=== PATIENT | female | born 1975 | race Caucasian/White ===

== ENCOUNTER 2024-07-05 12:17 | Outpatient (RCR) | payer OTHER, SELFPAY | END 2024-07-06 13:03 | disposition home or self-care (01) | LOC: PT 12:17 | PROVIDERS: PCP Family Medicine; Visit Provider Family Medicine | DX: M54.50 Low back pain, unspecified (principal); G89.29 Other chronic pain | CPT/HCPCS: 97163 ==

== ENCOUNTER 2025-02-26 12:22 | Emergency (ER) | payer OTHER, SELFPAY ==
[2025-02-26 12:35] VITALS: BP 143/79; PULSE 71; TEMP 36.6; O2SAT 96; BMI 37.8
--- NOTE | 2025-02-26 12:42 | ED.GENADUL1 ---
HPI HPI - General Adult General Chief complaint: GI Bleed Stated complaint: RECTAL BLEEDING Time Seen by Provider: 02/26/25 12:26 Source: patient and family Mode of arrival: Wheelchair Limitations: no limitations History of Present Illness HPI narrative: 49-year-old female presents for rectal bleeding. She states that about 4 days ago her abdomen started hurting and then today she had bright red blood per rectum. She has never passed blood like this before. She had a colonoscopy years ago and had polyps removed. No fever or vomiting. Related Data Home Medications ?Medication ?Instructions ?Recorded ?Confirmed albuterol sulfate 90 mcg/actuation 2 inh inhalation Q6H PRN shortness 02/26/25 02/26/25 aerosol inhaler (Ventolin HFA) of breath or wheezing aspirin 81 mg tablet,delayed 81 mg PO DAILY 02/26/25 02/26/25 release (Adult Low Dose Aspirin) atorvastatin 80 mg tablet 80 mg PO DAILY 02/26/25 02/26/25 brivaracetam 100 mg tablet 200 mg PO BID 02/26/25 02/26/25 (Briviact) bupropion HCl 100 mg tablet 100 mg PO TID 02/26/25 02/26/25 cholecalciferol (vitamin D3) 50 50 mcg PO DAILY 02/26/25 02/26/25 mcg (2,000 unit) capsule dulaglutide 3 mg/0.5 mL 3 mg subcut QWEEK 02/26/25 02/26/25 subcutaneous pen injector (Trulicity) ezetimibe 10 mg tablet 10 mg PO DAILY 02/26/25 02/26/25 fenofibrate nanocrystallized 145 145 mg PO DAILY 02/26/25 02/26/25 mg tablet gabapentin 600 mg tablet 1,200 mg PO TID 02/26/25 02/26/25 lamotrigine 200 mg tablet 200 mg PO DAILY 02/26/25 02/26/25 lubiprostone 24 mcg capsule 24 mcg PO BID PRN IBS 02/26/25 02/26/25 (Amitiza) meclizine 25 mg tablet 25 mg PO .Q6HR PRN dizziness 02/26/25 02/26/25 metoprolol tartrate 25 mg tablet 25 mg PO BID 02/26/25 02/26/25 montelukast 10 mg tablet 10 mg PO DAILY 02/26/25 02/26/25 nitroglycerin 0.4 mg sublingual 0.4 mg sublingual Q5M PRN chest 02/26/25 02/26/25 tablet pain ondansetron HCl 8 mg tablet 8 mg PO Q8H PRN nausea and vomiting 02/26/25 02/26/25 pantoprazole 40 mg tablet,delayed 40 mg PO BID 02/26/25 02/26/25 release sucralfate 1 gram tablet (Carafate) 1 g PO Q6H PRN stomach upset 02/26/25 02/26/25 topiramate 100 mg tablet 100 mg PO BID 02/26/25 02/26/25 umeclidinium 62.5 mcg-vilanterol 1 inh inhalation DAILY 02/26/25 02/26/25 25 mcg/actuation powdr for inhalation (Anoro Ellipta) valacyclovir 500 mg tablet 500 mg PO DAILY 02/26/25 02/26/25 Allergies Allergy/AdvReac Type Severity Reaction Status Date / Time dimenhydrinate (From Allergy Severe tongue Verified 02/26/25 12:35 Dramamine) swelling pregabalin (From Lyrica) Allergy Severe tonue Verified 02/26/25 12:35 swelling seafood Allergy Severe Hives Uncoded 02/26/25 13:18 Opioid HPI Opioid Management Most Recent Opioid Data: No Data to Display Review of Systems ROS Narrative A ten point review of systems is negative except as noted above. [facility] Medical History (Updated 02/26/25 @ 14:34 by Marcio Su MD) Bradycardia ?R00.1 - Bradycardia, unspecified (ICD-10) HTN (hypertension) ?I10 - Essential (primary) hypertension (ICD-10) GERD (gastroesophageal reflux disease) ?K21.9 - Gastro-esophageal reflux disease without esophagitis (ICD-10) IBS (irritable bowel syndrome) ?K58.9 - Irritable bowel syndrome, unspecified (ICD-10) On home oxygen therapy ?Z99.81 - Dependence on supplemental oxygen (ICD-10) Diabetes ?E11.9 - Type 2 diabetes mellitus without complications (ICD-10) Cardiac pacemaker ?Z95.0 - Presence of cardiac pacemaker (ICD-10) Social History Little interest or pleasure in doing things: not at all Feeling down, depressed, or hopeless: not at all Exam Narrative Exam Narrative: Nurses note and vital signs reviewed and patient is not hypoxic. General: The patient appears in no apparent distress. Patient is resting on cart. Skin: Warm, dry, no pallor noted. There is no rash noted. Head: Normocephalic, atraumatic Eye: Normal conjunctiva, no drainage Ears, Nose, Mouth, and Throat: oral mucosa is moist. Nares patent. Cardiovascular: Regular Rate and Rhythm Respiratory: Patient is in no distress, no accessory muscle use, lungs are clear to auscultation, no wheezing, rales or rhonchi Back: non-tender GI: Obese, mild diffuse tenderness. Perianal examination shows no external hemorrhoids. Musculoskeletal: The patient has no evidence of calf tenderness, no pitting edema, symmetrical pulses noted bilaterally Neurological: A&O, normal speech Psychiatric: Cooperative Constitutional Vital Signs, click to edit/add: Last Vital Signs Temp 97.9 F 02/26/25 12:35 Pulse 71 02/26/25 12:35 Resp 18 02/26/25 12:35 BP 143/79 H 02/26/25 12:35 Pulse Ox 96 02/26/25 12:35 O2 Del Method Room Air 02/26/25 12:35 Course Vital Signs Vital signs: Vital Signs Temperature 97.9 F 02/26/25 12:35 Pulse Rate 71 02/26/25 12:35 Respiratory Rate 18 02/26/25 12:35 Blood Pressure 143/79 H 02/26/25 12:35 Pulse Oximetry 96 02/26/25 12:35 Oxygen Delivery Method Room Air 02/26/25 12:35 Temperature 97.9 F 02/26/25 12:35 Pulse Rate 71 02/26/25 12:35 Respiratory Rate 18 02/26/25 12:35 Blood Pressure 143/79 H 02/26/25 12:35 Pulse Oximetry 96 02/26/25 12:35 Oxygen Delivery Method Room Air 02/26/25 12:35 Medical Decision Making MDM Narrative Medical decision making narrative: Hemoglobin is normal. CT scan shows no cause for the bleeding. There is no evidence of colitis or diverticulitis. She is referred to general surgery for follow-up. Treatment diagnosis and follow-up were discussed with the patient. Differential Diagnosis Differential Diagnosis: Hemorrhoid, diverticulitis, colitis Lab Data Lab results reviewed: Yes I reviewed the patient's lab results Labs: Lab Results 02/26/25 Range/Units 13:00 WBC 9.3 (4.0-11.0) 10^3/uL RBC 5.06 (4.20-5.40) 10^6/uL Hgb 17.0 H (12.0-16.0) g/dL Hct 50.8 H (36.0-48.0) % MCV 100.4 H (81.0-99.0) fL MCH 33.6 (26.7-34.0) pg MCHC 33.5 (29.9-35.2) g/dL RDW 13.3 (11.0-15.0) % Plt Count 193 (150-450) 10^3/uL MPV 10.9 (9.5-13.5) fL Neut % (Auto) 55.4 (43.0-75.0) % Lymph % (Auto) 36.2 (20.5-60.0) % [place] % (Auto) 5.4 (1.7-12.0) % Eos % (Auto) 2.1 (0.9-7.0) % Baso % (Auto) 0.5 (0.2-2.0) % Neut # (Auto) 5.1 (1.4-6.5) 10^3/uL Lymph # (Auto) 3.4 (1.2-3.8) 10^3/uL [place] # (Auto) 0.5 (0.3-0.8) 10^3/uL Eos # (Auto) 0.2 (0.0-0.7) 10^3/uL Baso # (Auto) 0.1 (0.0-0.1) 10^3/uL Abs Immat Gran (auto) 0.04 H (0.00-0.03) 10^3/uL Imm/Tot Granulo (auto) 0.4 (0.0-0.5) % Sodium 134 L (136-145) mmol/L Potassium 4.5 (3.5-5.1) mmol/L Chloride 104 (98-107) mmol/L Carbon Dioxide 19.9 L (21.0-32.0) mmol/L Anion Gap 14.6 BUN 20.0 H (7.0-18.0) mg/dL Creatinine 1.04 H (0.55-1.02) mg/dL Est GFR ( Amer) >60 (>=60 mL/min/1.73m^2) Est GFR (Non-Af Amer) 56 L (>=60 mL/min/1.73m^2) BUN/Creatinine Ratio 19.2 Glucose 166 H (74-106) mg/dL Calcium 8.5 (8.5-10.1) mg/dL Total Bilirubin 0.3 (0.2-1.0) mg/dL Direct Bilirubin 0.1 (0.0-0.2) mg/dL AST 18 (15-37) U/L ALT 32 (14-59) U/L Alkaline Phosphatase 51 (46-116) U/L Total Protein 6.8 (6.4-8.2) g/dL Albumin 3.2 L (3.4-5.0) g/dL Globulin 3.6 g/dL Albumin/Globulin Ratio 0.9 Amylase 34 (25-115) U/L Lipase 71.0 (16.0-77.0) U/L Imaging Data CT scan - abdomen: Radiologist's impression: Number fat stranding, no other acute process in the abdomen/pelvis Discharge Plan Discharge Chief Complaint: GI Bleed Clinical Impression: Rectal bleed Patient Disposition: Home, Self-Care Time of Disposition Decision: 14:34 Condition: Good Mode of Transportation: Private Vehicle Prescriptions / Home Meds: No Action atorvastatin 80 mg tablet 80 mg PO DAILY Briviact 100 mg tablet 200 mg PO BID cholecalciferol (vitamin D3) 50 mcg (2,000 unit) capsule 50 mcg PO DAILY Trulicity 3 mg/0.5 mL pen injector 3 mg SUBCUT QWEEK ezetimibe 10 mg tablet 10 mg PO DAILY fenofibrate nanocrystallized 145 mg tablet 145 mg PO DAILY gabapentin 600 mg tablet 1,200 mg PO TID lamotrigine 200 mg tablet 200 mg PO DAILY meclizine 25 mg tablet 25 mg PO .Q6HR PRN (Reason: dizziness) metoprolol tartrate 25 mg tablet 25 mg PO BID montelukast 10 mg tablet 10 mg PO DAILY nitroglycerin 0.4 mg tablet, sublingual 0.4 mg sublingual Q5M PRN (Reason: chest pain) pantoprazole 40 mg tablet,delayed release (DR/EC) 40 mg PO BID topiramate 100 mg tablet 100 mg PO BID Anoro Ellipta 62.5-25 mcg/actuation blister with device 1 inh INHALATION DAILY valacyclovir 500 mg tablet 500 mg PO DAILY sucralfate [Carafate] 1 gram tablet 1 g PO Q6H PRN (Reason: stomach upset) lubiprostone [Amitiza] 24 mcg capsule 24 mcg PO BID PRN (Reason: IBS) bupropion HCl 100 mg tablet 100 mg PO TID Rx Instructions: administer 6 hours apart ondansetron HCl 8 mg tablet 8 mg PO Q8H PRN (Reason: nausea and vomiting) Rx Instructions: 1st dose 1-2 hr before radiation albuterol sulfate [Ventolin HFA] 90 mcg/actuation HFA aerosol inhaler 2 inh inhalation Q6H PRN (Reason: shortness of breath or wheezing) aspirin [Adult Low Dose Aspirin] 81 mg tablet,delayed release (DR/EC) 81 mg PO DAILY Print Language: [place] Instructions: Rectal Bleeding (ED) Referrals: Pool Treadwell MD [Physician] - 1 week Pool Buchanan MD [Physician] - 1 week TUSHAR MALDONADO [Primary Care Provider] - 1 week
[2025-02-26 13:05] LABS: Basophils Absolute Auto 0.1 10^3/uL (0.0-0.1); Basophils Percent Auto 0.5 % (0.2-2.0); Eosinophils Absolute Auto 0.2 10^3/uL (0.0-0.7); Eosinophils Percent Auto 2.1 % (0.9-7.0); Hematocrit 50.8 % (36.0-48.0); Immature Granulocytes Abs Auto 0.04 10^3/uL (0.00-0.03); Immature Granulocytes Pct Auto 0.4 % (0.0-0.5); Lymphocytes Absolute Auto 3.4 10^3/uL (1.2-3.8); Lymphocytes Percent Auto 36.2 % (20.5-60.0); Mean Corpuscular HGB Conc 33.5 g/dL (29.9-35.2); Mean Corpuscular Hemoglobin 33.6 pg (26.7-34.0); Mean Corpuscular Volume 100.4 fL (81.0-99.0); Mean Platelet Volume 10.9 fL (9.5-13.5); Monocytes Absolute Auto 0.5 10^3/uL (0.3-0.8); Monocytes Percent Auto 5.4 % (1.7-12.0); Neutrophils Absolute Auto 5.1 10^3/uL (1.4-6.5); Neutrophils Percent Auto 55.4 % (43.0-75.0); Platelet Count 193 10^3/uL (150-450); Red Blood Count 5.06 10^6/uL (4.20-5.40); Red Cell Distribution Width 13.3 % (11.0-15.0); White Blood Count 9.3 10^3/uL (4.0-11.0)
[2025-02-26 13:22] LABS: Alanine Aminotransferase 32 U/L (14-59); Albumin Globulin Ratio 0.9; Albumin Level 3.2 g/dL (3.4-5.0); Alkaline Phosphatase 51 U/L (46-116); Anion Gap 14.6; Aspartate Amino Transferase 18 U/L (15-37); BUN Creatinine Ratio 19.2; Bilirubin Direct 0.1 mg/dL (0.0-0.2); Bilirubin Total 0.3 mg/dL (0.2-1.0); Calcium 8.5 mg/dL (8.5-10.1); Carbon Dioxide 19.9 mmol/L (21.0-32.0); Chloride 104 mmol/L (98-107); Estimated GFR (African America >60 (>=60 mL/min/1.73m^2); Estimated GFR (Non-African Ame 56 (>=60 mL/min/1.73m^2); Globulin 3.6 g/dL; Glucose 166 mg/dL (74-106); Potassium 4.5 mmol/L (3.5-5.1); Sodium 134 mmol/L (136-145); Total Protein 6.8 g/dL (6.4-8.2)
[2025-02-26 13:25] LABS: Amylase 34 U/L (25-115)
== END 2025-02-26 14:48 | disposition home or self-care (01) ==
PROVIDERS: Emergency Provider Emergency Medicine; PCP Family Medicine
DX: K62.5 Hemorrhage of anus and rectum (principal); Z86.0100 Personal history of colon polyps, unspecified; Z95.0 Presence of cardiac pacemaker
CPT/HCPCS: 36415; 74176; 80048; 80076; 82150; 83690; 85025; 99284

== ENCOUNTER 2025-08-15 10:48 | Emergency (ER) | payer OTHER, SELFPAY ==
[2025-08-15 11:03] VITALS: BP 107/80; PULSE 81; TEMP 37.2; O2SAT 97; BMI 33.5
--- OUTSIDE RECORDS SUMMARY | 2025-08-15 11:08 | XMS_ITS | CCD ---
Author Organization [facility] Care Team Providers Care Oracle Drm Consultant Name Role Phone UNKNOWN, PROVIDER Unavailable Unavailable UNKNOWN, PROVIDER Unavailable Unavailable UNKNOWN, PHYSICIAN Unavailable Unavailable UNKNOWN, PHYSICIAN Unavailable Unavailable ELDER EVANS Unavailable Unavailable MINDY MORGAN Unavailable Unavailable BERNARDO, VESELIN Unavailable Unavailable MINDY MORGAN F Unavailable Unavailable Narciso Funez Unavailable Unavailable Omoregie, Oliver Unavailable Unavailable Mindy Morgan Unavailable Unavailable Leroy Marwilda T Unavailable Unavailable Omoregie, Oliver Unavailable Unavailable Addie, Anat Unavailable Unavailable Arafah, Baha Unavailable Unavailable Mindy Morgan Unavailable Unavailable Unavailable Mindy Morgan Unavailable Robert Spann Unavailable Omoregie, Oliver Unavailable Unavailable Gilda Leong Unavailable Mindy Morgan Primary Care Physician Rose Mary White Unavailable Mindy Morgan Primary Care Provider Brianna Kamara Unavailable Mindy Morgan Primary Care Provider Brianna Kamara Unavailable [phone] DIONISIO, NONE LISTED Primary Care Unavaila ble JANE LEVINE Consulting Unavailable JANE LEVINE Attending Unavailable JANE LEVINE Admitting Unavailable CHAS ANDUJAR Consulting Unavailable PROVIDER, UNKNOWN Attending Unavailable PROVIDER, UNKNOWN Admitting Unavailable Unavailable Primary Care Provider UnavailDr. Mindy Smith Primary Care Un available Macho, . Gilberto Yomaira Referring Jamin Estrada, Ms. Gilberto Burnette Attending Mindy Ghotra MD Primary Care Provider Brianna Kamara DO Unavailable Eddie SHANKS, Mindy Hancock Primary Care Provid er VI SALDANA Attending Unavailable MINDY MORGAN Primary Care Corrine Morgan MD, Mindy Hancock Primary [facility] Provid er Ramiro Bhandari MD Unavailable Steph Auguste PA-Cin L Unavailable Gilda Leong MD Unavailable Geovany Ventura MD Unavailable ANALIA GRAY Admitting Unavailable ANALIA GRAY Attending Unavailable SARY SHEETS Admitting Unavaila ble SARY SHEETS Attending Unavaila ble Hahugo, Astrit H Attending Unavailable Tarah Escobar Attending Unavailable Hamagdalenaari, Astrit H Attending Unavailable REFERRAL, SELF Admitting Unavailable REFERRAL, SELF Attending Unavailable REFERRAL, SELF Referring Unavailable ROSA JENKINS Attending Unavailable ANALIA GRAY Attending Unavailable ANALIA GRAY Admitting Unavailable Geovany Ventura MD Unavailable Hina SAUCEDA Oliver L Unavailable Mindy Morgan Admitting Unavailable Mindy Morgan Attending Unavailable Nain Pinto. Attending Unavailable Nain Pinto. Attending Unavailable Mindy Morgan Admitting Unavailable Mindy Morgan Attending Unavailable Mindy Morgan Attending Unavailable Mindy Morgan Admitting Unavailable Ubaldo Nevarez Attending Unavailable Eddie SHANKS, Mindy Hancock Primary [facility] Provid er Ramiro Bhandari MD Unavailable Gilda Leong MD Unavailable Joshua SHANKS, Geovany Rosado Unavailable Ubaldo Nevarez Attending Unavailable Ubaldo Nevarez Attending Unavailable Mindy Morgan Attending Unavailable Mindy Morgan Admitting Unavailable Ramiro Bhandari MD Unavailable Mindy Morgan MD Primary Care Provider ROSE MARY WHITE Referring Unavailable ROSE MARY WHITE Primary Care Unavailable Mindy Morgan MD Primary Care Provider Hina SAUCEDA, Oliver Tariq Unavailable Rj Westbrook MD, Kaley Nascimento Unavailable SUAD JONES Attending Unavailable SUAD JONES Referring Unavailable HENRY GARCIA Referring Unavailable HENRY GARCIA Attending Unavailable SUAD JONES Attending Unavailable CHARISSA SETH Referring Unavailable CHARISSA SETH Attending Unavailable SUAD JONES Attending Unavailable ANALIA GRAY Referring Unavailable MORGAN, MINDY [facility] ANALIA Corbin Referring Unavailable MORGAN, MINDY [facility] GILDA Redmond Referring Unavailable MORGAN, MINDY [facility] GEOVANY Canales Referring Unavailable MORGAN, MINDY H[facility] GEOVANY Canales Referring Unavailable MORGAN, MINDY HANCOCK [facility] RAMIRO Lindsey Referring Unavail able MORGAN, [facility] Farheenvai RAM[facility]O Lynch Referring Unavail able MORGAN, MINDY [facility] GILDA Redmond Referring Unavailable MORGAN, MINDY [facility] GEOVANY Canales Referring Unavailable MORGAN, MINDY [facility] KALEY Abdi Referring Unav ailable MORGAN, [facility] Mindy Reinoso Attending Unavailable Mindy Morgan Admitting Unavailable Preet Ernst Attending Unavailable Dana Engel Attending Unavailable LENIN BAJWA Attending Unavailable EDDIE, [facility] UnaROGER Smith Attending Unavailable MORGAN, [facility] Unavai lable RAMIRO BHANDARI Referring Unavail able MORGAN, [facility] Unavai lable RAMIRO BHANDARI Referring Unavail able MORGAN, [facility] Unavai lable RAMIRO BHANDARI Referring Unavail able MORGAN, [facility] Unavai lable KALEY DALE Attending Farheenv ailable RAMIRO BHANDARI Referring Unavail able MORGAN, [facility] Unavai GILDA Teresa Attending Unavailable EDDIE, [facility] Unavai labdavy LEONG, GILDA العلي Attending Unavailable EDDIE, [facility] Unavai JAYCE Gutiérrez Attending Unavailable MORGAN, [facility] UnavaLENIN Blackwell Attending Unavailable EDDIE, [facility] Unavai RICO Saleem Attending Unavailable MORGAN, [facility] Unavai labGILDA Lynn Attending Unavailable EDDIE, [facility] Unavai lable RAMIRO BHANDARI Attending Unavail able EDDIE, [facility] GEOVANY Canales Attending Unavailable EDDIE, [facility] Unavai lable RAMIRO BHANDARI Attending Unavail able EDDIE, [facility] Unavai lable Ramiro Bhandari Attending Unavailab le Ramiro Bhandari Admitting Unavailab le Eddie, [facility] Unavailable Ramiro Bhandari Admitting Unavailab le Ramiro Bhandari Attending Unavailab le Eddie, [facility] Unavailable Suad Jones Admitting Unavailable Suad Jones Attending Unavailable Eddie, [facility] Unavailable Annemarie London Admitting Unavailable Annemarie London Attending Unavailable Eddie Mindy [facility] Unavailable Eddie Mindy [facility] Unavailable Santi Pickering Jr Admitting Unavailable Santi Pickering Jr Attending Unavailable Steven Ott Attending Unavailable Yoli Waterman Admitting Unavailable Morgan, Mindy [facility] Unavailable Analia Castellanos Consulting Unavailable Oliver Syed Consulting Unavailable Mor Lopez II Consulting Unavaila min Leong, Mayra Consulting Unavailable Jaylin Sparks Consulting Unavailable Pastora Anderson Consulting Unavailable Loan Trejo Consulting Unavailable Ron, Jodie Franco Consulting UnavailConstance Gamino Consulting Unavailable Litzy Carranza Consulting Unavailable Charissa Marcum Consulting Unavailable Ramiro Bhandari Admitting Unavailab davy Bhandari, Ramiro Attending Unavailab Rustam Horanhanie [facility] Unavailable Suad Jones Referring Unavailable Ramiro Bhandari Admitting Unavailab davy Bhandari, Ramiro Attending [facility]availab [facility] Allergies Allergy Classification Reported Allergen(s) Allergy Type Date of Onset Reaction(s) Facility Fish (8 sources) shellfish, unspecified Food Allergy [facility] [address] Work Phone: pregabalin (8 sources) pregabalin; Translations: [Lyrica CAPS] Drug Allergy -[facility]ocrin[facility] [address] Work Phone: (20 sources) pregabalin; Translations: [Lyrica CAPS] Drug Allergy 07-29-20 23 Unknown [facility] [employer] Work Phone: (20 sources) shellfish, unspecified; Translations: [Seafood] allergy to substance Other, Hives [facility] Work Phone: (7 sources) dimenhyDRINATE; Translations: [Dramamine] Drug Allergy Other [facility] (7 sources) pregabalin; Translations: [Lyrica] Drug Allergy Unknown [facility] (20 sources) DULoxetine; Translations: [Cymbalta] Drug Allergy 07-16-20 22 Swelling, Unknown [facility] (20 sources) fluticasone / salmeterol; Translations: [fluticasone-salm eterol] Drug Allergy 11-16-19 19 [facility] (20 sources) metFORMIN; Translations: [metformin] Drug Allergy 03-19-20 25 [facility] (3 sources) predniSONE Drug Allergy Unknown [facility] [employer] Other (13 sources) Seafood Propensity to adverse reactions Unknown [facility] [employer] Other (20 sources) dimenhyDRINATE; Translations: [dimenhydrinate] Drug Allergy Unknown, [facility] (12 sources) Fish derivative Drug Allergy 12-10-19 17 Anaphylaxis, [facility] (20 sources) insulin aspart, human; Translations: [INSULIN ASPART] Drug Allergy 12-10-19 17 [facility] (1 source) DULoxetine Drug Allergy [facility] (1 source) pregabalin Drug Allergy 03-26-20 17 [facility] (1 source) Shellfish Drug allergy (disorder) [facility] (8 sources) Meclizine Drug Allergy 07-16-20 22 [facility] (20 sources) Shellfish; Translations: [SHELLFISH DERIVED] Allergy to substance 07-29-20 23 Unknown [facility] Work Phone: (4 sources) DULoxetine; Translations: [DULOXETINE] Drug Allergy 07-29-20 23 [facility] Repository (17 sources) pregabalin; Translations: [PREGABALIN] Drug Allergy 05-29-20 16 [facility] 2 Repository (6 sources) Latex; Translations: [Latex] Propensity to adverse reactions (disorder) [facility] Repository (6 sources) No Known Medication Allergies; Translations: [No Known Medication Allergies] Propensity to adverse reactions (disorder) [facility] (20 sources) Fish; Translations: [FISH CONTAINING PRODUCTS] Propensity to adverse reactions 08-09-20 Anaphylaxis [facility] Work Phone: (20 sources) Iodinated Contrast Media; Translations: [IODINATED CONTRAST MEDIA] Propensity to adverse reactions 08-09-20 Anaphylaxis [facility] Work Phone: (13 sources) DULoxetine Drug Allergy 04-15-20 23 Swelling [facility] (13 sources) insulin aspart, human Drug Allergy 12-10-19 17 Rash [facility] (13 sources) Meclizine Drug Allergy 07-16-20 22 Swelling [facility] (13 sources) Other Allergy to substance 08-10-20 23 Hives [facility] (13 sources) Shellfish-Derived Products Drug Intolerance 12-10-19 17 Anaphylaxis, Rash [facility] (10 sources) Dimenhydrinate Allergy to substance 03-19-20 [facility] Medications Current Medications Medication Drug Class(es) Dates Sig (Normalized) Sig (Original) acetaminophen 325 mg oral tablet (3 sources) Start: 05-02-2024 take 1 tablet by mouth every four hours as needed 650 mg, oral, Every 4 hours PRN, pain mild (1-3), first line, pain moderate (4-6), first line, Starting on Wed05/02/24 at 1534, If ordered PRN for pain, nurse is permitted to administer this medication for higher pain scores based on patient preference? Yes Start: 05-02-2024 End: 05-02-2024 take 2 tablets by mouth every four hours for pain acetaminophen (Tylenol) 325 mg tablet Indications: Postoperative pain Take 2 tablets (650 mg) by mouth every 4 hours if needed for mild pain (1 - 3) or moderate pain (4 - 6). 05/02/2024 05/02/2024 Discontinued (Stop Taking at Discharge) Start: 12-10-2023 take 1 tablet by iraj every four hours as needed acetaminophen (Tylenol) tablet 650 mg acetaminophen 325 mg / oxyCODONE hydrochloride 5 mg oral tablet (18 sources) Opioid Agonist Start: 03-10-2025 take 1-2 tablets by mouth every six hours as needed for pain oxyCODONE-acetaminophen (Percocet) 5-325 MG tablet TAKE 1 - 2 TABS ORALLY EVERY 6 HOURS NEEDED FOR PAIN FOR 3 DAYS 03/10/2025 Active Start: 05-05-2017 take 2 tablets by mo uth every four hours as needed for pain oxyCODONE-Acetaminophen 5-325 MG Oral Tablet TAKE 2 TABLETS BY MOUTH EVERY 4 HOURS NEEDED FOR PAIN Quantity: 20 Refills: 0 Start : 05-May-2017 Active [id number] actuat albuterol 0.09 mg/actuat metered dose inhaler (20 sources) beta2-Adrenergic Agonist Start: 10-25-2023 take 2 puff(s) by inhalation every four hours as needed Albuterol Sulfate HFA 108 (90 Base) MCG/ACT 2 puffs as needed Inhalation every 4 hrs for 30 days ADDIS Oct, Active Start: 04-04-2020 take 2.5 mg by inhal ation every six hours as needed albuterol 0.083% Inh Tiffanie 3 mL 2.5 mg, 3 mL, Inhalation, q6hr, Refill(s) 12, Q6H and PRN Start Date: 04/04/20 Status: Ordered Repeat number: 1 Start: 04-04-2020 take 2.5 mg by inhal ation every six hours as needed albuterol 0.083% Inh Tiffanie 3 mL 2.5 mg, 3 mL, Inhalation, q6hr, Refill(s) 12, Q6H and PRN Start Date: 04/04/20 Status: Ordered Start: 01-01-2017 take 2 puff(s) by in halation every six hours albuterol (Ventolin HFA) 90 mcg/actuation inhaler Inhale 2 puffs every 6 hours if needed. 01/01/2017 Active Start: 01-01-2017 take 2 puff(s) by in halation four times daily albuterol (Ventolin HFA) 90 mcg/actuation inhaler Inhale 2 puffs 4 times a day. 0 01/01/2017 Active Start: 01-01-2017 take 2 puff(s) by in halation four times daily Ventolin HFA 108 (90 Base) MCG/ACT Inhalation Aerosol Solution INHALE 2 PUFFS INTO THE LUNGS 4 TIMES DAILY. Quantity: 18 Refills: 0 Ordered: 01-Jan-2017 DO Start : 01-Jan-2017 Active Start: 01-01-2017 take 2 puff(s) by in halation four times daily Ventolin HFA 108 (90 Base) MCG/ACT Inhalation Aerosol Solution INHALE 2 PUFFS INTO THE LUNGS 4 TIMES DAILY. Quantity: 18 Refills: 0 Start : 01-Jan-2017 Active Ventolin HFA 108 (90 Base) MCG/ACT inhaler Active take 2 puff(s) by in halation every six hours as needed Ventolin HFA 108 (90 Base) MCG/ACT inhaler INHALE 2 PUFFS NEEDED EVERY 6 HOURS FOR 90 DAYS Active albuterol HFA (P ROVENTIL HFA, VENTOLIN HFA) 90 mcg/actuation inhaler Inhale 2 Puffs as instructed. Active ALBUTEROL INHALA TION Inhale as instructed. Active Albuterol Sulfat e (2.5 MG/3ML) 0.083% 1 unit dose Inhalation four times a day DX J44.9 COPD for 30 day(s) Active Albuterol Sulfat e (2.5 MG/3ML) 0.083% 1 unit dose Inhalation four times a day DX J44.9 COPD for 30 day(s) Active ALBUTEROL INHALA TION Inhale as instructed. 0 Active Albuterol Sulfat e (2.5 MG/3ML) 0.083% Inhalation Nebulization Solution Refills: 0 Active Comment on above: Inhale as instructed . Inhale 2 Puffs as in structed. Albuterol (Eqv-ProAir HFA) 90 mcg/inh inhalation aerosol (1 source) Start: 5 End: 5 take 2 puff(s) by inhalation every six hours Albuterol (Eqv-ProAir HFA) 90 mcg/inh inhalation aerosol 2 puff(s), Inhalation, q6hr for 7 day(s), 6.7 gm, Refill(s) 0, [facility]/pharmacy #[id number], 165, cm, 01/09/25 12:41:00 EST, Height/Length Dosing, 98, kg, 01/09/25 12:41:00 EST, Weight Dosing Start Date: 01/09/25 Stop Date: 01/16/25 Status: Ordered albuterol CFC free 90 mcg/inh Inh Aer w/Adapt 8 gm (Ventolin) (20 sources) Start: 8 take 2 puff(s) by inhalation four times daily albuterol CFC free 90 mcg/inh Inh Aer w/Adapt 8 gm (Ventolin) 2 puff(s), Inhalation, QID, 1 EA, Refill(s) 0 Start Date: 06/01/18 Status: Ordered Quantity: 1.0 Unit: EA Repeat number: 1 Start: 06-01-2018 take 2 puff(s) by in halation four times daily albuterol CFC free 90 mcg/inh Inh Aer w/Adapt 8 gm (Ventolin) 2 puff(s), Inhalation, QID, 1 EA, Refill(s) 0 Start Date: 06/01/18 Status: Ordered Anoro Ellipta 62.5-25 MCG/INH (1 source) Start: 06-12-2021 take 1 puff(s) by inhalation once daily Anoro Ellipta 62.5-25 MCG/INH 1 puff Inhalation Once a day for 90 day(s) Jun, Active Aspir-81 81 MG (13 sources) take 1 tablet by iraj th once daily Aspir-81 81 MG 1 tablet Orally Once a day Active aspirin 81 mg chewable tablet (20 sources) Platelet Aggregation Inhibitor, Nonsteroidal Anti-inflammatory Drug Start: 02-09-2024 End: 02-08-2025 aspirin 81 mg chewable tablet Indications: Atherosclerosis of [place] artery of both lower extremities with intermittent claudication ([facility]) Chew 1 tablet (81 mg) once daily. 90 tablet 3 02/09/2024 02/08/2025 Active Start: 04-04-2020 take 1 tablet by iraj th once daily aspirin 81 mg Oral EC Tab 81 mg = 1 tab(s), Oral, Daily, # 30 tab(s), Refills(s) 0 Start Date: 04/04/20 Status: Ordered Start: 12-28-2018 End: 11-24-2023 take 1 tablet by mouth once daily aspirin, enteric coated (ECOTRIN LOW STRENGTH) 81 mg EC tablet Take 1 tablet by mouth once daily. 12/28/2018 Active Comment on above: Take 1 tablet by iraj th once daily. atorvastatin 80 mg oral tablet (20 sources) HMG-CoA Reductase Inhibitor Start: 4 End: take 1 tablet by mouth once daily at bedtime atorvastatin (Lipitor) 80 mg tablet Indications: Hyperlipidemia LDL goal Take 1 tablet (80 mg) by mouth once daily at bedtime. 90 tablet 3 02/09/2024 Active Start: 04-04-2020 End: 01-13-2024 take 2 tablets by mouth once daily Lipitor 20 mg Tab 40 mg = 2 tab(s), Oral, Daily, 40 mg, # 30 tab(s), Refills(s) 0 Start Date: 04/04/20 Status: Ordered Quantity: 30.0 Unit: tab(s) Repeat number: 1 Start: 08-01-2019 End: 02-09-2024 take 1 tablet by mouth once daily at bedtime atorvastatin (Lipitor) 40 mg tablet Indications: Hyperlipidemia LDL goal TAKE 1 TABLET BY MOUTH EVERYDAY AT BEDTIME 90 tablet 3 2023 02/09/2024 Discontinued (Reorder) Start: 08-01-2019 take 1 tablet by iraj th once daily Lipitor 20 mg Tab 20 mg = 1 tab(s), Oral, Daily, # 30 tab(s), Refills(s) 0 Start Date: 04/04/20 Status: Ordered Comment on above: Take 20 mg by mouth once daily. Take 40 mg by mouth once daily. Take 1 tablet by iraj th once daily. brivaracetam 100 mg oral tablet (20 sources) Start: 05-29-2021 End: 07-11-2025 take 2 tablets by mouth twice daily brivaracetam (Briviact) 100 mg tablet tablet Indications: Partial symptomatic epilepsy with complex partial seizures, intractable, without status epilepticus Take 2 tablets (200 mg) by mouth 2 times a day. 120 tablet 5 07/11/2025 Active Start: 05-29-2021 take 1 tablet by iraj th once, then take 2 tablets by mouth twice daily Briviact 100 MG Oral Tablet 1 po bidx week, 2 po bid. Quantity: 120 Refills: 5 Ordered: 31-Jul-2021 Gilda Leong MD Start : 29-May-2021 Active Start: 05-29-2021 Briviact 50 MG Oral Tablet Quantity: 60 Refills: 0 Ordered: 09-Jul-2021 DO Start : 29-May-2021 Active Comment on above: Take 200 mg by mouth twice daily. Budesonide / formoterol (12 sources) Corticosteroid, beta2-Adrenergic Agonist take 2 puff(s) by inhalation twice daily budesonide-formoterol (SYMBICORT) 160-4.5 mcg/actuation inhaler Inhale 2 Puffs as instructed twice daily. Active take 2 puff(s) by in halation twice daily budesonide-formoterol (SYMBICORT) 160-4. 5 mcg/actuation inhaler Inhale 2 Puffs as instructed twice daily. 0 Active Comment on above: Inhale 2 Puffs as in structed twice daily. 12 hr buPROPion hydrochloride 150 mg extended release oral tablet (20 sources) Aminoketone Start: 06-04-2025 buPROPion SR (Wellbutrin SR) 150 mg 12 hr tablet Indications: H/O ETOH abuse , Current every day smoker Take one tablet once daily for first three days, then increase to twice daily there after. 60 tablet 2 06/04/2025 Active Start: 10-10-2023 take 1 tablet by iraj th every twelve hours in the morning buPROPion SR (Wellbutrin SR) 150 MG 12 hr tablet Take 150 mg by mouth in the morning and 150 mg before bedtime. 10/10/2023 Active Start: 10-10-2023 End: 02-14-2025 take 1 tablet by mouth three times daily buPROPion SR (Wellbutrin SR) 150 mg 12 hr tablet Take 1 tablet (150 mg) by mouth 3 times a day. 10/10/2023 02/14/2025 Discontinued (Med List Cleanup) cephalexin 500 mg oral capsule (20 sources) Cephalosporin Antibacterial Start: 01-10-2023 take 1 capsule by mouth four times daily cephalexin 500 mg Cap 500 mg = 1 cap(s), Oral, QID, # 40 cap(s), Refills(s) 0, Pharmacy: [facility]/pharmacy #[id number], 167, cm, 01/10/23 15:16:00 EST, Height/Length Dosing, 88, kg, 01/10/23 15:16:00 EST, Weight Dosing Start Date: 01/10/23 Status: Ordered Quantity: 40.0 Unit: cap(s) Repeat number: 1 Start: 12-09-2016 take 10 mL by mouth three times daily Cephalexin 250 MG/5ML Oral Suspension Reconstituted TAKE 10 MLS BY MOUTH 3 TIMES DAILY. Quantity: 200 Refills: 0 Start : 09-Dec-2016 Active cholecalciferol 0.05 mg oral tablet (20 sources) Vitamin D cholecalciferol (Vitamin D-3) 50 MCG (1999 UT) tablet Take 1 tablet (2,000 Units) by mouth once daily. Once weekly on wednesday Active take 1 capsule by mo uth two times weekly cholecalciferol (Vitamin D-3) 1.25 MG (5 0000 UT) capsule Take 50,000 Units by mouth 2 (two) times a week Active cholecalciferol (Vitamin D-3) 125 MCG (5000 UT) capsule Take 1 capsule (125 mcg) by mouth once daily. Once weekly on wednesday Active cholecalciferol (Vitamin D-3) 125 MCG (5000 UT) capsule Take 1 capsule (125 mcg) by mouth 1 (one) time per week. Once weekly on wednesday Active take 1 capsule by mouth every we ek cholecalciferol (Vitamin D-3) 125 MCG (5000 UT) capsule Take 1 capsule (5,000 Units) by mouth 1 (one) time per week. 0 Active Comment on above: Take 50,000 Units by mouth twice a week. Take 50,000 Units by mouth two times a week. Cipro HC Otic 0.2%-1% Susp-Otic (1 source) Start: 09-24-2022 End: 10-04-2022 Cipro HC Otic 0.2%-1% Susp-Otic 3 drop(s), Otic, BID for 10 day(s), 10 mL, Refill(s) 0, 167, cm, 09/24/22 17:00:00 EST, Height/Length Dosing, 96, kg, 09/24/22 17:00:00 EST, Weight Dosing Start Date: 09/24/22 Stop Date: 10/04/22 Status: Ordered ciprofloxacin 3 mg/ml / dexamethasone 1 mg/ml otic suspension (9 sources) Corticosteroid, Quinolone Antimicrobial Start: 10-12-2023 End: 10-22-2023 ciprofloxacin-dexamethas one (CiproDEX) otic suspension Indications: Acute nonsuppurative otitis media , Otorrhea of right ear Administer 4 drops into the right ear 2 times a day for 10 days. 7.5 mL 0 10/12/2023 10/22/2023 Active Start: 12-02-2017 Ciprodex 0.3-0 .1 % Otic Suspension 4 drops in the right ear once a day for 10 days Quantity: 1 Refills: 5 Narciso Funez MD Start : 02-Dec-2017 Active 7.5 ML Bottle clotrimazole 10 mg/ml topical cream (20 sources) Azole Antifungal Start: 04-20-2017 clotrimazole (LOTRIMIN, CLOTRIM) 1 % cream Clotrimazole [facility] Clotrimazole 1 % External Cream APPLY TWICE A DAY TO FUNGAL RASH IN BELLY BUTTON, UNDER BREASTS, AND I Quantity: 30 Refills: 0 Start : 20-Apr-2017 Active 04-20-2017 [facility] ([id number]) 04/20/2017 Active Start: 04-20-2017 [facility] Clotrimazo le 1 % External Cream APPLY TWICE A DAY TO FUNGAL RASH IN BELLY BUTTON, UNDER BREASTS, AND I Quantity: 30 Refills: 0 Ordered: 20-Apr-2017 DO Start : 20-Apr-2017 Active Comment on above: Clotrimazole [facility] Sharla trimazole 1 % External Cream APPLY TWICE A DAY TO FUNGAL RASH IN BELLY BUTTON, UNDER BREASTS, AND I Quantity: 30 Refills: 0 Start : 20-Apr-2017 Active 04-20-2017 [facility] ([id number]) Continuous Blood Gluc Sensor (FreeStyle Magnolia 2 Sensor) misc (13 sources) Start: 10-10-2022 Continuous [facility] Gluc Sensor (FreeStyle Magnoila 2 Sensor[facility] 10[facility]10[facility]22 Active Start: 10-10-2022 Continuous Blo od Gluc Sensor (FreeStyle Magnolia 2 Sensor) [facility] USE DIRECTED. CHANGE SENSOR EVERY 14 DAYS 10/10/2022 Active cyclobenzaprine hydrochloride 10 mg oral tablet (20 sources) Muscle Relaxant Start: 10-12-2022 End: 11-24-2023 cyclobenzaprine (Flexeril) 10 MG tablet Take 10 mg by mouth as needed in the morning and 10 mg as needed at noon and 10 mg as needed in the evening. 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 -take 1mg of dexamethasone around 10- 11 pm, blood work at 8am 1 tablet 12/28/2024 01/18/2025 Discontinued (Therapy completed) Start: 05-15-2020 Dexamethasone 0.5 MG Oral Tablet take 2 pills at 11pm on on May 17 Quantity: 2 Refills: 0 Anat Real MD Start : 15-May-2020 Active Start: 02-27-2020 Dexamethasone 1 MG Oral Tablet take once between 11p and midnight on night before blood work Quantity: 1 Refills: 1 Oliver Auguste PA-C Start : 27-Feb-2020 Active diclofenac sodium 0.01 mg/mg topical gel (20 sources) Nonsteroidal Anti-inflammatory Drug Start: 07-06-2022 diclofenac sodium (Voltaren) 1 % gel gel APPLY 4 INCHES OF MEDICATION TO EACH KNEE EVERY 4 HOURS NEEDED 08/23/2023 Active diclofenac sodiu m 1 % gel Active Diclofenac Sodiu m 1 % GEL APPLY SPARINGLY TO AFFECTED AREA(S) ONCE DAILY Quantity: 0 Refills: 0 Ordered: 27-Apr-2023 DO Active Comment on above: APPLY 4 INCHES OF ME DICATION TO EACH KNEE EVERY 4 HOURS NEEDED diphenhydrAMINE hydrochloride 50 mg oral tablet (19 sources) Histamine-1 Receptor Antagonist Start: 06-14-2025 diphenhydrAMINE (BENADryl) 50 mg tablet Indications: Aortoiliac occlusive disease (Multi) Take 1 tablet the morning of the CTA 1 tablet 06/14/2025 Active Start: 04-06-2025 Banophen 25 MG capsule TAKE 2 CAPSULES THE MORNING OF THE CTA 04/06/2025 Active Start: 04-06-2025 diphenhydrAMIN E (BENADryl) 50 mg tablet Indications: Aortoiliac occlusive disease (Multi) Take 1 tablet the morning of the CTA 1 tablet 04/06/2025 Active doxycycline monohydrate 100 mg oral tablet (11 sources) Tetracycline-class Drug Start: 07-06-2025 End: 07-16-2025 doxycycline (Adoxa) 100 mg tablet Take 1 tablet (100 mg) by mouth. 07/06/2025 07/16/2025 Active Start: 07-01-2023 End: 07-11-2023 take 1 capsule by mouth twice daily doxycycline hyclate 100 mg Cap 100 mg = 1 cap(s), Oral, BID, X 10 day(s), # 20 cap(s), Refills(s) 0, Pharmacy: [facility]/pharmacy #[id number], 167, cm, 07/01/23 11:45:00 EDT, Height/Length Dosing, 88, kg, 07/01/23 11:45:00 EDT, Weight Dosing Start Date: 07/01/23 Stop Date: 07/11/23 Status: Ordered Start: 07-21-2017 Doxycycline Hy clate 100 MG Oral Capsule Quantity: 20 Refills: 0 Start : 21-Jul-2017 Active dulaglutide (Trulicity) 3 mg/0.5 mL injection (20 sources) Start: 02-19-2025 dulaglutide (T rulicity) 3 mg/0.5 mL injection Indications: Diabetes mellitus type II, non insulin dependent (Multi) , Class 2 severe obesity with serious comorbidity and body mass index (BMI) of 35.0 to 35.9 in adult, unspecified obesity type Inject 3 mg under the skin 1 (one) time per week. 2 mL 3 02/19/2025 Active Start: 12-28-2024 dulaglutide (T rulicity) 3 mg/0.5 mL injection Indications: Diabetes mellitus type II, non insulin dependent (Multi) , Class 2 severe obesity with serious comorbidity and body mass index (BMI) of 35.0 to 35.9 in adult, unspecified obesity type Inject 3 mg under the skin 1 (one) time per week. 2 mL 3 12/28/2024 Active ertugliflozin 15 mg oral tab let (20 sources) Start: 07-13-2019 Steglatro 15 m g oral tablet Refills(s) 0 Start Date: 04/04/20 Status: Ordered Repeat number: 1 Start: 12-01-2018 ertugliflozin 5 mg tab Indications: DM (diabetes mellitus), type 2, uncontrolled w/neurologic complication , DM (diabetes mellitus), type 2 with peripheral vascular complications (HCC) Take 5 mg by mouth once daily. 90 tablet 3 12/01/2018 Active take 3 tablets by [facility] every twenty-four hours ertugliflozin (STEGLATRO) 5 mg tablet 15 mg q 24 HR. Active Comment on above: Take 5 mg by mouth o nce daily. 15 mg q 24 HR. 0.65 ml exenatide 3.08 mg/ml pen injector (12 sources) GLP-1 Receptor Agonist inject 2 mg by subcutaneous injection every week exenatide microspheres (BYDUREON) 2 mg/0.65 mL injection Inject 2 mg subcutaneously once each week. Active Comment on above: Inject 2 mg subcutan eously once each week. ezetimibe 10 mg oral tablet (20 sources) Dietary Cholesterol Absorption Inhibitor Start: 024 End: 025 take 1 tablet by mouth once daily ezetimibe (Zetia) 10 mg tablet Indications: Hyperlipidemia LDL goal , Atherosclerosis of [place] artery of both lower extremities with intermittent claudication TAKE 1 TABLET BY MOUTH EVERY DAY 90 tablet 3 06/22/2025 Active fluconazole 100 mg oral tablet (13 sources) Azole Antifungal Start: 023 fluconazole (Diflucan) 100 MG tablet 01/13/2023 Active gabapentin 600 mg oral tablet (20 sources) Anti-epileptic Agent Start: 025 take 2 tablets by mouth three times daily gabapentin (Neurontin) 600 mg tablet Take 2 tablets (1,200 mg) by mouth 3 times a day. 02/07/2025 Active Start: 10-31-2018 gabapentin (NE URONTIN) 800 mg tablet Take 1,200 mg by mouth three times a day. 2 10/31/2018 Active Start: 10-31-2018 gabapentin (NE URONTIN) 800 mg tablet Take 900 mg by mouth four times daily. 2 10/31/2018 Active Start: 04-29-2017 take 1 tablet by iraj th four times daily gabapentin 800 mg Tab 800 mg = 1 tab(s), Oral, QID, Refills(s) 0, Neuropathy Start Date: 04/29/17 Status: Ordered Repeat number: 1 gabapentin (Neur ontin) 600 MG tablet every 8 (eight) hours Active End: 01-18-2025 take 2 tablets by mouth three times daily gabapentin (Neurontin) 600 mg tablet Take 2 tablets (1,200 mg) by mouth 3 times a day. 01/18/2025 Discontinued (Therapy completed) take 1 tablet by iraj th three times daily gabapentin (Neurontin) 600 mg tablet Take 1 tablet (600 mg) by mouth 3 times a day. Active gabapentin (Neur ontin) 600 mg tablet Take 2 tablets (1,200 mg) by mouth. 0 Active take 2 capsules by [facility] three times daily Gabapentin 300 MG Oral Capsule TAKE 2 CAPSULES 3 TIMES DAILY. Quantity: 0 Refills: 0 Ordered: 27-Apr-2023 DO Active Comment on above: Take 900 mg by mouth four times daily. Take 1,200 mg by iraj th three times a day. ibuprofen 400 mg oral tablet (20 sources) Nonsteroidal Anti-inflammatory Drug Start: 05-02-2024 take 1 tablet by mouth every eight hours as needed 800 mg, oral, Every 8 hours PRN, pain mild (1-3), first line, pain moderate (4-6), first line, pain severe (7-10), first line, Starting on Wed05/02/24 at 1714, May administer with food to reduce GI upset., If ordered PRN for pain, nurse is permitted to administer this medication for higher pain scores based on patient preference? Yes Start: 05-02-2024 take 1 tablet by iraj th every eight hours for pain ibuprofen 800 mg tablet Indications: Postoperative pain Take 1 tablet (800 mg) by mouth every 8 hours if needed for mild pain (1 - 3) or moderate pain (4 - 6). 30 tablet 05/02/2024 Active Start: 08-01-2018 take 1 tablet by iraj th every six hours as needed for pain ibuprofen 600 mg Tab 600 mg = 1 tab(s), Oral, q6hr, PRN as needed for pain, # 20 tab(s), Refills(s) 0, Pharmacy: [facility]/pharmacy #[id number] Start Date: 08/01/18 Status: Ordered Quantity: 20.0 Unit: tab(s) Repeat number: 1 Start: 12-09-2016 take 1 tablet by iraj th every six hours as needed for pain Ibuprofen 800 MG Oral Tablet TAKE 1 TABLET BY MOUTH EVERY 6 HOURS NEEDED FOR PAIN OR FEVER. 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 Active insulin glargine (LANTUS SOLOSTAR, BASAGLAR KWIKPEN) 100 unit/mL (3 mL) Inject 80 Units subcutaneously daily at bedtime. 0 Active Comment on above: Inject 80 Units subc utaneously daily at bedtime. 3 ml insulin isophane, human 70 unt/ml / insulin, regular, human 30 unt/ml pen injector (20 sources) Insulin Start: 04-04-2020 NovoLIN 70/30 FlexPen subcutaneous suspension Refills(s) 0 Start Date: 04/04/20 Status: Ordered Repeat number: 1 End: 05-30-2025 inject 100 [IU] by subcutaneous injection at mealtime insulin NPH-insulin regular (HumuLIN 70/30 KWIKPEN) (70-30) 100 UNIT/ML injection Inject under the skin in the morning. Inject with meals. 05/30/2025 Discontinued (Therapy completed) insulin NPH-insu jakob regular (HumuLIN 70/30 KWIKPEN) (70-30) 100 UNIT/ML injection Inject under the skin Daily with meals. Active insulin NPH-insu jakob regular (HumuLIN 70/30) pen Inject subcutaneously daily with breakfast. Active insulin NPH-insu jakob regular (HumuLIN 70/30) pen Inject subcutaneously daily with breakfast. 0 Active insulin 70/30 GUN NUMBER H/regular units/mL (NOVOLIN 70-30 FLEXPEN U-100) 100 unit/mL (70-30) inpn Inject subcutaneously daily with breakfast. 0 Active Comment on above: Inject subcutaneousl y daily with breakfast. 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 Inject with meals. 27 mL 1 03/15/2025 09/11/2025 Active Start: 04-08-2020 Insulin Lispro (1 Unit Dial) 100 UNIT/ML Subcutaneous Solution Pen-injector INJECT PER SLIDING SCALE (1U:50MG/DL GLUCOSE>150)AFTER MEALS & AT BEDTIME, EXPECT UP TO 15U DAILY Quantity: 1 Refills: 6 Ordered: 06-Aug-2021 Oliver Auguste PA-C Start : 08-Apr-2020 Active iv contrast (will be provided with radiology test) (1 source) Start: 02-16-2025 End: 02-17-2025 inject 1 dose intravenously once iv contrast (will be provided with radiology test) CTA CHEST (NONGATED) ABD/PEL WO/W IVCON - No IV access, insert saline lock prior to the sedation, infusion, injection for imaging exam. Discontinue saline lock post exam. If Pt. has a central line or IVAD, may access for administration according to line specific nursing protocol. Once exam is complete flush line and de-access according to line specific nursing protocol in the CT contrast administration guidelines link. 1 each 02/16/2025 02/17/2025 Active lamoTRIgine 25 mg oral tablet (20 sources) Mood Stabilizer, Anti-epilept ic Agent Start: 08-02-2023 lamoTRIgine (LaMICtal) 25 MG tablet TAKE 1 TAB DAILY X 2 WEEKS, THEN 2 TABS DAILY X 2 WEEKS 08/02/2023 Active Start: 08-02-2023 lamoTRIgine (L AMICTAL) 25 mg tablet Take 200 mg by mouth once daily. 08/02/2023 Active take 1 tablet by iraj th once daily lamoTRIgine (LaMICtal) 200 mg tablet Take 1 tablet (200 mg) by mouth once daily. Active End: 01-18-2025 take 8 tablets by mouth once daily lamoTRIgine (LaMICtal) 25 mg tablet Take 8 tablets (200 mg) by mouth once daily. 01/18/2025 Discontinued (Therapy completed) End: 11-24-2023 take 2 tablets by mouth once daily lamoTRIgine (LaMICtal) 25 mg tablet Take 2 tablets (50 mg) by mouth once daily. Active End: 11-24-2023 lamoTRIgine (LaMICtal) 100 m g tablet Take by mouth. 0 11/24/2023 Discontinued (Med List Cleanup) take 1 tablet by iraj th every twenty-four hours LaMICtal XR 50 MG 1 tablet Orally Once a day Active Comment on above: TAKE 1 TAB DAILY X 2 WEEKS, THEN 2 TABS DAILY X 2 WEEKS Take 200 mg by mouth once daily. lidocaine 0.05 mg/mg medicated patch (6 sources) Antiarrhythmic, Amide Local Anesthetic Start: 10-04-2024 lidocaine Top 5% film Patch 1 patch(es), Topical, Daily, 7 patch(es), Refill(s) 0, apply 12 hours on and 12 hours off daily, [facility]/pharmacy #[id number], 165.1, cm, 10/04/24 9:27:00 EST, Height/Length Dosing, 100, kg, 10/04/24 9:27:00 EST, Weight Dosing Start Date: 10/04/24 Status: Ordered Quantity: 7.0 Unit: patch(es) Repeat number: 1 Start: 11-25-2023 End: 11-25-2023 lidocaine (Xylocaine) 20 mg/ mL (2 %) injection 2 mL lisinopril 5 mg oral tablet (20 sources) Angiotensin Converting Enzyme Inhibitor Start: 09-14-2019 End: 08-09-2024 take 1 tablet by mouth once daily lisinopril 5 mg Tab 5 mg = 1 tab(s), Oral, Daily, # 30 tab(s), Refills(s) 0 Start Date: 04/04/20 Status: Ordered Quantity: 30.0 Unit: tab(s) Repeat number: 1 take 5 mg by mouth once daily li sinopril (ZESTRIL, PRINIVIL) 10 mg tablet Take 5 mg by mouth once daily. Active Comment on above: Take 5 mg by mouth o nce daily. meclizine hydrochloride 25 mg oral tablet (12 sources) Antiemetic Start: take 1 tablet by mouth every six hours as needed meclizine (Antivert) 25 MG tablet Take 25 mg by mouth every 6 (six) hours if needed 03/15/2025 Active End: 02-28-2025 take 1 tablet by mouth three times daily as needed for dizziness meclizine (Antivert) 25 mg tablet Take 1 tablet (25 mg) by mouth 3 times a day as needed for dizziness. 02/28/2025 Discontinued (Med List Cleanup) metoprolol tartrate 25 mg oral tablet (20 sources) beta-Adrenergic Oswald Start: 12-21-2024 End: 12-21-2025 take 1 tablet by mouth twice daily metoprolol tartrate (Lopressor) 25 mg tablet Indications: Wide-complex tachycardia Take 1 tablet (25 mg) by mouth 2 times a day. 180 tablet 3 12/21/2024 12/21/2025 Active Start: 11-24-2023 End: 11-23-2024 take 1 tablet by mouth twice daily metoprolol tartrate (Lopressor) 25 mg tablet Indications: Wide-complex tachycardia Take 1 tablet (25 mg) by mouth 2 times a day. 180 tablet 3 11/24/2023 11/23/2024 Active miFEPRIStone 300 mg oral tablet (20 sources) Progestin Antagonist Start: 04-04-2020 take 1 tablet by mouth once daily Korlym 300 mg oral tablet 300 mg = 1 tab(s), Oral, Daily, # 30 tab(s), Refills(s) 0 Start Date: 04/04/20 Status: Ordered Quantity: 30.0 Unit: tab(s) Repeat number: 1 Start: 07-13-2019 take 2 tablets by mo uth once daily Korlym 300 MG Oral Tablet Take 2 tablets once daily Quantity: 60 Refills: 3 Ordered: 22-Oct-2020 Olvier Auguste PA-C Start : 23-Jul-2020 Active Start: 07-13-2019 take 3 tablets by mo uth once daily Korlym 300 MG Oral Tablet TAKE 3 TABLETS ONCE DAILY Quantity: 90 Refills: 3 Oliver Auguste PA-C Start : 13-Jul-2019 Active take 600 mg by mouth once daily mifepristone (KORLYM ORAL) Take 600 mg by mouth once daily. Active take 600 mg by mouth once daily mifepristone (KORLYM ORAL) Take 600 mg by mouth once daily. 0 Active Comment on above: Take 600 mg by mouth once daily. montelukast 10 mg oral tablet (20 sources) Leukotriene Receptor Antagonist Start: 0 take 1 tablet by mouth once daily at bedtime montelukast (Singulair) 10 mg tablet Take 1 tablet (10 mg) by mouth once daily at bedtime. 05/15/2020 Active montelukast (Sin gulair) 4 MG chewable tablet Active Comment on above: Take 10 mg by mouth daily at bedtime. naloxone hydrochloride 40 mg/ml nasal spray (13 sources) Opioid Antagonist Start: 01-12-20 23 naloxone (Narcan) 4 mg/0.1 mL nasal spray 01/11/2023 Active naproxen 500 mg oral tablet (20 sources) Nonsteroidal Anti-inflammatory Drug Start: 03-15-20 End: 08-05-20 24 take 1 tablet by mouth twice daily as needed for pain Naprosyn 500 mg Tab 500 mg = 1 tab(s), Oral, BID, PRN for pain, # 20 tab(s), Refills(s) 0, Pharmacy: [facility]/pharmacy #[id number], 165.1, cm, 08/02/23 21:59:00 EDT, Height/Length Dosing, 95, kg, 08/02/23 21:59:00 EDT, Weight Dosing Start Date: 08/02/23 Status: Ordered Quantity: 20.0 Unit: tab(s) Repeat number: 1 nitroglycerin 0.4 mg sublingual tablet (20 sources) Nitrate Vasodilator Start: 02-15-20 End: 02-15-20 26 nitroglycerin (Nitrostat) 0.4 mg SL tablet Indications: Coronary artery disease involving [place] coronary artery of [place] heart, unspecified whether angina present , Chest pain, unspecified type Place 1 tablet (0.4 mg) under the tongue every 5 minutes if needed for chest pain. May repeat dose every 5 minutes for up to 3 doses total. 25 tablet 5 02/14/2025 02/14/2026 Active Start: 01-14-2024 End: 03-08-2024 nitroglycerin (NitrolinguaL) 400 mcg/spray spray 2 spray Start: 01-14-2024 End: 01-14-2024 nitroglycerin (NitrolinguaL) 400 mcg/spray spray 2 spray nitroglycerin (N itrostat) 0.[address] 1 TABLET UNDER TONGUE EVERY 5 MINS, UP TO 3 DOSES NEEDED FOR CHEST PAIN Active NovoLIN 70/30 FlexPen subcutaneous suspension (1 source) Start: 04-04-2020 NovoLIN 70/30 FlexPen subcutaneous suspension Refills(s) 0 Start Date: 04/04/20 Status: Ordered 2 ml ondansetron 2 mg/ml injection (20 sources) Serotonin-3 Receptor Antagonist Start: 12-10-2023 take 4 mg intravenously every eight hours as needed ondansetron (Zofran) injection 4 mg Start: 01-08-2020 take 1 tablet by iraj every eight hours as needed ondansetron (Zofran) 8 mg tablet Take 1 tablet (8 mg) by mouth every 8 hours if needed for nausea. 01/08/2020 Active Start: 01-08-2020 ondansetron (Z OFRAN) 8 mg tablet Take by mouth. 0 01/08/2020 Active Start: 01-08-2020 take 7 tablets by mo [facility] three times daily for nausea Ondansetron HCl - 8 MG Oral Tablet you may take up to 3 times a day for nausea Quantity: 42 Refills: 0 Ordered: 14-Oct-2021 Oliver Auguste PA-C Start : 08-Jan-2020 Active Start: 01-08-2020 Ondansetron HC l - 8 MG Oral Tablet you may take up to 3 times a day for nausea Quantity: 42 Refills: 0 Ordered: 22-Apr-2021 Hina SAUCEDA Oliver Start : 08-Jan-2020 Active ondansetron (Zof ran) 4 MG tablet every 8 (eight) hours Active Zofran 8 MG TABS as needed Quantity: 0 Refills: 0 Ordered: 27-Apr-2023 DO Active Comment on above: Take by mouth. Take 8 mg by mouth e very 8 hours as needed for nausea/vomiting. pantoprazole 40 mg delayed release oral tablet (20 sources) Proton Pump Inhibitor Start: 04-04-2020 take 1 tablet by mouth once daily Protonix 40 mg Tab-DR 40 mg = 1 tab(s), Oral, Daily, # 30 tab(s), Refills(s) 0 Start Date: 04/04/20 Status: Ordered Quantity: 30.0 Unit: tab(s) Repeat number: 1 take 1 tablet by mouth twice clint ly pantoprazole (ProtoNix) 40 mg EC tablet Take 1 tablet (40 mg) by mouth 2 times a day. Active Pantoprazole Sod ium (PROTONIX PO) Active Pantoprazole Sod ium (PROTONIX PO) Protonix Active Comment on above: Take 40 mg by mouth twice daily. perampanel 4 mg oral tablet (20 sources) Noncompetitive AMPA Glutamate Receptor Antagonist Start: 09-18-20 End: 08-09-20 take 1 tablet by mouth once daily at bedtime perampaneL (Fycompa) 4 mg tablet Indications: Partial symptomatic epilepsy with complex partial seizures, intractable, without status epilepticus (Multi) TAKE 1 TABLET BY MOUTH EVERYDAY AT BEDTIME 30 tablet 3 04/25/2024 08/09/2024 Discontinued (Therapy completed) Comment on above: Take 4 mg by mouth d aily at bedtime. perflutren lipid microspheres (Definity) injection 0.5-10 mL of dilution (1 source) Start: 05-02-20 0.5-10 mL of dilution, intravenous, Once in imaging, Starting on Wed05/02/24 at 1217, For 1 dose, Preprocedure, Contrast - for use by imaging provider only. Prior to administration, Definity product must be activated. First, bring vial to room temperature. Then, shake vial for 45 seconds. Do not use if the 45 second activation cycle has not been completed. Following activation, the product will appear as a milky white suspension and may be used immediately. If not used within 5 minutes of activation, re-suspend by inverting and shaking the vial for 10 seconds. Discard unused product. Administration: Dilute 1.3 mL of activated DEFINITY with 8.7 mL of normal saline in a 10 mL syringe. Inject 0.5 mL of diluted DEFINITY when notified the images/film are unclear to enhance view of Left Ventricular borders. Repeat 0.5 mL of DEFINITY until clear images are obtained, not to exceed 10 mLs. Once images are obtained or limit of medication is reached, flush line with 10 mL of Normal Saline. predniSONE 20 mg oral tablet (16 sources) Start: 06-14-20 predniSONE (Deltasone) 20 mg tablet Indications: Aortoiliac occlusive disease (Multi) Take 3 tablets the pm prior to CTA and 3 tablets the morning of the CTA 6 tablet 06/14/2025 Active Start: 04-06-2025 predniSONE (De ltasone) 20 mg tablet Indications: Aortoiliac occlusive disease (Multi) Take 3 tablets the pm prior to CTA and 3 tablets the morning of the CTA 6 tablet 04/06/2025 Active Start: 01-09-2025 End: 01-16-2025 take 3 tablets by mouth once daily predniSONE 20 mg Tab 3, Oral, Daily, X 7 day(s), # 21 tab(s), Refills(s) 0, Pharmacy: [facility]/pharmacy #[id number], 165, cm, 01/09/25 12:41:00 EST, Height/Length Dosing, 98, kg, 01/09/25 12:41:00 EST, Weight Dosing Start Date: 01/09/25 Stop Date: 01/16/25 Status: Ordered Start: 10-04-2024 End: 10-11-2024 take 1 tablet by mouth once daily predniSONE 50 mg Tab 50 mg = 1 tab(s), Oral, Daily, X 7 day(s), # 7 tab(s), Refills(s) 0, Pharmacy: [facility]/pharmacy #[id number], 165.1, cm, 10/04/24 9:27:00 EST, Height/Length Dosing, 100, kg, 10/04/24 9:27:00 EST, Weight Dosing Start Date: 10/04/24 Stop Date: 10/11/24 Status: Ordered Protonix 40 mg Tab-DR (1 source) Start: 04-04-2020 take 1 tablet by mouth once daily Protonix 40 mg Tab-DR 40 mg = 1 tab(s), Oral, Daily, # 30 tab(s), Refills(s) 0 Start Date: 04/04/20 Status: Ordered QUEtiapine 50 mg oral tablet (4 sources) Atypical Antipsychotic Start: 07-05-2025 QUEtiapine (SEROquel) 50 mg tablet Take 2 tablets (100 mg) by mouth. 07/05/2025 Active Spiriva Respimat 28 ACT 2.5 mcg/inh inhalation aerosol (1 source) Start: 04-04-2020 Spiriva Respimat 28 ACT 2.5 mcg/inh inhalation aerosol Refills(s) 0 Start Date: 04/04/20 Status: Ordered spironolactone 50 mg oral tablet (20 sources) Aldosterone Antagonist Start: 12-14-2020 take 2 tablets by mouth twice daily Spironolactone 25 MG Oral Tablet TAKE 2 TABLETS BY MOUTH TWICE A DAY Quantity: 120 Refills: 5 Hina MARTIN-C Oliver Start : 14-Dec-2020 Active Start: 04-04-2020 spironolactone 25 mg Tab Refills(s) 0 Start Date: 04/04/20 Status: Ordered Repeat number: 1 Start: 12-13-2019 End: 02-09-2024 take 1 tablet by mouth in the morning spironolactone (Aldactone) 50 MG tablet Take 50 mg by mouth in the morning and 50 mg before bedtime. 04/07/2023 Active Start: 12-13-2019 take 2 tablets by mo [facility] twice daily Spironolactone 25 MG Oral Tablet Take 2 tablets twice daily. Quantity: 120 Refills: 5 Hina MARTIN-C Oliver Start : 13-Dec-2019 Active spironolactone ( ALDACTONE) 25 mg tablet Take 150 mg by mouth twice daily. Active End: 11-24-2023 take 1 tablet by mouth once daily spironolactone (Aldactone) 50 mg tablet Take 1 tablet (50 mg) by mouth once daily. 0 11/24/2023 Discontinued (Med List Cleanup) Comment on above: Take 150 mg by mouth twice daily. sucralfate 100 mg/ml oral suspension (20 sources) Aluminum Complex Start: 03-06-2025 sucralfate (Carafate) 1 GM/10ML suspension TAKE 2 TEASPOONFUL BY MOUTH 4 TIMES A DAY 03/06/2025 Active take 1 tablet by iraj four times daily before mealtime as needed sucralfate (Carafate) 1 gram tablet Take 1 tablet (1 g) by mouth 4 times a day before meals. As needed Active take 10 mL by mouth four times d aily Carafate 1 GM/10ML Oral Suspension TAKE 10 ML 4 TIMES DAILY Refills: 0 Active Comment on above: Take 1 g by mouth fo ur times daily as needed. 28 actuat tiotropium 0.0025 mg/actuat inhalation spray (20 sources) Anticholinergic Start: 04-04-2020 Spiriva Respimat 28 ACT 2.5 mcg/inh inhalation aerosol Refills(s) 0 Start Date: 04/04/20 Status: Ordered Repeat number: 1 Start: 07-08-2017 take 2 puff(s) by mo uth once daily Spiriva Respimat 2.5 MCG/ACT Inhalation Aerosol Solution INHALE 2 PUFFS BY MOUTH EVERY DAY Quantity: 4 Refills: 0 Ordered: 08-Jul-2017 DO Start : 08-Jul-2017 Active Start: 07-08-2017 take 2 puff(s) by mo uth once daily Spiriva Respimat 2.5 MCG/ACT Inhalation Aerosol Solution INHALE 2 PUFFS BY MOUTH EVERY DAY Quantity: 4 Refills: 0 Start : 08-Jul-2017 Active take 2 puff(s) by in halation once daily tiotropium (SPIRIVA RESPIMAT) 2.5 mcg/actuation inhaler Inhale 2 Puffs as instructed once daily. Active Comment on above: Inhale 2 Puffs as in structed once daily. tiZANidine 2 mg oral tablet (1 source) Central alpha-2 Adrenergic Agonist Start: 4 End: 4 take 1 tablet by mouth every eight hours tiZANidine 2 mg Tab 2 mg = 1 tab(s), Oral, q8hr, X 7 day(s), # 21 tab(s), Refills(s) 0, Pharmacy: [facility]/pharmacy #[id number], 165.1, cm, 07/26/24 16:21:00 EDT, Height/Length Dosing, 92.1, kg, 07/26/24 16:21:00 EDT, Weight Dosing Start Date: 07/26/24 Stop Date: 08/02/24 Status: Ordered topiramate 100 mg oral tablet (20 sources) Start: 5 take 1.5 tablets by mouth twice daily topiramate (Topamax) 100 mg tablet Indications: Partial symptomatic epilepsy with complex partial seizures, intractable, without status epilepticus Take 1.5 tablets (150 mg) by mouth 2 times a day. 90 tablet 6 07/11/2025 Active Start: 09-06-2024 End: 01-18-2025 take 2 tablets by mouth twice daily topiramate (Topamax) 50 mg tablet Indications: Partial symptomatic epilepsy with complex partial seizures, intractable, without status epilepticus (Multi) Take 2 tablets (100 mg) by mouth 2 times a day. 120 tablet 6 09/06/2024 01/18/2025 Discontinued (Reorder) Start: 03-15-2024 End: 09-06-2024 take 1 tablet by mouth twice daily topiramate (Topamax) 50 mg tablet Indications: Partial symptomatic epilepsy with complex partial seizures, intractable, without status epilepticus (Multi) Take 1 tablet (50 mg) by mouth 2 times a day. 60 tablet 6 03/15/2024 09/06/2024 Discontinued (Reorder) Start: 03-22-2023 End: 11-24-2023 take 1 tablet by mouth in the morning topiramate (Topamax) 100 MG tablet Take 100 mg by mouth in the morning. 03/22/2023 Active Start: 05-15-2020 take 1 tablet by iraj th once daily Topiramate 200 MG Oral Tablet TAKE 1 TABLET DAILY. Refills: 0 Start : 15-May-2020 Active Start: 04-04-2020 take 1 tablet by iraj th twice daily Topamax 200 mg Tab 200 mg = 1 tab(s), Oral, BID, # 60 tab(s), Refills(s) 0 Start Date: 04/04/20 Status: Ordered Quantity: 60.0 Unit: tab(s) Repeat number: 1 Start: 10-06-2018 End: 07-11-2025 take 1 tablet by mouth twice daily topiramate (Topamax) 100 mg tablet Indications: Partial symptomatic epilepsy with complex partial seizures, intractable, without status epilepticus Take 1 tablet (100 mg) by mouth 2 times a day. 60 tablet 6 01/18/2025 07/11/2025 Discontinued (Reorder) Start: 10-06-2018 take 2 tablets by mo uth once daily topiramate (TOPAMAX) 100 mg tablet Take 200 mg by mouth once daily. 2 10/06/2018 Active End: 03-15-2024 take 4 tablets by mouth once daily topiramate (Topamax) 25 mg tablet Take 4 tablets (100 mg) by mouth once daily. 03/15/2024 Discontinued (Reorder) take 1 capsule by mo uth every twenty-four hours Topiramate ER 100 MG 1 capsule Orally Once a day Active take 1 tablet by iraj th three times daily topiramate (Topamax) 25 mg tablet Take 1 tablet (25 mg) by mouth 3 times a day. 0 Active Topiragen 25 MG TABS TAKE 3 TABLETS DAILY Quantity: 0 Refills: 0 Ordered: 27-Apr-2023 DO Active take 1 capsule by mo uth once daily Topiramate ER 100 MG 1 capsule Orally Once a day Active Comment on above: Take 200 mg by mouth once daily. Take 100 mg by mouth twice daily. traMADol hydrochloride 50 mg oral tablet (20 sources) Opioid Agonist Start: 10-04-2024 End: 10-07-2024 take 1 tablet by mouth every six hours as needed for pain traMADOL 50 mg Tab 50 mg = 1 tab(s), Oral, q6hr, PRN for pain, X 3 day(s), # 12 tab(s), Refills(s) 0, Pharmacy: [facility]/pharmacy #[id number], 165.1, cm, 10/04/24 9:27:00 EST, Height/Length Dosing, 100, kg, 10/04/24 9:27:00 EST, Weight Dosing Start Date: 10/04/24 Stop Date: 10/07/24 Status: Ordered Start: 05-02-2024 End: 05-02-2024 traMADol (Ultram) 50 mg tabl et Indications: Postoperative pain Take 1 tablet (50 mg) by mouth every 8 hours if needed for moderate pain (4 - 6) or severe pain (7 - 10). If no relief from tylenol then alternate tylenol with Tramadol 10 tablet 05/02/2024 05/02/2024 Discontinued (Stop Taking at Discharge) Start: 10-14-2021 End: 11-24-2023 take 1 tablet by mouth three times daily traMADol (Ultram) 50 mg tablet Take 1 tablet (50 mg) by mouth 3 times a day. 0 10/14/2021 11/24/2023 Discontinued (Med List Cleanup) take 1 tablet by iraj th three times daily as needed traMADol HCl - 50 MG Oral Tablet TAKE 1 TABLET 3 TIMES DAILY NEEDED. Quantity: 0 Refills: 0 Ordered: 13-Jul-2019 DO Active Comment on above: Take 50 mg by mouth every 6 hours as needed. True Metrix Glucose Meter misc (4 sources) Start: 06-28-2025 True Metrix Glucose Meter misc USE TO TEST SUGARS DAILY 06/28/2025 Active 30 actuat umeclidinium 0.0625 mg/actuat / vilanterol 0.025 mg/actuat dry powder inhaler (20 sources) Anticholinergic, beta2-Adrenergic Agonist Start: 02-06-2023 Anoro Ellipta 62.5-25 MCG/ACT aerosol powder 02/06/2023 Active Start: 06-12-2021 Anoro Ellipta 62.5-25 MCG/ACT aerosol powder INHALE 1 PUFF EVERY DAY ONCE A DAY 02/06/2023 Active Start: 06-12-2021 umeclidinium-v ilanterol (ANORO ELLIPTA) 62.5-25 mcg/actuation inhaler Inhale as instructed q 24 HR. 06/12/2021 Active Start: 06-12-2021 take 1 puff(s) by in halation once daily Anoro Ellipta 62.5-25 MCG/ACT 1 puff Inhalation Once a day for 90 days Jun, Active Start: 06-12-2021 take 1 puff(s) by in halation once daily umeclidinium-vilanteroL (Anoro Ellipta) 62.5-25 mcg/actuation blister with device Inhale 1 puff once daily. Active Anoro Ellipta 62 .5-25 MCG/INH Inhalation Aerosol Powder Breath Activated Refills: 0 Active Comment on above: Inhale as instructed q 24 HR. valACYclovir 500 mg oral tablet (20 sources) Herpesvirus Nucleoside Analog DNA Polymerase Inhibitor, Herpes Simplex Virus Nucleoside Analog DNA Polymerase Inhibitor, Herpes Zoster Virus Nucleoside Analog DNA Polymerase Inhibitor Start: 7 take 500 mg by mouth once daily Valtrex 500 mg, Oral, Daily, Refills(s) 0, Other (see comment) Start Date: 05/05/17 Status: Ordered Repeat number: 1 Comment on above: Take by mouth. Take 500 mg by mouth once daily. vitamin b12 1 mg/ml injectable solution (19 sources) Vitamin B12 Start: 3 cyanocobalamin (Vitamin B-12) 1000 MCG/ML injection 03/17/2023 Active Start: 02-09-2023 inject 1 dose by int ramuscular injection every other week cyanocobalamin (Vitamin B-12) 1000 MCG/ML injection INJECT 1 VIAL INTRAMUSCULARLY ONCE EVERY 2 WEEKS FOR 2 MONTHS 03/17/2023 Active Vitamin D (Ergocalciferol) 50296 UNIT (3 sources) take 1 capsule by mouth every week Vitamin D (Ergocalciferol) 12318 UNIT 1 capsule Orally once a week Active Vitamin D2 2000 intl units o ral capsule (20 sources) Start: 04-04-2020 Vitamin D2 200 0 intl units oral capsule Refills(s) 0 Start Date: 04/04/20 Status: Ordered Repeat number: 1 Start: 04-04-2020 Vitamin D2 200 0 intl units oral capsule Refills(s) 0 Start Date: 04/04/20 Status: Ordered Completed/Discontinued Medications Medication Drug Class(es) Dates Sig (Normalized) Sig (Original) Anoro Ellipta AEPB (1 source) Anoro Ellipta AE PB as directed Quantity: 0 Refills: 0 Ordered: 27-Apr-2023 DO Active azithromycin 250 mg oral tablet (2 sources) Macrolide Antimicrobial Start: 01-09-2025 take 1 tablet by mouth once daily azithromycin 250 mg Tab 250 mg, Oral, As Directed, Take two tabs by mouth on day one, then one tab daily, # 6 tab(s), Refills(s) 0, Pharmacy: [facility]/pharmacy #[id number], 165, cm, 01/09/25 12:41:00 EST, Height/Length Dosing, 98, kg, 01/09/25 12:41:00 EST, Weight Dosing Start Date: 01/09/25 Status: Ordered Quantity: 6.0 Unit: tab(s) Repeat number: 1 betamethasone 3 mg/ml / betamethasone acetate 3 mg/ml injectable suspension (8 sources) Corticosteroid Start: 05-31-2025 End: 05-31-2025 betamethasone acetate-betamethas one sodium phosphate (Celestone) injection 6 mg Start: 05-31-2025 End: 05-31-2025 6 mg, Intra-articular, Once PRN Procedure, Starting on Louise 05/31/25 at 1626, For 1 dose betamethasone 0.5 mg/ml / clotrimazole 10 mg/ml topical cream (16 sources) Azole Antifungal, Corticosteroid Start: 10-08-2023 End: 11-24-2023 clotrimazole-betamethasone (Lotrisone) cream Start: 03-29-2023 clotrimazole-b etamethasone (Lotrisone) cream Apply topically in the morning and before bedtime. to affected area. 03/29/2023 Active Start: 03-29-2023 clotrimazole-b etamethasone (Lotrisone) cream Apply topically 2 (two) times a day. to affected area 03/29/2023 Active ceFAZolin 1000 mg injection (2 sources) Cephalosporin Antibacterial Start: 05-02-2024 End: 05-02-2024 1 g, intravenous, at 100 mL/hr, Administer over 30 Minutes, Once, On e 05/02/24 at 1245, For 1 dose, Preprocedure, Administer within 60 minutes prior to incision. premix bag, Dosing of this medication varies based on severity of illness. Does this patient have sepsis or concern for sepsis (probable or documented infection plus systemic manifestations of infection)? No, Suspected Indication (Select all that apply): Surgical Prophylaxis, Indications: Surgical Prophylaxis Start: 12-10-2023 End: 12-10-2023 ceFAZolin (Ancef) 2 g IV in dextrose 5% 50 mL chlorhexidine gluconate 40 mg/ml medicated liquid soap (4 sources) Start: 05-02-2024 End: 05-02-2024 apply 1 dose topically once Topical, Once, On Wed05/02/24 at 1245, For 1 dose, Preprocedure, For pre-op skin preparation Start: 11-20-2021 Hibiclens 4 % External Liquid use as a preoperative shower Quantity: 1 Refills: 0 Ordered: 20-Nov-2021 Giovanna Sousa Start : 20-Nov-2021 Active Clotrimazole CREA (1 source) Clotrimazole CRE A as needed Quantity: 0 Refills: 0 Ordered: 27-Apr-2023 DO Active docusate sodium 100 mg oral capsule (8 sources) Start: 05-05-20 take 1 capsule by mouth twice daily as needed for constipation Docusate Sodium 100 MG Oral Capsule TAKE ONE CAPSULE BY MOUTH TWICE A DAY NEEDED FOR CONSTIPATION Quantity: 60 Refills: 0 Start : 05-May-2017 Active 0.5 ml dulaglutide 1.5 mg/ml auto-injector (20 sources) GLP-1 Receptor Agonist Start: 02-08-20 End: 02-08-20 inject 0.75 mg by subcutaneous injection every week dulaglutide (Trulicity) 0.75 mg/0.5 mL pen injector Indications: Diabetes mellitus type II, non insulin dependent (Multi) Inject 0.75 mg under the skin 1 (one) time per week. 12 each 3 02/08/2024 12/28/2024 Discontinued (Therapy completed) Start: 10-14-2021 End: 02-08-2024 Trulicity 1.5 MG/0.5ML solut ion pen-injector 07/08/2022 Active Start: 10-14-2021 inject 0.75 mg by bhandari bcutaneous injection every week Trulicity 0.75 MG/0.5ML Subcutaneous Solution Pen-injector inject 0.75mg dose once weekly Quantity: 1 Refills: 6 Ordered: 14-Oct-2021 Oliver Auguste PA-C Start : 14-Oct-2021 Active Comment on above: INJECT 1.5MG ONCE WE EKLY ON THE SAME DAY EACH WEEK empagliflozin 25 mg oral tablet (1 source) Sodium-Glucose Cotransporter 2 Inhibitor Start: 020 take 1 tablet by mouth once daily in the morning Jardiance 25 MG Oral Tablet TAKE 1 TABLET BY MOUTH ONCE DAILY IN THE MORNING Quantity: 90 Refills: 3 Oliver Auguste PA-C Start : 20-May-2020 Active ergocalciferol 0.05 mg oral capsule (20 sources) Provitamin D2 Compound Start: 024 End: 025 take 1 capsule by mouth once daily ergocalciferol (Vitamin D-2) 50 MCG (2000 UT) capsule capsule Indications: Vitamin D deficiency Take 1 capsule (50 mcg) by mouth once daily. 90 capsule 3 07/13/2024 02/28/2025 Discontinued (Med List Cleanup) Start: 04-04-2020 Vitamin D2 200 0 intl units oral capsule Refills(s) 0 Start Date: 04/04/20 Status: Ordered Start: 08-01-2019 End: 08-09-2024 take 1 capsule by mouth every week ergocalciferol (Vitamin D-2) 1.25 MG (92904 UT) capsule Indications: Vitamin D deficiency TAKE 1 CAPSULE BY MOUTH ONE TIME PER WEEK 4 capsule 4 10/26/2023 Active ergocalciferol ( Vitamin D2) 1.25 MG (05035 UT) capsule Active Comment on above: Take 50,000 Units by mouth one time a week. fenofibrate 145 mg oral tablet (20 sources) Peroxisome Proliferator Receptor alpha Agonist Start: 03-08-2021 Fenofibrate 145 MG Oral Tablet Quantity: 30 Refills: 0 Ordered: 11-Mar-2021 DO Start : 08-Mar-2021 Active Start: 09-14-2017 End: 11-24-2023 take 1 tablet by mouth once daily fenofibrate 145 mg Tab 145 mg = 1 tab(s), Oral, Daily, # 30 tab(s), Refills(s) 0 Start Date: 04/04/20 Status: Ordered Quantity: 30.0 Unit: tab(s) Repeat number: 1 Start: 09-14-2017 take 1 tablet by iraj th once daily Fenofibrate 160 MG Oral Tablet TAKE 1 TABLET DAILY. Quantity: 90 Refills: 3 Ordered: 22-Apr-2021 Oliver Auguste PA-C Start : 14-Sep-2017 Active Comment on above: Take 145 mg by mouth once daily. 14 actuat fluticasone furoate 0.1 mg/actuat dry powder inhaler (8 sources) Corticosteroid Arnuity Ellipta 100 MCG/ACT Inhalation Aerosol Powder Breath Activated Refills: 0 Active 30 actuat fluticasone furoate 0.2 mg/actuat / vilanterol 0.025 mg/actuat dry powder inhaler (8 sources) Corticosteroid, beta2-Adrenergic Agonist Start: 017 take 1 puff(s) by mouth once daily Breo Ellipta 200-25 MCG/INH Inhalation Aerosol Powder Breath Activated INHALE 1 PUFF BY MOUTH EVERY DAY Quantity: 60 Refills: 0 Start : 08-Jul-2017 Active FreeStyle Fyffe Lite w/Device Kit (13 sources) Start: 017 FreeStyle Fyffe Lite w/Device Kit USE DIRECTED Quantity: 1 Refills: 0 Start : 09-Mar-2017 Active insulin lispro (HumaLOG) 100 unit/mL injection (6 sources) Start: 023 End: 024 inject 1 [IU] by subcutaneous injection three times daily at mealtime insulin lispro (HumaLOG) 100 unit/mL injection Indications: Diabetes mellitus type II, non insulin dependent (CMS/HCC) Inject 1 Units under the skin 3 times a day with meals. Sliding scale 3 mL 11 09/07/2023 11/24/2023 Discontinued (Med List Cleanup) Start: 09-07-2023 inject 1 [IU] by sub cutaneous injection three times daily at mealtime insulin lispro (HumaLOG) 100 unit/mL injection Indications: Diabetes mellitus type II, non insulin dependent (CMS/HCC) Inject 1 Units under the skin 3 times a day with meals. Sliding scale 3 mL 11 09/07/2023 Active Start: 04-08-2020 End: 09-07-2023 inject 1 [IU] by subcutaneous injection three times daily at mealtime insulin lispro (HumaLOG) 100 unit/mL injection Inject 1 Units under the skin 3 times a day with meals. Sliding scale 0 04/08/2020 09/07/2023 Discontinued (Reorder) insulin, aspart, human 100 unt/ml injectable solution (20 sources) Insulin Analog Start: 05-15-2020 NovoLOG 100 UN IT/ML Subcutaneous Solution INJECT SUBCUTANEOUSLY DIRECTED. per sliding scale Quantity: 1 Refills: 3 Start : 15-May-2020 Active 10 ML Vial Start: 07-14-2019 NovoLOG FlexPe n 100 UNIT/ML Subcutaneous Solution Pen-injector Inject as per sliding scale (1U:50mg/dL for glucose >150) AC HS, expect up to 15U total daily Quantity: 1 Refills: 3 Oliver Auguste PA-C Start : 14-Jul-2019 Active 5 x 3 ML Pen insulin aspart ( NovoLOG) 100 UNIT/ML pen Inject 30 Units under the skin in the morning and 30 Units at noon and 30 Units in the evening. Inject with meals. Active inject 1-3 [IU] by s ubcutaneous injection once daily before mealtime insulin aspart U-100 (NOVOLOG) 100 unit/mL (3 mL) Inject 30 Units subcutaneously three times daily before meals. Taking 1-3 units daily Active Comment on above: Inject 30 Units subc utaneously three times daily before meals. Taking 1-3 units daily iohexol (OMNIPaque) 350 mg iodine/mL solution 80 mL (2 sources) Start: 01-14-20 End: 01-14-20 iohexol (OMNIPaque) 350 mg iodine/mL solution 80 mL lubiprostone 0.024 mg oral capsule (20 sources) Chloride Channel Activator Start: 05-15-20 End: 02-15-20 take 1 capsule by mouth twice daily at mealtime Amitiza 24 MCG Oral Capsule TAKE 1 CAPSULE TWICE DAILY WITH FOOD. Quantity: 0 Refills: 0 Ordered: 15-May-2020 DO Start : 15-May-2020 Active Comment on above: Take 24 mcg by mouth twice daily as needed. metFORMIN hydrochloride 1000 mg oral tablet (8 sources) Biguanide Start: 07-27-20 16 take 1 tablet by mouth twice daily at mealtime metFORMIN HCl - 1000 MG Oral Tablet TAKE 1 TABLET BY MOUTH TWICE A DAY WITH MEALS Quantity: 60 Refills: 0 Start : 27-Jul-2016 Active miSOPROStol 0.2 mg oral tablet (8 sources) Prostaglandin E1 Analog Start: 12-16-19 17 take 1 tablet by mouth once miSOPROStol 200 MCG Oral Tablet INSERT 1 TABLET VAGINALLY ONCE Quantity: 1 Refills: 0 Start : 16-Dec-2016 Active mupirocin 0.02 mg/mg topical ointment (20 sources) RNA Synthetase Inhibitor Antibacterial Start: 05-02-20 End: 05-02-20 1 Application, Topical, Once, On Wed05/02/24 at 1245, For 1 dose, Preprocedure, Apply topically to both nares prior to procedure. Do not initiate until staph screening obtained first. Start: 11-20-2021 Mupirocin 2 % External Ointment use intra nasally 3 days before surgery twice daily Quantity: 1 Refills: 0 Ordered: 20-Nov-2021 Giovanna Sousa Start : 20-Nov-2021 Active Start: 06-01-2018 mupirocin (Kasia troban) 2 % ointment Apply topically 07/01/2023 Active Start: 06-01-2018 mupirocin Top 2% Oint 1 tramaine, Topical, TID, 15 gram, Refill(s) 0 Start Date: 06/01/18 Status: Ordered 24 hr nicotine 0.875 mg/hr transdermal system (16 sources) Cholinergic Nicotinic Agonist Start: 09-14-2017 Nicotine Step 1 21 MG/24HR Transdermal Patch 24 Hour Quantity: 28 Refills: 0 Start : 14-Sep-2017 Active Start: 06-08-2017 apply 1 dose transde rmal route once daily [facility] Nicotine 14 MG/24HR Transdermal Patch 24 Hour APPLY 1 PATCH EVERY DAY Quantity: 28 Refills: 0 Start : 08-Jun-2017 Active pioglitazone 15 mg oral tablet (20 sources) Peroxisome Proliferator Receptor alpha Agonist, Peroxisome Proliferator Receptor gamma Agonist, Thiazolidinedione Start: 07-13-2019 take 1 tablet by mouth once daily Pioglitazone HCl - 15 MG Oral Tablet TAKE 1 TABLET ONCE DAILY. Quantity: 90 Refills: 3 Ordered: 20-Dec-2020 Oliver Auguste PA-C Start : 20-Dec-2020 Active Comment on above: Take 15 mg by mouth once daily. potassium chloride 20 meq extended release oral tablet (2 sources) Start: 01-08-2020 take 2 tablets by mouth three times daily Potassium Chloride ER 20 MEQ Oral Tablet Extended Release please take 2 tablets three times a day Quantity: 180 Refills: 1 Oliver Auguste PA-C Start : 08-Jan-2020 Active regadenoson (Lexiscan) injection 0.4 mg (1 source) Start: 04-27-2025 End: 04-27-2025 0.4 mg, intravenous, Once, On Wed04/27/25 at 1130, For 1 dose 1000 ml sodium chloride 9 mg/ml injection (3 sources) Start: 05-02-2024 End: 05-02-2024 take 10 mL intravenously every hour 10 mL/hr, intravenous, Continuous, Starting on Wed05/02/24 at 1245, Preprocedure Start: 05-02-2024 End: 05-02-2024 take 20 mL intravenously every hour 20 mL/hr, intravenous, Continuous, Starting on Wed05/02/24 at 1245, Preprocedure Start: 12-10-2023 sodium chlorid e 0.9% infusion sulfamethoxazole 800 mg / trimethoprim 160 mg oral tablet (13 sources) Dihydrofolate Reductase Inhibitor Antibacterial, Sulfonamide Antimicrobial Start: 04-09-2017 take 1 tablet by mouth twice daily Sulfamethoxazole-Trimethoprim 800-160 MG Oral Tablet TAKE 1 TABLET BY MOUTH TWICE A DAY FOR 10 DAYS Quantity: 14 Refills: 0 Start : 09-Apr-2017 Active Tc-99m tetrofosmin (Myoview) injection 31.2 millicurie (1 source) Start: 04-27-2025 End: 04-27-2025 31.2 millicurie, intravenous , Once in imaging, Starting on Wed04/27/25 at 1115, For 1 dose, Administer 45 to 90 minutes prior to imaging unless otherwise indicated. Tc-99m tetrofosmin (Myoview) injection 9.3 millicurie (1 source) Start: 04-27-2025 End: 04-27-2025 9.3 millicurie, intravenous, Once in imaging, Starting on Wed04/27/25 at 1029, For 1 dose, Administer 45 to 90 minutes prior to imaging unless otherwise indicated. 1 ml triamcinolone acetonide 40 mg/ml injection (14 sources) Corticosteroid Start: 11-25-2023 End: 11-25-2023 triamcinolone acetonide (Kenalog-40) injection 2.5 mg take 2 spray(s) by inhalation on ce daily triamcinolone acetonide (NASACORT AQ) 55 mcg nasal inhaler Use 2 Sprays in the nose once daily. Active Comment on above: Use 2 Sprays in the nose once daily. valproic acid 50 mg/ml oral solution (3 sources) Mood Stabilizer, Anti-epileptic Agent Start: 04-14-2021 Valproic Acid 250 MG/5ML Oral Solution Quantity: 600 Refills: 0 Ordered: 16-Apr-2021 DO Start : 14-Apr-2021 Active Problems Active Problems Problem Classification Problem Date Documented Da te Episodic/Chronic Acute and unspecified renal failure (20 sources) Acute kidney failure stage 1 06-17-2020 Episodic Acute myocardial infarction (20 sources) Non-ST elevation (NSTEMI) myocardial infarction; Translations: [Myocardial infarction] Onset: 2 02-08-2024 Chronic Administrative/social admission (6 sources) Patient encounter status; Translations: [Dietary counseling and surveillance] 03-15-2025 Episodic Alcohol-related disorders (20 sources) History of alcohol abuse; Translations: [Alcohol abuse, in remission] Onset: 3 02-09-2020 Chronic Anxiety disorders (20 sources) Anxiety; Translations: [Anxiety disorder, unspecified] Onset: 3 04-04-2020 Chronic Aortic and peripheral arterial embolism or thrombosis (20 sources) Occlusion of aortoiliac artery; Translations: [Other arterial embolism and thrombosis of abdominal aorta] Onset: 9 12-22-2018 Chronic Asthma (20 sources) Asthma; Translations: [Unspecified asthma, uncomplicated] Onset: 2 Resolved: 2 04-04-2020 Chronic Cardiac dysrhythmias (20 sources) Sinus node dysfunction; Translations: [Sinoatrial node dysfunction] Onset: 3 07-29-2023 Chronic Chronic obstructive pulmonary disease and bronchiectasis (20 sources) Asthma-chronic obstructive pulmonary disease overlap syndrome; Translations: [Chronic obstructive lung disease] Onset: 8 Resolved: 2 04-04-2020 Chronic Chronic obstructive pulmonary disease and bronchiectasis (2 sources) Chronic obstructive pulmonary disease and bronchiectasis; Translations: [Other specified chronic obstructive pulmonary disease] Onset: 4 Coagulation and hemorrhagic disorders (1 source) Thrombocytopenia, unspecified; Translations: [Thrombocytopenia, unspecified] Onset: 5 Chronic Conduction disorders (20 sources) Patient encounter status; Translations: [Encounter for adjustment and management of other part of cardiac pacemaker] Onset: 5 04-19-2024 Chronic Coronary atherosclerosis and other heart disease (20 sources) Coronary arteriosclerosis; Translations: [Atherosclerotic heart disease of [place] coronary artery without angina pectoris] Onset: 5 02-14-2025 Chronic Diabetes mellitus with complications (20 sources) Type II diabetes mellitus uncontrolled; Translations: [Neuropathy due to diabetes mellitus] Onset: 9 03-28-2014 Chronic Diabetes mellitus without complication (20 sources) Diabetes mellitus; Translations: [Type 2 diabetes mellitus without complication] Onset: 6 Resolved: 1 04-04-2020 Chronic Disorders of lipid metabolism (20 sources) Hyperlipidemia; Translations: [Other and unspecified hyperlipidemia] Onset: 9 Resolved: 5 12-21-2018 Chronic Epilepsy; convulsions (20 sources) Seizure disorder; Translations: [Epilepsy, unspecified, without mention of intractable epilepsy] Onset: 3 04-04-2020 Chronic Epilepsy; convulsions (20 sources) Seizure; Translations: [Unspecified convulsions] Onset: 8 12-21-2018 Episodic Esophageal disorders (20 sources) Gastroesophageal reflux disease; Translations: [Gastro-esophageal reflux disease without esophagitis] Onset: 3 10-20-2023 Chronic Essential hypertension (20 sources) Benign essential hypertension; Translations: [Benign essential hypertension] Onset: 9 Resolved: 4 04-04-2020 Chronic Headache; including migraine (2 sources) Intractable chronic tension headache; Translations: [Chronic tension-type headache, intractable] 03-15-2024 Chronic Heart valve disorders (1 source) Rheumatic disorders of both mitral and tricuspid valves; Translations: [Rheumatic disorders of both mitral and tricuspid valves] Onset: 3 Chronic Menopausal disorders (2 sources) Menopausal and female climacteric states; Translations: [MENOPAUSAL AND FEMALE CLIMACTERIC STATES] Onset: 8 Chronic Menstrual disorders (20 sources) Menorrhagia; Translations: [Irregular periods] Onset: 9 04-29-2017 Chronic Mood disorders (20 sources) Depressive disorder; Translations: [Depression] Onset: 9 04-04-2020 Chronic Nervous system congenital anomalies (20 sources) Chiari malformation; 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] Onset: 1 Resolved: 2 Chronic Nutritional deficiencies (20 sources) Vitamin D deficiency; Translations: [Unspecified vitamin D deficiency] Onset: 3 07-29-2023 Chronic Occlusion or stenosis of precerebral arteries (12 sources) Carotid artery occlusion; Translations: [Occlusion and stenosis of unspecified carotid artery] Onset: 5 02-16-2025 Chronic Osteoarthritis (1 source) Primary gonarthrosis, bilateral; Translations: [Bilateral primary osteoarthritis of knee] 11-25-2023 Chronic Other aftercare (20 sources) Long-term current use of insulin; Translations: [Long-term (current) use of insulin] Episodic Other aftercare (1 source) Other nursing home (current) drug therapy; Translations: [OTH [employer]ER CURRENT DRUG THERAPY] Onset: 2 Episodic Other circulatory disease (3 sources) Subclavian artery stenosis; Translations: [Stricture of artery] 09-06-2023 Chronic Other circulatory disease (20 sources) History of cardiovascular surgery; Translations: [Presence of other cardiac implants and grafts] Onset: 4 12-15-2023 Chronic Other circulatory disease (2 sources) Presence of other cardiac implants and grafts; Translations: [Presence of other cardiac implants and grafts] Onset: 4 Chronic Other circulatory disease (4 sources) Vascular disorder; Translations: [Unspecified disorder of circulatory system] Episodic Other connective tissue disease (20 sources) H/O: arthritis; Translations: [Personal history of arthritis] Episodic Other connective tissue disease (1 source) Nontraumatic rupture of rotator cuff of right shoulder; Translations: [Unspecified rotator cuff tear or rupture of right shoulder, not specified as traumatic] Onset: 4 Episodic Other ear and sense organ disorders (13 sources) Sensorineural hearing loss; Translations: [Sensorineural hearing loss (SNHL) of left ear with restricted hearing of right ear] Chronic Other ear and sense organ disorders (20 sources) Mixed conductive AND sensorineural hearing loss; Translations: [Mixed hearing loss, bilateral] Onset: 3 07-29-2023 Chronic Other ear and sense organ disorders (20 sources) Bilateral hearing loss; Translations: [Mixed hearing loss, bilateral] Onset: 3 07-29-2023 Chronic Other ear and sense organ disorders (20 sources) Asymmetrical sensorineural hearing loss; Translations: [Sensorineural hearing loss, asymmetrical] Onset: 3 10-20-2023 Chronic Other ear and sense organ disorders (20 sources) Deafness of right ear 04-19-2014 Chronic Other ear and sense organ disorders (1 source) Otitis externa; Translations: [Unspecified otitis externa, unspecified ear] Onset: 2 Chronic Other ear and sense organ disorders (2 sources) Myringotomy tube(s) status; Translations: [Myringotomy tube(s) status] Onset: 4 Chronic Other ear and sense organ disorders (13 sources) Asymmetrical sensorineural hearing loss; Translations: [Asymmetric SNHL (sensorineural hearing loss)] Episodic Other ear and sense organ disorders (1 source) Otorrhea of right ear; Translations: [Otorrhea, right ear] 10-12-2023 Episodic Other ear and sense organ disorders (1 source) Impacted cerumen in right ear; Translations: [Impacted cerumen, right ear] 10-12-2023 Episodic Other endocrine disorders (20 sources) Polycystic ovarian syndrome; Translations: [Polycystic ovary syndrome] Onset: 3 06-17-2020 Chronic Other endocrine disorders (20 sources) Pituitary dependent hypercortisolism; 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] Onset: 3 Resolved: 4 06-17-2020 Chronic Other endocrine disorders (20 sources) Pituitary cyst; Translations: [Other disorders of pituitary gland] Onset: 4 06-17-2020 Chronic Other endocrine disorders (1 source) Muncie's syndrome, unspecified; 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, unspecified] Onset: 5 Chronic Other female genital disorders (20 sources) Abnormal uterine bleeding; Translations: [Other specified abnormal uterine and vaginal bleeding] Onset: 3 10-20-2023 Chronic Other gastrointestinal disorders (20 sources) Personal history of other diseases of the digestive system; Translations: [History of gastroesophageal reflux disease] Episodic Other injuries and conditions due to external causes (1 source) Traumatic AND/OR non-traumatic injury; Translations: [Other injury of unspecified body region, initial encounter] Onset: 3 Episodic Other injuries and conditions due to external causes (1 source) Other injury of unspecified body region, initial encounter; Translations: [Other injury of unspecified body region, initial encounter] Onset: 5 Episodic Other lower respiratory disease (20 sources) History of chronic obstructive airway disease; Translations: [Personal history of other diseases of respiratory system] Episodic Other lower respiratory disease (20 sources) H/O: asthma; Translations: [Personal history of other diseases of respiratory system] Episodic Other lower respiratory disease (20 sources) H/O: bronchitis; Translations: [Personal history of other diseases of respiratory system] Episodic Other lower respiratory disease (20 sources) H/O: respiratory disease; Translations: [Personal history of other specified diseases] Episodic Other lower respiratory disease (20 sources) Disorder of lung; Translations: [Respiratory abnormality, unspecified] Episodic Other nervous system disorders (20 sources) Chiari malformation type I; Translations: [Compression of brain] Chronic Other nervous system disorders (20 sources) Syringomyelia; 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] Onset: 3 09-07-2023 Chronic Other nervous system disorders (20 sources) Neuropathy; Translations: [Polyneuropathy, unspecified] Onset: 9 11-17-2018 Chronic Other nervous system disorders (9 sources) Bilateral carpal tunnel syndrome; Translations: [Carpal tunnel syndrome, bilateral upper limbs] Onset: 5 04-05-2025 Chronic Other nervous system disorders (1 source) Carpal tunnel syndrome of left wrist; Translations: [Carpal tunnel syndrome, left upper limb] 05-15-2025 Chronic Other nervous system disorders (1 source) Carpal tunnel syndrome of right wrist; Translations: [Carpal tunnel syndrome, right upper limb] 05-15-2025 Chronic Other nervous system disorders (2 sources) Carpal tunnel syndrome, left upper limb; Translations: [Carpal tunnel syndrome, left upper limb] Onset: 5 Chronic Other nervous system disorders (2 sources) Carpal tunnel syndrome, right upper limb; Translations: [Carpal tunnel syndrome, right upper limb] Onset: 5 Chronic Other nervous system disorders (2 sources) Carpal tunnel syndrome, bilateral upper limbs; Translations: [Carpal tunnel syndrome, bilateral upper limbs] Onset: 5 Chronic Other nervous system disorders (20 sources) H/O: epilepsy 04-19-2014 Episodic Other nervous system disorders (1 source) Personal history of other diseases of the nervous system and sense organs; Translations: [Personal history of other diseases of the nervous system and sense organs] Onset: 5 Episodic Other non-traumatic joint disorders (3 sources) Pain in right knee; Translations: [Pain in joint, lower leg] 09-06-2023 Episodic Other nutritional; endocrine; and metabolic disorders (20 sources) Severe obesity; Translations: [Morbid (severe) obesity due to excess calories] Onset: 9 05-13-2020 Chronic Other nutritional; endocrine; and metabolic disorders (20 sources) Obesity; Translations: [Obesity, unspecified] Onset: 3 07-29-2023 Chronic Other nutritional; endocrine; and metabolic disorders (20 sources) Body mass index 30+ - obesity; Translations: [Body mass index (BMI) 34.0-34.9, adult] Onset: 3 Resolved: 4 08-27-2023 Chronic Other nutritional; endocrine; and metabolic disorders (20 sources) Morbid obesity; Translations: [Morbid (severe) obesity due to excess calories] Onset: 5 10-20-2023 Chronic Other nutritional; endocrine; and metabolic disorders (2 sources) Body mass index (BMI) 38.0-38.9, adult; Translations: [Body mass index (BMI) 38.0-38.9, adult] Onset: 5 Chronic Other nutritional; endocrine; and metabolic disorders (2 sources) Body mass index (BMI) 37.0-37.9, adult; Translations: [Body mass index (BMI) 37.0-37.9, adult] Onset: 5 Chronic Other nutritional; endocrine; and metabolic disorders (2 sources) Morbid (severe) obesity due to excess calories; Translations: [Morbid (severe) obesity due to excess calories (Multi)] Onset: 3 Chronic Other nutritional; endocrine; and metabolic disorders (2 sources) Body mass index (BMI) 35.0-35.9, adult; Translations: [Body mass index (BMI) 35.0-35.9, adult] Onset: 3 Chronic Other nutritional; endocrine; and metabolic disorders (20 sources) H/O: diabetes mellitus; Translations: [Personal history of other endocrine, metabolic, and immunity disorders] Episodic Other screening for suspected conditions (not mental disorders or infectious disease) (6 sources) Abnormal findings diagnostic imaging heart+coronary circulat; Translations: [Abnormal findings on diagnostic imaging of heart and coronary circulation] Onset: 5 01-14-2024 Episodic Other skin disorders (1 source) Eruption; Translations: [Rash and other nonspecific skin eruption] Onset: 4 Episodic Peripheral and visceral atherosclerosis (20 sources) Intermittent claudication of bilateral lower limbs co-occurrent and due to atherosclerosis; Translations: [Atherosclerosis of [place] arteries of extremities with intermittent claudication, bilateral legs] Onset: 9 12-22-2018 Chronic Residual codes; unclassified (20 sources) Obstructive sleep apnea syndrome; Translations: [Obstructive sleep apnea (adult) (pediatric)] Onset: 3 04-04-2020 Chronic Residual codes; unclassified (20 sources) Sleep apnea; Translations: [Sleep apnea, unspecified] Onset: 3 06-17-2020 Chronic Comment on above: cpap Residual codes; unclassified (10 sources) Obstructive sleep apnea (adult) (pediatric); Translations: [Obstructive sleep apnea (adult) (pediatric)] Onset: 1 Resolved: 2 Chronic Residual codes; unclassified (1 source) Left against medical advice; Translations: [Surgical or other procedure not carried out because of patient's decision] 09-10-2021 Episodic Residual codes; unclassified (20 sources) Tobacco user 04-04-2020 Episodic Residual codes; unclassified (1 source) Other general symptoms and signs; Translations: [Other general symptoms and signs] Onset: 4 Episodic Residual codes; unclassified (3 sources) Smokes tobacco daily 03-28-2025 Episodic Respiratory failure; insufficiency; arrest (adult) (1 source) Dependence on supplemental oxygen; Translations: [DEPENDENCE ON SUPPLEMENTAL OXYGEN] Onset: 2 Chronic Respiratory failure; insufficiency; arrest (adult) (20 sources) Respiratory failure 06-17-2020 Episodic Screening and history of mental health and substance abuse codes (20 sources) H/O: psychiatric disorder; Translations: [H/O: depression] Episodic Skin and subcutaneous tissue infections (1 source) Infection of skin and/or subcutaneous tissue; Translations: [Local infection of the skin and subcutaneous tissue, unspecified] Onset: 3 Episodic Sprains and strains (2 sources) Sprain of unspecified ligament of right ankle, initial encounter; Translations: [Sprain of finger of left hand] Onset: 8 Episodic Substance-related disorders (20 sources) Smoker; Translations: [Tobacco user] Onset: 9 Resolved: 4 05-14-2020 Chronic Comment on above: Added secondary to d ocumentation in Social History. Superficial injury; contusion (1 source) Contusion of knee; Translations: [Contusion of unspecified knee, initial encounter] Onset: 3 Episodic Thyroid disorders (20 sources) Nontoxic single thyroid nodule; Translations: [Non-toxic multinodular goiter] Onset: 8 12-01-2018 Chronic Unclassified (2 sources) Unknown / UNK(Unknown) Onset: 8 Unclassified (2 sources) DIFFICULTY WALKING, INCONTINENCE 09-09-2021 Comment on above: DIFFICULTY WALKING, INCONTINENCE Unclassified (1 source) FUV 07-09-2021 Comment on above: FUV Unclassified (1 source) MR103, MR106 09-02-2021 Comment on above: MR103, MR106 Unclassified (1 source) 2 MONTH F/U 07-31-2021 Comment on above: 2 MONTH F/U Unclassified (1 source) Left against medical advice 09-10-2021 Unclassified (1 source) CONTACT W/AND (SUSP) EXPOS COVID-19; Translations: [CONTACT W/AND (SUSP) EXPOS COVID-19] Onset: 2 Unclassified (3 sources) Other ventricular tachycardia; Translations: [Other ventricular tachycardia] Onset: 3 Unclassified (3 sources) PAD (peripheral artery disease) 02-16-2025 Unclassified (2 sources) Chronic pain of both knees 06-05-2025 Unclassified (1 source) H/O ETOH abuse 06-04-2025 Unclassified (2 sources) Med Refill; Translations: [Med Refill] Onset: 5 Unclassified (1 source) Obesity, class 2; Translations: [Obesity, class 2] Onset: 3 Urinary tract infections (1 source) Urinary tract infection, site not specified; Translations: [Urinary tract infection, site not specified] Onset: 8 Episodic Viral infection (20 sources) Genital herpes simplex; Translations: [Herpesviral infection of urogenital system, unspecified] Onset: 3 04-04-2020 Chronic Past or Other Problems Problem Classification Problem Date Documented Da te Episodic/Chronic Abdominal pain (20 sources) Unspecified abdominal pain; Translations: [Epigastric pain] Onset: 07-19-2018 02-09-2020 Episodic Cardiac dysrhythmias (20 sources) Bradycardia, unspecified; Translations: [Sinus bradycardia] Onset: 10-07-2022 Episodic Conditions associated with dizziness or vertigo (20 sources) Dizziness; Translations: [Dizziness and giddiness] Onset: 04-19-2024 04-19-2024 Episodic Fluid and electrolyte disorders (20 sources) Hypokalemia; Translations: [Hypopotassemia] Onset: 07-29-2023 07-29-2023 Episodic Gastrointestinal hemorrhage (20 sources) Rectal hemorrhage; Translations: [Hemorrhage of anus and rectum] Onset: 05-19-2013 02-09-2020 Episodic Headache; including migraine (20 sources) Headache; Translations: [Headache] Onset: 11-17-2018 11-17-2018 Episodic Mood disorders (20 sources) Mood disorders Onset: 04-27-2023 08-08-2023 Nausea and vomiting (20 sources) Nausea and vomiting; Translations: [Nausea with vomiting] Onset: 07-29-2023 02-09-2020 Episodic Nonspecific chest pain (20 sources) Chest pain, unspecified; Translations: [Chest pain] Onset: 07-11-2022 Episodic Nutritional deficiencies (20 sources) Cobalamin deficiency; Translations: [Other B-complex deficiencies] Onset: 07-29-2023 07-29-2023 Episodic Other and unspecified benign neoplasm (20 sources) Tubular adenoma of colon; Translations: [Benign neoplasm of colon, unspecified] Onset: 03-01-2014 10-20-2023 Episodic Other circulatory disease (20 sources) Carotid bruit; Translations: [Other specified symptoms and signs involving the circulatory and respiratory systems] Onset: 02-08-2024 12-15-2023 Episodic Other connective tissue disease (20 sources) Iliotibial band friction syndrome; Translations: [Iliotibial band syndrome, unspecified leg] Onset: 10-20-2023 02-09-2020 Episodic Other connective tissue disease (20 sources) Cramp in limb; Translations: [Cramp and spasm] Onset: 08-08-2012 10-20-2023 Episodic Other connective tissue disease (1 source) Pain in left arm; Translations: [Pain in left arm] Onset: 03-09-2025 Episodic Other disorders of stomach and duodenum (20 sources) Hyperplasia of [place] glands of duodenum; Translations: [Other diseases of stomach and duodenum] Onset: 06-05-2013 02-09-2020 Episodic Other endocrine disorders (20 sources) Hypercortisolism; 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] Onset: 07-29-2023 Resolved: 02-08-2024 09-07-2023 Chronic Other gastrointestinal disorders (20 sources) Constipation; Translations: [Constipation, unspecified] Onset: 10-20-2023 02-09-2020 Episodic Other liver diseases (20 sources) Hepatic failure; Translations: [Hepatic failure, unspecified without coma] Onset: 05-05-2024 06-17-2020 Episodic Other lower respiratory disease (20 sources) Dyspnea; Translations: [Shortness of breath] Onset: 10-07-2022 Episodic Other nervous system disorders (20 sources) Skin sensation disturbance; Translations: [Unspecified disturbances of skin sensation] Onset: 08-08-2012 10-20-2023 Episodic Other nervous system disorders (1 source) Postoperative pain ; Translations: [Other acute postprocedural pain] 05-02-2024 Episodic Other nutritional; endocrine; and metabolic disorders (20 sources) H/O: thyroid disorder; Translations: [Personal history of other endocrine, metabolic, and immunity disorders] Onset: 07-29-2023 09-07-2023 Episodic Other nutritional; endocrine; and metabolic disorders (20 sources) Abnormal weight loss; Translations: [Abnormal weight loss] Onset: 10-20-2023 02-09-2020 Episodic Other skin disorders (20 sources) Night sweats; Translations: [Generalized hyperhidrosis] Onset: 11-24-2023 11-25-2023 Episodic Otitis media and related conditions (20 sources) Fluid level behind tympanic membrane; Translations: [Finding of fluid behind tympanic membrane] Onset: 07-29-2023 07-29-2023 Episodic Spondylosis; intervertebral disc disorders; other back problems (20 sources) Chronic low back pain; Translations: [Lumbago with sciatica, right side] Onset: 12-22-2018 12-22-2018 Episodic Syncope (20 sources) Syncope and collapse; Translations: [Syncope and collapse] Onset: 04-09-2023 Episodic Unclassified (11 sources) History of clinical finding in subject; Translations: [History of snoring] Unclassified (2 sources) Other ventricular tachycardia; Translations: [Other ventricular tachycardia] Onset: 04-09-2023 Unclassified (20 sources) Onset: 09-07-2023 Resolved: 07-11-2025 09-07-2023 Unclassified (1 source) Obesity, class 2; Translations: [Obesity, class 2] Onset: 12-28-2024 NEGATED: Highlighted row has not occurred!Residual codes; unclassified (20 sources) Disease Episodic Results Test Name Value Interpretation Reference Range Facility A1C with Estimated Average G francisco javier 08-11-2025 Glucose [Mass/Vol] 203 mg/dL Normal [facility] Comment on above: Result Comment: PERF ORMED BY: [place] [address] PATHOLOGIST COOPERER BAMBI VANG M.D. Performed By: #### L H, CPEP, ACTH, IGF-1, GH #### [facility] , #### LIPID, [id number], VLADIMIR, FSH, LDLD, RENAL, PRL #### [facility] [address] [place] [address] HbA1c (Bld) [Mass fraction] 8.7 % High 4.3-5.6 [facility] Comment on above: Result Comment: Incr eased risk for diabetes: 5.7 - 6.4 diabetes: >6.4 glycemic control for adults with diabetes: <7.0 Performed By: #### L H, CPEP, ACTH, IGF-1, GH #### [facility] , #### LIPID, [id number], VLADIMIR, FSH, LDLD, RENAL, PRL #### [facility] [address] [place] [address] Basic Metabolic Panelon Anion gap [Moles/Vol] 11.8 mmol/L Normal 6.0-15.0 [facility] Comment on above: Performed By: #### L H, CPEP, ACTH, IGF-1, GH #### [facility] , #### LIPID, [id number], VLADIMIR, FSH, LDLD, RENAL, PRL #### [address] Calcium [Mass/Vol] 8.7 mg/dL Normal 8.6-10.3 [facility] Comment on above: Performed By: #### L H, CPEP, ACTH, IGF-1, GH #### [facility] , #### LIPID, [id number], VLADIMIR, FSH, LDLD, RENAL, PRL #### [address] Chloride [Moles/Vol] 101 mmol/L Normal 98-107 [facility] Comment on above: Performed By: #### L H, CPEP, ACTH, IGF-1, GH #### [facility] , #### LIPID, [id number], VLADIMIR, FSH, LDLD, RENAL, PRL #### [address] CO2 [Moles/Vol] 22.1 mmol/L Normal 21.0-31.0 [facility] Comment on above: Performed By: #### L H, CPEP, ACTH, IGF-1, GH #### [facility] , #### LIPID, [id number], VLADIMIR, FSH, LDLD, RENAL, PRL #### [address] Creatinine [Mass/Vol] 0.95 mg/dL Normal 0.60-1.20 [facility] Comment on above: Performed By: #### L H, CPEP, ACTH, IGF-1, GH #### [facility] , #### LIPID, [id number], VLADIMIR, FSH, LDLD, RENAL, PRL #### [facility] [address] [place] [address] Creatinine Clr Calc Pharmacy 78.96 Normal [facility] Comment on above: Performed By: #### L H, CPEP, ACTH, IGF-1, GH #### [facility] , #### LIPID, [id number], VLADIMIR, FSH, LDLD, RENAL, PRL #### [facility] [address] [place] [address] [place] GFR/1.73 sq M.predicted MDRD (S/P/Bld) [Vol rate/Area] mL/min/{1.73_m2} Normal [facility] Comment on above: Performed By: #### L H, CPEP, ACTH, IGF-1, GH #### [facility] , #### LIPID, [id number], VLADIMIR, FSH, LDLD, RENAL, PRL #### [facility] [address] Glucose [Mass/Vol] 277 mg/dL High 70-100 [facility] Comment on above: Result Comment: [facility] Glucose Reference Range is dependent on time and content of last meal. Glucose of more than 200 mg/dL in a nonstressed, ambulatory subject supports the diagnosis of Diabetes Mellitus. ADA recommended reference range Performed By: #### L H, CPEP, ACTH, IGF-1, GH #### [facility] , #### LIPID, [id number], VLADIMIR, FSH, LDLD, RENAL, PRL #### [facility] [address] Potassium [Moles/Vol] 3.9 mmol/L Normal 3.5-5.1 [facility] Comment on above: Performed By: #### L H, CPEP, ACTH, IGF-1, GH #### [facility] , #### LIPID, [id number], VLADIMIR, FSH, LDLD, RENAL, PRL #### [facility] [address] [place] [address] [place] Sodium [Moles/Vol] 131 mmol/L Low 136-145 [facility] Comment on above: Performed By: #### L H, CPEP, ACTH, IGF-1, GH #### [facility] , #### LIPID, [id number], VLADIMIR, FSH, LDLD, RENAL, PRL #### [address] Urea nitrogen [Mass/Vol] 25 mg/dL Normal 7-25 [facility] Comment on above: Performed By: #### L H, CPEP, ACTH, IGF-1, GH #### [facility] , #### LIPID, [id number], VLADIMIR, FSH, LDLD, RENAL, PRL #### [address] Diff and CBCon 08-11-2025 Anisocytosis Ql (Bld) Slight Normal [facility] Comment on above: Performed By: #### L H, CPEP, ACTH, IGF-1, GH #### [facility] , #### LIPID, [id number], VLADIMIR, FSH, LDLD, RENAL, PRL #### [address] Band form neutrophils/100 WBC (Bld) 7 % High 0-5 [facility] Comment on above: Performed By: #### L H, CPEP, ACTH, IGF-1, GH #### [facility] , #### LIPID, [id number], VLADIMIR, FSH, LDLD, RENAL, PRL #### [address] Basophils/100 WBC (Bld) 1 % Normal 0-2 [facility] Comment on above: Performed By: #### L H, CPEP, ACTH, IGF-1, GH #### [facility] , #### LIPID, [id number], VLADIMIR, FSH, LDLD, RENAL, PRL #### [place] [address] [place] Eosinophils/100 WBC (Bld) 1 % Normal 1-3 [facility] Comment on above: Performed By: #### L H, CPEP, ACTH, IGF-1, GH #### [facility] , #### LIPID, [id number], VLADIMIR, FSH, LDLD, RENAL, PRL #### [address] Erythrocyte distribution width (RBC) [Ratio] 14.2 % Normal 11.9-15.3 [facility] Comment on above: Performed By: #### L H, CPEP, ACTH, IGF-1, GH #### [facility] , #### LIPID, [id number], VLADIMIR, FSH, LDLD, RENAL, PRL #### [address] Hematocrit (Bld) [Volume fraction] 36.2 % Normal 34.0-46.4 [facility] Comment on above: Performed By: #### L H, CPEP, ACTH, IGF-1, GH #### [facility] , #### LIPID, [id number], VLADIMIR, FSH, LDLD, RENAL, PRL #### [address] Hemoglobin (Bld) [Mass/Vol] 12.3 g/dL Normal 11.8-15.4 [facility] Comment on above: Performed By: #### L H, CPEP, ACTH, IGF-1, GH #### [facility] , #### LIPID, [id number], VLADIMIR, FSH, LDLD, RENAL, PRL #### [address] Lymphocytes/100 WBC (Bld) 59 % High 18-42 [facility] Comment on above: Performed By: #### L H, CPEP, ACTH, IGF-1, GH #### [facility] , #### LIPID, [id number], VLADIMIR, FSH, LDLD, RENAL, PRL #### [address] Macrocytosis Slight Normal [facility] Comment on above: Performed By: #### L H, CPEP, ACTH, IGF-1, GH #### [facility] , #### LIPID, [id number], VLADIMIR, FSH, LDLD, RENAL, PRL #### [address] [facility] (RBC) [Entitic mass] 32.7 pg Normal 24.7-34.3 [facility] Comment on above: Performed By: #### L H, CPEP, ACTH, IGF-1, GH #### [facility] , #### LIPID, [id number], VLADIMIR, FSH, LDLD, RENAL, PRL #### [address] MCV (RBC) [Entitic vol] 96.3 fL Normal 80-100 [facility] Comment on above: Performed By: #### L H, CPEP, ACTH, IGF-1, GH #### [facility] , #### LIPID, [id number], VLADIMIR, FSH, LDLD, RENAL, PRL #### [address] Mean Corpuscular HGB Conc 33.9 g/dL Normal 32.0-35.0 [facility] Comment on above: Performed By: #### L H, CPEP, ACTH, IGF-1, GH #### [facility] , #### LIPID, [id number], VLADIMIR, FSH, LDLD, RENAL, PRL #### [address] Microcytosis Slight Normal [facility] Comment on above: Performed By: #### L H, CPEP, ACTH, IGF-1, GH #### [facility] , #### LIPID, [id number], VLADIMIR, FSH, LDLD, RENAL, PRL #### [address] Monocytes/100 WBC (Bld) 1 % Low 2-11 [facility] Comment on above: Performed By: #### L H, CPEP, ACTH, IGF-1, GH #### [facility] , #### LIPID, [id number], VLADIMIR, FSH, LDLD, RENAL, PRL #### [address] Nucleated Red Blood Cell 2 /100{WBC} High 0-0 [facility] Comment on above: Performed By: #### L H, CPEP, ACTH, IGF-1, GH #### [facility] , #### LIPID, [id number], VLADIMIR, FSH, LDLD, RENAL, PRL #### [address] Platelet Estimate Decreased Normal Normal [facility] Comment on above: Performed By: #### L H, CPEP, ACTH, IGF-1, GH #### [facility] , #### LIPID, [id number], VLADIMIR, FSH, LDLD, RENAL, PRL #### [address] Platelet mean volume (Bld) [Entitic vol] 8.0 fL Normal 6.3-10.7 [facility] Comment on above: Performed By: #### L H, CPEP, ACTH, IGF-1, GH #### [facility] , #### LIPID, [id number], VLADIMIR, FSH, LDLD, RENAL, PRL #### [address] Platelet Morphology Normal Normal Normal [facility] Comment on above: Result Comment: PERF ORMED BY: [place] [address] PATHOLOGIST COOPERER BAMBI VANG M.D. Performed By: #### L H, CPEP, ACTH, IGF-1, GH #### [facility] , #### LIPID, [id number], VLADIMIR, FSH, LDLD, RENAL, PRL #### [address] Platelets (Bld) [#/Vol] 24 10*3/uL Off scale low 150-450 [facility] Comment on above: Performed By: #### L H, CPEP, ACTH, IGF-1, GH #### [facility] , #### LIPID, [id number], VLADIMIR, FSH, LDLD, RENAL, PRL #### [address] Poikilocytosis Slight Normal [facility] Comment on above: Performed By: #### L H, CPEP, ACTH, IGF-1, GH #### [facility] , #### LIPID, [id number], VLADIMIR, FSH, LDLD, RENAL, PRL #### [address] RBC (Bld) [#/Vol] 3.76 10*6/uL Normal 3.60-5.00 [facility] Comment on above: Performed By: #### L H, CPEP, ACTH, IGF-1, GH #### [facility] , #### LIPID, [id number], VLADIMIR, FSH, LDLD, RENAL, PRL #### [address] Reactive Lymphocytes 8 % Normal 0-12 [facility] Comment on above: Performed By: #### L H, CPEP, ACTH, IGF-1, GH #### [facility] , #### LIPID, [id number], VLADIMIR, FSH, LDLD, RENAL, PRL #### [address] Segmented neutrophils/100 WBC (Bld) 24 % Low 50-70 [facility] Comment on above: Performed By: #### L H, CPEP, ACTH, IGF-1, GH #### [facility] , #### LIPID, [id number], VLADIMIR, FSH, LDLD, RENAL, PRL #### [address] Spherocytes Slight Normal [facility] Comment on above: Performed By: #### L H, CPEP, ACTH, IGF-1, GH #### [facility] , #### LIPID, [id number], VLADIMIR, FSH, LDLD, RENAL, PRL #### [address] WBC (Bld) [#/Vol] 3.6 10*3/uL Low 3.8-11.6 [facility] Comment on above: Performed By: #### L H, CPEP, ACTH, IGF-1, GH #### [facility] , #### LIPID, [id number], VLADIMIR, FSH, LDLD, RENAL, PRL #### [address] White Blood Count 3.6 [CFU]/mL Low 3.8-11.6 [facility] Comment on above: Performed By: #### L H, CPEP, ACTH, IGF-1, GH #### [facility] , #### LIPID, [id number], VLADIMIR, FSH, LDLD, RENAL, PRL #### [address] Glucose Poct Glucometerson 1 Glucose [Mass/Vol] 266 mg/dL Normal [facility] Comment on above: Result Comment: [facility] Glucose Reference Range is dependent on time and content of last meal. Glucose of more than 200 mg/dL in a nonstressed, ambulatory subject supports the diagnosis of Diabetes Mellitus. PERFORMED BY: [place] [address] PATHOLOGIST COOPERER BAMBI VANG M.D. Performed By: #### L H, CPEP, ACTH, IGF-1, GH #### [facility] , #### LIPID, [id number], VLADIMIR, FSH, LDLD, RENAL, PRL #### [address] Glucose [Mass/Vol] 217 mg/dL Normal [facility] Comment on above: Result Comment: [facility] Glucose Reference Range is dependent on time and content of last meal. Glucose of more than 200 mg/dL in a nonstressed, ambulatory subject supports the diagnosis of Diabetes Mellitus. PERFORMED BY: [place] [address] PATHOLOGIST COOPERER BAMBI VANG M.D. Performed By: #### C BC, CMP #### [facility] [address] [place] [address] HIV 1/O/2 Antigen/Antibodyon 08-11-2025 HIV Screen 4th Generation Non-Reactive Normal Non Reactive [facility] Comment on above: Result Comment: HIV- 1/HIV-2 antibodies and HIV-1 p24 antigen were NOT detected. There is no laboratory evidence of HIV infection. HIV Negative Performed at: [facility] [address] [id number] Suede Cleaner: Alvarez Cunningham PhD, Phone: [phone] PERFORMED BY: [place] [address] PATHOLOGIST COOPERER BAMBI VANG M.D. Performed By: #### L H, CPEP, ACTH, IGF-1, GH #### [facility] , #### LIPID, [id number], VLADIMIR, FSH, LDLD, RENAL, PRL #### [address] Hep C Ab wRfx to Qnt PCRon 1 Hepatitis C Virus Antibody Non-Reactive Normal Non Reactive [facility] Comment on above: Performed By: #### L H, CPEP, ACTH, IGF-1, GH #### [facility] , #### LIPID, [id number], VLADIMIR, FSH, LDLD, RENAL, PRL #### [address] Interpretation Hepatitis C Comment Normal . [facility] Comment on above: Result Comment: Not infected with HCV unless early or acute infection is suspected (which may be delayed in an immunocompromised individual), or other evidence exists to indicate HCV infection. Performed at: [facility] [address] [id number] Suede Cleaner: Alvarez Cunningham PhD, Phone: [phone] PERFORMED BY: [facility] [address] [place] [address] PATHOLOGIST COOPERER BAMBI VANG M.D. Performed By: #### L H, CPEP, ACTH, IGF-1, GH #### [facility] , #### LIPID, [id number], VLADIMIR, FSH, LDLD, RENAL, PRL #### [facility] [address] [place] [address] 08-11-2025 L ----- Specimen: [id number] Received: 08/11/25 Status: ERIC Juan Num: [id number] Spec Type: Impression Subm Dr: Yoli Waterman MD Tissues: Procedures: PATHREVIEW Age/ Patient Sex Location Account Attending Physician Hien Lam 49/F 4N [id number] Steven Ott MD SPEC NUM: [id number] RECD: 08/11/25 STATUS: ERIC MARTINEZ NUM: [id number] LLUVIA: 08/11/25 DR: Yoli Waterman MD ENTERED: 08/11/[address]: JENNIFER TYPE: Impression DEPT: DC ORDERED: PATHREVIEW ORDERED: PATHREVIEW Pathologist Review Thrombocytopenia. Mild leukopenia. Bicytopenia may be secondary to bone marrow suppression or replacement. Thrombocytopenia may be due to decreased production or peripheral consumption/destruction. Clinical correlation is suggested. CBC Date Time Test Result Flag (u) Normal Range 08/10/252021 Neut % (Auto) 37.2 . % Lymp % (Auto) 59.1 . % [place] % (Auto) 2.8 . % Eos % (Auto) 0.4 . % Baso % (Auto) 0.5 . % NRBC% 0.2 0-0.5 /100 WBC Neut # (Auto) 1.7 L 1.8-7.7 x10E3/uL Lymph # (Auto) 2.7 1.00-4.8 x10E3/uL [place] # (Auto) 0.1 0.0-0.8 x10E3/uL Eos # (Auto) 0.0 0.0-0.45 x10E3/uL Baso# (Auto) 0.0 0.0-0.2 x10E3/uL Tear Drop Slight 08/11/25 0608 WBC 3.6 L 3.8-11.6 X10E3/uL RBC 3.76 3.60-5.00 x10E6/uL Specimen: [id number] Received: 08/11/25 Status: ERIC Martinez Num: [id number] Spec Type: Impression Subm Dr: Yoli Waterman MD Tissues: Procedures: PATHREVIEW Patient: Hien Lam [id number] (Continued) Specimen: [id number] Received: 08/11/25 (Continued) GARRICK (Continued) Signed (signature on file) Israel Echevarria JR, MD 08/13/25 1108 Specimen: [id number] Received: 08/11/25 Status: ERIC Martinez Num: [id number] Spec Type: Impression Subm Dr: Yoli Waterman MD Tissues: Procedures: PATHREVIEW Patient: LamHien J [id number] (Continued) Specimen: [id number] Received: 08/11/25 (Continued) CBC (Continued) HGB 12.3 11.8-15.4 g/dL HCT 36.2 34.0-46.4 % MCV 96.3 80-100 fl MCH 32.7 24.7-34.3 pg MCHC 33.9 32.0-35.0 g/dL RDW 14.2 11.9-15.3 % Plt 24 *L 150-450 x10E3/uL MPV 8.0 6.3-10.7 fl Seg 24 L 50-70 % Band 7 H 0-5 % Lymph 59 H 18-42 % Reactive Lymphs 8 0-12 % [place] 1 L 2-11 % Eos 1 1-3 % Baso 1 0-2 % NRBC 2 H 0-0 /100 WBC Poik Slight Aniso Slight Micro Slight Macro Slight Sphero Slight Plt Est Decreased Normal Plt Morphology Normal Normal Specimen: [id number] Received: 08/11/25 Status: ERIC Martinez Num: [id number] Spec Type: Impression Subm Dr: Yoli Waterman MD Tissues: Procedures: PATHREVIEW Patient: Hien Lam [id number] (Continued) Signed (signature on file) Israel Echevarria JR, MD 08/13/25 1108 Normal [facility] Magnesiumon 08-11-2025 Magnesium [Mass/Vol] 1.1 mg/dL Low 1.9-2.7 [facility] Comment on above: Result Comment: PERF ORMED BY: [facility] Diann [place] [address] PATHOLOGIST COOPERER BAMBI VANG M.D. Performed By: #### L H, CPEP, ACTH, IGF-1, GH #### [facility] , #### LIPID, [id number], VLADIMIR, FSH, LDLD, RENAL, PRL #### [address] Pathologist Slide Reviewon 1 Pathologist Slide Review Ordered Path Review Normal [facility] Comment on above: Result Comment: PERF ORMED BY: [place] [address] PATHOLOGIST COOPERER BAMBI VANG M.D. Performed By: #### L H, CPEP, ACTH, IGF-1, GH #### [facility] , #### LIPID, [id number], VLADIMIR, FSH, LDLD, RENAL, PRL #### [address] Urinalysison 08-11-2025 Appearance (U) Clear Normal Clear [facility] Comment on above: Order Comment: Name Collection Type:: Clean-Voided Midstream Performed By: #### B UN #### [address] Bilirubin,Urine Negative Normal Negative [facility] Comment on above: Order Comment: Name Collection Type:: Clean-Voided Midstream Performed By: #### B UN #### [address] Color (U) Light-Yellow Normal Yellow [facility] Comment on above: Order Comment: Name Collection Type:: Clean-Voided Midstream Performed By: #### B UN #### [address] Glucose Ql (U) 50 mg/dL Normal Normal [facility] Comment on above: Order Comment: Name Collection Type:: Clean-Voided Midstream Performed By: #### B UN #### [address] Ketones Ql (U) Negative Normal Negative [facility] Comment on above: Order Comment: Name Collection Type:: Clean-Voided Midstream Performed By: #### B UN #### [address] Leukocyte esterase Test strip Ql (U) Negative Normal Negative [facility] Comment on above: Order Comment: Name Collection Type:: Clean-Voided Midstream Performed By: #### B UN #### [address] Nitrite,Urine Negative Normal Negative [facility] Comment on above: Order Comment: Name Collection Type:: Clean-Voided Midstream Performed By: #### B UN #### [address] Occult Blood,Urine Negative Normal Negative [facility] Comment on above: Order Comment: Name Collection Type:: Clean-Voided Midstream Result Comment: PERF ORMED BY: [place] [address] PATHOLOGIST COOPERER BAMBI VANG M.D. Performed By: #### B UN #### [address] pH (U) 6.0 [pH] Normal 5.0-9.0 [facility] Comment on above: Order Comment: Name Collection Type:: Clean-Voided Midstream Performed By: #### B UN #### [address] Protein,Urine Negative Normal Negative [facility] Comment on above: Order Comment: Name Collection Type:: Clean-Voided Midstream Performed By: #### B UN #### [address] Specificy [place],Urine 1.022 Normal 1.001-1.030 [facility] Comment on above: Order Comment: Name Collection Type:: Clean-Voided Midstream Performed By: #### B UN #### [address] Urobilinogen,Urine 2 mg/dL Normal Normal [facility] Comment on above: Order Comment: Name Collection Type:: Clean-Voided Midstream Performed By: #### B UN #### [facility] [address] Basic Metabolic Panelon 10-0 Anion gap [Moles/Vol] 13.2 mmol/L Normal 6.0-15.0 [facility] Comment on above: Performed By: #### C BC, CMP #### [facility] [address] [place] [address] [place] Calcium [Mass/Vol] 9.3 mg/dL Normal 8.6-10.3 [facility] Comment on above: Performed By: #### C BC, CMP #### [facility] [address] [place] [address] [place] Chloride [Moles/Vol] 102 mmol/L Normal 98-107 [facility] Comment on above: Performed By: #### C BC, CMP #### [address] CO2 [Moles/Vol] 21.0 mmol/L Normal 21.0-31.0 [facility] Comment on above: Performed By: #### C BC, CMP #### [place] [address] [place] Creatinine [Mass/Vol] 1.16 mg/dL Normal 0.60-1.20 [facility] Comment on above: Performed By: #### C BC, CMP #### [place] [address] [place] Creatinine Clr Calc Pharmacy 64.00 Normal [facility] Comment on above: Performed By: #### C BC, CMP #### [place] [id number] [place] GFR/1.73 sq M.predicted MDRD (S/P/Bld) [Vol rate/Area] 57.795 mL/min/{1.73_m2} Normal [facility] Comment on above: Performed By: #### C BC, CMP #### [address] Glucose [Mass/Vol] 233 mg/dL High 70-100 [facility] Comment on above: Result Comment: [place] Glucose Reference Range is dependent on time and content of last meal. Glucose of more than 200 mg/dL in a nonstressed, ambulatory subject supports the diagnosis of Diabetes Mellitus. ADA recommended reference range Performed By: #### C BC, CMP #### [address] Potassium [Moles/Vol] 4.2 mmol/L Normal 3.5-5.1 [facility] Comment on above: Performed By: #### C BC, CMP #### [address] Sodium [Moles/Vol] 132 mmol/L Low 136-145 [facility] Comment on above: Performed By: #### C BC, CMP #### [address] Urea nitrogen [Mass/Vol] 30 mg/dL High 7-25 [facility] Comment on above: Performed By: #### C BC, CMP #### [address] Blood Cultureon 08-10-2025 Bacteria identified Cx Nom (Bld) No Growth 4 Days PERFORMED BY: [place] [address] PATHOLOGIST COOPERER BAMBI VANG M.D. Normal [facility] Comment on above: Performed By: #### L H, CPEP, ACTH, IGF-1, GH #### [facility] , #### LIPID, [id number], VLADIMIR, FSH, LDLD, RENAL, PRL #### [address] Bacteria identified Cx Nom (Bld) No Growth 4 Days PERFORMED BY: [place] [address] PATHOLOGIST COOPERER BAMBI VANG M.D. Normal [facility] Comment on above: Performed By: #### L H, CPEP, ACTH, IGF-1, GH #### [facility] , #### LIPID, [id number], VLADIMIR, FSH, LDLD, RENAL, PRL #### [facility] [address] [place] [address] [facility] CT abdomen pelvis wo conon 1 CT abdomen pelvis wo con [facility] [place] [address] [place] [id number] Scan Report Signed Patient: Hien Lam MR#: [id number] : 1975 Acct:[id number] Age/Sex: 49 / F ADM Date: 08/10/25 Loc: Room: 9G7756-0 Type: ADM IN Attending Dr: Yoli Waterman MD Copies to: Samuel Church MD, RES Yoli Waterman MD Ordering Provider: Samuel Church MD, RES Date of Service: 08/10/25 CT/CT abdomen pelvis wo con: Non healing ulcer for a month, T2DM CT Abdomen and Pelvis withcontrast TECHNIQUE: Axial imaging with 2-D reconstruction. The CT exam was performed using one or more the following dose reduction techniques: Automated exposure control, adjustment of the MA and/or Kv according to patient size, or use of the iterative reconstruction technique. COMPARISON: 12/10/2019 History: Chronic nonhealing ulcer involving the abdominal wall. One month duration. LIMITATIONS: None LOWER THORAX Unremarkable LIVER: Hepatic steatosis GALLBLADDER: Cholecystectomy clips identified. BILE DUCTS: No dilatation SPLEEN: Unremarkable PANCREAS: Unremarkable ADRENAL GLANDS: Unremarkable KIDNEYS:No obstructive uropathy or nephrolithiasis. Nonspecific perinephric stranding. AORTA: No abdominal aortic aneurysm identified. RETROPERITONEUM: No significant retroperitoneal abnormalities identified. MESENTERY:Unremarkable STOMACH:Unremarkable SMALL BOWEL: The small bowel loops are nondistended. APPENDIX: Suspected appendectomy COLON: Unremarkable URINARY BLADDER: Urinary bladder is unremarkable. REPRODUCTIVE SYSTEM: Reproductive structures are unremarkable. PNEUMOPERITONEUM: None PERITONEAL FLUID:None BONY STRUCTURES: Unremarkable ABDOMINAL WALL: No fluid collections. No subcutaneous air. No herniation. CT/CT abdomen pelvis wo con IMPRESSION: No acute inflammatory changes. No abdominal wall herniation, fluid collection or subcutaneous air. Impression dictated by: El Jay M.D. 08/10/2025 11:41 PM Dictation Location: [employer] Transcribed By: CUBA 08/10/25 2341 Dictated By: El Jay DO 08/10/25 2334 Signed By: 08/10/25 2341 Normal [facility] LDH Lactate Dehydrogenaseon 08-10-2025 LDH Lactate Dehydrogenase 241 U/L Normal 140-271 [facility] Comment on above: Result Comment: PERF ORMED BY: [place] [address] PATHOLOGIST COOPERER BAMBI VANG M.D. Performed By: #### C BC, CMP #### [address] Scan and CBCon 08-10-2025 Basophils (Bld) [#/Vol] 0.0 10*3/uL Normal 0.0-0.2 [facility] Comment on above: Result Comment: PERF ORMED BY: [place] [address] PATHOLOGIST COOPERER BAMBI VANG M.D. Performed By: #### C BC, CMP #### [address] Basophils/100 WBC (Bld) 0.5 % Normal . [facility] Comment on above: Performed By: #### C BC, CMP #### [address] Eosinophils (Bld) [#/Vol] 0.0 10*3/uL Normal 0.0-0.45 [facility] Comment on above: Performed By: #### C BC, CMP #### [address] Eosinophils/100 WBC (Bld) 0.4 % Normal . [facility] Comment on above: Performed By: #### C BC, CMP #### [address] Erythrocyte distribution width (RBC) [Ratio] 14.2 % Normal 11.9-15.3 [facility] Comment on above: Performed By: #### C BC, CMP #### [address] Hematocrit (Bld) [Volume fraction] 39.1 % Normal 34.0-46.4 [facility] Comment on above: Performed By: #### C BC, CMP #### [address] Hemoglobin (Bld) [Mass/Vol] 13.2 g/dL Normal 11.8-15.4 [facility] Comment on above: Performed By: #### C BC, CMP #### [address] Lymphocytes (Bld) [#/Vol] 2.7 10*3/uL Normal 1.00-4.8 [facility] Comment on above: Performed By: #### C BC, CMP #### [address] Lymphocytes/100 WBC (Bld) 59.1 % Normal . [facility] Comment on above: Performed By: #### C BC, CMP #### [address] MCH (RBC) [Entitic mass] 33.0 pg Normal 24.7-34.3 [facility] Comment on above: Performed By: #### C BC, CMP #### [address] MCV (RBC) [Entitic vol] 97.4 fL Normal 80-100 [facility] Comment on above: Performed By: #### C BC, CMP #### [address] Mean Corpuscular HGB Conc 33.9 g/dL Normal 32.0-35.0 [facility] Comment on above: Performed By: #### C BC, CMP #### [address] Monocytes (Bld) [#/Vol] 0.1 10*3/uL Normal 0.0-0.8 [facility] Comment on above: Performed By: #### C BC, CMP #### [address] Monocytes/100 WBC (Bld) 37.65 % High 0.00-20.00 [facility] Comment on above: Result Comment: For adults in ED, MDW > 20.0 may be associated with a higher risk of sepsis during the first 12 hrs of hospital admission Performed By: #### C BC, CMP #### [place] [address] [place] Monocytes/100 WBC (Bld) 2.8 % Normal . [facility] Comment on above: Performed By: #### C BC, CMP #### [place] [address] [place] Neutrophils (Bld) [#/Vol] 1.7 10*3/uL Low 1.8-7.7 [facility] Comment on above: Performed By: #### C BC, CMP #### [place] [address] [place] Neutrophils/100 WBC (Bld) 37.2 % Normal . [facility] Comment on above: Performed By: #### C BC, CMP #### [place] [address] [place] NRBC% 0.2 /100{WBC} Normal 0-0.5 [facility] Comment on above: Performed By: #### C BC, CMP #### [address] Platelet Estimate Decreased Normal Normal [facility] Comment on above: Performed By: #### C BC, CMP #### [place] [address] [place] Platelet mean volume (Bld) [Entitic vol] 7.7 fL Normal 6.3-10.7 [facility] Comment on above: Performed By: #### C CHRISTIAN, CMP #### [address] Platelet Morphology Normal Normal Normal [facility] Comment on above: Result Comment: PERF ORMED BY: [place] [address] PATHOLOGIST COOPERER BAMBI VANG M.D. Performed By: #### C BC, CMP #### [facility] [address] Platelets (Bld) [#/Vol] 29 10*3/uL Off scale low 150-450 [facility] Comment on above: Result Comment: Crit ical value result called at 2102 on 08/10/25 Performed By: #### C BC, CMP #### [address] RBC (Bld) [#/Vol] 4.01 10*6/uL Normal 3.60-5.00 [facility] Comment on above: Performed By: #### C BC, CMP #### [address] Tear Drop Cells Slight Normal [facility] Comment on above: Performed By: #### C BC, CMP #### [address] WBC (Bld) [#/Vol] 4.5 10*3/uL Normal 3.8-11.6 [facility] Comment on above: Performed By: #### C BC, CMP #### [address] White Blood Count 4.5 [CFU]/mL Normal 3.8-11.6 [facility] Comment on above: Performed By: #### C BC, CMP #### [address] Superficial Wound Cultureon 08-10-2025 Superficial Wound Culture ORGANISM: Corynebacterium meirikeium (O:CORJEI) Comments Organism Not Routinely Tested for Susceptibilities Quantity of Growth Light Growth Gram Negative Bacilli removed from report on 08/12/25. * This is a corrected result. * A prior result that was reported as final has been changed. PERFORMED BY: [place] [address] PATHOLOGIST COOPERER BAMBI VANG M.D. Normal [facility] Comment on above: Performed By: #### C BC, CMP #### [address] Superficial Wound Culture ORGANISM: Corynebacterium jeikeium (O:CORJEI) Comments Organism Not Routinely Tested for Susceptibilities Quantity of Growth Moderate Growth ORGANISM: Pseudomonas aeruginosa (O:PSEAER) Quantity of Growth Rare Growth PERFORMED BY: [place] [address] PATHOLOGIST COOPERER BAMBI VANG M.D. Normal [facility] Comment on above: Performed By: #### B UN #### [address] Superficial Wound Culture ORGANISM: Pseudomonas aeruginosa (O:PSEAER) Quantity of Growth Light Growth Aerobic SHAYY Charge (NMIC56) SUSCEPTIBILITY ORGANISM: O:PSEAER ANTIBIOTIC INTERPRETATION SHAYY Amikacin S <16 Aztreonam I 8 Cefepime S <2 Ceftazidime I 4 Ceftazidime/Avibactam S <4 Ceftolozane/Tazobactam S <2 Ciprofloxacin S <0.25 Gentamicin S <2 Levofloxacin I 2 Meropenem S <1 Piperacillin/Tazobactam I <8 Tobramycin S <2 S = SUSCEPTIBLE I = INTERMEDIATE R = RESISTANT BLANK = DATA NOT AVAILABLE, OR DRUG NOT ADVISABLE OR TESTED R* = RESISTANCE DUE TO EXTENDED SPECTRUM BETA-LACTAMASES ESBL = EXTENDED SPECTRUM BETA-LACTAMASE TFG = THYMIDINE-DEPENDENT STRAIN GASTON = BETA-LACTAMASE POSITIVE IB = INDUCIBLE BETA-LACTAMASE. APPEARS IN PLACE OF 'S' WITH SPECIES KNOWN TO POSSESS INDUCIBLE BETA-LACTAMASES. POTENTIALLY THEY MAY BECOME RESISTANT TO ALL B-LACTAM DRUGS. PERFORMED BY: [address] [place] [address] PATHOLOGIST COOPERER BAMBI VANG M.D. Normal [facility] Comment on above: Performed By: #### B UN #### [address] Complete Blood Count Auto Di ffon 07-31-2025 Basophils (Bld) [#/Vol] 0.0 10*3/uL Normal 0.0-0.2 [facility] Comment on above: Order Comment: Maribel mishra Patient name got no response AB 1942 Result Comment: PERF ORMED BY: [place] [address] PATHOLOGIST COOPERER BAMBI VANG M.D. Performed By: #### C BC, CMP #### [address] Basophils/100 WBC (Bld) 0.6 % Normal . [facility] Comment on above: Order Comment: Maribel misrha Patient name got no response AB 1941 Performed By: #### C BC, CMP #### [address] Eosinophils (Bld) [#/Vol] 0.0 10*3/uL Normal 0.0-0.45 [facility] Comment on above: Order Comment: Maribel mishra Patient name got no response AB 194 Performed By: #### C BC, CMP #### [address] Eosinophils/100 WBC (Bld) 0.5 % Normal . [facility] Comment on above: Order Comment: Maribel mishra Patient name got no response AB 1942 Performed By: #### C BC, CMP #### [address] Erythrocyte distribution width (RBC) [Ratio] 14.4 % Normal 11.9-15.3 [facility] Comment on above: Order Comment: Maribel mishra Patient name got no response AB 1942 Performed By: #### C BC, CMP #### [place] [address] [place] Hematocrit (Bld) [Volume fraction] 43.1 % Normal 34.0-46.4 [facility] Comment on above: Order Comment: Maribel mishra Patient name got no response AB 2 Performed By: #### C BC, CMP #### [address] Hemoglobin (Bld) [Mass/Vol] 14.7 g/dL Normal 11.8-15.4 [facility] Comment on above: Order Comment: Maribel mishra Patient name got no response AB 1942 Performed By: #### C BC, CMP #### [address] Lymphocytes (Bld) [#/Vol] 3.7 10*3/uL Normal 1.00-4.8 [facility] Comment on above: Order Comment: Maribel mishra Patient name got no response AB 1941 Performed By: #### C BC, CMP #### [address] Lymphocytes/100 WBC (Bld) 56.2 % Normal . [facility] Comment on above: Order Comment: Maribel mishra Patient name got no response AB 1941 Performed By: #### C BC, CMP #### [address] MCH (RBC) [Entitic mass] 33.2 pg Normal 24.7-34.3 [facility] Comment on above: Order Comment: Maribel mishra Patient name got no response AB 2 Performed By: #### C BC, CMP #### [address] MCV (RBC) [Entitic vol] 97.2 fL Normal 80-100 [facility] Comment on above: Order Comment: Maribel mishra Patient name got no response AB 2 Performed By: #### C BC, CMP #### [address] Mean Corpuscular HGB Conc 34.2 g/dL Normal 32.0-35.0 [facility] Comment on above: Order Comment: Maribel mishra Patient name got no response AB 1942 Performed By: #### C BC, CMP #### [place] [id number] [place] Monocytes (Bld) [#/Vol] 0.1 10*3/uL Normal 0.0-0.8 [facility] Comment on above: Order Comment: Maribel mishra Patient name got no response AB 1942 Performed By: #### C BC, CMP #### [place] [address] [place] Monocytes/100 WBC (Bld) 32.13 % High 0.00-20.00 [facility] Comment on above: Order Comment: Maribel mishra Patient name got no response AB 1942 Result Comment: For adults in ED, MDW > 20.0 may be associated with a higher risk of sepsis during the first 12 hrs of hospital admission Performed By: #### C BC, CMP #### [place] [address] [place] Monocytes/100 WBC (Bld) 2.2 % Normal . [facility] Comment on above: Order Comment: Maribel mishra Patient name got no response AB 1941 Performed By: #### C BC, CMP #### [place] [address] [place] Neutrophils (Bld) [#/Vol] 2.7 10*3/uL Normal 1.8-7.7 [facility] Comment on above: Order Comment: Maribel mishra Patient name got no response AB 1941 Performed By: #### C BC, CMP #### [place] [id number] [place] Neutrophils/100 WBC (Bld) 40.5 % Normal . [facility] Comment on above: Order Comment: Maribel mishra Patient name got no response AB 1942 Performed By: #### C BC, CMP #### [place] [address] [place] NRBC% 0.5 /100{WBC} Normal 0-0.5 [facility] Comment on above: Order Comment: Maribel mishra Patient name got no response AB 1942 Performed By: #### C BC, CMP #### [place] [id number] [place] Platelet mean volume (Bld) [Entitic vol] 7.8 fL Normal 6.3-10.7 [facility] Comment on above: Order Comment: Maribel mishra Patient name got no response AB 1942 Performed By: #### C BC, CMP #### [address] Platelets (Bld) [#/Vol] 69 10*3/uL Low 150-450 [facility] Comment on above: Order Comment: Maribel mishra Patient name got no response AB 1942 Performed By: #### C BC, CMP #### [address] RBC (Bld) [#/Vol] 4.43 10*6/uL Normal 3.60-5.00 [facility] Comment on above: Order Comment: Maribel mishra Patient name got no response AB 2 Performed By: #### C BC, CMP #### [address] WBC (Bld) [#/Vol] 6.7 10*3/uL Normal 3.8-11.6 [facility] Comment on above: Order Comment: Maribel mishra Patient name got no response AB 2 Performed By: #### C BC, CMP #### [address] White Blood Count 6.7 [CFU]/mL Normal 3.8-11.6 [facility] Comment on above: Order Comment: Maribel mishra Patient name got no response AB 1942 Performed By: #### C BC, CMP #### [address] Comprehensive Metabolic Pane david 07-31-2025 Albumin [Mass/Vol] 4.1 g/dL Normal 3.5-5.7 [facility] Comment on above: Order Comment: Maribel mishra Patient name got no response AB 1942 Performed By: #### C BC, CMP #### [address] Albumin/Globulin [Mass ratio] 1.3 {ratio} Normal [facility] Comment on above: Order Comment: Maribel mishra Patient name got no response AB 1941 Performed By: #### C BC, CMP #### [place] [id number] [facility] ALP [Catalytic activity/Vol] 65 U/L Normal 34-104 [facility] Comment on above: Order Comment: Maribel mishra Patient name got no response AB 1941 Performed By: #### C BC, CMP #### [place] [id number] [place] ALT [Catalytic activity/Vol] 21 U/L Normal 7-52 [facility] Comment on above: Order Comment: Maribel mishra Patient name got no response AB 1941 Performed By: #### C BC, CMP #### [address] Anion gap [Moles/Vol] 12.1 mmol/L Normal 6.0-15.0 [facility] Comment on above: Order Comment: Maribel mishra Patient name got no response AB 1941 Performed By: #### C BC, CMP #### [place] [address] [place] AST [Catalytic activity/Vol] 16 U/L Normal 13-39 [facility] Comment on above: Order Comment: Maribel mishra Patient name got no response AB 1941 Performed By: #### C BC, CMP #### [place] [id number] [place] Bilirubin [Mass/Vol] 0.4 mg/dL Normal 0.3-1.0 [facility] Comment on above: Order Comment: Maribel mishra Patient name got no response AB 1941 Performed By: #### C BC, CMP #### [place] [id number] [place] Calcium [Mass/Vol] 10.1 mg/dL Normal 8.6-10.3 [facility] Comment on above: Order Comment: Maribel mishra Patient name got no response AB 2 Performed By: #### C BC, CMP #### [place] [id number] [place] Chloride [Moles/Vol] 107 mmol/L Normal 98-107 [facility] Comment on above: Order Comment: Maribel mishra Patient name got no response AB 1941 Performed By: #### C BC, CMP #### [address] CO2 [Moles/Vol] 21.5 mmol/L Normal 21.0-31.0 [facility] Comment on above: Order Comment: Maribel mishra Patient name got no response AB 1941 Performed By: #### C BC, CMP #### [place] [id number] [facility] Creatinine [Mass/Vol] 1.36 mg/dL High 0.60-1.20 [facility] Comment on above: Order Comment: Maribel mishra Patient name got no response AB 1941 Performed By: #### C BC, CMP #### [address] Creatinine Clr Calc Pharmacy 56.02 Normal [facility] Comment on above: Order Comment: Maribel mishra Patient name got no response AB 1941 Result Comment: PERF ORMED BY: [place] [address] PATHOLOGIST COOPERER BAMBI VANG M.D. Performed By: #### C BC, CMP #### [place] [address] [place] GFR/1.73 sq M.predicted MDRD (S/P/Bld) [Vol rate/Area] 47.752 mL/min/{1.73_m2} Normal [facility] Comment on above: Order Comment: Maribel mishra Patient name got no response AB 1941 Performed By: #### C BC, CMP #### [place] [address] [place] Globulin (S) [Mass/Vol] 3.2 g/dL Normal [facility] Comment on above: Order Comment: Maribel mishra Patient name got no response AB 1941 Performed By: #### C BC, CMP #### [place] [address] [place] Glucose [Mass/Vol] 110 mg/dL High 70-100 [facility] Comment on above: Order Comment: Maribel mishra Patient name got no response AB 1941 Result Comment: [place] Glucose Reference Range is dependent on time and content of last meal. Glucose of more than 200 mg/dL in a nonstressed, ambulatory subject supports the diagnosis of Diabetes Mellitus. ADA recommended reference range Performed By: #### C BC, CMP #### [address] Potassium [Moles/Vol] 4.6 mmol/L Normal 3.5-5.1 [facility] Comment on above: Order Comment: Maribel mishra Patient name got no response AB 1941 Performed By: #### C BC, CMP #### [address] Protein [Mass/Vol] 7.3 g/dL Normal 6.4-8.9 [facility] Comment on above: Order Comment: Maribel mishra Patient name got no response AB 1941 Performed By: #### C BC, CMP #### [address] Sodium [Moles/Vol] 136 mmol/L Normal 136-145 [facility] Comment on above: Order Comment: Maribel mishra Patient name got no response AB 1941 Performed By: #### C BC, CMP #### [place] [id number] [facility] Urea nitrogen [Mass/Vol] 26 mg/dL High 7-25 [facility] Comment on above: Order Comment: Maribel mishra Patient name got no response AB 1941 Performed By: #### C BC, CMP #### [address] Superficial Wound Cultureon 07-31-2025 Superficial Wound Culture ORGANISM: Pseudomonas aeruginosa (O:PSEAER) Quantity of Growth Rare Growth Aerobic SHAYY Charge (NMIC56) SUSCEPTIBILITY ORGANISM: O:PSEAER ANTIBIOTIC INTERPRETATION SHAYY Amikacin S <16 Aztreonam I <4 Cefepime S <2 Ceftazidime I 4 Ceftazidime/Avibactam S <4 Ceftolozane/Tazobactam S <2 Ciprofloxacin S <0.25 Gentamicin S <2 Levofloxacin S <0.5 Meropenem S <1 Piperacillin/Tazobactam I <8 Tobramycin S <2 S = SUSCEPTIBLE I = INTERMEDIATE R = RESISTANT BLANK = DATA NOT AVAILABLE, OR DRUG NOT ADVISABLE OR TESTED R* = RESISTANCE DUE TO EXTENDED SPECTRUM BETA-LACTAMASES ESBL = EXTENDED SPECTRUM BETA-LACTAMASE TFG = THYMIDINE-DEPENDENT STRAIN GASTON = BETA-LACTAMASE POSITIVE IB = INDUCIBLE BETA-LACTAMASE. APPEARS IN PLACE OF 'S' WITH SPECIES KNOWN TO POSSESS INDUCIBLE BETA-LACTAMASES. POTENTIALLY THEY MAY BECOME RESISTANT TO ALL B-LACTAM DRUGS. PERFORMED BY: [place] [address] PATHOLOGIST COOPERER BAMBI VANG M.D. Normal [facility] Comment on above: Performed By: #### B UN #### [place] [id number] [facility] ED Clinical Summaryon 2024 ED Clinical Summary ED Clinical Summary [place] [id number] ED Clinical Summary Person Information Name: HIEN LAM [facility] Age: 49 Years : 1975 Sex: Female Language: Gabonese PCP: Mindy Morgan MD Marital Status: Single Visit Id: Visit Reason: Headache; Medical problem - minor; Leg pain-swelling; RT LEG PAIN Speciality: Acuity: 3 Enc Type: Emergency Med Service: Emergency Arrival: 07/22/2025 13:12:36 Discharge: 07/22/2025 14:03:26 LOS: 000 00:51 Checkin: 07/22/2025 13:12:36 Checkout: 07/22/2025 14:03:26 Dispo Type: Home (Routine DC) EVENTS: Event Name Event Status Request Date/Time Start Date/Time Complete Date/Time Arrive Complete 07/22/2025 13:12:36 07/22/2025 13:12:36 07/22/2025 13:12:36 Document Home Meds Request 07/22/2025 13:12:36 Triage Complete 07/22/2025 13:12:36 07/22/2025 13:24:12 07/22/2025 13:24:12 Bed Assign Complete 07/22/2025 13:14:32 07/22/2025 13:14:32 07/22/2025 13:14:32 Dr Exam Complete 07/22/2025 13:14:32 07/22/2025 13:16:17 07/22/2025 13:16:17 RN Exam Complete 07/22/2025 13:14:32 07/22/2025 13:25:26 07/22/2025 13:25:26 Registration Complete 07/22/2025 13:15:34 07/22/2025 13:15:34 07/22/2025 13:15:34 Reg Complete Request 07/22/2025 13:15:34 Reg Bed Request Complete 07/22/2025 13:15:34 07/22/2025 13:15:34 07/22/2025 13:15:34 Registration Request 07/22/2025 13:16:17 Dr Exam Complete 07/22/2025 13:16:22 07/22/2025 13:16:22 07/22/2025 13:16:22 Isolation Screening Request 07/22/2025 13:24:12 Discharge Complete 07/22/2025 13:55:51 07/22/2025 14:03:34 07/22/2025 14:03:34 Transfer Complete 07/22/2025 14:03:34 07/22/2025 14:03:34 07/22/2025 14:03:34 ADDRESS: [address] [place] [phone] PHYS DOC NOTES: MEDICAL INFORMATION: Prescriptions Given: New Medications [id number], [address], [place] [id number], [phone] nystatin topical (Nystop 100,000 units/g topical powder) 1 Application Topical 2 times a day. Refills: 0. Medications to Continue Taking That Have Changed [id number], [address], [place] [id number], [phone] START: naproxen (Naprosyn 500 mg Tab) 1 Tablets By Mouth 2 times a day. Refills: 0. Other Medications START: naproxen (Naprosyn 500 mg Tab) 1 Tablets By Mouth 2 times a day. Refills: 0. START: naproxen (Naprosyn 500 mg Tab) 1 Tablets By Mouth 2 times a day as needed for pain. Refills: 0. Medications to Continue with No Changes Other Medications albuterol (albuterol 0.083% Inh Tiffanie 3 mL) 3 Milliliter Inhalation every 6 hours. Q6H and PRN. albuterol (albuterol CFC free 90 mcg/inh Inh Aer w/Adapt 8 gm (Ventolin)) 2 Puffs Inhalation 4 times a day. Refills: 0. aspirin (aspirin 81 mg Oral EC Tab) 1 Tablets By Mouth every day. atorvastatin (Lipitor 20 mg Tab) 2 Tablets By Mouth every day. 40 mg. azithromycin (azithromycin 250 mg Tab) 250 Milligram By Mouth As Directed. Take two tabs by mouth on day one, then one tab daily. Refills: 0. cephalexin (cephalexin 500 mg Cap) 1 Capsules By Mouth 4 times a day. Refills: 0. ergocalciferol (Vitamin D2 2000 intl units oral capsule) ertugliflozin (Steglatro 15 mg oral tablet) fenofibrate (fenofibrate 145 mg Tab) 1 Tablets By Mouth every day. fluconazole (Diflucan 150 mg Tab) 1 tab(s) Oral Once after antibiotics. Refills: 0. gabapentin (gabapentin 800 mg Tab) 1 Tablets By Mouth 4 times a day. ibuprofen (ibuprofen 600 mg Tab) 1 Tablets By Mouth every 6 hours as needed as needed for pain. Refills: 0. insulin isophane-insulin regular (NovoLIN 70/30 FlexPen subcutaneous suspension) lidocaine topical (lidocaine Top 5% film Patch) 1 Patches Topical every day. apply 12 hours on and 12 hours off daily. Refills: 0. lisinopril (lisinopril 5 mg Tab) 1 Tablets By Mouth every day. mifepristone (Korlym 300 mg oral tablet) 1 Tablets By Mouth every day. mupirocin topical (mupirocin Top 2% Oint) 1 Application Topical 3 times a day. Refills: 0. mupirocin topical (mupirocin Top 2% Oint) 1 Application Topical 3 times a day. Refills: 0. pantoprazole (Protonix 40 mg Tab-DR) 1 Tablets By Mouth every day. spironolactone (spironolactone 25 mg Tab) tiotropium (Spiriva Respimat 28 ACT 2.5 mcg/inh inhalation aerosol) topiramate (Topamax 200 mg Tab) 1 Tablets By Mouth 2 times a day. valacyclovir (Valtrex) 500 Milligram By Mouth every day. PATIENT EDUCATION INFORMATION: Instructions: Skin Yeast Infection; Chronic Knee Pain, Adult Follow up: With: Address: When: Mindy Morgan [address] [place] [address], [address] [place] [phone] Business (1) In 3 days 07/25/2025 DIAGNOSIS: Fungal infection of skin of abdomen; Knee pain, chronic; Other chronic pain Normal [facility] ED Note-Physicianon 07-22-20 ED Note-Physician ED Note-Physician Basic Information Time Seen: Henry Rosenthal PA-C 07/22/2025 13:16 Chief Complaint pt presents to the ER d/t R leg pain that started a couple days ago . per pt is having difficulty to walking and putting pressure on her leg. pt states she has had a headache for a week as well History of Present Illness 49-year-old female comes to the ED for evaluation of right knee pain. She states she has chronic problems with her knees. She does follow with orthopedics. There has been talk of doing knee replacements. She has been having worsening pain over the last several days interfering with her sleep. She taken some Ultram without relief. She has had no trauma to the area. No weakness or paresthesias. No fevers. Review of Systems A 10 point review of systems is negative except as noted above. Medical and Surgical History: Reviewed and noted Social history: Lives at home Tobacco: Denies Physical Exam Vitals & Measurements T: 36.6 ???C(Oral) HR: 71(Peripheral) RR: 18 BP: 135/73 SpO2: 98% HT: 165 cm WT: 99.8 kg BMI: 36.66 Nurses notes and vital signs reviewed and patient is not hypoxic. General: The patient appears well, resting comfortably. Skin: Warm, dry. Head: Atraumatic. Neck: No JVD. Eye: Normal conjunctiva. Ears, Nose, Mouth, and Throat: Moist mucous membranes. Cardiovascular: Strong distal pulses. Chest wall: Respiratory: Respirations are nonlabored. Back: Normal range of motion. Musculoskeletal: Generalized tenderness to the right knee. No soft tissue swelling ecchymosis or erythema. No joint effusion. Good range of motion. No calf tenderness. Gastrointestinal: Urological: Neurological: Awake and alert. No focal deficits. Follows commands. Psychiatric: Cooperative. Medical Decision Making Patient presents with acute on chronic knee pain. She follows with orthopedics for this. Given a dose of Percocet he will be discharged home on Naprosyn. She also reports a rash to her abdomen. She has a history of fungal infections. She does have some moisture and minimal erythematous skin breakdown to the abdominal folds. Will start her on topical nystatin powder and she is to follow-up with her PCP. Patient was encouraged to return to the ED if symptoms worsen or change. Assessment/Plan Fungal infection of skin of abdomen (B36.9: Superficial mycosis, unspecified) Knee pain, chronic (M25.569: Pain in unspecified knee) Other chronic pain (G89.29: Other chronic pain) Orders: nystatin topical, 1 tramaine, Topical, BID, 60 gram, Refill(s) 0, [id number], 165, cm, 07/22/25 13:24:00 EDT, Height/Length Dosing, 99.8, kg, 07/22/25 13:24:00 EDT, Weight Dosing Disposition Plan Patient Discharge Condition Disposition: Discharged home Condition: Improved and stable Counseled: Patient and/or family were counseled to workup, results, treatment plan and follow-up recommendations Discharge Prescription List Prescriptions Naprosyn 500 mg Tab, 500 mg= 1 tab(s), Oral, BID Nystop 100,000 units/g topical powder, 1 tramaine, Topical, BID Follow-up With When Contact Information Mindy Morgan In 3 days 07/25/2025 EDT [address] [place] [phone]- Business (1) Additional Instructions: Patient Education Skin Yeast Infection Chronic Knee Pain, Adult Attestation I performed a substantive part of the MDM during the patient???s E/M visit. I personally made or approved the documented management plan and acknowledge its risk of complications. (Independent Interpretation) My (EKG/X-Ray/US/CT) interpretation as above. (Discussion) Management/test interpretation discussed with APC. This report was transcribed using voice recognition software. Every effort was made to ensure accuracy, however, inadvertently computerized special events manager mistakes may be present. Appropriate healthcare PPE was used in evaluating this patient. 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 Medications Inpatient No active inpatient medications Home albuterol 0.083% Inh Tiffanie 3 mL, 2.5 mg= 3 mL, Inhalation, q6hr albuterol CFC free 90 mcg/inh Inh Aer w/Adapt 8 gm (Ventolin), 2 puff(s), Inhalation, QID aspirin 81 mg Oral EC Tab, 81 mg= 1 tab(s), Oral, Daily azithromycin 250 mg Ta (more content not included)... Normal [facility] Comment on above: Result Comment: Elec tronically Signed By: Henry Rosenthal PA-C\.br\Date and Time Signed: 07/22/25 13:57 EDT\.br\Electronically Co-Signed By: Preet Ernst DO\.br\Date and Time Co-Signed: 07/22/25 14:40 EDT ED Patient Summaryon 025 ED Patient Summary ED Patient Summary [place] [id number] Patient Discharge Instructions Person Information Name: HIEN LAM Age: 49 Years Arrival Date: 07/22/2025 13:12:36 Discharge Diagnosis: Fungal infection of skin of abdomen; Knee pain, chronic; Other chronic pain Primary Care Physician: Mindy Morgan MD Provider Information Primary Provider: Preet Ernst DO Advanced Field Service Engineer:Henry Rosenthal PA-C The exam and treatment you received in the Emergency Department were for an urgent problem and are not intended as complete care. It is important that you follow up with a doctor, nurse practitioner, or physician???s medical receptionist medical assistant for ongoing care. If your symptoms become worse or you do not improve as expected and you are unable to reach your usual health care provider, you should return to the Emergency Department. We are available 24 hours a day. HIEN LAM has been given the following list of patient education materials, prescriptions and follow-up instructions: Follow-up Instructions: With: Address: When: Mindy Morgan [address] [place] [address]., [address] [place] [id number] Business (1) In 3 days 07/25/2025 In the event that this physician does not participate in your insurance network, please consult with your insurance company to find a nearby participating provider. Patient Education Materials: Skin Yeast Infection; Chronic Knee Pain, Adult A MESSAGE TO ALL PATIENTS REGARDING OPIOIDS PRESCRIPTION OPIOIDS: WHAT YOU NEED TO KNOW Prescription opioids can be used to help relieve kougfcgl-kg-tinajp pain and are often prescribed following a surgery or injury, or for certain health conditions. These medications can be an important part of the treatment but also come with serious risks. It is important to work with your healthcare provider to make sure you are getting the safest, most effective care. WHAT ARE THE RISKS AND SIDE EFFECTS OF OPIOID USE? Prescription opioids carry serious risks of addiction and overdose, especially with prolonged use. An opioid overdose, often marked by slowed breathing, can cause sudden . The use of prescription opioids can have a number of side effects as well, even when taken as directed: ??? Tolerance???meaning you might need to take more of the medication for the same pain relief ??? Physical dependence???meaning you have symptoms of withdrawal when a medication is stopped ??? Increased sensitivity to pain ??? Constipation ??? Nausea, vomiting, and dry mouth ??? Sleepiness and dizziness ??? Confusion ??? Depression ??? Low levels of testosterone that can result in lower sex drive, energy, and strength ??? Itching and sweating RISKS ARE GREATER WITH: ??? History of drug misuse, substance use disorder, or overdose ??? Mental health conditions (such as depression or anxiety) ??? Sleep apnea ??? Older age (65 years and older) ??? Avoid alcohol while taking prescription opioids. Also, unless specifically advised by your health care provider, medications to avoid include: ??? Benzodiazepines (such as Xanax or Valium) ??? Muscle relaxants (such as Soma or Flexeril) ??? Hypnotics (such as Ambien or Lunesta) ??? Other prescription opioids KNOW YOUR OPTIONS Talk to your health care provider about ways to manage your pain that don???t involve prescription opioids. Some of these options may actually work better and have fewer risks and side effects. Options may include: ??? Pain relievers such as acetaminophen, ibuprofen, and naproxen ??? Some medication that are also used for depression or seizures ??? Physical therapy and exercise ??? Cognitive behavioral therapy, a psychological, goal-directed approach, in which patients learn how to modify physical, behavioral, and emotional triggers of pain and stress. IF YOU ARE PRESCRIBED OPIOIDS FOR PAIN: ??? Never take opioids in greater amounts or more often than prescribed. ??? Follow up with your primary health care provider. o Work together to create a plan on how to manage your pain. o Talk about ways to help manage your pain that don???t involve prescription opioids. o Talk about any and all concerns and side effects. ??? Help prevent misuse and abuse o Never sell or share prescription opioids. o Never use another person???s prescription opioids. ??? Store prescription opioids in a secure place and out of reach of others (this may include visitors, children, friends, and family). ??? Safely dispose of unused prescription opioids: Find your community drug take-back program or your pharmacy mail-back program, or flush them down the toilet, following guidance from the Food and Drug Administration (www.fda.gov/Drugs/Resour cesForYou). ??? Visit www.cdc.gov/drugoverdose to learn about the risks of opioids abuse and (more content not included)... Normal [facility] Glucose (Bld) [Mass/Vol]Orde red By: Mary Mendenhall on 07-18-2025 Glucose Blood, POC 160 mg/dL [facility] Laboratory - Hematology and Cell countson 07-18-2025 HbA1c (Bld) [Mass fraction] 8.1 % [facility] No Panel InformationOrdered By: Mary Mendenhall on 07-18-2025 [facility] Creatinineon 07-12-2025 Creatinine [Mass/Vol] 0.80 mg/dL Normal 0.60-1.20 [facility] Comment on above: Performed By: #### B UN #### [facility] [address] [place] [address] GFR/1.73 sq M.predicted MDRD (S/P/Bld) [Vol rate/Area] mL/min/{1.73_m2} Normal [facility] Comment on above: Result Comment: PERF ORMED BY: [place] [address] PATHOLOGIST COOPERER BAMBI VANG M.D. Performed By: #### B UN #### [facility] [address] [place] [address] VASC US ANKLE BRACHIAL INDEX (ROXY) WITHOUT EXERCISEon 07-11-2025 VAS US ANKLE BRACHIAL INDEX (ROXY) WITHOUT EXERCISE [place] [id number] Vascular Lab Report [facility] US ANKLE BRACHIAL INDEX (ROXY) WITHOUT EXERCISE Patient Name: HIEN Whitmore Physician: [id number] Noemi Davidson MD, RPVI Study Date: 07/11/2025 Ordering Provider: [id number] WESTBROOK MRN/PID: [id number] Fellow: Technologist: LITZY BRYANT RDMS, RVT Date of /Age: 11 1975 / 49 years Technologist 2: Gender: F Admission Status: Outpatient Location Performed: [facility] Diagnosis/ICD: Peripheral vascular disease, unspecified-I73.9 Pertinent History: Bilat leg pain. Diabetic. CONCLUSIONS: Right Lower PVR: Evidence of moderate arterial occlusive disease in the right lower extremity at rest. Decreased digital perfusion noted. Monophasic flow is noted in the right common femoral artery, right posterior tibial artery and right dorsalis pedis artery. Moderate disease based on waveforms. All dopplers were monophasic throughout right leg. Unable to obtain right toe pressures. Left Lower PVR: Evidence of moderate arterial occlusive disease in the left lower extremity at rest. Decreased digital perfusion noted. Monophasic flow is noted in the left common femoral artery, left posterior tibial artery and left dorsalis pedis artery. Moderate disease based on waveforms. Monophasic flow throughout the left leg. Unable to obtain left toe pressure. Imaging & Doppler Findings: RIGHT Lower PVR Pressures Ratios Right Posterior Tibial (Ankle) 72 mmHg 0.62 Right Dorsalis Pedis (Ankle) 53 mmHg 0.45 LEFT Lower PVR Pressures Ratios Left Posterior Tibial (Ankle) 89 mmHg 0.76 Left Dorsalis Pedis (Ankle) 62 mmHg 0.53 Right Left Brachial Pressure 117 mmHg 117 mmHg [id number] Noemi Davidson MD, RPVI Final CONCLUSIONS: Right Lower PVR: Evidence of moderate arterial occlusive disease in the right lower extremity at rest. Decreased digital perfusion noted. Monophasic flow is noted in the right common femoral artery, right posterior tibial artery and right dorsalis pedis artery. Moderate disease based on waveforms. All dopplers were monophasic throughout right leg. Unable to obtain right toe pressures. Left Lower PVR: Evidence of moderate arterial occlusive disease in the left lower extremity at rest. Decreased digital perfusion noted. Monophasic flow is noted in the left common femoral artery, left posterior tibial artery and left dorsalis pedis artery. Moderate disease based on waveforms. Monophasic flow throughout the left leg. Unable to obtain left toe pressure. Normal [facility] Cortisolon 07-10-2025 Cortisol 4.2 ug/dL Normal [facility] Comment on above: Result Comment: Letha valverde range: AM 6 - 24 ug/dl PM <10 ug/dl [facility] audio video mechanic and method: [employer] DXI, POLYCLONAL ANTIBODY CORTISOL ASSAY. PERFORMED BY: [facility] [place] [address] PATHOLOGIST COOPERER BAMBI VANG M.D. Performed By: #### L H, CPEP, ACTH, IGF-1, GH #### [facility] , #### LIPID, [id number], VLADIMIR, FSH, LDLD, RENAL, PRL #### [facility] [address] ED Clinical Summaryon 2024 ED Clinical Summary ED Clinical Summary [address] [address] ED Clinical Summary Person Information Name: HIEN LAM [place] Age: 49 Years : 1975 Sex: Female Language: Gabonese PCP: Mindy Morgan MD Marital Status: Single Visit Id: Visit Reason: Skin problem; Wound infection - uncomplicated; ULCERS Speciality: Acuity: 4 Enc Type: Emergency Med Service: Emergency Arrival: 07/06/2025 15:30:36 Discharge: 07/06/2025 16:46:56 LOS: 000 01:16 Checkin: 07/06/2025 15:30:36 Checkout: 07/06/2025 16:46:56 Dispo Type: Home (Routine DC) EVENTS: Event Name Event Status Request Date/Time Start Date/Time Complete Date/Time Arrive Complete 07/06/2025 15:30:36 07/06/2025 15:30:36 07/06/2025 15:30:36 Document Home Meds Request 07/06/2025 15:30:36 Triage Complete 07/06/2025 15:30:36 07/06/2025 15:39:54 07/06/2025 15:39:54 Isolation Screening Request 07/06/2025 15:39:54 RN Exam Complete 07/06/2025 15:41:12 07/06/2025 15:41:12 07/06/2025 15:41:12 Bed Assign Complete 07/06/2025 15:41:38 07/06/2025 15:41:38 07/06/2025 15:41:38 Dr Exam Complete 07/06/2025 15:41:38 07/06/2025 15:51:03 07/06/2025 15:51:03 Registration Complete 07/06/2025 15:51:03 07/06/2025 16:22:07 07/06/2025 16:22:07 Dr Exam Complete 07/06/2025 15:52:22 07/06/2025 15:52:22 07/06/2025 15:52:22 Reg Complete Request 07/06/2025 16:22:07 Reg Bed Request Complete 07/06/2025 16:22:07 07/06/2025 16:22:07 07/06/2025 16:22:07 Discharge Complete 07/06/2025 16:38:15 07/06/2025 16:47:11 07/06/2025 16:47:11 Transfer Complete 07/06/2025 16:47:11 07/06/2025 16:47:11 07/06/2025 16:47:11 ADDRESS: [address] [place] [id number] PHYS DOC NOTES: MEDICAL INFORMATION: Prescriptions Given: New Medications [id number], [address], [place] [id number], [phone] doxycycline (doxycycline monohydrate 100 mg oral tablet) 1 Tablets By Mouth 2 times a day for 10 Days. Refills: 0. fluconazole (Diflucan 150 mg Tab) 1 tab(s) Oral Once after antibiotics. Refills: 0. Medications to Continue with No Changes Other Medications albuterol (albuterol 0.083% Inh Tiffanie 3 mL) 3 Milliliter Inhalation every 6 hours. Q6H and PRN. albuterol (albuterol CFC free 90 mcg/inh Inh Aer w/Adapt 8 gm (Ventolin)) 2 Puffs Inhalation 4 times a day. Refills: 0. aspirin (aspirin 81 mg Oral EC Tab) 1 Tablets By Mouth every day. atorvastatin (Lipitor 20 mg Tab) 2 Tablets By Mouth every day. 40 mg. azithromycin (azithromycin 250 mg Tab) 250 Milligram By Mouth As Directed. Take two tabs by mouth on day one, then one tab daily. Refills: 0. cephalexin (cephalexin 500 mg Cap) 1 Capsules By Mouth 4 times a day. Refills: 0. ergocalciferol (Vitamin D2 2000 intl units oral capsule) ertugliflozin (Steglatro 15 mg oral tablet) fenofibrate (fenofibrate 145 mg Tab) 1 Tablets By Mouth every day. gabapentin (gabapentin 800 mg Tab) 1 Tablets By Mouth 4 times a day. ibuprofen (ibuprofen 600 mg Tab) 1 Tablets By Mouth every 6 hours as needed as needed for pain. Refills: 0. insulin isophane-insulin regular (NovoLIN 70/30 FlexPen subcutaneous suspension) lidocaine topical (lidocaine Top 5% film Patch) 1 Patches Topical every day. apply 12 hours on and 12 hours off daily. Refills: 0. lisinopril (lisinopril 5 mg Tab) 1 Tablets By Mouth every day. mifepristone (Korlym 300 mg oral tablet) 1 Tablets By Mouth every day. mupirocin topical (mupirocin Top 2% Oint) 1 Application Topical 3 times a day. Refills: 0. mupirocin topical (mupirocin Top 2% Oint) 1 Application Topical 3 times a day. Refills: 0. naproxen (Naprosyn 500 mg Tab) 1 Tablets By Mouth 2 times a day. Refills: 0. naproxen (Naprosyn 500 mg Tab) 1 Tablets By Mouth 2 times a day as needed for pain. Refills: 0. pantoprazole (Protonix 40 mg Tab-DR) 1 Tablets By Mouth every day. spironolactone (spironolactone 25 mg Tab) tiotropium (Spiriva Respimat 28 ACT 2.5 mcg/inh inhalation aerosol) topiramate (Topamax 200 mg Tab) 1 Tablets By Mouth 2 times a day. valacyclovir (Valtrex) 500 Milligram By Mouth every day. PATIENT EDUCATION INFORMATION: Instructions: Cellulitis, Adult Follow up: With: Address: When: Mindy Morgan [address] [place] [address]., [address] [place] [address] Meograph (1) In 3 days 07/09/2025 DIAGNOSIS: Cellulitis Normal [facility] ED Note-Physicianon 07-06-20 ED Note-Physician ED Note-Physician Basic Information Time Seen: Henry Rosenthal PA-C 07/06/2025 15:51 Chief Complaint patient presents with sores on the underside of her stomach History of Present Illness 49-year-old female comes to the ED for evaluation of a rash. She presents with rash to the lower abdomen. Some associated tenderness. No fever, chills, nausea, vomiting. She has been treating with topical antibiotic ointment antifungal cream. Physical Exam Vitals & Measurements T: 36.4 ???C(Oral) HR: 82(Peripheral) RR: 20 BP: 103/60 SpO2: 95% HT: 165 cm WT: 99.8 kg BMI: 36.66 Nurses notes and vital signs reviewed and patient is not hypoxic. General: The patient appears well, resting comfortably. Skin: Warm, dry. Scattered skin breakdown with erythematous lesions and tenderness along the skin folds of the lower abdomen. No fluctuance or induration. No necrotic tissue. No active bleeding or drainage. Head: Atraumatic. Neck: No JVD. Eye: Normal conjunctiva. Ears, Nose, Mouth, and Throat: Moist mucous membranes. Cardiovascular: Strong distal pulses. Chest wall: Respiratory: Respirations are nonlabored. Back: Normal range of motion. Musculoskeletal: Normal ROM with no gross deformity. Gastrointestinal: Urological: Neurological: Awake and alert. No focal deficits. Follows commands. Psychiatric: Cooperative. Medical Decision Making Patient is developing cellulitic lesions at the lower abdomen along the skin folds. No fungal infection. No active drainage. There is no abscess. Patient is developing cellulitic lesions at the lower abdomen along the skin folds. No fungal infection. No active drainage. There is no abscess . She is started on doxycycline. She is given a dose of Diflucan take after antibiotics as she states she is prone to yeast infections. She is discharged home to follow-up PCP follow-up. Assessment/Plan Cellulitis (L03.90: Cellulitis, unspecified) Orders: doxycycline, 100 mg = 1 tab(s), Oral, BID, X 10 day(s), # 20 tab(s), Refills(s) 0, Pharmacy: [id number], 165, cm, 07/06/25 15:39:00 EDT, Height/Length Dosing, 99.8, kg, 07/06/25 15:39:00 EDT, Weight Dosing fluconazole, See Instructions, 1 tab(s) Oral Once after antibiotics, # 1 EA, Refills(s) 0, Pharmacy: [id number], 165, cm, 07/06/25 15:39:00 EDT, Height/Length Dosing, 99.8, kg, 07/06/25 15:39:00 EDT, Weight Dosing Disposition Plan Patient Discharge Condition Disposition: Discharged home Condition: Improved and stable Counseled: Patient and/or family were counseled to workup, results, treatment plan and follow-up recommendations Discharge Prescription List Prescriptions Diflucan 150 mg Tab, See Instructions doxycycline monohydrate 100 mg oral tablet, 100 mg= 1 tab(s), Oral, BID Follow-up With When Contact Information Mindy Morgan In 3 days 07/09/2025 EDT [address] [place] [id number]- [facility] (1) Additional Instructions: Patient Education Cellulitis, Adult Attestation I performed a substantive part of the MDM during the patient???s E/M visit. I personally made or approved the documented management plan and acknowledge its risk of complications. (Independent Interpretation) My (EKG/X-Ray/US/CT) interpretation as above. (Discussion) Management/test interpretation discussed with APC. This report was transcribed using voice recognition software. Every effort was made to ensure accuracy, however, inadvertently computerized special events manager mistakes may be present. Appropriate healthcare PPE was used in evaluating this patient. 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 Medications Inpatient No active inpatient medications Home albuterol 0.083% Inh Tiffanie 3 mL, 2.5 mg= 3 mL, Inhalation, q6hr albuterol CFC free 90 mcg/inh Inh Aer w/Adapt 8 gm (Ventolin), 2 puff(s), Inhalation, QID aspirin 81 mg Oral EC Tab, 81 mg= 1 tab(s), Oral, Daily azithromycin 250 mg Tab, 250 mg, Oral, As Directed cephalexin 500 mg Cap, 500 mg= 1 cap(s), Oral, QID Diflucan 150 mg Tab, See Instructions doxycycline monohydrate 100 mg oral tablet, 100 mg= 1 tab(s), Oral, BID fenofibrate 145 mg Tab, 145 mg= 1 tab(s), Oral, Daily gabapentin 800 mg Tab, 800 mg= 1 tab(s), Oral, QID ibuprofen 600 mg (more content not included)... Normal [facility] Comment on above: Result Comment: Elec tronically Signed By: Henry Rosenthal PA-C\.br\Date and Time Signed: 07/06/25 16:44 EDT\.br\Electronically Co-Signed By: Dana Engel M.D.\.br\Date and Time Co-Signed: 07/06/25 17:59 EDT ED Patient Summaryon 025 ED Patient Summary ED Patient Summary [place] [id number] Patient Discharge Instructions Person Information Name: HIEN LAM Age: 49 Years Arrival Date: 07/06/2025 15:30:36 Discharge Diagnosis: Cellulitis Primary Care Physician: Mindy Morgan MD Provider Information Primary Provider: Dana Engel M.D. Advanced Field Service Engineer:Henry Rosenthal PA-C The exam and treatment you received in the Emergency Department were for an urgent problem and are not intended as complete care. It is important that you follow up with a doctor, nurse practitioner, or physician???s medical receptionist medical assistant for ongoing care. If your symptoms become worse or you do not improve as expected and you are unable to reach your usual health care provider, you should return to the Emergency Department. We are available 24 hours a day. GENARO HIEN Marii has been given the following list of patient education materials, prescriptions and follow-up instructions: Follow-up Instructions: With: Address: When: Mindy Morgan [address] [place] [address] Business (1) In 3 days 07/09/2025 In the event that this physician does not participate in your insurance network, please consult with your insurance company to find a nearby participating provider. Patient Education Materials: Cellulitis, Adult A MESSAGE TO ALL PATIENTS REGARDING OPIOIDS PRESCRIPTION OPIOIDS: WHAT YOU NEED TO KNOW Prescription opioids can be used to help relieve nmczgyqe-xw-vfbzok pain and are often prescribed following a surgery or injury, or for certain health conditions. These medications can be an important part of the treatment but also come with serious risks. It is important to work with your healthcare provider to make sure you are getting the safest, most effective care. WHAT ARE THE RISKS AND SIDE EFFECTS OF OPIOID USE? Prescription opioids carry serious risks of addiction and overdose, especially with prolonged use. An opioid overdose, often marked by slowed breathing, can cause sudden . The use of prescription opioids can have a number of side effects as well, even when taken as directed: ??? Tolerance???meaning you might need to take more of the medication for the same pain relief ??? Physical dependence???meaning you have symptoms of withdrawal when a medication is stopped ??? Increased sensitivity to pain ??? Constipation ??? Nausea, vomiting, and dry mouth ??? Sleepiness and dizziness ??? Confusion ??? Depression ??? Low levels of testosterone that can result in lower sex drive, energy, and strength ??? Itching and sweating RISKS ARE GREATER WITH: ??? History of drug misuse, substance use disorder, or overdose ??? Mental health conditions (such as depression or anxiety) ??? Sleep apnea ??? Older age (65 years and older) ??? Avoid alcohol while taking prescription opioids. Also, unless specifically advised by your health care provider, medications to avoid include: ??? Benzodiazepines (such as Xanax or Valium) ??? Muscle relaxants (such as Soma or Flexeril) ??? Hypnotics (such as Ambien or Lunesta) ??? Other prescription opioids KNOW YOUR OPTIONS Talk to your health care provider about ways to manage your pain that don???t involve prescription opioids. Some of these options may actually work better and have fewer risks and side effects. Options may include: ??? Pain relievers such as acetaminophen, ibuprofen, and naproxen ??? Some medication that are also used for depression or seizures ??? Physical therapy and exercise ??? Cognitive behavioral therapy, a psychological, goal-directed approach, in which patients learn how to modify physical, behavioral, and emotional triggers of pain and stress. IF YOU ARE PRESCRIBED OPIOIDS FOR PAIN: ??? Never take opioids in greater amounts or more often than prescribed. ??? Follow up with your primary health care provider. o Work together to create a plan on how to manage your pain. o Talk about ways to help manage your pain that don???t involve prescription opioids. o Talk about any and all concerns and side effects. ??? Help prevent misuse and abuse o Never sell or share prescription opioids. o Never use another person???s prescription opioids. ??? Store prescription opioids in a secure place and out of reach of others (this may include visitors, children, friends, and family). ??? Safely dispose of unused prescription opioids: Find your community drug take-back program or your pharmacy mail-back program, or flush them down the toilet, following guidance from the Food and Drug Administration (www.fda.gov/Drugs/Resour cesForYou). ??? Visit www.cdc.gov/drugoverdose to learn about the risks of opioids abuse and overdose. ??? If you believe you may be struggling with addiction, tell your health care prof (more content not included)... Normal [facility] Blood Urea Nitrogenon 2024 Urea nitrogen [Mass/Vol] 23 mg/dL Normal 7-25 [facility] Comment on above: Result Comment: PERF ORMED BY: [address] [place] [address] PATHOLOGIST COOPERER BAMBI VANG M.D. Performed By: #### B UN #### [address] Cardiac device check - Remot christiano 06-06-2025 [facility] Work Phone: Radiology Study observation (narrative) [facility] Work Phone: ECG 12 lead (Clinic Performe d)on 06-04-2025 [facility] Work Phone: No Panel Informationon 05-31 Renea Acosta MA 06/05/2025 7:56 AM L Inj/Asp: bilateral knee on 05/31/2025 4:26 PM Indications: pain Details: 22 G needle Medications (Right): 6 mg betamethasone acetate-betamethasone sodium phosphate 6 (3-3) MG/ML Medications (Left): 6 mg betamethasone acetate-betamethasone sodium phosphate 6 (3-3) MG/ML Consent was given by the patient. [facility] Glucose (Bld) [Mass/Vol]Orde red By: Mary Mendenhall on 05-30-2025 Glucose Blood, POC 194 mg/dL [facility] - Hematology and Cell countson 05-30-2025 HbA1c (Bld) [Mass fraction] 9 % [facility] No Panel InformationOrdered By: Mary Mendenhall on 05-30-2025 [facility] Adrenocorticotropic Hormone PLon 05-25-[address] 14.1 pg/mL Normal 7.2-63.3 [facility] Comment on above: Result Comment: ACTH reference interval for samples collected between 7 and 10 AM. Performed at: [place] [id number] Suede Cleaner: Alvarez Cunningham PhD, Phone: [phone] PERFORMED BY: [place] [address] PATHOLOGIST COOPERER BAMBI VANG M.D. Performed By: #### C BC, CMP #### [address] C-Peptideon 05-25-2025 C-Peptide 15.1 ng/mL Normal 1.1-4.4 [facility] Comment on above: Result Comment: C-Pe ptide reference interval is for fasting patients. Performed at: [facility] [address] [id number] Suede Cleaner: Alvarez Cunningham PhD, Phone: [phone] Performed By: #### C BC, CMP #### [facility] [address] [id number] [facility] Cortisolon 05-25-2025 Cortisol 11.3 ug/dL Normal [facility] Comment on above: Result Comment: Refe rence range: AM 6 - 24 ug/dl PM <10 ug/dl [facility] audio video mechanic and method: YAEL UNICEL DXI, POLYCLONAL ANTIBODY CORTISOL ASSAY. Performed By: #### L H, CPEP, ACTH, IGF-1, GH #### [facility] , #### LIPID, [id number], VLADIMIR, FSH, LDLD, RENAL, PRL #### [facility] [address] [id number] [facility] Follicle Stimulating Hormone on 05-25-2025 Follicle Stimulating Hormone 15.2 m[iU]/mL Normal [facility] Comment on above: Result Comment: FEMA LE NORMALS (PREMENOPAUSE) MID-FOLLICULAR PHASE: 3.9-8.8 mIU/mL MID-CYCLE PEAK: 4.5-22.5 mIU/mL MID-LUTEAL PHASE: 1.8-5.1 mIU/mL FEMALE NORMALS (POSTMENOPAUSE): 16.7-113.6 mIU/mL MALE NORMALS: 1.3-19.3 mIU/mL Performed By: #### L H, CPEP, ACTH, IGF-1, GH #### [facility] , #### LIPID, [id number], VLADIMIR, FSH, LDLD, RENAL, PRL #### [facility] [address] [id number] [facility] Growth Hormoneon 05-25-2025 Growth Hormone 0.1 ng/mL Normal 0.0-10.0 [facility] Comment on above: Result Comment: Perf ormed at: - [facility] [address] [id number] Suede Cleaner: Piedad Hutchins MD, Phone: [phone] Performed By: #### C BC, CMP #### [facility] [address] [place] [address] [place] IGF-1on 05-25-2025 IGF-1 98 ng/mL Normal 70-225 [facility] Comment on above: Result Comment: Perf ormed at: BN - [facility] [address], [place], [place] [id number] Suede Cleaner: Piedad Hutchins MD, Phone: [phone] PERFORMED BY: [place] [address] PATHOLOGIST COOPERER BAMBI VANG M.D. Performed By: #### C BC, CMP #### [address] LDL Cholesterol Measuredon 0 05-25-2025 LDL Cholesterol Measured 77 mg/dL Normal 0-100 [facility] Comment on above: Result Comment: LDL ATP III CLASSIFICATION LDL less than 100 mg/dL Optimal LDL 100-129 mg/dL Near or above optimal LDL 130-159 mg/dL Borderline high LDL 160-189 mg/dL High LDL greater than 189 mg/dL Very high Performed By: #### L H, CPEP, ACTH, IGF-1, GH #### [facility] , #### LIPID, [id number], VLADIMIR, FSH, LDLD, RENAL, PRL #### [facility] [address] [place] [address] Lipid Panelon 05-25-2025 Cholesterol [Mass/Vol] 155 mg/dL Normal 140-200 [facility] Comment on above: Result Comment: Chol less than 200 mg/dl low risk Chol 201-239 mg/dl borderline risk Chol 240 mg/dl and greater high risk Performed By: #### L H, CPEP, ACTH, IGF-1, GH #### [facility] , #### LIPID, [id number], VLADIMIR, FSH, LDLD, RENAL, PRL #### [facility] [address] [place] [address] Cholesterol in HDL [Mass/Vol] 23 mg/dL Normal 23-92 [facility] Comment on above: Result Comment: HDL CHOL ATP-III CLASSIFICATION Cardiovascular Risk HDL > or equal to 60 mg/dL LOW HDL < 40 mg/dL HIGH Performed By: #### L H, CPEP, ACTH, IGF-1, GH #### [facility] , #### LIPID, [id number], VLADIMIR, FSH, LDLD, RENAL, PRL #### [facility] [address] Cholesterol.total/Cho lesterol in HDL [Mass ratio] 6.7 {ratio} Normal <5.0 [facility] Comment on above: Performed By: #### L H, CPEP, ACTH, IGF-1, GH #### [facility] , #### LIPID, [id number], VLADIMIR, FSH, LDLD, RENAL, PRL #### [facility] [address] LDL Cholesterol,Calculate d <10 Normal 0-100 [facility] Comment on above: Result Comment: LDL ATP III CLASSIFICATION LDL less than 100 mg/dL Optimal LDL 100-129 mg/dL Near or above optimal LDL 130-159 mg/dL Borderline high LDL 160-189 mg/dL High LDL greater than 189 mg/dL Very high Performed By: #### L H, CPEP, ACTH, IGF-1, GH #### [facility] , #### LIPID, [id number], VLADIMIR, FSH, LDLD, RENAL, PRL #### [facility] [address] Triglyceride w/Reflex 625 mg/dL High 0-149 [facility] Comment on above: Result Comment: TRIG ATP III CLASSIFICATION TRIG less than 150 mg/dL Normal TRIG 150-199 mg/dL Borderline high TRIG 200-500 mg/dL High TRIG greater than 500 mg/dL Very high Standard traceable to the Center for Disease Conrtrol and Prevention (CDC) test method. If the triglyceride result is greater than 400, LDLC and related calculations cannot be calculated and resulted. Performed By: #### L H, CPEP, ACTH, IGF-1, GH #### [facility] , #### LIPID, [id number], VLADIMIR, FSH, LDLD, RENAL, PRL #### [facility] [address] VLDL CHOLESTEROL Not performed Normal [facility] Comment on above: Performed By: #### L H, CPEP, ACTH, IGF-1, GH #### [facility] , #### LIPID, [id number], VLADIMIR, FSH, LDLD, RENAL, PRL #### [address] Luteinizing Hormoneon 2024 Luteinizing Hormone 34.9 m[iU]/mL Normal . e [facility] Comment on above: Result Comment: Adul t Female Range Follicular phase 2.4 - 12.6 Ovulation phase 14.0 - 95.6 Luteal phase 1.0 - 11.4 Postmenopausal 7.7 - 58.5 Performed at: [facility] [address] [id number] Suede Cleaner: Alvarez Cunningham PhD, Phone: [phone] Performed By: #### C BC, CMP #### [address] Prolactinon 05-25-2025 Prolactin 7.58 ng/mL Normal 3.34-26.72 [facility] Comment on above: Performed By: #### L H, CPEP, ACTH, IGF-1, GH #### [facility] , #### LIPID, [id number], VLADIMIR, FSH, LDLD, RENAL, PRL #### [address] Renal Function Panelon 05-25 Albumin [Mass/Vol] 4.1 g/dL Normal 3.5-5.7 [facility] Comment on above: Performed By: #### L H, CPEP, ACTH, IGF-1, GH #### [facility] , #### LIPID, [id number], VLADIMIR, FSH, LDLD, RENAL, PRL #### [address] Anion gap [Moles/Vol] 13.7 mmol/L Normal 6.0-15.0 [facility] Comment on above: Performed By: #### L H, CPEP, ACTH, IGF-1, GH #### [facility] , #### LIPID, [id number], VLADIMIR, FSH, LDLD, RENAL, PRL #### [address] Calcium [Mass/Vol] 9.1 mg/dL Normal 8.6-10.3 [facility] Comment on above: Performed By: #### L H, CPEP, ACTH, IGF-1, GH #### [facility] , #### LIPID, [id number], VLADIMIR, FSH, LDLD, RENAL, PRL #### [address] Chloride [Moles/Vol] 107 mmol/L Normal 98-107 [facility] Comment on above: Performed By: #### L H, CPEP, ACTH, IGF-1, GH #### [facility] , #### LIPID, [id number], VLADIMIR, FSH, LDLD, RENAL, PRL #### [address] CO2 [Moles/Vol] 21.4 mmol/L Normal 21.0-31.0 [facility] Comment on above: Performed By: #### L H, CPEP, ACTH, IGF-1, GH #### [facility] , #### LIPID, [id number], VLADIMIR, FSH, LDLD, RENAL, PRL #### [address] Creatinine [Mass/Vol] 0.77 mg/dL Normal 0.60-1.20 [facility] Comment on above: Performed By: #### L H, CPEP, ACTH, IGF-1, GH #### [facility] , #### LIPID, [id number], VLADIMIR, FSH, LDLD, RENAL, PRL #### [address] GFR/1.73 sq M.predicted MDRD (S/P/Bld) [Vol rate/Area] mL/min/{1.73_m2} Normal [facility] Comment on above: Performed By: #### L H, CPEP, ACTH, IGF-1, GH #### [facility] , #### LIPID, [id number], VLADIMIR, FSH, LDLD, RENAL, PRL #### [address] Glucose [Mass/Vol] 250 mg/dL High 70-100 [facility] Comment on above: Result Comment: [facility] Glucose Reference Range is dependent on time and content of last meal. Glucose of more than 200 mg/dL in a nonstressed, ambulatory subject supports the diagnosis of Diabetes Mellitus. ADA recommended reference range Performed By: #### L H, CPEP, ACTH, IGF-1, GH #### [facility] , #### LIPID, [id number], VLADIMIR, FSH, LDLD, RENAL, PRL #### [place] [address] [place] Phosphate [Mass/Vol] 2.7 mg/dL Normal 2.5-4.5 [facility] Comment on above: Performed By: #### L H, CPEP, ACTH, IGF-1, GH #### [facility] , #### LIPID, [id number], VLADIMIR, FSH, LDLD, RENAL, PRL #### [address] Potassium [Moles/Vol] 4.1 mmol/L Normal 3.5-5.1 [facility] Comment on above: Performed By: #### L H, CPEP, ACTH, IGF-1, GH #### [facility] , #### LIPID, [id number], VLADIMIR, FSH, LDLD, RENAL, PRL #### [address] Sodium [Moles/Vol] 138 mmol/L Normal 136-145 [facility] Comment on above: Performed By: #### L H, CPEP, ACTH, IGF-1, GH #### [facility] , #### LIPID, [id number], VLADIMIR, FSH, LDLD, RENAL, PRL #### [address] Urea nitrogen [Mass/Vol] 19 mg/dL Normal 7-25 [facility] Comment on above: Performed By: #### L H, CPEP, ACTH, IGF-1, GH #### [facility] , #### LIPID, [id number], VLADIMIR, FSH, LDLD, RENAL, PRL #### [address] Vitamin D 25 Hydroxy Totalon 05-25-2025 Vitamin D 25 Hydroxy Total 32.2 ng/mL Normal 30-100 [facility] Comment on above: Result Comment: CHRIS MIN D STATUS 25(OH)VITAMIN D RANGE (ng/mL) Deficient <20 Insufficient 20 to <30 Sufficient 30 to 100 Reference: Constantino MF,Kianna NC, Jeanette ALEX, et al. Evaluation,treatment, and prevention of vitamin D deficiency; an Endocrine Society clinical practice guideline. JCEM. 2010; 96(7):1911-30. PERFORMED BY: [place] [address] PATHOLOGIST COOPERER BAMBI VANG M.D. Performed By: #### L H, CPEP, ACTH, IGF-1, GH #### [facility] , #### LIPID, [id number], VLADIMIR, FSH, LDLD, RENAL, PRL #### [address] [id number] [facility] US Abdomenon 05-16-2025 Radiology Study observation (narrative) [facility] Work Phone: US Abdomenon 05-15-2025 Roger Jones MD 05/16/2025 10:16 AM Performed by: Roger Jones MD Authorized by: Roger Jones MD IMAGING [facility] Work Phone: MR BRAIN WO IV CONTRASTon MR BRAIN WO IV CONTRAST Interpreted By: Jin Chin, STUDY: MR BRAIN WO IV CONTRAST INDICATION: Signs/Symptoms:seizures. COMPARISON: Head CT 12/04/2021. Brain MRI 06/26/2021. ACCESSION NUMBER(S): [id number] ORDERING CLINICIAN: GILDA LEONG TECHNIQUE: Multi-planar multi-sequential MR imaging of the brain was performed without intravenous contrast. FINDINGS: Redemonstration of postoperative change status post suboccipital craniectomy and C1 laminectomy for Chiari 1 decompression. Similar pointed appearance of the cerebellar tonsils extending to the level of the foramen magnum. Degree of tonsillar herniation is significantly improved compared to previous MRI 06/26/2021. Linear FLAIR hyperintensity within the right garrison radiata extending from overlying cortex and comes in close proximity to underlying ependymal surface. This appears curvilinear on high-resolution T1 weighted imaging and is thought to represent vasculature. No associated blurring of overlying dodd-white differentiation or cortical thickening. Multiple punctate foci of predominantly subcortical white matter FLAIR hyperintensities and bilateral frontal lobes. Stable asymmetry of the left lateral ventricle. Hippocampi appear symmetric in volume. Evaluation of hippocampal architecture and signal is limited given lack of coronal T2 and FLAIR imaging. 9 mm cystic lesion in the left superior frontal gyrus with mild surrounding associated gliosis is unchanged. No focal cortical abnormality. No acute infarction, intracranial hemorrhage or mass. No hydrocephalus. No extra-axial fluid collections. The skull base flow voids are present. The visualized intraorbital contents are normal. The imaged portions of the paranasal sinuses are clear. The mastoid air cells are clear. The visualized osseous structures, soft tissues and partially visualized parotid glands appear normal. 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 Decreased tonsillar herniation compared to previous MRI 06/26/2021. No definite limbic abnormality within limitation of absence of T2/FLAIR coronal imaging. No focal cortical abnormality appreciated. An addendum may be performed upon clinical request once seizure semiology is made available. 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 9 mm cystic lesion in the left superior frontal gyrus with mild surrounding gliosis likely employment program representative of prominent perivascular space. No acute intracranial abnormality. Signed by: Jin Chin 05/04/2025 2:36 PM Dictation workstation: [id number] [facility] Comment on above: Order Comment: roselinemat NM Heart Perfusion W stress and W radionuclide Andrea 04-27-2025 Abnormal Lexiscan My oview cardiac perfusion stress test. Multiple areas involving anterior anterior apical and inferior segments consistent with moderate myocardial ischemia by perfusion imaging. No evidence of myocardial infarction by perfusion imaging. Normal left ventricular systolic function. Left ventricular ejection fraction 65 %. Significant diaphragmatic attenuation with some breast attenuation as well. Signed by: Charissa Mckinnon 04/27/2025 1:14 PM Dictation workstation: [id number] MMODAL Interpreted By: Charissa Rizo, STUDY: NUCLEAR STRESS TEST; 04/27/2025 12:50 pm Performing facility: Patient name: HIEN LAM Gender: F Age: 49 y/o Height: HT 162.6 cm cm; Weight: WT 100.245 kg kg.; INDICATION: Signs/Symptoms:chest discomfort. HISTORY: REASON FOR LEXISCAN: COMPARISON: None. ACCESSION NUMBER(S): [id number] ORDERING CLINICIAN: RAMIRO BHANDARI TECHNIQUE: The patient had myocardial perfusion imaging performed using a Lexiscan protocol. Stress injection 31.2 mCi of Myoview IV at 20 seconds after rapid injection of Lexiscan. Rest injection 9.3 mCi of Myoview IV at rest. The patient had a rapid injection of 0.4 mg of Lexiscan IV over 10 seconds. Imaging was performed by gated tomographic technique. FINDINGS: STRESS TEST RESULTS: Resting heart rate was 65 BPM. Resting blood pressure was 94/40. Resting electrocardiogram revealed sinus rhythm, can not rule out anterior infarct remote.. There were no significant ischemic ECG changes. There were no dysrhythmias. The patient did not have chest pain/symptoms during the procedure. There was a normal recovery phase. IMAGING RESULTS: Image quality was good. Rest and stress tomographic images were reviewed and revealed abnormal perfusion. There was evidence of ischemia by perfusion images with in the anterior anterior apical and inferior gan area of at least moderate ischemia. There was not evidence of myocardial infarction seen There was not left ventricular dilatation with stress. Overall left ventricular systolic function appeared to be normal. There were not regional wall motion abnormalities with hypokinesis. LVEF was 65 %. TID is 1.0 and is normal. There was evidence of diaphragmatic and breast attenuation artifact. MMODAL Charissa Mckinnon, DO - 04/27/2025 Interpreted By: Charissa Mckinnon, STUDY: NUCLEAR STRESS TEST; 04/27/2025 12:50 pm Performing facility: Patient name: HIEN LAM Gender: F Age: 49 y/o Height: HT 162.6 cm cm; Weight: WT 100.245 kg kg.; INDICATION: Signs/Symptoms:chest discomfort. HISTORY: REASON FOR LEXISCAN: COMPARISON: None. ACCESSION NUMBER(S): [id number] ORDERING CLINICIAN: RAMIRO BHANDARI TECHNIQUE: The patient had myocardial perfusion imaging performed using a Lexiscan protocol. Stress injection 31.2 mCi of Myoview IV at 20 seconds after rapid injection of Lexiscan. Rest injection 9.3 mCi of Myoview IV at rest. The patient had a rapid injection of 0.4 mg of Lexiscan IV over 10 seconds. Imaging was performed by gated tomographic technique. FINDINGS: STRESS TEST RESULTS: Resting heart rate was 65 BPM. Resting blood pressure was 94/40. Resting electrocardiogram revealed sinus rhythm, can not rule out anterior infarct remote.. There were no significant ischemic ECG changes. There were no dysrhythmias. The patient did not have chest pain/symptoms during the procedure. There was a normal recovery phase. IMAGING RESULTS: Image quality was good. Rest and stress tomographic images were reviewed and revealed abnormal perfusion. There was evidence of ischemia by perfusion images with in the anterior anterior apical and inferior gan area of at least moderate ischemia. There was not evidence of myocardial infarction seen There was not left ventricular dilatation with stress. Overall left ventricular systolic function appeared to be normal. There were not regional wall motion abnormalities with hypokinesis. LVEF was 65 %. TID is 1.0 and is normal. There was evidence of diaphragmatic and breast attenuation artifact. IMPRESSION: Abnormal Lexiscan Myoview cardiac perfusion stress test. Multiple areas involving anterior anterior apical and inferior segments consistent with moderate myocardial ischemia by perfusion imaging. No evidence of myocardial infarction by perfusion imaging. Normal left ventricular systolic function. Left ventricular ejection fraction 65 %. Significant diaphragmatic attenuation with some breast attenuation as well. Signed by: Charissa Mckinnon 04/27/2025 1:14 PM Dictation workstation: [id number] [facility] Work Phone: Radiology Study observation (narrative) [facility] Work Phone: NM Heart Perfusion W stress and W radionuclide IVOrdered By: Charissa Mckinnon on 04-27-2025 [facility] Work Phone: NUCLEAR STRESS TESTon 2024 NUCLEAR STRESS TEST Interpreted By: Charissa Rizo, STUDY: NUCLEAR STRESS TEST; 04/27/2025 12:50 pm Performing facility: Patient name: HIEN LAM Gender: F Age: 49 y/o Height: HT 162.6 cm cm; Weight: WT 100.245 kg kg.; INDICATION: Signs/Symptoms:chest discomfort. HISTORY: REASON FOR LEXISCAN: COMPARISON: None. ACCESSION NUMBER(S): [id number] ORDERING CLINICIAN: RAMIRO BHANDARI TECHNIQUE: The patient had myocardial perfusion imaging performed using a Lexiscan protocol. Stress injection 31.2 mCi of Myoview IV at 20 seconds after rapid injection of Lexiscan. Rest injection 9.3 mCi of Myoview IV at rest. The patient had a rapid injection of 0.4 mg of Lexiscan IV over 10 seconds. Imaging was performed by gated tomographic technique. FINDINGS: STRESS TEST RESULTS: Resting heart rate was 65 BPM. Resting blood pressure was 94/40. Resting electrocardiogram revealed sinus rhythm, can not rule out anterior infarct remote.. There were no significant ischemic ECG changes. There were no dysrhythmias. The patient did not have chest pain/symptoms during the procedure. There was a normal recovery phase. IMAGING RESULTS: Image quality was good. Rest and stress tomographic images were reviewed and revealed abnormal perfusion. There was evidence of ischemia by perfusion images with in the anterior anterior apical and inferior gan area of at least moderate ischemia. There was not evidence of myocardial infarction seen There was not left ventricular dilatation with stress. Overall left ventricular systolic function appeared to be normal. There were not regional wall motion abnormalities with hypokinesis. LVEF was 65 %. TID is 1.0 and is normal. There was evidence of diaphragmatic and breast attenuation artifact. IMPRESSION: Abnormal Lexiscan Myoview cardiac perfusion stress test. Multiple areas involving anterior anterior apical and inferior segments consistent with moderate myocardial ischemia by perfusion imaging. No evidence of myocardial infarction by perfusion imaging. Normal left ventricular systolic function. Left ventricular ejection fraction 65 %. Significant diaphragmatic attenuation with some breast attenuation as well. Signed by: Charissa Mckinnon 04/27/2025 1:14 PM Dictation workstation: [id number] [facility] US CAROTID ARTERY DUPLE X BILATERALon 04-27-2025 [facility] US CAROTID ARTERY DUPLEX BILATERAL Interpreted By: Abhishek Williamson, STUDY: [facility] US CAROTID ARTERY DUPLEX BILATERAL; 04/27/2025 1:07 pm INDICATION: Signs/Symptoms:biolateral carotid artery stenosis. ,I65.23 Occlusion and stenosis of bilateral carotid arteries COMPARISON: None. ACCESSION NUMBER(S): [id number] ORDERING CLINICIAN: RAMIRO BHANDARI TECHNIQUE: Vascular ultrasound of the extracranial carotid system was performed bilaterally. Dodd scale, color Doppler and spectral Doppler waveform analysis was performed. FINDINGS: RIGHT: On the right, there is diffuse atheromatous plaques in the common carotid arteries, visualized portions of the internal carotid arteries, and the proximal external carotid arteries. Doppler studies demonstrate normal flow pattern without evidence of turbulent flow.. The peak systolic velocities are as follows: RIGHT SIDE PEAK SYSTOLIC VELOCITY TABLE: CCA 100 cm/s. ICA 97 cm/s. ECA 212 cm/s. The ratio of the peak systolic velocity of the right ICA/CCA is .97. RIGHT VERTEBRAL ARTERY: The right vertebral artery demonstrates proximal normal anterograde flow LEFT: On the left, there is diffuse atheromatous plaques in the common carotid arteries, visualized portions of the internal carotid arteries, and the proximal external carotid arteries. Doppler studies demonstrate normal flow pattern without evidence of turbulent flow.. The peak systolic velocities are as follows: LEFT SIDE PEAK SYSTOLIC VELOCITY TABLE: CCA 77,22 cm/s. ICA 81 cm/s. ECA 376 cm/s. The ratio of the peak systolic velocity of the left ICA/CCA is 1.05. LEFT VERTEBRAL ARTERY: The left vertebral artery demonstrates proximal normal anterograde flow IMPRESSION: Diffuse atheromatous plaque, with less than 50% stenosis bilaterally by ICA/CCA ratio. The velocity criteria are extrapolated from diameter data as defined by the Society of Radiologists in Ultrasound Consensus Conference Radiology 2003; 229;340-346. MACRO: None Signed by: Abhishek Williamson 04/29/2025 3:48 PM Dictation workstation: [id number] [facility] Blood Urea Nitrogenon 2024 Urea nitrogen [Mass/Vol] 22 mg/dL Normal 7-25 [facility] Comment on above: Performed By: #### L H, CPEP, ACTH, IGF-1, GH #### [facility] , #### LIPID, [id number], VLADIMIR, FSH, LDLD, RENAL, PRL #### [address] Creatinineon 03-30-2025 Creatinine [Mass/Vol] 0.87 mg/dL Normal 0.60-1.20 [facility] Comment on above: Performed By: #### L H, CPEP, ACTH, IGF-1, GH #### [facility] , #### LIPID, [id number], VLADIMIR, FSH, LDLD, RENAL, PRL #### [address] GFR/1.73 sq M.predicted MDRD (S/P/Bld) [Vol rate/Area] mL/min/{1.73_m2} Normal [facility] Comment on above: Result Comment: PERF ORMED BY: [place] [address] PATHOLOGIST COOPERER BAMBI VANG M.D. Performed By: #### L H, CPEP, ACTH, IGF-1, GH #### [facility] , #### LIPID, [id number], VLADIMIR, FSH, LDLD, RENAL, PRL #### [address] XR Cervical spine 4 or 5 Vie wson 03-19-2025 Imaging Result: AP lateral and oblique of the cervical spine taken in the office today demonstrating significant degenerative disc disease at multiple levels including C2-3 and C5-6 with no obvious listhesis or evidence of fracture bony tumor seen. [facility] Radiology Study observation (narrative) [facility] Glucose (Bld) [Mass/Vol]on 0 03-15-2025 Glucose Blood, POC 272 mg/dL [facility] Laboratory - Hematology and Cell countson 03-15-2025 HbA1c (Bld) [Mass fraction] 7.8 % [facility] No Panel Informationon 03-15 Interpretation and review of laboratory results Abnormal [facility] [facility] angio chest PE protocolon 03-10-2025 CT angio chest PE protocol [facility] [place] [address] [place] [id number] Scan Report Signed Patient: Hien Lam MR#: [id number] : 1975 Acct:[id number] Age/Sex: 49 / F ADM Date: 03/09/25 Loc: ER Room: Type: [facility] ER Attending Dr: Copies to: Santi Pickering Jr, MD Ordering Provider: Santi Pickering Jr, MD Date of Service: 03/09/25 CT/CT angio chest PE protocol: felt like heart ripped out while alive CT ANGIOGRAM OF THE CHEST, PULMONARY EMBOLISM PROTOCOL: CLINICAL INFORMATION: Left chest pain and arm pain COMPARISON: Chest x-ray 03/27/2025 TECHNIQUE: Following intravenous injection of contrast CT scans of the chest were obtained using pulmonary embolism protocol. Coronal and sagittal reconstructed images, as well as volume rendered CT pulmonary angiographic images were also submitted.The CT exam was performed using one or more of the following dose reduction techniques: Automated exposure control, adjustment of the MA and/or Kv according to patient size, or use of the iterative reconstruction technique. FINDINGS: Pulmonary Vasculature: Contrast bolus is adequate for evaluation of pulmonary embolism. Pulmonary trunk appears nondilated. No filling defects are identified to suggest pulmonary embolism. Mediastinum : Thoracic aorta is normal in caliber. Mild cardiomegaly with pacemaker leads in situ. No pericardial effusion. No lymphadenopathy. The esophagus is grossly unremarkable. Lungs: Pleural parenchymal bands right lung base and within the lingula likely areas of subsegmental atelectasis and/or scarring. No focal consolidation, pneumothorax or pleural effusion. Upper abdomen: Cholecystectomy. Soft tissue/bones: Soft tissues surrounding the chest wall demonstrate no acute findings. Osseous structures demonstrate degenerative change. CT/CT angio chest PE protocol IMPRESSION: NO CT EVIDENCE OF PULMONARY EMBOLISM. BIBASILAR AREAS OF PARENCHYMAL OPACITY LIKELY SUBSEGMENTAL ATELECTASIS AND OR SCARRING. Impression dictated by: Shay Green M.D. 03/10/2025 7:13 AM Dictation Location: [place] [address] Transcribed By: [facility] 03/10/25712 Dictated By: Shay Green MD 03/10/25709 Signed By: 03/10/25712 Normal [facility] B-Type Natriuretic Peptideon 03-09-2025 Natriuretic peptide B (Bld) [Mass/Vol] 30.0 pg/mL Normal 5-100 [facility] Comment on above: Result Comment: PERF ORMED BY: [place] [address] PATHOLOGIST COOPERER HARDIK KELLER M.D. Performed By: #### L H, CPEP, ACTH, IGF-1, GH #### [facility] , #### LIPID, [id number], VLADIMIR, FSH, LDLD, RENAL, PRL #### [address] Basic Metabolic Panelon Anion gap [Moles/Vol] 10.4 mmol/L Normal 6.0-15.0 [facility] Comment on above: Performed By: #### L H, CPEP, ACTH, IGF-1, GH #### [facility] , #### LIPID, [id number], VLADIMIR, FSH, LDLD, RENAL, PRL #### [address] Calcium [Mass/Vol] 9.0 mg/dL Normal 8.6-10.3 [facility] Comment on above: Performed By: #### L H, CPEP, ACTH, IGF-1, GH #### [facility] , #### LIPID, [id number], VLADIMIR, FSH, LDLD, RENAL, PRL #### [facility] [address] [place] [address] Chloride [Moles/Vol] 106 mmol/L Normal 98-107 [facility] Comment on above: Performed By: #### L H, CPEP, ACTH, IGF-1, GH #### [facility] , #### LIPID, [id number], VLADIMIR, FSH, LDLD, RENAL, PRL #### [address] CO2 [Moles/Vol] 22.7 mmol/L Normal 21.0-31.0 [facility] Comment on above: Performed By: #### L H, CPEP, ACTH, IGF-1, GH #### [facility] , #### LIPID, [id number], VLADIMIR, FSH, LDLD, RENAL, PRL #### [address] Creatinine [Mass/Vol] 0.78 mg/dL Normal 0.60-1.20 [facility] Comment on above: Performed By: #### L H, CPEP, ACTH, IGF-1, GH #### [facility] , #### LIPID, [id number], VLADIMIR, FSH, LDLD, RENAL, PRL #### [address] Creatinine Clr Calc Pharmacy 101.34 Normal [facility] Comment on above: Result Comment: PERF ORMED BY: [place] [address] PATHOLOGIST COOPERER HARDIK KELLER M.D. Performed By: #### L H, CPEP, ACTH, IGF-1, GH #### [facility] , #### LIPID, [id number], VLADIMIR, FSH, LDLD, RENAL, PRL #### [address] GFR/1.73 sq M.predicted MDRD (S/P/Bld) [Vol rate/Area] mL/min/{1.73_m2} Normal [facility] Comment on above: Performed By: #### L H, CPEP, ACTH, IGF-1, GH #### [facility] , #### LIPID, [id number], VLADIMIR, FSH, LDLD, RENAL, PRL #### [address] Glucose [Mass/Vol] 207 mg/dL High 70-100 [facility] Comment on above: Result Comment: [facility] Glucose Reference Range is dependent on time and content of last meal. Glucose of more than 200 mg/dL in a nonstressed, ambulatory subject supports the diagnosis of Diabetes Mellitus. ADA recommended reference range Performed By: #### L H, CPEP, ACTH, IGF-1, GH #### [facility] , #### LIPID, [id number], VLADIMIR, FSH, LDLD, RENAL, PRL #### [address] Potassium [Moles/Vol] 4.1 mmol/L Normal 3.5-5.1 [facility] Comment on above: Performed By: #### L H, CPEP, ACTH, IGF-1, GH #### [facility] , #### LIPID, [id number], VLADIMIR, FSH, LDLD, RENAL, PRL #### [address] Sodium [Moles/Vol] 135 mmol/L Low 136-145 [facility] Comment on above: Performed By: #### L H, CPEP, ACTH, IGF-1, GH #### [facility] , #### LIPID, [id number], VLADIMIR, FSH, LDLD, RENAL, PRL #### [address] Urea nitrogen [Mass/Vol] 22 mg/dL Normal 7-25 [facility] Comment on above: Performed By: #### L H, CPEP, ACTH, IGF-1, GH #### [facility] , #### LIPID, [id number], VLADIMIR, FSH, LDLD, RENAL, PRL #### [address] Complete Blood Count Auto Di ffon 03-09-2025 Basophils (Bld) [#/Vol] 0.1 10*3/uL Normal 0.0-0.2 [facility] Comment on above: Result Comment: PERF ORMED BY: [place] [address] PATHOLOGIST COOPERER HARDIK KELLER M.D. Performed By: #### L H, CPEP, ACTH, IGF-1, GH #### [facility] , #### LIPID, [id number], VLADIMIR, FSH, LDLD, RENAL, PRL #### [address] Basophils/100 WBC (Bld) 0.5 % Normal . [facility] Comment on above: Performed By: #### L H, CPEP, ACTH, IGF-1, GH #### [facility] , #### LIPID, [id number], VLADIMRI, FSH, LDLD, RENAL, PRL #### [address] Eosinophils (Bld) [#/Vol] 0.2 10*3/uL Normal 0.0-0.45 [facility] Comment on above: Performed By: #### L H, CPEP, ACTH, IGF-1, GH #### [facility] , #### LIPID, [id number], VLADIMIR, FSH, LDLD, RENAL, PRL #### [address] Eosinophils/100 WBC (Bld) 1.9 % Normal . [facility] Comment on above: Performed By: #### L H, CPEP, ACTH, IGF-1, GH #### [facility] , #### LIPID, [id number], VLADIMIR, FSH, LDLD, RENAL, PRL #### [address] Erythrocyte distribution width (RBC) [Ratio] 13.8 % Normal 11.9-15.3 [facility] Comment on above: Performed By: #### L H, CPEP, ACTH, IGF-1, GH #### [facility] , #### LIPID, [id number], VLADIMIR, FSH, LDLD, RENAL, PRL #### [address] Hematocrit (Bld) [Volume fraction] 47.0 % High 34.0-46.4 [facility] Comment on above: Performed By: #### L H, CPEP, ACTH, IGF-1, GH #### [facility] , #### LIPID, [id number], VLADIMIR, FSH, LDLD, RENAL, PRL #### [address] Hemoglobin (Bld) [Mass/Vol] 15.9 g/dL High 11.8-15.4 [facility] Comment on above: Performed By: #### L H, CPEP, ACTH, IGF-1, GH #### [facility] , #### LIPID, [id number], VLADIMIR, FSH, LDLD, RENAL, PRL #### [address] Lymphocytes (Bld) [#/Vol] 3.5 10*3/uL Normal 1.00-4.8 [facility] Comment on above: Performed By: #### L H, CPEP, ACTH, IGF-1, GH #### [facility] , #### LIPID, [id number], VLADIMIR, FSH, LDLD, RENAL, PRL #### [address] Lymphocytes/100 WBC (Bld) 32.1 % Normal . [facility] Comment on above: Performed By: #### L H, CPEP, ACTH, IGF-1, GH #### [facility] , #### LIPID, [id number], VLADIMIR, FSH, LDLD, RENAL, PRL #### [address] MCH (RBC) [Entitic mass] 33.9 pg Normal 24.7-34.3 [facility] Comment on above: Performed By: #### L H, CPEP, ACTH, IGF-1, GH #### [facility] , #### LIPID, [id number], VLADIMIR, FSH, LDLD, RENAL, PRL #### [address] MCV (RBC) [Entitic vol] 100.3 fL High 80-100 [facility] Comment on above: Performed By: #### L H, CPEP, ACTH, IGF-1, GH #### [facility] , #### LIPID, [id number], VLADIMIR, FSH, LDLD, RENAL, PRL #### [address] Mean Corpuscular HGB Conc 33.8 g/dL Normal 32.0-35.0 [facility] Comment on above: Performed By: #### L H, CPEP, ACTH, IGF-1, GH #### [facility] , #### LIPID, [id number], VLADIMIR, FSH, LDLD, RENAL, PRL #### [address] Monocytes (Bld) [#/Vol] 0.9 10*3/uL High 0.0-0.8 [facility] Comment on above: Performed By: #### L H, CPEP, ACTH, IGF-1, GH #### [facility] , #### LIPID, [id number], VLADIMIR, FSH, LDLD, RENAL, PRL #### [address] Monocytes/100 WBC (Bld) 21.66 % High 0.00-20.00 [facility] Comment on above: Result Comment: For adults in ED, MDW > 20.0 may be associated with a higher risk of sepsis during the first 12 hrs of hospital admission Performed By: #### L H, CPEP, ACTH, IGF-1, GH #### [facility] , #### LIPID, [id number], VLADIMIR, FSH, LDLD, RENAL, PRL #### [address] Monocytes/100 WBC (Bld) 8.6 % Normal . [facility] Comment on above: Performed By: #### L H, CPEP, ACTH, IGF-1, GH #### [facility] , #### LIPID, [id number], VLADIMIR, FSH, LDLD, RENAL, PRL #### [address] Neutrophils (Bld) [#/Vol] 6.2 10*3/uL Normal 1.8-7.7 [facility] Comment on above: Performed By: #### L H, CPEP, ACTH, IGF-1, GH #### [facility] , #### LIPID, [id number], VLADIMIR, FSH, LDLD, RENAL, PRL #### [address] Neutrophils/100 WBC (Bld) 56.9 % Normal . [facility] Comment on above: Performed By: #### L H, CPEP, ACTH, IGF-1, GH #### [facility] , #### LIPID, [id number], VLADIMIR, FSH, LDLD, RENAL, PRL #### [address] NRBC% 0.1 /100{WBC} Normal 0-0.5 [facility] Comment on above: Performed By: #### L H, CPEP, ACTH, IGF-1, GH #### [facility] , #### LIPID, [id number], VLADIMIR, FSH, LDLD, RENAL, PRL #### [address] Platelet mean volume (Bld) [Entitic vol] 9.0 fL Normal 6.3-10.7 [facility] Comment on above: Performed By: #### L H, CPEP, ACTH, IGF-1, GH #### [facility] , #### LIPID, [id number], VLADIMIR, FSH, LDLD, RENAL, PRL #### [address] Platelets (Bld) [#/Vol] 187 10*3/uL Normal 150-450 [facility] Comment on above: Performed By: #### L H, CPEP, ACTH, IGF-1, GH #### [facility] , #### LIPID, [id number], VLADIMIR, FSH, LDLD, RENAL, PRL #### [address] RBC (Bld) [#/Vol] 4.68 10*6/uL Normal 3.60-5.00 [facility] Comment on above: Performed By: #### L H, CPEP, ACTH, IGF-1, GH #### [facility] , #### LIPID, [id number], VLADIMIR, FSH, LDLD, RENAL, PRL #### [address] WBC (Bld) [#/Vol] 10.9 10*3/uL Normal 3.8-11.6 [facility] Comment on above: Performed By: #### L H, CPEP, ACTH, IGF-1, GH #### [facility] , #### LIPID, [id number], VLADIMIR, FSH, LDLD, RENAL, PRL #### [address] Creatine Kinaseon 03-09-2025 CK [Catalytic activity/Vol] 34 U/L Normal 30-223 [facility] Comment on above: Performed By: #### L H, CPEP, ACTH, IGF-1, GH #### [facility] , #### LIPID, [id number], VLADIMIR, FSH, LDLD, RENAL, PRL #### [address] ECG 12 lead ECGon 03-09-2025 ECG 12 lead ECG [facility] [place] [address] [place], [place] [id number] Electrocardiograph Report Signed Patient: Hien Lam MR#: [id number] : 1975 Acct:[id number] Age/Sex: 49 / F ADM Date: 03/09/25 Loc: ER Room: Type: [facility] ER Attending Dr: Ordering Provider: Santi Pickering Jr, MD Date of Service: 03/09/2501/02/2119 ECG/ECG 12 lead ECG: Chest Pain Copies to: Test Reason : Blood Pressure : 105/58 mmHG Vent. Rate : 78 BPM Atrial Rate : 78 BPM P-R Int : 156 ms QRS Dur : 86 ms QT Int : 388 ms P-R-T Axes : 55 65 28 degrees QTcB Int : 442 ms Normal sinus rhythm Normal ECG When compared with ECG of 18-Feb-2021 18:38, No significant change was found Confirmed by Isaac Forbes ([id number]) on 03/12/2025 9:47:12 AM Referred By: Electronically Signed By: Isaac Forbes Transcribed By: MUS Signed By Isaac Forbes MD 03/12/25 0947 Normal [facility] Prothrombin Time INRon 03-09 INR Coag (PPP) [Relative time] 1.0 {INR} Normal [facility] Comment on above: Result Comment: INR Therapeutic Range A) Pre- and Peroperative OAT started two weeks before surgery. NOT HIP SURGERY: 1.5 - 2.5 HIP SURGERY: 2 - 3 B) Primary and secondary prevention of venous THROMBOSIS: 2 - 3 C) Active venous thrombosis, pulmonary embolism and prevention of recurrent venous thrombosis: 2 - 3 D) Prevention of arterial thromboembolism including patients with mechanical heart valves: 3 - 4.5 PERFORMED BY: [place] [address] PATHOLOGIST COOPERER HARDIK KELLER M.D. Performed By: #### L H, CPEP, ACTH, IGF-1, GH #### [facility] , #### LIPID, [id number], VLADIMIR, FSH, LDLD, RENAL, PRL #### [address] PT Coag (PPP) [Time] 11.2 s Normal 9.0-12.9 [facility] Comment on above: Result Comment: A he matocrit value greater than 55% may lead to inaccurate results in coagulation testing. Patients having hematocrit values >55% require a special collection tube for coagulation studies. Please contact the laboratory at [phone] for redraw instructions. Performed By: #### L H, CPEP, ACTH, IGF-1, GH #### [facility] , #### LIPID, [id number], VLADIMIR, FSH, LDLD, RENAL, PRL #### [address] Troponin I High Sensitivityo n 03-09-2025 Troponin I High Sensitivity 7 Normal 0-15 [facility] Comment on above: Result Comment: The Troponin units of report have been changed to meet the Chest Pain Accreditation requirement, element EC5.M1l2. Troponin units are changed from pg/ml to ng/L. Also, the decimal is removed and results are in whole numbers. PERFORMED BY: [place] [address] PATHOLOGIST COOPERER HARDIK KELLER M.D. Performed By: #### L H, CPEP, ACTH, IGF-1, GH #### [facility] , #### LIPID, [id number], VLADIMIR, FSH, LDLD, RENAL, PRL #### [place] [id number] [facility] XR chest 1V portableon 03-09 XR chest 1V portable [facility] [place] [address] [place] [address] XRay Report Signed Patient: Hien Lam MR#: [id number] : 1975 Acct:[id number] Age/Sex: 49 / F ADM Date: 03/09/25 Loc: ER Room: Type: [facility] ER Attending Dr: Copies to: Santi Pickering Jr, MD Ordering Provider: Santi Pickering Jr, MD Date of Service: 03/09/25 XR/XR chest 1V portable: Chest Pain SINGLE VIEW CHEST CLINICAL HISTORY: Left-sided chest pain starting yesterday, low blood pressure COMPARISON: 02/18/2021 FINDINGS: Left-sided pacemaker device. Unremarkable cardiomediastinal silhouette. Lungs are clear. No effusion or pneumothorax. XR/XR chest 1V portable IMPRESSION: NO ACUTE FINDINGS Impression dictated by: Shay Green M.D. 03/09/2025 11:27 PM Dictation Location: RADIO-PC-29 Transcribed By: [facility]WS 03/09/252326 Dictated By: Shay Green MD 03/09/252325 Signed By: 03/09/252326 Normal [facility] Cardiac Device Check - In Cl inicon 02-28-2025 [facility] Work Phone: Radiology Study observation (narrative) [facility] Work Phone: Perfecto 02-15-2025 CNPN Telephone (PODCCP) ----- HIEN LAM ([id number]) 1975 F Date Time Provider Department 02/15/25 [facility] During your visit today, we recorded the following information about you: Charles Woods 02/15/2025 10:51 AM Signed Reason for call: Patient called and would like to schedule a f/up appointment with Dr. 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), Morbid obesity (HCC), Primary hypertension, Cardiac arrhythmia due to premature depolarization, unspecified type Kind Regards, Aries Monika Rolle 02/16/2025 2:45 PM Signed Lvm to call back to schedule, added viki Monika Rolle 02/19/2025 11:16 AM Signed scheduled Allergies As of Date: 02/15/2025 Noted Allergy Reaction FISH DERIVED 12/10/2016 10 - Anaphylaxis 2 - Rash ADVAIR DISKUS (FLUTICASONE PROPIO*11/16/2018 4 - Hives CYMBALTA (DULOXETINE) 07/16/2022 7 - Swelling DRAMAMINE II (MECLIZINE HCL) 07/16/2022 7 - Swelling PREGABALIN 16 - Unknown INSULIN ASPART 12/10/2016 2 - Rash Date Reviewed: 01/13/2024 Reviewed by: Zuly Ferreira MA - Fully Assessed Reason for Visit: Appointment [186] Prescriptions as of 02/19/2025 - atorvastatin (LIPITOR) 80 mg tablet Take 1 tablet by mouth once daily. - lamoTRIgine (LAMICTAL) 25 mg tablet Take 200 mg by mouth once daily. - BRIVIACT 100 mg tablet Take 200 mg by mouth twice daily. - clotrimazole (LOTRIMIN, CLOTRIM) 1 % cream Clotrimazole [facility] Clotrimazole 1 % External Cream APPLY TWICE A DAY TO FUNGAL RASH IN BELLY BUTTON, UNDER BREASTS, AND I Quantity: 30 Refills: 0 Start : 20-Apr-2017 Active 04-20-2017 [facility] (030[address]) - diclofenac (VOLTAREN) 1 % topical gel APPLY 4 INCHES OF MEDICATION TO EACH KNEE EVERY 4 HOURS NEEDED - TRULICITY 1.5 mg/0.5 mL pen injector INJECT 1.5MG ONCE WEEKLY ON THE SAME DAY EACH WEEK - umeclidinium-vilanterol (ANORO ELLIPTA) 62.5-25 mcg/actuation inhaler Inhale as instructed q 24 HR. - FYCOMPA 4 mg tablet Take 4 mg by mouth daily at bedtime. - mifepristone (KORLYM ORAL) Take 600 mg by mouth once daily. - lubiprostone (AMITIZA) 24 mcg capsule Take 24 mcg by mouth twice daily as needed. - ergocalciferol 50,000 unit capsule (VITAMIN D2, DRISDOL) Take 50,000 Units by mouth one time a week. - ondansetron (ZOFRAN) 8 mg tablet Take 8 mg by mouth every 8 hours as needed for nausea/vomiting. - valACYclovir (VALTREX) 500 mg tablet Take 500 mg by mouth once daily. - montelukast (SINGULAIR) 10 mg tablet Take 10 mg by mouth daily at bedtime. - ertugliflozin (STEGLATRO) 5 mg tablet 15 mg q 24 HR. - spironolactone (ALDACTONE) 25 mg tablet Take 150 mg by mouth twice daily. - tiotropium (SPIRIVA RESPIMAT) 2.5 mcg/actuation inhaler Inhale 2 Puffs as instructed once daily. - aspirin, enteric coated (ECOTRIN LOW STRENGTH) 81 mg EC tablet Take 1 tablet by mouth once daily. - ertugliflozin 5 mg tab Take 5 mg by mouth once daily. - gabapentin (NEURONTIN) 800 mg tablet Take 1,200 mg by mouth three times a day. - topiramate (TOPAMAX) 100 mg tablet Take 100 mg by mouth twice daily. - insulin glargine (LANTUS SOLOSTAR, BASAGLAR KWIKPEN) 100 unit/mL (3 mL) Inject 80 Units subcutaneously daily at bedtime. - exenatide microspheres (BYDUREON) 2 mg/0.65 mL injection Inject 2 mg subcutaneously once each week. - pioglitazone (ACTOS) 15 mg tablet Take 15 mg by mouth once daily. - insulin NPH-insulin regular (HumuLIN 70/30) pen Inject subcutaneously daily with breakfast. - cholecalciferol, Vitamin D3, (VITAMIN D3) 50,000 unit cap capsule Take 50,000 Units by mouth two times a week. - traMADol (ULTRAM) 50 mg tablet Take 50 mg by mouth every 6 hours as needed. - ALBUTEROL INHALATION Inhale as instructed. - pantoprazole DR (PROTONIX) 40 mg tablet Take 40 mg by mouth twice daily. - sucralfate (CARAFATE) 1 gram tablet Take 1 g by mouth four times daily as needed. - budesonide-formoterol (SYMBICORT) 160-4.5 mcg/actuation inhaler Inhale 2 Puffs as instructed twice daily. - triamcinolone acetonide (NASACORT AQ) 55 mcg nasal inhaler Use 2 Sprays in the nose once daily. - albuterol HFA (PROVENTIL HFA, VENTOLIN HFA) 90 mcg/actuation inhaler Inhale 2 Puffs as instructed. - fenofibrate nanocrystallized (TRICOR) 145 mg tablet Take 145 mg by mouth once daily. - lisinopril (ZESTRIL, PRINIVIL) 10 mg tablet Take 5 mg by mouth once daily. - insulin aspart U-100 (NOVOLOG) 100 unit/mL (3 mL) Inject 30 Units subcutaneously three times daily before meals. Taking 1-3 units daily Problem List As Of Date 02/15/2025 Noted Resolved Seizure (HCC) [R56. (more content not included)... Normal [facility] CHEMISTRYOrdered By: Cari Mahajan on 02-02-2025 HbA1c (Bld) [Mass fraction] 7.2 % High <=5.9% [facility] ChemAutoSS [id number] 02-02-2025 HbA1c (Bld) [Mass fraction] 7.2 % High <=5.9 [facility] Comment on above: Performed By: #### [id number] #### [facility] [address] [place] [address] ED Note-Physicianon 01-14-20 ED Note-Physician ED Note-Physician Basic Information Time Seen: Henry Rosenthal PA-C 01/12/2025 09:10 Chief Complaint pt presents with right ear pain since Wednesday. pt vebralized pain moving to the jaw and verbalized hx of ear pain History of Present Illness 49-year-old female comes to the ED for evaluation of right-sided ear pain. Over the last few days she had pain to the right ear with yellow drainage. No fever, chills, nausea, vomiting. No prior treatments. Review of Systems A 10 point review of systems is negative except as noted above. Medical and Surgical History: Reviewed and noted Social history: Lives at home Tobacco: Denies Physical Exam Vitals & Measurements T: 36.6 ???C(Oral) HR: 87(Peripheral) RR: 16 BP: 106/68 SpO2: 98% HT: 165 cm WT: 98 kg BMI: 36 Nurses notes and vital signs reviewed and patient is not hypoxic. General: The patient appears well, resting comfortably. Skin: Warm, dry. Head: Atraumatic. Neck: No JVD. Eye: Normal conjunctiva. Ears, Nose, Mouth, and Throat: Moist mucous membranes. Right external canal is very tender and edematous. There is no active drainage. TM is difficult to visualize due to canal edema. There is no pre or postauricular tenderness or lymphadenopathy. No mastoid tenderness. Cardiovascular: Strong distal pulses. Chest wall: Respiratory: Respirations are nonlabored. Back: Normal range of motion. Musculoskeletal: Normal ROM with no gross deformity. Gastrointestinal: Urological: Neurological: Awake and alert. No focal deficits. Follows commands. Psychiatric: Cooperative. Medical Decision Making Patient has right-sided otitis externa. TM is poorly visualized. Therefore she is treated both oral and topical antibiotics. She is discharged home PCP follow-up. Patient was encouraged to return to the ED if symptoms worsen or change. Assessment/Plan Otitis externa (H60.90: Unspecified otitis externa, unspecified ear) Orders: amoxicillin, 500 mg = 1 cap(s), Oral, TID, X 10 day(s), # 30 cap(s), Refills(s) 0, Pharmacy: [facility]/pharmacy #[id number], 165, cm, 01/12/25 9:13:00 EST, Height/Length Dosing, 98, kg, 01/12/25 9:13:00 EST, Weight Dosing hydrocortisone/neomycin/p olymyxin B otic, 2 drop(s), Otic, QID for 10 day(s), 10 mL, Refill(s) 0, [id number], 165, cm, 01/12/25 9:13:00 EST, Height/Length Dosing, 98, kg, 01/12/25 9:13:00 EST, Weight Dosing Disposition Plan Patient Discharge Condition Disposition: Discharged home Condition: Improved and stable Counseled: Patient and/or family were counseled to workup, results, treatment plan and follow-up recommendations Discharge Prescription List Prescriptions amoxicillin 500 mg Cap, 500 mg= 1 cap(s), Oral, TID hydrocortisone/neomycin/p olymyxin B Otic Tiffanie, 2 drop(s), Otic, QID Follow-up With When Contact Information Mindy Morgan In 3 days 01/15/2025 EDT [address] [place] [address]- Business (1) Additional Instructions: Patient Education Otitis Externa Attestation I performed a substantive part of the MDM during the patient???s E/M visit. I personally made or approved the documented management plan and acknowledge its risk of complications. (Independent Interpretation) My (EKG/X-Ray/US/CT) interpretation as above. (Discussion) Management/test interpretation discussed with APC. This report was transcribed using voice recognition software. Every effort was made to ensure accuracy, however, inadvertently computerized special events manager mistakes may be present. Appropriate healthcare PPE was used in evaluating this patient. 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 Medications Inpatient No active inpatient medications Home Albuterol (Eqv-ProAir HFA) 90 mcg/inh inhalation aerosol, 2 puff(s), Inhalation, q6hr albuterol 0.083% Inh Tiffanie 3 mL, 2.5 mg= 3 mL, Inhalation, q6hr albuterol CFC free 90 mcg/inh Inh Aer w/Adapt 8 gm (Ventolin), 2 puff(s), Inhalation, QID amoxicillin 500 mg Cap, 500 mg= 1 cap(s), Oral, TID aspirin 81 mg Oral EC Tab, 81 mg= 1 tab(s), Oral, Daily azithromycin 250 mg Tab, 250 mg, Oral, As Directed cephalexin 500 mg Cap, 500 mg= 1 cap(s), Oral, QID fenofibrate 145 mg Tab, 145 mg= 1 tab(s), Oral, Daily gabapentin 800 mg Tab, 800 mg= 1 tab(s) (more content not included)... Normal [facility] Comment on above: Result Comment: Elec tronically Signed By: Henry Rosenthal PA-C\.br\Date and Time Signed: 01/12/25 10:12 EST\.br\Electronically Co-Signed By: Ubaldo Nevarez DO\.br\Date and Time Co-Signed: 01/13/25 08:25 EST ED Clinical Summaryon 2024 ED Clinical Summary ED Clinical Summary [place] [id number] ED Clinical Summary Person Information Name: HIEN LAM [facility] Age: 49 Years : 1975 Sex: Female Language: Gabonese PCP: Mindy Morgan MD Marital Status: Single Visit Id: Visit Reason: Jaw pain; Ear pain; RIGHT EAR PAIN & JAW PAIN Speciality: Acuity: 4 Enc Type: Emergency Med Service: Emergency Arrival: 01/12/2025 09:04:04 Discharge: 01/12/2025 09:32:19 LOS: 000 00:28 Checkin: 01/12/2025 09:04:04 Checkout: 01/12/2025 09:32:19 Dispo Type: Home (Routine DC) EVENTS: Event Name Event Status Request Date/Time Start Date/Time Complete Date/Time Arrive Complete 01/12/2025 09:04:04 01/12/2025 09:04:04 01/12/2025 09:04:04 Document Home Meds Request 01/12/2025 09:04:04 Triage Complete 01/12/2025 09:04:04 01/12/2025 09:13:27 01/12/2025 09:13:27 Bed Assign Complete 01/12/2025 09:08:05 01/12/2025 09:08:05 01/12/2025 09:08:05 Dr Exam Complete 01/12/2025 09:08:05 01/12/2025 09:10:44 01/12/2025 09:10:44 RN Exam Complete 01/12/2025 09:08:05 01/12/2025 09:14:59 01/12/2025 09:14:59 Registration Complete 01/12/2025 09:10:44 01/12/2025 09:14:06 01/12/2025 09:14:06 Isolation Screening Request 01/12/2025 09:13:27 Reg Complete Request 01/12/2025 09:14:06 Reg Bed Request Complete 01/12/2025 09:14:06 01/12/2025 09:14:06 01/12/2025 09:14:06 Dr Exam Complete 01/12/2025 09:23:22 01/12/2025 09:23:22 01/12/2025 09:23:22 Registration Request 01/12/2025 09:23:22 Discharge Complete 01/12/2025 09:24:55 01/12/2025 09:32:25 01/12/2025 09:32:25 Transfer Complete 01/12/2025 09:32:25 01/12/2025 09:32:25 01/12/2025 09:32:25 ADDRESS: [address] [place] [id number] PHYS DOC NOTES: MEDICAL INFORMATION: Prescriptions Given: New Medications [id number], [address], [place] [id number], [phone] amoxicillin (amoxicillin 500 mg Cap) 1 Capsules By Mouth 3 times a day for 10 Days. Refills: 0. hydrocortisone/neomycin/p olymyxin B otic (hydrocortisone/neomycin/ polymyxin B Otic Tiffanie) 2 Drops Otic 4 times a day for 10 Days. Refills: 0. Medications to Continue with No Changes Other Medications albuterol (Albuterol (Eqv-ProAir HFA) 90 mcg/inh inhalation aerosol) 2 Puffs Inhalation every 6 hours for 7 Days. Refills: 0. albuterol (albuterol 0.083% Inh Tiffanie 3 mL) 3 Milliliter Inhalation every 6 hours. Q6H and PRN. albuterol (albuterol CFC free 90 mcg/inh Inh Aer w/Adapt 8 gm (Ventolin)) 2 Puffs Inhalation 4 times a day. Refills: 0. aspirin (aspirin 81 mg Oral EC Tab) 1 Tablets By Mouth every day. atorvastatin (Lipitor 20 mg Tab) 2 Tablets By Mouth every day. 40 mg. azithromycin (azithromycin 250 mg Tab) 250 Milligram By Mouth As Directed. Take two tabs by mouth on day one, then one tab daily. Refills: 0. cephalexin (cephalexin 500 mg Cap) 1 Capsules By Mouth 4 times a day. Refills: 0. ergocalciferol (Vitamin D2 2000 intl units oral capsule) ertugliflozin (Steglatro 15 mg oral tablet) fenofibrate (fenofibrate 145 mg Tab) 1 Tablets By Mouth every day. gabapentin (gabapentin 800 mg Tab) 1 Tablets By Mouth 4 times a day. ibuprofen (ibuprofen 600 mg Tab) 1 Tablets By Mouth every 6 hours as needed as needed for pain. Refills: 0. insulin isophane-insulin regular (NovoLIN 70/30 FlexPen subcutaneous suspension) lidocaine topical (lidocaine Top 5% film Patch) 1 Patches Topical every day. apply 12 hours on and 12 hours off daily. Refills: 0. lisinopril (lisinopril 5 mg Tab) 1 Tablets By Mouth every day. mifepristone (Korlym 300 mg oral tablet) 1 Tablets By Mouth every day. mupirocin topical (mupirocin Top 2% Oint) 1 Application Topical 3 times a day. Refills: 0. mupirocin topical (mupirocin Top 2% Oint) 1 Application Topical 3 times a day. Refills: 0. naproxen (Naprosyn 500 mg Tab) 1 Tablets By Mouth 2 times a day. Refills: 0. naproxen (Naprosyn 500 mg Tab) 1 Tablets By Mouth 2 times a day as needed for pain. Refills: 0. pantoprazole (Protonix 40 mg Tab-DR) 1 Tablets By Mouth every day. predniSONE (predniSONE 20 mg Tab) 3 By Mouth every day for 7 Days. Refills: 0. spironolactone (spironolactone 25 mg Tab) tiotropium (Spiriva Respimat 28 ACT 2.5 mcg/inh inhalation aerosol) topiramate (Topamax 200 mg Tab) 1 Tablets By Mouth 2 times a day. valacyclovir (Valtrex) 500 Milligram By Mouth every day. PATIENT EDUCATION INFORMATION: Instructions: Otitis Externa Follow up: With: Address: When: Mindy Morgan [address] [place] [address]., [address] [place] [phone] Business (1) In 3 days 01/15/2025 DIAGNOSIS: Otitis externa Normal [facility] ED Patient Summaryon 025 ED Patient Summary ED Patient Summary [address] [id number] Patient Discharge Instructions Person Information Name: HIEN LAM Age: 49 Years Arrival Date: 01/12/2025 09:04:04 Discharge Diagnosis: Otitis externa Primary Care Physician: Mindy Morgan MD Provider Information Primary Provider: Ubaldo Nevarez DO Advanced Field Service Engineer:Henry Rosenthal PA-C The exam and treatment you received in the Emergency Department were for an urgent problem and are not intended as complete care. It is important that you follow up with a doctor, nurse practitioner, or physician???s medical receptionist medical assistant for ongoing care. If your symptoms become worse or you do not improve as expected and you are unable to reach your usual health care provider, you should return to the Emergency Department. We are available 24 hours a day. HIEN LAM has been given the following list of patient education materials, prescriptions and follow-up instructions: Follow-up Instructions: With: Address: When: Mindy Morgan [address] [place] [address]., [address] [place], [place] [phone] Business (1) In 3 days 01/15/2025 In the event that this physician does not participate in your insurance network, please consult with your insurance company to find a nearby participating provider. Patient Education Materials: Otitis Externa A MESSAGE TO ALL PATIENTS REGARDING OPIOIDS PRESCRIPTION OPIOIDS: WHAT YOU NEED TO KNOW Prescription opioids can be used to help relieve sdfscatd-zx-lqrxbw pain and are often prescribed following a surgery or injury, or for certain health conditions. These medications can be an important part of the treatment but also come with serious risks. It is important to work with your healthcare provider to make sure you are getting the safest, most effective care. WHAT ARE THE RISKS AND SIDE EFFECTS OF OPIOID USE? Prescription opioids carry serious risks of addiction and overdose, especially with prolonged use. An opioid overdose, often marked by slowed breathing, can cause sudden . The use of prescription opioids can have a number of side effects as well, even when taken as directed: ??? Tolerance???meaning you might need to take more of the medication for the same pain relief ??? Physical dependence???meaning you have symptoms of withdrawal when a medication is stopped ??? Increased sensitivity to pain ??? Constipation ??? Nausea, vomiting, and dry mouth ??? Sleepiness and dizziness ??? Confusion ??? Depression ??? Low levels of testosterone that can result in lower sex drive, energy, and strength ??? Itching and sweating RISKS ARE GREATER WITH: ??? History of drug misuse, substance use disorder, or overdose ??? Mental health conditions (such as depression or anxiety) ??? Sleep apnea ??? Older age (65 years and older) ??? Avoid alcohol while taking prescription opioids. Also, unless specifically advised by your health care provider, medications to avoid include: ??? Benzodiazepines (such as Xanax or Valium) ??? Muscle relaxants (such as Soma or Flexeril) ??? Hypnotics (such as Ambien or Lunesta) ??? Other prescription opioids KNOW YOUR OPTIONS Talk to your health care provider about ways to manage your pain that don???t involve prescription opioids. Some of these options may actually work better and have fewer risks and side effects. Options may include: ??? Pain relievers such as acetaminophen, ibuprofen, and naproxen ??? Some medication that are also used for depression or seizures ??? Physical therapy and exercise ??? Cognitive behavioral therapy, a psychological, goal-directed approach, in which patients learn how to modify physical, behavioral, and emotional triggers of pain and stress. IF YOU ARE PRESCRIBED OPIOIDS FOR PAIN: ??? Never take opioids in greater amounts or more often than prescribed. ??? Follow up with your primary health care provider. o Work together to create a plan on how to manage your pain. o Talk about ways to help manage your pain that don???t involve prescription opioids. o Talk about any and all concerns and side effects. ??? Help prevent misuse and abuse o Never sell or share prescription opioids. o Never use another person???s prescription opioids. ??? Store prescription opioids in a secure place and out of reach of others (this may include visitors, children, friends, and family). ??? Safely dispose of unused prescription opioids: Find your community drug take-back program or your pharmacy mail-back program, or flush them down the toilet, following guidance from the Food and Drug Administration (www.fda.gov/Drugs/Resour cesForYou). ??? Visit www.cdc.gov/drugoverdose to learn about the risks of opioids abuse and overdose. ??? If you believe you may be struggling with addiction, tell your health care professio (more content not included)... Normal [facility] BMPon 01-09-2025 Anion gap [Moles/Vol] 13 mmol/L Normal 6-16 [facility] Comment on above: Performed By: #### 2 [id number] #### [facility] [address] [place] [address] Calcium [Mass/Vol] 8.4 mg/dL Low 8.9-11.1 [facility] Comment on above: Performed By: #### 2 [id number] #### [facility] [address] [place] [address] Chloride [Moles/Vol] 108 mmol/L Normal 101-[address] [facility] Comment on above: Performed By: #### 2 [id number] #### [facility] [address] [place] [address] CO2 [Moles/Vol] 15 mmol/L Low 21-31 [facility] Comment on above: Performed By: #### 2 [id number] #### [facility] [address] [place] [address] Creatinine [Mass/Vol] 1.4 mg/dL High 0.5-1.3 [facility] Comment on above: Performed By: #### 2 [id number] #### [facility] [address] [place] [address] Glucose [Mass/Vol] 206 mg/dL High 55-199 [facility] Comment on above: Performed By: #### 2 [id number] #### [facility] [address] [place] [address] Potassium [Moles/Vol] 4.1 mmol/L Normal 3.5-5.3 [facility] Comment on above: Performed By: #### 2 [id number] #### [facility] [address] [place] [address] Sodium [Moles/Vol] 132 mmol/L Low 135-145 [facility] Comment on above: Performed By: #### 2 [id number] #### [facility] [address] [place] [address] Urea nitrogen [Mass/Vol] 30 mg/dL High 5-21 [facility] Comment on above: Performed By: #### 2 [id number] #### [facility] [address] [place] [address] Urea nitrogen/Creatinine [Mass ratio] 21 No Units High 10-20 [facility] Comment on above: Performed By: #### 2 [id number] #### [facility] [address] [place] [address] Bld Gas Venon 01-09-2025 Allens Test Not Applicable Normal [facility] Comment on above: Performed By: #### 1 [id number] #### [facility] [address] [place] [address] Drawn by lab Invalid Interpretation Code [facility] Comment on above: Performed By: #### 1 [id number] #### [facility] [address] [place] [address] FIO2 BG 21 Invalid Interpretation Code [facility] Comment on above: Performed By: #### 1 [id number] #### [facility] [address] [place] [address] Oxygen saturation in Blood 98.4 % High 50.0-70.0 [facility] Comment on above: Performed By: #### 1 [id number] #### [facility] [address] [place] [address] pCO2 Dung 33.4 mmHg Low 38.0-50.0 [facility] Comment on above: Performed By: #### 1 [id number] #### [facility] [address] [place] [address] pH Dung 7.267 Low 7.320-7.430 [facility] Comment on above: Performed By: #### 1 [id number] #### [facility] [address] [place] [address] Sample Site OTHER Normal [facility] Comment on above: Performed By: #### 1 [id number] #### [facility] [address] [place] [address] Sample Type Venous Draw Normal [facility] Comment on above: Performed By: #### 1 [id number] #### [facility] [address] [place] [address] CBC w/ Auto Diffon 5 Basophils/100 WBC (Bld) 0.5 % Normal 0.0-2.0 [facility] Comment on above: Performed By: #### 2 [id number] #### [facility] [address] [place], [place] [id number] Basophils/Leukocytes Auto (Bld) [Pure # fraction] 0.0 E9/L Normal 0.0-0.2 [facility] Comment on above: Performed By: #### 2 [id number] #### [facility] [address] [place] [address] Eosinophils (Bld) [#/Vol] 0.1 E9/L Normal 0.0-0.5 [facility] Comment on above: Performed By: #### 2 [id number] #### [facility] [address] [place] [address] Eosinophils/100 WBC (Bld) 1.0 % Normal 0.0-8.0 [facility] Comment on above: Performed By: #### 2 [id number] #### [facility] [address] [place] [address] Erythrocyte distribution width (RBC) [Ratio] 13.8 % Normal 10.9-14.2 [facility] Comment on above: Performed By: #### 2 [id number] #### [facility] [address] [place] [address] Hematocrit (Bld) [Volume fraction] 55.3 % High 34.0-46.0 [facility] Comment on above: Performed By: #### 2 [id number] #### [facility] [address] [place] [address] Hemoglobin (Bld) [Mass/Vol] 19.0 g/dL High 12.0-16.0 [facility] Comment on above: Performed By: #### 2 [id number] #### [facility] [address] [place] [address] Lymphocytes (Bld) [#/Vol] 1.7 E9/L Normal 1.0-4.0 [facility] Comment on above: Performed By: #### 2 [id number] #### [facility] [address] [place] [address] Lymphocytes/100 WBC (Bld) 17.5 % Normal 14.0-50.0 [facility] Comment on above: Performed By: #### 2 [id number] #### [facility] [address] [place] [address] MCH (RBC) [Entitic mass] 34.1 pg High 27.0-34.0 [facility] Comment on above: Performed By: #### 2 [id number] #### [facility] [address] [place] [address] MCHC (RBC) [Mass/Vol] 34.4 g/dL Normal 31.4-36.0 [facility] Comment on above: Performed By: #### 2 [id number] #### [facility] [address] [place] [address] MCV (RBC) [Entitic vol] 99.3 fL Normal 80.0-100.0 [facility] Comment on above: Performed By: #### 2 [id number] #### [facility] [address] [place] [address] Monocytes (Bld) [#/Vol] 0.5 E9/L Normal 0.2-1.0 [facility] Comment on above: Performed By: #### 2 [id number] #### [facility] [address] [place] [address] Neutrophils (Bld) [#/Vol] 7.3 E9/L Normal 2.0-7.5 [facility] Comment on above: Performed By: #### 2 [id number] #### [facility] [address] [place] [address] Neutrophils/100 WBC (Bld) 76.3 % High 36.0-75.0 [facility] Comment on above: Performed By: #### 2 [id number] #### [facility] [address] [place] [address] Platelet mean volume (Bld) [Entitic vol] 10.0 fL Normal 6.4-10.8 [facility] Comment on above: Performed By: #### 2 [id number] #### [facility] [address] [place] [address] Platelets (Bld) [#/Vol] 180.0 E9/L Normal 150.0-500.0 [facility] Comment on above: Performed By: #### 2 [id number] #### [facility] [address] [place] [address] RBC (Bld) [#/Vol] 5.6 E12/L Normal 4.3-5.9 [facility] Comment on above: Performed By: #### 2 [id number] #### [facility] [address] [place] [address] WBC corrected for nucl RBC Auto (Bld) [#/Vol] 9.6 E9/L Normal 4.0-11.0 [facility] Comment on above: Performed By: #### 2 [id number] #### [facility] [address] [place] [address] CHEMISTRYOrdered By: SYSTEM SYSTEM on 01-09-2025 Ethanol Lvl mg/dL Normal <=11mg/dL [facility] Troponin HS 3.60 pg/mL Low 10.10 - 27.10 pg/mL [facility] Comment on above: Interpretive Data: T he 95% CI (Confidence Interval) PPV (Positive Predictive Value) for myocardial infarction in females is 38 pg/mL, in males 51 pg/mL. The results should be used in conjunction with clinical conditions of myocardial infarction. (Access High Sensitivity Troponin I Instructions For Use, Yael [place], June 2018) Albumin [Mass/Vol] 4.4 g/dL Normal 3.3 - 5.0 gm/dL [facility] Albumin/Globulin [Mass ratio] 1.4 {ratio} Normal 1.1 - 2.2 [facility] ALP [Catalytic activity/Vol] 46 [iU]/d Normal 21 - 98 Int._Unit/L [facility] ALT No additional P-5'-P [Catalytic activity/Vol] 32 [iU]/d Normal 6 - 46 Int._Unit/L [facility] Anion gap [Moles/Vol] 13 mmol/L Normal 6 - 16 mEq/L R emisol Chem AST [Catalytic activity/Vol] 37 [iU]/d Normal 5 - 43 Int._Unit/L [facility] Bilirubin [Mass/Vol] 0.6 mg/dL Normal 0.0 - 1 .1 mg/dL [facility] Bilirubin.direct [Mass/Vol] 0.1 mg/dL Normal 0.0 - 0.4 mg/dL [facility] Bilirubin.indirect [Mass or moles/Vol] 0.5 mg/dL Normal 0.1 - 0.9 mg/dL [facility] Calcium [Mass/Vol] 8.4 mg/dL Low 8.9 - 11. 1 mg/dL [facility] Chloride [Moles/Vol] 108 mmol/L Normal 101 - 1 11 mmol/L [facility] CO2 [Moles/Vol] 15 mmol/L Low 21 - 31 mmol/L [facility] Creatinine [Mass/Vol] 1.4 mg/dL High 0.5 - 1.3 mg/dL [facility] eGFR 46 mL/min/1.73 m2 Low >=59mL/min /1 .73 m2 [facility] Globulin (S) [Mass/Vol] 3.1 g/dL Normal 1.4 - 4.0 gm/dL [facility] Glucose [Mass/Vol] 206 mg/dL High 55 - 199 mg/dL [facility] Lipase [Catalytic activity/Vol] 21 U/L Normal 13 - 58 unit/L [facility] Potassium [Moles/Vol] 4.1 mmol/L Normal 3.5 - 5.3 mmol/L [facility] Protein [Mass/Vol] 7.5 g/dL Normal 6.0 - 7.8 gm/dL [facility] Sodium [Moles/Vol] 132 mmol/L Low 135 - 145 mmol/L [facility] Troponin HS 4.10 pg/mL Low 10.10 - 27.10 pg/mL [facility] Comment on above: Interpretive Data: T he 95% CI (Confidence Interval) PPV (Positive Predictive Value) for myocardial infarction in females is 38 pg/mL, in males 51 pg/mL. The results should be used in conjunction with clinical conditions of myocardial infarction. (Access High Sensitivity Troponin I Instructions For Use, Yael Davidson, June 2018) Urea nitrogen [Mass/Vol] 30 mg/dL High 5 - 21 mg/dL [facility] Urea nitrogen/Creatinine [Mass ratio] 21 mg/mg High 10 - 20 [facility] COAGULATIONOrdered By: Delores Fried on 01-09-2025 aPTT Coag (PPP) [Time] 33.6 s Normal 25.1 - 36.5 second(s) [facility] [place] [facility] Comment on above: Interpretive Data: P arameter 15 days - 4 weeks 1 - 5 months 6 - 11 months 1 - 5 years 6 - 10 years 11 - 17 years PTT Mean: 35.4 (27.6-45.6) Mean: 33.5 (24.8-40.7) Mean: 32.4 (25.1-40.7) Mean: 31.6 (24.0-39.2) Mean: 31.6 (26.9-38.7) Mean: 31.0 (24.6-38.4) Pediatric Reference ranges were obtained from a study by Jesus Manuel Thurman et al. prepared from 1437 samples obtained at 7 different centers using the same coagulation reagent and instrumentation as [facility] [place]. Currently there are no coagulation studies available worldwide for children to 14 days, and no normal ranges. Heparin therapeutic range (represented by Anti-Factor Xa activity of 0.2 - 0.4 U/mL) corresponds to PTT of 56.6 - 109.0 sec. INR Coag (PPP) [Relative time] 1.00 {INR} Invalid Interpretation Code [facility] [place] [facility] Comment on above: Interpretive Data: I NR results are specifically intended to assess patients stabilized on long-term Anticoagulation therapy suggested INR s Less Intensive Anticoagulation 2.0 3.0 Conventional Range 3.0 4.5 PT Coag (PPP) [Time] 11.2 s Normal 9.4 - 1 2.5 second(s) [facility] [place] [facility] Comment on above: Interpretive Data: 1 5 days - 4 weeks 1 - 5 months 6 -11 months 1-5 years 6-10 years 11 -17 years Mean: 11.2 (9.5-12.6) Mean: 11.0 (9.7-12.8) Mean: 11.0 (9.8-13.0) Mean: 11.3 (9.9-13.4) Mean: 11.7 (10.0-14.6) Mean: 11.8 (10.0 - 14.1) Pediatric Reference ranges were obtained from a study by Jesus Manuel Thurman et al. prepared from 1437 samples obtained at 7 different centers using the same coagulation reagent and instrumentation as [facility] [place]. Currently there are no coagulation studies available worldwide for children to 14 days, and no normal ranges. ED Clinical Summaryon 2024 ED Clinical Summary ED Clinical Summary [place] [id number] ED Clinical Summary Person Information Name: HIEN LAM [facility] Age: 49 Years : 1975 Sex: Female Language: Gabonese PCP: Mindy Morgan MD Marital Status: Single Phone: Visit Id: Visit Reason: Chest pain; Shortness of breath; SOB, CP Speciality: Acuity: 2 Enc Type: Emergency Med Service: Emergency Arrival: 01/09/2025 12:25:58 Discharge: 01/09/2025 17:38:58 LOS: 000 05:13 Checkin: 01/09/2025 12:25:58 Checkout: 01/09/2025 17:38:58 Dispo Type: Home (Routine DC) EVENTS: Event Name Event Status Request Date/Time Start Date/Time Complete Date/Time Arrive Complete 01/09/2025 12:25:58 01/09/2025 12:25:58 01/09/2025 12:25:58 Document Home Meds Request 01/09/2025 12:25:58 Triage Complete 01/09/2025 12:25:58 01/09/2025 12:41:27 01/09/2025 12:41:27 Bed Assign Complete 01/09/2025 12:28:29 01/09/2025 12:28:29 01/09/2025 12:28:29 Dr Exam Complete 01/09/2025 12:28:29 01/09/2025 12:32:10 01/09/2025 12:32:10 RN Exam Complete 01/09/2025 12:28:29 01/09/2025 13:05:21 01/09/2025 13:05:21 EKG Complete 01/09/2025 12:31:14 01/09/2025 12:38:20 Registration Complete 01/09/2025 12:32:10 01/09/2025 13:18:41 01/09/2025 13:18:41 Pending Labs Complete 01/09/2025 12:33:26 01/09/2025 14:32:24 Lab Complete 01/09/2025 12:33:26 01/09/2025 13:21:32 Patient Care Request 01/09/2025 12:33:26 RT Request 01/09/2025 12:33:26 X-Ray Complete 01/09/2025 12:33:26 01/09/2025 12:37:16 01/09/2025 12:50:24 Isolation Screening Request 01/09/2025 12:41:28 Wet Read Complete 01/09/2025 12:50:24 01/09/2025 13:03:44 01/09/2025 13:03:44 Pending Labs Complete 01/09/2025 12:59:15 01/09/2025 12:59:15 01/09/2025 13:21:32 Lab Complete 01/09/2025 12:59:15 01/09/2025 12:59:15 01/09/2025 13:21:32 Pending Labs Cancel 01/09/2025 13:02:48 01/09/2025 13:14:14 Lab Cancel 01/09/2025 13:02:48 01/09/2025 13:14:14 Pending Labs Complete 01/09/2025 13:10:32 01/09/2025 13:10:32 01/09/2025 13:10:32 Pending Labs Complete 01/09/2025 13:15:24 01/09/2025 13:15:24 01/09/2025 13:30:20 Lab Complete 01/09/2025 13:15:24 01/09/2025 13:15:24 01/09/2025 13:30:20 Reg Complete Request 01/09/2025 13:18:41 Reg Bed Request Complete 01/09/2025 13:18:41 01/09/2025 13:18:41 01/09/2025 13:18:41 Pending Labs Complete 01/09/2025 13:38:47 01/09/2025 14:29:02 Lab Complete 01/09/2025 13:38:47 01/09/2025 14:24:20 RT Tx/ABG Request 01/09/2025 13:38:47 Meds Admin Request 01/09/2025 13:38:47 Discharge Complete 01/09/2025 17:24:46 01/09/2025 17:39:06 01/09/2025 17:39:06 Transfer Complete 01/09/2025 17:39:06 01/09/2025 17:39:06 01/09/2025 17:39:06 ADDRESS: [address] [place] [phone] PHYS DOC NOTES: MEDICAL INFORMATION: Prescriptions Given: New Medications [id number], [address], [place] [id number], [phone] azithromycin (azithromycin 250 mg Tab) 250 Milligram By Mouth As Directed. Take two tabs by mouth on day one, then one tab daily. Refills: 0. predniSONE (predniSONE 20 mg Tab) 3 By Mouth every day for 7 Days. Refills: 0. Medications to Continue Taking That Have Changed [id number], [address], [place] [id number], [phone] START: albuterol (Albuterol (Eqv-ProAir HFA) 90 mcg/inh inhalation aerosol) 2 Puffs Inhalation every 6 hours for 7 Days. Refills: 0. Other Medications START: albuterol (albuterol 0.083% Inh Tiffanie 3 mL) 3 Milliliter Inhalation every 6 hours. Q6H and PRN. START: albuterol (albuterol CFC free 90 mcg/inh Inh Aer w/Adapt 8 gm (Ventolin)) 2 Puffs Inhalation 4 times a day. Refills: 0. Medications to Continue with No Changes Other Medications aspirin (aspirin 81 mg Oral EC Tab) 1 Tablets By Mouth every day. atorvastatin (Lipitor 20 mg Tab) 2 Tablets By Mouth every day. 40 mg. cephalexin (cephalexin 500 mg Cap) 1 Capsules By Mouth 4 times a day. Refills: 0. ergocalciferol (Vitamin D2 2000 intl units oral capsule) ertugliflozin (Steglatro 15 mg oral tablet) fenofibrate (fenofibrate 145 mg Tab) 1 Tablets By Mouth every day. gabapentin (gabapentin 800 mg Tab) 1 Tablets By Mouth 4 times a day. ibuprofen (ibuprofen 600 mg Tab) 1 Tablets By Mouth every 6 hours as needed as needed for pain. Refills: 0. insulin isophane-insulin regular (NovoLIN 70/30 FlexPen subcutaneous suspension) lidocaine topical (lidocaine Top 5% film Patch) 1 Patches Topical every day. apply 12 hours on and 12 hours off daily. Refills: 0. lisinopril (lisinopril 5 mg Tab) 1 Tablets By Mouth every day. mifepristone (Korlym 300 mg oral tablet) 1 Tablets By Mouth every day. mupirocin topical (mupirocin Top 2% Oint) 1 Application Topical 3 times a day. Refills: 0. mupirocin topical (mupirocin Top 2% Oint) 1 Application Topical 3 times a day. Refills: 0. naproxen (Naprosyn 500 mg Tab) 1 Tablets By Mouth 2 times a day. Refills: 0. naproxen (Naprosyn 500 mg Tab) 1 Tablets By Mouth 2 times a day as needed for pain. Refills: 0. pantoprazole (Protonix 40 mg Tab-DR) 1 Tablets By Mouth every (more content not included)... Normal [facility] ED Note-Physicianon 01-10-20 ED Note-Physician ED Note-Physician Basic Information Time Seen: Ubaldo Nevarez DO 01/09/2025 12:32 Chief Complaint pt states she has been having chest pain and SOB x2 days and states CP radiates to back, up her neck and into her jaw. pt states she had a pacemaker placed in august. History of Present Illness 49 female presents emergency department with chest pain shortness of breath. Patient states that this started over the last 2 days. She describes a substernal chest pain with radiation into her back. She does complain of some discomfort into her neck and jaw. She denies any history of CAD or stents she is not on any blood thinners but does state that she has history of pacemaker. She has had a stress test she is not sure if this was negative or positive she cannot recall if she ended up with a heart catheterization. Patient does have history of both asthma as well as COPD has been short of breath with this and mild cough as well no fevers. Patient does describe generalized abdominal discomfort no urinary symptoms no pain or swelling into her legs. Patient does have the following CAD risk factors: Tobacco use, family history, hypertension, diabetes. No other aggravating or relieving factors no other associated symptoms no other prior treatments or complaints. Family: Reviewed and noncontributory Social: lives at home Review of systems negative unless otherwise specified in the HPI. Physical Exam Vitals & Measurements T: 36.8 ???C(Oral) HR: 80(Peripheral) RR: 18 BP: 90/51 SpO2: 96% HT: 165 cm WT: 98 kg BMI: 36 General: The patient appears well and in no apparent distress. Patient is resting comfortably on cart. Skin: Warm, dry, no pallor noted. Head: Normocephalic, atraumatic Neck: No JVD Eye: PERRLA, EOMI ENT: Moist mucus membranes Cardiovascular: Regular rate normal peripheral perfusion Respiratory: No respiratory distress no accessory muscle use no obvious audible wheezing Chest Wall: no deformity Musculoskeletal: normal ROM, no deformity, no swelling GI: Soft no obvious distention. No rebound or rigidity. No guarding. No tenderness. Neurological: A&O moves all extremities equal strength and symmetry Psychiatric: Cooperative and appropriate Procedure Heart Score for Major Cardiac Event History: Example factors for history - pattern of chest pain, onset, duration, relation with exercise, stress or cold, localization, concominant symptoms. reaction to sublingual nitrates, [] Highly suspicious +2 [] Moderately suspicious +1 [x] Slightly suspicious 0 EKG: [] Significant ST-Depression +2 [] Non specific repolarization disturbance +1 [x] Normal 0 Age: [] >= 65 +2 [x] 45-65 + 1 [] <45 0 Risk Factors: (HLD, HTN, DM, Cigarette Smoking, Pos Family Hx, Obesity) [x] >3 risk factors or hx of atheroslerotic disease + 2 [] 1-2 risk factors + 1 [] No risk factors known 0 Troponin: [] >= 3X normal + 2 [] 1-3X normal + 1 [x] <= Normal 0 -------- [] 0-3 Points 0.9 - 1.7% risk of major adverse cardiac event in 6 weeks [4] 4-6 Points 12-16.6% risk of major adverse cardiac event in 6 weeks [] 7-10 Points 50-65% risk of major adverse cardiac event in 6 weeks -------- [] 0-3 Points with 2 sets of negative cardiac markers <1% risk of major adverse cardiac event in 30 days. -------- Medical Decision Making Workup in the ER has been reviewed and noted. EKG chest x-ray and cardiac enzymes essentially benign. However the patient did have CO 2 of 15 and I did discuss this with her. Patient states that she is really been having quite a bit of diarrhea. This would explain the dehydration the elevated BUN and creatinine with mild ADI as well. Therefore patient is treated here with IV fluid bolus. She has multiple cardiac enzymes that are negative and her heart score is low at 4. Patient states that she is comfortable being discharged home at this time. She will be discharged home on medications for likely COPD exacerbation educated on rehydration strategies. She will be prescribed Zithromax prednisone and albuterol and educated to return if symptoms should change or worsen. I did offer her admission and she declined stating that she is feeling much better. Assessment/Plan Chest pain (R07.9: Chest pain, unspecified) COPD exacerbation (J44.1: Chronic obstructive pulmonary disease with (acute) exacerbation) Dehydration (E86.0: Dehydration) Orders: albuterol, 2 puff(s), Inhalation, q6hr for 7 day(s), 6.7 gm, Refill(s) 0, [id number], 165, cm, 01/09/25 12:41:00 EST, Height/Length Dosing, 98, kg, 01/09/25 12:41:00 EST, Weight Dosing azithromycin, 250 mg, Oral, As Directed, Take two tabs by mouth on day one, then one tab daily, # 6 tab(s), Refills(s) 0, Pharmacy: [id number], 165, cm, 01/09/25 12:41:00 EST, Height/Length Dosing, 98, kg, 01/09/25 12:41:00 EST, Weight (more content not included)... Normal [facility] Comment on above: Result Comment: Elec tronically Signed By: Ubaldo Nevarez DO\.br\Date and Time Signed: 01/09/25 17:26 EST ED Patient Education Noteon 01-09-2025 ED Patient Education Note ED Patient Education Note Normal [facility] ED Patient Summaryon 025 ED Patient Summary ED Patient Summary [place] [id number] Patient Discharge Instructions Person Information Name: HIEN LAM Age: 49 Years Arrival Date: 01/09/2025 12:25:58 Discharge Diagnosis: COPD exacerbation; Chest pain; Dehydration Primary Care Physician: Eddie SHANKS, Mindy F Provider Information Primary Provider: Ubaldo Nevarez DO Advanced Field Service Engineer:None The exam and treatment you received in the Emergency Department were for an urgent problem and are not intended as complete care. It is important that you follow up with a doctor, nurse practitioner, or physician???s medical receptionist medical assistant for ongoing care. If your symptoms become worse or you do not improve as expected and you are unable to reach your usual health care provider, you should return to the Emergency Department. We are available 24 hours a day. HIEN LAM has been given the following list of patient education materials, prescriptions and follow-up instructions: Follow-up Instructions: With: Address: When: Mindy Morgan [address] [place], [place] [id number] Business (1) In 3 days In the event that this physician does not participate in your insurance network, please consult with your insurance company to find a nearby participating provider. Patient Education Materials: A MESSAGE TO ALL PATIENTS REGARDING OPIOIDS PRESCRIPTION OPIOIDS: WHAT YOU NEED TO KNOW Prescription opioids can be used to help relieve fwkgqomt-jx-gzbwiz pain and are often prescribed following a surgery or injury, or for certain health conditions. These medications can be an important part of the treatment but also come with serious risks. It is important to work with your healthcare provider to make sure you are getting the safest, most effective care. WHAT ARE THE RISKS AND SIDE EFFECTS OF OPIOID USE? Prescription opioids carry serious risks of addiction and overdose, especially with prolonged use. An opioid overdose, often marked by slowed breathing, can cause sudden . The use of prescription opioids can have a number of side effects as well, even when taken as directed: ??? Tolerance???meaning you might need to take more of the medication for the same pain relief ??? Physical dependence???meaning you have symptoms of withdrawal when a medication is stopped ??? Increased sensitivity to pain ??? Constipation ??? Nausea, vomiting, and dry mouth ??? Sleepiness and dizziness ??? Confusion ??? Depression ??? Low levels of testosterone that can result in lower sex drive, energy, and strength ??? Itching and sweating RISKS ARE GREATER WITH: ??? History of drug misuse, substance use disorder, or overdose ??? Mental health conditions (such as depression or anxiety) ??? Sleep apnea ??? Older age (65 years and older) ??? Avoid alcohol while taking prescription opioids. Also, unless specifically advised by your health care provider, medications to avoid include: ??? Benzodiazepines (such as Xanax or Valium) ??? Muscle relaxants (such as Soma or Flexeril) ??? Hypnotics (such as Ambien or Lunesta) ??? Other prescription opioids KNOW YOUR OPTIONS Talk to your health care provider about ways to manage your pain that don???t involve prescription opioids. Some of these options may actually work better and have fewer risks and side effects. Options may include: ??? Pain relievers such as acetaminophen, ibuprofen, and naproxen ??? Some medication that are also used for depression or seizures ??? Physical therapy and exercise ??? Cognitive behavioral therapy, a psychological, goal-directed approach, in which patients learn how to modify physical, behavioral, and emotional triggers of pain and stress. IF YOU ARE PRESCRIBED OPIOIDS FOR PAIN: ??? Never take opioids in greater amounts or more often than prescribed. ??? Follow up with your primary health care provider. o Work together to create a plan on how to manage your pain. o Talk about ways to help manage your pain that don???t involve prescription opioids. o Talk about any and all concerns and side effects. ??? Help prevent misuse and abuse o Never sell or share prescription opioids. o Never use another person???s prescription opioids. ??? Store prescription opioids in a secure place and out of reach of others (this may include visitors, children, friends, and family). ??? Safely dispose of unused prescription opioids: Find your community drug take-back program or your pharmacy mail-back program, or flush them down the toilet, following guidance from the Food and Drug Administration (www.fda.gov/Drugs/Resour cesForYou). ??? Visit www.cdc.gov/drugoverdose to learn about the risks of opioids abuse and overdose. ??? If you believe you may be struggling with addiction, tell your health doggy daycare activities director and ask for g (more content not included)... Normal [facility] Ethanolon 01-09-2025 Ethanol Lvl <10 Normal <=11 [facility] Comment on above: Performed By: #### 2 [id number] #### [facility] [address] [place] [address] Blood GasesOrdered By: Macho Sterling on 01-09-2025 Allens Test Not Applicable (01/09/25 2:25 PM) Normal [facility] Resp Auto SS Drawn by lab Invalid Interpretation Code [facility] Resp Auto SS pCO2 Dung 33.4 mm[Hg] Low 38.0 - 50.0 mmHg [facility] Resp Auto SS pH (Bld) 7.267 [pH] Low 7.320 - 7.430 [facility] Resp Auto SS Sample Site OTHER (01/09/25 2:25 PM) Normal [facility] Resp Auto SS Sample Type Venous Draw (01/09/25 2:25 PM) Normal [facility] Resp Auto SS Sodium [Moles/Vol] 21 mmol/L Invalid Interpretation Code [facility] Resp Auto SS HEMATOLOGYOrdered By: SYSTEM SYSTEM on 01-09-2025 Basophils/100 WBC (Bld) 0.5 % Normal 0.0 - 2.0 % Remisol Heme Basophils/Leukocytes Auto (Bld) [Pure # fraction] 0.0 E9/L Normal 0.0 - 0.2 E9/L Remisol Heme Eosinophils (Bld) [#/Vol] 0.1 E9/L Normal 0.0 - 0.5 E9/L Remisol Heme Eosinophils/100 WBC (Bld) 1.0 % Normal 0.0 - 8.0 % Remisol Heme Erythrocyte distribution width (RBC) [Ratio] 13.8 % Normal 10.9 - 14.2 % Remisol Heme Hematocrit (Bld) [Volume fraction] 55.3 % High 34.0 - 46.0 % Remisol Heme Hemoglobin (Bld) [Mass/Vol] 19.0 g/dL High 12.0 - 16.0 gm/dL Remisol Heme Lymphocytes (Bld) [#/Vol] 1.7 E9/L Normal 1.0 - 4.0 E9/L Remisol Heme Lymphocytes/100 WBC (Bld) 17.5 % Normal 14.0 - 50.0 % Remisol Heme MCH (RBC) [Entitic mass] 34.1 pg High 27.0 - 34.0 pg Remisol Heme MCHC (RBC) [Mass/Vol] 34.4 g/dL Normal 31.4 - 36.0 gm/dL Remisol Heme MCV (RBC) [Entitic vol] 99.3 fL Normal 80.0 - 100.0 fL Rem[facility] Heme Monocytes (Bld) [#/Vol] 0.5 E9/L Normal 0.2 - 1.0 E9/L Remisol Heme Monocytes/100 WBC (Bld) 4.7 % Normal 4.0 - 14.0 % Remisol Heme Neutrophils (Bld) [#/Vol] 7.3 E9/L Normal 2.0 - 7.5 E9/L Remisol Heme Neutrophils/100 WBC (Bld) 76.3 % High 36.0 - 75.0 % [facility] Heme Platelet mean volume (Bld) [Entitic vol] 10.0 fL Normal 6.4 - 10.8 fL Remisol Heme Platelets (Bld) [#/Vol] 180.0 E9/L Normal 150.0 - 500.0 E9/L Remisol Heme RBC (Bld) [#/Vol] 5.6 E12/L Normal 4.3 - 5.9 E12/L Remisol Heme WBC corrected for nucl RBC Auto (Bld) [#/Vol] 9.6 E9/L Normal 4.0 - 11.0 E9/L Remisol Heme Hep Func Panelon 01-09-2025 Albumin [Mass/Vol] 4.4 g/dL Normal 3.3-5.0 [facility] Comment on above: Performed By: #### 2 [id number] #### [facility] [address] [place] [address] Albumin/Globulin (S) [Mass conc ratio] 1.4 Normal 1.1-2.2 [facility] Comment on above: Performed By: #### 2 [id number] #### [facility] [address] [place] [address] ALP [Catalytic activity/Vol] 46 Int._Unit/L Normal 21-98 [facility] Comment on above: Performed By: #### 2 [id number] #### [facility] [address] [place] [address] ALT No additional P-5'-P [Catalytic activity/Vol] 32 Int._Unit/L Normal 6-46 [facility] Comment on above: Performed By: #### 2 [id number] #### [facility] [address] [place] [address] AST [Catalytic activity/Vol] 37 Int._Unit/L Normal 5-43 [facility] Comment on above: Performed By: #### 2 [id number] #### [facility] [address] [place] [address] Bilirubin [Mass/Vol] 0.6 mg/dL Normal 0.0-1.[address] [facility] Comment on above: Performed By: #### 2 [id number] #### [facility] [address] [place] [address] Bilirubin.direct [Mass/Vol] 0.1 mg/dL Normal 0.0-0.4 [facility] Comment on above: Performed By: #### 2 [id number] #### [facility] [address] [place] [address] Bilirubin.indirect [Mass or moles/Vol] 0.5 mg/dL Normal 0.1-0.9 [facility] Comment on above: Performed By: #### 2 [id number] #### [facility] [address] [place] [address] Globulin (S) [Mass/Vol] 3.1 g/dL Normal 1.4-4.0 [facility] Comment on above: Performed By: #### 2 [id number] #### [facility] [address] [place] [address] Protein [Mass/Vol] 7.5 g/dL Normal 6.0-7.8 [facility] Comment on above: Performed By: #### 2 [id number] #### [facility] [address] [place] [address] Lipase Levelon 01-09-2025 Lipase [Catalytic activity/Vol] 21 U/L Normal 13-58 [facility] Comment on above: Performed By: #### 2 [id number] #### [facility] [address] [place] [address] PT & PTTon 01-09-2025 aPTT Coag (PPP) [Time] 33.6 second(s) Normal 25.1-36.5 [facility] Comment on above: Result Comment: Para meter 15 days - 4 weeks 1 - 5 months 6 - 11 months 1 - 5 years 6 - 10 years 11 - 17 years PTT Mean: 35.4 (27.6-45.6) Mean: 33.5 (24.8-40.7) Mean: 32.4 (25.1-40.7) Mean: 31.6 (24.0-39.2) Mean: 31.6 (26.9-38.7) Mean: 31.0 (24.6-38.4) Pediatric Reference ranges were obtained from a study by Jesus Manuel Thurman et al. prepared from 1437 samples obtained at 7 different centers using the same coagulation reagent and instrumentation as [facility]. Currently there are no coagulation studies available worldwide for children to 14 days, and no normal ranges. Heparin therapeutic range (represented by Anti-Factor Xa activity of 0.2 - 0.4 U/mL) corresponds to PTT of 56.6 - 109.0 sec. Performed By: #### 1 [id number] #### [facility] [address] [place] [address] INR Coag (PPP) [Relative time] 1.00 {INR} Invalid Interpretation Code [facility] Comment on above: Result Comment: INR results are specifically intended to assess patients stabilized on long-term Anticoagulation therapy suggested INR???s ???Less Intensive Anticoagulation??? 2.0 ??? 3.0 Conventional Range 3.0 ??? 4.5 Performed By: #### 1 [id number] #### [facility] [address] [place] [address] PT Coag (PPP) [Time] 11.2 second(s) Normal 9.4-12.5 [facility] Comment on above: Result Comment: 15 d ays - 4 weeks 1 - 5 months 6 -11 months 1- 5 years 6-10 years 11 -17 years Mean: 11.2 (9.5-12.6) Mean: 11.0 (9.7-12.8) Mean: 11.0 (9.8-13.0) Mean: 11.3 (9.9-13.4) Mean: 11.7 (10.0-14.6) Mean: 11.8 (10.0 - 14.1) Pediatric Reference ranges were obtained from a study by anastasia Lester al. prepared from 1437 samples obtained at 7 different centers using the same coagulation reagent and instrumentation as [facility]. Currently there are no coagulation studies available worldwide for children to 14 days, and no normal ranges. Performed By: #### 1 [id number] #### [facility] [address] [place] [address] Troponin 0 Hr.on 01-09-2025 Troponin HS 4.10 pg/mL Low 10.10-27.10 [facility] Comment on above: Result Comment: The 95% CI (Confidence Interval) PPV (Positive Predictive Value) for myocardial infarction in females is 38 pg/mL, in males 51 pg/mL. The results should be used in conjunction with clinical conditions of myocardial infarction. (Access High Sensitivity Troponin I Instructions For Use, [employer], June 2018) Performed By: #### 1 [id number] #### [facility] [address] [place] [address] Troponin 1 Hr.on 01-09-2025 Troponin HS 3.60 pg/mL Low 10.10-27.10 [facility] Comment on above: Order Comment: 1350 Result Comment: The 95% CI (Confidence Interval) PPV (Positive Predictive Value) for myocardial infarction in females is 38 pg/mL, in males 51 pg/mL. The results should be used in conjunction with clinical conditions of myocardial infarction. (Access High Sensitivity Troponin I Instructions For Use, [employer], June 2018) Performed By: #### 1 [id number] #### [facility] [address] [place] [address] XR Chest Single Viewon 01-09 XR Chest Single View Exam Date/Time: 01/09/2025 12:50 EST Reason for Exam: Chest pain Report IMPRESSION: NO RADIOGRAPHIC EVIDENCE OF ACUTE INTRATHORACIC PROCESS. EXAM: XR Chest Single View History: Chest pain Technique: Portable AP view of the chest. Comparison: 09/24/2020 Findings: Left-sided pacemaker is present. The cardiomediastinal silhouette is within normal limits. No pneumothorax, pleural effusion, or consolidation. Linear right midlung scarring and linear left lung base atelectasis. No acute osseous abnormality. Ordering Provider: Ubaldo Nevarez FINAL REPORT Dictated: 01/09/2025 1:20 pm Israel Varghese DO Signed (Electronic Signature): 01/09/2025 1:20 pm Signed by: Israel Varghese DO Transcribed by: DIAMANTE Technologist: ANOOP, Normal [facility] eGFRon 01-09-2025 eGFR 46 mL/min/1.73 m2 Low >=59 [facility] [facility] Comment on above: Performed By: #### 1 [id number] #### [facility] [address] [place] [address] BMPon 11-10-2024 Anion gap [Moles/Vol] 12 mmol/L Normal 6-16 [facility] Comment on above: Performed By: #### 2 [id number] #### [facility] [address] [place] [address] Calcium [Mass/Vol] 9.0 mg/dL Normal 8.9-11.1 [facility] Comment on above: Performed By: #### 2 [id number] #### [facility] [address] [place] [address] Chloride [Moles/Vol] 110 mmol/L Normal 101-[address] [facility] Comment on above: Performed By: #### 2 [id number] #### [facility] [address] [place] [address] CO2 [Moles/Vol] 18 mmol/L Low 21-31 [facility] Comment on above: Performed By: #### 2 [id number] #### [facility] [address] [place] [address] Creatinine [Mass/Vol] 0.8 mg/dL Normal 0.5-1.3 [facility] Comment on above: Performed By: #### 2 [id number] #### [facility] [address] [place] [address] Glucose [Mass/Vol] 190 mg/dL Normal 55-199 [facility] Comment on above: Performed By: #### 2 [id number] #### [facility] [address] [place] [address] Potassium [Moles/Vol] 4.3 mmol/L Normal 3.5-5.3 [facility] Comment on above: Performed By: #### 2 [id number] #### [facility] [address] [place] [address] Sodium [Moles/Vol] 136 mmol/L Normal 135-145 [facility] Comment on above: Performed By: #### 2 [id number] #### [facility] [address] [place] [address] Urea nitrogen [Mass/Vol] 20 mg/dL Normal 5-21 [facility] Comment on above: Performed By: #### 2 [id number] #### [facility] [address] [place] [address] Urea nitrogen/Creatinine [Mass ratio] 25 No Units High 10-20 [facility] Comment on above: Performed By: #### 2 [id number] #### [facility] [address] [place] [address] CBC w/Indiceson 11-10-2024 Erythrocyte distribution width (RBC) [Ratio] 13.6 % Normal 10.9-14.2 [facility] Comment on above: Performed By: #### 2 [id number] #### [facility] [address] [place] [address] Hematocrit (Bld) [Volume fraction] 54.6 % High 34.0-46.0 [facility] Comment on above: Performed By: #### 2 [id number] #### [facility] [address] [place] [address] Hemoglobin (Bld) [Mass/Vol] 18.7 g/dL High 12.0-16.0 [facility] Comment on above: Performed By: #### 2 [id number] #### [facility] [address] [place] [address] MCH (RBC) [Entitic mass] 34.7 pg High 27.0-34.0 [facility] Comment on above: Performed By: #### 2 [id number] #### [facility] [address] [place] [address] MCHC (RBC) [Mass/Vol] 34.2 g/dL Normal 31.4-36.0 [facility] Comment on above: Performed By: #### 2 [id number] #### [facility] [address] [place] [address] MCV (RBC) [Entitic vol] 101.2 fL High 80.0-100.0 [facility] Comment on above: Performed By: #### 2 [id number] #### [facility] [address] [place] [address] Platelet mean volume (Bld) [Entitic vol] 10.1 fL Normal 6.4-10.8 [facility] Comment on above: Performed By: #### 2 [id number] #### [facility] [address] [place] [address] Platelets (Bld) [#/Vol] 208.0 E9/L Normal 150.0-500.0 [facility] Comment on above: Performed By: #### 2 [id number] #### [facility] [address] [place] [address] RBC (Bld) [#/Vol] 5.4 E12/L Normal 4.3-5.9 [facility] Comment on above: Performed By: #### 2 [id number] #### [facility] [address] [place] [address] RBC size Nom (Bld) NORMAL Invalid Interpretation Code [facility] Comment on above: Performed By: #### 2 [id number] #### [facility] [address] [place] [address] WBC corrected for nucl RBC Auto (Bld) [#/Vol] 11.0 E9/L Normal 4.0-11.0 [facility] Comment on above: Performed By: #### 2 [id number] #### [facility] [address] [place] [address] CHEMISTRYOrdered By: SYSTEM SYSTEM on 11-10-2024 Albumin [Mass/Vol] 4.3 g/dL Normal 3.3 - 5.0 gm/dL [facility] Albumin/Globulin [Mass ratio] 1.4 {ratio} Normal 1.1 - 2.2 [facility] ALP [Catalytic activity/Vol] 55 [iU]/d Normal 21 - 98 Int._Unit/L [facility] ALT No additional P-5'-P [Catalytic activity/Vol] 26 [iU]/d Normal 6 - 46 Int._Unit/L [facility] Anion gap [Moles/Vol] 12 mmol/L Normal 6 - 16 mEq/L R em[facility] Chem AST [Catalytic activity/Vol] 18 [iU]/d Normal 5 - 43 Int._Unit/L [facility] Bilirubin [Mass/Vol] 0.5 mg/dL Normal 0.0 - 1 .1 mg/dL [facility] Bilirubin.direct [Mass/Vol] 0.1 mg/dL Normal 0.0 - 0.4 mg/dL [facility] Bilirubin.indirect [Mass or moles/Vol] 0.4 mg/dL Normal 0.1 - 0.9 mg/dL [facility] Calcium [Mass/Vol] 9.0 mg/dL Normal 8.9 - 11. 1 mg/dL [facility] Chloride [Moles/Vol] 110 mmol/L Normal 101 - 1 11 mmol/L [facility] Cholesterol [Mass/Vol] 209 mg/dL High 120 - 200 mg/dL [facility] Cholesterol in HDL [Mass/Vol] 32 mg/dL Invalid Interpretation Code [facility] Comment on above: Result Comment: '>= 60 LOW RISK' '<= 40 HIGH RISK' Cholesterol in LDL [Mass/Vol] 143 mg/dL High <=129mg/dL [facility] Cholesterol in VLDL [Mass/Vol] 70 mg/dL High 7 - 40 mg/dL [facility] CO2 [Moles/Vol] 18 mmol/L Low 21 - 31 mmol/L [facility] Creatinine [Mass/Vol] 0.8 mg/dL Normal 0.5 - 1.3 mg/dL [facility] eGFR 90 mL/min/1.73 m2 Normal >=59mL/min /1 .73 m2 [facility] Globulin (S) [Mass/Vol] 3.0 g/dL Normal 1.4 - 4.0 gm/dL [facility] Glucose [Mass/Vol] 190 mg/dL Normal 55 - 199 mg/dL [facility] Potassium [Moles/Vol] 4.3 mmol/L Normal 3.5 - 5.3 mmol/L [facility] Protein [Mass/Vol] 7.3 g/dL Normal 6.0 - 7.8 gm/dL [facility] Sodium [Moles/Vol] 136 mmol/L Normal 135 - 145 mmol/L [facility] Triglyceride [Mass/Vol] 351 mg/dL High <=149mg/dL [facility] Urea nitrogen [Mass/Vol] 20 mg/dL Normal 5 - 21 mg/dL [facility] Urea nitrogen/Creatinine [Mass ratio] 25 mg/mg High 10 - 20 [facility] CHEMISTRYOrdered By: Philly Fried on 11-10-2024 HbA1c (Bld) [Mass fraction] 7.4 % High <=5.9% [facility] [place] Chem[employer]SS HEMATOLOGYOrdered By: SYSTEM SYSTEM on 11-10-2024 Erythrocyte distribution width (RBC) [Ratio] 13.6 % Normal 10.9 - 14.2 % [facility] Hematocrit (Bld) [Volume fraction] 54.6 % High 34.0 - 46.0 % [facility] Hemoglobin (Bld) [Mass/Vol] 18.7 g/dL High 12.0 - 16.0 gm/dL [facility] MCH (RBC) [Entitic mass] 34.7 pg High 27.0 - 34.0 pg [facility] MCHC (RBC) [Mass/Vol] 34.2 g/dL Normal 31.4 - 36.0 gm/dL [facility] MCV (RBC) [Entitic vol] 101.2 fL High 80.0 - 100.0 fL [facility] Platelet mean volume (Bld) [Entitic vol] 10.1 fL Normal 6.4 - 10.8 fL [facility] Platelets (Bld) [#/Vol] 208.0 E9/L Normal 150.0 - 500.0 E9/L [facility] RBC (Bld) [#/Vol] 5.4 E12/L Normal 4.3 - 5.9 E12/L [facility] RBC size Nom (Bld) NORMAL *NA* (11/10/24 11:29 AM) Invalid Interpretation Code [facility] WBC corrected for nucl RBC Auto (Bld) [#/Vol] 11.0 E9/L Normal 4.0 - 11.0 E9/L [facility] Hep Func Panelon 11-10-2024 Albumin [Mass/Vol] 4.3 g/dL Normal 3.3-5.0 [facility] Comment on above: Performed By: #### 2 [id number] #### [facility] [address] [place] [address] Albumin/Globulin (S) [Mass conc ratio] 1.4 Normal 1.1-2.2 [facility] Comment on above: Performed By: #### 2 [id number] #### [facility] [address] [place] [address] ALP [Catalytic activity/Vol] 55 Int._Unit/L Normal 21-98 [facility] Comment on above: Performed By: #### 2 [id number] #### [facility] [address] [place] [address] ALT No additional P-5'-P [Catalytic activity/Vol] 26 Int._Unit/L Normal 6-46 [facility] Comment on above: Performed By: #### 2 [id number] #### [facility] [address] [place] [address] AST [Catalytic activity/Vol] 18 Int._Unit/L Normal 5-43 [facility] Comment on above: Performed By: #### 2 [id number] #### [facility] [address] [place] [address] Bilirubin [Mass/Vol] 0.5 mg/dL Normal 0.0-1.[address] [facility] Comment on above: Performed By: #### 2 [id number] #### [facility] [address] [place] [address] Bilirubin.direct [Mass/Vol] 0.1 mg/dL Normal 0.0-0.4 [facility] Comment on above: Performed By: #### 2 [id number] #### [facility] [address] [place] [address] Bilirubin.indirect [Mass or moles/Vol] 0.4 mg/dL Normal 0.1-0.9 [facility] Comment on above: Performed By: #### 2 [id number] #### [facility] [address] [place] [address] Globulin (S) [Mass/Vol] 3.0 g/dL Normal 1.4-4.0 [facility] Comment on above: Performed By: #### 2 [id number] #### [facility] [address] [place] [address] Protein [Mass/Vol] 7.3 g/dL Normal 6.0-7.8 [facility] Comment on above: Performed By: #### 2 [id number] #### [facility] [address] [place] [address] [id number] 11-10-2024 HbA1c (Bld) [Mass fraction] 7.4 % High <=5.9 [facility] Comment on above: Performed By: #### 7 [id number] #### [facility] [address] [place] [address] Lipid Panelon 11-10-2024 Cholesterol [Mass/Vol] 209 mg/dL High 120-200 [facility] Comment on above: Performed By: #### 2 [id number] #### [facility] [address] [place] [address] Cholesterol in HDL [Mass/Vol] 32 mg/dL Invalid Interpretation Code [facility] Comment on above: Result Comment: '>= 60 LOW RISK' '<= 40 HIGH RISK' Performed By: #### 2 [id number] #### [facility] [address] [place] [address] Cholesterol in LDL [Mass/Vol] 143 mg/dL High <=129 [facility] Comment on above: Performed By: #### 2 [id number] #### [facility] [address] [place] [address] Cholesterol in VLDL [Mass/Vol] 70 mg/dL High 7-40 [facility] Comment on above: Performed By: #### 2 [id number] #### [facility] [address] [place] [address] Triglyceride [Mass/Vol] 351 mg/dL High <=149 [facility] Comment on above: Performed By: #### 2 [id number] #### [facility] [address] [place] [address] eGFRon 11-10-2024 eGFR 90 mL/min/1.73 m2 Normal >=59 [facility] Comment on above: Performed By: #### 1 [id number] #### [facility] [address] [place] [address] ED Clinical Summaryon 2023 ED Clinical Summary ED Clinical Summary [address] [address] ED Clinical Summary Person Information Name: HIEN LAM [facility] Age: 49 Years : 1975 Sex: Female Language: Gabonese PCP: Mindy Morgan MD Marital Status: Single Phone: [phone] Visit Id: Visit Reason: Back pain; BACK PAIN Speciality: Acuity: 4 Enc Type: Emergency Med Service: Emergency Arrival: 10/04/2024 09:09:10 Discharge: 10/04/2024 11:29:24 LOS: 000 02:20 Checkin: 10/04/2024 09:09:10 Checkout: 10/04/2024 11:29:24 Dispo Type: Home (Routine DC) EVENTS: Event Name Event Status Request Date/Time Start Date/Time Complete Date/Time Arrive Complete 10/04/2024 09:09:10 10/04/2024 09:09:10 10/04/2024 09:09:10 Document Home Meds Request 10/04/2024 09:09:10 Triage Complete 10/04/2024 09:09:10 10/04/2024 09:27:30 10/04/2024 09:27:30 Bed Assign Complete 10/04/2024 09:11:58 10/04/2024 09:11:58 10/04/2024 09:11:58 Dr Exam Complete 10/04/2024 09:11:58 10/04/2024 09:14:40 10/04/2024 09:14:40 RN Exam Complete 10/04/2024 09:11:58 10/04/2024 09:30:03 10/04/2024 09:30:03 Registration Complete 10/04/2024 09:14:40 10/04/2024 09:18:06 10/04/2024 09:18:06 Reg Complete Request 10/04/2024 09:18:06 Reg Bed Request Complete 10/04/2024 09:18:06 10/04/2024 09:18:06 10/04/2024 09:18:06 Dr Exam Complete 10/04/2024 09:23:26 10/04/2024 09:23:26 10/04/2024 09:23:26 Registration Request 10/04/2024 09:23:26 Isolation Screening Request 10/04/2024 09:27:30 X-Ray Complete 10/04/2024 09:40:06 10/04/2024 09:40:41 10/04/2024 09:50:29 Wet Read Request 10/04/2024 09:50:29 Discharge Complete 10/04/2024 11:17:22 10/04/2024 11:29:30 10/04/2024 11:29:30 Transfer Complete 10/04/2024 11:29:30 10/04/2024 11:29:30 10/04/2024 11:29:30 ADDRESS: [address] [place] [id number] PHYS DOC NOTES: MEDICAL INFORMATION: Prescriptions Given: New Medications [id number], [address], [place] [id number], [phone] lidocaine topical (lidocaine Top 5% film Patch) 1 Patches Topical every day. apply 12 hours on and 12 hours off daily. Refills: 0. predniSONE (predniSONE 50 mg Tab) 1 Tablets By Mouth every day for 7 Days. Refills: 0. tramadol (traMADOL 50 mg Tab) 1 Tablets By Mouth every 6 hours as needed for pain for 3 Days. Refills: 0. Medications to Continue with No Changes Other Medications albuterol (albuterol 0.083% Inh Tiffanie 3 mL) 3 Milliliter Inhalation every 6 hours. Q6H and PRN. albuterol (albuterol CFC free 90 mcg/inh Inh Aer w/Adapt 8 gm (Ventolin)) 2 Puffs Inhalation 4 times a day. Refills: 0. aspirin (aspirin 81 mg Oral EC Tab) 1 Tablets By Mouth every day. atorvastatin (Lipitor 20 mg Tab) 2 Tablets By Mouth every day. 40 mg. cephalexin (cephalexin 500 mg Cap) 1 Capsules By Mouth 4 times a day. Refills: 0. ergocalciferol (Vitamin D2 2000 intl units oral capsule) ertugliflozin (Steglatro 15 mg oral tablet) fenofibrate (fenofibrate 145 mg Tab) 1 Tablets By Mouth every day. gabapentin (gabapentin 800 mg Tab) 1 Tablets By Mouth 4 times a day. ibuprofen (ibuprofen 600 mg Tab) 1 Tablets By Mouth every 6 hours as needed as needed for pain. Refills: 0. insulin isophane-insulin regular (NovoLIN 70/30 FlexPen subcutaneous suspension) lisinopril (lisinopril 5 mg Tab) 1 Tablets By Mouth every day. mifepristone (Korlym 300 mg oral tablet) 1 Tablets By Mouth every day. mupirocin topical (mupirocin Top 2% Oint) 1 Application Topical 3 times a day. Refills: 0. mupirocin topical (mupirocin Top 2% Oint) 1 Application Topical 3 times a day. Refills: 0. naproxen (Naprosyn 500 mg Tab) 1 Tablets By Mouth 2 times a day. Refills: 0. naproxen (Naprosyn 500 mg Tab) 1 Tablets By Mouth 2 times a day as needed for pain. Refills: 0. pantoprazole (Protonix 40 mg Tab-DR) 1 Tablets By Mouth every day. spironolactone (spironolactone 25 mg Tab) tiotropium (Spiriva Respimat 28 ACT 2.5 mcg/inh inhalation aerosol) topiramate (Topamax 200 mg Tab) 1 Tablets By Mouth 2 times a day. valacyclovir (Valtrex) 500 Milligram By Mouth every day. PATIENT EDUCATION INFORMATION: Instructions: Back Exercises, Nsdy-ey-Otrg; Lumbar Strain Follow up: With: Address: When: [address] [place] [address] Business (1) In 3 days 10/07/2024 Comments: Call Dr for diagnosis based follow up DIAGNOSIS: Lumbago Normal [facility] ED Note-Physicianon 10-04-20 ED Note-Physician ED Note-Physician Basic Information Time Seen: Vincenzo Correa PA-C 10/04/2024 09:14 Chief Complaint pt presents with lower back pain d/t fall 1 and a half months ago. pt states they have not been seen since injury. states pain is worsening. History of Present Illness A 49-year-old female reports to the emergency department with complaints of low back pain. Reports that this back pain has been going on for a month and a half now. Reports this happened after a fall. Reports that she has not been seen since the injury. Reports pain seems to be worsening. Thought it was just muscular would go away but it has not. Denies any bowel or bladder problems. Denies any numbness or tingling in groin area. Reports that time does have radiation down in her legs. Reports that she has been taking Tylenol with mild relief of her symptoms. Review of Systems No other aggravating or relieving factors no other associated symptoms no other prior treatments or complaints. Family: Reviewed and noncontributory Social: lives at home Review of systems negative unless otherwise specified in the HPI. Physical Exam Vitals & Measurements T: 36.4 ???C(Oral) HR: 63(Peripheral) RR: 18 BP: 115/58 SpO2: 94% HT: 165.1 cm WT: 100 kg BMI: 36.69 General: The patient appears well and in no apparent distress. Patient is resting comfortably in chair. Afebrile Skin: Warm, dry, no pallor noted. Head: Normocephalic, atraumatic Neck: No JVD Eye: PERRLA, EOMI ENT: Moist mucus membranes Cardiovascular: Regular rate. normal peripheral perfusion. Pedal pulses +2 bilaterally Respiratory: No respiratory distress. no accessory muscle use. no obvious audible wheezing Chest Wall: no deformity Musculoskeletal: normal ROM, no deformity, no swelling. Mild tenderness generalized inside of the entire lumbosacral region of the patient's lower back. No step-offs felt. GI: No obvious distention Neurological: A&O. moves all extremities equal strength and symmetry Psychiatric: Cooperative and appropriate Medical Decision Making MEDICAL DECISION MAKING Number and Complexity of Problems Differential Diagnosis: [] [facility] Data External documents reviewed: [] My EKG interpretation: [] My CT interpretation: [] My X-ray interpretation: Reviewed My Ultrasound interpretation: [] Decision rules/scores evaluated: [] Discussed with: [] Treatment and Disposition ED Course: A 49-year-old female reports to the emergency department with complaints of low back pain. Reports that she had a fall about 6 weeks ago. Been having pain ever since. No warning signs for cauda equina syndrome. No bowel or bladder deficits. No saddle anesthesias. Generalized pain throughout entire lumbar region of patient's lower back. Due to her concerns, we did perform an x-ray. X-ray negative for any acute fractures. Discussed likely more musculoskeletal type pain. Patient will be given pain medicine, steroids as well as lidocaine patches for relief. Discussed follow-up with PCP. Follow-up with your primary care provider in 3 to 5 days. If symptoms worsen, do not improve, or new symptoms arise please report back to emergency department for further evaluation. The patient was understanding and agreeable to plan moving forward. Shared decision making: [] Code status: [] Assessment/Plan Lumbago (M54.50: Low back pain, unspecified) Orders: lidocaine topical, 1 patch(es), Topical, Daily, 7 patch(es), Refill(s) 0, apply 12 hours on and 12 hours off daily, [id number], 165.1, cm, 10/04/24 9:27:00 EST, Height/Length Dosing, 100, kg, 10/04/24 9:27:00 EST, Weight Dosing predniSONE, 50 mg = 1 tab(s), Oral, Daily, X 7 day(s), # 7 tab(s), Refills(s) 0, Pharmacy: [id number], 165.1, cm, 10/04/24 9:27:00 EST, Height/Length Dosing, 100, kg, 10/04/24 9:27:00 EST, Weight Dosing tramadol, 50 mg = 1 tab(s), Oral, q6hr, PRN for pain, X 3 day(s), # 12 tab(s), Refills(s) 0, Pharmacy: [id number], 165.1, cm, 10/04/24 9:27:00 EST, Height/Length Dosing, 100, kg, 10/04/24 9:27:00 EST, Weight Dosing XR Spine Lumbosacral 2 or 3 Views Disposition Plan Patient Discharge Condition stable Discharge Disposition to home Discharge Prescription List Prescriptions lidocaine Top 5% film Patch, 1 patch(es), Topical, Daily predniSONE 50 mg Tab, 50 mg= 1 tab(s), Oral, Daily traMADOL 50 mg Tab, 50 mg= 1 tab(s), Oral, q6hr, PRN Follow-up With When Contact Information Mindy Morgan In 3 days 10/07/2024 EST [employer] [place], [place] [id number]- Business (1) Additional Instructions: Call Dr for diagnosis based follow up Patient Education Back Exercises, Glga-aa-Mfze Lumbar Strain Attestation Patient seen and evaluated by the physician medical receptionist medical assistant. Attending physician was present in the emergency department and supervised care. This visit was performed by both the physician and an APC. I performed all aspects of the MDM as documented. Thi (more content not included)... Normal [facility] Comment on above: Result Comment: Elec tronically Signed By: Vincenzo Correa PA-C\.br\Date and Time Signed: 10/04/24 12:10 EST\.br\Electronically Co-Signed By: Nain Pinto DO.br\Date and Time Co-Signed: 10/04/24 12:27 EST ED Patient Summaryon 024 ED Patient Summary ED Patient Summary [place] [id number] Patient Discharge Instructions Person Information Name: HIEN LAM Age: 49 Years Arrival Date: 10/04/2024 09:09:10 Discharge Diagnosis: Lumbago Primary Care Physician: Mindy Morgan MD Provider Information Primary Provider: Nain Pinto DO Advanced Field Service Engineer:None The exam and treatment you received in the Emergency Department were for an urgent problem and are not intended as complete care. It is important that you follow up with a doctor, nurse practitioner, or physician???s medical receptionist medical assistant for ongoing care. If your symptoms become worse or you do not improve as expected and you are unable to reach your usual health care provider, you should return to the Emergency Department. We are available 24 hours a day. BENNIE LAME Marii has been given the following list of patient education materials, prescriptions and follow-up instructions: Follow-up Instructions: With: Address: When: Mindy Morgan [address] [place] [address]., [address] [place] [phone] [facility] (1) In 3 days 10/07/2024 Comments: Call Dr for diagnosis based follow up In the event that this physician does not participate in your insurance network, please consult with your insurance company to find a nearby participating provider. Patient Education Materials: Back Exercises, Byvc-kt-Bsnf; Lumbar Strain A MESSAGE TO ALL PATIENTS REGARDING OPIOIDS PRESCRIPTION OPIOIDS: WHAT YOU NEED TO KNOW Prescription opioids can be used to help relieve wyyesoys-qj-zckbzf pain and are often prescribed following a surgery or injury, or for certain health conditions. These medications can be an important part of the treatment but also come with serious risks. It is important to work with your healthcare provider to make sure you are getting the safest, most effective care. WHAT ARE THE RISKS AND SIDE EFFECTS OF OPIOID USE? Prescription opioids carry serious risks of addiction and overdose, especially with prolonged use. An opioid overdose, often marked by slowed breathing, can cause sudden . The use of prescription opioids can have a number of side effects as well, even when taken as directed: ??? Tolerance???meaning you might need to take more of the medication for the same pain relief ??? Physical dependence???meaning you have symptoms of withdrawal when a medication is stopped ??? Increased sensitivity to pain ??? Constipation ??? Nausea, vomiting, and dry mouth ??? Sleepiness and dizziness ??? Confusion ??? Depression ??? Low levels of testosterone that can result in lower sex drive, energy, and strength ??? Itching and sweating RISKS ARE GREATER WITH: ??? History of drug misuse, substance use disorder, or overdose ??? Mental health conditions (such as depression or anxiety) ??? Sleep apnea ??? Older age (65 years and older) ??? Avoid alcohol while taking prescription opioids. Also, unless specifically advised by your health care provider, medications to avoid include: ??? Benzodiazepines (such as Xanax or Valium) ??? Muscle relaxants (such as Soma or Flexeril) ??? Hypnotics (such as Ambien or Lunesta) ??? Other prescription opioids KNOW YOUR OPTIONS Talk to your health care provider about ways to manage your pain that don???t involve prescription opioids. Some of these options may actually work better and have fewer risks and side effects. Options may include: ??? Pain relievers such as acetaminophen, ibuprofen, and naproxen ??? Some medication that are also used for depression or seizures ??? Physical therapy and exercise ??? Cognitive behavioral therapy, a psychological, goal-directed approach, in which patients learn how to modify physical, behavioral, and emotional triggers of pain and stress. IF YOU ARE PRESCRIBED OPIOIDS FOR PAIN: ??? Never take opioids in greater amounts or more often than prescribed. ??? Follow up with your primary health care provider. o Work together to create a plan on how to manage your pain. o Talk about ways to help manage your pain that don???t involve prescription opioids. o Talk about any and all concerns and side effects. ??? Help prevent misuse and abuse o Never sell or share prescription opioids. o Never use another person???s prescription opioids. ??? Store prescription opioids in a secure place and out of reach of others (this may include visitors, children, friends, and family). ??? Safely dispose of unused prescription opioids: Find your community drug take-back program or your pharmacy mail-back program, or flush them down the toilet, following guidance from the Food and Drug Administration (www.fda.gov/Drugs/Resour cesForYou). ??? Visit www.cdc.gov/drugoverdose to learn about the risks of opioids abuse and overdose. ??? If you believe you may (more content not included)... Normal [facility] XR Spine Lumbosacral 2 or 3 Viewson 10-04-2024 XR Spine Lumbosacral 2 or 3 Views Exam Date/Time: 10/04/2024 09:50 EST Reason for Exam: Pain, Traumatic Report IMPRESSION: NO ACUTE FRACTURE OR SIGNIFICANT POSTTRAUMATIC COMPLICATION IDENTIFIED. EXAM: XR Spine Lumbosacral 2 or 3 Views DATE: 10/04/2024 9:40 AM CLINICAL HISTORY: Pain, Traumatic. COMPARISON: Chest and right rib series 09/24/2020 and two-view chest 10/31/2019. TECHNIQUE: AP, lateral, and coned-down lateral radiographs of the lumbar spine were obtained. FINDINGS: Mild S-shaped curvature, mild disc space narrowing, and mild degenerative endplate and hypertrophic facet changes are present with the lower levels. Mild chronic wedging of the T11 vertebral body is again noted. There is no acute fracture, significant subluxation, worrisome bone destruction, or acute findings identified. The sacroiliac joints are unremarkable. Ordering Provider: Vincenzo Correa FINAL REPORT Dictated: 10/04/2024 11:04 am Garcia Aguilera MD Signed (Electronic Signature): 10/04/2024 11:04 am Signed by: Garcia Aguilera MD Transcribed by: DIAMANTE Technologist: ALESSIA Technical Comments Radiation Dose: Ka,r in mGy = na DAP = na Normal [facility] Cardiac Device Check - In Cl inicon 08-09-2024 [facility] Work Phone: Radiology Study observation (narrative) [facility] Work Phone: ECG 12 lead (Clinic Performe d)on 08-09-2024 EKG performed today shows atrial paced rhythm at rate of 62 bpm QRS duration 88 ms QT corrected 460 ms. Rhythm strip shows the same pattern. [facility] Work Phone: XR CHEST 2 VIEWSon XR CHEST 2 VIEWS Interpreted By: Deepa Salmeron, STUDY: XR CHEST 2 VIEWS; ; 08/09/2024 9:36 am INDICATION: Signs/Symptoms:pacemaker. ,Z95.0 Presence of cardiac pacemaker COMPARISON: 05/02/2024 ACCESSION NUMBER(S): [id number] ORDERING CLINICIAN: ANALIA GRAY FINDINGS: Left chest wall pacemaker is noted with leads extending to the heart. Cardiac silhouette is stable in size and morphology. Bilateral lungs are clear without consolidative airspace opacities. No pleural effusions or pneumothorax. No acute osseous findings. IMPRESSION: No acute cardiopulmonary process. MACRO: None Signed by: Deepa Conway 08/10/2024 1:59 PM Dictation workstation: [id number] [facility] Comment on above: Order Comment: Repor t to [facility] registration on 08/09/2024 at 8:15 AM for chest x-ray and device check prior to appointment with Dr. Ventura at 9:45 AM ED Note-Physicianon 07-27-20 ED Note-Physician ED Note-Physician Basic Information Time Seen: Matt Jansen PA-C 07/26/2024 16:31 Chief Complaint fell down 20 steps 1.5months ago. c/o right shoulder pain. History of Present Illness Patient is a 48-year-old female that presents today for evaluation of her right shoulder pain. She states that she fell down about 20 steps about 1-1/2 months ago and has had shoulder pain ever since. She has never had any imaging of this. She denies any radicular symptoms down into the elbow or hand. She states that most of her pain is within the right shoulder. It will radiate occasionally up into her neck area. She states that it is very difficult and painful for her to abduct the right shoulder. She denies any fevers, bodies, chills. Review of Systems No other aggravating or relieving factors no other associated symptoms no other prior treatments or complaints. Family: Reviewed and noncontributory Social: lives at home Review of systems negative unless otherwise specified in the HPI. Physical Exam Vitals & Measurements T: 37 ?C(Oral) HR: 73(Peripheral) RR: 18 BP: 102/57 SpO2: 95% HT: 165.1 cm WT: 92.1 kg BMI: 33.79 Vital Signs reviewed and noted. General: Alert, no acute distress, patient resting comfortably Skin: warm, intact, no pallor noted Head: Normocephalic, atraumatic Eye: Normal conjunctiva Cardiac: Normal peripheral perfusion Respiratory: No acute distress Musculoskeletal: No deformity, full ROM. Diffuse tenderness to palpation about the right shoulder. There is no focal bony tenderness. There is pain with range of motion about the shoulder and pain does limit range of motion. There is no tenderness to the remainder of the humerus or elbow or the remainder of the extremity. The patient does seem to guard against range of motion about that shoulder specifically hyperextension and abduction. Most of her pain does seem to be within the musculature. Neurological: alert and oriented, normal sensory and motor observed. Psychiatric: Cooperative Medical Decision Making Patient is a 48-year-old female presents today for evaluation of her right shoulder pain. She fell down about 20 steps half months ago and has had shoulder pain ever since. It is very difficult for her to abduct the right shoulder. Denies any other systemic signs or symptoms. On exam the patient has diffuse tenderness to palpation of the right shoulder. She does have most of her pain to be within the musculature. Patient does have pain with range of motion. No other tenderness. X-rays of the right shoulder are negative for any acute pathology. Given her signs and symptoms she likely has rotator cuff syndrome of the right shoulder. Provided her with a dose of Toradol here in the ED. She will be discharged home with naproxen and tizanidine. She will have close follow-up with Dr. Seth orthopedics for further evaluation and management. Return to ED precautions were reviewed with the patient at length. Assessment/Plan Rotator cuff syndrome of right shoulder (M75.101: Unspecified rotator cuff tear or rupture of right shoulder, not specified as traumatic) Orders: ketorolac, 30 mg = 1 mL, Injection, IntraMuscular, Once, Stop date 07/26/24 17:30:00 EDT, STAT, Start date 07/26/24 17:30:00 EDT, 07/26/24 17:30:00 EDT naproxen, 500 mg = 1 tab(s), Oral, BID, X 10 day(s), # 20 tab(s), Refills(s) 0, Pharmacy: [id number], 165.1, cm, 07/26/24 16:21:00 EDT, Height/Length Dosing, 92.1, kg, 07/26/24 16:21:00 EDT, Weight Dosing tizanidine, 2 mg = 1 tab(s), Oral, q8hr, X 7 day(s), # 21 tab(s), Refills(s) 0, Pharmacy: [id number], 165.1, cm, 07/26/24 16:21:00 EDT, Height/Length Dosing, 92.1, kg, 07/26/24 16:21:00 EDT, Weight Dosing Medications Administered Given ketorolac 30 mg/mL Inj 1 mL, 30 mg, IntraMuscular Disposition Plan Patient Discharge Condition Stable Discharge Disposition Home Discharge Prescription List Prescriptions naproxen 500 mg Tab, 500 mg= 1 tab(s), Oral, BID tiZANidine 2 mg Tab, 2 mg= 1 tab(s), Oral, q8hr Follow-up With When Contact Information Charissa Seth In 3 days 07/29/[address]T [address] Business (1) Additional Instructions: Mindy Morgan In [address] [place] [address] Business (1) Additional Instructions: Patient Education Rotator Cuff Tendinitis Attestation Patient seen and evaluated by the physician medical receptionist medical assistant. Attending physician was present in the emergency department and supervised care. This visit was performed by both the physician and an APC. I performed all aspects of the MDM as documented. This report was transcribed using voice recognition software. Every effort was made to ensure accuracy, however, inadvertently computerized special events manager mistakes may be present. Appropriate healthcare PPE was used in evaluating this patient. The patient was placed in a mask. The healthcare provider was wearing mask, gloves, and utilizin (more content not included)... Normal [facility] Comment on above: Result Comment: Elec tronically Signed By: Matt Jansen PA-C\.br\Date and Time Signed: 07/27/24 00:10 EDT\.br\Electronically Co-Signed By: Nain Pinto DO\.br\Date and Time Co-Signed: 07/27/24 07:14 EDT ED Clinical Summaryon 2023 ED Clinical Summary ED Clinical Summary [address] [address] ED Clinical Summary Person Information Name: HIEN LAM [place] Age: 48 Years : 1975 Sex: Female Language: Gabonese PCP: Mindy Morgan MD Marital Status: Single Phone: [phone] Visit Id: Visit Reason: Shoulder injury - Minor; RIGHT SHOULDER PAIN Speciality: Acuity: 4 Enc Type: Emergency Med Service: Emergency Arrival: 07/26/2024 16:06:08 Discharge: 07/26/2024 17:39:51 LOS: 000 01:33 Checkin: 07/26/2024 16:06:08 Checkout: 07/26/2024 17:39:51 Dispo Type: Home (Routine DC) EVENTS: Event Name Event Status Request Date/Time Start Date/Time Complete Date/Time Arrive Complete 07/26/2024 16:06:08 07/26/2024 16:06:08 07/26/2024 16:06:08 Document Home Meds Request 07/26/2024 16:06:08 Triage Complete 07/26/2024 16:06:08 07/26/2024 16:21:56 07/26/2024 16:21:56 Registration Complete 07/26/2024 16:12:26 07/26/2024 16:12:26 07/26/2024 16:12:26 Reg Complete Request 07/26/2024 16:12:26 Reg Bed Request Complete 07/26/2024 16:12:26 07/26/2024 16:12:26 07/26/2024 16:12:26 Isolation Screening Request 07/26/2024 16:21:56 Bed Assign Complete 07/26/2024 16:23:05 07/26/2024 16:23:05 07/26/2024 16:23:05 Dr Exam Complete 07/26/2024 16:23:05 07/26/2024 16:31:11 07/26/2024 16:31:11 RN Exam Request 07/26/2024 16:23:05 X-Ray Complete 07/26/2024 16:27:31 07/26/2024 16:27:53 07/26/2024 16:35:21 Registration Request 07/26/2024 16:31:11 Wet Read Request 07/26/2024 16:35:21 Dr Exam Complete 07/26/2024 16:38:03 07/26/2024 16:38:03 07/26/2024 16:38:03 Meds Admin Complete 07/26/2024 17:31:11 07/26/2024 17:38:12 Discharge Complete 07/26/2024 17:32:09 07/26/2024 17:40:05 07/26/2024 17:40:05 Transfer Complete 07/26/2024 17:40:05 07/26/2024 17:40:05 07/26/2024 17:40:05 ADDRESS: [address] [place] [phone] PHYS DOC NOTES: MEDICAL INFORMATION: Prescriptions Given: New Medications [id number], [address], [place] [id number], [phone] tizanidine (tiZANidine 2 mg Tab) 1 Tablets By Mouth every 8 hours for 7 Days. Refills: 0. Medications to Continue Taking That Have Changed [id number], [address], [place] [id number], [phone] START: naproxen (naproxen 500 mg Tab) 1 Tablets By Mouth 2 times a day for 10 Days. Refills: 0. Other Medications START: naproxen (Naprosyn 500 mg Tab) 1 Tablets By Mouth 2 times a day. Refills: 0. START: naproxen (Naprosyn 500 mg Tab) 1 Tablets By Mouth 2 times a day as needed for pain. Refills: 0. Medications to Continue with No Changes Other Medications albuterol (albuterol 0.083% Inh Tiffanie 3 mL) 3 Milliliter Inhalation every 6 hours. Q6H and PRN. albuterol (albuterol CFC free 90 mcg/inh Inh Aer w/Adapt 8 gm (Ventolin)) 2 Puffs Inhalation 4 times a day. Refills: 0. aspirin (aspirin 81 mg Oral EC Tab) 1 Tablets By Mouth every day. atorvastatin (Lipitor 20 mg Tab) 2 Tablets By Mouth every day. 40 mg. cephalexin (cephalexin 500 mg Cap) 1 Capsules By Mouth 4 times a day. Refills: 0. ergocalciferol (Vitamin D2 2000 intl units oral capsule) ertugliflozin (Steglatro 15 mg oral tablet) fenofibrate (fenofibrate 145 mg Tab) 1 Tablets By Mouth every day. gabapentin (gabapentin 800 mg Tab) 1 Tablets By Mouth 4 times a day. ibuprofen (ibuprofen 600 mg Tab) 1 Tablets By Mouth every 6 hours as needed as needed for pain. Refills: 0. insulin isophane-insulin regular (NovoLIN 70/30 FlexPen subcutaneous suspension) lisinopril (lisinopril 5 mg Tab) 1 Tablets By Mouth every day. mifepristone (Korlym 300 mg oral tablet) 1 Tablets By Mouth every day. mupirocin topical (mupirocin Top 2% Oint) 1 Application Topical 3 times a day. Refills: 0. mupirocin topical (mupirocin Top 2% Oint) 1 Application Topical 3 times a day. Refills: 0. pantoprazole (Protonix 40 mg Tab-DR) 1 Tablets By Mouth every day. spironolactone (spironolactone 25 mg Tab) tiotropium (Spiriva Respimat 28 ACT 2.5 mcg/inh inhalation aerosol) topiramate (Topamax 200 mg Tab) 1 Tablets By Mouth 2 times a day. valacyclovir (Valtrex) 500 Milligram By Mouth every day. PATIENT EDUCATION INFORMATION: Instructions: Rotator Cuff Tendinitis Follow up: With: Address: When: Charissa Seth [address] [place] [address] Business (1) In 3 days 07/29/2024 With: Address: When: Mindy Morgan [address] [facility] [address] [place] [address] Business (1) In 3 days DIAGNOSIS: Rotator cuff syndrome of right shoulder Normal [facility] ED Patient Summaryon 024 ED Patient Summary ED Patient Summary [facility] [address], [place] [address] Patient Discharge Instructions Person Information Name: HIEN LAM Age: 48 Years [facility]: [id number] Arrival Date: 07/26/2024 16:06:08 Discharge Diagnosis: Rotator cuff syndrome of right shoulder Primary Care Physician: Mindy Morgan MD Provider Information Primary Provider: Nain Pinto DO Advanced Field Service Engineer:Matt Jansen PA-C The exam and treatment you received in the Emergency Department were for an urgent problem and are not intended as complete care. It is important that you follow up with a doctor, nurse practitioner, or physician?s medical receptionist medical assistant for ongoing care. If your symptoms become worse or you do not improve as expected and you are unable to reach your usual health care provider, you should return to the Emergency Department. We are available 24 hours a day. HIEN LAM has been given the following list of patient education materials, prescriptions and follow-up instructions: Follow-up Instructions: With: Address: When: Charissa Seth [address] [place] [address] Business (1) In 3 days 07/29/2024 With: Address: When: Mindy Morgan [address] [facility], [address] [place] [address] Business (1) In 3 days In the event that this physician does not participate in your insurance network, please consult with your insurance company to find a nearby participating provider. Patient Education Materials: Rotator Cuff Tendinitis A MESSAGE TO ALL PATIENTS REGARDING OPIOIDS PRESCRIPTION OPIOIDS: WHAT YOU NEED TO KNOW Prescription opioids can be used to help relieve jletgkkg-nh-jmujcq pain and are often prescribed following a surgery or injury, or for certain health conditions. These medications can be an important part of the treatment but also come with serious risks. It is important to work with your healthcare provider to make sure you are getting the safest, most effective care. WHAT ARE THE RISKS AND SIDE EFFECTS OF OPIOID USE? Prescription opioids carry serious risks of addiction and overdose, especially with prolonged use. An opioid overdose, often marked by slowed breathing, can cause sudden . The use of prescription opioids can have a number of side effects as well, even when taken as directed: ? Tolerance?meaning you might need to take more of the medication for the same pain relief ? Physical dependence?meaning you have symptoms of withdrawal when a medication is stopped ? Increased sensitivity to pain ? Constipation ? Nausea, vomiting, and dry mouth ? Sleepiness and dizziness ? Confusion ? Depression ? Low levels of testosterone that can result in lower sex drive, energy, and strength ? Itching and sweating RISKS ARE GREATER WITH: ? History of drug misuse, substance use disorder, or overdose ? Mental health conditions (such as depression or anxiety) ? Sleep apnea ? Older age (65 years and older) ? Avoid alcohol while taking prescription opioids. Also, unless specifically advised by your health care provider, medications to avoid include: ? Benzodiazepines (such as Xanax or Valium) ? Muscle relaxants (such as Soma or Flexeril) ? Hypnotics (such as Ambien or Lunesta) ? Other prescription opioids KNOW YOUR OPTIONS Talk to your health care provider about ways to manage your pain that don?t involve prescription opioids. Some of these options may actually work better and have fewer risks and side effects. Options may include: ? Pain relievers such as acetaminophen, ibuprofen, and naproxen ? Some medication that are also used for depression or seizures ? Physical therapy and exercise ? Cognitive behavioral therapy, a psychological, goal-directed approach, in which patients learn how to modify physical, behavioral, and emotional triggers of pain and stress. IF YOU ARE PRESCRIBED OPIOIDS FOR PAIN: ? Never take opioids in greater amounts or more often than prescribed. ? Follow up with your primary health care provider. o Work together to create a plan on how to manage your pain. o Talk about ways to help manage your pain that don?t involve prescription opioids. o Talk about any and all concerns and side effects. ? Help prevent misuse and abuse o Never sell or share prescription opioids. o Never use another person?s prescription opioids. ? Store prescription opioids in a secure place and out of reach of others (this may include visitors, children, friends, and family). ? Safely dispose of unused prescription opioids: Find your community drug take-back program or your pharmacy mail-back program, or flush them down the toilet, following guidance from the Food and Drug Administration (www.fda.gov/Drugs/Resour cesForYou). ? Visit www.cdc.gov/drugoverdose to learn about the risks of opioids abuse and overdose. ? I (more content not included)... Normal [facility] XR Shoulder Complete Righton 07-26-2024 XR Shoulder Complete Right Exam Date/Time: 07/26/2024 16:35 EDT Reason for Exam: Pain, Traumatic Report IMPRESSION: NO EVIDENCE OF FRACTURE OR DISLOCATION RIGHT SHOULDER.. CLINICAL HISTORY: Pain, Traumatic. COMMENT: 4 views. There are hypertrophic degenerative arthritic changes at the right acromioclavicular and glenohumeral joints. The bones of the right shoulder are otherwise unremarkable, without evidence of fracture or dislocation. Ordering Provider: Nain Pinto FINAL REPORT Dictated: 07/26/2024 4:54 pm Narciso Segura M.D. Signed (Electronic Signature): 07/26/2024 4:54 pm Signed by: Narciso Segura M.D. Transcribed by: DIAMANTE Technologist: BRINDA Technical Comments Radiation Dose: Kar in mGy = na DAP = na Normal [facility] Adrenocorticotropic Hormone (ACTH)on 07-01-2024 Corticotropin (P) [Mass/Vol] 8.7 pg/mL 7.2 - 63.3 pg/mL [facility] Comment on above: INTERPRETIVE INFORMA TION: Adrenocorticotropic Hormone Reference interval based on samples collected between 7 a.m. and 10 a.m. No reference intervals established for p.m. collections. Pediatric reference values are the same as adults (Acta Paediatr Scand 1981;70:341-345). This assay measures intact ACTH 1-39; some types of synthetic ACTH and ACTH fragments are not detected by this assay. Performed By: [facility] [address] [place] [id number] [address] Furnace Tender: Alcides Gu MD, PhD CLIA Number: [id number] Corticotropin (P) [Mass/Vol] on 07-01-2024 [facility] 25-hydroxyvitamin D3 [Mass/V ol]on 06-29-2024 Interpretation and review of laboratory results Abnormal [facility] Deficiency: < 20 ng/ ml Insufficiency: 20-29 ng/ml Sufficiency: 30-100 ng/ml This assay accurately quantifies the sum of Vitamin D3, 25-Hydroxy and Vitamin D2,25-Hydroxy. [facility] Albumin-Creatinine Ratio, Ur ine Randomon 06-29-2024 Albumin/Creatinine DL <= 20 mg/L (U) [Mass ratio] 12.8 mg/g NINF [facility] Albumin/Creatinine DL <= 20 mg/L (U) [Mass ratio]on 06-29-2024 Albumin DL <= 20 mg/L (U) [Mass/Vol] 19.4 mg/L Not established [facility] Creatinine (U) [Mass/Vol] 151.3 mg/dL 20.0 - 320.0 mg/dL [facility] Cortisolon 06-29-2024 Cortisol [Mass/Vol] 8.8 ug/dL 2.5 - 20 .0 ug/dL [facility] Cortisol [Mass/Vol]on 2023 Interpretation and review of laboratory results Normal [facility] DHEA-S [Mass/Vol]on 06-29-20 24 MATURITY-BASED REFER ENCE RANGES: PUBERTAL (MOIRA) STAGE MALE FEMALE - I 5 - 265 5 - 125 II 15 - 380 15 - 150 III 60 - 505 20 - 535 IV 65 - 560 35 - 485 V 165 - 500 75 - 530 Biotin interference may cause falsely elevated results. Patients taking a Biotin dose of up to 5 mg/day should refrain from taking Biotin for 24 hours before sample collection. Providers may contact their local laboratory for further information. [facility] DHEA-sulfateon 06-29-2024 DHEA-S [Mass/Vol] 91 ug/dL 12 - 379 ug/dL [facility] E2 [Mass/Vol]on 06-29-2024 REF VALUES FOLLICULAR PHASE 20-144 MID CYCLE 64-357 LUTEAL PHASE 56-214 POSTMENOPAUSE < 32 PREPUBERTY < 20 FEMALE 10-18Y 8-110 MALE 10-18Y < 20 ADULT MALE < 40 [facility] Estradiolon 06-29-2024 E2 [Mass/Vol] 33 pg/mL [facility] Follitropin and Lutropin damon el Qnon 06-29-2024 Follitropin Qn 29.7 m[IU]/mL IU/L [facility] Comment on above: FSH Ref Values Follicular 2.0-12.0 IU/L Mid-Cycle 12.0-25.0 IU/L Luteal Phase 2.0-12.0 IU/L Menopause 30.0-150.0 IU/L Pre-puberty 50% Adult IU/L Adult Male 2.0-10.0 IU/L Infants 0.0-1.0 IU/L Lutropin Qn 32.9 m[IU]/mL IU/L [facility] Comment on above: LH Reference Values Follicular Phase 1.9-12.5 IU/L Mid-Cycle 8.7-76.3 IU/L Luteal Phase 0.5-16.9 IU/L Post Menopause 5.0-55.2 IU/L Children 0- 6.0 IU/L Adult Male 18-70 years 1.5- 9.3 IU/L Adult Male >70 years 3.1-34.6 IU/L No Panel Informationon 06-29 Interpretation and review of laboratory results Normal [facility] Prolactinon 06-29-2024 Prolactin [Mass/Vol] 5.1 ug/L 3.0 - 2 0.0 ug/L [facility] Renal function 2000 panelon 06-29-2024 Albumin BCP dye [Mass/Vol] 4.7 g/dL 3.4 - 5.0 g/dL [facility] Anion gap [Moles/Vol] 17 mmol/L 10 - 2 0 mmol/L [facility] Calcium [Mass/Vol] 9.5 mg/dL 8.6 - 10. 6 mg/dL [facility] Chloride [Moles/Vol] 108 mmol/L High 98 - 10 7 mmol/L [facility] CO2 [Moles/Vol] 19 mmol/L Low 21 - 32 mmol/L [facility] Creatinine [Mass/Vol] 0.75 mg/dL 0.50 - 1.05 mg/dL [facility] eGFR - PINF [facility] Comment on above: Calculations of cristian mated GFR are performed using the 2020 CKD-EPI Study Refit equation without the race variable for the IDMS-Traceable creatinine methods. https://jasn.asnjournals.org/content//ASN.722308 2467 Glucose [Mass/Vol] 97 mg/dL 74 - 99 mg/dL [facility] Interpretation and review of laboratory results Abnormal [facility] Phosphate [Mass/Vol] 3.5 mg/dL 2.5 - 4 .9 mg/dL [facility] Comment on above: MILD HEMOLYSIS DETEC BETSY. The result may be falsely elevated due to hemolysis or other interferents. Clinical correlation is recommended. Repeat testing may be considered. The performance characteristics of phosphorus testing in heparinized plasma have been validated by the individual laboratory site where testing is performed. Testing on heparinized plasma is not approved by the FDA; however, such approval is not necessary. Potassium [Moles/Vol] 4.9 mmol/L 3.5 - 5.3 mmol/L [facility] Comment on above: MILD HEMOLYSIS DETEC BETSY. The result may be falsely elevated due to hemolysis or other interferents. Clinical correlation is recommended. Repeat testing may be considered. Sodium [Moles/Vol] 139 mmol/L 136 - 145 mmol/L [facility] Urea nitrogen [Mass/Vol] 21 mg/dL 6 - 23 mg/dL [facility] TSH with reflex to Free T4 i f abnormalon 06-29-2024 TSH Qn 0.94 m[IU]/L [facility] TSH testing is perfo rmed using different testing methodology at [facility] than at other [facility]. Direct result comparisons should only be made within the same method. [facility] Vitamin D 25-Hydroxy,Total ( for eval of Vitamin D levels)on 06-29-2024 25-hydroxyvitamin D3 [Mass/Vol] 29 ng/mL Low 30 - 100 ng/mL [facility] BMPOrdered By: SYSTEM SYSTEM on 05-17-2024 Anion gap [Moles/Vol] 10 mmol/L Normal 6-16 Rem isol Chem Comment on above: Performed By: #### 2 [id number] #### [facility] [address] [place] [address] Calcium [Mass/Vol] 8.5 mg/dL Low 8.9-11.1 Remiso l Chem Comment on above: Performed By: #### 2 [id number] #### [facility] [address] [place] [address] Chloride [Moles/Vol] 111 mmol/L Normal 101-111 Sp tiffanie Chem Comment on above: Performed By: #### 2 [id number] #### [facility] [address] [place] [address] CO2 [Moles/Vol] 22 mmol/L Normal 21-31 Remisol C hem Comment on above: Performed By: #### 2 [id number] #### [facility] [address] [place] [address] Creatinine [Mass/Vol] 0.8 mg/dL Normal 0.5-1.3 Rem isol Chem Comment on above: Performed By: #### 2 [id number] #### [facility] [address] [place] [address] Glucose [Mass/Vol] 91 mg/dL Normal 55-199 Remiso l Chem Comment on above: Performed By: #### 2 [id number] #### [facility] [address] [place] [address] Potassium [Moles/Vol] 4.2 mmol/L Normal 3.5-5.3 Rem isol Chem Comment on above: Performed By: #### 2 [id number] #### [facility] [address] [place] [address] Sodium [Moles/Vol] 139 mmol/L Normal 135-145 Remiso l Chem Comment on above: Performed By: #### 2 [id number] #### [facility] [address] [place] [address] Urea nitrogen [Mass/Vol] 24 mg/dL High 5-21 Remisol Chem Comment on above: Performed By: #### 2 [id number] #### [facility] [address] [place] [address] BMPon 05-17-2024 Urea nitrogen/Creatinine [Mass ratio] 30 No Units High 10-20 [facility] Comment on above: Performed By: #### 2 [id number] #### [facility] [address] [place] [address] CBC w/IndicesOrdered By: GILUPIS TEM SYSTEM on 05-17-2024 Erythrocyte distribution width (RBC) [Ratio] 13.8 % Normal 10.9-14.2 Remisol Heme Comment on above: Performed By: #### 2 [id number] #### [facility] [address] [place] [address] Hematocrit (Bld) [Volume fraction] 46.4 % High 34.0-46.0 Remisol Heme Comment on above: Performed By: #### 2 [id number] #### [facility] [address] [place] [address] Hemoglobin (Bld) [Mass/Vol] 15.8 g/dL Normal 12.0-16.0 Remisol Heme Comment on above: Performed By: #### 2 [id number] #### [facility] [address] [place] [address] MCH (RBC) [Entitic mass] 33.9 pg Normal 27.0-34.0 Remisol Heme Comment on above: Performed By: #### 2 [id number] #### [facility] [address] [place] [address] MCHC (RBC) [Mass/Vol] 34.0 g/dL Normal 31.4-36.0 Rem isol Heme Comment on above: Performed By: #### 2 616243 #### [facility] [address] [place] [address] MCV (RBC) [Entitic vol] 99.6 fL Normal 80.0-100.0 Rem[facility] Heme Comment on above: Performed By: #### 2 [id number] #### [facility] [address] [place] [address] Platelet mean volume (Bld) [Entitic vol] 9.4 fL Normal 6.4-10.8 Remisol Heme Comment on above: Performed By: #### 2 [id number] #### [facility] [address] [place] [address] Platelets (Bld) [#/Vol] 219.0 E9/L Normal 150.0-500.0 Remisol Heme Comment on above: Performed By: #### 2 [id number] #### [facility] [address] [place] [address] RBC (Bld) [#/Vol] 4.7 E12/L Normal 4.3-5.9 Remisol Heme Comment on above: Performed By: #### 2 [id number] #### [facility] [address] [place] [address] WBC corrected for nucl RBC Auto (Bld) [#/Vol] 10.4 E9/L Normal 4.0-11.0 Remisol Heme Comment on above: Performed By: #### 2 [id number] #### [facility] [address] [place] [address] CBC w/Indiceson 05-17-2024 RBC size Nom (Bld) NORMAL Invalid Interpretation Code [facility] Comment on above: Performed By: #### 2 [id number] #### [facility] [address] [place] [address] CHEMISTRYOrdered By: SYSTEM SYSTEM on 05-17-2024 Albumin/Globulin [Mass ratio] 1.4 {ratio} Normal 1.1 - 2.2 Remisol Chem ALP [Catalytic activity/Vol] 42 [iU]/d Normal 21 - 98 Int._Unit/L Remisol Chem ALT No additional P-5'-P [Catalytic activity/Vol] 13 [iU]/d Normal 6 - 46 Int._Unit/L Remisol Chem AST [Catalytic activity/Vol] 11 [iU]/d Normal 5 - 43 Int._Unit/L Remisol Chem Urea nitrogen/Creatinine [Mass ratio] 30 mg/mg High 10 - 20 Remisol Chem HEMATOLOGYOrdered By: SYSTEM SYSTEM on 05-17-2024 RBC size Nom (Bld) NORMAL *NA* (05/17/24 12:00 PM) Invalid Interpretation Code Remisol Heme Hep Func PanelOrdered By: Shahab P. Tabatabai, Broker SYSTEM on 05-17-2024 Albumin [Mass/Vol] 4.0 g/dL Normal 3.3-5.0 Remiso l Chem Comment on above: Performed By: #### 2 [id number] #### [facility] [address] [place] [address] Bilirubin [Mass/Vol] 0.4 mg/dL Normal 0.0-1.1 Sp tiffanie Chem Comment on above: Performed By: #### 2 [id number] #### [facility] [address] [place] [address] Bilirubin.direct [Mass/Vol] 0.1 mg/dL Normal 0.0-0.4 Remisol Chem Comment on above: Performed By: #### 2 [id number] #### [facility] [address] [place] [address] Bilirubin.indirect [Mass or moles/Vol] 0.3 mg/dL Normal 0.1-0.9 Remisol Chem Comment on above: Performed By: #### 2 413606 #### [facility] [address] [place] [address] Globulin (S) [Mass/Vol] 2.8 g/dL Normal 1.4-4.0 Remisol Chem Comment on above: Performed By: #### 2 745645 #### [facility] [address] [place] [address] Protein [Mass/Vol] 6.8 g/dL Normal 6.0-7.8 Remiso l Chem Comment on above: Performed By: #### 2 198765 #### [facility] [address] [place] [address] Hep Func Panelon 05-17-2024 Albumin/Globulin (S) [Mass conc ratio] 1.4 Normal 1.1-2.2 [facility] Comment on above: Performed By: #### 2 718633 #### [facility] [address] [place] [address] ALP [Catalytic activity/Vol] 42 Int._Unit/L Normal 21-98 [facility] Comment on above: Performed By: #### 2 186291 #### [facility] [address] [place] [address] ALT No additional P-5'-P [Catalytic activity/Vol] 13 Int._Unit/L Normal 6-46 [facility] Comment on above: Performed By: #### 2 487686 #### [facility] [address] [place] [address] AST [Catalytic activity/Vol] 11 Int._Unit/L Normal 5-43 [facility] Comment on above: Performed By: #### 2 096920 #### [facility] [address] [place] [address] [id number] By: Clementine sweet on 05-17-2024 HbA1c (Bld) [Mass fraction] 6.1 % High <=5.9 [facility] ChemAutoSS Comment on above: Performed By: #### 7 [id number] #### [facility] [address] [place] [address] Lipid PanelOrdered By: ApniCure SYSTEM on 05-17-2024 Cholesterol [Mass/Vol] 153 mg/dL Normal 120-200 Remisol Chem Comment on above: Performed By: #### 2 099249 #### [facility] [address] [place] [address] Cholesterol in HDL [Mass/Vol] 27 mg/dL Invalid Interpretation Code Remisol Chem Comment on above: Result Comment: '>= 60 LOW RISK' '<= 40 HIGH RISK' Result Comment: '>= 60 LOW RISK' '<= 40 HIGH RISK' Performed By: #### 2 [id number] #### [facility] [address] [place] [address] Cholesterol in LDL [Mass/Vol] 103 mg/dL Normal <=129 Rem[facility] Chem Comment on above: Performed By: #### 2 933225 #### [facility] [address] [place] [address] Cholesterol in VLDL [Mass/Vol] 48 mg/dL High 7-40 Rem[facility] Chem Comment on above: Performed By: #### 2 684957 #### [facility] [address] [place] [address] Triglyceride [Mass/Vol] 238 mg/dL High <=149 Rem[facility] Chem Comment on above: Performed By: #### 2 593379 #### [facility] [address] [place] [address] eGFROrdered By: SYSTEM SYSTE WebTV on 05-17-2024 eGFR 90 mL/min/1.73 m2 Normal >=59 Remisol Chem Comment on above: Order Comment: Order added by Discern Expert. Performed By: #### 1 [id number] #### [facility] [address] [place] [address] CBC w/Indiceson 05-03-2024 Erythrocyte distribution width (RBC) [Ratio] 13.9 % Normal 10.9-14.2 [facility] Comment on above: Performed By: #### 2 [id number] #### [facility] [address] [place] [address] Hematocrit (Bld) [Volume fraction] 48.3 % High 34.0-46.0 [facility] Comment on above: Performed By: #### 2 740563 #### [facility] [address] [place] [address] Hemoglobin (Bld) [Mass/Vol] 16.0 g/dL Normal 12.0-16.0 [facility] Comment on above: Performed By: #### 2 349324 #### [facility] [address] [place] [address] MCH (RBC) [Entitic mass] 33.6 pg Normal 27.0-34.0 [facility] Comment on above: Performed By: #### 2 969648 #### [facility] [address] [place] [address] MCHC (RBC) [Mass/Vol] 33.1 g/dL Normal 31.4-36.0 [facility] Comment on above: Performed By: #### 2 650867 #### [facility] [address] [place] [address] MCV (RBC) [Entitic vol] 101.6 fL High 80.0-100.0 [facility] Comment on above: Performed By: #### 2 680693 #### [facility] [address] [place] [address] Platelet mean volume (Bld) [Entitic vol] 10.1 fL Normal 6.4-10.8 [facility] Comment on above: Performed By: #### 2 405236 #### [facility] [address] [place] [address] Platelets (Bld) [#/Vol] 230.0 E9/L Normal 150.0-500.0 [facility] Comment on above: Performed By: #### 2 869550 #### [facility] [address] [place] [address] RBC (Bld) [#/Vol] 4.8 E12/L Normal 4.3-5.9 [facility] Comment on above: Performed By: #### 2 662752 #### [facility] [address] [place] [address] RBC size Nom (Bld) NORMAL Invalid Interpretation Code [facility] Comment on above: Performed By: #### 2 [id number] #### [facility] [address] [place] [address] WBC corrected for nucl RBC Auto (Bld) [#/Vol] 15.1 E9/L High 4.0-11.0 [facility] Comment on above: Performed By: #### 2 066311 #### [facility] [address] [place] [address] Consent for Treatmenton 04-09 Consent for Treatment [id number] Normal [facility] HEMATOLOGYOrdered By: SYSTEM SYSTEM on 05-03-2024 Erythrocyte distribution width (RBC) [Ratio] 13.9 % Normal 10.9 - 14.2 % [facility] Heme Hematocrit (Bld) [Volume fraction] 48.3 % High 34.0 - 46.0 % [facility] Heme Hemoglobin (Bld) [Mass/Vol] 16.0 g/dL Normal 12.0 - 16.0 gm/dL [facility] Hem[facility] MCH (RBC) [Entitic mass] 33.6 pg Normal 27.0 - 34.0 pg Rem[facility] Heme MCHC (RBC) [Mass/Vol] 33.1 g/dL Normal 31.4 - 36.0 gm/dL [facility] Heme MCV (RBC) [Entitic vol] 101.6 fL High 80.0 - 100.0 fL [facility] Platelet mean volume (Bld) [Entitic vol] 10.1 fL Normal 6.4 - 10.8 fL [facility] Platelets (Bld) [#/Vol] 230.0 E9/L Normal 150.0 - 500.0 E9/L [facility] Hem[facility] RBC (Bld) [#/Vol] 4.8 E12/L Normal 4.3 - 5.9 E12/L [facility] RBC size Nom (Bld) NORMAL *NA* (05/03/24 1:30 PM) Invalid Interpretation Code [facility] WBC corrected for nucl RBC Auto (Bld) [#/Vol] 15.1 E9/L High 4.0 - 11.0 E9/L [facility] Hem[facility] Physician Orderon 05-03-2024 Physician Order [id number] Normal [facility] Basic metabolic 2000 panelon 05-02-2024 Anion gap [Moles/Vol] 11 mmol/L 10 - 2 0 mmol/L [facility] Calcium [Mass/Vol] 8.1 mg/dL Low 8.6 - 10. 3 mg/dL [facility] Chloride [Moles/Vol] 111 mmol/L High 98 - 10 7 mmol/L [facility] CO2 [Moles/Vol] 20 mmol/L Low 21 - 32 mmol/L [facility] Creatinine [Mass/Vol] 0.64 mg/dL 0.50 - 1.05 mg/dL [facility] eGFR - PINF [facility] Comment on above: Calculations of cristian mated GFR are performed using the 2020 CKD-EPI Study Refit equation without the race variable for the IDMS-Traceable creatinine methods. https://jasn.asnjournals.org/content//ASN.893519 2662 Glucose [Mass/Vol] 142 mg/dL High 74 - 99 mg/dL [facility] Interpretation and review of laboratory results Abnormal [facility] Potassium [Moles/Vol] 3.8 mmol/L 3.5 - 5.3 mmol/L [facility] Sodium [Moles/Vol] 138 mmol/L 136 - 145 mmol/L [facility] Urea nitrogen [Mass/Vol] 13 mg/dL 6 - 23 mg/dL [facility] ECG 12-LEADon 05-02-2024 ECG 12-LEAD Ventricular Rate 60 Atrial Rate 60 P-R Interval 226 QRS Duration 90 Q-T Interval 454 QTC Calculation(Bazett) 454 P [place] 96 R [place] 69 T [place] 19 QRS Count 10 Q Onset 214 P Onset 143 P Offset 173 T Offset 441 QTC Fredericia 454 Diagnosis Atrial-paced rhythm with prolonged AV conduction Abnormal ECG When compared with ECG of 02-MAY-2024 12:28, (unconfirmed) Electronic atrial pacemaker has replaced Sinus rhythm Confirmed by Talisha Crain ([id number]) on 05/04/2024 3:31:41 PM Normal [facility] ECG 12-LEAD Ventricular Rate 52 Atrial Rate 52 P-R Interval 174 QRS Duration 86 Q-T Interval 454 QTC Calculation(Bazett) 422 P [place] 44 R [place] 68 T [place] 33 QRS Count 9 Q Onset 219 P Onset 132 P Offset 176 T Offset 446 QTC Fredericia 432 Diagnosis Sinus bradycardia Otherwise normal ECG When compared with ECG of 10-DEC-2023 06:21, No significant change was found Confirmed by Talisha Crain ([id number]) on 05/04/2024 3:31:08 PM Normal [facility] Electrophysiology studyon [facility] Work Phone: HCG.beta subunit Qnon 2023 Interpretation and review of laboratory results Normal [facility] Total HCG measuremen t is performed using the [employer] [place] Access Immunoassay which detects intact HCG and free beta HCG subunit. This test is not indicated for use as a tumor marker. HCG testing is performed using a different test methodology at [facility] than other [facility]. Direct result comparison should only be made within the same method. [facility] Human Chorionic Gonadotropin , Serum Quantitativeon 05-02-2024 HCG.beta subunit Qn 2 m[IU]/mL NINF [facility] PT and aPTT panel Coag (PPP) on 05-02-2024 aPTT Coag (PPP) [Time] 32 s [facility] INR Coag (PPP) [Relative time] 1.0 {INR} 0.9 - 1.1 [facility] Interpretation and review of laboratory results Normal [facility] PT Coag (PPP) [Time] 11.6 s [facility] The APTT is no longe r used for monitoring Unfractionated Heparin Therapy. For monitoring Heparin Therapy, use the Heparin Assay. [facility] US Heart TransthoracicOrdere d By: Charissa Mckinnon on 05-02-2024 Aortic Valve Area by Continuity of Peak Velocity 2.26 cm2 [facility] Work Phone: Aortic Valve Area by Continuity of VTI 2.31 cm2 [facility] Work Phone: AV mn grad 3.0 mmHg [facility] Work Phone: AV pk grad 5.4 mmHg [facility] Work Phone: AV pk haritha 1.16 m/s [facility] Work Phone: LA vol index A/L 19.0 ml/m2 [facility] Work Phone: 00 LV A4C EF 56.1 [facility] Work Phone: 00 LV Biplane EF 58 % [facility] Work Phone: LVIDd 4.62 cm [facility] Work Phone: LVOT diam 1.98 cm [facility] Work Phone: MV E/A ratio 2.12 [facility] Work Phone: 00 RV free wall pk S' 17.70 cm/s [facility] Work Phone: Tricuspid annular plane systolic excursion 2.8 cm [facility] Work Phone: [facility] Work Phone: Heart Transthoracicon [address] [address] TRANSTHORACIC ECHOCARDIOGRAM REPORT Patient Name: HIEN LAM Reading Physician: [id number] Charissa Mckinnon DO Study Date: 05/02/2024 Ordering Provider: [id number] ANALIA GRAY MRN/PID: [id number] Fellow: Nurse: Date of /Age: 11 1975 / 48 years Yeast Pusher: Monet Hoover RD Gender: F Additional Staff: Height: 165.10 cm Admit Date: 05/02/2024 Weight: 88.91 kg Admission Status: Inpatient - Routine BSA / BMI: 1.96 m2 / 32.62 Department Location: [place] [address] Echo Lab Blood Pressure: 90 /60 mmHg Study Type: TRANSTHORACIC ECHO (TTE) COMPLETE Diagnosis/ICD: Encounter for preprocedural cardiovascular examination-Z01.810 Indication: PRE-EP, PRE-PPM CPT Codes: Echo Complete w Full Doppler-02682 Patient History: Smoker: Current. Diabetes: Yes Pertinent History: HTN, Hyperlipidemia, Chest Pain and SSS. Study Detail: The following Echo studies were performed: 2D, Doppler, M-Mode and color flow. The patient was awake. PHYSICIAN INTERPRETATION: Left Ventricle: The left ventricular systolic function is normal, with a visually estimated ejection fraction of 55-60%. There are no regional wall motion abnormalities. The left ventricular cavity size is normal. There is mild concentric left ventricular hypertrophy. Spectral Doppler shows a normal pattern of left ventricular diastolic filling. LV Wall Scoring: All segments are normal. Left Atrium: The left atrium is mildly dilated. Right Ventricle: The right ventricle is normal in size. There is normal right ventricular global systolic function. Right Atrium: The right atrium is upper limits of normal in size. Aortic Valve: The aortic valve appears structurally normal. The aortic valve appears tricuspid. There is no evidence of aortic valve stenosis. The aortic valve dimensionless index is 0.75. There is no evidence of aortic valve regurgitation. The peak instantaneous gradient of the aortic valve is 5.4 mmHg. The mean gradient of the aortic valve is 3.0 mmHg. Mitral Valve: The mitral valve is normal in structure. There is no evidence of mitral valve stenosis. There is normal mitral valve leaflet mobility. There is no evidence of mitral valve regurgitation. Tricuspid Valve: The tricuspid valve is structurally normal. There is normal tricuspid valve leaflet mobility. There is trace tricuspid regurgitation. Pulmonic Valve: The pulmonic valve is structurally normal. There is no indication of pulmonic valve regurgitation. Pericardium: There is no pericardial effusion noted. Aorta: The aortic root is normal. Pulmonary Artery: The main pulmonary artery is normal in size, and position, with normal bifurcation into the left and right pulmonary arteries. Systemic Veins: The inferior vena cava appears to be of normal size. In comparison to the previous echocardiogram(s): There are no prior studies on this patient for comparison purposes. CONCLUSIONS: 1. The left ventricular systolic function is normal, with a visually estimated ejection fraction of 55-60%. 2. There is normal right ventricular global systolic function. 3. There is no evidence of mitral valve stenosis. 4. No evidence of mitral valve regurgitation. 5. Trace tricuspid regurgitation is visualized. 6. Aortic valve stenosis is not present. 7. The main pulmonary artery is normal in size, and position, with normal bifurcation into the left and right pulmonary arteries. QUANTITATIVE DATA SUMMARY: 2D MEASUREMENTS: Normal Ranges: Ao Root d: 2.72 cm (2.0-3.7cm) LAs: 4.20 cm (2.7-4.0cm) IVSd: 1.22 cm (0.6-1.1cm) LVPWd: 0.99 cm (0.6-1.1cm) LVIDd: 4.62 cm (3.9-5.9cm) LVIDs: 3.31 cm LV Mass Index: 93.9 g/m2 LV % FS 28.4 % LA VOLUME: Normal Ranges: LA Vol A4C: 38.0 ml (22+/-6mL/m2) LA Vol A2C: 35.3 ml LA Vol BP: 37.2 ml LA Vol Index A4C: 19.4ml/m2 LA Vol Index A2C: 18.0 ml/m2 LA Vol Index BP: 19.0 ml/m2 LA Area A4C: 15.6 cm2 LA Area A2C: 14.8 cm2 LA Major [place] A4C: 5.4 cm LA Major [place] A2C: 5.3 cm LA Volume Index: 18.3 ml/m2 RA VOLUME BY A/L METHOD: Normal Ranges: RA Vol A4C: 35.1 ml (8.3-19.5ml) RA Vol Index A4C: 17.9 ml/m2 RA Area A4C: 13.8 cm2 RA [place] A4C: (more content not included)... Charissa Ocampo DO - 05/02/2024 [place] [address] TRANSTHORACIC ECHOCARDIOGRAM REPORT Patient Name: HIEN LAM Reading Physician: [id number] Charissa Mckinnon DO Study Date: 05/02/2024 Ordering Provider: [id number] ANALIA GRAY MRN/PID: [id number] Fellow: Nurse: Date of /Age: 11 1975 / 48 years Yeast Pusher: Monet Hoover RDCS Gender: F Additional Staff: Height: 165.10 cm Admit Date: 05/02/2024 Weight: 88.91 kg Admission Status: Inpatient - Routine BSA / BMI: 1.96 m2 / 32.62 Department Location: [place] [address] Echo Lab Blood Pressure: 90 /60 mmHg Study Type: TRANSTHORACIC ECHO (TTE) COMPLETE Diagnosis/ICD: Encounter for preprocedural cardiovascular examination-Z01.810 Indication: PRE-EP, PRE-PPM CPT Codes: Echo Complete w Full Doppler-07291 Patient History: Smoker: Current. Diabetes: Yes Pertinent History: HTN, Hyperlipidemia, Chest Pain and SSS. Study Detail: The following Echo studies were performed: 2D, Doppler, M-Mode and color flow. The patient was awake. PHYSICIAN INTERPRETATION: Left Ventricle: The left ventricular systolic function is normal, with a visually estimated ejection fraction of 55-60%. There are no regional wall motion abnormalities. The left ventricular cavity size is normal. There is mild concentric left ventricular hypertrophy. Spectral Doppler shows a normal pattern of left ventricular diastolic filling. LV Wall Scoring: All segments are normal. Left Atrium: The left atrium is mildly dilated. Right Ventricle: The right ventricle is normal in size. There is normal right ventricular global systolic function. Right Atrium: The right atrium is upper limits of normal in size. Aortic Valve: The aortic valve appears structurally normal. The aortic valve appears tricuspid. There is no evidence of aortic valve stenosis. The aortic valve dimensionless index is 0.75. There is no evidence of aortic valve regurgitation. The peak instantaneous gradient of the aortic valve is 5.4 mmHg. The mean gradient of the aortic valve is 3.0 mmHg. Mitral Valve: The mitral valve is normal in structure. There is no evidence of mitral valve stenosis. There is normal mitral valve leaflet mobility. There is no evidence of mitral valve regurgitation. Tricuspid Valve: The tricuspid valve is structurally normal. There is normal tricuspid valve leaflet mobility. There is trace tricuspid regurgitation. Pulmonic Valve: The pulmonic valve is structurally normal. There is no indication of pulmonic valve regurgitation. Pericardium: There is no pericardial effusion noted. Aorta: The aortic root is normal. Pulmonary Artery: The main pulmonary artery is normal in size, and position, with normal bifurcation into the left and right pulmonary arteries. Systemic Veins: The inferior vena cava appears to be of normal size. In comparison to the previous echocardiogram(s): There are no prior studies on this patient for comparison purposes. CONCLUSIONS: 1. The left ventricular systolic function is normal, with a visually estimated ejection fraction of 55-60%. 2. There is normal right ventricular global systolic function. 3. There is no evidence of mitral valve stenosis. 4. No evidence of mitral valve regurgitation. 5. Trace tricuspid regurgitation is visualized. 6. Aortic valve stenosis is not present. 7. The main pulmonary artery is normal in size, and position, with normal bifurcation into the left and right pulmonary arteries. QUANTITATIVE DATA SUMMARY: 2D MEASUREMENTS: Normal Ranges: Ao Root d: 2.72 cm (2.0-3.7cm) LAs: 4.20 cm (2.7-4.0cm) IVSd: 1.22 cm (0.6-1.1cm) LVPWd: 0.99 cm (0.6-1.1cm) LVIDd: 4.62 cm (3.9-5.9cm) LVIDs: 3.31 cm LV Mass Index: 93.9 g/m2 LV % FS 28.4 % LA VOLUME: Normal Ranges: LA Vol A4C: 38.0 ml (22+/-6mL/m2) LA Vol A2C: 35.3 ml LA Vol BP: 37.2 ml LA Vol Index A4C: 19.4ml/m2 LA Vol Index A2C: 18.0 ml/m2 LA Vol Index BP: 19.0 ml/m2 LA Area A4C: 15.6 cm2 LA Area A2C: 14.8 cm2 LA [place] A4C: 5.4 cm LA [place] A2C: 5.3 cm LA Volume Index: 18.3 ml/m2 RA VOLUME BY A/L METHOD: Normal Ranges: RA Vol A4C: 35.1 ml (8.3-19.5ml) RA Vol Index A4C: 17.9 ml/m2 RA Area A4C: 13.8 cm2 RA [place] A4C: 4.6 cm AORTA MEASUREMENTS: Normal Ranges: Asc Ao, d: 2.82 cm (2.1-3.4cm) LV SYSTOLIC FUNCTION BY 2D PLANIMETRY (MOD): Normal Ranges: EF-A4C View: 56 % (>=55%) EF-A2C View: 59 % EF-Biplane: 58 % EF-Visual: 58 % LV EF Reported: 58 % LV DIASTOLIC FUNCTION: Normal Ranges: MV Peak E: 1.06 m/s (0.7-1.2 m/s) MV Peak A: 0.50 m/s (0.42-0.7 m/s) E/A Ratio: 2.12 (1.0-2.2) MV e' 0.065 m/s (>8.0) MV lateral e' 0.07 m/s MV medial e' 0.06 m/s E/e' Ratio: 16.25 (<8.0) MITRAL VALVE: Normal Ranges: MV DT: 338 msec (150-240msec) AORTIC VALVE: Nor (more content not included)... [facility] Work Phone: XR Chest Single viewon 05-02 Status post pacemake r placement without pneumothorax. Signed by: Josemanuel Lucero 05/02/2024 6:02 PM Dictation workstation: [id number] MMODAL Interpreted By: Josemanuel Dave, STUDY: XR CHEST 1 VIEW INDICATION: Signs/Symptoms:post implant. COMPARISON: November 03, 2019 CT abdomen ACCESSION NUMBER(S): [id number] ORDERING CLINICIAN: ANALIA GRAY FINDINGS: No consolidation, effusion, edema, or pneumothorax. Pacemaker with 2 leads with a satisfactory appearance. No pneumothorax. MMODAL Josemanuel Lucero MD - 05/02/2024 Interpreted By: Josemanuel Lucero, STUDY: XR CHEST 1 VIEW INDICATION: Signs/Symptoms:post implant. COMPARISON: November 03, 2019 CT abdomen ACCESSION NUMBER(S): [id number] ORDERING CLINICIAN: ANALIA GRAY FINDINGS: No consolidation, effusion, edema, or pneumothorax. Pacemaker with 2 leads with a satisfactory appearance. No pneumothorax. IMPRESSION: Status post pacemaker placement without pneumothorax. Signed by: Josemanuel Lucero 05/02/2024 6:02 PM Dictation workstation: [id number] [facility] Work Phone: Radiology Study observation (narrative) [facility] Work Phone: XR Chest Single viewOrdered By: Josemanuel Lucero on 05-02-2024 [facility] Work Phone: Cardiac Device Check - In Cl inicon 04-19-2024 [facility] Work Phone: Radiology Study observation (narrative) [facility] Work Phone: ECG 12 lead (Clinic Performe d)on 04-19-2024 EKG performed today shows sinus bradycardia rate of 52 bpm QRS duration 90 ms QT corrected 480 ms. Rhythm strip shows the same pattern. [facility] Work Phone: [facility] Work Phone: Cardiac Device Check - Remot christiano 03-31-2024 [facility] Work Phone: Radiology Study observation (narrative) [facility] Work Phone: Cardiac Device Check - Remot christiano 02-25-2024 Radiology Study observation (narrative) [facility] Work Phone: [facility] Work Phone: No Panel Informationon 01-20 Radiology Study observation (narrative) [facility] Work Phone: [facility] Work Phone: Consent for Treatmenton 01-06 Consent for Treatment [id number] Normal [facility] Discharge Instructionson Discharge Instructions [id number] Normal [facility] ED Clinical Summaryon 2023 ED Clinical Summary (Inserted Image. Farheen ble to display) [place] [id number] ED Clinical Summary Person Information Name: HIEN LAM [place] Age: 48 Years : 1975 Sex: Female Language: Gabonese PCP: Mindy Morgan MD Marital Status: Single Phone: [phone] MRN: Visit Id: Visit Reason: Vomiting; Body aches; Rash; VOMITING, FEVER, BODY PAIN ,BLISTERS Speciality: Acuity: 3 Enc Type: Emergency Med Service: Emergency Arrival: 01/20/2024 10:56:41 Discharge: 01/20/2024 12:48:47 LOS: 000 01:52 Checkin: 01/20/2024 10:56:41 Checkout: 01/20/2024 12:48:47 Dispo Type: Home (Routine DC) EVENTS: Event Name Event Status Request Date/Time Start Date/Time Complete Date/Time Arrive Complete 01/20/2024 10:56:41 01/20/2024 10:56:41 01/20/2024 10:56:41 Document Home Meds Request 01/20/2024 10:56:41 Triage Complete 01/20/2024 10:56:41 01/20/2024 11:11:06 01/20/2024 11:11:06 Bed Assign Complete 01/20/2024 11:02:18 01/20/2024 11:02:18 01/20/2024 11:02:18 Dr Exam Complete 01/20/2024 11:02:18 01/20/2024 11:04:18 01/20/2024 11:04:18 RN Exam Complete 01/20/2024 11:02:18 01/20/2024 11:15:49 01/20/2024 11:15:49 Registration Complete 01/20/2024 11:02:34 01/20/2024 11:02:34 01/20/2024 11:02:34 Reg Complete Request 01/20/2024 11:02:34 Reg Bed Request Complete 01/20/2024 11:02:34 01/20/2024 11:02:34 01/20/2024 11:02:34 Registration Start 01/20/2024 11:04:18 01/20/2024 11:12:01 Isolation Screening Request 01/20/2024 11:11:07 Pending Labs Complete 01/20/2024 11:26:50 01/20/2024 11:55:16 Swab Complete 01/20/2024 11:26:50 01/20/2024 11:55:16 Meds Admin Complete 01/20/2024 12:21:27 01/20/2024 12:48:07 Discharge Complete 01/20/2024 12:26:57 01/20/2024 12:48:51 01/20/2024 12:48:51 Transfer Complete 01/20/2024 12:48:51 01/20/2024 12:48:51 01/20/2024 12:48:51 ADDRESS: [address] [place] [phone] PHYS DOC NOTES: MEDICAL INFORMATION: Prescriptions Given: Medications to Continue with No Changes Other Medications albuterol (albuterol 0.083% Inh Tiffanie 3 mL) 3 Milliliter Inhalation every 6 hours. Q6H and PRN. albuterol (albuterol CFC free 90 mcg/inh Inh Aer w/Adapt 8 gm (Ventolin)) 2 Puffs Inhalation 4 times a day. Refills: 0. aspirin (aspirin 81 mg Oral EC Tab) 1 Tablets By Mouth every day. atorvastatin (Lipitor 20 mg Tab) 2 Tablets By Mouth every day. 40 mg. cephalexin (cephalexin 500 mg Cap) 1 Capsules By Mouth 4 times a day. Refills: 0. ergocalciferol (Vitamin D2 2000 intl units oral capsule) ertugliflozin (Steglatro 15 mg oral tablet) fenofibrate (fenofibrate 145 mg Tab) 1 Tablets By Mouth every day. gabapentin (gabapentin 800 mg Tab) 1 Tablets By Mouth 4 times a day. ibuprofen (ibuprofen 600 mg Tab) 1 Tablets By Mouth every 6 hours as needed as needed for pain. Refills: 0. insulin isophane-insulin regular (NovoLIN 70/30 FlexPen subcutaneous suspension) lisinopril (lisinopril 5 mg Tab) 1 Tablets By Mouth every day. mifepristone (Korlym 300 mg oral tablet) 1 Tablets By Mouth every day. mupirocin topical (mupirocin Top 2% Oint) 1 Application Topical 3 times a day. Refills: 0. mupirocin topical (mupirocin Top 2% Oint) 1 Application Topical 3 times a day. Refills: 0. naproxen (Naprosyn 500 mg Tab) 1 Tablets By Mouth 2 times a day. Refills: 0. naproxen (Naprosyn 500 mg Tab) 1 Tablets By Mouth 2 times a day as needed for pain. Refills: 0. pantoprazole (Protonix 40 mg Tab-DR) 1 Tablets By Mouth every day. spironolactone (spironolactone 25 mg Tab) tiotropium (Spiriva Respimat 28 ACT 2.5 mcg/inh inhalation aerosol) topiramate (Topamax 200 mg Tab) 1 Tablets By Mouth 2 times a day. valacyclovir (Valtrex) 500 Milligram By Mouth every day. PATIENT EDUCATION INFORMATION: Instructions: Viral Illness, Adult; Rash, Adult Follow up: With: Address: When: Mindy Morgan [address] [place] [address], [address] [place] [id number] [facility] (1) In 3 days 01/23/2024 Comments: Make sure to follow-up with your information systems supervisor. Call the office to see if they can see you sooner than . Follow-up with your primary doctor as well. Return to the emergency room if the rash gets worse, fever or any new symptoms DIAGNOSIS: 1:Flu-like symptoms; 2:Skin rash Normal [facility] ED Note-Physicianon 01-20-20 ED Note-Physician Basic Information Time Seen: Dana Engel M.D. 01/20/2024 11:04 Chief Complaint woke up this am with blisters to right groin, right breast. also c/o generalized body aches and vomit x 1. pt thinks she has shingles History of Present Illness The patient is a 48-year-old female who presented to the emergency room with skin rash and flulike symptoms. The patient states for past couple days she has been having headache. She reports generalized body ache. She reports some sore throat. The patient states yesterday she had some rash on the right breast which looked like a blister. She rubbed them off and broke the blisters. The patient states today she developed some rash in the right groin. The patient reports some nausea and vomited once. She denies any abdominal pain. The patient states she thought she had a fever. The patient denies any cough. She denies any other associated symptoms. Review of Systems Additional ROS info: Except as noted in the above Review of Systems and in the History of Present Illness all other systems have been reviewed and are negative or noncontributory. Physical Exam Vitals & Measurements T: 36.8 ?C(Oral) HR: 64(Peripheral) RR: 18 BP: 135/76 SpO2: 94% HT: 165.1 cm WT: 90.5 kg BMI: 33.2 General: alert, no acute distress Skin: warm, dry, there is some papular lesions under the right breast anteriorly to the chest as well as in the right groin/proximal thigh. There is no blisters appreciated. No rash on the lateral aspect of the trunk or posteriorly. Head: no trauma, normocephalic Neck: Trachea midline, no tenderness, supple, no meningeal signs Eye: normal conjunctiva, sclera clear, PERRL, EOMI, vision unchanged ENMT: Oral mucosa moist, no pharyngeal erythema or exudate Cardiovascular: regular rate and rhythm Respiratory: Lungs CTA, respirations non labored, breath sounds equal Gastrointestinal: soft, non distended, no tenderness, no guarding Extremities: no deformity, no trauma Neurological: Alert and oriented, motor strength equal & normal bilaterally, sensation equal & normal bilaterally, speech normal, no focal neuro deficits, Psychiatric: cooperative, affect appropriate for age, Medical Decision Making MEDICAL DECISION MAKING Number and Complexity of Problems Differential Diagnosis: [] [facility] Data External documents reviewed: [] My EKG interpretation: [] My CT interpretation: [] My X-ray interpretation: [] My Ultrasound interpretation: [] Decision rules/scores evaluated: [] Discussed with: Dr. Dolan Treatment and Disposition ED Course: The patient presented with flulike symptoms and skin rash. Her rash is nonspecific. Less likely shingles. She has few lesions under the right breast and on the right groin/proximal thigh. There is no vesicular lesion. The rash does not extend laterally nor posteriorly. Her flu is negative. The patient does not appear toxic at all. She is afebrile. She is on valacyclovir 500 mg daily for herpes. The case was discussed with Dr. Dolan who recommends patient be evaluated by information systems supervisor. The patient later told me that she has an appointment with her information systems supervisor for February 01. Will discharge patient home she will continue gabapentin and follow-up with her information systems supervisor. She is instructed to return to the emergency room if the rash gets worse, fever or any new symptoms. Shared decision making: [] Code status: [] Assessment/Plan 1. Flu-like symptoms (R68.89: Other general symptoms and signs) 2. Skin rash (R21: Rash and other nonspecific skin eruption) Orders: acetaminophen, 650 mg = 2 tab(s), Tab, Oral, Once, Stop date 01/20/24 12:21:00 EDT, STAT, Start date 01/20/24 12:21:00 EDT, 01/20/24 12:21:00 EDT Influenza A&B Ag Disposition Plan Patient Discharge Condition Stable Discharge Disposition Discharge home Discharge Prescription List Prescriptions No active prescription medications Follow-up With When Contact Information Mindy Morgan In 3 days 01/23/[address] [place] [id number] Business (1) Additional Instructions: Make sure to follow-up with your information systems supervisor. Call the office to see if they can see you sooner than . Follow-up with your primary doctor as well. 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 Normal [facility] Comment on above: Result Comment: Elec tromichaelaally Signed By: Dana Engel M.D..makenna\Date and Time Signed: 01/20/24 16:11 EDT ED Patient Education Noteon 01-20-2024 ED Patient Education Note Infectious Disease Viral Illness, Adult Viruses are tiny germs that can get into a person's body and cause illness. There are many different types of viruses, and they cause many types of illness. Viral illnesses can range from mild to severe. They can affect various parts of the body. Short-term conditions that are caused by a virus include colds and the flu (influenza). Long-term conditions that are caused by a virus include herpes, shingles, and HIV (human immunodeficiency virus) infection. A few viruses have been linked to certain cancers. What are the causes? Many types of viruses can cause illness. Viruses invade cells in your body, multiply, and cause the infected cells to work abnormally or . When these cells , they release more of the virus. When this happens, you develop symptoms of the illness, and the virus continues to spread to other cells. If the virus takes over the function of the cell, it can cause the cell to divide and grow out of control. This happens when a virus causes cancer. Different viruses get into the body in different ways. You can get a virus by: ? Swallowing food or water that has come in contact with the virus (is contaminated). ? Breathing in droplets that have been coughed or sneezed into the air by an infected person. ? Touching a surface that has been contaminated with the virus and then touching your eyes, nose, or mouth. ? Being bitten by an insect or animal that carries the virus. ? Having sexual contact with a person who is infected with the virus. ? Being exposed to blood or fluids that contain the virus, either through an open cut or during a transfusion. If a virus enters your body, your body's defense system (immune system) will try to fight the virus. You may be at higher risk for a viral illness if your immune system is weak. What are the signs or symptoms? You may have these symptoms, depending on the type of virus and the location of the cells that it invades: ? Cold and flu viruses: ? Fever. ? Headache. ? Sore throat. ? Muscle aches. ? Stuffy nose (nasal congestion). ? Cough. ? Digestive system (gastrointestinal) viruses: ? Fever. ? Pain in the abdomen. ? Nausea. ? Diarrhea. ? Liver viruses (hepatitis): ? Loss of appetite. ? Tiredness. ? Skin or the white parts of your eyes turning yellow (jaundice). ? Brain and spinal cord viruses: ? Fever. ? Headache. ? Stiff neck. ? Nausea and vomiting. ? Confusion or sleepiness. ? Skin viruses: ? Warts. ? Itching. ? Rash. ? Sexually transmitted viruses: ? Discharge. ? Swelling. ? Redness. ? Rash. How is this diagnosed? This condition may be diagnosed based on one or more of the following: ? Symptoms. ? Medical history. ? Physical exam. ? Blood test, sample of mucus from your lungs (sputum sample), stool sample, or a swab of body fluids or a skin sore (lesion). How is this treated? Viruses can be hard to treat because they live within cells. Antibiotic medicines do not treat viruses because these medicines do not get inside cells. Treatment for a viral illness may include: ? Resting and drinking plenty of fluids. ? Medicines to relieve symptoms. These can include jrik-uqs-ljulwdt medicine for pain and fever, medicines for cough or congestion, and medicines to relieve diarrhea. ? Antiviral medicines. These medicines are available only for certain types of viruses. Some viral illnesses can be prevented with vaccinations. A common example is the flu shot. Follow these instructions at home: Medicines ? Take pugp-uiq-gqprvyr and prescription medicines only as told by your health care provider. ? If you were prescribed an antiviral medicine, take it as told by your health care provider. Do not stop taking the antiviral even if you start to feel better. ? Be aware of when antibiotics are needed and when they are not needed. Antibiotics do not treat viruses. You may get an antibiotic if your health care provider thinks that you may have, or are at risk for, a bacterial infection and you have a viral infection. ? Do not ask for an antibiotic prescription if you have been diagnosed with a viral illness. Antibiotics will not make your illness go away faster. ? Frequently taking antibiotics when they are not needed can lead to antibiotic resistance. When this develops, the medicine no longer works against the bacteria that it normally fights. General instructions ? Drink enough fluids to keep your urine pale yellow. ? Rest as much as possible. ? Return to your normal activities as told by your health care provider. Ask your health care provider what activities are safe for you. ? Keep all follow-up visits as told by your health care provider. This is important. How is this prevented? To reduce your risk of viral illness: ? Wash your hands often with soap and water for at least 20 seconds. If soap and water are (more content not included)... Normal [facility] ED Patient Summaryon 024 ED Patient Summary (Inserted Image. Farheen ble to display) [address] [address] Patient Discharge Instructions Person Information Name: HIEN LAM Age: 48 Years Arrival Date: 01/20/2024 10:56:41 Discharge Diagnosis: 1:Flu-like symptoms; 2:Skin rash Primary Care Physician: Mindy Morgan MD Provider Information Primary Provider: Dana Engel M.D. Advanced Field Service Engineer:None The exam and treatment you received in the Emergency Department were for an urgent problem and are not intended as complete care. It is important that you follow up with a doctor, nurse practitioner, or physician?s medical receptionist medical assistant for ongoing care. If your symptoms become worse or you do not improve as expected and you are unable to reach your usual health care provider, you should return to the Emergency Department. We are available 24 hours a day. AGUSTIN LAMADETTRuthie Colvin has been given the following list of patient education materials, prescriptions and follow-up instructions: Follow-up Instructions: With: Address: When: Mindy Morgan [address] [place] [address]., [address] [place], [place] [phone] Business (1) In 3 days 01/23/2024 Comments: Make sure to follow-up with your information systems supervisor. Call the office to see if they can see you sooner than . Follow-up with your primary doctor as well. Return to the emergency room if the rash gets worse, fever or any new symptoms In the event that this physician does not participate in your insurance network, please consult with your insurance company to find a nearby participating provider. Patient Education Materials: Viral Illness, Adult; Rash, Adult A MESSAGE TO ALL PATIENTS REGARDING OPIOIDS PRESCRIPTION OPIOIDS: WHAT YOU NEED TO KNOW Prescription opioids can be used to help relieve zimzjuuj-lf-jwcjtm pain and are often prescribed following a surgery or injury, or for certain health conditions. These medications can be an important part of the treatment but also come with serious risks. It is important to work with your healthcare provider to make sure you are getting the safest, most effective care. WHAT ARE THE RISKS AND SIDE EFFECTS OF OPIOID USE? Prescription opioids carry serious risks of addiction and overdose, especially with prolonged use. An opioid overdose, often marked by slowed breathing, can cause sudden . The use of prescription opioids can have a number of side effects as well, even when taken as directed: ? Tolerance?meaning you might need to take more of the medication for the same pain relief ? Physical dependence?meaning you have symptoms of withdrawal when a medication is stopped ? Increased sensitivity to pain ? Constipation ? Nausea, vomiting, and dry mouth ? Sleepiness and dizziness ? Confusion ? Depression ? Low levels of testosterone that can result in lower sex drive, energy, and strength ? Itching and sweating RISKS ARE GREATER WITH: ? History of drug misuse, substance use disorder, or overdose ? Mental health conditions (such as depression or anxiety) ? Sleep apnea ? Older age (65 years and older) ? Avoid alcohol while taking prescription opioids. Also, unless specifically advised by your health care provider, medications to avoid include: ? Benzodiazepines (such as Xanax or Valium) ? Muscle relaxants (such as Soma or Flexeril) ? Hypnotics (such as Ambien or Lunesta) ? Other prescription opioids KNOW YOUR OPTIONS Talk to your health care provider about ways to manage your pain that don?t involve prescription opioids. Some of these options may actually work better and have fewer risks and side effects. Options may include: ? Pain relievers such as acetaminophen, ibuprofen, and naproxen ? Some medication that are also used for depression or seizures ? Physical therapy and exercise ? Cognitive behavioral therapy, a psychological, goal-directed approach, in which patients learn how to modify physical, behavioral, and emotional triggers of pain and stress. IF YOU ARE PRESCRIBED OPIOIDS FOR PAIN: ? Never take opioids in greater amounts or more often than prescribed. ? Follow up with your primary health care provider. o Work together to create a plan on how to manage your pain. o Talk about ways to help manage your pain that don?t involve prescription opioids. o Talk about any and all concerns and side effects. ? Help prevent misuse and abuse o Never sell or share prescription opioids. o Never use another person?s prescription opioids. ? Store prescription opioids in a secure place and out of reach of others (this may include visitors, children, friends, and family). ? Safely dispose of unused prescription opioids: Find your community drug take-back program or your pharmacy mail-back program, or flush them down the toilet, following guidance from the Food and Drug Administration (www.fda.gov/Drugs/Resour cesForYou). (more content not included)... Normal [facility] Influenza A&B Agon Influenzae A Ag Negative Normal Negative [facility] Comment on above: Performed By: #### [id number] ####[facility] [address] [place] [address] Influenzae B Ag Negative Normal Negative [facility] Comment on above: Result Comment: Test sensitivity and specificity vary for age group, specimen type, antigen types, and prevalence of disease. Test results must be evaluated in conjunction with other clinical data available to the physician. Individuals who received nasally administered Influenza A vaccine may have positive test results up to 3 days after vaccination. Performed By: #### [id number] ####[facility] [id number] [place] [address] MICRO OTHER TESTSOrdered By: Clementine Fried on 01-20-2024 Influenzae A Ag Negative (01/20/24 11:32 AM) Normal Negative [facility] [place] Man Sero Influenzae B Ag Negative 1 (01/20/24 11:32 AM) Normal Negative [facility] Man Sero Comment on above: Interpretive Data: T est sensitivity and specificity vary for age group, specimen type, antigen types, and prevalence of disease. Test results must be evaluated in conjunction with other clinical data available to the physician. Individuals who received nasally administered Influenza A vaccine may have positive test results up to [address] Hearton 01-14-2024 These images are not reportable by radiology and will not be interpreted by Radiologists. IMAGING CTA Heart and Coronary arter ies WO and W contrast Andrea 01-14-2024 Addendum by Adelita Cheema MD on 01/14/2024 11:43 AM EST Interpreted By: Charissa Gunn, ADDENDUM: Technical: The following is to serve as an over-read for a contrast-enhanced cardiac CT, to evaluate the extra vascular structures. Contiguous axial CT sections are performed from the level of the darrick to the upper abdomen following the bolus administration of 75 cc of intravenous Omnipaque 350. Findings: There is linear atelectasis in the lung bases greater in the right lower lobe at the lateral costophrenic angle. Linear atelectasis also identified in the right upper lobe posteriorly and inferiorly. There is faint bibasilar ground-glass density greater on the left which could reflect mild congestion. There is no sign of pathologic lymph node enlargement. There is no pericardial or pleural effusion. Images through the upper abdomen are unremarkable. The visualized osseous and soft tissue structures of the chest wall are intact. Impression: Linear atelectasis in the right lung. Subtle ground-glass density greater in the left lung base is nonspecific and could reflect mild congestion. The extra vascular structures are otherwise unremarkable. Signed by: Charissa Gunn 01/14/2024 11:43 AM -------- ORIGINAL REPORT -------- Dictation workstation: [id number] [facility] Work Phone: 1. Mid dominant righ t coronary artery calcified plaque with 50% stenosis. Distal noncalcified plaque with 50% stenosis. Mid FFR 0.86, distal FFR 0.81 (hemodynamically nonsignificant). 2. Mid Left circumflex calcified plaque with 50% stenosis. Mid FFR 0.88 (hemodynamically nonsignificant). 3. Mild diffuse CAD of remaining coronary arteries without significant stenosis. 4. No hemodynamic significant stenosis of major epicardial coronary arteries by FFR assessment. 5. Coronary artery calcium score 59, 98th percentile for age, gender, and race in asymptomatic patients. Reading Welt Insole Channeler: Dr. Charissa Stokes, Date: 01/14/2024 11:08 am Signed by: Charissa Stokes 01/14/2024 11:15 AM Dictation workstation: [id number] Interpreted By: Charissa Herrera, STUDY: CT ANGIO CORONARY ART WITH HEARTFLOW IF SCORE >30%; 01/14/2024 9:41 am INDICATION: Signs/Symptoms:CP, SOB,. COMPARISON: None. ACCESSION NUMBER(S): [id number] ORDERING CLINICIAN: RAMIRO BHANDARI TECHNIQUE: Using multi-detector CT technology, Marc 64-slice scanner, axial, sequential imaging with retrospective gating was performed of the chest following the intravenous administration of contrast material. A low-osmolar contrast agent was used 75 ml of Omnipaque 350. Using prospective ECG gating, CT scan of the coronary arteries was performed without intravenous contrast. Coronary calcium scoring was performed according to the method of Agatston. In addition, CT-FFR analysis was also performed. CT925 The patient was premedicated with atenolol and 0.4 mg sublingual nitroglycerin per protocol for heart rate control and coronary dilation, respectively. For optimization of anatomic evaluation, multiplanar reconstruction, maximum intensity projections, and advanced 3-D off-line postprocessing were performed on a dedicated stand-alone workstation under the direct supervision of the interpreting physician. Independent FFR analysis of Heartflow 3D model was performed by interpreting physician. CT Dose-Length Product (DLP): 1086.7 mGy/cm CT Dose Reduction Employed: Yes iterative reconstruction FINDINGS: The left main is normal sized vessel that bifurcates into the LAD and circumflex. There is no significant atherosclerotic change or stenotic disease. LEFT ANTERIOR DESCENDING ARTERY: The LAD is a normal size vessel that wraps around the apex. Proximal calcified plaque without significant stenosis. Mid vessel noncalcified plaque without significant stenosis. LAD gives rise to 2 acute diagonal branches. D1: Small, noncalcified plaque without significant stenosis. D2: Proximal noncalcified plaque without significant stenosis. LEFT CIRCUMFLEX ARTERY: The LCfx is a normal size vessel, which is non-dominant. Proximal noncalcified plaque without significant stenosis. Mid vessel calcified plaque with 50% stenosis. Mid FFR 0.88 (hemodynamically nonsignificant). LCfx gives rise to 1 obtuse marginal branches. OM1 noncalcified plaque without significant stenosis. RIGHT CORONARY ARTERY: The RCA is a normal size vessel, which is dominant . It gives rise to a conus branch, moose branch, and 2 acute marginal branches. In its distal segment it bifurcates into the PDA and PV branch. Proximal noncalcified plaque without significant stenosis. Mid vessel calcified plaque with 50% stenosis. Distal noncalcified plaque with 50% stenosis. Mid FFR 0.86, distal FFR 0.81 (hemodynamically nonsignificant). Right PDA proximal noncalcified plaque without significant stenosis. Right PLV small, noncalcified plaque without significant stenosis. Coronary artery calcium score 59, 98th percentile for age, gender, and race in asymptomatic patients. CARDIAC CHAMBERS: The cardiac chambers demonstrate normal atrioventricular and ventriculoarterial concordance, and systemic and pulmonary venous return. LEFT VENTRICLE: Normal size End diastolic volume 170 ml, 85 ml/m2 LEFT VENTRICLE MASS: 152 gm, 76 gm/m2 RIGHT VENTRICLE: Normal size End diastolic volume 181 ml, 91 ml/m2 LEFT ATRIUM: Normal size End systolic volume 107 ml, 54 ml/m2 RIGHT ATRIUM: Normal size End systolic volume 120 ml, 60 ml/m2 INTERATRIAL SEPTUM: Intact. AORTIC VALVE: The aortic valve is trileaflet in morphology. No calcifications. MITRAL VALVE: No thickening/calcification. THORACIC AORTA: The visualized thoracic aorta is normal in course, caliber, and contour. There is no acute aortic pathology, such as dissection, intramural hematoma, or contained rupture. The aortic arch is not included on this examination. PERICARDIUM: There is no pericardial effusion of thickening. FRACTIONAL FLOW RESERVE LEFT ANTERIOR DESCENDING: Proximal 0.97, mid 0.91, distal 0.8 D2: Proximal 0.92 LEFT CIRCUMFLEX: Proximal 0.97, mid 0.88 RIGHT CORONARY ARTERY: Proximal 0.95, mid 0.86, distal 0.81 PDA: Proximal 0.77 [facility] Charissa Stokes D O / Adelita Gunn MD - 01/14/2024 Interpreted By: Charissa Stokes, STUDY: CT ANGIO CORONARY ART WITH HEARTFLOW IF SCORE >30%; 01/14/2024 9:41 am INDICATION: Signs/Symptoms:CP, SOB,. COMPARISON: None. ACCESSION NUMBER(S): [id number] ORDERING CLINICIAN: RAMIRO BHANDARI TECHNIQUE: Using multi-detector CT technology, Marc 64-slice scanner, axial, sequential imaging with retrospective gating was performed of the chest following the intravenous administration of contrast material. A low-osmolar contrast agent was used 75 ml of Omnipaque 350. Using prospective ECG gating, CT scan of the coronary arteries was performed without intravenous contrast. Coronary calcium scoring was performed according to the method of Agatston. In addition, CT-FFR analysis was also performed. CT925 The patient was premedicated with atenolol and 0.4 mg sublingual nitroglycerin per protocol for heart rate control and coronary dilation, respectively. For optimization of anatomic evaluation, multiplanar reconstruction, maximum intensity projections, and advanced 3-D off-line postprocessing were performed on a dedicated stand-alone workstation under the direct supervision of the interpreting physician. Independent FFR analysis of Heartflow 3D model was performed by interpreting physician. CT Dose-Length Product (DLP): 1086.7 mGy/cm CT Dose Reduction Employed: Yes iterative reconstruction FINDINGS: The left main is normal sized vessel that bifurcates into the LAD and circumflex. There is no significant atherosclerotic change or stenotic disease. LEFT ANTERIOR DESCENDING ARTERY: The LAD is a normal size vessel that wraps around the apex. Proximal calcified plaque without significant stenosis. Mid vessel noncalcified plaque without significant stenosis. LAD gives rise to 2 acute diagonal branches. D1: Small, noncalcified plaque without significant stenosis. D2: Proximal noncalcified plaque without significant stenosis. LEFT CIRCUMFLEX ARTERY: The LCfx is a normal size vessel, which is non-dominant. Proximal noncalcified plaque without significant stenosis. Mid vessel calcified plaque with 50% stenosis. Mid FFR 0.88 (hemodynamically nonsignificant). LCfx gives rise to 1 obtuse marginal branches. OM1 noncalcified plaque without significant stenosis. RIGHT CORONARY ARTERY: The RCA is a normal size vessel, which is dominant . It gives rise to a conus branch, moose branch, and 2 acute marginal branches. In its distal segment it bifurcates into the PDA and PV branch. Proximal noncalcified plaque without significant stenosis. Mid vessel calcified plaque with 50% stenosis. Distal noncalcified plaque with 50% stenosis. Mid FFR 0.86, distal FFR 0.81 (hemodynamically nonsignificant). Right PDA proximal noncalcified plaque without significant stenosis. Right PLV small, noncalcified plaque without significant stenosis. Coronary artery calcium score 59, 98th percentile for age, gender, and race in asymptomatic patients. CARDIAC CHAMBERS: The cardiac chambers demonstrate normal atrioventricular and ventriculoarterial concordance, and systemic and pulmonary venous return. LEFT VENTRICLE: Normal size End diastolic volume 170 ml, 85 ml/m2 LEFT VENTRICLE MASS: 152 gm, 76 gm/m2 RIGHT VENTRICLE: Normal size End diastolic volume 181 ml, 91 ml/m2 LEFT ATRIUM: Normal size End systolic volume 107 ml, 54 ml/m2 RIGHT ATRIUM: Normal size End systolic volume 120 ml, 60 ml/m2 INTERATRIAL SEPTUM: Intact. AORTIC VALVE: The aortic valve is trileaflet in morphology. No calcifications. MITRAL VALVE: No thickening/calcification. THORACIC AORTA: The visualized thoracic aorta is normal in course, caliber, and contour. There is no acute aortic pathology, such as dissection, intramural hematoma, or contained rupture. The aortic arch is not included on this examination. PERICARDIUM: There is no pericardial effusion of thickening. FRACTIONAL FLOW RESERVE LEFT ANTERIOR DESCENDING: Proximal 0.97, mid 0.91, distal 0.8 D2: Proximal 0.92 LEFT CIRCUMFLEX: Proximal 0.97, mid 0.88 RIGHT CORONARY ARTERY: Proximal 0.95, mid 0.86, distal 0.81 PDA: Proximal 0.77 IMPRESSION: 1. Mid dominant right coronary artery calcified plaque with 50% stenosis. Distal noncalcified plaque with 50% stenosis. Mid FFR 0.86, distal FFR 0.81 (hemodynamically nonsignificant). 2. Mid Left circumflex calcified plaque with 50% stenosis. Mid FFR 0.88 (hemodynamically nonsignificant). 3. Mild diffuse CAD of remaining coronary arteries without significant stenosis. 4. No hemodynamic significant stenosis of major epicardial coronary arteries by FFR assessment. 5. Coronary artery calcium score 59, 98th percentile for age, gender, and r (more content not included)... [facility] Work Phone: Radiology Study observation (narrative) [facility] Work Phone: CTA Heart and Coronary arter ies WO and W contrast IVOrdered By: Adelita Gunn on 01-14-2024 [facility] Work Phone: No Panel Informationon 01-12 [facility].doppler Carotid arteries - bilateralon 12-22-[address], [address], [place] [address] Vascular Lab Report [facility] US CAROTID ARTERY DUPLEX BILATERAL Patient Name: HIEN LAM Reading Physician: [id number] Maury Caruso MD, [facility] Study Date: 12/22/2023 Ordering Provider: [id number] RAMIRO RodriguezMARTINEZ MRN/PID: [id number] Fellow: Technologist: Teresa Armijo RDCS, T Date of /Age: 11 1975 / 48 years Technologist 2: Gender: F Admission Status: Outpatient Location Performed: [facility] Diagnosis/ICD: Essential primary hypertension-I10; Other specified symptoms and signs involving the circulatory and respiratory systems-R09.89 Indication: Right Carotid Bruit, Hyperlipidemia, Diabetes, Tobacco Abuse, MCCALLUM, Peripheral Artery Disease, Loop Recorder Implant, Nonsustained Ventricular Tachycardia, Obesity, Left Iliac Artery Disease, Arnold-Chiari Syndrome, [place]'s Disease, COPD, АННА, Marijuana Use CPT Codes: 01642 Cerebrovascular Carotid Duplex scan complete CONCLUSIONS: Right Carotid: Findings are consistent with 50 to 69% stenosis of the right proximal internal carotid artery. Laminar flow seen by color Doppler. There are elevated velocities in the right ECA that are suggestive of disease. No evidence of hemodynamically significant stenosis of the right common carotid artery. The right vertebral artery is patent with antegrade flow. Left Carotid: Findings are consistent with 50 to 69% stenosis of the left proximal internal carotid artery. Laminar flow seen by color Doppler. Left external carotid artery appears patent with no evidence of stenosis. No evidence of hemodynamically significant stenosis of the left common carotid artery. The left vertebral artery is patent with antegrade flow. Imaging & Doppler Findings: Right Plaque Morph: The proximal right internal carotid artery demonstrates irregular plaque. The mid right internal carotid artery demonstrates irregular plaque. The distal right internal carotid artery demonstrates irregular plaque. The distal right common carotid artery demonstrates irregular plaque. Left Plaque Morph: The proximal left internal carotid artery demonstrates irregular and calcified plaque. The mid left internal carotid artery demonstrates irregular and calcified plaque. Right Left PSV EDV PSV EDV 103 cm/s 23 cm/s CCA P 106 cm/s 21 cm/s 116 cm/s 25 cm/s CCA M 70 cm/s 21 cm/s 104 cm/s 29 cm/s CCA D 85 cm/s 26 cm/s 154 cm/s 46 cm/s ICA P 131 cm/s 43 cm/s 181 cm/s 52 cm/s ICA M 153 cm/s 46 cm/s 145 cm/s 39 cm/s ICA D 185 cm/s 60 cm/s 219 cm/s ECA 80 cm/s 79 cm/s Vertebral 79 cm/s Right Left ICA/CCA Ratio 1.5 1.5 [id number] Maury Caruso MD, FACC Final Maury Leyva M D - 12/22/[address], [address] [place] [address] Vascular Lab Report [facility] US CAROTID ARTERY DUPLEX BILATERAL Patient Name: HIEN Whitmore Physician: [id number] Maury Caruso MD, FACC Study Date: 12/22/2023 Ordering Provider: [id number] RAMIRO BHANDARI MRN/PID: [id number] Fellow: Technologist: Teresa Armijo RDCS Jonathan Date of /Age: 11 1975 / 48 years Technologist 2: Gender: F Admission Status: Outpatient Location Performed: [facility] Diagnosis/ICD: Essential primary hypertension-I10; Other specified symptoms and signs involving the circulatory and respiratory systems-R09.89 Indication: Right Carotid Bruit, Hyperlipidemia, Diabetes, Tobacco Abuse, MCCALLUM, Peripheral Artery Disease, Loop Recorder Implant, Nonsustained Ventricular Tachycardia, Obesity, Left Iliac Artery Disease, Arnold-Chiari Syndrome, Mario's Disease, COPD, АННА, Marijuana Use CPT Codes: 00909 Cerebrovascular Carotid Duplex scan complete CONCLUSIONS: Right Carotid: Findings are consistent with 50 to 69% stenosis of the right proximal internal carotid artery. Laminar flow seen by color Doppler. There are elevated velocities in the right ECA that are suggestive of disease. No evidence of hemodynamically significant stenosis of the right common carotid artery. The right vertebral artery is patent with antegrade flow. Left Carotid: Findings are consistent with 50 to 69% stenosis of the left proximal internal carotid artery. Laminar flow seen by color Doppler. Left external carotid artery appears patent with no evidence of stenosis. No evidence of hemodynamically significant stenosis of the left common carotid artery. The left vertebral artery is patent with antegrade flow. Imaging & Doppler Findings: Right Plaque Morph: The proximal right internal carotid artery demonstrates irregular plaque. The mid right internal carotid artery demonstrates irregular plaque. The distal right internal carotid artery demonstrates irregular plaque. The distal right common carotid artery demonstrates irregular plaque. Left Plaque Morph: The proximal left internal carotid artery demonstrates irregular and calcified plaque. The mid left internal carotid artery demonstrates irregular and calcified plaque. Right Left PSV EDV PSV EDV 103 cm/s 23 cm/s CCA P 106 cm/s 21 cm/s 116 cm/s 25 cm/s CCA M 70 cm/s 21 cm/s 104 cm/s 29 cm/s CCA D 85 cm/s 26 cm/s 154 cm/s 46 cm/s ICA P 131 cm/s 43 cm/s 181 cm/s 52 cm/s ICA M 153 cm/s 46 cm/s 145 cm/s 39 cm/s ICA D 185 cm/s 60 cm/s 219 cm/s ECA 80 cm/s 79 cm/s Vertebral 79 cm/s Right Left ICA/CCA Ratio 1.5 1.5 [id number] Maury Caruso MD, FACC Final [facility] Work Phone: Radiology Study observation (narrative) [facility] Work Phone: US.doppler Carotid arteries - bilateralOrdered By: Maury Caruso on 12-22-2023 [facility] Work Phone: Basic metabolic 2000 panelon 12-10-2023 Anion gap [Moles/Vol] 16 mmol/L 10 - 2 0 mmol/L [facility] Calcium [Mass/Vol] 9.0 mg/dL 8.6 - 10. 3 mg/dL [facility] Chloride [Moles/Vol] 107 mmol/L 98 - 10 7 mmol/L [facility] CO2 [Moles/Vol] 21 mmol/L 21 - 32 mmol/L [facility] Creatinine [Mass/Vol] 0.79 mg/dL 0.50 - 1.05 mg/dL [facility] eGFR - PINF [facility] Comment on above: Calculations of cristian mated GFR are performed using the 2020 CKD-EPI Study Refit equation without the race variable for the IDMS-Traceable creatinine methods. https://jasn.asnjournals.org/content//ASN.217348 6958 Glucose [Mass/Vol] 126 mg/dL High 74 - 99 mg/dL [facility] Interpretation and review of laboratory results Abnormal [facility] Potassium [Moles/Vol] 3.8 mmol/L 3.5 - 5.3 mmol/L [facility] Sodium [Moles/Vol] 140 mmol/L 136 - 145 mmol/L [facility] Urea nitrogen [Mass/Vol] 15 mg/dL 6 - 23 mg/dL [facility] CBC panel Auto (Bld)on 12-10 Erythrocyte distribution width (RBC) [Ratio] 13.4 % 11.5 - 14.5 % [facility] Hematocrit (Bld) [Volume fraction] 43.9 % 36.0 - 46.0 % [facility] Hemoglobin (Bld) [Mass/Vol] 15.3 g/dL 12.0 - 16.0 g/dL [facility] Interpretation and review of laboratory results Abnormal [facility] MCH (RBC) [Entitic mass] 35.1 pg High 26.0 - 34.0 pg [facility] MCHC (RBC) [Mass/Vol] 34.9 g/dL 32.0 - 36.0 g/dL [facility] MCV (RBC) [Entitic vol] 101 fL High 80 - 100 fL [facility] Nucleated RBC/100 WBC (Bld) [Ratio] 0.0 % [facility] Platelets (Bld) [#/Vol] 244 10*3/uL [facility] RBC (Bld) [#/Vol] 4.36 10*6/uL [facility] WBC (Bld) [#/Vol] 11.3 10*3/uL [facility] ECG 12-LEADon 12-10-2023 ECG 12-LEAD Ventricular Rate 53 Atrial Rate 53 P-R Interval 136 QRS Duration 88 Q-T Interval 430 QTC Calculation(Bazett) 403 P [place] 57 R [place] 53 T [place] 31 QRS Count 9 Q Onset 218 P Onset 150 P Offset 202 T Offset 433 QTC Fredericia 412 Diagnosis Sinus bradycardia Cannot rule out Anterior infarct , age undetermined Abnormal ECG When compared with ECG of 30-NOV-2023 12:59, No significant change was found Confirmed by Tanner Arnold ([id number]) on 12/10/2023 3:24:53 PM Normal [facility] Electrophysiology studyon [facility] Work Phone: PT and aPTT panel Coag (PPP) on 12-10-2023 aPTT Coag (PPP) [Time] 32 s [facility] INR Coag (PPP) [Relative time] 1.1 {INR} 0.9 - 1.1 [facility] Interpretation and review of laboratory results Normal [facility] PT Coag (PPP) [Time] 12.1 s [facility] The APTT is no longe r used for monitoring Unfractionated Heparin Therapy. For monitoring Heparin Therapy, use the Heparin Assay. [facility] ECG 12 LeadOrdered By: Tanner Padron on 12-01-2023 Atrial Rate 55 BPM [facility] Work Phone: [phone] P [place] 49 degrees [facility] Work Phone: P Offset 208 ms [facility] Work Phone: P Onset 157 ms [facility] Work Phone: DC Interval 126 ms [facility] Work Phone: Q Onset 220 ms [facility] Work Phone: QRS Count 9 beats [facility] Work Phone: QRS Duration 82 ms [facility] Work Phone: QT Interval 438 ms [facility] Work Phone: QTC Calculation(Bazett) 419 ms [facility] Work Phone: [phone] QTC Fredericia 425 ms [facility] Work Phone: [phone] R [place] 66 degrees [facility] Work Phone: [phone] T [place] 35 degrees [facility] Work Phone: [phone] T Offset 439 ms [facility] Work Phone: [phone] Ventricular Rate 55 BPM [facility] Work [facility]: [phone] [facility] Work Phone: [phone] ECG 12 Leadon 12-01-2023 Sinus bradycardia Otherwise normal ECG When compared with ECG of 30-NOV-2023 12:58, (unconfirmed) ST no longer depressed in Lateral leads Confirmed by Joshua Padron ([id number]) on 12/01/2023 5:05:56 PM MUSE Joshua Padron MD - 12/01/2023 Sinus bradycardia Otherwise normal ECG When compared with ECG of 30-NOV-2023 12:58, (unconfirmed) ST no longer depressed in Lateral leads Confirmed by Joshua Padron ([id number]) on 12/01/2023 5:05:56 PM [facility] Work Phone: ECG 12-LEADon 11-30-2023 ECG 12-LEAD Ventricular Rate 55 Atrial Rate 55 P-R Interval 126 QRS Duration 82 Q-T Interval 438 QTC Calculation(Bazett) 419 P Marietta 49 R Marietta 66 T [place] 35 QRS Count 9 Q Onset 220 P Onset 157 P Offset 208 T Offset 439 QTC Fredericia 425 Diagnosis Sinus bradycardia Otherwise normal ECG When compared with ECG of 30-NOV-2023 12:58, (unconfirmed) ST no longer depressed in Lateral leads Confirmed by Joshua Padron ([id number]) on 12/01/2023 5:05:56 PM Normal [facility] L Inj/Asp: L kneeon 11-25-19 Luis Armando Schwab MD 11/25/2023 12:09 PM L Inj/Asp: L knee on 11/25/2023 11:01 AM Indications: pain Details: 22 G needle, anterolateral approach Medications: 2 mL lidocaine 20 mg/mL (2 %); 2.5 mg triamcinolone acetonide 40 mg/mL Outcome: tolerated well, no immediate complications Procedure, treatment alternatives, risks and benefits explained, specific risks discussed. Consent was given by the patient. Immediately prior to procedure a time out was called to verify the correct patient, procedure, equipment, sales support engineer and site/side marked as required. Patient was prepped and draped in the usual sterile fashion. [facility] Work Phone: [facility] Work Phone: Study Interpretation of outs rhianna studyon 11-23-2023 Outside images for comparison or treatment purposes, not interpreted by Radiologists. IMAGING Discharge Instructionson Discharge Instructions [id number]:1 27 [facility] ED Note-Physicianon 08-03-20 ED Note-Physician Basic Information Time Seen: Luz HERNANDEZ Buckjordan Rivero 08/02/2023 22:04 Chief Complaint Pt arrives to ed with c/o left knee pain due to a fall. History of Present Illness Patient is a 47-year-old female with past medical history of depression, Mario's disease, hypertension, COPD presenting to the ED for evaluation of left knee pain. Patient states she was walking when she tripped over her dog fell landing directly on the left knee. Patient states she does have chronic pain in this knee and needs to get a replacement done however did have a large amount of weight loss recently Dr. Seth would like her to get skin removal surgery done first. Patient denies hitting her head, loss of consciousness, any other complaints. Review of Systems A 10 point review of systems is negative except as noted above. Medical and Surgical History: Reviewed and noted Social history: Lives at home Tobacco: Denies Physical Exam Vitals & Measurements T: 36.6 ?C(Oral) HR: 63(Peripheral) RR: 16 BP: 126/78 SpO2: 96% HT: 165.10 cm WT: 95 kg BMI: 34.85 General: Well developed, non toxic appearing, no acute distress HEENT: Head atraumatic, Mucosa moist, hearing grossly normal Neck: No JVD, tracheal deviation Cardiac: Regular rate, rhythm, no murmurs, or gallops, 2+ radial pulses Respiratory: Lungs clear to auscultation B/L, normal respiratory effort Extremities: Region tenderness palpation of the left knee, no obvious deformities noted Neurologic: Alert and oriented, speech clear Skin: No rashes or lesions Psych: Appropriate mood and behavior Medical Decision Making MEDICAL DECISION MAKING Number and Complexity of Problems Differential Diagnosis: [] [facility] Data External documents reviewed: [] My EKG interpretation: [] My CT interpretation: [] My X-ray interpretation: [] My Ultrasound interpretation: [] Decision rules/scores evaluated: [] Discussed with: [] Treatment and Disposition ED Course: [Patient is a 47-year-old female presenting to the ED for evaluation of left knee pain after a fall. Patient is nontoxic and on arrival, no acute distress. Patient does have an abrasion noted to her left knee. X-rays obtained which shows no acute fracture or dislocation. Patient given pain medication in the ED and discharged home with short course of pain medication. She is placed in Ryely wrap for comfort. Follow-up with her primary care doctor in the next 2 to 3 days. Is to follow-up with Dr. Seth for further evaluation management. Shared decision making: [] Code status: [] Assessment/Plan Knee contusion (S80.00XA: Contusion of unspecified knee, initial encounter) Orders: acetaminophen-hydrocodone , 1 EA, Tab, Oral, Once, Stop date 08/02/23 23:05:00 EDT, STAT, Start date 08/02/23 23:05:00 EDT acetaminophen-hydrocodone , 1 tab(s), Tab, Oral, Once, Stop date 08/02/23 22:32:00 EDT, STAT, Start date 08/02/23 22:32:00 EDT naproxen, 500 mg = 1 tab(s), Oral, BID, PRN for pain, # 20 tab(s), Refills(s) 0, Pharmacy: [facility]/pharmacy #[id number], 165.1, cm, 08/02/23 21:59:00 EDT, Height/Length Dosing, 95, kg, 08/02/23 21:59:00 EDT, Weight Dosing Ryley Wrap XR Knee Complete 4+ Views Left Medications Administered Given [place] 5/325 Tab, 1 tab(s), Oral TO GO acetaminophen-hydrocodone 325 mg - 5 mg, 1 EA, Oral Disposition Plan Discharge Prescription List Prescriptions Naprosyn 500 mg Tab, 500 mg= 1 tab(s), Oral, BID, PRN Follow-up With When Contact Information Charissa Seth In 3 days 08/05/2023 EDT [address] [place] [address]- Business (1) Additional Instructions: Mindy Morgan In 3 days 08/05/2023 EDT [address] [place] [address]- Business (1) Additional Instructions: You can use the pain medication as prescribed as needed for pain. Please follow-up with your primary care doctor in addition to orthopedics for further evaluation management. Please return to the ED for any new or worsening symptoms. 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 Medications Inpatient No active inpatient medications Home albuterol 0.083% Inh Tiffanie 3 mL, 2.5 mg= 3 mL, Inhalation, q6hr albutero (more content not included)... Normal [facility] Comment on above: Result Comment: Elec tronically Signed By: Tarah Escobar DO\.br\Date and Time Signed: 08/03/23 03:19 EDT XR Knee Complete 4+ Views Le fton 08-03-2023 XR Knee Complete 4+ Views Left Exam Date/Time: 08/02/2023 22:42 EDT Reason for Exam: Pain, Traumatic Report IMPRESSION: NO DISPLACED FRACTURE OR SIGNIFICANT POSTTRAUMATIC COMPLICATION IDENTIFIED. EXAM: XR Knee Complete 4+ Views Left DATE: 08/02/2023 CLINICAL HISTORY: Pain, Traumatic. COMPARISON: 03/27/2021 TECHNIQUE: AP, lateral, internal and external oblique radiographs of the left knee were obtained. FINDINGS: There is no fracture, significant joint effusion, dislocation, radiodense foreign bodies, or other posttraumatic complication identified. Moderate tricompartmental osteoarthrosis and calcified loose bodies are again noted. Ordering Provider: Tarah Escobar FINAL REPORT Dictated: 08/03/2023 8:37 am Garcia Aguilera MD Signed (Electronic Signature): 08/03/2023 8:37 am Signed by: Garcia Aguilera MD Transcribed by: DIAMANTE Technologist: BRINDA Technical Comments Radiation Dose: Ka,r in mGy = na DAP = na Normal [facility] Consent for Treatmenton 07-10 Consent for Treatment [id number]:12 7 Normal [facility] ED Clinical Summaryon 2022 ED Clinical Summary (Inserted Image. Farheen ble to display) [place] [address] ED Clinical Summary Person Information Name: HIEN LAM [facility] Age: 47 Years : 1975 Sex: Female Language: Gabonese PCP: Mindy Morgan MD Marital Status: Single Phone: [phone] Visit Id: Visit Reason: Knee injury - Minor; KNEE PAIN Speciality: Acuity: 3 Enc Type: Emergency Med Service: Emergency Arrival: 08/02/2023 21:50:15 Discharge: 08/02/2023 23:20:38 LOS: 000 01:30 Checkin: 08/02/2023 21:50:15 Checkout: 08/02/2023 23:20:38 Dispo Type: Home (Routine DC) EVENTS: Event Name Event Status Request Date/Time Start Date/Time Complete Date/Time Arrive Complete 08/02/2023 21:50:15 08/02/2023 21:50:15 08/02/2023 21:50:15 Document Home Meds Request 08/02/2023 21:50:15 Triage Complete 08/02/2023 21:50:15 08/02/2023 21:59:20 08/02/2023 21:59:20 Registration Complete 08/02/2023 21:54:32 08/02/2023 21:54:32 08/02/2023 21:54:32 Reg Complete Request 08/02/2023 21:54:32 Reg Bed Request Complete 08/02/2023 21:54:32 08/02/2023 21:54:32 08/02/2023 21:54:32 Isolation Screening Request 08/02/2023 21:59:20 Bed Assign Complete 08/02/2023 21:59:28 08/02/2023 21:59:28 08/02/2023 21:59:28 Dr Exam Complete 08/02/2023 21:59:28 08/02/2023 22:04:31 08/02/2023 22:04:31 RN Exam Complete 08/02/2023 21:59:28 08/02/2023 22:30:58 08/02/2023 22:30:58 Registration Request 08/02/2023 22:04:31 X-Ray Complete 08/02/2023 22:12:38 08/02/2023 22:28:55 08/02/2023 22:42:46 Meds Admin Complete 08/02/2023 22:32:25 08/02/2023 22:41:04 Wet Read Request 08/02/2023 22:42:46 Meds Admin Complete 08/02/2023 23:05:35 08/02/2023 23:18:59 Patient Care Complete 08/02/2023 23:06:02 08/02/2023 23:19:45 Discharge Complete 08/02/2023 23:07:48 08/02/2023 23:20:43 08/02/2023 23:20:43 Transfer Complete 08/02/2023 23:20:43 08/02/2023 23:20:43 08/02/2023 23:20:43 ADDRESS: [address] [place] [phone] PHYS DOC NOTES: MEDICAL INFORMATION: Prescriptions Given: Medications to Continue Taking That Have Changed [facility]/pharmacy #[id number], [address] [place] [phone], [phone] START: naproxen (Naprosyn 500 mg Tab) 1 Tablets By Mouth 2 times a day as needed for pain. Refills: 0. Other Medications START: naproxen (Naprosyn 500 mg Tab) 1 Tablets By Mouth 2 times a day. Refills: 0. Medications to Continue with No Changes Other Medications albuterol (albuterol 0.083% Inh Tiffanie 3 mL) 3 Milliliter Inhalation every 6 hours. Q6H and PRN. albuterol (albuterol CFC free 90 mcg/inh Inh Aer w/Adapt 8 gm (Ventolin)) 2 Puffs Inhalation 4 times a day. Refills: 0. aspirin (aspirin 81 mg Oral EC Tab) 1 Tablets By Mouth every day. atorvastatin (Lipitor 20 mg Tab) 2 Tablets By Mouth every day. 40 mg. cephalexin (cephalexin 500 mg Cap) 1 Capsules By Mouth 4 times a day. Refills: 0. ergocalciferol (Vitamin D2 2000 intl units oral capsule) ertugliflozin (Steglatro 15 mg oral tablet) fenofibrate (fenofibrate 145 mg Tab) 1 Tablets By Mouth every day. gabapentin (gabapentin 800 mg Tab) 1 Tablets By Mouth 4 times a day. ibuprofen (ibuprofen 600 mg Tab) 1 Tablets By Mouth every 6 hours as needed as needed for pain. Refills: 0. insulin isophane-insulin regular (NovoLIN 70/30 FlexPen subcutaneous suspension) lisinopril (lisinopril 5 mg Tab) 1 Tablets By Mouth every day. mifepristone (Korlym 300 mg oral tablet) 1 Tablets By Mouth every day. mupirocin topical (mupirocin Top 2% Oint) 1 Application Topical 3 times a day. Refills: 0. mupirocin topical (mupirocin Top 2% Oint) 1 Application Topical 3 times a day. Refills: 0. pantoprazole (Protonix 40 mg Tab-DR) 1 Tablets By Mouth every day. spironolactone (spironolactone 25 mg Tab) tiotropium (Spiriva Respimat 28 ACT 2.5 mcg/inh inhalation aerosol) topiramate (Topamax 200 mg Tab) 1 Tablets By Mouth 2 times a day. valacyclovir (Valtrex) 500 Milligram By Mouth every day. PATIENT EDUCATION INFORMATION: Instructions: Acute Knee Pain, Adult, Omzo-sy-Jmzg Follow up: With: Address: When: Charissa Seth [address] [place] [phone] Business (1) In 3 days 08/05/2023 With: Address: When: Mindy Morgan [address] [facility], [address] [place] [phone] [facility] (1) In 3 days 08/05/2023 Comments: You can use the pain medication as prescribed as needed for pain. Please follow-up with your primary care doctor in addition to orthopedics for further evaluation management. Please return to the ED for any new or worsening symptoms. DIAGNOSIS: Knee contusion Normal [facility] ED Patient Education Noteon 08-02-2023 ED Patient Education Note Orthopedics Acute Knee Pain, Adult Many things can cause knee pain. Sometimes, knee pain is sudden (acute) and may be caused by damage, swelling, or irritation of the muscles and tissues that support your knee. The pain often goes away on its own with time and rest. If the pain does not go away, tests may be done to find out what is causing the pain. Follow these instructions at home: If you have a knee sleeve or brace: ? Wear the knee sleeve or brace as told by your doctor. Take it off only as told by your doctor. ? Loosen it if your toes: ? Tingle. ? Become numb. ? Turn cold and blue. ? Keep it clean. ? If the knee sleeve or brace is not waterproof: ? Do not let it get wet. ? Cover it with a watertight covering when you take a bath or shower. Activity ? Rest your knee. ? Do not do things that cause pain or make pain worse. ? Avoid activities where both feet leave the ground at the same time (high-impact activities). Examples are running, jumping rope, and doing jumping jacks. ? Work with a physical therapist to make a safe exercise program, as told by your doctor. Managing pain, stiffness, and swelling ? If told, put ice on the knee. To do this: ? If you have a removable knee sleeve or brace, take it off as told by your doctor. ? Put ice in a plastic bag. ? Place a towel between your skin and the bag. ? Leave the ice on for 20 minutes, 2?3 times a day. ? Take off the ice if your skin turns bright red. This is very important. If you cannot feel pain, heat, or cold, you have a greater risk of damage to the area. ? If told, use an elastic bandage to put pressure (compression) on your injured knee. ? Raise your knee above the level of your heart while you are sitting or lying down. ? Sleep with a pillow under your knee. General instructions ? Take qjvo-oxq-rgqxcov and prescription medicines only as told by your doctor. ? Do not smoke or use any products that contain nicotine or tobacco. If you need help quitting, ask your doctor. ? If you are overweight, work with your doctor and a food expert (dietitian) to set goals to lose weight. Being overweight can make your knee hurt more. ? Watch for any changes in your symptoms. ? Keep all follow-up visits. Contact a doctor if: ? The knee pain does not stop. ? The knee pain changes or gets worse. ? You have a fever along with knee pain. ? Your knee is red or feels warm when you touch it. ? Your knee gives out or locks up. Get help right away if: ? Your knee swells, and the swelling gets worse. ? You cannot move your knee. ? You have very bad knee pain that does not get better with pain medicine. Summary ? Many things can cause knee pain. The pain often goes away on its own with time and rest. ? Your doctor may do tests to find out the cause of the pain. ? Watch for any changes in your symptoms. Relieve your pain with rest, medicines, light activity, and use of ice. ? Get help right away if you cannot move your knee or your knee pain is very bad. This information is not intended to replace advice given to you by your health care provider. Make sure you discuss any questions you have with your health care provider. Document Revised: 04/09/2021 Document Reviewed: 04/09/2021 Elsevier Patient Education ? 2022 [employer] Normal [facility] ED Patient Summaryon 023 ED Patient Summary (Inserted Image. Farheen ble to display) [place] [id number] Patient Discharge Instructions Person Information Name: HIEN LAM Age: 47 Years Arrival Date: 08/02/2023 21:50:15 Discharge Diagnosis: Knee contusion Primary Care Physician: Eddie SHANKS, Mindy López Provider Information Primary Provider: Tarah Escobar DO Advanced Field Service Engineer:None The exam and treatment you received in the Emergency Department were for an urgent problem and are not intended as complete care. It is important that you follow up with a doctor, nurse practitioner, or physician?s medical receptionist medical assistant for ongoing care. If your symptoms become worse or you do not improve as expected and you are unable to reach your usual health care provider, you should return to the Emergency Department. We are available 24 hours a day. HIEN LAM has been given the following list of patient education materials, prescriptions and follow-up instructions: Follow-up Instructions: With: Address: When: Charissa Seth [address] [place] [phone] Business (1) In 3 days 08/05/2023 With: Address: When: Mindy Morgan [address] [facility] [place] [phone] [facility] (1) In 3 days 08/05/2023 Comments: You can use the pain medication as prescribed as needed for pain. Please follow-up with your primary care doctor in addition to orthopedics for further evaluation management. Please return to the ED for any new or worsening symptoms. In the event that this physician does not participate in your insurance network, please consult with your insurance company to find a nearby participating provider. Patient Education Materials: Acute Knee Pain, Adult, Hqzn-bg-Cxvl A MESSAGE TO ALL PATIENTS REGARDING OPIOIDS PRESCRIPTION OPIOIDS: WHAT YOU NEED TO KNOW Prescription opioids can be used to help relieve blvsfiyu-su-bhvqrs pain and are often prescribed following a surgery or injury, or for certain health conditions. These medications can be an important part of the treatment but also come with serious risks. It is important to work with your healthcare provider to make sure you are getting the safest, most effective care. WHAT ARE THE RISKS AND SIDE EFFECTS OF OPIOID USE? Prescription opioids carry serious risks of addiction and overdose, especially with prolonged use. An opioid overdose, often marked by slowed breathing, can cause sudden . The use of prescription opioids can have a number of side effects as well, even when taken as directed: ? Tolerance?meaning you might need to take more of the medication for the same pain relief ? Physical dependence?meaning you have symptoms of withdrawal when a medication is stopped ? Increased sensitivity to pain ? Constipation ? Nausea, vomiting, and dry mouth ? Sleepiness and dizziness ? Confusion ? Depression ? Low levels of testosterone that can result in lower sex drive, energy, and strength ? Itching and sweating RISKS ARE GREATER WITH: ? History of drug misuse, substance use disorder, or overdose ? Mental health conditions (such as depression or anxiety) ? Sleep apnea ? Older age (65 years and older) ? Avoid alcohol while taking prescription opioids. Also, unless specifically advised by your health care provider, medications to avoid include: ? Benzodiazepines (such as Xanax or Valium) ? Muscle relaxants (such as Soma or Flexeril) ? Hypnotics (such as Ambien or Lunesta) ? Other prescription opioids KNOW YOUR OPTIONS Talk to your health care provider about ways to manage your pain that don?t involve prescription opioids. Some of these options may actually work better and have fewer risks and side effects. Options may include: ? Pain relievers such as acetaminophen, ibuprofen, and naproxen ? Some medication that are also used for depression or seizures ? Physical therapy and exercise ? Cognitive behavioral therapy, a psychological, goal-directed approach, in which patients learn how to modify physical, behavioral, and emotional triggers of pain and stress. IF YOU ARE PRESCRIBED OPIOIDS FOR PAIN: ? Never take opioids in greater amounts or more often than prescribed. ? Follow up with your primary health care provider. o Work together to create a plan on how to manage your pain. o Talk about ways to help manage your pain that don?t involve prescription opioids. o Talk about any and all concerns and side effects. ? Help prevent misuse and abuse o Never sell or share prescription opioids. o Never use another person?s prescription opioids. ? Store prescription opioids in a secure place and out of reach of others (this may include visitors, children, friends, and family). ? Safely dispose of unused prescription opioids: Find your community drug take-back program or your pharmacy mail-back program, or flush the (more content not included)... Normal [facility] Consent for Treatmenton 06-09 Consent for Treatment [id number]:12 7 Normal [facility] Discharge Instructionson Discharge Instructions [id number]:12 7 Normal [facility] ED Clinical Summaryon 2022 ED Clinical Summary (Inserted Image. Farheen ble to display) [place] [id number] ED Clinical Summary Person Information Name: HIEN LAM [facility] Age: 47 Years : 1975 Sex: Female Language: Gabonese PCP: Mindy Morgan MD Marital Status: Single Phone: [phone] Visit Id: Visit Reason: Medical screening exam; BLISTERING ON BOTH HIPS Speciality: Acuity: 4 Enc Type: Emergency Med Service: Emergency Arrival: 07/01/2023 11:32:14 Discharge: 07/01/2023 12:23:56 LOS: 000 00:51 Checkin: 07/01/2023 11:32:14 Checkout: 07/01/2023 12:23:56 Dispo Type: Home (Routine DC) EVENTS: Event Name Event Status Request Date/Time Start Date/Time Complete Date/Time Arrive Complete 07/01/2023 11:32:14 07/01/2023 11:32:14 07/01/2023 11:32:14 Document Home Meds Request 07/01/2023 11:32:14 Triage Complete 07/01/2023 11:32:14 07/01/2023 11:45:10 07/01/2023 11:45:10 No Visitors Request 07/01/2023 11:34:09 Bed Assign Complete 07/01/2023 11:35:07 07/01/2023 11:35:07 07/01/2023 11:35:07 Dr Exam Complete 07/01/2023 11:35:07 07/01/2023 11:36:11 07/01/2023 11:36:11 RN Exam Complete 07/01/2023 11:35:07 07/01/2023 11:50:34 07/01/2023 11:50:34 Registration Complete 07/01/2023 11:36:11 07/01/2023 11:38:40 07/01/2023 11:38:40 Reg Complete Request 07/01/2023 11:38:40 Reg Bed Request Complete 07/01/2023 11:38:40 07/01/2023 11:38:40 07/01/2023 11:38:40 Isolation Screening Request 07/01/2023 11:45:11 Discharge Complete 07/01/2023 12:08:08 07/01/2023 12:24:22 07/01/2023 12:24:22 Transfer Complete 07/01/2023 12:24:22 07/01/2023 12:24:22 07/01/2023 12:24:22 ADDRESS: [address] [place] [phone] PHYS DOC NOTES: MEDICAL INFORMATION: Prescriptions Given: New Medications [facility]/pharmacy #[id number], [address] [place], [place] [id number], [phone] doxycycline (doxycycline hyclate 100 mg Cap) 1 Capsules By Mouth 2 times a day for 10 Days. Refills: 0. Medications to Continue Taking That Have Changed [facility]/pharmacy #[id number], [address] [place], [place] [id number], [phone] START: mupirocin topical (mupirocin Top 2% Oint) 1 Application Topical 3 times a day. Refills: 0. Other Medications START: mupirocin topical (mupirocin Top 2% Oint) 1 Application Topical 3 times a day. Refills: 0. Medications to Continue with No Changes Other Medications albuterol (albuterol 0.083% Inh Tiffanie 3 mL) 3 Milliliter Inhalation every 6 hours. Q6H and PRN. albuterol (albuterol CFC free 90 mcg/inh Inh Aer w/Adapt 8 gm (Ventolin)) 2 Puffs Inhalation 4 times a day. Refills: 0. aspirin (aspirin 81 mg Oral EC Tab) 1 Tablets By Mouth every day. atorvastatin (Lipitor 20 mg Tab) 2 Tablets By Mouth every day. 40 mg. cephalexin (cephalexin 500 mg Cap) 1 Capsules By Mouth 4 times a day. Refills: 0. ergocalciferol (Vitamin D2 2000 intl units oral capsule) ertugliflozin (Steglatro 15 mg oral tablet) fenofibrate (fenofibrate 145 mg Tab) 1 Tablets By Mouth every day. gabapentin (gabapentin 800 mg Tab) 1 Tablets By Mouth 4 times a day. ibuprofen (ibuprofen 600 mg Tab) 1 Tablets By Mouth every 6 hours as needed as needed for pain. Refills: 0. insulin isophane-insulin regular (NovoLIN 70/30 FlexPen subcutaneous suspension) lisinopril (lisinopril 5 mg Tab) 1 Tablets By Mouth every day. mifepristone (Korlym 300 mg oral tablet) 1 Tablets By Mouth every day. naproxen (Naprosyn 500 mg Tab) 1 Tablets By Mouth 2 times a day. Refills: 0. pantoprazole (Protonix 40 mg Tab-DR) 1 Tablets By Mouth every day. spironolactone (spironolactone 25 mg Tab) tiotropium (Spiriva Respimat 28 ACT 2.5 mcg/inh inhalation aerosol) topiramate (Topamax 200 mg Tab) 1 Tablets By Mouth 2 times a day. valacyclovir (Valtrex) 500 Milligram By Mouth every day. PATIENT EDUCATION INFORMATION: Instructions: Wound Infection Follow up: With: Address: When: Mindy Eddie [address] [place] [address], [address] [place], [place] [id number] [employer] (1[employer] In 3 days 07/04/2023 Comments: Return to the emergency room if the redness around the wounds gets worse, drainage from the wound, fever, red streaks or any new symptoms. DIAGNOSIS: 1:Wound infection; Local infection of the skin and subcutaneous tissue, unspecified Normal [facility] ED Note-Physicianon 07-01-20 ED Note-Physician Basic Information Time Seen: Toro GhotraDana 07/01/2023 11:36 Chief Complaint Pt has blisters on bilateral hips. Noticed the L one a week ago and then the one on the R last night. Is prone to MRSA per pt. History of Present Illness The patient is a 47-year-old female past medical history of diabetes, COPD who presented to the emergency room with wounds. The patient states for past couple days she had some wounds which they become red and warm to touch. The patient states the wound started as blisters. She seen her primary doctor who had told her to keep an eye. The patient states now she sees redness around it and they started to hurt. The patient states she had fever at home. The patient denies any other associated symptoms Review of Systems Additional ROS info: Except as noted in the above Review of Systems and in the History of Present Illness all other systems have been reviewed and are negative or noncontributory. Physical Exam Vitals & Measurements T: 36.9 ?C(Oral) HR: 99(Peripheral) RR: 16 BP: 94/62 SpO2: 100% HT: 167 cm WT: 88 kg BMI: 31.55 General: alert, no acute distress Skin: warm, dry Head: no trauma, normocephalic Neck: Trachea midline Eye: normal conjunctiva, sclera clear Cardiovascular: regular rate and rhythm Respiratory: Lungs CTA, respirations non labored, breath sounds equal Back: No tenderness, there are 2 wounds one on the lateral aspect of the left pelvic region about 1 x 2 cm diameter area with scab minimal erythema around it, no drainage, no lymphangitis and one on the right lower back 2 x 2 centimeter diameter area with scab, with minimal erythema around it, no drainage, no lymphangitis Extremities: no deformity, no trauma Neurological: Alert and oriented, speech normal, no focal neuro deficits Psychiatric: cooperative, affect appropriate for age, Medical Decision Making MEDICAL DECISION MAKING Number and Complexity of Problems Differential Diagnosis: [] [facility] Data External documents reviewed: [] My EKG interpretation: [] My CT interpretation: [] My X-ray interpretation: [] My Ultrasound interpretation: [] Decision rules/scores evaluated: [] Discussed with: [] Treatment and Disposition ED Course: Patient presented with wound that they have started as a blister. They have erythema around it which indicate starting an infection. There is no drainage on the wound. No lymphangitis. The patient states she has history of MRSA in the past. She is diabetic. We will discharge patient home with prescription for clindamycin and mupirocin topical ointment. We will have her follow-up with primary care. She is instructed to return to the emergency room if there is drainage from the wound, the redness gets worse, red streaks or any new symptoms. Shared decision making: [] Code status: [] Assessment/Plan 1. Wound infection (T14.8XXA: Other injury of unspecified body region, initial encounter) Local infection of the skin and subcutaneous tissue, unspecified (L08.9: Local infection of the skin and subcutaneous tissue, unspecified) Orders: doxycycline, 100 mg = 1 cap(s), Oral, BID, X 10 day(s), # 20 cap(s), Refills(s) 0, Pharmacy: [id number], 167, cm, 07/01/23 11:45:00 EDT, Height/Length Dosing, 88, kg, 07/01/23 11:45:00 EDT, Weight Dosing mupirocin topical, 1 tramaine, Topical, TID, 22 gram, Refill(s) 0, [id number], 167, cm, 07/01/23 11:45:00 EDT, Height/Length Dosing, 88, kg, 07/01/23 11:45:00 EDT, Weight Dosing Disposition Plan Patient Discharge Condition Stable Discharge Disposition Discharged home Discharge Prescription List Prescriptions doxycycline hyclate 100 mg Cap, 100 mg= 1 cap(s), Oral, BID mupirocin Top 2% Oint, 1 tramaine, Topical, TID Follow-up With When Contact Information Mindy Morgan In 3 days 07/04/2023 EDT [address] [place] [address]- Business (1) Additional Instructions: Return to the emergency room if the redness around the wounds gets worse, drainage from the wound, fever, red streaks or any new symptoms. 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 Medications Inpatient No active inpatient medications (more content not included)... Normal [facility] Comment on above: Result Comment: Elec tronically Signed By: Toro Ghotra, Dana Celestin\.br\Date and Time Signed: 07/01/23 12:16 EDT ED Patient Education Noteon 07-01-2023 ED Patient Education Note Infectious Disease Wound Infection A wound infection happens when tiny organisms (microorganisms) start to grow in a wound. A wound infection is most often caused by bacteria. Infection can cause the wound to break open or worsen. Wound infection needs treatment. If a wound infection is left untreated, complications can occur. Untreated wound infections may lead to an infection in the bloodstream (septicemia) or a bone infection (osteomyelitis). What are the causes? This condition is most often caused by bacteria growing in a wound. Other microorganisms, like yeast and fungi, can also cause wound infections. What increases the risk? The following factors may make you more likely to develop this condition: ? Having a weak body defense system (immune system). ? Having diabetes. ? Taking steroid medicines for a long time (chronic use). ? Smoking. ? Being an older person. ? Being overweight. ? Taking chemotherapy medicines. What are the signs or symptoms? Symptoms of this condition include: ? Having more redness, swelling, or pain at the wound site. ? Having more blood or fluid at the wound site. ? A bad smell coming from a wound or bandage (dressing). ? Having a fever. ? Feeling tired or fatigued. ? Having warmth at or around the wound. ? Having pus at the wound site. How is this diagnosed? This condition is diagnosed with a medical history and physical exam. You may also have a wound culture or blood tests or both. How is this treated? This condition is usually treated with an antibiotic medicine. ? The infection should improve 24?48 hours after you start antibiotics. ? After 24?48 hours, redness around the wound should stop spreading, and the wound should be less painful. Follow these instructions at home: Medicines ? Take or apply iwkg-xqn-wnircsx and prescription medicines only as told by your health care provider. ? If you were prescribed an antibiotic medicine, take or apply it as told by your health care provider. Do not stop using the antibiotic even if you start to feel better. Wound care ? Clean the wound each day, or as told by your health care provider. ? Wash the wound with mild soap and water. ? Rinse the wound with water to remove all soap. ? Pat the wound dry with a clean towel. Do not rub it. ? Follow instructions from your health care provider about how to take care of your wound. Make sure you: ? Wash your hands with soap and water before and after you change your dressing. If soap and water are not available, use hand acid tank liner. ? Change your dressing as told by your health care provider. ? Leave stitches (sutures), skin glue, or adhesive strips in place if your wound has been closed. These skin closures may need to stay in place for 2 weeks or longer. If adhesive strip edges start to loosen and curl up, you may trim the loose edges. Do not remove adhesive strips completely unless your health care provider tells you to do that. Some wounds are left open to heal on their own. ? Check your wound every day for signs of infection. Watch for: ? More redness, swelling, or pain. ? More fluid or blood. ? Warmth. ? Pus or a bad smell. General instructions ? Keep the dressing dry until your health care provider says it can be removed. ? Do not take baths, swim, or use a hot tub until your health care provider approves. Ask your health care provider if you may take showers. You may only be allowed to take sponge baths. ? Raise (elevate) the injured area above the level of your heart while you are sitting or lying down. ? Do not scratch or pick at the wound. ? Keep all follow-up visits as told by your health care provider. This is important. Contact a health care provider if: ? Your pain is not controlled with medicine. ? You have more redness, swelling, or pain around your wound. ? You have more fluid or blood coming from your wound. ? Your wound feels warm to the touch. ? You have pus coming from your wound. ? You continue to notice a bad smell coming from your wound or your dressing. ? Your wound that was closed breaks open. Get help right away if: ? You have a red streak going away from your wound. ? You have a fever. Summary ? A wound infection happens when tiny organisms (microorganisms) start to grow in a wound. ? This condition is usually treated with an antibiotic medicine. ? Follow instructions from your health care provider about how to take care of your wound. ? Contact a health care provider if your wound infection does not begin to improve in 24?48 hours, or your symptoms worsen. ? Keep all follow-up visits as told by your health care provider. This is important. This information is not intended to replace advice given to you by your health care provider. Make sure you discuss any questions you have with your health care provider. Document Revised: 08/20/2022 Document Reviewed: 08/20/2022 [email or web address] Patient Educ (more content not included)... Normal [facility] ED Patient Summaryon 023 ED Patient Summary (Inserted Image. Farheen ble to display) [place] [id number] Patient Discharge Instructions Person Information Name: HIEN LAM Age: 47 Years Arrival Date: 07/01/2023 11:32:14 Discharge Diagnosis: 1:Wound infection; Local infection of the skin and subcutaneous tissue, unspecified Primary Care Physician: Mindy Morgan MD Provider Information Primary Provider: Dana Engel M.D. Advanced Field Service Engineer:None The exam and treatment you received in the Emergency Department were for an urgent problem and are not intended as complete care. It is important that you follow up with a doctor, nurse practitioner, or physician?s medical receptionist medical assistant for ongoing care. If your symptoms become worse or you do not improve as expected and you are unable to reach your usual health care provider, you should return to the Emergency Department. We are available 24 hours a day. HIEN LAM has been given the following list of patient education materials, prescriptions and follow-up instructions: Follow-up Instructions: With: Address: When: Mindy Morgan [address] [facility] [address] [place] [address] Meograph (1) In 3 days 07/04/2023 Comments: Return to the emergency room if the redness around the wounds gets worse, drainage from the wound, fever, red streaks or any new symptoms. In the event that this physician does not participate in your insurance network, please consult with your insurance company to find a nearby participating provider. Patient Education Materials: Wound Infection A MESSAGE TO ALL PATIENTS REGARDING OPIOIDS PRESCRIPTION OPIOIDS: WHAT YOU NEED TO KNOW Prescription opioids can be used to help relieve xvpfuazw-eb-eoplmu pain and are often prescribed following a surgery or injury, or for certain health conditions. These medications can be an important part of the treatment but also come with serious risks. It is important to work with your healthcare provider to make sure you are getting the safest, most effective care. WHAT ARE THE RISKS AND SIDE EFFECTS OF OPIOID USE? Prescription opioids carry serious risks of addiction and overdose, especially with prolonged use. An opioid overdose, often marked by slowed breathing, can cause sudden . The use of prescription opioids can have a number of side effects as well, even when taken as directed: ? Tolerance?meaning you might need to take more of the medication for the same pain relief ? Physical dependence?meaning you have symptoms of withdrawal when a medication is stopped ? Increased sensitivity to pain ? Constipation ? Nausea, vomiting, and dry mouth ? Sleepiness and dizziness ? Confusion ? Depression ? Low levels of testosterone that can result in lower sex drive, energy, and strength ? Itching and sweating RISKS ARE GREATER WITH: ? History of drug misuse, substance use disorder, or overdose ? Mental health conditions (such as depression or anxiety) ? Sleep apnea ? Older age (65 years and older) ? Avoid alcohol while taking prescription opioids. Also, unless specifically advised by your health care provider, medications to avoid include: ? Benzodiazepines (such as Xanax or Valium) ? Muscle relaxants (such as Soma or Flexeril) ? Hypnotics (such as Ambien or Lunesta) ? Other prescription opioids KNOW YOUR OPTIONS Talk to your health care provider about ways to manage your pain that don?t involve prescription opioids. Some of these options may actually work better and have fewer risks and side effects. Options may include: ? Pain relievers such as acetaminophen, ibuprofen, and naproxen ? Some medication that are also used for depression or seizures ? Physical therapy and exercise ? Cognitive behavioral therapy, a psychological, goal-directed approach, in which patients learn how to modify physical, behavioral, and emotional triggers of pain and stress. IF YOU ARE PRESCRIBED OPIOIDS FOR PAIN: ? Never take opioids in greater amounts or more often than prescribed. ? Follow up with your primary health care provider. o Work together to create a plan on how to manage your pain. o Talk about ways to help manage your pain that don?t involve prescription opioids. o Talk about any and all concerns and side effects. ? Help prevent misuse and abuse o Never sell or share prescription opioids. o Never use another person?s prescription opioids. ? Store prescription opioids in a secure place and out of reach of others (this may include visitors, children, friends, and family). ? Safely dispose of unused prescription opioids: Find your community drug take-back program or your pharmacy mail-back program, or flush them down the toilet, following guidance from the Food and Drug Administration (www.fda.gov/Drugs/Resour cesForYou). ? Visit www.cdc.gov/drugoverdose to learn about the risks (more content not included)... Normal [facility] Mamm Screen w/CAD if perf and 3D Bilon 06-07-2023 MA Mamm Screen w/CAD if perf and 3D Rachel Exam Date/Time: 06/04/2023 13:14 EDT Reason for Exam: Z12.31 Report IMPRESSION: BIRADS 1 NEGATIVE, NORMAL INTERVAL FOLLOW-UP.12 MONTH RECALL. CLINICAL HISTORY: Z12.31. COMPARISON: 06/03/2022. COMMENT: Routine views and tomosynthesis views of both breasts were obtained. There are scattered areas of fibroglandular density. No dominant breast mass nor neoplastic calcifications are identified in either breast. There has been no significant change from the previous exam. The examination was reviewed with Computer Aided Detection. Breast Density: No Mammography is very important to your health. The current [employer] and National [employer] Network guidelines recommends annual mammography beginning at age 40. This facility utilizes a reminder system to ensure all patients receive reminder notifications at the appropriate time based on the recommendations of this exam. Board Certified Radiologists. Accredited by the ACR and FDA. Ordering Provider: REFERRAL, SELF FINAL REPORT Dictated: 06/07/2023 3:53 pm Narciso Segura M.D. Signed (Electronic Signature): 06/07/2023 3:53 pm Signed by: Narciso Segura M.D. Transcribed by: DIAMANTE Technologist: NAINA Assessment: BI-RADS Category 1-Negative Recommendation: Normal interval follow-up Normal [facility] Lab Miscellaneous-LCon 06-05 Lab Miscellaneous COMMENT Invalid Interpretation Code [facility] Comment on above: Result Comment: Test Ordered: [id number] HSV 1 and 2 Ab, IgG HSV 1 IgG, Type Spec <0.91 index Reference Range: 0.00-0.90 Negative <0.91 Equivocal 0.91 - 1.09 Positive >1.09 Note: Negative indicates no antibodies detected to HSV-1. Equivocal may suggest early infection. If clinically appropriate, retest at later date. Positive indicates antibodies detected to HSV-1. HSV 2 IgG, Type Spec <0.91 index Reference Range: 0.00-0.90 Negative <0.91 Equivocal 0.91 - 1.09 Positive >1.09 HSV-2 Antibody Interpretation: Negative indicates no detectable antibodies to HSV-2 were found. If recent exposure is suspected, retest in 4-6 weeks. Equivocal samples should be retested in 4-6 weeks. Positive indicates the presence of detectable IgG antibody to HSV-2. False positive results may occur. Repeat testing, or testing by a different method, may be indicated in some settings (e.g. patients with low likelihood of HSV infection). If clinically appropriate, retest 4-6 weeks later. Performed at: [facility] [address] [id number] PhD Marisa Pino Performed By: #### 1 [id number] ####[facility] [address] [place] [address] Consent for Treatmenton 05-09 Consent for Treatment [id number]:12 7 Normal [facility] Consent for Treatment [id number]:12 7 Normal [facility] Lab Miscellaneous-LCon 06-04 Test Code 950403 Invalid Interpretation Code [facility] Comment on above: Performed By: #### 1 [id number] ####[facility] [address] [place] [address] Test Name HSV 1 2,IgG Invalid Interpretation Code [facility] Comment on above: Performed By: #### 1 [id number] ####[facility] [address] [place] [address] Physician Orderon 06-04-2023 Physician Order [id number]:12 7 Normal [facility] Reference Laboratory Testing Ordered By: Juju Rodriguez on 06-04-2023 Test Code 189328 Invalid Interpretation Code [facility]SS Test Name HSV 1 2,IgG Invalid Interpretation Code [facility] Laboratory - Chemistry and C hemistry - challengeon 04-27-2023 Anion gap [Moles/Vol] 13 mmol/L 10 - 20 [facility] DO Work Phone: [phone] Calcium [Mass/Vol] 9.2 mg/dL 8.6 - 10.3 [facility] 305 DO Work Phone: [phone] Chloride [Moles/Vol] 107 mmol/L 98 - 107 [facility] 305 DO Work Phone: [phone] CO2 [Moles/Vol] 20 mmol/L below low threshold 21 - 32 [facility] 305 DO Work Phone: [phone] Creatinine [Mass/Vol] 0.90 mg/dL See Below [facility] 305 DO Work Phone: [phone] Comment on above: Reference Range: 0.5 0 - 1.05 Glucose [Mass/Vol] 98 mg/dL 74 - 99 [facility] DO Work Phone: [phone] Potassium [Moles/Vol] 3.9 mmol/L 3.5 - 5.3 [facility] Micah DO Work Phone: [phone] Sodium [Moles/Vol] 136 mmol/L 136 - 145 [facility] 305 DO Work Phone: [phone] Urea nitrogen [Mass/Vol] 21 mg/dL 6 - 23 [facility] 305 DO Work Phone: [phone] Laboratory - Coagulationon 0 04-27-2023 INR Coag (PPP) [Relative time] 1.0 {INR} 0.9 - 1.1 [facility] Work Phone: [phone] PT Coag (PPP) [Time] 10.9 s 9.8 - 12.8 [facility] 305 DO Work Phone: [phone] Comment on above: Note new reference r mary as of 04/27/2023 at 10:00am. Laboratory - Hematology and Cell countson 04-27-2023 Erythrocyte distribution width (RBC) [Ratio] 12.9 % See Below [facility] Work Phone: [phone] Comment on above: Reference Range: 11. 5 - 14.5 Hematocrit (Bld) [Volume fraction] 50.2 % above high threshold See Below [facility] Work Phone: [phone] Comment on above: Reference Range: 36. 0 - 46.0 Hemoglobin (Bld) [Mass/Vol] 17.1 g/dL above high threshold See Below [facility] Work Phone: [phone] Comment on above: Reference Range: 12. 0 - 16.0 MCHC (RBC) [Mass/Vol] 34.1 g/dL See Below [facility] Mic[facility] DO Work Phone: [phone] Comment on above: Reference Range: 32. 0 - 36.0 MCV (RBC) [Entitic vol] 102 fL above high threshold 80 - 100 [facility] DO Work Phone: Platelets (Bld) [#/Vol] 217 10*3/uL 150 - 450 [facility] Micah DO Work Phone: [phone] RBC (Bld) [#/Vol] 4.93 {x10E12/L} See Below [facility] Micah DO Work Phone: Comment on above: Reference Range: 4.0 0 - 5.20 WBC (Bld) [#/Vol] 11.9 10*3/uL above high threshold 4.4 - 11.3 [facility] [employer] [facility] DO Work Phone: No Panel Informationon 04-27 79 {mL/min/1.73m2} >90 [facility] [facility] DO Work Phone: Comment on above: CALCULATIONS OF CRISTIAN MATED GFR ARE PERFORMED USING THE 2020 CKD-EPI STUDY REFIT EQUATION WITHOUT THE RACE VARIABLE FOR THE IDMS-TRACEABLE CREATININE METHODS.https://jasn.asnjournals.org/content// N.4273586864 Office Visit (Cardiology)on 04-27-2023 Follow-up visit Diagnoses/Problems Assessed Benign essential hypertension (401.1) (I10) Syncope and collapse (780.2) (R55) Sinus node dysfunction (427.81) (I49.5) Current smoker (305.1) (F17.200) Class 1 obesity with body mass index (BMI) of 34.0 to 34.9 in adult (278.00,V85.34) (E66.9,Z68.34) Orders Bradycardia Basic Metabolic Panel; Status:Resulted - Requires Verification,Retrospectiv e Authorization; Done: 27Apr2023 10:50AM Complete Blood Count; Status:Resulted - Requires Verification,Retrospectiv e Authorization; Done: 27Apr2023 10:50AM PT/INR; Status:Resulted - Requires Verification,Retrospectiv e Authorization; Done: 27Apr2023 10:50AM Bradycardia, Syncope and collapse Loop Recorder Implant; Status:Active - Retrospective Authorization; Requested for:[id number]; SocHx: Cigarette smoker Tobacco Use Screening; Status:Complete; Done: [id number] SocHx: Current smoker Tobacco Use Screening; Status:Complete; Done: [id number] Patient Instructions Continue same medications/treatment. Patient educated on proper medication use. Patient educated on risk factor modification. Please bring any lab results from other providers/physicians to your next appointment. Please bring all medicines, vitamins, and herbal supplements with you when you come to the office. Prescriptions will not be filled unless you are compliant with your follow up appointments or have a follow up appointment scheduled as per instruction of your physician. Refills should be requested at the time of your visit. Follow up after procedure Loop recorder to be implanted Blood work to be done prior to the procedure ILindsey RN, am scribing for and in the presence of Dr. Geovany Ventura The provider reviewed the following test(s) and result(s) with the patient: ECG and MRI of the heart Chief Complaint New patient referred by Dr. Hunter for possible loop recorder History of Present Illness 47-year-old female with a past medical history of cystic compulsive disorder and also history of Chiari malformation with brain surgery done approximately a year ago. Patient has been followed by gynecology service since June last year after patient was admitted to outside hospital. 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 Then she got some radiation into the right arm. Then she started noticing right arm and right lower extremity weakness and she went home with those symptoms. At home her blood pressure systolic was found to be in the 80s with heart rates in the 40s. She came to emergency department for an evaluation. During telemetry patient states that her heart rate was always bradycardic. She was referred for cardiology for an evaluation. She had an a stress test and echocardiogram and also a Holter monitor that were unremarkable. Echocardiogram in December 2022 shows left ventricular ejection fraction of 60 to 65% with no significant valvular normalities. Holter monitor in October 2022 shows underlying rhythm of sinus rhythm with minimum heart rate 45 bpm maximal heart rate of 129 beats per hours heart of 64 bpm. There were brief episodes of nonsustained supraventricular tachycardia up to 4 beats of duration. Asymptomatic. No evidence of heart block or atrial fibrillation. Had a stress test in December 2022 shows no evidence of ischemia with a left ventricular ejection fraction of 69%. Due to persisting of symptoms of palpitations chest discomfort and sometimes diaphoresis an event monitor was ordered in March 2023. Event monitor shows underlying rhythm was sinus rhythm. There were 23 triggered events with symptoms that they were not specified. 1 of these episodes were related with wide-complex tachycardia total of 9 beats that occurred on February 22, 2023 at 1 in the morning. rate of 173 bpm. Based on the results of the event monitor a cardiac MRI was done that shows left ventricular action fraction of 62% with delayed enhancement normal. No significant valvular normalities with mild asymmetric left ventricular hypertrophy.EKG performed today shows sinus rhythm rate of 71 bpm QRS duration 94 ms. QT corrected 430 ms. Clinical impression 1. Evidence of bradycardia during admission in outside hospital. 2. Palpitations 3. Evidence of nonsustained ventricular tachycardia on event monitor 4. Normal left ventricular function per echocardiogram in 2022 and cardiac MRI in 2022 5. No evidence of ischemia per stress test in 2022 6. 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 Obsessive-compulsive disorder Plan recommendations I had a lengthy discussion with patient regarding symptoms of palpitations and also evidence of bradycardia during outside hospital evaluation and also nonsustained ventricular tachycardia. Patient will benefit of long-term monitoring with a loop recorder implantation. Procedure, risk, benefits and possible complications discussed with patient. All question (more content not included)... Normal [facility] Tobacco Screening.on 023 Adult depression screening assessment Yes [facility] [employer] DO Work Phone: [phone] Adult depression screening assessment No [facility] [facility] [employer] DO Work Phone: [phone] Fall risk assessment b) One or more fall s in the last year [facility] [address] DO Work Phone: [phone] Tobacco use status CP a) Yes [facility] [employer] DO Work Phone: [phone] Tobacco Screening. Yes [facility] 305 DO Work Phone: [phone] Tobacco Screening. 0-Not at all [facility] 305 DO Work Phone: [phone] Tobacco Screening. 3-Nearly every day [facility] 305 DO Work Phone: Tobacco Screening. 2-More than half the days [facility] 305 DO Work Phone: Tobacco Screening. Extremely Difficult [facility] 305 DO Work Phone: MRI Cardiac w/wo contrast fo r Morph/Funct and Valve Dzon 04-09-2023 MRI Cardiac w/wo contrast for Morph/Funct and Valve Dz Normal [facility] [place] [place] [address] Work Phone: MRI CARDIAC RESONANCE LORI GING FOR VELOCITY FLOW MAPPINGon 04-09-2023 MRI CARDIAC RESONANCE IMAGING FOR VELOCITY FLOW MAPPING [facility] CMR Report Name: HIEN LAM : 1975 Scan Date: 2023-04-09 15:45:00 Electronically signed by CHARISSA STOKES 12:01:00 GENERAL INFORMATION HEIGHT: 66.00 in (167.64 cm) WEIGHT: 200.00 lbs (90.72 kgs) BSA: 2.00 m^2 SCAN LOCATION: [facility] REFERRING PHYSICIAN: GILBERTO ESTRADA ATTENDING PHYSICIAN: GILBERTO ESTRADA TECHNOLOGIST: Helen Rangel ACCESSION NUMBER: [id number] CPT CODES: 79656, [ , ]35594 ICD10 CODES: G47.33, [ , ]R55 SUMMARY 1. Normal left ventricular cavity size with preserved systolic function. Ejection fraction 62%. 2. Delayed enhancement imaging is normal. No evidence of fibrosis, infiltrative disease, previous myocardial infarction, or inflammation of the left ventricular or right ventricular myocardium. 3. Normal right ventricular cavity size with preserved systolic function. RV EF 59%. No CMR evidence of ARVC. 4. Mild basal asymmetric septal left ventricular hypertrophy. Basal anterior septum 1.3 cm. LEFT VENTRICLE: Quantitative LVEF 62 %. There is mild LV hypertrophy. There is asymmetric LVH. LV cavity size is normal. LV systolic function is normal. VIABILITY: Hyperenhancement is normal. RIGHT VENTRICLE: Quantitative RVEF 59 %. RV wall thickness is normal. RV cavity size is normal. RV systolic function is normal. LV/RV SEPTUM: The ventricular septum is intact. LA/RA SEPTUM: The atrial septum is intact. LEFT ATRIUM: LA cavity size is normal. RIGHT ATRIUM: RA cavity size is normal. PERICARDIUM: Pericardium is normal. There is no pericardial effusion. There are no signs of increased intrapericardial pressures. PLEURAL EFFUSION: There is no pleural effusion. AORTIC VALVE: Aortic valve is trileaflet. There is no aortic regurgitation. There is no aortic stenosis. MITRAL VALVE: Mitral valve leaflets are normal. There is mild mitral regurgitation. TRICUSPID VALVE: Tricuspid valve leaflets are normal. There is mild tricuspid regurgitation. PULMONIC VALVE: Pulmonic valve leaflets are normal. AORTIC ROOT: The aortic root is normal. CORE EXAM MEASUREMENTS VOLUMETRIC ANALYSIS . ------. . . . LV . Reference . RV . Reference . +------+ +------ + +------+----- ------+ . EDV . ml . 110 . (90-171) . 141 . (87-172) . . . ml/m^2 . 55 . (59-93) . 71 . (57-94) . . ESV . ml . 42 . (25-62) . 58 . (20-72) . . . ml/m^2 . 21 . (16-34) . 29 . (14-40) . . CO . L/min . 4.38 . . 5.33 . . . . L/min/m^2 . 2.19 . . 2.66 . . . MASS . g . 131 . (71-143) . . . . . g/m^2 . 65 . (48-77) . . . . SV . ml . 68 . (59-115) . 83 . (58-109) . . . ml/m^2 . 34 . (39-63) . 42 . (37-61) . . EF . % . 62 . (58-76) . 59 . (53-77) . '------+ +------ + +------+----- ------' CARDIAC OUTPUT HR: 64 BPM LV DIMENSIONS WALL THICKNESS - ANTEROSEPTAL: 1.3 cm WALL THICKNESS - INFEROLATERAL: 0.8 cm LV EMILE: 4.9 cm LV ESD: 3.8 cm LA DIMENSIONS (LV SYSTOLE) DIAMETER: 4.1 cm AREA - 2 CHAMBER: 17 cm^2 LENGTH - 2 CHAMBER: 5.1 cm AREA - 4 CHAMBER: 18 cm^2 LENGTH - 4 CHAMBER: 4.5 cm VOLUME: 58 ml VOLUME NORMALIZED: 28.9 ml/m^2 RA DIMENSIONS (RV SYSTOLE) DIAMETER: 3.4 cm AREA - 4 CHAMBER: 12 cm^2 LENGTH - 4 CHAMBER: 3.7 cm AORTIC ROOT DIMENSIONS ANNULUS: 2.4 cm SINUS OF VALSALVA: 3.1 cm SINOTUBULAR JUNCTION: 2.5 cm FLOW ANALYSIS QP: 4 L/min 17 SEGMENT . . . Segments . Wall Motion . Hyperenhancement . Stress Perfusion . Interpretation . + +--- + -----+ ----+ + . Base Anterior . Normal/Hyper . None . . Normal . . Base Anteroseptal . Normal/Hyper . None . . Normal . . Base Inferoseptal . Normal/Hyper . None . . Normal . . Base Inferior . Normal/Hyper . None . . Normal . . Base Inferolateral . Normal/Hyper . None . . Normal . . Base Anterolateral . Normal/Hyper . None . . Normal . . Mid (more content not included)... Normal [place] CARDIAC W/WO CONTRAST FOR MORPH/FUNCT AND VALVE [facility] 04-09-2023 MRI CARDIAC W/WO CONTRAST FOR MORPH/FUNCT AND VALVE [facility] CMR Report Name: HIEN LAM : 1975 Scan Date: 2023-04-09 15:45:00 Electronically signed by CHARISSA STOKES 12:01:00 GENERAL INFORMATION HEIGHT: 66.00 in (167.64 cm) WEIGHT: 200.00 lbs (90.72 kgs) BSA: 2.00 m^2 SCAN LOCATION: [facility] REFERRING PHYSICIAN: GILBERTO ESTRADA ATTENDING PHYSICIAN: GILBERTO ESTRADA TECHNOLOGIST: Helen Rangel ACCESSION NUMBER: [id number] CPT CODES: 01889, [ , ]37180 ICD10 CODES: G47.33, [ , ]R55 SUMMARY 1. Normal left ventricular cavity size with preserved systolic function. Ejection fraction 62%. 2. Delayed enhancement imaging is normal. No evidence of fibrosis, infiltrative disease, previous myocardial infarction, or inflammation of the left ventricular or right ventricular myocardium. 3. Normal right ventricular cavity size with preserved systolic function. RV EF 59%. No CMR evidence of ARVC. 4. Mild basal asymmetric septal left ventricular hypertrophy. Basal anterior septum 1.3 cm. LEFT VENTRICLE: Quantitative LVEF 62 %. There is mild LV hypertrophy. There is asymmetric LVH. LV cavity size is normal. LV systolic function is normal. VIABILITY: Hyperenhancement is normal. RIGHT VENTRICLE: Quantitative RVEF 59 %. RV wall thickness is normal. RV cavity size is normal. RV systolic function is normal. LV/RV SEPTUM: The ventricular septum is intact. LA/RA SEPTUM: The atrial septum is intact. LEFT ATRIUM: LA cavity size is normal. RIGHT ATRIUM: RA cavity size is normal. PERICARDIUM: Pericardium is normal. There is no pericardial effusion. There are no signs of increased intrapericardial pressures. PLEURAL EFFUSION: There is no pleural effusion. AORTIC VALVE: Aortic valve is trileaflet. There is no aortic regurgitation. There is no aortic stenosis. MITRAL VALVE: Mitral valve leaflets are normal. There is mild mitral regurgitation. TRICUSPID VALVE: Tricuspid valve leaflets are normal. There is mild tricuspid regurgitation. PULMONIC VALVE: Pulmonic valve leaflets are normal. AORTIC ROOT: The aortic root is normal. CORE EXAM MEASUREMENTS VOLUMETRIC ANALYSIS . ------. . . . LV . Reference . RV . Reference . +------+ +------ + +------+----- ------+ . EDV . ml . 110 . (90-171) . 141 . (87-172) . . . ml/m^2 . 55 . (59-93) . 71 . (57-94) . . ESV . ml . 42 . (25-62) . 58 . (20-72) . . . ml/m^2 . 21 . (16-34) . 29 . (14-40) . . CO . L/min . 4.38 . . 5.33 . . . . L/min/m^2 . 2.19 . . 2.66 . . . MASS . g . 131 . (71-143) . . . . . g/m^2 . 65 . (48-77) . . . . SV . ml . 68 . (59-115) . 83 . (58-109) . . . ml/m^2 . 34 . (39-63) . 42 . (37-61) . . EF . % . 62 . (58-76) . 59 . (53-77) . '------+ +------ + +------+----- ------' CARDIAC OUTPUT HR: 64 BPM LV DIMENSIONS WALL THICKNESS - ANTEROSEPTAL: 1.3 cm WALL THICKNESS - INFEROLATERAL: 0.8 cm LV EMILE: 4.9 cm LV ESD: 3.8 cm LA DIMENSIONS (LV SYSTOLE) DIAMETER: 4.1 cm AREA - 2 CHAMBER: 17 cm^2 LENGTH - 2 CHAMBER: 5.1 cm AREA - 4 CHAMBER: 18 cm^2 LENGTH - 4 CHAMBER: 4.5 cm VOLUME: 58 ml VOLUME NORMALIZED: 28.9 ml/m^2 RA DIMENSIONS (RV SYSTOLE) DIAMETER: 3.4 cm AREA - 4 CHAMBER: 12 cm^2 LENGTH - 4 CHAMBER: 3.7 cm AORTIC ROOT DIMENSIONS ANNULUS: 2.4 cm SINUS OF VALSALVA: 3.1 cm SINOTUBULAR JUNCTION: 2.5 cm FLOW ANALYSIS QP: 4 L/min 17 SEGMENT . . . Segments . Wall Motion . Hyperenhancement . Stress Perfusion . Interpretation . + +--- + -----+ ----+ + . Base Anterior . Normal/Hyper . None . . Normal . . Base Anteroseptal . Normal/Hyper . None . . Normal . . Base Inferoseptal . Normal/Hyper . None . . Normal . . Base Inferior . Normal/Hyper . None . . Normal . . Base Inferolateral . Normal/Hyper . None . . Normal . . Base Anterolateral . Normal/Hyper . None . . Normal . . Mid (more content not included)... Normal [facility] Office Visit (Neuro-General) on 05-02-2023 Follow-up visit Patient Discussion/Summary I had a long discussion about the role of medicine, and effectiveness of the medication and the precautions to be taken including gait and safety issue and to follow-up with the neurosurgeon for follow-up MRI of the head and the spine. Depending on how she does I might make future recommendation when she comes back to see me in a year. Due to technical limitations of voice recognition and human error, this note may not accurately reflect the care of the patient. Diagnoses/Problems Assessed Chiari malformation type I (348.4) (G93.5) Seizure disorder (345.90) (G40.909) Diabetic neuropathy (250.60,357.2) (E11.40) Syringomyelia (336.0) (G95.0) Orders Seizure disorder Renew: Briviact 100 MG Oral Tablet; 2 po bid Renew: Fycompa 4 MG Oral Tablet; 1 po hs Chief Complaint F/U Neurologic Evaluation. HIEN here for consult. 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 She also has history of diabetic neuropathy. Since last seen she has been seizure-free and doing very well on her medication. Today her physical and neurological nonfocal except for mild impairment of pinprick and touch in both upper and lower extremities. I would like to continue her medication the way she is taking and see her back in a year and have encouraged her to follow-up with the neurosurgeon and may need an MRI of the head and the spine for follow-up of her Arnold-Chiari and syringomyelia I had a long discussion about the signs symptoms watch for and the seizure risk and the precautions and the importance of taking medications regularly and to avoid any alcohol and the importance of sleep which she understood Review of Systems Constitutional: no fever and no unexplained weight loss. Eyes: no diplopia and no vision loss/change. ENMT: no hearing loss and no dizziness/vertigo. Respiratory: no cough and no dyspnea. Cardiovascular: no chest pain and no palpitations. Gastrointestinal: no dysphagia and no bleeding. Genitourinary: no hematuria and no incontinence. Skin: no rashes. Neurological: no seizures and no frequent falls. Hematologic/Lymphatic: no excessive bruising. All other systems have been reviewed and are negative for complaint. 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4) (Z87.39) History of asthma (V12.69) (Z87.09) History of bronchitis (V12.69) (Z87.09) History of chronic obstructive lung disease (V12.69) (Z87.09) History of depression (V11.8) (Z86.59) History of diabetes mellitus (V12.29) (Z86.39) History of gastroesophageal reflux (GERD) (V12.79) (Z87.19) History of mental disorder (V11.9) (Z86.59) History of sleep apnea (V13.89) (Z86.69) History of snoring (V15.89) (Z87.898) History of thyroid disorder (V12.29) (Z86.39) History of Lung trouble (786.00) (J98.4) Surgical History Problems History of Gallbladder Surgery History of Tonsillectomy With Adenoidectomy Family History Mother No pertinent family history Father No pertinent family history Social History Problems Cigarette smoker (305.1) (F17.210) No alcohol use Uses marijuana daily Allergies Medication Cymbalta Recorded By: Александр Rader; 10/13/2021 12:59:45 PM Lyrica CAPS Recorded By: Lexi Leyva; 10/14/2017 3:18:49 PM NonMedication Seafood Recorded By: Oliver Auguste; 10/23/2019 3:51:47 PM Current Meds Medication NameInstruction Amitiza 24 MCG Oral CapsuleTAKE 1 CAPSULE TWICE DAILY WITH FOOD. Aspirin 81 81 MG Oral Tablet Delayed ReleaseTAKE 1 TABLET DAILY. Atorvastatin Calcium 40 MG Oral TabletTAKE 1 TAB (more content not included)... 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 (V58.67) (Z79.4) Hyperlipidemia LDL goal <100 (272.4) (E78.5) History of thyroid nodule (V12.29) (Z86.39) Diabetic neuropathy (250.60,357.2) (E11.40) Neuropathy (355.9) (G62.9) Multinodular goiter (nontoxic) (241.1) (E04.2) Orders skilled nursing current use of insulin, Type 2 diabetes mellitus, uncontrolled Hemoglobin A1C; Status:Complete; Done: 09Feb2023 02:35PM Performed:[facility]; Due:[id number];Ordered; For:skilled nursing current use of insulin, Type 2 diabetes mellitus, uncontrolled; Ordered By:Oliver Auguste; Multinodular goiter (nontoxic) TSH WITH REFLEX TO FREE T4 IF ABNORMAL; Status:Resulted - Requires Verification; Done: [id number] 02:35PM Performed:[facility]; Due:[id number];Ordered; For:Multinodular goiter (nontoxic); Ordered By:Oliver Auguste; Neuropathy Vitamin B12, Serum; Status:Resulted - Requires Verification; Done: [id number] 02:35PM Performed:[facility]; Due:[id number];Ordered; For:Neuropathy; Ordered By:Oliver Auguste; Vitamin D 25-Hydroxy; Status:Resulted - Requires Verification; Done: [id number] 02:35PM Performed:[facility]; Due:[id number];Ordered; For:Neuropathy; Ordered By:Oliver Auguste; Unlinked Stop: Gabapentin 600 MG Oral Tablet Dispense: 0 Days ; #: Sufficient Tablet; Refill: 0; ADDIS = N; Record; Last Updated By: Oliver Auguste; 02/09/2023 2:05:48 PM Patient Discussion/Summary Thank you for coming to Endocrinology! WORK ON QUITTING SMOKING TO IMPROVE SURGICAL OUTCOMES - from endocrine stand point you are clear to undergo any surgical intervention necessary CONTINUE PLANT BASED DIET - drink plenty of water Please continue to check your glucose 2 times a day (before 1st meal and at bedtime). Please continue taking lispro as per sliding scale before meals as needed. STOP TRULICITY STOP SPIRONOLACTONE Continue Atorvastatin 40mg once daily Return to clinic in 6 months, and 12 months, update labs again 1-2 weeks prior to our next appointment I will call you if your labs are abnormal Correction/Sliding Scale to be use with lispro before meals Glucose RangeINSULIN DOSE 0 - 149 0 150 - 175 1 176 - 200 2 201 - 225 3 226 - 250 4 251 - 275 5 276 - 300 6 301 - 325 7 326 - 350 8 351 - 375 9 376 - 400 10 Provider Impressions Emma is interested an engaged in the improvement of their glycemic control and overall wellness at this time. They were alert and engaged in all education conversation. They would benefit from the improved ease of glucose monitoring compliance seen with personal CGM device such as the Freestyle Magnolia - magnolia does not stay adhered to skin despite use of skin tac Pt had good comprehension of insulin sliding scale information reviewed and discussed today. Chief Complaint An interactive audio and video telecommunication system which permits real time communications between the patient (at the originating site) and provider (at the distant site) was utilized to provide this telehealth service. Verbal consent was requested and obtained from HIEN LAM on this date, 02/09/2023 01:30 PM , for a telehealth visit. f/u DM2 f/u DM2 History of Present Illness HIEN LAM is being seen for routine follow-up for, type 2 diabetes. Date of last HbA1c: 11/30/22 and results: 6.0%. Current DM Regimen:. diet controlled. injectables. insulin. CGM. compliant with current DM regimen. Home Glucose Monitoring: Source: reported by patient. Frequency of Testing: Compliant with home glucose monitoring. Glucose Ranges: 80-175. No recent hypoglycemic episodes. Diet Plan: Type of Diet: Low carb Patient is non-compliant with diet plan. Cardiovascular: peripheral arterial disease. Renal: no nephropathy. Neurologic: peripheral neuropathy. Pt is feeling much better since her chiari malformation was surgically corrected. she is more comfortable walking more and has stopped her GLP1 and spironolactone tx's. Pt has lost 30lb in the last year and is looking forward to excess skin removal surgery and L knee replacement surgery. she is down 65lb from her highest weight on [facility] record, and down nearly 200lb from highest weight to pt's memory we discussed importance of smoking cessation to promote adequate healing for possible skin resection and knee replacement agrees to updated labs to evaluate thyroid, metabolic panel, and A1C Review of Systems Constitutional: recent 30 lb weight loss, but no fever, no chills, normal appetite, no recent weight gain and not feeling tired (fatigue). Endocrine:. no change in energy level. Eyes: no eye pain, no double vision and no change in vision. ENT: no hearing loss, no dental problems, no sore throat and no change in voice. Cardiovascular: slow heart rate, but no chest pain, no palpitations, no intermittent leg claudication and no lower extremity edema. Respi (more content not included)... Normal [facility] M[facility] Hemoglobin A1Con 02-09-2023 Glucose [Mass/Vol] 123 mg/dL MG-Car diolog y-[place] [employer] Work Phone: HbA1c (Bld) [Mass fraction] 5.9 % Abnormal -Cardiolog [facility] [employer] Work Phone: Comment on above: Diagnosis of Diabete s-Adults Non-Diabetic: < or = 5.6% Increased risk for developing diabetes: 5.7-6.4% Diagnostic of diabetes: > or = 6.5%. Monitoring of Diabetes Age (y) Therapeutic Goal (%) Adults: >18 <7.0 Pediatrics: 13-18 <7.5 7-12 <8.0 0- 6 7.5-8.5 [employer] [place]. Diabetes Care 33(S1), Nov 2009. Laboratory - Chemistry and C hemistry - challengeon 02-09-2023 TSH Qn 1.02 m[IU]/L See Below [employer] Work Phone: Comment on above: Reference Range: 0.4 4 - 3.98 TSH testing is performed using different testing methodology at [facility] than at other [facility]. Direct result comparisons should only be made within the same method. Tobacco Screening.on Fall risk assessment b) One or more fall s in the last year [facility] [employer] Work Phone: Tobacco use status HS a) Yes [facility] [employer] Work Phone: Vitamin B12, Serumon 023 Cobalamin (Vitamin B12) [Mass/Vol] 187 pg/mL below low threshold [phone] [facility] Work Phone: Vitamin D 25-Hydroxyon 02-09 25-hydroxyvitamin D3 [Mass/Vol] 46 ng/mL [facility] Work Phone: Comment on above: .DEFICIENCY: < 20 NG /MLINSUFFICIENCY: 20-29 NG/MLSUFFICIENCY: 30-100 NG/MLTHIS ASSAY ACCURATELY QUANTIFIES THE SUM OFVITAMIN D3, 25-HYDROXY AND VIT D2,25-HYDROXY. CHEMISTRYOrdered By: SYSTEM SYSTEM on 10-16-2022 Albumin [Mass/Vol] 4.0 g/dL Normal 3.3 - 5.0 gm/dL [facility] Albumin/Globulin [Mass ratio] 1.2 {ratio} Normal 1.1 - 2.2 [facility] ALP [Catalytic activity/Vol] 39 [iU]/d Normal 21 - 98 Int._Unit/L [facility] ALT No additional P-5'-P [Catalytic activity/Vol] 21 [iU]/d Normal 6 - 46 Int._Unit/L [facility] Anion gap [Moles/Vol] 13 mmol/L Normal 6 - 16 mEq/L [facility] AST [Catalytic activity/Vol] 19 [iU]/d Normal 5 - 43 Int._Unit/L [facility] Bilirubin [Mass/Vol] 0.7 mg/dL Normal 0.0 - 1 .1 mg/dL [facility] Bilirubin.direct [Mass/Vol] 0.1 mg/dL Normal 0.1 - 0.4 mg/dL [facility] Bilirubin.indirect [Mass or moles/Vol] 0.6 mg/dL Normal 0.1 - 0.9 mg/dL [facility] Calcium [Mass/Vol] 9.4 mg/dL Normal 8.9 - 11. 1 mg/dL [facility] Chloride [Moles/Vol] 107 mmol/L Normal 101 - 1 11 mmol/L [facility] Cholesterol [Mass/Vol] 168 mg/dL Normal 120 - 200 mg/dL [facility] Cholesterol in HDL [Mass/Vol] 30 mg/dL Invalid Interpretation Code [facility] Cholesterol in LDL [Mass/Vol] 115 mg/dL Normal <=129mg/dL [facility] Cholesterol in VLDL [Mass/Vol] 41 mg/dL High 7 - 40 mg/dL [facility] CO2 [Moles/Vol] 24 mmol/L Normal 21 - 31 mmol/L [facility] Creatinine [Mass/Vol] 0.7 mg/dL Normal 0.5 - 1.3 mg/dL [facility] GFR/1.73 sq M.predicted among blacks MDRD (S/P/Bld) [Vol rate/Area] mL/min/1.73 m2 Normal >=59mL/min/1 .73 m2 [facility] [place] Chem S GFR/1.73 sq M.predicted among non-blacks MDRD (S/P/Bld) [Vol rate/Area] mL/min/1.73 m2 Normal >=59mL/min/1 .73 m2 [facility] [place] Chem S Globulin (S) [Mass/Vol] 3.4 g/dL Normal 1.4 - 4.0 gm/dL [facility] [place] Remisol Glucose [Mass/Vol] 120 mg/dL Normal 55 - 199 mg/dL [facility] Potassium [Moles/Vol] 3.3 mmol/L Low 3.5 - 5.3 mmol/L [facility] Protein [Mass/Vol] 7.4 g/dL Normal 6.0 - 7.8 gm/dL [facility] [place] Remisol Sodium [Moles/Vol] 141 mmol/L Normal 135 - 145 mmol/L [facility] [place] Remisol Triglyceride [Mass/Vol] 205 mg/dL High <=149mg/dL [facility] [place] Remisol Urea nitrogen [Mass/Vol] 13 mg/dL Normal 5 - 21 mg/dL [facility] [place] Remisol Urea nitrogen/Creatinine [Mass ratio] 19 mg/mg Normal 10 - 20 [facility] [place] Remisol CHEMISTRYOrdered By: Michelle Hill on 10-16-2022 HbA1c (Bld) [Mass fraction] 6.0 % High <=5.9% [facility] [place] ChemAutoSS HEMATOLOGYOrdered By: Teresa webb on 10-16-2022 Erythrocyte distribution width (RBC) [Ratio] 13.7 % Normal 10.9 - 14.2 % [facility] [place] HemeAutoSS Hematocrit (Bld) [Volume fraction] 50.8 % High 34.0 - 46.0 % [facility] [place] HemeAutoSS Hemoglobin (Bld) [Mass/Vol] 17.0 g/dL High 12.0 - 16.0 gm/dL [facility] HemeAutoSS MCH (RBC) [Entitic mass] 34.0 pg Normal 27.0 - 34.0 pg [facility] [place] HemeAutoSS MCHC (RBC) [Mass/Vol] 33.5 g/dL Normal 31.4 - 36.0 gm/dL [facility] [place] HemeAutoSS MCV (RBC) [Entitic vol] 101.5 fL High 80.0 - 100.0 fL [facility] HemeAutoSS Platelet mean volume (Bld) [Entitic vol] 10.2 fL Normal 6.4 - 10.8 fL [facility] HemeAutoSS Platelets (Bld) [#/Vol] 207.0 E9/L Normal 150.0 - 500.0 E9/L [facility] HemeAutoSS RBC (Bld) [#/Vol] 5.0 E12/L Normal 4.3 - 5.9 E12/L [facility] HemeAutoSS WBC corrected for nucl RBC Auto (Bld) [#/Vol] 9.9 E9/L Normal 4.0 - 11.0 E9/L [facility] HemeAutoSS Consent for Treatmenton 09-08 Consent for Treatment [id number]:12 7 Normal [facility] Follow Up (Endocrinology)on 09-22-2022 Follow Up (Endocrinology) Diagnoses/Problems Assessed Type 2 diabetes mellitus, uncontrolled (250.02) 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 (V58.67) (Z79.4) PCOS (polycystic ovarian syndrome) (256.4) (E28.2) Multinodular goiter (nontoxic) (241.1) (E04.2) Benign essential hypertension (401.1) (I10) History of thyroid nodule (V12.29) (Z86.39) Orders Benign essential hypertension Basic Metabolic Panel; Status:Active; Requested for:[id number]; Perform:Lab Services - Lab To Draw (Blood Test); Due:[id number];Ordered; For:Benign essential hypertension; Ordered By:Oliver Auguste; History of thyroid nodule TSH WITH REFLEX TO FREE T4 IF ABNORMAL; Status:Active; Requested for:[id number]; Perform:Lab Services - Lab To Draw (Blood Test); Due:[id number];Ordered; For:History of thyroid nodule; Ordered By:Oliver Auguste; 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, Type 2 diabetes mellitus, uncontrolled Renew: FreeStyle Magnolia 2 Sensor; Change sensor every 14 days as directed Rx By: Oliver Auguste; Dispense: 30 Days ; #:2 Each; Refill: 11;For: 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, Type 2 diabetes mellitus, uncontrolled; ADDIS = N; Verified Transmission to [id number]; Last Updated By: System, Jackpocket; 09/22/2022 11:40:35 AM Hemoglobin A1C; Status:Active; Requested for:[id number]; Perform:Lab Services - Lab To Draw (Blood Test); Due:[id number];Ordered; For:skilled nursing current use of insulin, Type 2 diabetes mellitus, uncontrolled; Ordered By:Oliver Auguste; Patient Discussion/Summary Thank you for coming to Endocrinology! - we spoke for 15 min about your diabetes and low potassium Please continue to check your glucose 2 times a day (before 1st meal and at bedtime). Please continue taking lispro as per sliding scale before meals as needed. CONTINUE Trulicity 1.5mg once a week, you may start Tums for heartburn or nausea you may take sugar free metamucil for constipation if you experience these side effects continue Spironolactone as 50mg one tablet twice a day - recheck metabolic panel after 2 weeks of spironolactone restart Continue Atorvastatin 40mg once daily Return to clinic in 4 months, update labs again 1-2 weeks prior to our next appointment I will call you if your labs are abnormal Correction/Sliding Scale to be use with lispro before meals Glucose RangeINSULIN DOSE 0 - 149 0 150 - 175 1 176 - 200 2 201 - 225 3 226 - 250 4 251 - 275 5 276 - 300 6 301 - 325 7 326 - 350 8 351 - 375 9 376 - 400 10 Education Performed: Diet, Glycemic Targets Provider Impressions Emma is interested an engaged in the improvement of their glycemic control and overall wellness at this time. They were alert and engaged in all education conversation. They would benefit from the improved ease of glucose monitoring compliance seen with personal CGM device such as the Freestyle Magnolia - magnolia does not stay adhered to skin despite use of skin tac They would benefit from weight loss, CHF risk reduction seen in continued GLP1 therapy, also secondary to its primary benefit in reducing insulin requirements and improved glycemic control. Pt had good comprehension of insulin sliding scale information reviewed and discussed today. Chief Complaint An interactive audio and video telecommunication system which permits real time communications between the patient (at the originating site) and provider (at the distant site) was utilized to provide this telehealth service. Verbal consent was requested and obtained from HIEN LAM on this date, 09/22/2022 11:45 AM , for a telehealth visit. f/u DM2 History of Present IllnessHIEN LAM is being seen for routine follow-up for, type 2 diabetes. Date of last HbA1c: 05/01/22 and results: 6.8%. Current DM Regimen:. diet controlled. injectables. insulin. CGM. compliant with current DM regimen. Home Glucose Monitoring: Source: reported by patient. Frequency of Testing: Compliant with home glucose monitoring. Glucose Ranges: 80-175. No recent hypoglycemic episodes. Diet Plan: Type of Diet: Low carb Patient is non-compliant with diet plan. Cardiovascular: peripheral arterial disease. Renal: no nephropathy. Neurologic: peripheral neuropathy. 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 Endocrine:. no change in energy level. Eyes: no eye pain, no double vision and no change in vision. ENT: no hearing loss, no dental problems, no sore throat, no ch (more content not included)... Normal [facility] Office Visit (Neuro-General) on 09-17-2022 Follow-up visit Patient Discussion/Summary I had a long discussion about the role of medicine, effect and side effects of the medication including seizure risk and the precautions to be taken and depending on how she does I might make future recommendation when she comes back to see me in 6 months. Due to technical limitations of voice recognition and human error, this note may not accurately reflect the care of the patient. Diagnoses/Problems Assessed Chiari malformation type I (348.4) (G93.5) Seizure disorder (345.90) (G40.909) Diabetic neuropathy (250.60,357.2) (E11.40) Orders Seizure disorder Renew: Briviact 100 MG Oral Tablet; 2 po bid Renew: Fycompa 4 MG Oral Tablet; 1 po hs Chief Complaint F/U Neurologic Evaluation. Pt meds are doing good. History of Present Illness Hien Quevedo 47-year-old young lady who was seen today for follow-up of Chiari I malformation s/p surgery with syringomyelia and history of partial complex seizure with secondary generalization. 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 She is asymptomatic and today she describes of some drainage from the right ear. Today her physical and neurological examination was unremarkable. Like to continue all her medication the way she is taking and have discussed the precautions to be taken and depending on how she does I might make future recommendation when she comes back to see me in 6 months. I did review the medication list. Review of Systems ENMT: hearing loss, dizziness/vertigo and tinnitus. 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.67) (Z79.4) Mixed conductive and sensorineural hearing loss of right ear with restricted hearing of left ear (389.22) (H90.A31) Multinodular goiter (nontoxic) (241.1) (E04.2) Nausea and vomiting (787.01) (R11.2) PCOS (polycystic ovarian syndrome) (256.4) (E28.2) Preoperative clearance (V72.84) (Z01.818) Seizure disorder (345.90) (G40.909) Sensorineural hearing loss (SNHL) of left ear with restricted hearing of right ear (389.22) (H90.A22) Syringomyelia (336.0) (G95.0) Type 2 diabetes mellitus, uncontrolled (250.02) Unilateral headache (784.0) (R51.9) Vitamin D deficiency (268.9) (E55.9) Past Medical History Problems History of arthritis (V13.4) (Z87.39) History of asthma (V12.69) (Z87.09) History of bronchitis (V12.69) (Z87.09) History of chronic obstructive lung disease (V12.69) (Z87.09) History of depression (V11.8) (Z86.59) History of diabetes mellitus (V12.29) (Z86.39) History of gastroesophageal reflux (GERD) (V12.79) (Z87.19) History of mental disorder (V11.9) (Z86.59) History of sleep apnea (V13.89) (Z86.69) History of snoring (V15.89) (Z87.898) History of thyroid disorder (V12.29) (Z86.39) History of Lung trouble (786.00) (J98.4) Surgical History Problems History of Gallbladder Surgery History of Tonsillectomy With Adenoidectomy Family History Mother No pertinent family history Father No pertinent family history Social History Problems Cigarette smoker (305.1) (F17.210) No alcohol use Uses marijuana daily Allergies Medication Cymbalta Recorded By: Александр Rader; 10/13/2021 12:59:45 PM Lyrica CAPS Recorded By: Lexi Leyva; 10/14/2017 3:18:49 PM NonMedication Seafood Recorded By: Oliver Auguste; 10/23/2019 3:51:47 PM Current Meds Medication NameInstruction Amitiza 24 MCG Oral CapsuleTAKE 1 CAPSULE TWICE DAILY WITH FOOD. Aspirin 81 81 MG TBECTAKE 1 TABLET DAILY. Atorvastatin Calcium 40 MG Oral TabletTAKE 1 TABLET BY MOUTH EVERYDAY AT BEDTIME Briviact 100 MG Oral Tablet2 po bid. Fenofibrate 145 MG Oral TabletTAKE 1 TABLET DAILY. Spiced BitsStyle Magnolia 2 [place] DeviceUse reader as directed to check blood sugars 4 times a day. FreeStyle Magnolia 2 SensorChange sensor every 14 days as directed Fycompa 4 MG Oral Tablet1 po hs Gabapentin 600 MG Oral TabletTAKE 2 TABLETS 4 TIMES DAILY. Insulin Lispro (1 Unit Dial) 100 UNIT/ML Subcutaneous Solution Pen-injectorINJECT PER SLIDING SCALE (1U:50MG/DL GLUCOSE>150)AFTER MEALS AND AT BEDTIME, EXPECT UP TO 15U DAILY Lisinopril 5 MG Oral TabletTAKE 1 TABLET BY MOUTH EVERY DAY Ondansetron HCl - 8 MG Oral Tabletyou may take up to 3 times a day for nausea OneTouch Delica Plus [id number] blood sugars 4 times daily as directed OneTouch Verio In Vitro StripTest blood sugars 4 times a day as directed OneTouch Verio Reflect w/De (more content not included)... Normal [facility] Tobacco Screening.on Fall risk assessment b) One or more fall s in the last year -Ne[place] [address] Work Phone: Tobacco use status [facility] a) Yes -Neurology [facility] Work Phone: Progress Noteson 08-10-2022 Manager Collection Authentication Interface Message Text EMERGENCY TRIAGE, TREAT AND TRANSPORT (ET3) DOCUMENTATION OF TELEHEALTH VISIT Date / Time: 07/11/2022944 Name: Hien Lam : 1975 SSN: [id number] EMS Agency: [facility] [x] Verbal consent obtained [] Implied consent - patient with potential emergency medical condition requiring assessment of capacity to refuse treatment and/or transport VITAL SIGNS: see flowsheet documentation Reason for Telehealth Visit: Chief Complaint Patient presents with Chest symptoms/complaints History of Present Ilness: Pleasant 46-year-old female complaining of chest pain for the last few hours. Pain is midsternal radiating to the left arm and left jaw. Patient has a history of heart disease. She is followed at [facility]. She states he has mild shortness of breath. There is no fever, nausea, vomiting. Additional pertinent PMHx, SocHx, FamHx: Social history: Lives with Review of Systems: Denies the following: : headache, neck pain, cough, wheezing, abdominal pain, leg pain or swelling Exam: General: Awake, no distress ENT: normocephalic, atraumatic Pulmonary: No respiratory distress Cardiovascular: Well perfused Neurologic: Oriented to person, place, time and events. Moving all extremities equally. Psychiatric: Appropriate. Good insight and judgement. Medical Decision Makin year-old female with history of heart disease as well as chest pain with radiation today. Patient initially refused transport, stage I to go to hospital father weight. Explain note the patient that regardless of which hospital she went to if the symptoms represented a myocardial infarction she would need to be transported to the [facility] from either hospital. Patient consented to go to the closer hospital. No further questions from the patient or the EMS crew. Disposition Supported by Telehealth Assessment: ET3 transport decisions: Transport to hospital EMS Disposition Reported: Same ET3 Encounter Completed by: Santi Garcia MD Normal [facility] CREATININE, BLOOD (POC)on Creatinine [Mass/Vol] 0.60 mg/dL Abnormal 0.7 - 1.4 mg/dL [facility] eGFR (POCT) [facility] CTA ABD/PEL LOWER EXTREM W I VCONon 07-16-2022 [facility] BNPon 07-11-2022 Natriuretic peptide B (Bld) [Mass/Vol] 302.0 pg/mL Normal <=450.0 [facility] Comment on above: Performed By: #### C MADM, CMP, BNP #### [facility] [address] [place] [address] Dr. Paige Murillo CARDIAC VENKAT ADMITon 022 CK [Catalytic activity/Vol] 70 U/L Normal 26-192 [facility] Comment on above: Performed By: #### C MADM, CMP, BNP #### [facility] [address] [address] [address] Paige Murillo CK.MB [Mass/Vol] 1.06 ng/mL Normal <=3.60 [facility] Comment on above: Performed By: #### C MADM, CMP, BNP #### [facility] [address] [address] [address] Paige Murillo HSTROP 51.3 pg/mL Normal 4.0-51.3 [facility] Comment on above: Result Comment: CUT- OFF POINTS HAVE BEEN ESTABLISHED BASED ON THE FOURTH UNIVERSAL DEFINITIONS OF MYOCARDIAL INFARCTION. THE UPPER REFERENCE LIMIT (URL) OF TROPONIN, DEFINED THE 99TH PERCENTILE OF cTnI DISTRIBUTION IN A REFERENCE POPULATION, HAS BEEN CONFIRMED THE DECISION THRESHOLD FOR NH DIAGNOSIS. Performed By: #### C MADM, CMP, BNP #### [facility] [address] [place] [address] Dr. Paige Murillo TROY 35 ng/mL Normal 9-82 [facility] Comment on above: Performed By: #### C MADM, CMP, BNP #### [facility] [address] [place] [address] Dr. Paige Murillo CBC AUTO DIFFon 07-11-2022 BASO # 0.1 103/ul Normal 0.0-0.1 [facility] Comment on above: Performed By: #### C BC #### [facility] [address] [place] [address] Dr. Paige Murillo Basophils/100 WBC (Bld) 0.5 % Normal 0.2-2.0 [facility] Comment on above: Performed By: #### C BC #### [facility] [address] [place] [address] Dr. Paige Murillo EO # 0.2 103/ul Normal 0.0-0.7 [facility] Comment on above: Performed By: #### C BC #### [facility] [address] [place] [address] Dr. Paige Murillo Eosinophils/100 WBC (Bld) 1.9 % Normal 0.9-7.0 [facility] Comment on above: Performed By: #### C BC #### [facility] [address] [place] [address] Dr. Paige Murillo Erythrocyte distribution width (RBC) [Ratio] 13.2 % Normal 11.0-15.0 [facility] Comment on above: Performed By: #### C BC #### [facility] [address] [place] [address] Dr. Paige Murillo Hematocrit (Bld) [Volume fraction] 49.2 % Critically high 36.0-48.0 [facility] Comment on above: Performed By: #### C BC #### [facility] [address] [place] [address] Dr. Paige Murillo Hemoglobin (Bld) [Mass/Vol] 16.9 g/dL Critically high 12.0-16.0 [facility] Comment on above: Performed By: #### C BC #### [facility] [address] [place] [address] Dr. Paige Murillo IG # 0.02 10e3/ul Normal 0.00-0.03 [facility] Comment on above: Performed By: #### C BC #### [facility] [address] [place] [address] Dr. Paige Murillo IG % 0.2 % Normal 0.0-0.5 [facility] Comment on above: Performed By: #### C BC #### [facility] [address] [place] [address] Dr. Paige Murillo LYMPH # 3.0 103/ul Normal 1.2-3.8 [facility] Comment on above: Performed By: #### C BC #### [facility] [address] [place] [address] Dr. Paige Murillo Lymphocytes/100 WBC (Bld) 29.6 % Normal 20.5-60.0 [facility] Comment on above: Performed By: #### C BC #### [facility] [address] [place] [address] Dr. Paige Murillo MANUAL DIFF REQ NO Normal [facility] Comment on above: Performed By: #### C BC #### [facility] [address] [place] [address] Dr. Paige Murillo MCH (RBC) [Entitic mass] 34.3 pg Critically high 26.7-34.0 [facility] Comment on above: Performed By: #### C BC #### [facility] [address] [place] [address] Dr. Paige Murillo MCHC (RBC) [Mass/Vol] 34.3 g/dL Normal 29.9-35.2 [facility] Comment on above: Performed By: #### C BC #### [facility] [address] [place] [address] Dr. Paige Murillo MCV (RBC) [Entitic vol] 99.8 fL Critically high 81.0-99.0 [facility] Comment on above: Performed By: #### C BC #### [facility] [address] [place] [address] Dr. Paige Murillo MONO # 0.5 103/ul Normal 0.3-0.8 [facility] Comment on above: Performed By: #### C BC #### [facility] [address] [place] [address] Dr. Paige Murillo Monocytes/100 WBC (Bld) 4.7 % Normal 1.7-12.0 [facility] Comment on above: Performed By: #### C BC #### [facility] [address] [place] [address] Dr. Paige Murillo NEUT # 6.4 103/ul Normal 1.4-6.5 [facility] Comment on above: Performed By: #### C BC #### [facility] [address] [place] [address] Dr. Paige Murillo Neutrophils/100 WBC (Bld) 63.1 % Normal 43.0-75.0 [facility] Comment on above: Performed By: #### C BC #### [facility] [address] [place] [address] Dr. Paige Murillo Platelet mean volume (Bld) [Entitic vol] 11.2 fL Normal 9.5-13.5 [facility] Comment on above: Performed By: #### C BC #### [facility] [address] [place] [address] Dr. Paige Murillo PLT 259 103/ul Normal 150-450 [facility] Comment on above: Performed By: #### C BC #### [facility] [address] [place] [address] Dr. Paige Murillo RBC 4.93 106/ul Normal 4.20-5.40 [facility] Comment on above: Performed By: #### C BC #### [facility] [address] [place] [address] Dr. Paige Murillo WBC 10.1 103/ul Normal 4.0-11.0 [facility] Comment on above: Performed By: #### C BC #### [facility] [address] [address] [address] Paige Murillo Covid-19 PCR ([facility])on SARS-CoV-2 (COVID-19) RNA LOUISE+probe Ql (Unsp spec) Not detected Normal NOT DETECTED [facility] Comment on above: Result Comment: When diagnostic testing is negative, the possibility of a false negative should be considered in the context of a patient's recent exposures and the presence of clinical signs and symptoms consistent with SARS-CoV-2. This test is not yet approved or cleared by the [place] FDA. When there are no FDA-approved or cleared tests available, and other criteria are met, FDA can make tests available under an emergency access mechanism called an Emergency Use Authorization (EUA). The EUA for this test is supported by the [employer] Card Changer of Health and Human Service's declaration that circumstances exist to justify the emergency use of in vitro diagnostics for the detection and/or diagnosis of the virus that causes COVID-19. This EUA will remain in effect for the duration of the COVID-19 declaration justifying emergency of IVDs, unless it is terminated or revoked by the FDA (after which the test may no longer be used). Performed By: #### C VDTBH #### [facility] [address] [place] [address] Dr. Paige Murillo DRUG SCREEN RAPID (URINE)on 07-11-2022 AMP Negative Normal NEGATIVE [facility] Comment on above: Performed By: #### D RUGRPD #### [facility] [address] [place] [address] Dr. Paige Murillo BAR Negative Normal NEGATIVE [facility] Comment on above: Performed By: #### D RUGRPD #### [facility] [address] [place] [address] Dr. Paige Murillo BUP Negative Normal NEGATIVE [facility] Comment on above: Performed By: #### D RUGRPD #### [facility] [address] [place] [address] Dr. Paige Murillo BZO Negative Normal NEGATIVE [facility] Comment on above: Performed By: #### D RUGRPD #### [facility] [address] [address] [address] Paige Murillo JASSI Negative Normal NEGATIVE [facility] Comment on above: Performed By: #### D RUGRPD #### [facility] [address] [place] [address] Dr. Paige Murillo CUT-OFFS SEE BELOW Normal [facility] Comment on above: Result Comment: AMP (Amphetamine): 500ng/mL, BAR (Barbituates): 200 ng/mL, BZO (Benzodiazepines): 150 ng/mL, BUP (Buprenorphine): 10 ng/mL, JASSI (Cocaine): 150 ng/mL, mAMP (Methamphetamine): 500 ng/mL, MTD (Methadone): 200 ng/mL, OPI (Opiates): 100 ng/mL, OXY (Oxycodone): 100 ng/mL, PCP (Phencyclidine): 25 ng/mL, PPX (Propoxyphene): 300 ng/mL, THC (Cannabinoids): 50 ng/mL, TCA (Trycyclic Antidepressants): 300 ng/mL Performed By: #### D RUGRPD #### [facility] [address] [place] [address] Dr. Paige Murillo DRUG CUT HEADER DRUG CLASS TEST SYST EM CUT-OFF CONCENTRATIONS ARE FOLLOWS: Normal [facility] Comment on above: Performed By: #### D RUGRPD #### [facility] [address] [place] [address] Dr. Paige Murillo mAMP Negative Normal NEGATIVE [facility] Comment on above: Performed By: #### D RUGRPD #### [facility] [address] [place] [address] Dr. Paige Murillo MTD Negative Normal NEGATIVE [facility] Comment on above: Performed By: #### D RUGRPD #### [facility] [address] [place] [address] Dr. Paige Murillo OPI Negative Normal NEGATIVE [facility] Comment on above: Performed By: #### D RUGRPD #### [facility] [address] [place] [address] Dr. Paige Murillo OXY Negative Normal NEGATIVE [facility] Comment on above: Performed By: #### D RUGRPD #### [facility] [address] [address] [address] Paige Murillo PCP Negative Normal NEGATIVE [facility] Comment on above: Performed By: #### D RUGRPD #### [facility] [address] [address] [address] Paige Murillo PPX Negative Normal NEGATIVE [facility] Comment on above: Performed By: #### D RUGRPD #### [facility] [address] [address] [address] Paige Murillo TCA Negative Normal NEGATIVE [facility] Comment on above: Performed By: #### D RUGRPD #### [facility] [address] [place] [address] Dr. Paige Murillo THC Positive Abnormal NEGATIVE [facility] Comment on above: Performed By: #### D RUGRPD #### [facility] [address] [place] [address] Dr. Paige Murillo PROF 14(COMP METB)on 022 Albumin [Mass/Vol] 3.4 g/dL Normal 3.4-5.0 [facility] Comment on above: Performed By: #### C MADM, CMP, BNP #### [facility] [address] [place] [address] Dr. Paige Murillo Albumin/Globulin [Mass ratio] 1.0 {ratio} Normal [facility] Comment on above: Performed By: #### C MADM, CMP, BNP #### [facility] [address] [place] [address] Dr. Paige Murillo ALP [Catalytic activity/Vol] 46 U/L Normal 46-116 [facility] Comment on above: Performed By: #### C MADM, CMP, BNP #### [facility] [address] [place] [address] Dr. Paige Murillo ALT [Catalytic activity/Vol] 31 U/L Normal 14-59 [facility] Comment on above: Performed By: #### C MADM, CMP, BNP #### [facility] [address] [address] [address] Paige Murillo Anion gap [Moles/Vol] 15.3 mmol/L Normal Th [facility] Comment on above: Performed By: #### C MADM, CMP, BNP #### [facility] [address] [address] [address] Paige Murillo AST [Catalytic activity/Vol] 18 U/L Normal 15-37 [facility] Comment on above: Performed By: #### C MADM, CMP, BNP #### [facility] [address] [place] [address] Dr. Paige Murillo Bilirubin [Mass/Vol] 0.3 mg/dL Normal 0.2-1.0 [facility] Comment on above: Performed By: #### C MADM, CMP, BNP #### [facility] [address] [place] [address] Dr. Paige Murillo Calcium [Mass/Vol] 9.0 mg/dL Normal 8.5-10.1 [facility] Comment on above: Performed By: #### C MADM, CMP, BNP #### [facility] [address] [address] [address] Paige Murillo Chloride [Moles/Vol] 104 mmol/L Normal 98-107 [facility] Comment on above: Performed By: #### C MADM, CMP, BNP #### [facility] [address] [place] [address] Dr. Paige Murillo CO2 [Moles/Vol] 24.0 mmol/L Normal 21.0-32.0 [facility] Comment on above: Performed By: #### C MADM, CMP, BNP #### [facility] [address] [place] [address] Dr. Paige Murillo Creatinine [Mass/Vol] 0.84 mg/dL Normal 0.55-1.02 [facility] Comment on above: Performed By: #### C MADM, CMP, BNP #### [facility] [address] [address] [address] Paige Murillo EGFR-AF DANISH >60 Normal >=60 [facility] Comment on above: Performed By: #### C MADM, CMP, BNP #### [facility] [address] [address] [address] Paige Murillo EGFR-NON AF DANISH >60 Normal >=60 [facility] Comment on above: Performed By: #### C MADM, CMP, BNP #### [facility] [address] [address] [address] Paige Murillo Globulin (S) [Mass/Vol] 3.5 g/dL Normal [facility] Comment on above: Performed By: #### C MADM, CMP, BNP #### [facility] [address] [address] [address] Paige Murillo Glucose [Mass/Vol] 185 mg/dL Critically high 74-106 [facility] Comment on above: Performed By: #### C MADM, CMP, BNP #### [facility] [address] [place] [address] Dr. Paige Murillo Potassium [Moles/Vol] 3.3 mmol/L Critically low 3.5-5.1 [facility] Comment on above: Performed By: #### C MADM, CMP, BNP #### [facility] [address] [address] [address] Paige Murillo Protein [Mass/Vol] 6.9 g/dL Normal 6.4-8.2 [facility] Comment on above: Performed By: #### C MADM, CMP, BNP #### [facility] [address] [address] [address] Paige Murillo Sodium [Moles/Vol] 140 mmol/L Normal 136-145 [facility] Comment on above: Performed By: #### C MADM, CMP, BNP #### [facility] [address] [address] [address] Paige Murillo Urea nitrogen [Mass/Vol] 16.0 mg/dL Normal 7.0-18.0 [facility] Comment on above: Performed By: #### C MADM, CMP, BNP #### [facility] [address] [address] [address] Paige Murillo Urea nitrogen/Creatinine [Mass ratio] 19.0 mg/mg Normal [facility] Comment on above: Performed By: #### C MADM, CMP, BNP #### [facility] [address] [place] [address] Dr. Paige Murillo PROTIMEon 07-11-2022 INR Coag (PPP) [Relative time] 1.05 {INR} Normal [facility] Comment on above: Performed By: #### P T, PTT #### [facility] [address] [place] [address] Dr. Paige Murillo INR GUIDELINES SEE BELOW Normal [facility] Comment on above: Result Comment: JIAN RED INR: 2.0 - 3.0 CONDITIONS NOT LISTED BELOW 2.5 - 3.5 FOR PROSTHETIC HEART VALVE REPLACEMENT 2.5 - 3.5 RECURRENT THROMBOSIS Performed By: #### P T, PTT #### [facility] [address] [place] [address] Dr. Paige Murillo PT Coag (PPP) [Time] 11.3 s Normal 9.0-11.6 [facility] Comment on above: Performed By: #### P T, PTT #### [facility] [address] [place] [address] Dr. Paige Murillo PTTon 07-11-2022 aPTT Coag (Bld) [Time] 25.5 s Normal 22.3-36.2 [facility] Comment on above: Performed By: #### P T, PTT #### [facility] [address] [place] [address] Dr. Paige Murillo TROPONIN, HIGH SENSITIVITYon 07-11-2022 HSTROP 155.2 pg/mL Critically high 4.0-51.3 [facility] Comment on above: Result Comment: CUT- OFF POINTS HAVE BEEN ESTABLISHED BASED ON THE FOURTH UNIVERSAL DEFINITIONS OF MYOCARDIAL INFARCTION. THE UPPER REFERENCE LIMIT (URL) OF TROPONIN, DEFINED THE 99TH PERCENTILE OF cTnI DISTRIBUTION IN A REFERENCE POPULATION, HAS BEEN CONFIRMED THE DECISION THRESHOLD FOR [place] DIAGNOSIS. Performed By: #### H STROPN #### [facility] [address] [place] [address] Dr. Paige Murillo XR CHEST 1 Von 07-11-2022 XR CHEST 1 V EXAM: XR CHEST 1 V INDICATION: CHEST PAIN, UNSPECIFIED. COMPARISON: Chest radiograph 01/13/2015 TECHNIQUE: Single frontal view of the chest FINDINGS: Normal cardiomediastinal contours. Clear lungs. No pleural effusion or pneumothorax. No acute osseous abnormality. IMPRESSION: No acute cardiopulmonary process. 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 (V58.67) (Z79.4) Type 2 diabetes mellitus, uncontrolled (250.02) Benign essential hypertension (401.1) (I10) Hypokalemia (276.8) (E87.6) Orders Benign essential hypertension, Hypokalemia Renew: Spironolactone 50 MG Oral Tablet; take 1 tablet by mouth twice a day Rx By: Oliver Auguste; Dispense: 30 Days ; #:60 Tablet; Refill: 1;For: Benign essential hypertension, Hypokalemia; ADDIS = N; Verified Transmission to [id number]; Last Updated By: WittyParrot; 05/12/2022 2:09:53 PM Basic Metabolic Panel; Status:Active; Requested for:[id number]; Perform:Lab Services - Lab To Draw (Blood Test); Due:[id number];Ordered; For:Benign essential hypertension, Hypokalemia; Ordered By:Oliver Auguste; Patient Discussion/Summary Thank you for coming to Endocrinology! - we spoke for 25 min about your diabetes and low potassium Please continue to check your glucose 4 times a day (before each meal and at bedtime). - try skin tac with magnolia sensor Please continue taking lispro as per sliding scale three times a day before each meal. CONTINUE Trulicity 1.5mg once a week, you may start Tums for heartburn or nausea you may take sugar free metamucil for constipation if you experience these side effects RESTART Spironolactone as 50mg one tablet twice a day - recheck metabolic panel after 2 weeks of spironolactone restart Continue Atorvastatin 40mg once daily Return to clinic in 4 months, update labs again 1-2 weeks prior to our next appointment I will call you if your labs are abnormal Correction/Sliding Scale to be use with lispro before meals Glucose RangeINSULIN DOSE 0 - 149 0 150 - 175 1 176 - 200 2 201 - 225 3 226 - 250 4 251 - 275 5 276 - 300 6 301 - 325 7 326 - 350 8 351 - 375 9 376 - 400 10 Provider Impressions Emma is interested an engaged in the improvement of their glycemic control and overall wellness at this time. They were alert and engaged in all education conversation. They would benefit from the improved ease of glucose monitoring compliance seen with personal CGM device such as the Freestyle Magnolia They would benefit from weight loss, CHF risk reduction seen in GLP1 therapy, also secondary to its primary benefit in reducing insulin requirements and improved glycemic control. Pt had good comprehension of insulin sliding scale information reviewed and discussed today. Chief Complaint A telephone visit (audio only) between the patient (at the originating site) and the provider (at the distant site) was utilized to provide this telehealth service. Verbal consent was requested and obtained from HIEN LAM on this date, 05/12/2022 01:40 PM , for a telehealth visit. f/u DM2 History of Present IllnessHIEN LAM is being seen for routine follow-up for, type 2 diabetes. Date of last HbA1c: 05/01/22 and results: 6.8%. Current DM Regimen:. diet controlled. injectables. insulin. CGM. compliant with current DM regimen. Home Glucose Monitoring: Source: reported by patient. Frequency of Testing: Compliant with home glucose monitoring. Glucose Ranges: 80-175. No recent hypoglycemic episodes. Diet Plan: Type of Diet: Low carb Patient is non-compliant with diet plan. Cardiovascular: peripheral arterial disease. Renal: no nephropathy. Neurologic: peripheral neuropathy. weight 228lb up from 210lb last week, she sees swelling in feet and ankles, labs show lower potassium of 3.0 - we discussed plan to restart spironolactone 50mg twice a day for 2 weeks, then recheck labs to see if potassium comes back up diarrhea for several weeks since eating mostly liquid to avoid upset stomach she has been very stressed with her family and is looking for a new place to stay other than her parents' house. she had a big argument with her mom and step dad she is looking to have knee surgery to improve her ability to work - she has to f/u on her vascular physician in order to be cleared for knee surgery she wishes to come off of her SSRIs Review of Systems Constitutional: no fever, no chills, normal appetite, no recent weight gain, no recent weight loss and not feeling tired (fatigue). Endocrine:. no change in energy level. Eyes: no eye pain, no double vision and no change in vision. ENT: no hearing loss, no dental problems, no sore throat, no change in voice and as noted in HPI. Cardiovascular: no chest pain, no palpitations, no intermittent leg claudication and no lower extremity edema. Respiratory: no shortness of breath, no wheezing and no cough. Gastrointestinal: diarrhea, but no abdominal pain, no constipation, no nausea and no vomiting. Genitourinary: no dysuria, no incontinence and no urinary hesitancy. Musculoskeletal: no arthralgias, no myalgias, no muscle cramps, no joint swelling, no joint stiffness and no limb pain. Integumentary: no change in skin color, no skin lesions, no itching, no excessi (more content not included)... Normal JEDI MIND Tobacco Screening.on Fall risk assessment b) One or more fall s in the last year [facility] [address] Work Phone: Tobacco use status [facility] b) No [facility] [address] Work Phone: Tobacco Screening.on Fall risk assessment a) No falls within the last year [facility] Work Phone: Tobacco use status [facility] b) No [facility] Work Phone: Laboratory - Chemistry and C hemistry - challengeon 12-06-2021 Glucose [Mass/Vol] 289 mg/dL above high threshold 74 - 99 [facility] Work Phone: Glucose [Mass/Vol] 248 mg/dL above high threshold 74 - 99 [facility] Work Phone: Laboratory - Chemistry and C hemistry - challengeon 12-05-2021 Glucose [Mass/Vol] 205 mg/dL above high threshold 74 - 99 [facility] [place] [address] Work Phone: Glucose [Mass/Vol] 223 mg/dL above high threshold 74 - 99 [facility] [place] [address] Work Phone: Glucose [Mass/Vol] 220 mg/dL above high threshold 74 - 99 [facility] [place] [address] Work Phone: Glucose [Mass/Vol] 187 mg/dL above high threshold 74 - 99 [facility] [place] [address] Work Phone: Laboratory - Coagulationon 0 12-05-2021 aPTT Coag (PPP) [Time] Canceled [facility] [place] [address] Work Phone: Comment on above: Note new reference arie hernandez as of 10/07/2021 at 10:00am. INR Coag (PPP) [Relative time] Canceled [facility] [place] [address] Work Phone: PT Coag (PPP) [Time] Canceled [facility] [place] [address] Work Phone: Comment on above: Note new reference arie hernandez as of 10/07/2021 at 10:00am. Laboratory - Hematology and Cell countson 12-05-2021 Hematocrit (Bld) [Volume fraction] Canceled [facility] [place] [address] Work Phone: Hemoglobin (Bld) [Mass/Vol] Canceled [facility] [place] [address] Work Phone: Platelets (Bld) [#/Vol] Canceled [facility] [place] [address] Work Phone: RBC (Bld) [#/Vol] Canceled [facility] [place] [address] Work Phone: Magnesium, Serumon 2 Magnesium [Mass/Vol] 1.62 mg/dL See Below [facility] Work Phone: Comment on above: Reference Range: 1.6 0 - 2.40 No Panel Informationon 12-05 Canceled [facility] [employer] Work Phone: Renal Function Panelon 12-05 Albumin BCP dye [Mass/Vol] 4.4 g/dL 3.4 - 5.0 [facility] Work Phone: Anion gap [Moles/Vol] 17 mmol/L 10 - 20 [facility] [employer] Work Phone: Calcium [Mass/Vol] 9.3 mg/dL 8.6 - 10.6 [facility] Work Phone: Chloride [Moles/Vol] 96 mmol/L below low threshold 98 - 107 [facility] [employer] Work Phone: CO2 [Moles/Vol] 28 mmol/L 21 - 32 [facility] Work Phone: Creatinine [Mass/Vol] 0.62 mg/dL See Below [facility] Work Phone: Comment on above: Reference Range: 0.5 0 - 1.05 Glucose [Mass/Vol] 225 mg/dL above high threshold 74 - 99 [facility] Work Phone: Phosphate [Mass/Vol] 2.8 mg/dL 2.5 - 4.9 [facility] Work Phone: Comment on above: The performance yandel acteristics of phosphorus testing in heparinized plasma have been validated by the individual laboratory site where testing is performed. Testing on heparinized plasma is not approved by the FDA; however, such approval is not necessary. Potassium [Moles/Vol] 4.3 mmol/L 3.5 - 5.3 [facility] [employer] [address] Work Phone: Sodium [Moles/Vol] 137 mmol/L 136 - 145 [facility] Work Phone: Urea nitrogen [Mass/Vol] 15 mg/dL 6 - 23 [facility] [employer] Work Phone: Renal Function Panel >90 >90 [facility] Work Phone: Comment on above: CALCULATIONS OF CRISTIAN MATED GFR ARE PERFORMED USING THE 2020 CKD-EPI STUDY REFIT EQUATION WITHOUT THE RACE VARIABLE FOR THE IDMS-TRACEABLE CREATININE METHODS.https://jasn.asnjournals.org/content/early/ N.9527939275 CT Head without Contraston 0 12-04-2021 CT Head limited WO contrast Normal [facility] Work Phone: Coronavirus 2019 RNA by PCR, Screening Asymptomticon 12-04-2021 Coronavirus 2019 RNA by PCR, Screening Asymptomtic Not detected Normal See Below [facility] Work Phone: Comment on above: SOURCE: Nasal, Nasop haryngealReference Range: Not Detected.This test has received FDA Emergency Use Authorization (EUA) and has been verified by [facility] ([facility]). This test is only authorized for the duration of time that circumstances exist to justify the authorization of the emergency use of in vitro diagnostic tests for the detection of SARS-CoV-2 virus and/or diagnosis of COVID-19 infection under section 564(b)(1) of the Act, 21 U.S.C. 360bbb-3(b)(1), unless the authorization is terminated or revoked sooner. [facility] is certified under CLIA-88 as qualified to perform high complexity testing. Testing is performed in the [facility] located at [address] [place] [address].SARS-CoV-2/Flu/RSV Multiplex Test: Fact sheet for providers: https://www.fda.gov/media/010451/downloadFact sheet for patients: https://www.fda.gov/media/730389/download Laboratory - Chemistry and C hemistry - challengeon 12-04-2021 Glucose [Mass/Vol] 204 mg/dL above high threshold 74 - 99 [facility] [place] [address] Work Phone: Glucose [Mass/Vol] 205 mg/dL above high threshold 74 - 99 [facility] [place] [address] Work Phone: Glucose [Mass/Vol] 232 mg/dL above high threshold 74 - 99 [facility] [place] [address] Work Phone: CO2 (Bld) [Partial pressure] 54 mm[Hg] above high threshold 38 - 42 [facility] [place] [address] Work Phone: HCO3 (Bld) [Moles/Vol] 26.0 mmol/L See Below [facility] [place] [address] Work Phone: Comment on above: Reference Range: 22. 0 - 26.0 Oxygen (Bld) [Partial pressure] 235 mm[Hg] above high threshold 85 - 95 [facility] [place] [address] Work Phone: pH (Bld) 7.29 [pH] below low threshold See Below [facility] [place] [address] Work Phone: Comment on above: Reference Range: 7.3 8 - 7.42 Glucose [Mass/Vol] 209 mg/dL above high threshold 74 - 99 [facility] [place] [address] Work Phone: No Panel Informationon 12-04 -1.4 mmol/L -2.0 - 3.0 [facility] [place] [address] Work Phone: 100 % 94 - 100 [facility] [place] [address] Work Phone: 37.0 {degrees_C} [facility] [employer] Work Phone: Comment on above: NOTE: PATIENT RESULT S ARE NOT CORRECTED FOR TEMPERATURE. Complete Blood Count + Mary Beth lewis 11-20-2021 Basophils/100 WBC (Bld) 0.4 % 0.0 - 2.0 [facility] [employer] Work Phone: Erythrocyte distribution width (RBC) [Ratio] 13.2 % See Below [facility] [employer] Work Phone: [phone] Comment on above: Reference Range: 11. 5 - 14.5 Hematocrit (Bld) [Volume fraction] 56.3 % above high threshold See Below [facility] [employer] Work Phone: Comment on above: Reference Range: 36. 0 - 46.0 Hemoglobin (Bld) [Mass/Vol] 18.9 g/dL above high threshold See Below [facility] [employer] Work Phone: Comment on above: Reference Range: 12. 0 - 16.0 Lymphocytes/100 WBC (Bld) 33.1 % See Below [facility] [employer] Work Phone: Comment on above: Reference Range: 13. 0 - 44.0 MCHC (RBC) [Mass/Vol] 33.6 g/dL See Below [facility] [employer] Work Phone: Comment on above: Reference Range: 32. 0 - 36.0 MCV (RBC) [Entitic vol] 102 fL above high threshold 80 - 100 [facility] [employer] Work Phone: Monocytes/100 WBC (Bld) 7.2 % 2.0 - 10.0 [facility] [employer] Work Phone: Neutrophils/100 WBC (Bld) 56.6 % See Below [facility] [employer] Work Phone: Comment on above: Reference Range: 40. 0 - 80.0 Platelets (Bld) [#/Vol] 216 10*3/uL 150 - 450 [facility] [employer] Work Phone: RBC (Bld) [#/Vol] 5.51 {x10E12/L} above high threshold See Below [facility] [employer] [address] Work Phone: Comment on above: Reference Range: 4.0 0 - 5.20 WBC (Bld) [#/Vol] 11.0 10*3/uL 4.4 - 11.3 [facility] [employer] Work Phone: Complete Blood Count + Differential 0.0 {/100_WBC} 0.0-0.0 [facility] [employer] Work Phone: Complete Blood Count + Differential 0.04 {x10E9/L} See Below [facility] [employer] Work Phone: Comment on above: Reference Range: 0.0 0 - 0.10 Complete Blood Count + Differential 0.24 {x10E9/L} See Below [facility] [employer] Work Phone: Comment on above: Reference Range: 0.0 0 - 0.70 Complete Blood Count + Differential 0.79 {x10E9/L} See Below [facility] [employer] Work Phone: Comment on above: Reference Range: 0.1 0 - 1.00 Complete Blood Count + Differential 3.64 {x10E9/L} See Below [facility] [employer] Work Phone: Comment on above: Reference Range: 1.2 0 - 4.80 Complete Blood Count + Differential 6.24 {x10E9/L} See Below [facility] [employer] Work Phone: Comment on above: Reference Range: 1.2 0 - 7.70 Complete Blood Count + Differential 2.2 % 0.0 - 6.0 [facility] Work Phone: Complete Blood Count + Differential 0.5 % 0.0 - 0.9 [facility] Work Phone: Comment on above: Immature Granulocyte Count (IG) includes promyelocytes, myelocytes and metamyelocytes but does not include bands. Percent differential counts (%) should be interpreted in the context of the absolute cell counts (cells/L). Hemoglobin A1Con 11-20-2021 Glucose [Mass/Vol] 197 mg/dL MG-End ocrino logy-[facility] [employer] Work Phone: [phone] HbA1c (Bld) [Mass fraction] 8.5 % Abnormal [facility]ocrino log[facility] [employer] Work Phone: Comment on above: Diagnosis of Diabete s-Adults Non-Diabetic: < or = 5.6% Increased risk for developing diabetes: 5.7-6.4% Diagnostic of diabetes: > or = 6.5%. Monitoring of Diabetes Age (y) Therapeutic Goal (%) Adults: >18 <7.0 Pediatrics: 13-18 <7.5 7-12 <8.0 0- 6 7.5-8.5 [employer]. Diabetes Care 33(S1), Nov 2009. Laboratory - Blood bankon ABO group Nom (Bld) A MG-En docrino log-[facility] Work Phone: Blood group antibody screen Ql Negative [facility]ocrino logy-[facility] [employer] Work Phone: Rh immune globulin screen (Bld) [Interp] Positive MG-Endocri no logy-[facility] [employer] Work Phone: Laboratory - Chemistry and C hemistry - challengeon 11-20-2021 Anion gap [Moles/Vol] 15 mmol/L 10 - 20 MG- Endocrino logy-[facility] [employer] Work Phone: Calcium [Mass/Vol] 9.1 mg/dL 8.6 - 10.6 [facility] ocrino [facility] Work Phone: Chloride [Moles/Vol] 99 mmol/L 98 - 107 MG-E ndocrino logy-[facility] [employer] Work Phone: CO2 [Moles/Vol] 27 mmol/L 21 - 32 MG-Endocr jeffery logy-[facility] [employer] Work Phone: Creatinine [Mass/Vol] 0.95 mg/dL See Below [facility]- [facility]ino log[facility] [employer] Work Phone: Comment on above: Reference Range: 0.5 0 - 1.05 Glucose [Mass/Vol] 159 mg/dL above high threshold 74 - 99 [facility] [employer] Work Phone: Potassium [Moles/Vol] 4.9 mmol/L 3.5 - 5.3 MG- Endocrino logy-[facility] [employer] Work Phone: Sodium [Moles/Vol] 136 mmol/L 136 - 145 MG-End ocrino log-[facility] [employer] Work Phone: Urea nitrogen [Mass/Vol] 24 mg/dL above high threshold 6 - 23 [facility]ocrino logy-[facility] [employer] Work Phone: Laboratory - Coagulationon 0 11-20-2021 aPTT Coag (PPP) [Time] 27 s 26 - 39 [facility] log[facility] [employer] Work Phone: Comment on above: Note new reference arie hernandez as of 10/07/2021 at 10:00am.A HEMATOCRIT VALUE GREATER THAN 55% MAY LEADTO INACCURATE RESULTS IN COAGULATION TESTING. PATIENTS HAVING HEMATOCRIT VALUES >55%REQUIRE A SPECIAL COLLECTION TUBE FOR COAGULATION STUDIES. PLEASE CONTACT THELABORATORY AT [phone] FOR INSTRUCTIONS. INR Coag (PPP) [Relative time] 0.9 {INR} 0.9 - 1.1 [facility] log[facility] [employer] Work Phone: PT Coag (PPP) [Time] 10.8 s 9.8 - 13.4 [facility]E ndocrino log[facility] Work Phone: Comment on above: Note new reference arie hernandez as of 10/07/2021 at 10:00am.A HEMATOCRIT VALUE GREATER THAN 55% MAY LEADTO INACCURATE RESULTS IN COAGULATION TESTING. PATIENTS HAVING HEMATOCRIT VALUES >55%REQUIRE A SPECIAL COLLECTION TUBE FOR COAGULATION STUDIES. PLEASE CONTACT [facility] AT [phone] FOR INSTRUCTIONS.This is a corrected result. Previous value was 10.8, verified at 11/20/2021 17:50 MRSA Screenon 11-20-2021 Staphylococcus sp identified Org specific cx Nom (Unsp spec) [facility] [employer] Work Phone: No Panel Informationon 11-20 75 {mL/min/1.73m2} >90 [facility] ocrino [facility] Work Phone: Comment on above: CALCULATIONS OF CRISTIAN MATED GFR ARE PERFORMED USING THE 2020 CKD-EPI STUDY REFIT EQUATION WITHOUT THE RACE VARIABLE FOR THE IDMS-TRACEABLE CREATININE METHODS.https://jasn.asnjournals.org/content/early// N.2410903995 URINALYSIS WITH CULTURE IF I NDICATEDon 11-20-2021 Appearance (U) Canceled [facility] Work Phone: Color (U) Canceled [facility] Work Phone: Glucose Ql (U) Canceled [facility]oc[facility] no [facility] [employer] Work Phone: Ketones Ql (U) Canceled [facility]ocri no [facility] [place] [employer] Work Phone: Leukocyte esterase Test strip Ql (U) Canceled [facility] [employer] Work Phone: Protein (U) [Mass/Vol] Canceled [facility] [employer] Work Phone: RBC (U) [#/Vol] Canceled [facility]-Endocr jeffery logy[facility] Work Phone: Specific gravity (U) [Rel density] Canceled [facility] Work Phone: URINALYSIS WITH CULTURE IF INDICATED Canceled [facility]ocrin o [facility] Work Phone: Comment on above: Concentrations > = 2 0 mg/dL of ascorbic acid can be expected to cause strong interference in the reactions testing for glucose, nitrite and blood. It is recommended to discontinue Vitamin C administration and retest in 10 hours. Tobacco Screening.on Fall risk assessment b) One or more fall s in the last year [facility] Work Phone: Tobacco use status [facility] a) Yes [facility] Work Phone: Tobacco Screening. Yes MG-End ocrino logDiaphonics-[facility] Work Phone: Tobacco Screening.on Fall risk assessment b) One or more fall s in the last year -Neurology [facility] 201 Work Phone: Tobacco use status [facility] a) Yes -Neurology [facility] 201 Work Phone: C Reactive Protein, Serumon 09-09-2021 CRP [Mass/Vol] 0.16 mg/dL -Neurolo gy [facility] 201 Work Phone: Comment on above: REF VALUE< 1.00 Complete Blood Count + Diffe rentialon 09-09-2021 Basophils/100 WBC (Bld) 0.4 % 0.0 - 2.0 -Neurology [facility] 201 Work Phone: Erythrocyte distribution width (RBC) [Ratio] 14.2 % See Below [facility] Work Phone: Comment on above: Reference Range: 11. 5 - 14.5 Hematocrit (Bld) [Volume fraction] 53.5 % above high threshold See Below [facility] Work Phone: Comment on above: Reference Range: 36. 0 - 46.0 Hemoglobin (Bld) [Mass/Vol] 18.3 g/dL above high threshold See Below [place] [address] Work Phone: [phone] Comment on above: Reference Range: 12. 0 - 16.0 Lymphocytes/100 WBC (Bld) 29.9 % See Below [place] [address] Work Phone: [phone] Comment on above: Reference Range: 13. 0 - 44.0 MCHC (RBC) [Mass/Vol] 34.2 g/dL See Below [place] [address] Work Phone: [phone] Comment on above: Reference Range: 32. 0 - 36.0 MCV (RBC) [Entitic vol] 104 fL above high threshold 80 - 100 [place] [address] Work Phone: [phone] Monocytes/100 WBC (Bld) 7.1 % 2.0 - 10.0 [place] [address] Work Phone: [phone] Neutrophils/100 WBC (Bld) 60.2 % See Below [place] [address] Work Phone: Comment on above: Reference Range: 40. 0 - 80.0 Platelets (Bld) [#/Vol] 232 10*3/uL 150 - 450 [place] [address] Work Phone: [phone] RBC (Bld) [#/Vol] 5.15 {x10E12/L} See Below [place] [address] Work Phone: [phone] Comment on above: Reference Range: 4.0 0 - 5.20 WBC (Bld) [#/Vol] 12.3 10*3/uL above high threshold 4.4 - 11.3 [place] [address] Work Phone: [phone] Complete Blood Count + Differential 0.05 {x10E9/L} See Below [place] [address] Work Phone: Comment on above: Reference Range: 0.0 0 - 0.10 Complete Blood Count + Differential 0.23 {x10E9/L} See Below [place] [address] Work Phone: Comment on above: Reference Range: 0.0 0 - 0.70 Complete Blood Count + Differential 0.87 {x10E9/L} See Below [place] [address] Work Phone: Comment on above: Reference Range: 0.1 0 - 1.00 Complete Blood Count + Differential 3.68 {x10E9/L} See Below [place] [address] Work Phone: Comment on above: Reference Range: 1.2 0 - 4.80 Complete Blood Count + Differential 7.41 {x10E9/L} See Below [place] [address] Work Phone: Comment on above: Reference Range: 1.2 0 - 7.70 Complete Blood Count + Differential 1.9 % 0.0 - 6.0 [place] [address] Work Phone: Complete Blood Count + Differential 0.5 % 0.0 - 0.9 [place] [address] Work Phone: Comment on above: Immature Granulocyte Count (IG) includes promyelocytes, myelocytes and metamyelocytes but does not include bands. Percent differential counts (%) should be interpreted in the context of the absolute cell counts (cells/L). Coronavirus 2019 RNA by PCR, Symptomaticon 09-09-2021 Coronavirus 2019 RNA by PCR, Symptomatic Not detected Normal See Below [place] [address] Work Phone: Comment on above: SOURCE: Nasal, Nasop haryngealReference Range: Not Detected.This test has received FDA Emergency Use Authorization (EUA) and has been verified by [facility]. This test is only authorized for the duration of time that circumstances exist to justify the authorization of the emergency use of in vitro diagnostic tests for the detection of SARS-CoV-2 virus and/or diagnosis of COVID-19 infection under section 564(b)(1) of the Act, 21 U.S.C. 360bbb-3(b)(1), unless the authorization is terminated or revoked sooner. [facility] is certified under CLIA-88 as qualified to perform high complexity testing. Testing is performed in the [facility] laboratory located at [address] [place] [address].SARS-CoV-2/Flu/RSV Multiplex Test: Fact sheet for providers: https://www.fda.gov/media/375908/downloadFact sheet for patients: https://www.fda.gov/media/622502/download Cult, Bloodon 09-09-2021 Bacteria identified Cx Nom (Bld) [place] [address] Work Phone: Laboratory - Chemistry and C hemistry - challengeon 09-09-2021 Albumin BCP dye [Mass/Vol] 3.7 g/dL 3.4 - 5.0 [facility] Work Phone: ALP [Catalytic activity/Vol] 34 U/L 33 - 110 [place] [address] Work Phone: ALT With P-5'-P [Catalytic activity/Vol] 10 U/L 7 - 45 [place] [address] Work Phone: Comment on above: Patients treated wit h Sulfasalazine may generate falsely decreased results for ALT. Anion gap [Moles/Vol] 14 mmol/L 10 - 20 [facility] Work Phone: AST With P-5'-P [Catalytic activity/Vol] 12 U/L 9 - 39 [facility] Work Phone: Bilirubin [Mass/Vol] 0.4 mg/dL 0.0 - 1.2 [facility] Work Phone: Calcium [Mass/Vol] 8.5 mg/dL below low threshold 8.6 - 10.3 [place] [address] Work Phone: Chloride [Moles/Vol] 100 mmol/L 98 - 107 [facility] [place] [address] Work Phone: CO2 [Moles/Vol] 26 mmol/L 21 - 32 [facility]rol [place] [address] Work Phone: Creatinine [Mass/Vol] 1.26 mg/dL above high threshold See Below [facility] Work Phone: Comment on above: Reference Range: 0.5 0 - 1.05 Glucose [Mass/Vol] 198 mg/dL above high threshold 74 - 99 [facility] Work Phone: Potassium [Moles/Vol] 3.7 mmol/L 3.5 - 5.3 [facility] Work Phone: Protein [Mass/Vol] 6.3 g/dL below low threshold 6.4 - 8.2 [facility] Work Phone: Sodium [Moles/Vol] 136 mmol/L 136 - 145 [facility] Work Phone: Urea nitrogen [Mass/Vol] 29 mg/dL above high threshold 6 - 23 [facility] Work Phone: Laboratory - Coagulationon 11-09-2020 aPTT Coag (PPP) [Time] 26 s 25 - 35 [place] [address] Work Phone: Comment on above: THE APTT IS NO LONGE R USED FOR MONITORING UNFRACTIONATED HEPARIN THERAPY. FOR MONITORING HEPARIN THERAPY, USE THE HEPARIN ASSAY. INR Coag (PPP) [Relative time] 1.0 {INR} 0.9 - 1.1 [place] [address] Work Phone: PT Coag (PPP) [Time] 11.4 s See Below -N eurology [facility] Work Phone: Comment on above: Reference Range: 10. 1 - 13.3 MRI L Spine w/wo Contraston 09-09-2021 MR Lumbar spine WO and W contrast IT Normal [place] [address] Work Phone: MRI T Spine w/wo Contraston 09-09-2021 MR Thoracic spine WO and W contrast IT Normal [place] [address] Work Phone: No Panel Informationon 09-09 [email or web address] ?RetrieveTestByDateTime?P qnounhCN=[email or web address]&Date=0 12-19-2020&Time=19%3a33%3a 52%3a00&TestType=ECG&Site =11&OutputType=PDF&Ext=PD F MP-Neurology -[place] 201 Work Phone: Normal sinus rhythm MP-Ne urology -[place] 201 Work Phone: Borderline Normal MP-Neur ology -[place] 201 Work Phone: [phone] [facility]-Neurology -[place] 201 Work Phone: [phone] [facility]-Neurology -[place] 201 Work Phone: [phone] [facility]-Neurology -[place] 201 Work Phone: [phone] [facility]-Neurology -[place] 201 Work Phone: [phone] [facility]-Neurology -[place] 201 Work Phone: 11 1 [facility]-Neurology -[place] 201 Work Phone: [phone] [facility]-Neurology -[place] 201 Work Phone: [phone] [facility]-Neurology -[place] 201 Work Phone: [phone] [facility]-Neurology -[place] 201 Work Phone: [phone] MP-Neurology -[place] 201 Work Phone: [phone] [facility]-Neurology -[place] [address] Work Phone: [phone] [facility]-Neurology -[place] 201 Work Phone: [phone] [facility]-Neurology -[place] 201 Work Phone: 70 [phone] [facility]-Neurology -[place] [address] Work Phone: 56 {mL/min/1.73m2} Abnormal >60 MP-Arnel rology -[place] [address] Work Phone: Comment on above: CALCULATIONS OF CRISTIAN MATED GFR ARE PERFORMED USING THE MDRD STUDY EQUATION FOR THE IDMS-TRACEABLE CREATININE METHODS. CLIN CHEM 2007;53:766-72 46 {mL/min/1.73m2} Abnormal >60 [facility] Work Phone: Sedimentation Rate, Erythroc yteon 09-09-2021 ESR (Bld) [Velocity] 1 mm/h 0 - 20 -[facility] 201 Work Phone: Troponin I, Serumon 09-09-20 21 Troponin I.cardiac [Mass/Vol] ng/mL See Below [place] [address] Work Phone: Comment on above: Reference Range: 0.0 0 - 0.03LESS THAN 0.04 NG/ML: NEGATIVEREPEAT TESTING IN THREE TO SIX HOURSIF CLINICALLY INDICATED.0.04 - 0.5 NG/ML: CONSISTENT WITH POSSIBLECARDIAC DAMAGE AND POSSIBLE INCREASEDCLINICAL RISK.SERIAL MEASUREMENTS MAY HELP ASSESS EXTENT OFMYOCARDIAL DAMAGE.>0.5 NG/ML: CONSISTENT WITH CARDIAC DAMAGE,INCREASED CLINICAL RISK AND MYOCARDIALINFARCTION. SERIAL MEASUREMENTS MAY HELPASSESS EXTENT OF MYOCARDIAL DAMAGE..Note: Troponin I testing is performed using different testing methodology at [facility] than at other [facility]. Direct result comparisons should only be made within the same method. MRI Cervical without Contras ton 08-29-2021 MR Cervical spine WO contrast Normal [place] [address] Work Phone: Tobacco Screening.on 021 Fall risk assessment b) One or more fall s in the last year [place] [address] Work Phone: Tobacco use status [facility] a) Yes [place] [address] Work Phone: SURGICAL PATHOLOGYon 021 SURGICAL PATHOLOGY Specimen #: [id number] Submitting Physician: ROLY ISRAEL M.D. FINAL DIAGNOSIS A. 4 SLIDES ([id number]): Soft tissue, left lower back, excisional biopsy:- Lipoma with fat necrosis, see comment. SDB/GO/katya 06/27/2021 COMMENT Many thanks for sending in consultation this excisional biopsy from the left lower back of a 45-year-old woman. Histologic sections reveal lobules of mature fibroadipose tissue with areas of fat necrosis. The adipocyte nuclei are small and bland without atypia, hyperchromasia or increased nuclear size. This is an interesting case. The histomorphologic features are those of a lipoma with fat necrosis. Thank you for sending this case in consultation. Please call the Dermatopathology Consultation Service at [phone] with questions or if additional follow-up information becomes available regarding this patient. This case was reviewed in conjunction with the Dermatopathology Fellow, Dr. Madsen. Kiet Hunt M.D. (Electronic Signature) SPECIMEN SUBMITTED A: 4 SLIDES ([id number]) CLINICAL DATA None provided. Patient ID #: Date of Report: 06/30/2021 Date of Procedure: 06/27/2021 Date of Receipt: 06/27/2021 Submitted by: ROLY ISRAEL M.D. Location: Diagnostic interpretation performed at [facility], [address] [place] [address]. CLIA Number: [id number] Normal [facility] Reference Lab Comment on above: Performed By: #### S #### See report for performing lab information. MRI Brain w/wo Contraston MR Brain WO and W contrast IV Normal [facility] [employer] Work Phone: MR Brain WO and W contrast IV Please click on the link to view the study images Normal MG-Endocrino [facility] [place] [address] Work Phone: Laboratory - Chemistry and C hemistry - challengeon 05-29-2021 Albumin BCP dye [Mass/Vol] 4.1 g/dL 3.4 - 5.0 [facility] Work Phone: ALP [Catalytic activity/Vol] 35 U/L 33 - 110 [facility] Work Phone: ALT With P-5'-P [Catalytic activity/Vol] 12 U/L 7 - 45 [facility] Work Phone: Comment on above: Patients treated wit h Sulfasalazine may generate falsely decreased results for ALT. Anion gap [Moles/Vol] 14 mmol/L 10 - 20 [facility] Work Phone: AST With P-5'-P [Catalytic activity/Vol] 11 U/L 9 - 39 [facility] Work Phone: Bilirubin [Mass/Vol] 0.5 mg/dL 0.0 - 1.2 [facility] Work Phone: Calcium [Mass/Vol] 9.6 mg/dL 8.6 - 10.3 [facility] Work Phone: Chloride [Moles/Vol] 102 mmol/L 98 - 107 [facility] Work Phone: CO2 [Moles/Vol] 25 mmol/L 21 - 32 [facility] [place] Work Phone: Creatinine [Mass/Vol] 0.89 mg/dL See Below [facility] Work Phone: Comment on above: Reference Range: 0.5 0 - 1.05 Glucose [Mass/Vol] 152 mg/dL above high threshold 74 - 99 [place] [address] Work Phone: Potassium [Moles/Vol] 4.6 mmol/L 3.5 - 5.3 [place] [address] Work Phone: Protein [Mass/Vol] 7.0 g/dL 6.4 - 8.2 [facility] Work Phone: Sodium [Moles/Vol] 136 mmol/L 136 - 145 [place] [address] Work Phone: Urea nitrogen [Mass/Vol] 25 mg/dL above high threshold 6 - 23 [place] [address] Work Phone: No Panel Informationon 05-29 >60 >60 [place] [address] Work Phone: Comment on above: CALCULATIONS OF CRISTIAN MATED GFR ARE PERFORMED USING THE MDRD STUDY EQUATION FOR THE IDMS-TRACEABLE CREATININE METHODS. CLIN CHEM 2007;53:766-72 Tobacco Screening.on 021 Fall risk assessment b) One or more fall s in the last year [place] [address] Work Phone: Tobacco use status [facility] a) Yes [place] [address] Work Phone: Blood Pressure Cuff Sizeon 0 04-22-2021 Fall risk assessment a) No falls within the last year [facility]ocrino logy-[place] [address] Work Phone: Tobacco use status [facility] b) No [facility]ino logy-[place] [address] Work Phone: Blood Pressure Cuff Size Large [facility]ocrino logy-[place] [address] Work Phone: Hemoglobin A1Con 04-22-2021 Glucose [Mass/Vol] 169 mg/dL MG-End ocrino logy-[place] [address] Work Phone: HbA1c (Bld) [Mass fraction] 7.5 % MG-Endocrino logDiaphonics-[place] [address] Work Phone: Comment on above: Diagnosis of Diabete s-Adults Non-Diabetic: < or = 5.6% Increased risk for developing diabetes: 5.7-6.4% Diagnostic of diabetes: > or = 6.5%. Monitoring of Diabetes Age (y) Therapeutic Goal (%) Adults: >18 <7.0 Pediatrics: 13-18 <7.5 7-12 <8.0 0- 6 7.5-8.5 [place]. Diabetes Care 33(S1), Nov 2009. Adrenocorticotropic Hormone, Plasmaon 05-01-2020 Corticotropin (P) [Mass/Vol] 6.8 pg/mL below low threshold 7.2-63.3 MG-Endocrino [employer] Work Phone: Comment on above: INTERPRETIVE INFORMA TION: Adrenocorticotropic HormoneReference interval based on samples collected between 7 a.m. and 10 a.m. No reference intervals established for p.m. collections. Pediatric reference values are the same as adults (Acta Paediatr Scand 1981;70:341-345). This assay measures intact ACTH 1-39; some types of synthetic ACTH and ACTH fragments are not detected by this assay.Performed by [facility],[address] [place] [id number] [employer]bs[employer], Stefano Garcia MD, Lab. Director Cortisol A.M.on 05-01-2020 Cortisol [Mass or Moles/volume] in Serum or Plasma --AM peak specimen 19.9 ug/dL 5.0 - 20.0 [facility]ocrino [employer] Work Phone: DHEA Sulfate, Serumon 2019 DHEA-S [Mass/Vol] 164 ug/dL 12 - 379 MG-Endo crino [employer] Work Phone: Comment on above: MATURITY-BASED REFER ENCE RANGES: PUBERTAL (MOIRA) STAGE MALE FEMALE I 5 - 265 5 - 125 II 15 - 380 15 - 150 III 60 - 505 20 - 535 IV 65 - 560 35 - 485 V 165 - 500 75 - 530 Biotin interference may cause falsely elevated results. Patients taking a Biotin dose of up to 5 mg/day should refrain from taking Biotin for 24 hours before sample collection. Providers may contact their local laboratoryfor further information. Hemoglobin A1Con 05-01-2020 HbA1c (Bld) [Mass fraction] 7.9 % MG-Endocrino logy[facility] Work Phone: Comment on above: Diagnosis of Diabete s-Adults Non-Diabetic: < or = 5.6% Increased risk for developing diabetes: 5.7-6.4% Diagnostic of diabetes: > or = 6.5%. Monitoring of Diabetes Age (y) Therapeutic Goal (%) Adults: >18 <7.0 Pediatrics: 13-18 <7.5 7-12 <8.0 0- 6 7.5-8.5 [employer] [place]. Diabetes Care 33(S1), Nov 2009. HbA1c (Bld) [Mass fraction] 180 {MG/DL} [facility] [employer] Work Phone: MRI Sella w/wo Contraston MRI Sella w/wo Contrast Interpreted by: CHARISSA DAMON05/01/20 11:20MRN: [id number] Name: LAMBENNIE BABBE STUDY:MRI SELLA WO/W; 05/01/2020 9:50 am INDICATION:Headache, HTN, DM2, obesity, hypercortisolism on lab. COMPARISON:There are no available comparison MRI studies. ORDERING CLINICIAN:OLIVER AUGUSTE TECHNIQUE:High-resolution coronal T2 as well as pre and post gadolinium coronaland sagittal T1 weighted MRI images of the sella were obtained. Inaddition, high-resolution coronal dynamic MRI imaging immediatelyfollowing gadolinium administration was also performed. The patientreceived 20 mL of MultiHance gadolinium intravenously. FINDINGS:The pituitary gland is normal in overall size and configurationwithout evidence of pituitary macroadenoma. On the post gadoliniumMRI images, there is minimal nonspecific inhomogeneous enhancement ofthe normal sized pituitary gland. While a definite focal pituitarymicroadenoma is not identified, given the mild inhomogeneousenhancement, an underlying pituitary microadenoma can not be entirelyexcluded. The pituitary infundibulum is in the midline. Thesuprasellar/parasellar structures including the optic apparatus andcavernous sinuses are within normal limits. IMPRESSION:The pituitary gland is normal in overall size and configurationwithout evidence of pituitary macroadenoma. On the post gadoliniumMRI images, there is minimal nonspecific inhomogeneous enhancement ofthe normal sized pituitary gland. While a definite focal pituitarymicroadenoma is not identified, given the mild inhomogeneousenhancement, an underlying pituitary microadenoma can not be entirelyexcluded. The study was interpreted at [facility].Electronica lly signed by: CHARISSA DAMON 05/01/20 11:20 Normal MG-Endocrino logy-[facility] 1600 Work Phone: ANES POSTPROC EVALon 020 ANES POSTPROC EVAL HNO ID: [id number] Author: Ubaldo Mayen Service: ? Author Type: Anesthesiologist Type: Anesthesia Postprocedure Evaluation Filed: 02/12/2020 1:02 PM Note Text: POST ANESTHESIA EVALUATION NOTE : 1975 Procedure Summary Date: 02/12/20 Room / Location: GI03 / GI Anesthesia Start: 812 Anesthesia Stop: 857 Procedures: COLONOSCOPY (N/A Abdomen) EGD WITH BIOPSY (N/A Abdomen) Diagnosis: Abnormal weight loss Constipation, unspecified Rectal bleeding Epigastric pain Nausea and vomiting, intractability of vomiting not specified, unspecified vomiting type Early satiety (Abnormal weight loss [R63.4]) (Constipation, unspecified [K59.00]) (Rectal bleeding [K62.5]) (Epigastric pain [R10.13]) (Nausea and vomiting, intractability of vomiting not specified, unspecified vomiting type [R11.2]) (Early satiety [R68.81]) Surgeon: Ranjit Treadwell Responsible Provider: Ubaldo Mayen Anesthesia Type: MAC ASA Status: 3 Anesthesia Type: MAC Last vitals Vitals Value Taken Time BP 130/74 02/12/2020 9:36 AM Temp 36 ?C (96.8 ?F) 02/12/2020 9:36 AM Pulse 73 02/12/2020 9:15 AM HR SpO2 65 02/12/2020 9:36 AM Resp 16 02/12/2020 9:36 AM SpO2 100 % 02/12/2020 9:36 AM Post Anesthesia Patient Status Patient Evaluation: PACU. PACU/ICU Patient Condition: stable. Neurological Status: aware and responsive. Pulmonary Status: breathing comfortably on room air . Airway Control: returned to baseline unsupported. Cardiovascular Status: stable. Pain Management: clinically adequate. Postoperative Hydration: acceptable. Intraoperative Events: no significant anesthesia events Anesthetic Observations: no significant anesthetic observations Recommendation: continue current plan of care. SIGNATURE: Ubaldo Mayen MD PATIENT NAME: Hien Lam DATE: February 12, 2020 TIME: 1:02 PM CSN: [id number] [facility] ANES PRE-OPon 02-12-2020 ANES PRE-OP HNO ID: [id number] Author: Jackie Conner Service: ? Author Type: Nurse Loan Processor Type: Anesthesia Preprocedure Evaluation Filed: 02/12/2020 7:50 AM Note Text: ANESTHESIOLOGY DAY OF SURGERY NOTE : 1975 Procedure(s) (LRB): COLONOSCOPY (N/A) EGD (N/A) Surgeon(s): Ranjit Treadwell Estimated body mass index is 35.5 kg/m? as calculated from the following: Height as of 02/09/20: 165.7 cm (5' 5.25 ). Weight as of 02/09/20: 97.5 kg (215 lb). Most recent hematocrit and potassium results: Hematocrit 50.5 11/19/2018 Potassium 4.4 02/09/2020 Relevant Problems ANESTHESIA (+) Sleep apnea CARDIO (+) Aortoiliac occlusive disease (HCC) (+) Hypertension NEURO-PSYCH (+) H/O ETOH abuse (+) Seizure (HCC) PULMONARY (+) COPD (chronic obstructive pulmonary disease) (HCC) (+) Chronic obstructive lung disease (HCC) (+) Other emphysema (HCC) (+) Sleep apnea Patient in non compliant with CPAP and seizure meds. I - PHYSICAL EVALUATION AIRWAY Patient intubated: No. Tracheostomy tube not present Mallampati: I. TM distance: >3 FB. Neck ROM: full ROM without neurological symptoms. Mouth opening: adequate. Short neck: no. Thick neck: no DENTAL Dental findings: edentulous. II - ANESTHESIA PLAN ASA Score: 3 Anesthetic Plan: MAC The patient is a current smoker. NPO Status: adequate Monitoring plan: standard ASA. Postoperative analgesic plan: parenteral or oral opioids. Anesthetic Risks, Benefits, Alternatives, Personnel Discussed. Consent obtained from: patient. Significant changes in the patient condition since the History and Physical, not otherwise documented in primary service progress note: no. Potential Anesthesia issues that may suggest increased risk of complications or contractions to planned procedure: none. No vitals data found for the desired time range. No current facility-administered medications on file as of 02/12/2020. Outpatient Medications as of 02/12/2020 Medication Sig - spironolactone (ALDACTONE) 25 mg tablet Take 75 mg by mouth once daily. - tiotropium (SPIRIVA RESPIMAT) 2.5 mcg/actuation inhaler Inhale 2 Puffs as instructed once daily. - aspirin, enteric coated (ECOTRIN LOW STRENGTH) 81 mg EC tablet Take 1 tablet by mouth once daily. - ertugliflozin 5 mg tab Take 5 mg by mouth once daily. - gabapentin (NEURONTIN) 800 mg tablet Take 900 mg by mouth four times daily. - topiramate (TOPAMAX) 100 mg tablet Take 100 mg by mouth once daily. - insulin glargine (BASAGLAR KWIKPEN U-100 INSULIN) 100 unit/mL (3 mL) inpn Inject 80 Units subcutaneously daily at bedtime. - exenatide (BYDUREON) 2 mg / 0.65 ml subcutaneous pen injector Inject 2 mg subcutaneously once each week. - pioglitazone (ACTOS) 15 mg tablet Take 15 mg by mouth once daily. - insulin 70/30 NPH/regular units/mL (NOVOLIN 70-30 FLEXPEN U-100) 100 unit/mL (70-30) inpn Inject subcutaneously daily with breakfast. - cholecalciferol, Vitamin D3, (VITAMIN D3) 50,000 unit cap capsule Take 50,000 Units by mouth twice a week. - traMADol (ULTRAM) 50 mg tablet Take 50 mg by mouth every 6 hours as needed. - ALBUTEROL INHALATION Inhale as instructed. - pantoprazole DR (PROTONIX) 40 mg tablet Take 40 mg by mouth twice daily. - sucralfate (CARAFATE) 1 gram tablet Take 1 g by mouth four times daily as needed. - budesonide-formoterol (SYMBICORT) 160-4.5 mcg/actuation inhaler Inhale 2 Puffs as instructed twice daily. - triamcinolone acetonide (NASAL ALLERGY) 55 mcg nasal inhaler Use 2 Sprays in the nose once daily. - albuterol HFA (VENTOLIN HFA) 90 mcg/actuation inhaler Inhale 2 Puffs as instructed. - fenofibrate nanocrystallized (TRICOR) 145 mg tablet Take 145 mg by mouth once daily. - atorvastatin (LIPITOR) 20 mg tablet Take 20 mg by mouth once daily. - lisinopril (ZESTRIL, PRINIVIL) 10 mg tablet Take 5 mg by mouth once daily. - insulin aspart U-100 (NOVOLOG FLEXPEN U-100 INSULIN) 100 unit/mL inpn Inject 30 Units subcutaneously three times daily before meals. Taking 1-3 units daily I have interviewed and examined the patient. I have reviewed the medical record and/or the pre-anesthesia evaluation, pertinent labs, and test results. This contains updated information obtained within 48 hours of Surgery/Procedure. SIGNATURE: Jackie Conner APRN.BALLISTICS TESTER PATIENT NAME: Hien Lam DATE: February 12, 2020 TIME: 7:47 AM CSN: [id number] [facility] NURSING PROGon 02-12-2020 NURSING PROG HNO ID: [id number] Author: Clementine GambinoRn) FRANCESCA Suarez Service: ? Author Type: Registered Nurse Type: Nursing Progress Note Filed: 02/12/2020 9:50 AM Note Text: 0940 pt given written and verbal dc instructions. Pt verbalized understanding. [facility] PT EDon 02-12-2020 PT ED HNO ID: [id number] Author: Wilma GambinoRn) FRANCESCA Knutson Service: Nursing Author Type: Registered Nurse Type: Patient Education Filed: 02/12/2020 7:45 AM Note Text: PATIENT EDUCATION TOPIC: PROCEDURE / SURGERY: EGD/Colonoscopy PATIENT NAME: Hien Lam PATIENT LOCATION: [facility] ENDO POOL/[facility] ENDO POOL READINESS TO LEARN COGNITIVE ABILITY: Alert and oriented MOTIVATION TO LEARN: Interested FAMILY SUPPORT: Unable to assess - Family not present INSTRUCTION PROVIDED TO: Patient PATIENT LEARNS BEST BY: Verbal Instruction FACTORS AFFECTING LEARNING: None PHYSICAL LIMITATIONS AFFECTING LEARNING: None LEARNING RESPONSE DIAGNOSIS: ADULT: Abdominal pain, bloating PATIENT/FAMILY RESPONSE: Verbalizes understanding of: procedures METHOD OF INSTRUCTION: Verbal instruction FOLLOW-UP PLAN: Complete - No need for follow-up INSTRUCTIONAL AIDS USED: NA SUPPLEMENTAL MATERIAL PROVIDED TO PATIENT: None REFERRAL (RECOMMENDATION): None Electronically Signed By: Wilma Knutson RN [facility] SURGICAL PATHOLOGYon SURGICAL PATHOLOGY Specimen originated from [facility] Specimen #: [id number] Submitting Physician: RANJIT AUSTIN DO FINAL DIAGNOSIS 1. Small bowel, biopsy (A) - Small bowel mucosa with no diagnostic alteration. - No evidence of celiac disease. 2. Stomach, biopsy (B) - Gastric antral and body-type mucosa with no diagnostic alteration. - Negative for H. pylori organisms on routine stain. DANIELA/FABIO/rw 02/13/2020 Corey Blanchard M.D. (Electronic Signature) SPECIMEN SUBMITTED A: SMALL BOWEL, BIOPSY B: GASTRIC, BIOPSY CLINICAL DATA ABNORMAL WEIGHT LOSS; CONSTIPATION, UNSPECIFIED; RECTAL BLEEDING; EPIGASTRIC PAIN; NAUSEA AND VOMITING, INTRACTABILITY OF VOMITING NOT SPECIFIED, UNSPECIFIED VOMITING TYPE; EARLY SATIETY; ABDOMINAL PAIN, BLOATING; EGD; COLD BIOPSIES GROSS DESCRIPTION A. Received in formalin are two pieces of bains, soft tissue aggregating to 0.5 x 0.2 x 0.1 cm. Totally submitted in one cassette. B. Received in formalin are two pieces of bains, soft tissue aggregating to 0.7 x 0.2 x 0.1 cm. Totally submitted in one cassette. Gross examination performed at [facility], [address] [place] [address] FF 02/12/2020 5:21:58 PM Date of Report: 02/13/2020 Date of Procedure: 02/12/2020 Date of Receipt: 02/12/2020 Submitted by: RANJIT AUSTIN DO Location: [facility] Diagnostic interpretation performed at [facility], [address] [place] [address], [place] [id number]. [place] Number: [id number] [facility] HOSPon 02-01-2020 HOSP Patient:Shanta Lam MRN: Height:5' 5.25 (1.657 m) Weight:215 lb (97.523 kg) Outpatient Medications as of 02/12/20: valACYclovir (VALTREX) 500 mg tablet montelukast (SINGULAIR) 10 mg tablet ertugliflozin (STEGLATRO) 5 mg tab spironolactone (ALDACTONE) 25 mg tablet tiotropium (SPIRIVA RESPIMAT) 2.5 mcg/actuation inhaler aspirin, enteric coated (ECOTRIN LOW STRENGTH) 81 mg EC tablet ertugliflozin 5 mg tab gabapentin (NEURONTIN) 800 mg tablet topiramate (TOPAMAX) 100 mg tablet insulin glargine (BASAGLAR KWIKPEN U-100 INSULIN) 100 unit/mL (3 mL) inpn exenatide (BYDUREON) 2 mg / 0.65 ml subcutaneous pen injector pioglitazone (ACTOS) 15 mg tablet insulin 70/30 NPH/regular units/mL (NOVOLIN 70-30 FLEXPEN U-100) 100 unit/mL (70-30) inpn cholecalciferol, Vitamin D3, (VITAMIN D3) 50,000 unit cap capsule traMADol (ULTRAM) 50 mg tablet ALBUTEROL INHALATION pantoprazole DR (PROTONIX) 40 mg tablet sucralfate (CARAFATE) 1 gram tablet budesonide-formoterol (SYMBICORT) 160-4.5 mcg/actuation inhaler triamcinolone acetonide (NASAL ALLERGY) 55 mcg nasal inhaler albuterol HFA (VENTOLIN HFA) 90 mcg/actuation inhaler fenofibrate nanocrystallized (TRICOR) 145 mg tablet atorvastatin (LIPITOR) 20 mg tablet lisinopril (ZESTRIL, PRINIVIL) 10 mg tablet insulin aspart U-100 (NOVOLOG FLEXPEN U-100 INSULIN) 100 unit/mL inpn Admission/Clinic Administered Medications as of 02/12/20: Patient has no admission medications. Problem List: Seizure (HCC) [R56.9] Nicotine use disorder, F17.2 [F17.200] Headache disorder [R51] Neuropathy (HCC) [G62.9] Uncontrolled type 2 diabetes mellitus with peripheral neuropathy (HCC) [E11.42, E11.65] High blood cholesterol [E78.00] Hypertension [I10] Thyroid nodule [E04.1] Irregular menses [N92.6] Morbid obesity (HCC) [E66.01] Other emphysema (HCC) [J43.8] Chronic obstructive lung disease (HCC) [J44.9] Depression [F32.9] Diabetes mellitus (HCC) [E11.9] Type 2 diabetes mellitus without complication (HCC) [E11.9] Hypercholesterolemia [E78.00] Chronic midline low back pain with bilateral sciatica [M54.41, M54.42, G89.29] Aortoiliac occlusive disease (HCC) [I74.09] Atherosclerosis of 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 Telephone PACC appointment has not bee completed at this time. She states she will be available to an appointment tomorrow or Wednesday and she will bring contact information for medical records as she was recently admitted at an outside hospital for respiratory failure. Thank you, Argelia Anne PA-C PACC Argelia Anne PA-C 02/07/2020 3:04 PM Edited Assessment:is not currently on any medication preventatively for. Previous Version Progress Notes ([facility]): Zari Gan Lambert 02/07/2020 2:35 PM Signed Patient calls stating she has not be contacted by PAT for pulmonary function testing. She is scheduled for a colonoscopy/EGD under MAC at [facility] on 02/12/2020. Contacted PAT. Anesthesia Tech states patient was not contacted because the procedure is elective and not considered emergent. Informed computer processing scheduler that Dr. Austin is requesting patient have PAT and PFTs. Anesthesia Tech states she will send a message to the PACC physician pool who will review chart and determine if PAT is needed. Spoke with patient. She is aware she should expect a call from PAT in the following day or two. Patient states she saw her inspector health care facilities, Brianna Kamara DO, who informed patient her lungs sound good and x-rays look good . Patient states she is not using her inhalers because she has been feeling well. States Dr. Kamara prescribed her Singulair to help wean her off of her inhalers. Dr. Kamara is with [facility] in [place], [place], phone number [phone]. Patient is questioning if PFTs are still needed. Please review. Zari Gaudencio Lambert Zari Gan Lambert 02/07/2020 3:48 PM Signed Received hospital report and office note from Dr. Kamara's office. Will have medical records scan into patient's chart. Patient is scheduled for PAT on 02/09/2020. Zarimat Austin DO 02/07/2020 4:10 PM Signed Reviewed. Lets scan into her chart so available to be reviewed for her PAT virtual visit. Thanks cl Clementine Sanches RN 02/08/2020 9:54 AM Signed It's scanned under scanned documents and you should be able to review it. Thank you Clementine Austin DO 02/08/2020 10:32 AM Signed Thanks cl [facility] NM GASTRIC EMPTYING SOLIDon 01-30-2020 NM GASTRIC EMPTYING SOLID * * *Final Report* * * DATE OF EXAM: Jan 30 2020 12:18PM [facility] 0017 - NM GASTRIC EMPTYING SOLID / PROCEDURE REASON: multiple diagnoses * * * * Physician Interpretation * * * * SOLID MEAL GASTRIC EMPTYING STUDY: CLINICAL HISTORY: Early satiety. Nausea. Vomiting. To assess for abnormal gastric emptying of a solid meal. TECHNIQUE: 1.2 mCi Tc-99m sulfur colloid was given orally in a meal consisting of 4 oz Egg Beaters, 2 piece(s) toast, 30g strawberry jam, and 8 oz water, consumed over 5 to 10 minutes. FINDINGS: Solid study demonstrates 69% retention at 1hr, 30% retention at 2hr, and 0% retention at 4hr (normal emptying is 37-90% retention at 1hr, 30-60% retention at 2hr, and 0-10% retention at 4hr). There is no accelerated emptying of gastric contents, with 69% retention at 1hr (rapid emptying is <30% retention at 1hr). IMPRESSION: NORMAL RATE OF GASTRIC EMPTYING OF SOLID MEAL. College Professor: LISA Transcribe Date/Time: Jan 30 2020 12:23P Dictated by : PALLAVI EDMONDS MD This examination was interpreted and the report reviewed and electronically signed by: PALLAVI EDMONDS MD on Jan 30 2020 12:24PM EST [id number] [facility] PROGRESSon 01-30-2020 PROGRESS HNO ID: [id number] Author: January Link (Rt) Service: Radiology Author Type: Pilot Control Operator Helper Type: Progress Notes Filed: 01/30/2020 8:00 AM Note Text: RADIOLOGY SERVICE PROGRESS NOTE SERVICE DATE: 01/30/2020 SERVICE TIME: 7:27 AM PATIENT IDENTITY VERIFICATION COMPLETED USING TWO (2) STANDARD IDENTIFIERS: Name and Date of confirmed by patient verbally PATIENT GENDER DATA: .female : No status: No ALLERGIES: Reviewed and unchanged MEDICATIONS REVIEWED: Yes PATIENT RELEVANT IMPLANT DATA REVIEWED: Not Applicable CREATININE: Creatinine Date Value Ref Range Status 11/17/2018 0.58 0.58 - 0.96 mg/dL Final eGFR-All Other Races Date Value Ref Range Status 11/17/2018 >60 . Final Comment: eGFR (Estimated GFR) Units of measure: mL/min/1.73 meters squared eGFR is derived from the reexpressed MDRD Study equation using the following parameters: serum creatinine, age, gender and race. The creatinine assay has been calibrated to be traceable to IDMS. An eGFR <60 mL/min/1.73m2 for >3 months is consistent with chronic kidney disease. Refer to KDOQI guidelines for clinical interpretation. In patients with unstable renal function, e.g. those with acute kidney injury, the eGFR may not accurately reflect actual GFR. eGFR- Date Value Ref Range Status 11/17/2018 >60 Final P.O.C.T. RESULTS: N/A January 30, [address] PERFORMED: No IV SITE: NM only - not applicable, oral or physician administered agents given to patient POST EXAM PIV STATUS: Not applicable PROCEDURE TYPE: NM GET: 1.2 mCi Tc99m SULFUR COLLOID was administered orally via 4 ounces of Egg Beaters,2 pieces of toast, 1 ounce of jelly with 8 ounces of water orally ADMINISTRATION TIME: 07:45 PATIENT DISCHARGED TO: Ambulatory patient, left [place] department area. A Diagnostic radioactive procedure has taken place, with no further precautions necessary other than routine body substance precautions. More information regarding radiation safety can be found using this link: [email or web address] SIGNATURE: RT Fariba (N), [facility] PATIENT NAME: Hien Lam DATE: January 30, 2020 TIME: 7:27 AM PAGER/CONTACT #: [facility] Hemoglobin A1Con 01-16-2020 HbA1c (Bld) [Mass fraction] 160 {MG/DL} [facility] [employer] Work Phone: HbA1c (Bld) [Mass fraction] 7.2 % [facility] [employer] Work Phone: Comment on above: Diagnosis of Diabete s-Adults Non-Diabetic: < or = 5.6% Increased risk for developing diabetes: 5.7-6.4% Diagnostic of diabetes: > or = 6.5%. Monitoring of Diabetes Age (y) Therapeutic Goal (%) Adults: >18 <7.0 Pediatrics: 13-18 <7.5 7-12 <8.0 0- 6 7.5-8.5 [place] [employer]. Diabetes Care 33(S1), Nov 2009. Metabolic Panelon 01-16-2020 Anion gap [Moles/Vol] 16 mmol/L 10 - 20 [facility] [address] Work Phone: Calcium [Mass/Vol] 9.6 mg/dL 8.6 - 10.6 [facility] [address] Work Phone: Chloride [Moles/Vol] 105 mmol/L 98 - 107 [facility]E ndocrino logy[facility] Work Phone: CO2 [Moles/Vol] 18 mmol/L below low threshold 21 - 32 [facility] [address] Work Phone: Creatinine [Mass/Vol] 0.79 mg/dL See Below [facility] [address] Work Phone: Comment on above: Reference Range: 0.5 0 - 1.05 Glucose [Mass/Vol] 158 mg/dL above high threshold 74 - 99 [facility] [address] Work Phone: Potassium [Moles/Vol] 5.3 mmol/L 3.5 - 5.3 [facility] Work Phone: Sodium [Moles/Vol] 134 mmol/L below low threshold 136 - 145 [facility] Work Phone: Urea nitrogen [Mass/Vol] 32 mg/dL above high threshold 6 - 23 [facility] [address] Work Phone: Otheron 01-16-2020 >60 >60 [facility] [address] Work Phone: Comment on above: CALCULATIONS OF CRISTIAN MATED GFR ARE PERFORMED USING THE MDRD STUDY EQUATION FOR THE IDMS-TRACEABLE CREATININE METHODS. CLIN CHEM 2007;53:766-72 PROGRESSon 01-05-2020 PROGRESS HNO ID: [id number] Author: Constance GambinoRtCynthia Figueroa Service: Radiology Author Type: Pilot Control Operator Helper Type: Progress Notes Filed: 01/05/2020 12:15 PM Note Text: Radiology Service Progress Note PATIENT NAME: Hien Lam DATE OF SERVICE: January 05, 2020 TIME: 12:14 PM PATIENT IDENTITY VERIFICATION COMPLETED USING TWO (2) IDENTIFIERS: Name and Date of confirmed by patient verbally and Name and Date of confirmed by identification band. PATIENT GENDER DATA: Female. status: : No status: NO. PATIENT RELEVANT IMPLANT DATA REVIEWED: Not Applicable RADIOLOGY DEPARTMENT: General X-ray: Exam(s) Completed: Abdomen X-Ray Abdomen WITH UPRIGHT VIEW ALSO PERIPHERAL IV DATA: Not applicable SIGNED BY: ENRRIQUE MONTEIRO RT R January 05, 2020 12:14 PM [facility] XR ABD 2V SUPINE W UPR/DECUB /CTLon 01-05-2020 XR ABD 2V SUPINE W UPR/DECUB/CTL * * *Final Report* * * DATE OF EXAM: Jan 05 2020 12:25PM VHX [id number] - XR ABD 2V SUPINE W UPR/DECUB/CTL / PROCEDURE REASON: multiple diagnoses * * * * Physician Interpretation * * * * CLINICAL: Epigastric pain TECHNIQUE: 3 views of the abdomen. FINDINGS: A nonspecific nonobstructive bowel gas pattern is present. No pathologic calcifications are seen. The osseous structures are grossly normal. IMPRESSION: Nonspecific nonobstructive bowel gas pattern College Professor: LISA Transcribe Date/Time: Jan 05 2020 12:58P Dictated by : ANDRADE LOPEZ MD This examination was interpreted and the report reviewed and electronically signed by: ANDRADE LOPEZ MD on Jan 05 2020 12:59PM EST [id number] [facility] Otheron 11-03-2019 Interpreted by: LAURIE KIRK YBKDJR26/03/20 09:54STUDY:Thyroid Ultrasound; Completed time: 2:50 PM. INDICATION: Hypercortisolism. COMPARISON: None available. ORDERING CLINICIAN:OLIVER AUGUSTE PA-C TECHNIQUE:Real-time grayscale and color ultrasound of the thyroid was performed. FINDINGS:The right lobe of the thyroid measures 5.1 x 2.2 x 2.3 cm. Echotexture is mildly heterogeneous. The left lobe of the thyroid measures 4.5 x 2.0 x 1.5 cm. Echotextureis mildly heterogeneous. Estimated total number of nodules greater than or equal to 1 cm: 0. Number of spongiform nodules greater than or equal to 2 cm notdescribed below (TR1): 0.Number of mixed cystic and solid nodules greater than or equal to 1.5cm not described below (TR2): 0. There is a hypoechoic lesion posterior to the right lobe of thyroidgland measuring 1.0 x 0.7 x 1.0 cm. This may represent a parathyroidgland. IMPRESSION:1. Coarse and heterogeneous thyroid gland suggesting underlyingthyroiditis. Please correlate with thyroid function tests to addspecificity. No discrete thyroid nodules are identified.2. Small hypoechoic lesion at the posterior margin of the rightthyroid lobe measuring 1.0 cm, could potentially be of parathyroidorigin. ACR TI-RADS recommendationsTR5 (greater than or equal to 7 points) - FNA if greater than or equalto 1 cm, follow-up if 0.5 - 0.9 cm every year for 5 yearsTR4 (4-6 points) - FNA if greater than or equal to 1.5 cm, follow-upif 1 - 1.4 cm in 1, 2, 3 and 5 yearsTR3 (3 points) - FNA if greater than or equal to 2.5 cm, follow-up if1.5 - 2.4 cm in 1, 3 and 5 yearsTR2 (2 points) & TR1 (0 points) - No FNA or follow-up Signed by Fely MorganElectronically signed by: FELY MORGAN 11/10/19 09:54 Normal [facility] Work Phone: Interpreted by: KIYA WHITING11/03/19 14:53MRN: [id number] Name: HIEN LAM STUDY:CT ABDOMEN WO CONTRAST; 11/03/2019 2:44 pm INDICATION:on going treatment for hypercortisolism. COMPARISON:No available comparisons. ORDERING CLINICIAN:OLIVER AUGUSTE TECHNIQUE:CT of the abdomen was performed without intravenous contrast. Cor[place]and sagittal reformatted images were obtained. FINDINGS:CHEST:The lung bases are clear. ABDOMEN:LIVER: No focal hepatic lesions. GALLBLADDER: Cholecystectomy. BILE DUCTS: No biliary ductal dilation SPLEEN: Calcified nodules in the spleen, likely related to oldgranulomatous disease. PANCREAS: No focal pancreatic lesions. ADRENALS: No evidence of the adrenal gland nodule or adrenal glandthickening. KIDNEYS/URETERS: No nephrolithiasis or hydronephrosis. VESSELS: Aorta and IVC are normal in caliber. BOWEL: The stomach is unremarkable. The small bowel loops arenondilated. Small amount of fecal material in the colon. PERITONEUM/RETROPERITONEU M/LYMPH NODES: No lymphadenopathy by CTsize criteria. No ascites or free air, no fluid collection. ABDOMINAL WALL: Within normal limits. ABDOMINAL AND PELVIC OSSEOUS STRUCTURES: No aggressive osseouslesions. IMPRESSION:No evidence of the adrenal gland nodule or adrenal gland thickening. Cholecystectomy. Calcified nodules in the spleen, suggestive of old granulomatousdisease.Elec tronically signed by: SCOT WHITING 11/03/19 14:53 Normal -[facility] Work Phone: Comment on above: ORDER REVISED TO A C T ABDOMEN WO CONTRAST BY RADIOLOGIST Hemoglobin A1Con 10-17-2019 HbA1c (Bld) [Mass fraction] 143 {MG/DL} [facility] Work Phone: HbA1c (Bld) [Mass fraction] 6.6 % [facility] Work Phone: Comment on above: Diagnosis of Diabete s-Adults Non-Diabetic: < or = 5.6% Increased risk for developing diabetes: 5.7-6.4% Diagnostic of diabetes: > or = 6.5%. Monitoring of Diabetes Age (y) Therapeutic Goal (%) Adults: >18 <7.0 Pediatrics: 13-18 <7.5 7-12 <8.0 0- 6 7.5-8.5 [employer]. Diabetes Care 33(S1), Nov 2009. Metabolic Panelon 10-17-2019 Anion gap [Moles/Vol] 17 mmol/L 10 - 20 MG- [facility] Work Phone: Calcium [Mass/Vol] 10.6 mg/dL 8.6 - 10.6 MG-End [facility] Work Phone: Chloride [Moles/Vol] 104 mmol/L 98 - 107 MG-E ndocrino [facility] Work Phone: CO2 [Moles/Vol] 21 mmol/L 21 - 32 MG-Endocr jeffery [facility] Work Phone: Creatinine [Mass/Vol] 0.74 mg/dL See Below MG- [facility] Work Phone: Comment on above: Reference Range: 0.5 0 - 1.05 Glucose [Mass/Vol] 121 mg/dL above high threshold 74 - 99 [facility] Work Phone: Potassium [Moles/Vol] 3.9 mmol/L 3.5 - 5.3 MG- [facility] Work Phone: Sodium [Moles/Vol] 138 mmol/L 136 - 145 MG-[facility] Work Phone: Urea nitrogen [Mass/Vol] 18 mg/dL 6 - 23 [facility] Work Phone: Otheron 10-17-2019 >60 >60 MG-[facility]ocr[facility] Work Phone: Comment on above: CALCULATIONS OF CRISTIAN MATED GFR ARE PERFORMED USING THE MDRD STUDY EQUATION FOR THE IDMS-TRACEABLE CREATININE METHODS. CLIN CHEM 2007;53:766-72 Anti-Thyroglobulin ABon 09- Thyroglobulin Ab Qn [IU]/mL 0 - 40 [facility] [employer] Work Phone: Hemoglobin A1Con 07-13-2019 HbA1c (Bld) [Mass fraction] 157 {MG/DL} [facility] [employer] Work Phone: HbA1c (Bld) [Mass fraction] 7.1 % [facility] [employer] Work Phone: Comment on above: Diagnosis of Diabete s-Adults Non-Diabetic: < or = 5.6% Increased risk for developing diabetes: 5.7-6.4% Diagnostic of diabetes: > or = 6.5%. Monitoring of Diabetes Age (y) Therapeutic Goal (%) Adults: >18 <7.0 Pediatrics: 13-18 <7.5 7-12 <8.0 0- 6 7.5-8.5 [employer]. Diabetes Care 33(S1), Nov 2009. IO glucose, blood, finger st ick via hand held monitoron 07-13-2019 Glucose [Mass/Vol] 136 mg/dL [facility] [employer] Work Phone: Lipid Panelon 07-13-2019 Cholesterol [Mass/Vol] 292 mg/dL above high threshold 0 - 199 [facility] [employer] Work Phone: Comment on above: . AGE DESIRABLE BORD VIRGIL HIGH HIGH 0-19 Y 0 - 169 170 - 199 >/= 200 20-24 Y 0 - 189 190 - 224 >/= 225 >24 Y 0 - 199 200 - 239 >/= 240 All ranges are based on fasting samples. Specific therapeutic targets will vary based on patient-specific cardiac risk.. Pediatric guidelines reference:Pediatrics 2011, 128(S5). Adult guidelines reference: NCEP ATPIII Guidelines, DEIRDRE 2001, 258:2486-97. Venipuncture immediately after or during the administration of Metamizole may lead to falsely low results. Testing should be performed immediately prior to Metamizole dosing. Cholesterol in HDL [Mass/Vol] 18.7 mg/dL Abnormal [facility] [employer] Work Phone: Comment on above: . AGE VERY LOW LOW N ORMAL HIGH 0-19 Y < 35 < 40 40-45 ---- 20- 24 Y ---- < 40 >45 ---- >24 Y ---- < 40 40-60 >60. Cholesterol in LDL [Mass/Vol] - 0 - 99 [facility] [employer] Work Phone: Comment on above: . NEAR BORD AGE JIAN RABLE OPTIMAL HIGH HIGH VERY HIGH 0-19 Y 0 - 109 --- 110-129 >/= 130 ---- 20-24 Y 0 - 119 --- 120-159 >/= 160 ---- >24 Y 0 - 99 100-129 130-159 160-189 >/=190.THE CALCULATION OF LDL AND VLDL ARE INACCURATEWHEN TRIGLYCERIDES ARE GREATER THAN 400 MG/DLOR WHEN THE PATIENT IS NON-FASTING. IF LDLMEASUREMENT IS NECESSARY CONTACT THE TESTINGLABORATORY FOR AN ALTERNATIVE LDL ASSAY. Cholesterol non HDL [Mass/Vol] 273 mg/dL [facility] [employer] Phone: Comment on above: AGE DESIRABLE BORDER LINE HIGH HIGH VERY HIGH 0-19 Y 0 - 119 120 - 144 >/= 145 >/= 160 20-24 Y 0 - 149 150 - 189 >/= 190 ---- >24 Y 30 MG/DL ABOVE LDL CHOLESTEROL GOAL. Cholesterol.total/Cho lesterol in HDL [Mass ratio] 15.6 {ratio} Abnormal [employer] Phone: Comment on above: REF VALUESDESIRABLE < 3.4HIGH RISK > 5.0 Triglyceride [Mass/Vol] 489 mg/dL above high threshold 0 - 149 [employer] Phone: Comment on above: . AGE DESIRABLE BORD VIRGIL HIGH HIGH VERY HIGH 0 D-90 D 19 - 174 ---- ---- ----91 D- 9 Y 0 - 74 75 - 99 >/= 100 ---- 10-19 Y 0 - 89 90 - 129 >/= 130 ---- 20-24 Y 0 - 114 115 - 149 >/= 150 ---- >24 Y 0 - 149 150 - 199 200- 499 >/= 500. Venipuncture immediately after or during the administration of Metamizole may lead to falsely low results. Testing should be performed immediately prior to Metamizole dosing. Lipid Panel SEE COMMENT 0 - 40 [facility] [employer] Phone: Comment on above: Unable to calculate VLDL. Metabolic Panelon 07-13-2019 Anion gap [Moles/Vol] 13 mmol/L 10 - 20 [facility] [employer] Phone: Calcium [Mass/Vol] 9.6 mg/dL 8.6 - 10.6 [facility] [employer] Work Phone: Chloride [Moles/Vol] 104 mmol/L 98 - [address] [facility] [employer] Work Phone: CO2 [Moles/Vol] 22 mmol/L 21 - 32 [facility] [employer] Work Phone: Creatinine [Mass/Vol] 0.74 mg/dL See Below [facility] [employer] Work Phone: Comment on above: Reference Range: 0.5 0 - 1.05 Glucose [Mass/Vol] 128 mg/dL above high threshold 74 - 99 [facility] [employer] Work Phone: Potassium [Moles/Vol] 4.1 mmol/L 3.5 - 5.3 [facility] [employer] Work Phone: Sodium [Moles/Vol] 135 mmol/L below low threshold 136 - 145 [facility] [employer] Work Phone: Urea nitrogen [Mass/Vol] 19 mg/dL 6 - 23 [facility] [employer] Work Phone: Otheron 07-13-2019 >60 >60 [facility] [employer] Work Phone: Comment on above: CALCULATIONS OF CRISTIAN MATED GFR ARE PERFORMED USING THE MDRD STUDY EQUATION FOR THE IDMS-TRACEABLE CREATININE METHODS. CLIN CHEM 2007;53:766-72 T3 - Free Triiodothyronine, Serumon 07-13-2019 Free T3 [Mass/Vol] 2.7 pg/mL 1.8 - 4.2 [facility] [employer] Work Phone: T4 - Free Thyroxine, Serumon 07-13-2019 Free T4 [Mass/Vol] 0.89 ng/dL See Below [facility] [employer] Work Phone: Comment on above: Reference Range: 0.7 8 - 1.48 Thyroxine Free testing is performed using different testing methodology at [facility] than at [facility]. Direct result comparisons should only be made within the same method.. Patients receiving more than 5 mg/day of biotin may have interference in test results. A sample should be taken no sooner than eight hours after previous dose. Contact [phone] for additional information. TSH - Thyroid Stimulating Ho jb Serumon 07-13-2019 TSH Qn 2.76 {mIU/L} See Below [employer] [facility] [employer] Work Phone: Comment on above: Reference Range: 0.4 4 - 3.98 TSH testing is performed using different testing methodology at [facility] than at other [facility]. Direct result comparisons should only be made within the same method.. Patients receiving more than 5 mg/day of biotin may have interference in test results. A sample should be taken no sooner than eight hours after previous dose. Contact [phone] for additional information. XR ANKLE RIGHT (MIN 3 VIEWS) on 08-28-2018 XR ANKLE RIGHT (MIN 3 VIEWS) XR TIBIA FIBULA RIGHT (2 VIEWS), XR ANKLE RIGHT (MIN 3 VIEWS): HISTORY: Pain, status post fall.COMPARISON: Right ankle 06/18/2014. FINDINGS: RIGHT TIBIA AND FIBULA: There is no acute fracture or dislocation. There are mild degenerative changes of the right knee and there are degenerative changes of the tibiotalar joint. There is no other bony, joint or soft tissue abnormality.RIGHT ANKLE: There is no acute fracture or dislocation. There are mild degenerative changes of the tibiotalar joint with anterior and posterior osteophytic spurring. There is moderate calcaneal enthesopathy. There is mild soft tissue swelling about the lateral malleolus. Ankle mortise is symmetric.IMPRESSION: 1. No acute osseous abnormality in the right tibia/fibula or ankle.2. Degenerative changes as described above.3. Calcaneal enthesopathy.4. Soft tissue swelling about the lateral ankle.Interpreted by:MARIA E Garciaigned by:Kiet Lucero MD08/27/18inal result Normal [facility] XR TIBIA FIBULA RIGHT (2 VIE WS)on 08-28-2018 XR TIBIA FIBULA RIGHT (2 VIEWS) XR TIBIA FIBULA RIGHT (2 VIEWS), XR ANKLE RIGHT (MIN 3 VIEWS): HISTORY: Pain, status post fall.COMPARISON: Right ankle 06/18/2014. FINDINGS: RIGHT TIBIA AND FIBULA: There is no acute fracture or dislocation. There are mild degenerative changes of the right knee and there are degenerative changes of the tibiotalar joint. There is no other bony, joint or soft tissue abnormality.RIGHT ANKLE: There is no acute fracture or dislocation. There are mild degenerative changes of the tibiotalar joint with anterior and posterior osteophytic spurring. There is moderate calcaneal enthesopathy. There is mild soft tissue swelling about the lateral malleolus. Ankle mortise is symmetric.IMPRESSION: 1. No acute osseous abnormality in the right tibia/fibula or ankle.2. Degenerative changes as described above.3. Calcaneal enthesopathy.4. Soft tissue swelling about the lateral ankle.Interpreted by:MARIA E Garciaigned by:Kiet Lucero MD08/27/18inal result Normal [facility] CT ABDOMEN PELVIS W IV CONTR Julian 07-20-2018 CT ABDOMEN PELVIS W IV CONTRAST CT ABDOMEN PELVIS W IV CONTRASTCLINICAL STATEMENT: Mid abdominal pain radiating to the back.COMPARISON: CT abdomen/pelvis from July 23, 2014. TECHNIQUE: CT examination of the abdomen and pelvis following the administration of 75 mL of Isovue-370 intravenous contrast. Coronal and sagittal reformations were performed.Dose reduction techniques were achieved by using automated exposure control and/or adjustment of mA and/or kV according to patient size and/or use of iterative reconstruction technique.FINDINGS: The liver demonstrates hepatic steatosis. The spleen, pancreas, and bilateral adrenal glands are unremarkable. The patient is status post cholecystectomy. The aorta is nonaneurysmal. No hydronephrosis or obstructive uropathy is present. There is normal symmetric enhancement of the bilateral kidneys.The stomach is relatively collapsed but demonstrates mural thickening which may be due to underdistention. No bowel obstruction or acute bowel inflammatory changes are noted. There may be a small appendicolith within the proximal portion of the appendix, although the appendix is not dilated and there are no periappendiceal inflammatory changes to suggest acute appendicitis. The CT appearance of the bladder is relatively collapsed. The CT appearance of the uterus is unremarkable. There is likely a small 1.9 cm left ovarian cyst. No pelvic free fluid is present.The lung bases are clear. The osseous structures are intact.IMPRESSION: No bowel obstruction or acute bowel inflammatory changes. No CT evidence of acute appendicitis.Diffuse, mild mural thickening of the stomach which may be due to underdistention but is nonspecific. Correlation with endoscopy may be advisable as clinically indicated.Hepatic steatosis. Status post cholecystectomy.Interpret ed by:MARIA E Donaldigned by:Joseluis Hodge MD07/19/18Final result Normal [facility] Cult,Urineon 07-20-2018 Cult,Urine Specimen Description .URINE Special Requests NOT REPORTED Culture NO SIGNIFICANT GROWTH Report Status FINAL 07/20/2018 Normal [facility] Comment on above: Performed By: #### U RC ####[facility] [place] [address] [facility] [place] [address].[place] [address] CBC with Diffon 07-19-2018 Abs. Basophil 0.10 k/uL Normal 0.0-0.2 [facility] Comment on above: Performed By: #### T ROPI, CDP, LACTIC, LIP, CP ####[address] [place] [address] Abs.Neutrophil (Seg) 10.00 k/uL High 2.5-7.0 [facility] Comment on above: Performed By: #### T ROPI, CDP, LACTIC, LIP, CP ####[address] [place] [address] Auto Diff Performed YES Normal [facility] Comment on above: Performed By: #### T ROPI, CDP, LACTIC, LIP, CP ####[place] [id number] [facility] [place] [address] Basophils/100 WBC Auto (Bld) 1 % Normal 0-2 [facility] Comment on above: Performed By: #### T ROPI, CDP, LACTIC, LIP, CP ####[place] [id number] [place] [address] Eosinophils Auto #/vol (Bld) 0.30 10*3/uL Normal 0.0-0.4 [facility] Comment on above: Performed By: #### T ROPI, CDP, LACTIC, LIP, CP ####[facility] [place] [address] Eosinophils/100 WBC Auto (Bld) 2 % Normal 0-5 [facility] Comment on above: Performed By: #### T ROPI, CDP, LACTIC, LIP, CP ####[place] [address] [place] [address] Erythrocyte distribution width Auto Ratio (RBC) 13.9 % Normal 12.1-15.2 [facility] Comment on above: Performed By: #### T ROPI, CDP, LACTIC, LIP, CP ####[place] [address] [place] [address] Hematocrit Auto Volume Fraction (Bld) 53.2 % High 36-46 [facility] Comment on above: Performed By: #### T ROPI, CDP, LACTIC, LIP, CP ####[place] [address] [place] [address] Hemoglobin mass conc (Bld) 18.0 g/dL High 12.0-16.0 [facility] Comment on above: Performed By: #### T ROPI, CDP, LACTIC, LIP, CP ####[place] [address] [place] [address] Lymphocytes Auto #/vol (Bld) 3.80 10*3/uL Normal 1.0-4.8 [facility] Comment on above: Performed By: #### T ROPI, CDP, LACTIC, LIP, CP ####[place] [address] [place] [address] Lymphocytes/100 WBC Auto (Bld) 25 % Normal 15-40 [facility] Comment on above: Performed By: #### T ROPI, CDP, LACTIC, LIP, CP ####[place] [address] [place] [address] MCH Auto Entitic mass (RBC) 32.6 pg Normal 26-34 [facility] Comment on above: Performed By: #### T ROPI, CDP, LACTIC, LIP, CP ####[place] [address] [place] [address] MCHC Auto mass conc (RBC) 33.8 g/dL Normal 31-37 [facility] Comment on above: Performed By: #### T ROPI, CDP, LACTIC, LIP, CP ####[place] [address] [place] [address] MCV Auto Entitic volume (RBC) 96.5 fL Normal 80-100 [facility] Comment on above: Performed By: #### T ROPI, CDP, LACTIC, LIP, CP ####[place] [address] [place] [address] Monocytes Auto #/vol (Bld) 0.80 10*3/uL Normal 0.0-1.0 [facility] Comment on above: Performed By: #### T ROPI, CDP, LACTIC, LIP, CP ####[place] [address] [place] [address] Monocytes/100 WBC Auto (Bld) 5 % Normal 4-8 [facility] Comment on above: Performed By: #### T ROPI, CDP, LACTIC, LIP, CP ####[place] [address] [place] [address] Neutrophil (Seg) 67 % Normal 47-75 [facility] Comment on above: Performed By: #### T ROPI, CDP, LACTIC, LIP, CP ####[place] [address] [place] [address] Platelets Auto #/vol (Bld) 222 10*3/uL Normal 140-450 [facility] Comment on above: Performed By: #### T ROPI, CDP, LACTIC, LIP, CP ####[place] [address] [place] [address] RBC Auto #/vol (Bld) 5.51 10*6/uL High 4.0-5.2 [facility] Comment on above: Performed By: #### T ROPI, CDP, LACTIC, LIP, CP ####[address] [place] [address] WBC Auto #/vol (Bld) 15.0 10*3/uL High 3.5-11.0 [facility] Comment on above: Performed By: #### T ROPI, CDP, LACTIC, LIP, CP ####[address] [place] [address] Abs.Imm.Granulocyte NOT REPORTED Normal 0.00-0.30 [facility] Comment on above: Performed By: #### T ROPI, CDP, LACTIC, LIP, CP ####[address] [place] [address] Immature granulocytes #/vol (Bld) NOT REPORTED Normal 0 [facility] Comment on above: Performed By: #### T ROPI, CDP, LACTIC, LIP, CP ####[address] [place] [address] NRBC Automated NOT REPORTED Normal [facility] Comment on above: Performed By: #### T ROPI, CDP, LACTIC, LIP, CP ####[address] [place] [address] Platelet mean volume Auto Entitic volume (Bld) NOT REPORTED Normal 6.0-12.0 [facility] Comment on above: Performed By: #### T ROPI, CDP, LACTIC, LIP, CP ####[place] [address] [place] [address] Platelets Auto #/vol (Bld) NOT REPORTED Normal [facility] Comment on above: Performed By: #### T ROPI, CDP, LACTIC, LIP, CP ####[facility] [place] [address] RBC morphology finding Nom (Bld) NOT REPORTED Normal [facility] Comment on above: Performed By: #### T ROPI, CDP, LACTIC, LIP, CP ####[facility] [place] [address] WBC Morphology NOT REPORTED Normal [facility] Comment on above: Performed By: #### T ROPI, CDP, LACTIC, LIP, CP ####[place] [address] [place] [address] Comp Metabolic Profon 2017 (cont.) Normal [facility] Comment on above: Result Comment: Aver age GFR for 40-49 years old: 99 mL/min/1.73sq mChronic Kidney Disease: <60 mL/min/1.73sq mKidney failure: <15 mL/min/1.73sq meGFR calculated using average adult body mass. Additional eGFR calculator available at:http://www.Mobileye.[employer]Access/multiple_crcl_2012.htm Performed By: #### T ROPI, CDP, LACTIC, LIP, CP ####[place] [address] [place] [address] Albumin mass conc 3.7 g/dL Normal 3.5-5.2 [facility] Comment on above: Performed By: #### T ROPI, CDP, LACTIC, LIP, CP ####[facility] [place] [address](083) Alkaline Phos 64 U/L Normal 35-104 [facility] Comment on above: Performed By: #### T ROPI, CDP, LACTIC, LIP, CP ####[facility] [place] [address](997) ALT enzyme act/vol 22 U/L Normal 5-33 [facility] Comment on above: Performed By: #### T ROPI, CDP, LACTIC, LIP, CP ####[place] [address] [place] [address] Anion gap 3 molar conc 16 mmol/L Normal 9-17 [facility] Comment on above: Performed By: #### T ROPI, CDP, LACTIC, LIP, CP ####[place] [address] [place] [address] AST enzyme act/vol 13 U/L Normal <32 [facility] Comment on above: Performed By: #### T ROPI, CDP, LACTIC, LIP, CP ####[address] [place] [address] Bilirubin Ql (U) 0.20 mg/dL Low 0.30-1.20 [facility] Comment on above: Performed By: #### T ROPI, CDP, LACTIC, LIP, CP ####[address] [place] [address] BUN/CRE Ratio 23 High 9-20 [facility] Comment on above: Performed By: #### T ROPI, CDP, LACTIC, LIP, CP ####[address] [place] [address] Calcium mass conc 9.0 mg/dL Normal 8.6-10.4 [facility] Comment on above: Performed By: #### T ROPI, CDP, LACTIC, LIP, CP ####[place] [address] [place] [address] Chloride molar conc 99 mmol/L Normal 98-107 [facility] Comment on above: Performed By: #### T ROPI, CDP, LACTIC, LIP, CP ####[place] [address] [place] [address] CO2 molar conc 20 mmol/L Normal 20-31 [facility] Comment on above: Performed By: #### T ROPI, CDP, LACTIC, LIP, CP ####[facility] [place] [address] Creatinine mass conc 0.56 mg/dL Normal 0.50-0.90 [facility] Comment on above: Performed By: #### T ROPI, CDP, LACTIC, LIP, CP ####[facility] [place] [address] GFR, Amer >60 Normal >60 [facility] Comment on above: Performed By: #### T ROPI, CDP, LACTIC, LIP, CP ####[place] [address] [place] [address] GFR,non Amer >60 Normal >60 [facility] Comment on above: Performed By: #### T ROPI, CDP, LACTIC, LIP, CP ####[place] [address] [place] [address] Glucose mass conc 227 mg/dL High 70-99 [facility] Comment on above: Performed By: #### T ROPI, CDP, LACTIC, LIP, CP ####[place] [address] [place] [address] Potassium molar conc 4.0 mmol/L Normal 3.7-5.3 [facility] Comment on above: Performed By: #### T ROPI, CDP, LACTIC, LIP, CP ####[place] [address] [place] [address] Protein mass conc 7.0 g/dL Normal 6.4-8.3 [facility] Comment on above: Performed By: #### T ROPI, CDP, LACTIC, LIP, CP ####[place] [address] [place] [address] Sodium molar conc 135 mmol/L Normal 135-144 [facility] Comment on above: Performed By: #### T ROPI, CDP, LACTIC, LIP, CP ####[place] [address], [place] [id number] Urea nitrogen mass conc 13 mg/dL Normal 6-20 [facility] Comment on above: Performed By: #### T ROPI, CDP, LACTIC, LIP, CP ####[facility] [place] [address] Albumin/Globulin mass ratio NOT REPORTED Normal 1.0-2.5 [facility] Comment on above: Performed By: #### T ROPI, CDP, LACTIC, LIP, CP ####[facility] [id number] Staging: NOT REPORTED Normal [facility] Comment on above: Performed By: #### T ROPI, CDP, LACTIC, LIP, CP ####[place] [address] [place] [address] ED Provider Noteon 8 HIM IP Note OR Manager Collection Normal [facility] Lactic Acidon 07-19-2018 Lactate molar conc 2.7 mmol/L High 0.5-2.2 [facility] Comment on above: Performed By: #### T ROPI, CDP, LACTIC, LIP, CP ####[place] [address] [place] [address] Lactic Acid,Whole Bl NOT REPORTED Normal 0.7-2.1 [facility] Comment on above: Performed By: #### T ROPI, CDP, LACTIC, LIP, CP ####[facility] [place] [address] Lipaseon 07-19-2018 Lipase enzyme act/vol 56 U/L Normal 13-60 [facility] Comment on above: Performed By: #### T ROPI, CDP, LACTIC, LIP, CP ####[facility] [place] [address] Troponinon 07-19-2018 Troponin I.cardiac mass conc Normal [facility] Comment on above: Result Comment: Refe rence Range: <0.03 Within reference range. 0.03-0.09 Possible myocardial damage.Repeat at appropriate intervals to rule out chronic elevation. >= 0.10 Indicative of myocardial damage.Patients with high levels of Biotin oral intake (i.e >5mg/day) may have falsely decreased Troponin T levels. Samples collected within 8 hours of biotin intake may require additional information for diagnosis. Performed By: #### T ROPI, CDP, LACTIC, LIP, CP ####[facility] [place] [address] Troponin T.cardiac mass conc ug/L Normal <0.03 [facility] Comment on above: Result Comment: Trop onin T results cannot be compared to Troponin-I results. Performed By: #### T ROPI, CDP, LACTIC, LIP, CP ####[facility] [place] [address] Urinalysis, Routineon 2017 Acetaminophen mass conc TRACE Abnormal NEG [facility] Comment on above: Performed By: #### U A, UMICAO ####[facility] [place] [address] Bilirubin, SemiQt,Ur Negative Abnormal NEG [facility] Comment on above: Performed By: #### U A, UMICAO ####[facility] [place] [address] Color YELLOW Normal YEL [facility] Comment on above: Performed By: #### U A, UMICAO ####[facility] [place] [address] Comment Normal [facility] Comment on above: Performed By: #### U A, UMICAO ####[facility] [place] [address] Glucose,Semi-qnt,Ur 250 mg/dL Abnormal NEG [facility] Comment on above: Performed By: #### U A, UMICAO ####[facility] [place] [address] Hemoglobin, Ur TRACE Abnormal NEG [facility] Comment on above: Performed By: #### U A, UMICAO ####[facility] [place] [address] Leuckocyte Esterase 1+ Abnormal NEG [facility] Comment on above: Performed By: #### U Mat, UMICAO ####[facility] [place] [address] Nitrite,Ur Negative Normal NEG [facility] Comment on above: Performed By: #### U Mat, UMICAO ####[facility] [place] [address] PH,Ur 5.0 Normal 5.0-8.0 [facility] Comment on above: Performed By: #### U Mat, UMICAO ####[facility] [place] [address] Protein mass conc 2+ Abnormal NEG [facility] Comment on above: Performed By: #### U Mat, UMICAO ####[facility] [place] [address] Spec. Smock,Ur 1.025 Normal 1.005-1.030 [facility] Comment on above: Performed By: #### U Mat, UMICAO ####[facility] [place] [address] Turbidity CLEAR Normal CLEAR [facility] Comment on above: Performed By: #### U A, UMICAO ####[facility] [place] [address] Urobilinogen,Ur 4 mg/dL Abnormal NORM [facility] Comment on above: Performed By: #### U Mat, UMICAO ####[facility] [place] [address] Urinalysis,Microon 8 ----- Normal [facility] Comment on above: Performed By: #### U A, UMICAO ####[facility] [place] [address] Epithelial cells 0 TO 2 Normal [facility] Comment on above: Performed By: #### U A, UMICAO ####[facility] [place] [address] RBC Test strip #/vol (U) 5 TO 10 Normal 0-2 [facility] Comment on above: Performed By: #### U A, UMICAO ####[facility] [place] [address] Urine WBC's 10 TO 20 Normal 0 [facility] Comment on above: Performed By: #### U A, UMICAO ####[facility] [place] [address] Amorphous Sediment NOT REPORTED Normal NONE [facility] Comment on above: Performed By: #### U A, UMICAO ####[facility] [place] [address] Bacteria NOT REPORTED Normal NONE [facility] Comment on above: Performed By: #### U A, UMICAO ####[facility] [place] [address] Casts NOT REPORTED Normal [facility] Comment on above: Performed By: #### U A, UMICAO ####[facility] [place] [address] Crystals NOT REPORTED Normal NONE [facility] Comment on above: Performed By: #### U A, UMICAO ####[facility], [place] [phone] Epithelial, Renal NOT REPORTED Normal 0 [facility] Comment on above: Performed By: #### U ASHLEY Rivero ####[facility] [place] [address] Mucus Strands NOT REPORTED Normal NONE [facility] Comment on above: Performed By: #### ASHLEY Stubbs ####[facility] [place] [address] Other Observations NOT REPORTED Normal NREQ [facility] Comment on above: Performed By: #### ASHLEY Stubbs ####[facility] [place] [place] [address] Trichomonas NOT REPORTED Normal NONE [facility] Comment on above: Performed By: #### ASHLEY Stubbs ####[facility] [place] [address] Yeast NOT REPORTED Normal NONE [facility] Comment on above: Performed By: #### ASHLEY Stubbs ####[facility] [place] [address] FREE T4on 07-06-2018 T4 free mass conc 0.84 ng/dL Normal 0.71-1.85 [facility] Comment on above: Performed By: #### 3 1522, [id number], [id number] ####[facility] FSHon 07-06-2018 FSH 8.2 mIU/ml Normal 2.0-22.0 [facility] Comment on above: Result Comment: FSH Normal Ranges for femalesNormally menstruating females: Follicular phase 4-13 mIU/ml Mid-Cycle peak 5-22 mIU/ml Luteal phase 2-13 mIU/ml Postmenopausal females 20-138 mIU/ml Performed By: #### 3 1522, [id number], [id number] ####[facility] [place] [address], [facility] TPO ANTIBODY [id number] TPO ANTIBODY 1.2 IU/mL Normal 0.0-9.0 [facility] Comment on above: Result Comment: Perf ormed by [employer],[address], [facility] [place] [address] [employer]vg[employer], Stefano Garcia MD - Lab. Director TSH3on 07-06-2018 TSH 3RD GENERATION 1.58 uIU/mL Normal 0.34-5.60 [facility] Comment on above: Performed By: #### 3 1522, [id number], [id number] ####[facility] Progress Noteson 10-19-2017 Progress Notes Encounter Department : [facility] Notes by Funmilayo Vang at 10/19/2017 11:24 AMAuthor: Funmilayo VangService: (none)Author Type: Medical StudentFiled: 10/19/2017 11:26 AMEncounter Date: 10/19/2017Status: SignedEditor: Funmilayo Vang (Medical Student)Called patient about tobacco use and provided education if necessary. [facility] Vital Signs Date Time Vital Sign Value Performing Clinician Faci lity 07-18-2025 10:06-0400 Body height 163.8 cm Suad Jones MD Work Phone: [facility] 07-18-2025 10:06-0400 Body mass index (BMI) [Ratio] 36.17 kg/m2 Suad Jones MD Work Phone: [facility] 07-18-2025 10:06-0400 Body weight 97.07 kg Suad Jones MD Work Phone: [facility] 07-18-2025 10:06-0400 Diastolic blood pressure 86 mm[Hg] Suad Jones MD Work Phone: [facility] 07-18-2025 10:06-0400 Heart rate 64 /min Suad Jones MD Work Phone: [facility] 07-18-2025 10:06-0400 Respiratory rate 16 /min Suad Jones MD Work Phone: [facility] 07-18-2025 10:06-0400 SaO2% (BldA) [Mass fraction] 98 % Suad Jones MD Work Phone: [facility] 07-18-2025 10:06-0400 Systolic blood pressure 124 mm[Hg] Suad Jones MD Work Phone: [facility] 07-11-2025 12:42-0400 Body height 162.6 cm Gilda Leong MD Work Phone: [facility] 07-11-2025 12:42-0400 Body mass index (BMI) [Ratio] 37.25 kg/m2 Gilda Leong MD Work Phone: [facility] 07-11-2025 12:42-0400 Body weight 98.43 kg Gilda Leong MD Work Phone: [facility] 07-11-2025 12:42-0400 Diastolic blood pressure 65 mm[Hg] Gilda Leong MD Work Phone: [facility] 07-11-2025 12:42-0400 Heart rate 76 /min Gilda Leong MD Work Phone: [facility] 07-11-2025 12:42-0400 Systolic blood pressure 111 mm[Hg] Gilda Leong MD Work Phone: [facility] 06-04-2025 08:23-0400 Body height 162.6 cm Kaley Westbrook MD Work Phone: [facility] 06-04-2025 08:23-0400 Body mass index (BMI) [Ratio] 38.42 kg/m2 Kaley Westbrook MD Work Phone: [facility] 06-04-2025 08:23-0400 Body weight 101.52 kg Kaley Westbrook MD Work Phone: [facility] 06-04-2025 08:23-0400 Diastolic blood pressure 60 mm[Hg] Kaley Westbrook MD Work Phone: [facility] 06-04-2025 08:23-0400 Heart rate 67 /min Kaley Westbrook MD Work Phone: [facility] 06-04-2025 08:23-0400 Systolic blood pressure 110 mm[Hg] Kaley Westbrook MD Work Phone: [facility] 05-31-2025 16:06-0400 Body height 163.8 cm Charissa Seth DO Work Phone: [facility] 05-31-2025 16:06-0400 Body mass index (BMI) [Ratio] 37.86 kg/m2 Charissa Seth DO Work Phone: [facility] 05-31-2025 16:06-0400 Body weight 101.61 kg Charissa Seth DO Work Phone: [facility] 05-30-2025 10:05-0400 Body height 162.6 cm Suad Jones MD Work Phone: [facility] 05-30-2025 10:05-0400 Body mass index (BMI) [Ratio] 39.14 kg/m2 Suad Jones MD Work Phone: [facility] 05-30-2025 10:05-0400 Body weight 103.42 kg Suad Jones MD Work Phone: [facility] 05-30-2025 10:05-0400 Diastolic blood pressure 68 mm[Hg] Suad Jones MD Work Phone: [facility] 05-30-2025 10:05-0400 Heart rate 74 /min Suad Jones MD Work Phone: [facility] 05-30-2025 10:05-0400 Respiratory rate 16 /min Suad Jones MD Work Phone: [facility] 05-30-2025 10:05-0400 SaO2% (BldA) [Mass fraction] 99 % Suad Jones MD Work Phone: [facility] 05-30-2025 10:05-0400 Systolic blood pressure 100 mm[Hg] Suad Jones MD Work Phone: [facility] 04-04-2025 14:40-0400 Body height 162.6 cm Lenin Bajwa MD Work Phone: [facility] 04-04-2025 14:40-0400 Body mass index (BMI) [Ratio] 37.93 kg/m2 Lenin Bajwa MD Work Phone: [facility] 04-04-2025 14:40-0400 Body weight 100.25 kg Lenin Bajwa MD Work Phone: [facility] 04-04-2025 14:40-0400 Diastolic blood pressure 65 mm[Hg] Lenin Bajwa MD Work Phone: [facility] 04-04-2025 14:40-0400 Heart rate 67 /min Lenin Bajwa MD Work Phone: [facility] 04-04-2025 14:40-0400 Respiratory rate 17 /min Lenin Bajwa MD Work Phone: [facility] 04-04-2025 14:40-0400 Systolic blood pressure 96 mm[Hg] Lenin Bajwa MD Work Phone: [facility] 03-28-2025 13:44-0400 Body height 162.6 cm Ramiro gama MD Work Phone: [facility] 03-28-2025 13:44-0400 Body mass index (BMI) [Ratio] 37.99 kg/m2 Ramiro Bhandari MD Work Phone: [facility] 03-28-2025 13:44-0400 Body weight 100.38 kg Ramiro gama MD Work Phone: [facility] 03-28-2025 13:44-0400 Diastolic blood pressure 60 mm[Hg] Ramiro Bhandari MD Work Phone: [facility] 03-28-2025 13:44-0400 Heart rate 64 /min Ramiro gama MD Work Phone: [facility] 03-28-2025 13:44-0400 Systolic blood pressure 132 mm[Hg] Ramiro Bhandari MD Work Phone: [facility] 03-19-2025 09:44-0400 Body height 162.6 cm [employer] Work Phone: [facility] 03-19-2025 09:44-0400 Body mass index (BMI) [Ratio] 39.31 kg/m2 [place] [employer] Work Phone: [facility] 03-19-2025 09:44-0400 Body weight 103.87 kg [place] [employer] Work Phone: [facility] 03-15-2025 11:00-0400 Body height 162.6 cm Suad Jones MD Work Phone: [facility] 03-15-2025 11:00-0400 Body mass index (BMI) [Ratio] 39.31 kg/m2 Suad Jones MD Work Phone: [facility] 03-15-2025 11:00-0400 Body weight 103.87 kg Suad Jones MD Work Phone: [facility] 03-15-2025 11:00-0400 Diastolic blood pressure 70 mm[Hg] Suad Jones MD Work Phone: [facility] 03-15-2025 11:00-0400 Heart rate 74 /min Suad Jones MD Work Phone: [facility] 03-15-2025 11:00-0400 Respiratory rate 18 /min Suad Jones MD Work Phone: [facility] 03-15-2025 11:00-0400 SaO2% (BldA) [Mass fraction] 94 % Suad Jones MD Work Phone: [facility] 03-15-2025 11:00-0400 Systolic blood pressure 122 mm[Hg] Suad Jones MD Work Phone: [facility] 02-28-2025 11:38-0400 Body height 162.6 cm Geovany Ventura MD Work Phone: [facility] 02-28-2025 11:38-0400 Body mass index (BMI) [Ratio] 37.76 kg/m2 Geovany Ventura MD Work Phone: [facility] 02-28-2025 11:38-0400 Body weight 99.79 kg Geovany Ventura MD Work Phone: [facility] 02-28-2025 11:38-0400 Diastolic blood pressure 66 mm[Hg] Geovany Ventura MD Work Phone: [facility] 02-28-2025 11:38-0400 Heart rate 60 /min Geovany Ventura MD Work Phone: [facility] 02-28-2025 11:38-0400 Systolic blood pressure 134 mm[Hg] Geovany Ventura MD Work Phone: [facility] 02-14-2025 10:08-0400 Body height 162.6 cm Ramiro gama MD Work Phone: [facility] 02-14-2025 10:08-0400 Body mass index (BMI) [Ratio] 37.59 kg/m2 Ramiro Bhandari MD Work Phone: [facility] 02-14-2025 10:08-0400 Body weight 99.34 kg Ramiro gama MD Work Phone: [facility] 02-14-2025 10:08-0400 Diastolic blood pressure 68 mm[Hg] Ramiro Bhandari MD Work Phone: [facility] 02-14-2025 10:08-0400 Heart rate 68 /min Ramiro gama MD Work Phone: [facility] 02-14-2025 10:08-0400 Systolic blood pressure 98 mm[Hg] Ramiro Bhandari MD Work Phone: [facility] 01-18-2025 10:28-0400 Body height 163.8 cm Gilda Leong MD Work Phone: [facility] 01-18-2025 10:28-0400 Body mass index (BMI) [Ratio] 36.57 kg/m2 Gilda Leong MD Work Phone: [facility] 01-18-2025 10:28-0400 Body weight 98.16 kg Gilda Leong MD Work Phone: [facility] 01-18-2025 10:28-0400 Diastolic blood pressure 68 mm[Hg] Gilda Leong MD Work Phone: [facility] 01-18-2025 10:28-0400 Systolic blood pressure 120 mm[Hg] Gilda Leong MD Work Phone: [facility] 01-09-2025 17:37-0500 Diastolic blood pressure 51 mm[Hg] Ubaldo Nevarez [facility] 01-09-2025 17:37-0500 Heart rate 62 /min Ubaldo Nevarez [facility] 01-09-2025 17:37-0500 Mean blood pressure 66 mm[Hg] Ubaldo Nevarez [facility] 01-09-2025 17:37-0500 Respiratory rate 19 /min Ubaldo Nevarez [facility] 01-09-2025 17:37-0500 SaO2% (BldA) [Mass fraction] 96 % Ubaldo Roque [facility] 01-09-2025 17:37-0500 Systolic blood pressure 97 mm[Hg] Ubaldo Roque [facility] 01-09-2025 16:15-0500 Diastolic blood pressure 63 mm[Hg] Ubaldo Roque [facility] 01-09-2025 16:15-0500 Heart rate 60 /min Ubaldo Roque [facility] 01-09-2025 16:15-0500 Mean blood pressure 75 mm[Hg] Ubaldo Roque [facility] 01-09-2025 16:15-0500 Respiratory rate 24 /min Ubaldo Roque [facility] 01-09-2025 16:15-0500 SaO2% (BldA) [Mass fraction] 93 % Ubaldo Roque [facility] 01-09-2025 16:15-0500 Systolic blood pressure 100 mm[Hg] Ubaldo Roque [facility] 01-09-2025 15:44-0500 Diastolic blood pressure 52 mm[Hg] Ubaldo Roque [facility] 01-09-2025 15:44-0500 Heart rate 60 /min Ubaldo Roque [facility] 01-09-2025 15:44-0500 Mean blood pressure 62 mm[Hg] Ubaldo Roque [facility] 01-09-2025 15:44-0500 Respiratory rate 20 /min Ubaldo Roque [facility] 01-09-2025 15:44-0500 SaO2% (BldA) [Mass fraction] 93 % Ubaldo Roque [facility] 01-09-2025 15:44-0500 Systolic blood pressure 82 mm[Hg] Ubaldo Nevarez [facility] 01-09-2025 14:31-0500 Respiratory rate 21 /min Ubaldo Nevarez [facility] 01-09-2025 14:25-0500 SaO2% (BldA) [Mass fraction] 98.4 % Ubaldo Nevarez [facility] Resp Auto SS 01-09-2025 13:06-0500 Respiratory rate 16 /min Ubaldo Nevarez [facility] 01-09-2025 12:30-0500 Body temperature 98.24 [degF] Ubaldo Nevarez [facility] 01-09-2025 12:30-0500 Heart rate 80 /min Ubaldo Nevarez [facility] 01-09-2025 12:30-0500 Respiratory rate 18 /min Ubaldo Nevarez [facility] 12-28-2024 11:01-0500 Body height 165.1 cm Rico Coy MD Work Phone: [facility] 12-28-2024 11:01-0500 Body mass index (BMI) [Ratio] 35.78 kg/m2 Rico Coy MD Work Phone: [facility] 12-28-2024 11:01-0500 Body temperature 97.7 [degF] Rico Coy MD Work Phone: [facility] 12-28-2024 11:01-0500 Body weight 97.52 kg Rico Coy MD Work Phone: [facility] 12-28-2024 11:01-0500 Diastolic blood pressure 65 mm[Hg] Rico Coy MD Work Phone: [facility] 12-28-2024 11:01-0500 Heart rate 83 /min Rico Coy MD Work Phone: [facility] 12-28-2024 11:01-0500 Systolic blood pressure 96 mm[Hg] Rico Coy MD Work Phone: [facility] 10-23-2024 12:27-0500 Body height 165.1 cm Lenin Bajwa MD Work Phone: [facility] 10-23-2024 12:27-0500 Body mass index (BMI) [Ratio] 36.61 kg/m2 Lenin Bajwa MD Work Phone: [facility] 10-23-2024 12:27-0500 Body temperature 97.3 [degF] Lenin Bajwa MD Work Phone: [facility] 10-23-2024 12:27-0500 Body weight 99.79 kg Lenin Bajwa MD Work Phone: [facility] 10-23-2024 12:27-0500 Diastolic blood pressure 74 mm[Hg] Lenin Bajwa MD Work Phone: [facility] 10-23-2024 12:27-0500 Heart rate 84 /min Lenin Bajwa MD Work Phone: [facility] 10-23-2024 12:27-0500 Respiratory rate 18 /min Lenin Bajwa MD Work Phone: [facility] 10-23-2024 12:27-0500 Systolic blood pressure 122 mm[Hg] Lenin Bajwa MD Work Phone: [facility] 10-09-2024 13:23-0500 Body height 165.1 cm Jayce Roof DO Work Phone: [facility] 10-09-2024 13:23-0500 Body temperature 97.2 [degF] Jayce Roof DO Work Phone: [facility] 10-09-2024 13:23-0500 Diastolic blood pressure 66 mm[Hg] Jayce Roof DO Work Phone: [facility] 10-09-2024 13:23-0500 Systolic blood pressure 112 mm[Hg] Jayce Roof DO Work Phone: [facility] 10-04-2024 09:22-0500 Body temperature 97.52 [degF] Nain Pinto [facility] 10-04-2024 09:22-0500 Diastolic blood pressure 58 mm[Hg] Nain Pinto [facility] 10-04-2024 09:22-0500 Heart rate 63 /min Nain Pinto [facility] 10-04-2024 09:22-0500 Respiratory rate 18 /min Nain Pinto [facility] 10-04-2024 09:22-0500 SaO2% (BldA) [Mass fraction] 94 % Nain Pinto [facility] 10-04-2024 09:22-0500 Systolic blood pressure 115 mm[Hg] Nain Pinto [facility] 09-06-2024 13:22-0400 Body height 165.7 cm Gilda Leong MD Work Phone: [facility] 09-06-2024 13:22-0400 Body mass index (BMI) [Ratio] 34.61 kg/m2 Gilda Leong MD Work Phone: [facility] 09-06-2024 13:22-0400 Body weight 95.07 kg Gilda Leong MD Work Phone: [facility] 09-06-2024 13:22-0400 Diastolic blood pressure 76 mm[Hg] Gilda Leong MD Work Phone: [facility] 09-06-2024 13:22-0400 Heart rate 68 /min Gilda Leong MD Work Phone: [facility] 09-06-2024 13:22-0400 Systolic blood pressure 114 mm[Hg] Gilda Leong MD Work Phone: [facility] 08-09-2024 10:16-0400 Body height 165.1 cm Geovany Ventura MD Work Phone: [facility] 08-09-2024 10:16-0400 Body mass index (BMI) [Ratio] 34.45 kg/m2 Geovany Ventura MD Work Phone: [facility] 08-09-2024 10:16-040 Body weight 93.89 kg Geovany Ventura MD Work Phone: [facility] 08-09-2024 10:16-0400 Diastolic blood pressure 72 mm[Hg] Geovany Ventura MD Work Phone: [facility] 08-09-2024 10:16-0400 Heart rate 62 /min Geovany Ventura MD Work Phone: [facility] 08-09-2024 10:16-0400 Systolic blood pressure 116 mm[Hg] Geovany Ventura MD Work Phone: [facility] 07-26-2024 16:18-0400 Body temperature 98.6 [degF] Nain Pinto [facility] 07-26-2024 16:18-0400 Diastolic blood pressure 57 mm[Hg] Nain Pinto [facility] 07-26-2024 16:18-0400 Heart rate 73 /min Nain Pinto [facility] 07-26-2024 16:18-0400 Respiratory rate 18 /min Nain Pinto [facility] 07-26-2024 16:18-0400 SaO2% (BldA) [Mass fraction] 95 % Nain Pinto [facility] 07-26-2024 16:18-0400 Systolic blood pressure 102 mm[Hg] Nain Pinto [facility] 06-29-2024 12:57-0400 Body mass index (BMI) [Ratio] 32.85 kg/m2 Rico Coy MD Work Phone: [facility] 06-29-2024 12:57-0400 Body temperature 97 [degF] Rico Coy MD Work Phone: [facility] 06-29-2024 12:57-0400 Body weight 89.54 kg Rico Coy MD Work Phone: [facility] 06-29-2024 12:57-0400 Diastolic blood pressure 80 mm[Hg] Rico Coy MD Work Phone: [facility] 06-29-2024 12:57-0400 Heart rate 85 /min Rico Coy MD Work Phone: [facility] 06-29-2024 12:57-0400 Systolic blood pressure 119 mm[Hg] Rico Coy MD Work Phone: [facility] 05-02-2024 15:50-0400 Diastolic blood pressure 63 mm[Hg] Geovany Ventura MD Work Phone: [facility] 05-02-2024 15:50-0400 Heart rate 60 /min Geovany Ventura MD Work Phone: [facility] 05-02-2024 15:50-0400 Respiratory rate 16 /min Geovany Ventura MD Work Phone: [facility] 05-02-2024 15:50-0400 SaO2% (BldA) [Mass fraction] 95 % Geovany Ventura MD Work Phone: [facility] 05-02-2024 15:50-0400 Systolic blood pressure 120 mm[Hg] Geovany Ventura MD Work Phone: [facility] 05-02-2024 12:54-0400 Body height 165.1 cm Geovany Ventura MD Work Phone: [facility] 05-02-2024 12:54-0400 Body mass index (BMI) [Ratio] 33.2 kg/m2 Geovany Ventura MD Work Phone: [facility] 05-02-2024 12:54-0400 Body temperature 95.9 [degF] Geovany Ventura MD Work Phone: [facility] 05-02-2024 12:54-0400 Body weight 90.5 kg Geovany Ventura MD Work Phone: [facility] 04-19-2024 09:41-0400 Body height 165.1 cm Geovany Ventura MD Work Phone: [facility] 04-19-2024 09:41-0400 Body mass index (BMI) [Ratio] 32.68 kg/m2 Geovany Ventura MD Work Phone: [facility] 04-19-2024 09:41-0400 Body weight 89.09 kg Geovany Ventura MD Work Phone: [facility] 04-19-2024 09:41-0400 Diastolic blood pressure 60 mm[Hg] Geovany Ventura MD Work Phone: [facility] 04-19-2024 09:41-0400 Heart rate 52 /min Geovany Ventura MD Work Phone: [facility] 04-19-2024 09:41-0400 Systolic blood pressure 90 mm[Hg] Geovany Ventura MD Work Phone: [facility] 03-15-2024 13:42-0400 Body height 165.1 cm Gilda Leong MD Work Phone: [facility] 03-15-2024 13:42-0400 Body mass index (BMI) [Ratio] 32.92 kg/m2 Gilda Leong MD Work Phone: [facility] 03-15-2024 13:42-0400 Body weight 89.72 kg Gilda Leong MD Work Phone: [facility] 03-15-2024 13:42-0400 Diastolic blood pressure 60 mm[Hg] Gilda Leong MD Work Phone: [facility] 03-15-2024 13:42-0400 Heart rate 65 /min Gilda Leong MD Work Phone: [facility] 03-15-2024 13:42-0400 Systolic blood pressure 100 mm[Hg] Gilda Leong MD Work Phone: [facility] 02-09-2024 09:45-0400 Body height 166.4 cm Ramiro gama MD Work Phone: [facility] 02-09-2024 09:45-0400 Body mass index (BMI) [Ratio] 32.6 kg/m2 Ramiro Bhandari MD Work Phone: [facility] 02-09-2024 09:45-0400 Body weight 90.22 kg Ramiro gama MD Work Phone: [facility] 02-09-2024 09:45-0400 Diastolic blood pressure 90 mm[Hg] Ramiro Bhandari MD Work Phone: [facility] 02-09-2024 09:45-0400 Heart rate 58 /min Ramiro gama MD Work Phone: [facility] 02-09-2024 09:45-0400 Systolic blood pressure 138 mm[Hg] Ramiro Bhandari MD Work Phone: [facility] 02-08-2024 13:59-0400 Body height 165.1 cm Oliver Sanchez Work Phone: [facility] 02-08-2024 13:59-0400 Body mass index (BMI) [Ratio] 31.45 kg/m2 Oliver Omoregie PA-C Work Phone: [facility] 02-08-2024 13:59-0400 Body weight 85.73 kg Oliver Omoregie PA- C Work Phone: [facility] 02-08-2024 13:59-0400 Diastolic blood pressure 84 mm[Hg] Oliver Omoregie PA-C Work Phone: [facility] 02-08-2024 13:59-0400 Heart rate 92 /min Oliver Omoregie PA- C Work Phone: [facility] 02-08-2024 13:59-0400 SaO2% (BldA) [Mass fraction] 94 % Oliver Omoregie PA-C Work Phone: [facility] 02-08-2024 13:59-0400 Systolic blood pressure 119 mm[Hg] Oliver Omoregie PA-C Work Phone: [facility] 01-20-2024 11:02-0400 Body temperature 98.24 [degF] [facility] 01-20-2024 11:02-0400 Diastolic blood pressure 76 mm[Hg] [facility] 01-20-2024 11:02-0400 Heart rate 64 /min [facility] 01-20-2024 11:02-0400 Respiratory rate 18 /min [facility] 01-20-2024 11:02-0400 SaO2% (BldA) [Mass fraction] 94 % [facility] 01-20-2024 11:02-0400 Systolic blood pressure 135 mm[Hg] [facility] 01-14-2024 09:31-0500 Diastolic blood pressure 47 mm[Hg] [address] 01-14-2024 09:31-0500 Heart rate 56 /min [address] 01-14-2024 09:31-0500 Respiratory rate 22 /min Aletha 1 [facility] 01-14-2024 09:31-0500 Systolic blood pressure 105 mm[Hg] Aletha 1 [facility] 01-14-2024 08:46-0500 SaO2% (BldA) [Mass fraction] 100 % Aletha 1 [facility] 01-13-2024 10:26-0500 Diastolic blood pressure 50 mm[Hg] Jordan Law MD Work Phone: [facility] 01-13-2024 10:26-0500 Heart rate 50 /min Jordan Law MD Work Phone: [facility] 01-13-2024 10:26-0500 Systolic blood pressure 86 mm[Hg] Jordan Law MD Work Phone: [facility] 12-15-2023 14:08-0500 Body mass index (BMI) [Ratio] 35.25 kg/m2 Ramiro Bhandari MD Work Phone: [facility] 12-15-2023 14:08-0500 Body weight 90.27 kg Ramiro gama MD Work Phone: [facility] 12-15-2023 14:08-0500 Diastolic blood pressure 76 mm[Hg] Ramiro Bhandari MD Work Phone: [facility] 12-15-2023 14:08-0500 Heart rate 60 /min Ramiro gama MD Work Phone: [facility] 12-15-2023 14:08-0500 Systolic blood pressure 126 mm[Hg] Ramiro Bhandari MD Work Phone: [facility] 12-10-2023 09:15-0500 Diastolic blood pressure 54 mm[Hg] Geovany Ventura MD Work Phone: [facility] 12-10-2023 09:15-0500 Heart rate 55 /min Geovany Ventura MD Work Phone: [facility] 12-10-2023 09:15-0500 Respiratory rate 17 /min Geovany Ventura MD Work Phone: [facility] 12-10-2023 09:15-0500 SaO2% (BldA) [Mass fraction] 94 % Geovany Ventura MD Work Phone: [facility] 12-10-2023 09:15-0500 Systolic blood pressure 134 mm[Hg] Geovany Ventura MD Work Phone: [facility] 12-10-2023 06:06-0500 Body height 160 cm Geovany Ventura MD Work Phone: [facility] 12-10-2023 06:06-0500 Body mass index (BMI) [Ratio] 35.26 kg/m2 Geovany Ventura MD Work Phone: [facility] 12-10-2023 06:06-0500 Body temperature 97.3 [degF] Geovany Ventura MD Work Phone: [facility] 12-10-2023 06:06-0500 Body weight 90.3 kg Geovany Ventura MD Work Phone: [facility] 11-09-2023 12:44-0500 Body height 158.8 cm Jayce Roof DO Work Phone: [facility] 11-09-2023 12:44-0500 Body mass index (BMI) [Ratio] 36.18 kg/m2 Jayce Roof DO Work Phone: [facility] 11-09-2023 12:44-0500 Body temperature 97.59 [degF] Jayce Roof DO Work Phone: [facility] 11-09-2023 12:44-0500 Body weight 91.17 kg Jayce Roof DO Work Phone: [facility] 10-12-2023 08:59-0500 Body height 158.8 cm Jayce Roof DO Work Phone: [facility] 10-12-2023 08:59-0500 Body mass index (BMI) [Ratio] 36.32 kg/m2 Jayce Roof DO Work Phone: [facility] 10-12-2023 08:59-0500 Body temperature 97.11 [degF] Jayce Roof DO Work Phone: [facility] 10-12-2023 08:59-0500 Body weight 91.54 kg Jayce Roof DO Work Phone: [facility] 09-07-2023 10:01-0400 Body height 165.7 cm Oliver Omoregie PA- C Work Phone: [facility] 09-07-2023 10:01-0400 Body mass index (BMI) [Ratio] 33.01 kg/m2 Oliver Omoregie PA-C Work Phone: [facility] 09-07-2023 10:01-0400 Body weight 90.67 kg Oliver Omoregie PA- C Work Phone: [facility] 09-07-2023 10:01-0400 Diastolic blood pressure 50 mm[Hg] Oliver Omoregie PA-C Work Phone: [facility] 09-07-2023 10:01-0400 Heart rate 60 /min Oliver Omoregie PA- C Work Phone: [facility] 09-07-2023 10:01-0400 SaO2% (BldA) [Mass fraction] 95 % Oliver Omoregie PA-C Work Phone: [facility] 09-07-2023 10:01-0400 Systolic blood pressure 87 mm[Hg] Oliver Omoregie PA-C Work Phone: [facility] 09-06-2023 12:02-0400 Diastolic blood pressure 67 mm[Hg] Jordan Law MD Work Phone: [facility] 09-06-2023 12:02-0400 Heart rate 69 /min Jordan Law MD Work Phone: [facility] 09-06-2023 12:02-0400 Systolic blood pressure 134 mm[Hg] Jordan Law MD Work Phone: [facility] 09-01-2023 08:45-0400 Body height 168.91 cm Kamkilo Mercerban Other [employer] Other 09-01-2023 08:45-0400 Body mass index (BMI) [Ratio] 32.11 kg/m2 Kamal Chaban Other [employer] Other 09-01-2023 08:45-0400 Body temperature 97.6 [degF] Kamal Chaban Other [employer] Other 09-01-2023 08:45-0400 Body weight 91.63 kg Kamal Sylvieban Other [employer] Other 09-01-2023 08:45-0400 Diastolic blood pressure 72 mm[Hg] Kamal Sylvieban Other [employer] Other 09-01-2023 08:45-0400 Respiratory rate 20 /min Kamal Chaban Other [employer] Other 09-01-2023 08:45-0400 SaO2% (BldA) [Mass fraction] 97 % Kamal Chaban Other [employer] Other 09-01-2023 08:45-0400 Systolic blood pressure 118 mm[Hg] Kamal Chaban Other [employer] Other 08-02-2023 21:56-0400 Body temperature 97.88 [degF] Tarah Escobar [facility] 08-02-2023 21:56-0400 Diastolic blood pressure 78 mm[Hg] Ernstinn Dokken [facility] 08-02-2023 21:56-0400 Heart rate 63 /min Gaylan Dokken [facility] 08-02-2023 21:56-0400 Respiratory rate 16 /min Gaylan Dokken [facility] 08-02-2023 21:56-0400 SaO2% (BldA) [Mass fraction] 96 % Tarah Bakeren [facility] 08-02-2023 21:56-0400 Systolic blood pressure 126 mm[Hg] Gaylan Dokken [facility] 07-01-2023 11:35-0400 Body temperature 98.42 [degF] [facility] 07-01-2023 11:35-0400 Diastolic blood pressure 62 mm[Hg] [facility] 07-01-2023 11:35-0400 Heart rate 99 /min [facility] 07-01-2023 11:35-0400 Respiratory rate 16 /min [facility] 07-01-2023 11:35-0400 SaO2% (BldA) [Mass fraction] 100 % [facility] 07-01-2023 11:35-0400 Systolic blood pressure 94 mm[Hg] [facility] 04-27-2023 09:23-0400 Body height 163.83 cm Mindy Morgan Work Phone: [facility] [address] DO Work Phone: 04-27-2023 09:23-0400 Body mass index (BMI) [Ratio] 34.48 kg/m2 Mindy Morgan Work Phone: [facility] [address] DO Work Phone: 04-27-2023 09:23-0400 Body surface area Derived from formula 1.98 m2 Mindy Morgan Work Phone: [facility] [address] DO Work Phone: 04-27-2023 09:23-0400 Body weight 92.53 kg Mindy Morgan Work Phone: [facility] [address] DO Work Phone: 04-27-2023 09:23-0400 Diastolic blood pressure 64 mm[Hg] Mindy Morgan Work Phone: [facility] [address] DO Work Phone: 04-27-2023 09:23-0400 Heart rate 71 /min Mindy Morgan Work Phone: [facility] [address] DO Work Phone: 04-27-2023 09:23-0400 Systolic blood pressure 98 mm[Hg] Mindy Morgan Work Phone: [facility] [address] DO Work Phone: 04-27-2023 09:23-0400 18 1 Mindy Morgan Work Phone: [facility] 305 DO Work Phone: Comment on above: PHQ-9 TS 02-09-2023 13:38-0400 Body height 167.64 cm Mindy Morgan Work Phone: GQ-Feuhujvhkm-Nhtpv [place] 2300 Work Phone: 02-09-2023 13:38-0400 Body mass index (BMI) [Ratio] 32.79 kg/m2 Mindy Morgan Work Phone: DY-Moplsjqzlu-Frltl [place] [address]00 Work Phone: 02-09-2023 13:38-0400 Body surface area Derived from formula 2.01 m2 Mindy Morgan Work Phone: IW-Uxbdxogyql-Cefku [place] [address]00 Work Phone: 02-09-2023 13:38-0400 Body weight 92.14 kg Mindy Morgan Work Phone: XR-Ltjkgksimt-Kgvzi [place] 2300 Work Phone: 02-09-2023 13:38-0400 Diastolic blood pressure 63 mm[Hg] Mindy Morgan Work Phone: NM-Bzxccrxcyr-Ceffe [place] [address]00 Work Phone: 02-09-2023 13:38-0400 Heart rate 80 /min Mindy Morgan Work Phone: XA-Uvmfrzoedg-Hnvfm [place] 2300 Work Phone: 02-09-2023 13:38-0400 SaO2% (BldA) [Mass fraction] 89 % Mindy Morgan Work Phone: EF-Wspcsgsjvd-Kpqxf [place] [address]00 Work Phone: 02-09-2023 13:38-0400 Systolic blood pressure 98 mm[Hg] Mindy Morgan Work Phone: XO-Oskwfzdhjr-Iofsb [place] [address]00 Work Phone: 02-09-2023 13:38-0400 0 1 Mindy Morgan Work Phone: BT-Wwbkmqxmlh-Ejapk [place] [address]00 Work Phone: Comment on above: [employer] 10-07-2022 09:46-0500 Blood Pressure Location Gilberto ESTRADA [facility] 10-07-2022 09:46-0500 Diastolic blood pressure 63 mm[Hg] Gilberto ESTRADA [facility] 10-07-2022 09:46-0500 Heart rate 83 /min Gilberto STANG [facility] 10-07-2022 09:46-0500 Respiratory rate 18 /min Gilberto ESTRADA [facility] 10-07-2022 09:46-0500 SaO2% (BldA) [Mass fraction] 100 % Gilberto ESTRADA [facility] 10-07-2022 09:46-0500 Systolic blood pressure 115 mm[Hg] Gilberto ESTRADA [facility] 09-24-2022 16:56-0500 Body temperature 98.06 [degF] Prosper Hancock [facility] 09-24-2022 16:56-0500 Diastolic blood pressure 70 mm[Hg] Prosper Hancock [facility] 09-24-2022 16:56-0500 Heart rate 76 /min Prosper Hancock [facility] 09-24-2022 16:56-0500 Respiratory rate 16 /min Prosper Hancock [facility] 09-24-2022 16:56-0500 SaO2% (BldA) [Mass fraction] 98 % Prosper Hancock [facility] 09-24-2022 16:56-0500 Systolic blood pressure 128 mm[Hg] Prosper Hancock [facility] 09-17-2022 13:34-0500 Body height 167.64 cm Mindy Morgan Work Phone: [facility] 201 Work Phone: 09-17-2022 13:34-0500 Body mass index (BMI) [Ratio] 34.54 kg/m2 Mindy Morgan Work Phone: [facility] 201 Work Phone: 09-17-2022 13:34-0500 Body surface area Derived from formula 2.06 m2 Mindy Morgan Work Phone: ZF-Xlinjajhb-Hefoob eld 201 Work Phone: 09-17-2022 13:34-0500 Body temperature 97 [degF] Mindy Morgan Work Phone: IS-Yorcafdcs-Mtbqhz eld 201 Work Phone: 09-17-2022 13:34-0500 Body weight 97.07 kg Mindy Morgan Work Phone: BT-Fgfybhvji-Vnttoi eld 201 Work Phone: 09-17-2022 13:34-0500 Diastolic blood pressure 58 mm[Hg] Mindy Morgan Work Phone: AQ-Zltyudfjd-Pjqake eld 201 Work Phone: 09-17-2022 13:34-0500 Heart rate 63 /min Mindy Morgan Work Phone: UO-Evvermtdw-Vrumev eld 201 Work Phone: 09-17-2022 13:34-0500 SaO2% (BldA) [Mass fraction] 95 % Mindy Morgan Work Phone: XW-Jsqclezel-Fkjqmd eld 201 Work Phone: 09-17-2022 13:34-0500 Systolic blood pressure 104 mm[Hg] Mindy Morgan Work Phone: OA-Bznltjudm-Rlcgxi eld 201 Work Phone: 09-17-2022 10:15-0500 Body height 168.91 cm Rose Mary [place] Other [employer] Other 09-17-2022 10:15-0500 Body mass index (BMI) [Ratio] 33.7 kg/m2 Davidkilo Cindy Other [employer] Other 09-17-2022 10:15-0500 Body temperature 97.4 [degF] Rose Mary Mercerban Other [employer] Other 09-17-2022 10:15-0500 Body weight 96.16 kg Rose Mary Mercerban Other [employer] Other 09-17-2022 10:15-0500 Diastolic blood pressure 68 mm[Hg] Rose Mary Mercerban Other [employer] Other 09-17-2022 10:15-0500 Respiratory rate 20 /min Rose Mary Mercerban Other [employer] Other 09-17-2022 10:15-0500 SaO2% (BldA) [Mass fraction] 100 % Rose Mary Mercerban Other [employer] Other 09-17-2022 10:15-0500 Systolic blood pressure 92 mm[Hg] Rose Mary Mercerban Other [employer] Other 09-04-2022 14:02-0400 Blood Pressure Location David Elsa [facility] 09-04-2022 14:02-0400 Diastolic blood pressure 63 mm[Hg] David Christofferson [facility] 09-04-2022 14:02-0400 Heart rate 79 /min David Christofferson [facility] 09-04-2022 14:02-0400 Respiratory rate 18 /min David Montagueofferson [facility] 09-04-2022 14:02-0400 SaO2% (BldA) [Mass fraction] 98 % David Torreserson [facility] 09-04-2022 14:02-0400 Systolic blood pressure 92 mm[Hg] David Hunter [facility] 07-16-2022 13:03-0400 Diastolic blood pressure 85 mm[Hg] Vickey Hicks MD Work Phone: [facility] 07-16-2022 13:03-0400 Heart rate 75 /min Vickey Hicks MD Work Phone: [facility] 07-16-2022 13:03-0400 Systolic blood pressure 136 mm[Hg] Vickey Hicks MD Work Phone: [facility] 07-11-2022 09:45-0400 Diastolic blood pressure 86 mm[Hg] Et3 [facility] 07-11-2022 09:45-0400 Heart rate 87 /min Et3 [facility] 07-11-2022 09:45-0400 Respiratory rate 16 /min Et3 [facility] 07-11-2022 09:45-0400 SaO2% (BldA) [Mass fraction] 98 % Et3 [facility] 07-11-2022 09:45-0400 Systolic blood pressure 133 mm[Hg] Et3 [facility] 04-15-2022 14:10-0400 Body temperature 97.88 [degF] Nain Pinto [facility] 04-15-2022 14:10-0400 Diastolic blood pressure 81 mm[Hg] Nain Pinto [facility] 04-15-2022 14:10-0400 Heart rate 63 /min Nain Pinto [facility] 04-15-2022 14:10-0400 Respiratory rate 18 /min Nain Pinto [facility] 04-15-2022 14:10-0400 SaO2% (BldA) [Mass fraction] 97 % Nain Pinto [facility] 04-15-2022 14:10-0400 Systolic blood pressure 140 mm[Hg] Nain Pinto [facility] 03-19-2022 13:49-0400 Body height 167.64 cm Mindy Morgan Work Phone: US-Jspmoqjbj-Cahozz eld 201 Work Phone: 03-19-2022 13:49-0400 Body mass index (BMI) [Ratio] 36.48 kg/m2 Mindy Morgan Work Phone: MW-Rfetgpaew-Jikkki eld 201 Work Phone: 03-19-2022 13:49-0400 Body surface area Derived from formula 2.11 m2 Mindy Morgan Work Phone: DS-Xfwdkshdv-Cilisr eld 201 Work Phone: 03-19-2022 13:49-0400 Body temperature 97.5 [degF] Mindy Morgan Work Phone: YB-Apmvfivrh-Jlbsxo eld 201 Work Phone: 03-19-2022 13:49-0400 Body weight 102.51 kg Mindy Morgan Work Phone: ZM-Ddlzmqklk-Lmgnzi eld 201 Work Phone: 03-19-2022 13:49-0400 Diastolic blood pressure 70 mm[Hg] Mindy Morgan Work Phone: CJ-Eywepifeg-Ykkzlp eld 201 Work Phone: 03-19-2022 13:49-0400 Heart rate 98 /min Mindy Morgan Work Phone: EG-Ywfvlmnyf-Ebkawo eld 201 Work Phone: 03-19-2022 13:49-0400 SaO2% (BldA) [Mass fraction] 95 % Mindy Morgan Work Phone: OO-Flvpcmhjf-Aqqghh eld 201 Work Phone: 03-19-2022 13:49-0400 Systolic blood pressure 130 mm[Hg] Mindy Morgan Work Phone: [facility] 201 Work Phone: 03-19-2022 10:45-0400 Body height 168.91 cm Rose Mary Mercerban Other [employer] Other 03-19-2022 10:45-0400 Body mass index (BMI) [Ratio] 35.61 kg/m2 Rose Mary Mercerban Other [employer] Other 03-19-2022 10:45-0400 Body temperature 98.1 [degF] Rose Mary Mercerban Other [employer] Other 03-19-2022 10:45-0400 Body weight 101.61 kg Rose Mary Mercerban Other [employer] Other 03-19-2022 10:45-0400 Diastolic blood pressure 84 mm[Hg] Rose Mary Mercerban Other [employer] Other 03-19-2022 10:45-0400 Respiratory rate 20 /min Rose Mary Mercerban Other [employer] Other 03-19-2022 10:45-0400 SaO2% (BldA) [Mass fraction] 94 % Rose Mary Mercerban Other [employer] Other 03-19-2022 10:45-0400 Systolic blood pressure 144 mm[Hg] Rose Mary Chaban Other [employer] Other 01-26-2022 12:17-0400 Body height 167.64 cm Mindy Morgan Work Phone: NI-Kychgayffiht-Ukv baxter Work Phone: 01-26-2022 12:17-0400 Body mass index (BMI) [Ratio] 37.93 kg/m2 Mindy Morgan Work Phone: ZC-Gootidviutcl-Sfx baxter Work Phone: 01-26-2022 12:17-0400 Body surface area Derived from formula 2.14 m2 Mindy Morgan Work Phone: UH-Bsolrrdnufdr-Qzx baxter Work Phone: 01-26-2022 12:17-0400 Body weight 106.6 kg Mindy Morgan Work Phone: PX-Oofsvbxxfnww-Agh baxter Work Phone: 01-26-2022 12:17-0400 Diastolic blood pressure 60 mm[Hg] Mindy Morgan Work Phone: AM-Ysgbjjwdwdch-Ajc baxter Work Phone: 01-26-2022 12:17-0400 Heart rate 80 /min Mindy Morgan Work Phone: OB-Lmgzjqwvloio-Oxg baxter Work Phone: 01-26-2022 12:17-0400 Respiratory rate 18 /min Mindy Morgan Work Phone: GP-Ctxxdqofklmc-Omh baxter Work Phone: 01-26-2022 12:17-0400 Systolic blood pressure 100 mm[Hg] Mindy Morgan Work Phone: WU-Wiheqnyroexi-Cyg baxter Work Phone: 12-16-2021 16:33-0500 Body height 167.64 cm Mindy Morgan Work Phone: FA-Lyextvjpsqhyn-VV C [place] [address] Work Phone: 12-16-2021 16:33-0500 Body mass index (BMI) [Ratio] 39.22 kg/m2 Mindy Morgan Work Phone: UI-Cpsnpgnwmjffa-HH C [place] [address] Work Phone: 12-16-2021 16:33-0500 Body surface area Derived from formula 2.17 m2 Mindy Morgan Work Phone: MW-Xjdyxqsqhfpva-XA C [place] [address] Work Phone: 12-16-2021 16:33-0500 Body weight 110.22 kg Mindy Morgan Work Phone: VM-Ivphtijdwzrmd-TM C [place] [address] Work Phone: 12-16-2021 16:33-0500 Diastolic blood pressure 80 mm[Hg] Mindy Morgan Work Phone: ZK-Hrlztagozqllr-PA C [place] [address] Work Phone: 12-16-2021 16:33-0500 Heart rate 82 /min Mindy Morgan Work Phone: WQ-Hgkglzydwdqgv-CA C [place] [address] Work Phone: 12-16-2021 16:33-0500 SaO2% (BldA) [Mass fraction] 96 % Mindy Morgan Work Phone: TJ-Teortjvydpnfg-HJ C [place] [address] Work Phone: 12-16-2021 16:33-0500 Systolic blood pressure 139 mm[Hg] Mindy Morgan Work Phone: UA-Hnreivqotyxhf-DA [address] [place] [address] Work Phone: 12-16-2021 16:33-0500 0 1 Mindy Morgan Work Phone: AO-Aksmnwwyqmlpt-EP [address] [place] [address] Work Phone: Comment on above: PainScale 10-14-2021 15:57-0500 Body height 167.64 cm Mindy Morgan Work Phone: JB-Poikthatwyowv-AW [address] [place] [address] Work Phone: 10-14-2021 15:57-0500 Body mass index (BMI) [Ratio] 40.69 kg/m2 Mindy Morgan Work Phone: ZE-Dywdmyqzvqmgi-KZ [address] [place] [address] Work Phone: 10-14-2021 15:57-0500 Body surface area Derived from formula 2.21 m2 Mindy Morgan Work Phone: WA-Ksvkdfmocnexy-WB [address] [place] [address] Work Phone: 10-14-2021 15:57-0500 Body weight 114.37 kg Mindy Morgan Work Phone: HQ-Vhwkejbdfjnvd-YW [address] [place] [address] Work Phone: 10-14-2021 15:57-0500 Diastolic blood pressure 64 mm[Hg] Mindy Morgan Work Phone: WK-Drehcfprxvikp-DF [address] [place] [address] Work Phone: 10-14-2021 15:57-0500 Heart rate 82 /min Mindy Morgan Work Phone: GF-Rhwxrhmadsejh-WB [address] [place] [address] Work Phone: 10-14-2021 15:57-0500 Respiratory rate 18 /min Mindy Morgan Work Phone: LV-Wapamydoesxcy-BY [address] [place] [address] Work Phone: 10-14-2021 15:57-0500 SaO2% (BldA) [Mass fraction] 94 % Mindy Morgan Work Phone: NZ-Rtjyfivojkmry-OX [address] [place] [address] Work Phone: 10-14-2021 15:57-0500 Systolic blood pressure 129 mm[Hg] Mnidy Morgan Work Phone: NI-Tqtcyabdaffid-OV [address] [place] [address] Work Phone: 10-14-2021 15:57-0500 7 1 Mindy Morgan Work Phone: ZC-Qindhgbrwzdoz-DY [address] [place] [address] Work Phone: Comment on above: PainScale 10-13-2021 12:58-0500 Body height 167.64 cm Mindy Morgan Work Phone: QW-Knutbzbsnyxj-HQX MC Work Phone: 10-13-2021 12:58-0500 Body mass index (BMI) [Ratio] 37.45 kg/m2 Mindy Morgan Work Phone: OE-Gueujduaawqu-WYY MC Work Phone: 10-13-2021 12:58-0500 Body surface area Derived from formula 2.13 m2 Mindy Morgan Work Phone: DV-Kyoameinblsa-GTJ MC Work Phone: 10-13-2021 12:58-0500 Body weight 105.24 kg Mindy Morgan Work Phone: SR-Ealhzxrsuzjt-SZH MC Work Phone: 10-13-2021 12:58-0500 Diastolic blood pressure 82 mm[Hg] Mindy Morgan Work Phone: YH-Cdyqxkmzjbor-HXN MC Work Phone: 10-13-2021 12:58-0500 Heart rate 98 /min Mindy Morgan Work Phone: CF-Ylmnpimtadgz-RDG MC Work Phone: 10-13-2021 12:58-0500 Respiratory rate 16 /min Mindy Morgan Work Phone: ON-Slelwztoswvt-SVY MC Work Phone: 10-13-2021 12:58-0500 Systolic blood pressure 143 mm[Hg] Mindy Morgan Work Phone: IW-Qfzhepebjujr-UIS MC Work Phone: 09-18-2021 13:27-0500 Body height 167.64 cm Mindytima Morgan Work Phone: FN-Xwdkfclnm-Wcpuok eld [address] Work Phone: 09-18-2021 13:27-0500 Body mass index (BMI) [Ratio] 37.45 kg/m2 Mindy Morgan Work Phone: KI-Vgnyemsrm-Anupdl [address] Work Phone: 09-18-2021 13:27-0500 Body surface area Derived from formula 2.13 m2 Mindy Morgan Work Phone: PQ-Dihpnkeif-Xxxtou el[address] Work Phone: 09-18-2021 13:27-0500 Body temperature 97.9 [degF] Mindy Morgan Work Phone: EN-Pbpascxll-Azsuqu [address] Work Phone: 09-18-2021 13:27-0500 Body weight 105.24 kg Mindy Morgan Work Phone: DE-Pbwfuwyof-Ihloqf eld [address] Work Phone: 09-18-2021 13:27-0500 Diastolic blood pressure 60 mm[Hg] Mindy Morgan Work Phone: ZR-Uzzrsdwyg-Oiugca eld [address] Work Phone: 09-18-2021 13:27-0500 Heart rate 98 /min Mindy Morgan Work Phone: IV-Pljkfxahl-Cddmxb eld 201 Work Phone: 09-18-2021 13:27-0500 SaO2% (BldA) [Mass fraction] 98 % Mindy Morgan Work Phone: OR-Xyuahafro-Ndvxmm el[address] Work Phone: 09-18-2021 13:27-0500 Systolic blood pressure 130 mm[Hg] Mindy Morgan Work Phone: KL-Oadwvpxdg-Vxibpp eld 201 Work Phone: 09-18-2021 10:45-0500 Body height 168.91 cm Rose Mary Mercerban Other [employer] Other 09-18-2021 10:45-0500 Body mass index (BMI) [Ratio] 38.63 kg/m2 Rose Mary Mercerban Other [employer] Other 09-18-2021 10:45-0500 Body temperature 98.1 [degF] Rose Mary Mercerban Other [employer] Other 09-18-2021 10:45-0500 Body weight 110.22 kg Rose Mary Mercerban Other [employer] Other 09-18-2021 10:45-0500 Diastolic blood pressure 66 mm[Hg] Rose Mary Mercerban Other [employer] Other 09-18-2021 10:45-0500 Respiratory rate 20 /min Rose Mary Mercerban Other [employer] Other 09-18-2021 10:45-0500 SaO2% (BldA) [Mass fraction] 95 % Rose Mary Mercerban Other [employer] Other 09-18-2021 10:45-0500 Systolic blood pressure 138 mm[Hg] Rose Mary Mercerban Other [employer] Other 07-31-2021 13:03-0400 Body height 167.64 cm Mindy Morgan Work Phone: LY-Luhotokhh-Wuhqlu el[address] Work Phone: 07-31-2021 13:03-0400 Body mass index (BMI) [Ratio] 40.19 kg/m2 Mindy Morgan Work Phone: FU-Swuxliqwo-Zaxeqh el[address] 201 Work Phone: 07-31-2021 13:03-0400 Body surface area Derived from formula 2.2 m2 Mindy Morgan Work Phone: QC-Wolmxnnif-Fgdgcc el[address] Work Phone: 07-31-2021 13:03-0400 Body temperature 96 [degF] Mindy Morgan Work Phone: RH-Iqzyyllel-Wnrwam el[address] 201 Work Phone: 07-31-2021 13:03-0400 Body weight 112.95 kg Mindy Morgan Work Phone: OM-Kaqrlrjsv-Xvqdxr eld 201 Work Phone: 07-31-2021 13:03-0400 Diastolic blood pressure 50 mm[Hg] Mindy Morgan Work Phone: SO-Qamdkhfzx-Ldrphw el[address] 201 Work Phone: 07-31-2021 13:03-0400 Heart rate 92 /min Mindy Morgan Work Phone: RT-Xanpamoul-Malugi el[address] Work Phone: 07-31-2021 13:03-0400 SaO2% (BldA) [Mass fraction] 93 % Mindy Morgan Work Phone: OF-Kinqtqdww-Pflaia el[address] 201 Work Phone: 07-31-2021 13:03-0400 Systolic blood pressure 120 mm[Hg] Mindy Morgan Work Phone: JM-Gpokmafrh-Aclndu [address] Work Phone: 05-29-2021 10:28-0400 Body height 167.64 cm Mindy Morgan Work Phone: JY-Ekfwntvjz-Lybpnz el[address] Work Phone: 05-29-2021 10:28-0400 Body mass index (BMI) [Ratio] 35.51 kg/m2 Mindy Morgan Work Phone: AN-Fknandzzp-Wqsfgs el[address] Work Phone: 05-29-2021 10:28-0400 Body surface area Derived from formula 2.08 m2 Mindy Morgan Work Phone: HW-Lustutgfx-Gcsqft el[address] 201 Work Phone: 05-29-2021 10:28-0400 Body temperature 95.4 [degF] Mindy Morgan Work Phone: AC-Rnehpkgoh-Fwmhxd el[address] 201 Work Phone: 05-29-2021 10:28-0400 Body weight 99.79 kg Mindy Morgan Work Phone: MY-Evuomsbec-Tomucl el[address] 201 Work Phone: 05-29-2021 10:28-0400 Diastolic blood pressure 87 mm[Hg] Mindy Morgan Work Phone: XY-Eeuqfdmlc-Oscfqd el[address] 201 Work Phone: 05-29-2021 10:28-0400 Systolic blood pressure 118 mm[Hg] Mindy Morgan Work Phone: OT-Hinfqzfbu-Eevuxo el[address] 201 Work Phone: 04-22-2021 15:17-0400 Body height 167.64 cm Mindy Morgan Work Phone: MD-Pghwbnlroepug-BG [address] [place] [address] Work Phone: 04-22-2021 15:17-0400 Body mass index (BMI) [Ratio] 37.12 kg/m2 Mindy Morgan Work Phone: HA-Glnzoukpteajp-IA [address] [place] [address] Work Phone: 04-22-2021 15:17-0400 Body surface area Derived from formula 2.12 m2 Mindy Morgan Work Phone: RZ-Wuldagnuidntx-LR [address] [place] [address] Work Phone: 04-22-2021 15:17-0400 Body weight 104.33 kg Mindy Morgan Work Phone: DA-Pexsopxkyfqsh-GF [address] [place] [address] Work Phone: 04-22-2021 15:17-0400 Diastolic blood pressure 66 mm[Hg] Mindy Morgan Work Phone: WP-Zbaganrbzajrf-MV [address] [place] [address] Work Phone: 04-22-2021 15:17-0400 Heart rate 90 /min Mindy Morgan Work Phone: AK-Dyixzukzyrrla-NX [address] [place] [address] Work Phone: 04-22-2021 15:17-0400 SaO2% (BldA) [Mass fraction] 96 % Mindy Morgan Work Phone: OV-Rokeojkdypvlf-JT [address] [place] [address] Work Phone: 04-22-2021 15:17-0400 Systolic blood pressure 131 mm[Hg] Mindy Morgan Work Phone: AF-Xxupzemljkdib-DD [address] [place] [address] Work Phone: 07-23-2020 18:17-0400 BMI (Body Mass Index) 36.15 kg/m2 Oliver Omoregie QB-Vuiizvfahiktj-KT [address] [place] [address] Work Phone: 07-23-2020 18:17-0400 Body weight 101.61 kg Oliver Omoregie MG-Endocrinolog y-CM [address] [place] [address] Work Phone: 07-23-2020 18:17-0400 BP Diastolic 63 mm[Hg] Oliver Omoregie MG-Endocrinolog y-CM [address] [place] [address] Work Phone: Comment on above: Location: E; Position: Sitting 07-23-2020 18:17-0400 BP Systolic 128 mm[Hg] Oliver Omoregie MG-Endocrinolog y-CM [address] [place] [address] Work Phone: Comment on above: Location: LUE; Position: Sitting 07-23-2020 18:17-0400 BSA (Body Surface Area) 2.1 m2 Oliver Omoregie MK-Gfjdufeqfwbrc-OE [address] [place] [address] Work Phone: 07-23-2020 18:17-0400 Height 167.64 cm Oliver Omoregie MG-Endocrinolog y-CM [address] [place] [address] Work Phone: 07-23-2020 18:17-0400 Pulse (Heart Rate) 92 /min Oliver Omoregie MG-Endocrino logy-CM C [place] [address] Work Phone: 07-23-2020 18:17-0400 Pulse Oximetry 95 % Oliver Omoregie MG-Endocrinolog y-CM [address] [place] [address] Work Phone: Comment on above: Source: 05-15-2020 12:47-0400 BMI (Body Mass Index) 35.35 kg/m2 Anat Addie DP-Jubnzxtzsomsw-EA [address] [place] [address] Work Phone: 05-15-2020 12:47-0400 Body weight 99.34 kg Anat Addie MG-Endocrinol ogy-CM [address] [place] [address] Work Phone: 05-15-2020 12:47-0400 BP Diastolic 56 mm[Hg] Anat Addie MG-Endocrinol ogy-CM [address] [place] [address] Work Phone: Comment on above: Location: LUE; Position: Sitting 05-15-2020 12:47-0400 BP Systolic 107 mm[Hg] Anat Addie MG-Endocrinol ogy-CM C [place] [address] Work Phone: Comment on above: Location: LUE; Position: Sitting 05-15-2020 12:47-0400 BSA (Body Surface Area) 2.08 m2 Anat Addie FW-Hoilzamdfzgbz-SA [address] [place] [address] Work Phone: 05-15-2020 12:47-0400 Pulse (Heart Rate) 81 /min Anat Real MG-Endocri nology-CM [address] [place] [address] Work Phone: 05-15-2020 12:47-0400 4 1 Anat Real MG-Endocrinol ogy-CM [address] [place] [address] Work Phone: Comment on above: Pain Scale 02-27-2020 23:10-0400 BMI (Body Mass Index) 34.06 kg/m2 Oliver Omoregie DR-Mtcqxmpbohdmn-TS [address] [place] [address] Work Phone: 02-27-2020 23:10-0400 Body weight 95.71 kg Oliver Omoregie MG-Endocrinolog y-CM [address] [place] [address] Work Phone: 02-27-2020 23:10-0400 BSA (Body Surface Area) 2.05 m2 Oliver Omoregie WI-Qoifevypqqomm-EV [address] [place] [address] Work Phone: 02-27-2020 14:35-0400 Height 167.64 cm Oliver Omoregie MG-Endocrinolog y-CM [address] [place] [address] Work Phone: 01-16-2020 15:15-0400 BMI (Body Mass Index) 35.01 kg/m2 Narciso Brown KU-Iupsunhyehrbf-QX [address] [place] [address] Work Phone: 01-16-2020 15:15-0400 Body weight 98.39 kg Narciso Brown MG-Endocrinology -CM [address] [place] [address] Work Phone: 01-16-2020 15:15-0400 BP Diastolic 63 mm[Hg] Narciso Brown MG-Endocrinology -CM [address] [place] [address] Work Phone: Comment on above: Location: RUE; Position: Sitting 01-16-2020 15:15-0400 BP Systolic 125 mm[Hg] Narciso Brown MG-Endocrinology -CM [address] [place] [address] Work Phone: Comment on above: Location: RUE; Position: Sitting 01-16-2020 15:15-0400 BSA (Body Surface Area) 2.07 m2 Narciso Brown MW-Zqnbxlyweokkw-AP [address] [place] [address] Work Phone: 01-16-2020 15:15-0400 Height 167.64 cm Narciso Funez MG-Endocrinology -CM C [place] [address] Work Phone: 01-16-2020 15:15-0400 Pulse (Heart Rate) 89 /min Narciso Funez MG-Endocrinol ogy-CM C [employer] [address] Work Phone: 10-17-2019 15:03-0500 BMI (Body Mass Index) 35.93 kg/m2 Narciso Funez XT-Qyjbndzfomjcv-Cw [facility] Work Phone: 10-17-2019 15:03-0500 Body weight 100.97 kg Narciso [facility]-Endocrinology -Ch [facility] Work Phone: 10-17-2019 15:03-0500 BP Diastolic 60 mm[Hg] Narciso [facility]-Endocrinology -Ch [facility] Work Phone: Comment on above: Location: LUE; Position: Sitting 10-17-2019 15:03-0500 BP Systolic 125 mm[Hg] Narciso [facility]-Endocrinology -Ch [facility] Work Phone: Comment on above: Location: LUE; Position: Sitting 10-17-2019 15:03-0500 BSA (Body Surface Area) 2.09 m2 [facility] Work Phone: 10-17-2019 15:03-0500 Height 167.64 cm Narciso [facility]-Endocrinology -Ch [facility] Work Phone: 10-17-2019 15:03-0500 Pulse (Heart Rate) 68 /min Narciso Funez -Endocrinol ogy-[facility] Work Phone: 10-17-2019 15:03-0500 Pulse Oximetry 95 % Narciso [facility]-Endocrinology -Ch [facility] Work Phone: 07-13-2019 16:25-0400 BMI (Body Mass Index) 36.48 kg/m2 [facility] Work Phone: 07-13-2019 16:25-0400 Body Temperature 98.1 [degF] [facility] [employer] Work Phone: 07-13-2019 16:25-0400 Body weight 102.51 kg [facility] [employer] Work Phone: 07-13-2019 16:25-0400 BP Diastolic 78 mm[Hg] [facility] [employer] Work Phone: 07-13-2019 16:25-0400 BP Systolic 126 mm[Hg] [facility] [employer] Work Phone: 07-13-2019 16:25-0400 BSA (Body Surface Area) 2.11 m2 [facility] [employer] Work Phone: 07-13-2019 16:25-0400 Height 167.64 cm [facility] [employer] Work Phone: 07-13-2019 16:25-0400 Pulse (Heart Rate) 70 /min [facility] [employer] Work Phone: Encounters Encounter Date Encounter Type Care Provider Facility Start: 08-10-2025 End: 08-11-2025 Evaluation and management of inpatient Steven Ott Facility:[facility] Start: 08-07-2025 End: 08-07-2025 Subsequent hospital visit by physician [facility] [address] [facility] Comment on above: Aortoiliac occlusive disease (Multi); Right subclavian artery occlusion Start: 08-07-2025 End: 08-07-2025 Subsequent hospital visit by physician [facility] [address] 1 [facility] Comment on above: Abnormal nuclear str ess test; Coronary artery disease involving [place] coronary artery of [place] heart, unspecified whether angina present Start: 08-07-2025 End: 08-07-2025 ambulatory RAMIRO SHARMANESSY [facility] Start: 07-31-2025 End: 08-01-2025 Emergency department patient visit Annemarie London Facility:[facility] Start: 07-22-2025 End: 07-22-2025 Emergency department patient visit Preet Ernst Facility:[facility] [place] [facility] Start: 07-18-2025 End: 07-18-2025 Bamboo flowsheet Suad Jones MD Work Phone: [facility] Start: 07-18-2025 End: 07-18-2025 Bamboo flowsheet Suad Jones MD [facility] Start: 07-18-2025 End: 07-18-2025 Office outpatient visit 25 minutes Suad Jones MD Work 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) (Primary Dx); Vitamin D deficiency; Hyperlipemia, mixed ; Encounter for dietary consultation; Class 2 severe obesity due to excess calories with serious comorbidity and body mass index (BMI) of 36.0 to 36.9 in adult (CMS-HCC); Hypercortisolism (HCC) Start: 07-18-2025 End: 07-18-2025 ambulatory SUAD JONES Not Available Start: 07-12-2025 End: 07-12-2025 ambulatory Ramiro RodriguezMartinez Facility:[facility] Start: 07-11-2025 End: 07-11-2025 Office outpatient visit 25 minutes Gilda Leong MD Work Phone: [facility] Comment on above: Partial symptomatic epilepsy with complex partial seizures, intractable, without status epilepticus (Primary Dx); 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 artery of both lower extremities with intermittent claudication; Intermittent claudication Start: 07-11-2025 End: 07-11-20[facility] Start: 07-10-2025 End: 07-10-2025 ambulatory Suad Jones Facility:[facility] Start: 07-06-2025 End: 07-06-2025 Emergency department patient visit Dana Engel Facility:[facility] [place] [facility] Start: 07-05-2025 End: 07-05-2025 [facility] Start: 06-26-2025 End: 06-26-2025 [facility] Start: 06-06-2025 End: 06-06-2025 ambulatory GEOVANY Rosado [facility] Start: 06-06-2025 End: 06-06-2025 Subsequent hospital visit by physician Aletha Leblanc [facility] Comment on above: Sinus node dysfuncti on (Multi); Cardiac pacemaker in situ Start: 06-04-2025 End: 06-04-2025 Office outpatient visit 25 minutes Kaley Westbrook MD Work Phone: [facility] Comment on above: Right subclavian art radu occlusion (Primary Dx); Hyperlipidemia LDL goal <100; HTN (hypertension), benign; Aortoiliac occlusive disease (Multi); Atherosclerosis of [place] artery of both lower extremities with intermittent claudication; BMI 38.0-38.9,adult; Drug abuse; H/O ETOH abuse; Current every day smoker; Intermittent claudication Start: 06-04-2025 End: 06-04-2025 ambulatory KALEY [facility] Ambulatory Start: 05-31-2025 End: 05-31-2025 Patient encounter procedure Charissa Seth DO Work Phone: [facility] Comment on above: Chronic pain of both knees (Primary Dx) Start: 05-31-2025 End: 05-31-2025 ambulatory CHARISSA SETH Not Available Start: 05-31-2025 End: 05-31-2025 ambulatory CHARISSA SETH Not Available Start: 05-30-2025 End: 05-30-2025 Bamboo flowsheet Suad Jones MD Work Phone: [facility] Start: 05-30-2025 End: 05-30-2025 Bamboo flowsheet Suad Jones MD Work Phone: [facility] Start: 05-30-2025 End: 05-30-2025 Office outpatient visit 40 minutes Suad Jones MD Work Phone: [facility] Comment on above: 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) (Primary Dx); Vitamin D deficiency; Hyperlipemia, mixed ; Encounter for dietary consultation; Class 2 severe obesity due to excess calories with serious comorbidity and body mass index (BMI) of 39.0 to 39.9 in adult ([facility]-HCC); Hypercortisolism (HCC) Start: 05-30-2025 End: 05-30-2025 ambulatory SUAD JONES Not Available Start: 05-25-2025 End: 05-25-2025 ambulatory Suad Jones Facility:[facility] Start: 05-15-2025 End: 05-15-2025 ambulatory ROGER JONES [facility] Start: 05-15-2025 End: 05-15-2025 Patient encounter procedure Roger Jones MD Work Phone: [facility] Comment on above: Carpal tunnel syndro me, left (Primary Dx); Carpal tunnel syndrome on right Start: 05-03-2025 End: 05-03-2025 Subsequent hospital visit by physician Aletha Saucedo 1 [facility] Comment on above: Seizures (Multi) Start: 05-03-2025 End: 05-03-2025 ambulatory GILDA العلي [facility] Start: 04-27-2025 End: 04-27-2025 Subsequent hospital visit by physician Aletha Nm 1 [facility] Comment on above: Arrived Coronary artery dise ase involving [place] coronary artery of [place] heart, unspecified whether angina present; Chest pain, unspecified type Occlusion and stenos is of bilateral carotid arteries Start: 04-27-2025 End: 04-27-2025 [facility] Start: 04-04-2025 End: 04-04-2025 Office outpatient visit 10 minutes Lenin Bajwa MD Work Phone: [facility] Comment on above: Carpal tunnel syndro me, bilateral Start: 04-04-2025 End: 04-04-2025 ambulatory LENIN BAJWA [facility] Start: 03-30-2025 End: 03-30-2025 ambulatory Ramiro Bhandari Facility:[facility] Start: 03-28-2025 End: 03-28-2025 Office outpatient visit 25 minutes Ramiro Bhandari MD Work Phone: [facility] Comment on above: Coronary artery dise ase involving [place] coronary artery of [place] heart, unspecified whether angina present; NSVT (nonsustained ventricular tachycardia) ([facility]); COPD with asthma (Multi); Atherosclerosis of 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 ([facility]); HTN (hypertension), benign; Hyperlipidemia LDL goal <100; Type 2 diabetes mellitus with other circulatory complication, without long-term current use of insulin; Bipolar 2 disorder, major depressive episode ([facility]); АННА on CPAP; Current every day smoker; Aortoiliac occlusive disease ([facility]); Occlusion and stenosis of bilateral carotid arteries; PAD (peripheral artery disease) Start: 03-28-2025 End: 03-28-2025 ambulatory RAMIRO SHARMANESSY [facility] Ambulatory Start: 03-19-2025 End: 03-19-2025 Patient encounter procedure Henry MARTIN Work Phone: [facility] Comment on above: Neck pain (Primary D x) Start: 03-19-2025 End: 03-19-2025 ambulatory HENRY GARCIA Not Available Start: 03-15-2025 End: 03-15-2025 Michele flowsheet Suad Jones MD Work Phone: [facility] Start: 03-15-2025 End: 03-15-2025 Michele flowsheet Suad Jones MD Work Phone: [facility] Start: 03-15-2025 End: 03-15-2025 Office outpatient visit 40 minutes Suad Jones MD Work Phone: [facility] Comment on above: 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 ([facility]/HCC) (Primary Dx); Vitamin D deficiency; Hyperlipemia, mixed (CMS/HCC); Encounter for dietary consultation; Class 2 severe obesity due to excess calories with serious comorbidity and body mass index (BMI) of 39.0 to 39.9 in adult (CMS/HCC); Hypercortisolism (CMS/HCC) Start: 03-15-2025 End: 03-15-2025 ambulatory SUAD JONES Not Available Start: 03-09-2025 End: 03-10-2025 Emergency department patient visit Mindy Morgan Facility:[facility] Start: 02-28-2025 End: 02-28-2025 Office outpatient visit 25 minutes Geovany Ventura MD Work Phone: [facility] Comment on above: Coronary artery dise ase involving [place] coronary artery of [place] heart, unspecified whether angina present (Primary Dx); NSVT (nonsustained ventricular tachycardia) (Multi); Current every day smoker; Sinus node dysfunction (Multi); High cholesterol; Cardiac pacemaker in situ; BMI 37.0-37.9, adult Start: 02-28-2025 End: 02-28-2025 Subsequent hospital visit by physician Aletha [facility] Comment on above: Cardiac pacemaker in situ Start: 02-28-2025 End: 02-28-2025 ambulatory GEOVANY VENTURA [facility] Start: 02-20-2025 ambulatory [facility] Start: 02-16-2025 End: 02-16-2025 Orders Only Jordan Law MD Work Phone: [facility] Comment on above: Occlusion and stenos is of unspecified carotid artery (Primary Dx); PAD (peripheral artery disease); Subclavian arterial stenosis Start: 02-14-2025 End: 02-14-2025 Office outpatient visit 25 minutes Ramiro Bhandari MD Work Phone: [facility] Comment on above: Coronary artery dise ase involving [place] coronary artery of [place] heart, unspecified whether angina present; NSVT (nonsustained ventricular tachycardia) (Multi); Status post placement of implantable loop recorder; Atherosclerosis of [place] artery of both lower extremities with intermittent claudication; 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 (Multi); HTN (hypertension), benign; Hyperlipidemia LDL goal <100; Diabetes mellitus type II, non insulin dependent (Multi); АННА on CPAP; Current every day smoker; Asthma-chronic obstructive pulmonary disease overlap syndrome (Multi); Bipolar 2 disorder, major depressive episode (Multi); Anxiety; Drug abuse; Chest pain, unspecified type Start: 02-14-2025 End: 02-14-2025 [facility] Start: 02-02-2025 End: 02-03-2025 ambulatory Mindy Morgan Facility:[facility] [place] [facility] Start: 02-02-2025 End: 02-03-2025 Patient encounter procedure Mindy Morgan [facility] Start: 01-18-2025 End: 01-18-2025 Office outpatient visit 25 minutes Gilda Leong MD Work Phone: [facility] Comment on above: Seizure (Multi) (Mariah jessie Dx); Partial symptomatic epilepsy with complex partial seizures, intractable, without status epilepticus (Multi); 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 (Multi); Diabetic polyneuropathy associated with type 2 diabetes mellitus (Multi) Start: 01-18-2025 End: 01-18-2025 ambulatory [facility] Ambulatory Start: 01-12-2025 End: 01-12-2025 Emergency department patient visit Ubaldo Nevarez Facility:[facility] [place] Start: 01-09-2025 End: 01-09-2025 Emergency department patient visit Ubaldo Nevarez [facility] Start: 12-28-2024 End: 12-28-2024 Office outpatient visit 25 minutes Rico Coy MD Work Phone: [facility] Comment on above: Diabetes mellitus ty pe II, non insulin dependent (Multi) (Primary Dx); Class 2 severe obesity with serious comorbidity and body mass index (BMI) of 35.0 to 35.9 in adult, unspecified obesity type; Multinodular goiter (nontoxic); Morbid obesity (Multi) Start: 12-28-2024 End: 12-28-2024 ambulatory [facility] Ambulatory Start: 11-14-2024 End: 11-14-2024 ambulatory [facility] Start: 11-14-2024 End: 11-14-2024 Subsequent hospital visit by physician Aletha Monroy [facility] Comment on above: Cardiac pacemaker in situ Start: 11-10-2024 End: 11-10-2024 ambulatory Mindy Morgan Facility:[facility] [place] Start: 11-10-2024 End: 11-10-2024 Patient encounter procedure Mindy Morgan [facility] Start: 10-23-2024 End: 10-23-2024 Office outpatient visit 10 minutes Lenin Bajwa MD Work Phone: [facility] Comment on above: Arnold-Chiari syndro me without spina bifida or hydrocephalus (Multi) (Primary Dx) Start: 10-23-2024 End: 10-23-2024 ambulatory LENIN Rivero AYDEE [facility] Ambulatory Start: 10-09-2024 End: 10-09-2024 Office outpatient visit 25 minutes Jayce Duke DO Work Phone: [facility] Comment on above: History of tympanost darrius tube placement (Primary Dx); Vertigo Start: 10-09-2024 End: 10-09-2024 ambulatory JAYCE DUKE [facility]ulatory Start: 10-04-2024 End: 10-04-2024 Emergency department patient visit Nain Pinto [facility] Start: 10-04-2024 End: 10-04-2024 Subsequent hospital visit by physician Aletha Neurodg [employer] [facility] Comment on above: Partial symptomatic epilepsy with complex partial seizures, intractable, without status epilepticus (Multi) Start: 10-04-2024 End: 10-04-2024 ambulatory [facility] Start: 09-06-2024 End: 09-06-2024 Office outpatient visit 25 minutes Gilda Leong MD Work Phone: [facility] Comment on above: Partial symptomatic epilepsy with complex partial seizures, intractable, without status epilepticus (Multi) (Primary Dx); 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 (Multi); Syringomyelia (Multi); Neuropathy; Migraine without aura and without status migrainosus, not intractable Start: 09-06-2024 End: 09-06-2024 ambulatory [facility] Start: 08-09-2024 End: 08-09-2024 Office outpatient visit 25 minutes Geovany Ventura MD Work Phone: [facility] Comment on above: Cardiac pacemaker in situ (Primary Dx); Sinus node dysfunction (Multi); Sick sinus syndrome (Multi); Pacemaker; NSVT (nonsustained ventricular tachycardia) (Multi); BMI 34.0-34.9,adult; Current every day smoker Start: 08-09-2024 End: 08-09-2024 Subsequent hospital visit by physician Aletha X-Ray 1 [facility] Comment on above: Pacemaker Start: 08-09-2024 End: 08-09-2024 ambulatory ANALIA M [facility] Start: 07-26-2024 End: 07-26-2024 Emergency department patient visit Nain Pinto [facility] Start: 06-29-2024 End: 06-29-2024 Office outpatient visit 40 minutes Rico Coy MD Work Phone: [facility] Comment on above: Vitamin D deficiency (Primary Dx); Diabetes mellitus type II, non insulin dependent (Multi); Multinodular goiter (nontoxic); Morbid obesity (Multi) Start: 05-17-2024 End: 05-17-2024 ambulatory Mindy Morgan Facility:[facility] [place] Start: 05-17-2024 End: 05-17-2024 Patient encounter procedure Mindy Morgan [facility] Start: 05-04-2024 End: 05-04-2024 Office outpatient visit 15 minutes Jayce Duke DO Work Phone: [facility] Comment on above: History of tympanost darrius tube placement (Primary Dx) Start: 05-03-2024 End: 05-03-2024 ambulatory ANALIA GRAY Facility:[facility] [place] Start: 05-03-2024 End: 05-03-2024 Patient encounter procedure ANALIA GRAY [facility] Start: 05-02-2024 End: 05-02-2024 Patient encounter status Geovany Ventura MD Work Phone: [facility] Work Phone: Start: 05-02-2024 End: 05-02-2024 Subsequent hospital visit by physician Geovany Ventura MD Work Phone: [facility] Comment on above: Sinus node dysfuncti on (Multi) (Primary Dx); Sick sinus syndrome (Multi); Bradycardia; Dizziness; NSVT (nonsustained ventricular tachycardia) (Multi); Pacemaker; Encounter for preprocedural cardiovascular examination; Postoperative pain Start: 04-19-2024 End: 04-19-2024 Office outpatient visit 40 minutes Geovany Ventura MD Work Phone: [facility] Comment on above: Wide-complex tachyca rdia (Primary Dx); Pacemaker reprogramming/check; Palpitations; Sinus node dysfunction (Multi); Status post placement of implantable loop recorder; BMI 32.0-32.9,adult; Current every day smoker; Sick sinus syndrome (Multi); Bradycardia; Dizziness Start: 04-19-2024 End: 04-19-2024 Subsequent hospital visit by physician Aletha [facility] Comment on above: Irregular menses Start: 03-31-2024 End: 03-31-2024 Subsequent hospital visit by physician Aletha [facility] Comment on above: Presence of other ca rdiac implants and grafts; Palpitations Start: 03-15-2024 End: 03-15-2024 Office outpatient visit 25 minutes Gilda Leong MD Work Phone: [facility] Comment on above: Arnold-Chiari syndro me without spina bifida or hydrocephalus (Multi) (Primary Dx); Partial symptomatic epilepsy with complex partial seizures, intractable, without status epilepticus (Multi); Syringomyelia (Multi); Chronic tension-type headache, intractable Start: 02-25-2024 End: 02-25-2024 Subsequent hospital visit by physician Aletha [facility] Comment on above: Presence of other ca rdiac implants and grafts; Palpitations Start: 02-09-2024 End: 02-09-2024 Office outpatient visit 25 minutes Ramiro Bhandari MD Work Phone: [facility] Comment on above: Chest pain, unspecif ied type; NSVT (nonsustained ventricular tachycardia) (CMS/HCC); Status post placement of implantable loop recorder; Atherosclerosis of [place] artery of both lower extremities with intermittent claudication (CMS/HCC); Aortoiliac occlusive disease (CMS/HCC); HTN (hypertension), benign; Hypercholesterolemia; Type 2 diabetes mellitus with other circulatory complication, without long-term current use of insulin (CMS/HCC); Diabetes mellitus type II, non insulin dependent (CMS/HCC); BMI 32.0-32.9,adult; Bipolar 2 disorder, major depressive episode (CMS/HCC); Anxiety; Drug abuse (CMS/HCC); 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 (CMS/HCC); Chronic obstructive pulmonary disease, unspecified COPD type (CMS/HCC); COPD with asthma (CMS/HCC); АННА on CPAP; Current every day smoker; Hyperlipidemia LDL goal <100 Start: 02-08-2024 End: 02-08-2024 Office outpatient visit 25 minutes Oliver Auguste PA-C Work Phone: [facility] Comment on above: Diabetes mellitus ty pe II, non insulin dependent (CMS/HCC) (Primary Dx); Diabetic polyneuropathy associated with type 2 diabetes mellitus (CMS/HCC); Multinodular goiter (nontoxic); Morbid obesity (CMS/HCC); Current every day smoker Start: 01-21-2024 End: 01-21-2024 Subsequent hospital visit by physician Aletha Leblanc [facility] Comment on above: Presence of other ca rdiac implants and grafts; Palpitations Start: 01-20-2024 End: 01-20-2024 Emergency department patient visit Dana Engel [facility] Start: 01-14-2024 End: 01-14-2024 Subsequent hospital visit by physician Aletha Rodrigues 1 [facility] Comment on above: Abnormal findings on diagnostic imaging of heart and coronary circulation Start: 01-14-2024 End: 01-14-2024 Subsequent hospital visit by physician Aletha Rodrigues 1 [facility] Comment on above: Chest pain, unspecif ied type; Shortness of breath; HTN (hypertension), benign; Hyperlipidemia LDL goal <100; Palpitations Start: 01-13-2024 End: 01-13-2024 Office outpatient visit 25 minutes Jordan Law MD Work Phone: [facility] Comment on above: PAD (peripheral ness ry disease) (HCC) (Primary Dx); Diabetes mellitus type 2 with peripheral artery disease (HCC); Hyperlipidemia, unspecified hyperlipidemia type; Pulmonary emphysema, unspecified emphysema type (HCC); [place]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); Morbid obesity (HCC); Primary hypertension; Cardiac arrhythmia due to premature depolarization, unspecified type Start: 01-13-2024 End: 01-13-2024 Subsequent hospital visit by physician Lilia Barnes F30 (I-Stat) Work Phone: Radiology Start: 12-22-2023 End: 12-22-2023 Subsequent hospital visit by physician Aletha Granda Echo/Vasc Room 2 [facility] Comment on above: HTN (hypertension), benign; Hypercholesterolemia; Hyperlipidemia LDL goal <100; Bruit of right carotid artery Start: 12-15-2023 End: 12-15-2023 Office outpatient visit 25 minutes Ramiro Bhandari MD Work Phone: [facility] Comment on above: Chest pain, unspecif ied type; Shortness of breath; HTN (hypertension), benign; Hypercholesterolemia; Atherosclerosis of [place] artery of both lower extremities with intermittent claudication ([facility]/HCC); Aortoiliac occlusive disease ([facility]); Hyperlipidemia LDL goal <100; Palpitations; Sinus node dysfunction ([facility]); Wide-complex tachycardia; Status post placement of implantable loop recorder; [place]ie's disease ([facility]); Diabetes mellitus type II, non insulin dependent ([facility]); 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 ([facility]); COPD with asthma; АННА on CPAP; Current every day smoker; BMI 35.0-35.9,adult; Bruit of right carotid artery Start: 12-10-2023 End: 12-10-2023 Subsequent hospital visit by physician Geovany Ventura MD Work Phone: [facility] Comment on above: Wide-complex tachyca rdia (Primary Dx); Syncope and collapse; Palpitations; Night sweats; Irregular menses Start: 11-30-2023 End: 11-30-2023 Subsequent hospital visit by physician Aletha Jovelv1 [employer] [facility] Comment on above: Wide-complex tachyca rdia Start: 11-25-2023 End: 11-25-2023 Office outpatient new 45 minutes Luis Armando Schwab MD Work Phone: [facility] Comment on above: Primary osteoarthrit is of both knees (Primary Dx) Start: 11-23-2023 End: 11-23-2023 Subsequent hospital visit by physician Rad External Film [facility] Comment on above: Arrived Start: 11-09-2023 End: 11-09-2023 Office outpatient visit 15 minutes Jayce Duke DO Work Phone: [facility] Comment on above: Acute nonsuppurative otitis media (Primary Dx) Start: 10-26-2023 End: 10-26-2023 ambulatory Rose Mary White Other [employer] Other Start: 10-26-2023 Telephone encounter Rose Mary White [facility] Start: 10-22-2023 End: 10-22-2023 ambulatory Rose Mary White Other [employer] Other Start: 10-22-2023 Telephone encounter Rose Mary White [facility] Start: 10-12-2023 End: 10-12-2023 ambulatory VI Newsome [facility] Start: 10-12-2023 End: 10-12-2023 Office outpatient new 45 minutes Jayce R Evelin HERNANDEZ Work Phone: [facility] Comment on above: Acute nonsuppurative otitis media (Primary Dx); Otorrhea of right ear; Impacted cerumen of right ear Start: 09-07-2023 End: 09-07-2023 Office outpatient visit 25 minutes Oliver Auguste PA-C Work Phone: [facility] Comment on above: Diabetes mellitus ty pe II, non insulin dependent (CMS/HCC) (Primary Dx); History of thyroid nodule; Other emphysema (CMS/HCC); Syringomyelia (CMS/HCC); Seizure disorder (CMS/HCC); Diabetic polyneuropathy associated with type 2 diabetes mellitus (CMS/HCC); Hypercortisolism (CMS/HCC); 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 (CMS/HCC) Start: 09-06-2023 Orders Only Jordan Law MD Work Phone: [facility] S[facility] Comment on above: Vasculopathy (Primar y Dx); Aortoiliac occlusive disease (HCC) Subclavian arterial stenosis (HCC) (Primary Dx) Start: 09-06-2023 End: 09-06-2023 Office outpatient visit 25 minutes Jordan Law MD Work Phone: [facility] Comment on above: Subclavian arterial stenosis (HCC) (Primary Dx); Aortoiliac occlusive disease (HCC); Primary hypertension; Controlled type 2 diabetes mellitus without complication, without long-term current use of insulin (HCC); Hyperlipidemia, unspecified hyperlipidemia type; Chronic pain of both knees Start: 09-01-2023 End: 09-01-2023 ambulatory Rose Mary White Other [employer] Other Start: 09-01-2023 Office outpatient vi sit 25 minutes Rose Mary White [facility] Start: 08-27-2023 ambulatory [facility] Facility :[facility] Start: 08-06-2023 ambulatory [facility] Facility:[facility] Start: 08-05-2023 ambulatory [facility] Start: 08-02-2023 End: 08-02-2023 Emergency department patient visit Tarah Escobar [facility] Start: 07-26-2023 End: 07-26-2023 ambulatory Rose Mary White Other [employer] Other Start: 07-26-2023 Telephone encounter Rose Mary White [facility] Start: 07-01-2023 End: 07-01-2023 Emergency department patient visit Bearrafael Celestin Toro [facility] Start: 06-04-2023 End: 06-04-2023 ambulatory SELF REFERRAL Facility:[facility] [place] Start: 06-04-2023 End: 06-04-2023 Patient encounter procedure SELF REFERRAL [facility] Start: 05-06-2023 End: 05-07-2023 Pre-admission assessment David Hunter [facility] Start: 04-27-2023 Office consultation new/estab patient 80 min Mindy Morgan Work Phone: -[facility] [address] DO Work Phone: Start: 04-14-2023 Rx Renewal Mindy Barnes bson Work Phone: UY-Ejmyyphducgne-YHD [place] [address] Work Phone: Start: 04-09-[address] Mindy Morgan Facility:[id number] Start: 03-10-2023 End: 03-10-2023 Patient encounter procedure Gilberto ESTRADA [facility] Start: 02-10-2023 Rx Renewal Mindy López Gi bson Work Phone: GE-Tcxenbuydgzre-DGG [place] [address] Work Phone: Start: 02-09-2023 AUDIT Mindy Maribel Gi bson Work Phone: IZ-Ihqmyzahhgpko-PCH [place] [address] Work Phone: Start: 02-09-2023 Office outpatient vi sit 25 minutes Mindy Morgan Work Phone: IJ-Ukudmmzhta-Ikxqhxd e 2300 Work Phone: Start: 02-08-2023 End: 02-08-2023 Patient encounter procedure Gilberto L MIRNACherrie [facility] Start: 01-13-2023 Chart Update Mindy Barnes bson Work Phone: PM-Npkhtnchhlok-YXOJI Work Phone: Start: 01-12-2023 End: 01-12-2023 ambulatory Rose Mary White Other [employer] Other Start: 01-12-2023 Telephone encounter Rose Mary White [facility] Start: 12-15-2022 Rx Renewal Mindy F Gi bson Work Phone: IC-Kjehopyscdrco-FYF [place] [address] Work Phone: Start: 12-15-2022 End: 12-15-2022 Patient encounter procedure Gilberto ESTRADA [facility] Start: 11-18-2022 End: 11-18-2022 Patient encounter procedure Gilberto ESTRADA [facility] Start: 11-15-2022 Rx Renewal Mindy Barnes melly Work Phone: PY-Kthmqoxfkigxu-LGJ [place] [address] Work Phone: Start: 10-27-2022 End: 10-27-2022 Patient encounter procedure Gilberto ESTRADA [facility] Start: 10-16-2022 End: 10-16-2022 Patient encounter procedure Mindy Morgan [facility] Start: 10-08-2022 End: 11-18-2022 Pre-admission assessment Gilberto ESTRADA [facility] Start: 10-07-2022 End: 10-07-2022 Patient encounter procedure Gilberto ESTRADA [facility] Start: 09-24-2022 Emergency department patient visit Facility:[facility] [place] Start: 09-24-2022 End: 09-24-2022 Emergency department patient visit Prosper Hancock [facility] Start: 09-22-2022 Office outpatient vi sit 25 minutes Mindy Morgan Work Phone: WX-Uemomqmaeuryj-TBC [place] [address] Work Phone: Start: 09-17-2022 End: 09-17-2022 ambulatory Kamal Chaban Other [employer] Other Start: 09-17-2022 Office outpatient vi sit 25 minutes Kamal Chaban [facility] Start: 09-14-2022 End: 09-14-2022 ambulatory Kamal Chaban Other [facility] [employer] Other Start: 09-14-2022 Telephone encounter Rose Mary White [facility] Start: 09-04-2022 End: 09-04-2022 Patient encounter procedure David Hunter [facility] Start: 08-19-2022 Rx Renewal Mindy Maribel Gi bson Work Phone: DL-Ahpigegjyagns-VFI [place] [address] Work Phone: Start: 08-10-2022 End: 08-30-2022 ambulatory UNKNOWN PROVIDER Facility:[facility] Start: 07-16-2022 End: 07-16-2022 Patient encounter procedure Vickey Hicks MD Work Phone: Vascular Surg Dept Comment on above: Aortoiliac occlusive disease (HCC) (Primary Dx); Nicotine use disorder, F17.2 Start: 07-16-2022 End: 07-16-2022 Subsequent hospital visit by physician Ct Main F30 (I-Stat) Work Phone: Radiology Start: 07-11-2022 End: 07-11-[address] NONE LISTED REQUEST Facility: Start: 07-11-2022 End: 07-11-2022 ambulatory [employer] [facility] Emergenc y Triage, Treat and Transport Start: 07-11-2022 End: 07-11-2022 Emergency department patient visit [employer] [facility] Emergency Triage, Treat and Transport Comment on above: Arrived Start: 06-18-2022 Rx Renewal Mindy Maribel Gi bson Work Phone: SD-Pzlmwvvdmysnp-WZR [place] [address] Work Phone: Start: 06-18-2022 Orders Only Vickey Mishra Work Phone: Vascular Surg Dept Comment on above: Vasculopathy (Primar y Dx) Appointment Start: 06-03-2022 End: 06-03-2022 Patient encounter procedure Mindy SHEETS [facility] Start: 05-19-2022 Orders Only Michael neal MD Work Phone: Vascular Surg Dept Comment on above: Aortoiliac occlusive disease (HCC) (Primary Dx) Start: 05-18-2022 End: 05-18-2022 ambulatory Kamal Chaban Other [employer] Other Start: 05-18-2022 Telephone encounter Kamkilo Mercerban [facility] Start: 05-12-2022 Phys/qhp telephone evaluation 21-30 min Mindy Morgan Work Phone: KH-Qhmdoccbxtfji-SJG [place] [address] Work Phone: Start: 05-08-2022 Telephone encounter Cristo Stout MD Work Phone: Vascular Surg Dept Comment on above: Patient Question Start: 04-15-2022 End: 04-15-2022 Emergency department patient visit Nain Luis Manuel Pinto [facility] Start: 04-13-2022 End: 04-13-2022 ambulatory Kamal Chaban Other [employer] Other Start: 04-13-2022 Telephone encounter Rose Mary White [facility] Start: 03-26-2022 Rx Renewal Mindy pickard Work Phone: HC-Zzbgfepfdntws-VBP [place] [address] Work Phone: Start: 03-19-2022 FUVGENERAL, Provider : Gilda Leong, Status: Pen, Time: 2:00 PM Mindy Morgan Work Phone: WQ-Viymscbtkxcov-HCH [place] [address] Work Phone: Start: 03-19-2022 End: 03-19-2022 ambulatory Kamal Chaban Other [employer] Other Start: 03-19-2022 Office outpatient vi sit 25 minutes Rose Mary White [facility] Start: 03-17-2022 Rx Renewal Mindy Barnes bson Work Phone: CE-Sdhxvkqoazjpv-CRH [place] [address] Work Phone: Start: 02-08-2022 Rx Renewal Mindy Barnes bson Work Phone: IR-Ltatgdobhansk-FLY [place] [address] Work Phone: Start: 01-26-2022 Postop follow up vis it related to original px Mindy Morgan Work Phone: JE-Jwouzqyyxato-Qurca rd Work Phone: Start: 12-18-2021 FUVGENERAL, Provider : Gilda Leong, Status: Pen, Time: 2:15 PM Mindy Morgan Work Phone: OT-Jaktegezrrnvv-TFP [place] [address] Work Phone: Start: 12-17-2021 Admission to [facility] Mindy Morgan Work Phone: VM-Spgomjdpgeiaq-ELD [place] [address] Work Phone: Start: 12-17-2021 Patient encounter procedure Mindy Morgan Work Phone: CH-Wyccjzktqxyg-ZIZZX Work Phone: Start: 12-16-2021 Patient encounter procedure Mindy Morgan Work Phone: RU-Ezeofynnfmdkw-RPE [place] [address] Work Phone: Start: 11-20-2021 End: 11-20-2021 ambulatory Rose Mary White Other [employer] Other Start: 11-20-2021 Telephone encounter Rose Mary Whiet [facility] Start: 11-11-2021 End: 11-11-2021 ambulatory Rose Mary White Other [employer] Other Start: 11-11-2021 Telephone encounter Rose Mary White [facility] Start: 11-05-2021 Rx Renewal Mindy López Gi bson Work Phone: LU-Fukjdvltssjir-ACT [place] [address] Work Phone: Start: 10-20-2021 Rx Renewal Mindy López Gi bson Work Phone: AK-Gagpbvcdghpmf-AEG [place] [address] Work Phone: Start: 10-14-2021 FUV, Provider: Oliver Auguste, Status: Pen, Time: 3:40 PM Mindy Pascualson Work Phone: LF-Rtugbojkyzuf-RFOOD Work Phone: Start: 10-14-2021 Most recent systolic blood pressure <130 mm hg Mindy Morgan Work Phone: UC-Ejnycvatpdzlk-MBD [place] [address] Work Phone: Start: 10-13-2021 Tobacco use cessatio n intermediate 3-10 minutes Mindy Morgan Work Phone: YW-Dmxycfrpfdrh-ELHME Work Phone: Start: 09-18-2021 Patient encounter procedure Mindy Morgan Work Phone: QF-Uktlejrfn-Wjilfneq d 201 Work Phone: Start: 09-18-2021 End: 09-18-2021 ambulatory Rose Mary White Other [employer] Other Start: 09-18-2021 Office outpatient vi sit 25 minutes Rose Mary White [facility] Start: 09-09-2021 End: 09-10-2021 Emergency department patient visit Robert Keyurgoran [facility] Psych Obs 04 Start: 08-14-2021 AUDIT Mindy López Gi bson Work Phone: ZZ-Whavovojr-Wkmlpcgc d 201 Work Phone: Start: 08-06-2021 Rx Renewal Mindy López Gi bson Work Phone: YS-Alwwezblldtbk-BLY [place] [address] Work Phone: Start: 08-01-2021 AUDIT Mindy Barnes bson Work Phone: QW-Tkcvnbczzvlsq-YCT [place] [address] Work Phone: Start: 07-31-2021 Office outpatient vi sit 25 minutes Mindy Morgan Work Phone: FK-Rsnqymcba-Jscftyqb d 201 Work Phone: Start: 07-24-2021 Rx Renewal Mindy López Gi bson Work Phone: YA-Blxaigmtbqvze-LHL [place] [address] Work Phone: Start: 06-26-2021 Rx Renewal Mindy Barnes bson Work Phone: XH-Ljftdxwlbhaee-HTP [place] [address] Work Phone: Start: 06-18-2021 AUDIT Mindy Barnes bson Work Phone: QW-Drqfdigsslfic-YBE [place] [address] Work Phone: Start: 06-10-2021 Rx Renewal Mindy Barnes bson Work Phone: XN-Ggomjsgfhsdbu-SCS [place] [address] Work Phone: Start: 05-30-2021 Chart Update Mindy Barnes bson Work Phone: SD-Rmvpvuxtw-Efdpybkt d 201 Work Phone: Start: 05-29-2021 Office outpatient ne w 60 minutes Mindy Morgan Work Phone: QO-Axaumaklp-Ydnsuhxj d 201 Work Phone: Start: 04-24-2021 Chart Update Mindy Barnes bson Work Phone: VL-Kxamxkbduwnmx-CZR [place] [address] Work Phone: Start: 04-22-2021 Current tobacco non-user cad cap copd pv dm Mindy Morgan Work Phone: TT-Vywxiwiarukdg-CEK [place] [address] Work Phone: Start: 10-22-2020 Patient encounter procedure Oliver Auguste XZ-Bteroyjtqoboo-PES [place] [address] Work Phone: Start: 07-23-2020 Patient encounter procedure Oliver Auguste MA-Pppskvkxtopam-OIS [place] [address] Work Phone: Start: 05-15-2020 Patient encounter procedure Anat Real GE-Ukpchfpctkzyv-FZS [place] [address] Work Phone: Start: 02-27-2020 Patient encounter procedure Oliver Auguste BV-Zfcourrfizobc-TYS [place] [address] Work Phone: Start: 01-16-2020 Patient encounter procedure Narciso Funez OE-Cldgnqjevzklo-QQR [place] [address] Work Phone: Start: 10-17-2019 [facility] encounter [facility]zil[facility]ucnwy[facility] Work Phone: Start: 07-13-2019 Patient encounter procedure [facility] [employer] Work Phone: Start: 08-27-2018 End: 08-28-2018 Emergency department patient visit [facility] Start: 07-19-2018 End: 07-20-2018 Emergency department patient visit [facility] Start: 07-06-2018 End: 07-07-2018 Patient encounter PROVIDER UNKNOWN Facility:[facility] Start: 12-02-2017 Patient encounter procedure [facility] Corporate Work Phone: Start: 10-14-2017 Patient encounter procedure [facility] [employer] Work Phone: Preoperative state Mindy lieberman Work Phone: UE-Oeshhqspgrnrb-LLM [place] [address] Work Phone: Procedures Date Procedure Procedure Detail Performing Clinician Start: 07-18-2025 Gluc bld gluc mntr dev cleared fda spec home use Suad Jones MD Work Phone: Start: 07-11-2025 Non-invas physiologic std extremity art 2 level Yulanbuck Westbrook MD Work Phone: Start: 06-06-2025 Rem interrog pm/ldls pm/ids <90 d tech review Geovany Ventura MD Work Phone: Start: 06-04-2025 Ecg routine ecg w/least 12 lds w/i&r Kaley Westbrook MD Work Phone: Start: 05-31-2025 Arthrocentesis aspir&/inj major jt/bursa w/o us Charissa Mejia Helijia DO Work Phone: Start: 05-31-2025 Radiologic examination knee 3 views Charissa Mejia Helijia DO Work Phone: Start: 05-30-2025 Gluc bld gluc mntr dev cleared fda spec home use Suad Jones MD Work Phone: Start: 05-25-2025 Lipid 1996 panel - Serum or Plasma Aletha Remote Start: 05-15-2025 US Abdomen Zbigniew H Trista SHANKS Work Phone: Start: 04-27-2025 Cv strs tst xers&/or rx cont ecg trcg only Ramiro Bhandari MD Work Phone: Start: 03-19-2025 Radex spine cervical 4 or 5 views Henry MARTIN Work Phone: Start: 03-15-2025 Gluc bld gluc mntr dev cleared fda spec home use Suad Jones MD Work Phone: Start: 02-28-2025 Program eval implantable in persn dual ld pacer Geovany Ventura MD Work Phone: Start: 08-09-2024 Ecg routine ecg w/least 12 lds w/i&r Geovany Ventura MD Work Phone: Start: 08-09-2024 Program eval implantable in persn dual ld pacer Analia Gray SECURITY ALARM TECHNICIAN-IT SYSTEMS ANALYST Work Phone: Start: 06-29-2024 Lipid 1996 panel - Serum or Plasma Rico Coy MD Work Phone: Start: 05-02-2024 Radiologic exam chest single view Analia Gray [facility] Work Phone: Start: 05-02-2024 Ecg routine ecg w/least 12 lds trcg only w/o i&r Analia Gray [facility] Work Phone: Start: 05-02-2024 Electrophysiology study Geovany Mishra Work Phone: Start: 05-02-2024 Echo tthrc r-t 2d w/wom-mode compl spec&colr d Analia Gray [facility] Work Phone: Start: 05-02-2024 Basic metabolic panel calcium total Analia Blackman [facility] Work Phone: Start: 05-02-2024 Ecg routine ecg w/least 12 lds trcg only w/o i&r Analia Blackman [facility] Work Phone: Start: 04-19-2024 Ecg routine ecg w/least 12 lds w/i&r Geovany Ventura MD Work Phone: Start: 04-19-2024 Interrog dev eval scrms phys/qhp in person Analia Gray [facility] Work Phone: Start: 03-31-2024 Rem interrog scrms <30 d phys/qhp Tyrel Ventura MD Work Phone: Start: 02-25-2024 Rem interrog scrms <30 d phys/qhp Tyrel Ventura MD Work Phone: Start: 01-21-2024 Inter devc remote 30d Geovany Ventura MD Work Phone: Start: 01-14-2024 Venography orbital rs&i Ramiro Bhandari MD Work Phone: Start: 01-14-2024 Cta hrt cornry art/bypass grfts contrst 3d post Ramiro Bhandari MD Work Phone: Start: 01-13-2024 Ct angio abd&plvis cntrst mtrl w/wo cntrst img Jordan Law MD Work Phone: Start: 01-13-2024 Ct angiography chest w/contrast/noncontrast Jordan Law MD Work Phone: Start: 12-22-2023 Duplex scan extracranial art compl bi study Ramiro Bhandari MD Work Phone: Start: 12-10-2023 Electrophysiology study Geovany Mishra Work Phone: Start: 12-10-2023 Ecg routine ecg w/least 12 lds trcg only w/o i&r Analia Blackman SECURITY ALARM TECHNICIAN-IT SYSTEMS ANALYST Work Phone: Start: 12-10-2023 Basic metabolic panel calcium total Analia Blackman SECURITY ALARM TECHNICIAN-IT SYSTEMS ANALYST Work Phone: Start: 11-30-2023 Ecg routine ecg w/least 12 lds trcg only w/o i&r Geovany Ventura MD Work Phone: Start: 11-25-2023 Arthrocentesis aspir&/inj major jt/bursa w/o us Luis Armando Schwab MD Work Phone: Start: 11-23-2023 Study Interpretation of outside study Luis Armando Schwab MD Work Phone: Start: 10-12-2023 COMPREHENSIVE HEARING TEST VI SHANA Start: 09-07-2023 Lipid 1996 panel - Serum or Plasma Jayce Duke DO Work Phone: Start: 07-16-2022 Cta abdl aorta&bi iliofem w/contrast&postp Vickey Hicks MD Work Phone: Start: 07-16-2022 Creatinine [Mass/volume] in Serum or Plasma Vickey Hicks MD Work Phone: Start: 06-03-2022 Mammography Oliver Auguste PA- C Work Phone: Start: 09-09-2021 End: 09-09-2021 EKG impression Lobo browne Start: 10-22-2020 TSH WITH REFLEX TO FREE T4 IF ABNORMAL Oliver Omoregie Start: 07-23-2020 Basic metabolic 1998 panel - Serum or Plasma Oliver Omoregie Start: 07-23-2020 Hemoglobin glycosylated a1c Oliver Omor egie Start: 07-23-2020 Lipid panel Oliver Omoregie Start: 05-15-2020 Adrenocorticotropic hormone acth Margari ta Addie Start: 05-15-2020 Cortisol total Anat Addie Start: 05-15-2020 Cortisol, Urinary Free Anat Barreir o Start: 05-15-2020 Creatinine measurement, 24 hour urine Anat Addie Start: 05-15-2020 Dehydroepiandrosterone-sulfate Anat Addie Start: 05-15-2020 Dexamethasone, Serum Anat Addie Start: 05-15-2020 Microalbumin [Mass/time] in 24 hour Urine Anat Addie Start: 05-15-2020 Testosterone [Mass/volume] in Serum or Plasma Anat Addie Start: 05-15-2020 Total Protein, Urine 24Hr Anat Ricks eiro Start: 05-15-2020 Urnls dip stick/tablet rgnt auto w/o microscopy Anat Addie Start: 04-11-2020 Cortisol total Oliver Omoregie Start: 04-10-2020 Adrenocorticotropic hormone acth Oliver Omoregie Start: 04-10-2020 Dehydroepiandrosterone-sulfate Oliver O moregie Start: 04-10-2020 Mri brain brain stem w/o w/contrast material Oliver Omoregie Start: 02-27-2020 Adrenocorticotropic hormone acth Oliver Omoregie Start: 02-27-2020 Cortisol total Oliver Omoregie Start: 02-27-2020 Dehydroepiandrosterone-sulfate Oliver O moregie Start: 02-27-2020 Dexamethasone, Serum Oliver Omoregie Start: 02-27-2020 Hemoglobin glycosylated a1c Oliver Omor egie Start: 02-12-2020 Dar Stout MD Work Phone: Start: 10-23-2019 CT Adrenals with and without Contrast Narciso Funez Start: 10-17-2019 CT Adrenals with and without Contrast Narciso Funez Start: 12-10-2019 Ultrasound Thyroid Narciso Funez Start: 07-13-2019 Lipid 1996 panel - Serum or Plasma Oliver Auguste PA-C Work Phone: Start: 08-28-2018 ORTHOTIC BOOT ELDER EVANS Start: 08-28-2018 Radiologic examination tibia & fibula 2 views ELDER EVANS Start: 08-28-2018 Radex ankle complete minimum 3 views ELDER EVANS Start: 07-20-2018 Ct abdomen & pelvis w/contrast material ELDER EVANS Start: 07-20-2018 Culture bacterial quanttative colony count urine ELDER EVANS Start: 07-19-2018 Assay of lipase ELDER EVANS Start: 07-19-2018 Blood count complete auto&auto difrntl wbc ELDER EVANS Start: 07-19-2018 Comprehensive metabolic panel ELDER Antonino ALEXSANDRA Start: 07-19-2018 LACTIC ACID, PLASMA ELDER EVANS Start: 07-19-2018 Microscopic urinalysis ELDER EVANS Start: 07-19-2018 TROPONIN ELDER EVANS Start: 07-19-2018 Urnls dip stick/tablet rgnt auto w/o microscopy ELDER EVANS Start: 07-19-2018 EKG 12-LEAD ELDER EVANS Start: 05-05-2017 Hysteroscopy D&C with NovaSure ablation Nain Pinto Start: 11-08-2016 Ablation - action (qualifier value) Nain Pinto bilateral carpal tunnel releases Nain Pinto Brain structure (body structure) David Hunter Cholecystectomy Nain Pinto Closed fracture of m andible, angle of jaw (disorder) Nain Pinto Colonoscopy Nain Pinto Esophagogastroduodenoscopy Nena Pinto H/O: surgery History of tympanostomy tube placement Jayce R Roof DO Work Phone: H/O: surgery History of tympanostomy tube placement Jayce R Roof DO Work Phone: History of Gallbladder Surgery Narciso Funez Operations on tonsil and adenoid Nain Pinto Thumb structure (body structure) David Hunter Tonsillectomy and adenoidectomy Narciso Fuenz Plan of Treatment Date Care Activity Detail Author Start: 2035 RSV patients and/or patients aged 60+ years (1 - 1-dose 60+ series) RSV patients and/or patients aged 60+ years (1 - 1-dose 60+ series) [facility] Start: 01-10-2033 DTaP/Tdap/Td Vaccines (2 - Td or Tdap) DTaP/Tdap/Td Vaccines (2 - Td or Tdap) [facility] Start: 01-10-2033 Urine microalbumin profile DTaP,Tdap,Td Vaccine (2 - Td or Tdap) [facility] Start: 02-11-2030 Screening for malignant neoplasm of colon [facility] Start: 10-17-2026 Screening for malignant neoplasm of colon [facility] Start: 05-25-2026 Lipid panel Lipid Panel [facility] Start: 03-27-2026 End: 03-27-2026 Patient encounter procedure 03/27/2026 1:45 PM EDT Office Visit [facility] [address] [phone] Ramiro Bhandari MD [address] [facility] Office [facility], [address] [address] [facility] Start: 11-21-2025 End: 11-21-2025 Patient encounter procedure 11/21/2025 10:20 AM EST Office Visit [facility] [address] [place] [phone] Suad Jones MD [address] [place] [address] [facility] Start: 2025 Shingles (RZV) Vaccine (1 of 2) Shingles (RZV) Vaccine (1 of 2) [facility] Start: 2025 Zoster Vaccines (1 of 2) Zoster Vaccines (1 of 2) [facility] Start: 08-30-2025 End: 08-30-2025 Patient encounter procedure [facility] Start: 08-27-2025 End: 08-27-2025 Patient encounter procedure 08/27/2025 11:45 AM EDT Office Visit [facility] [address] [place] [address] [place] [address] [facility] [address] [place], [place] [phone] [facility] Start: 08-02-2025 End: 08-02-2025 Patient encounter procedure [facility] Start: 07-18-2025 End: 07-18-2025 Patient encounter procedure 07/18/2025 10:00 AM EDT Office Visit [facility] [address] [place] [address] Suad Jones MD [address] [place] [address] 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) [facility] Comment on above: Type 2 diabetes mellitus with neurologic al manifestations (HCC) Start: 07-11-2025 End: 07-11-2025 Patient encounter procedure 07/11/2025 12:45 PM EDT Office Visit [facility] [address] [facility] [address] [place] [address] Gilda Leong MD [address] [facility] [place], [place] [phone] [facility] Start: 07-11-2025 End: 07-11-2025 Patient encounter procedure [facility] Start: 07-09-2025 Influenza vaccination [facility] Start: 06-29-2025 Lipid panel Lipid Panel [facility] Start: 06-29-2025 Urine screening for protein Diabetes: Urine Protein Screening [facility] Start: 06-26-2025 End: 06-26-2025 Patient encounter procedure 06/26/2025 1:40 PM EDT Office Visit [facility] [address] [place] [phone] [place] [address] Department of [place] [address] [facility] Start: 06-04-2025 End: 06-04-2027 Vascular US PVR with exercise Vascular US PVR with exercise Vascular Ultrasound Routine Aortoiliac occlusive disease (Multi) Atherosclerosis of [place] artery of both lower extremities with intermittent claudication Intermittent claudication Expected: 06/04/2025 (Approximate), Expires: 06/04/2027 [facility] Service Area Work Phone: Comment on above: Expected: 06/04/2025 (Approximate), Expi res: 06/04/2027 Start: 06-04-2025 End: 06-04-2025 Patient encounter procedure 06/04/2025 8:15 AM EDT Office Visit [facility] [address] [facility] [address] [place] [address] [place] [address] [facility] [address] [place] [address] [facility] Start: 05-31-2025 End: 05-31-2025 Patient encounter procedure 05/31/2025 3:45 PM EDT Office Visit [facility] [address] [facility] [place] [phone] Charissa Seth, [address] [place] [address] [facility] Start: 05-30-2025 End: 05-30-2026 Cortisol, morning Cortisol, morning Lab Routine 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) Expected: 05/30/2025 (Approximate), Expires: 05/30/2026 [facility] Healthcare Work Phone: Comment on above: Expected: 05/30/2025 (Approximate), Expi res: 05/30/2026 Start: 05-30-2025 End: 05-30-2025 Patient encounter procedure 05/30/2025 10:10 AM EDT Office Visit [facility] [address] [place] [phone] Suad Jones MD [address] [place] [address] 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 5th [place] [address] [place] [address] Department [place] [address] [facility] Start: 05-08-2025 End: 05-08-2025 Patient encounter procedure 05/08/2025 4:30 PM EDT Appointment [address] [phone] [facility] Start: 05-03-2025 End: 05-03-2025 Patient encounter procedure [facility] Start: 04-23-2025 End: 04-23-2025 Patient encounter procedure 04/23/2025 10:30 AM EDT Office Visit [facility] [address] [place] [phone] [place] [address] [facility] [address] [place] [address] [facility] Start: 04-11-2025 End: 04-11-2025 Patient encounter procedure [facility] Start: 04-05-2025 End: 04-04-2026 Point of Care Neuromuscular US Point of Care Neuromuscular US Imaging Routine Carpal tunnel syndrome, bilateral Expected: 04/05/2025 (Approximate), Expires: 04/04/2026 [facility] Service Area Work Phone: Comment on above: Expected: 04/05/2025 (Approximate), Expi res: 04/04/2026 Start: 04-04-2025 End: 04-04-2025 Patient encounter procedure 04/04/2025 2:45 PM EDT Office Visit [facility] [address] [facility] 5th [place] [address] [place] [address] Department [place] [address] [facility] Start: 03-28-2025 End: 03-28-2026 Creatinine [Mass/volume] in Serum or Plasma Creatinine Lab Routine Right subclavian artery occlusion Aortoiliac occlusive disease (Multi) Expected: 03/28/2025 (Approximate), Expires: 03/28/2026 [facility] Work Phone: Comment on above: Expected: 03/28/2025 (Approximate), Expi res: 03/28/2026 Start: 03-28-2025 End: 03-28-2026 CTA Chest and abdominal vessels W contrast IV CT angio chest abdomen pelvis Imaging Routine Right subclavian artery occlusion Aortoiliac occlusive disease (Multi) Expected: 03/28/2025, Expires: 03/28/2026 [facility] Work Phone: Comment on above: Expected: 03/28/2025, Expires: Start: 03-28-2025 End: 03-28-2026 Urea nitrogen [Mass/volume] in Serum or Plasma Blood Urea Nitrogen Lab Routine Right subclavian artery occlusion Aortoiliac occlusive disease (Multi) Expected: 03/28/2025 (Approximate), Expires: 03/28/2026 [facility] Work Phone: Comment on above: Expected: 03/28/2025 (Approximate), Expi res: 03/28/2026 Start: 03-28-2025 End: 03-28-2027 US.doppler Carotid arteries - bilateral Vascular US Carotid Artery Duplex Bilateral Vascular Ultrasound Routine Occlusion and stenosis of bilateral carotid arteries Expected: 03/28/2025 (Approximate), Expires: 03/28/2027 [facility] Service Area Work Phone: Comment on above: Expected: 03/28/2025 (Approximate), Expi res: 03/28/2027 Start: 03-27-2025 Hemoglobin A1c measurement Diabetes: Hemoglobin A1C [facility] Start: 03-19-2025 End: 03-19-2025 Patient encounter procedure 03/19/2025 9:45 AM EDT Office Visit [facility] [address] [place] [phone] Henry Garcia PA [address] [place] [address] [facility] Start: 03-15-2025 End: 03-15-2026 25-hydroxyvitamin D3 [Mass/volume] in Serum or Plasma Vitamin D 25 hydroxy Total Lab Routine Type 2 diabetes mellitus with neurological manifestations (CMS/HCC) Expected: 03/15/2025 (Approximate), Expires: 03/15/2026 [facility] Healthcare Comment on above: Expected: 03/15/2025 (Approximate), Expi res: 03/15/2026 Start: 03-15-2025 End: 03-15-2026 ACTH ACTH Lab Routine Type 2 diabetes mellitus with neurological manifestations (CMS/HCC) Expected: 03/15/2025 (Approximate), Expires: 03/15/2026 [facility] Healthcare Comment on above: Expected: 03/15/2025 (Approximate), Expi res: 03/15/2026 Start: 03-15-2025 End: 03-15-2026 C-peptide C-peptide Lab Routine Type 2 diabetes mellitus with neurological manifestations (CMS/HCC) Expected: 03/15/2025 (Approximate), Expires: 03/15/2026 [facility] Healthcare Comment on above: Expected: 03/15/2025 (Approximate), Expi res: 03/15/2026 Start: 03-15-2025 End: 03-15-2026 Cortisol Cortisol Lab Routine Type 2 diabetes mellitus with neurological manifestations (CMS/HCC) Expected: 03/15/2025 (Approximate), Expires: 03/15/2026 [facility] Healthcare Comment on above: Expected: 03/15/2025 (Approximate), Expi res: 03/15/2026 Start: 03-15-2025 End: 03-15-2026 Cortisol, morning Cortisol, morning Lab Routine Type 2 diabetes mellitus with neurological manifestations (CMS/HCC) Expected: 03/15/2025 (Approximate), Expires: 03/15/2026 [facility] Healthcare Work Phone: Comment on above: Expected: 03/15/2025 (Approximate), Expi res: 03/15/2026 Start: 03-15-2025 End: 03-15-2026 Follicle stimulating hormone Follicle stimulating hormone Lab Routine Type 2 diabetes mellitus with neurological manifestations (CMS/HCC) Expected: 03/15/2025 (Approximate), Expires: 03/15/2026 [facility] Healthcare Comment on above: Expected: 03/15/2025 (Approximate), Expi res: 03/15/2026 Start: 03-15-2025 End: 03-15-2026 Growth hormone Growth hormone Lab Routine Type 2 diabetes mellitus with neurological manifestations (CMS/HCC) Expected: 03/15/2025 (Approximate), Expires: 03/15/2026 [facility] Healthcare Comment on above: Expected: 03/15/2025 (Approximate), Expi res: 03/15/2026 Start: 03-15-2025 End: 03-15-2026 Insulin-like growth factor 1 Insulin-like growth factor 1 Lab Routine Type 2 diabetes mellitus with neurological manifestations ([facility]/HCC) Expected: 03/15/2025 (Approximate), Expires: 03/15/2026 [facility] Healthcare Comment on above: Expected: 03/15/2025 (Approximate), Expi res: 03/15/2026 Start: 03-15-2025 End: 03-15-2026 Lipid 1996 panel - Serum or Plasma Lipid panel Lab Routine Type 2 diabetes mellitus with neurological manifestations ([facility]/HCC) Expected: 03/15/2025 (Approximate), Expires: 03/15/2026 [facility] Healthcare Comment on above: Expected: 03/15/2025 (Approximate), Expi res: 03/15/2026 Start: 03-15-2025 End: 03-15-2026 Luteinizing hormone Luteinizing hormone Lab Routine Type 2 diabetes mellitus with neurological manifestations ([facility]/HCC) Expected: 03/15/2025 (Approximate), Expires: 03/15/2026 [facility] Healthcare Comment on above: Expected: 03/15/2025 (Approximate), Expi res: 03/15/2026 Start: 03-15-2025 End: 03-15-2026 Microalbumin/Creatinine panel in random Urine Microalbumin / creatinine urine ratio Lab Routine Type 2 diabetes mellitus with neurological manifestations ([facility]/HCC) Expected: 03/15/2025 (Approximate), Expires: 03/15/2026 [facility] Healthcare Comment on above: Expected: 03/15/2025 (Approximate), Expi res: 03/15/2026 Start: 03-15-2025 End: 03-15-2026 Prolactin Prolactin Lab Routine Type 2 diabetes mellitus with neurological manifestations ([facility]/HCC) Expected: 03/15/2025 (Approximate), Expires: 03/15/2026 [facility] Healthcare Comment on above: Expected: 03/15/2025 (Approximate), Expi res: 03/15/2026 Start: 03-15-2025 End: 03-15-2026 Renal function panel Renal function panel Lab Routine Type 2 diabetes mellitus with neurological manifestations (CMS/HCC) Expected: 03/15/2025 (Approximate), Expires: 03/15/2026 [facility] Comment on above: Expected: 03/15/2025 (Approximate), Expi res: 03/15/2026 Start: 03-15-2025 End: 03-15-2026 Thyrotropin [Units/volume] in Serum or Plasma TSH Lab Routine Type 2 diabetes mellitus with neurological manifestations (CMS/HCC) Expected: 03/15/2025 (Approximate), Expires: 03/15/2026 [facility] Healthcare Comment on above: Expected: 03/15/2025 (Approximate), Expi res: 03/15/2026 Start: 03-15-2025 End: 03-15-2026 Thyroxine (T4) free [Mass/volume] in Serum or Plasma T4, free Lab Routine Type 2 diabetes mellitus with neurological manifestations ([facility]/HCC) Expected: 03/15/2025 (Approximate), Expires: 03/15/2026 [facility] Comment on above: Expected: 03/15/2025 (Approximate), Expi res: 03/15/2026 Start: 03-15-2025 End: 03-15-2025 Patient encounter procedure 03/15/2025 10:50 AM EDT Office Visit [facility] [address] [place] [address] Suad Jones MD [address] [place] [address] Arrived [facility] Comment on above: Arrived Start: 03-14-2025 End: 03-14-2025 Patient encounter procedure 03/14/2025 9:45 AM EDT Office Visit [facility] [address] [place] [address] Ramiro Bhandari MD [address] [facility] [address], [address] [place] [address] [facility] Start: 02-28-2025 End: 08-30-2026 Cardiac device check - In Clinic Cardiac device check - In Clinic Implantable Cardiac Device Routine Sinus node dysfunction (Multi) Cardiac pacemaker in situ Expected: 02/28/2025 (Approximate), Expires: 08/30/2026 [facility] Service Area Work Phone: Comment on above: Expected: 02/28/2025 (Approximate), Expi res: 08/30/2026 Start: 02-28-2025 End: 02-28-2026 Cardiac device check - Remote Cardiac device check - Remote Implantable Cardiac Device Routine Sinus node dysfunction (Multi) Cardiac pacemaker in situ Expected: 02/28/2025 (Approximate), Expires: 02/28/2026 [facility] Work Phone: Comment on above: Expected: 02/28/2025 (Approximate), Expi res: 02/28/2026 Start: 02-28-2025 End: 02-28-2025 Patient encounter procedure [facility] Start: 02-14-2025 End: 02-14-2027 NM Heart Perfusion W stress and W radionuclide IV Nuclear Stress Test Cardiac Nuclear Medicine Routine Coronary artery disease involving [place] coronary artery of [place] heart, unspecified whether angina present Chest pain, unspecified type Expected: 02/14/2025 (Approximate), Expires: 02/14/2027 [facility] Service Area Work Phone: Comment on above: Expected: 02/14/2025 (Approximate), Expi res: 02/14/2027 Start: 02-14-2025 End: 02-14-2025 Patient encounter procedure 02/14/2025 10:00 AM EDT Office Visit [facility] [address] [phone] Ramiro Bhandari MD [address] [facility] Medical Office Bldg, [address] [place] [address] [facility] Start: 02-07-2025 End: 08-09-2025 Cardiac Device Check - In Clinic Cardiac Device Check - In Clinic Implantable Cardiac Device Routine Cardiac pacemaker in situ Expected: 02/07/2025 (Approximate), Expires: 08/09/2025 [facility] Service Area Work Phone: Comment on above: Expected: 02/07/2025 (Approximate), Expi res: 08/09/2025 Start: 01-12-2025 BP Controlled (<130/80) BP Controlled (<130/80) [facility] Start: 12-28-2024 End: 12-28-2025 Corticotropin [Mass/volume] in Plasma Adrenocorticotropic Hormone (ACTH) Lab Routine Class 2 severe obesity with serious comorbidity and body mass index (BMI) of 35.0 to 35.9 in adult, unspecified obesity type Expected: 12/28/2024 (Approximate), Expires: 12/28/2025 [facility] Area Work Phone: Comment on above: Expected: 12/28/2024 (Approximate), Expi res: 12/28/2025 Start: 12-28-2024 End: 12-28-2025 Cortisol [Mass or Moles/volume] in Serum or Plasma --AM peak specimen Cortisol AM Lab Routine Class 2 severe obesity with serious comorbidity and body mass index (BMI) of 35.0 to 35.9 in adult, unspecified obesity type Expected: 12/28/2024 (Approximate), Expires: 12/28/2025 [facility] Work Phone: Comment on above: Expected: 12/28/2024 (Approximate), Expi res: 12/28/2025 Start: 12-28-2024 End: 12-28-2025 Dehydroepiandrosterone sulfate (DHEA-S) [Mass/volume] in Serum or Plasma DHEA-Sulfate Lab Routine Class 2 severe obesity with serious comorbidity and body mass index (BMI) of 35.0 to 35.9 in adult, unspecified obesity type Expected: 12/28/2024 (Approximate), Expires: 12/28/2025 [facility] Work Phone: Comment on above: Expected: 12/28/2024 (Approximate), Expi res: 12/28/2025 Start: 12-28-2024 End: 12-28-2025 Dexamethasone [Mass/volume] in Serum or Plasma Dexamethasone Lab Routine Class 2 severe obesity with serious comorbidity and body mass index (BMI) of 35.0 to 35.9 in adult, unspecified obesity type Expected: 12/28/2024 (Approximate), Expires: 12/28/2025 [facility] Work Phone: Comment on above: Expected: 12/28/2024 (Approximate), Expi res: 12/28/2025 Start: 12-28-2024 End: 12-28-2024 Patient encounter procedure [facility] Start: 12-27-2024 End: 12-27-2024 Patient encounter procedure 12/27/2024 2:15 PM EST Office Visit [facility] [address] [facility] [address] [place] [phone] Gilda Leong MD [address] [facility], [facility] [address] [place], [place] [phone] [facility] Start: 10-23-2024 End: 10-23-2024 Patient encounter procedure 10/23/2024 12:45 PM EST Office Visit [facility] [address] [place] [phone] [place] [address] [facility] Department [place] [address] [facility] Start: 10-09-2024 End: 10-09-2024 Patient encounter procedure 10/09/2024 1:30 PM EST Office Visit [address] [place] [phone] [place] [address] [facility] Start: 09-29-2024 Hemoglobin A1c measurement Diabetes: Hemoglobin A1C [facility] Start: 09-07-2024 Diabetic foot examination Diabetes: Foot Exam [facility] Start: 09-07-2024 Hepatitis B screening Urine Albumin:Creatinine Ratio [facility] Start: 09-07-2024 Hepatitis B surface antibody level LDL Cholesterol [facility] Start: 09-07-2024 Lipid panel Lipid Panel [facility] Start: 09-07-2024 Urine screening for protein Diabetes: Urine Protein Screening [facility] Start: 09-06-2024 End: 09-06-2025 Electroencephalogram EEG Neurology Routine Partial symptomatic epilepsy with complex partial seizures, intractable, without status epilepticus (Multi) Expected: 09/06/2024 (Approximate), Expires: 09/06/2025 [facility] Work Phone: Comment on above: Expected: 09/06/2024 (Approximate), Expi res: 09/06/2025 Start: 09-06-2024 End: 09-06-2024 Patient encounter procedure 09/06/2024 1:15 PM EDT Office Visit [facility] [address] [phone] Gilda Leong MD [address] [facility], [address] [address] [facility] Start: 09-02-2024 Glaucoma screening Diabetes: Retinopathy Screening [facility] Start: 08-09-2024 End: 05-02-2025 Cardiac Device Check - In Clinic Cardiac Device Check - In Clinic Implantable Cardiac Device Routine Pacemaker Expected: 08/09/2024 (Approximate), Expires: 05/02/2025 [facility] Work Phone: Comment on above: Expected: 08/09/2024 (Approximate), Expi res: 05/02/2025 Start: 08-09-2024 End: 05-02-2025 XR Chest 2 Views [facility] Work Phone: Comment on above: Once for 1 Occurrences starting 08/09/20 until 08/09/2024 Expected: 08/09/2024 , Expires: 05/02/2025 Start: 08-09-2024 End: 08-09-2024 Patient encounter procedure [facility] Start: 07-09-2024 COVID-19 Vaccine () COVID-19 Vaccine () [facility] Start: 07-09-2024 COVID-19 Vaccine () COVID-19 Vaccine () [facility] Start: 07-09-2024 COVID-19 Vaccine () COVID-19 Vaccine () [facility] Start: 07-09-2024 Influenza vaccination [facility] Start: 06-29-2024 End: 06-29-2025 Testosterone,Free and Total [facility] Service Area Work Phone: Comment on above: Expected: 06/29/2024 (Approximate), Expi res: 06/29/2025 Start: 06-29-2024 End: 06-29-2024 Patient encounter procedure 06/29/2024 1:00 PM EDT Office Visit [facility] [address] [facility] [address] [place] [address] [place] [address] [address] Department of Medicine-[place] [address] [facility] Start: 06-19-2024 End: 06-19-2024 Patient encounter procedure 06/19/2024 9:40 AM EDT Office Visit [facility] [address] [facility] [address] [place] [address] [place] [address] [address] Department of Medicine-[place] [address] [facility] Start: 05-25-2024 End: 05-25-2024 Patient encounter procedure 05/25/2024 11:00 AM EDT Appointment [address] [phone] [facility] Start: 05-09-2024 End: 05-09-2024 Patient encounter procedure [facility] Start: 05-04-2024 End: 05-04-2024 Patient encounter procedure 05/04/2024 1:15 PM EDT Office Visit [address] [place] [phone] Jayce Duke, [address] [place] [address] [place] [address] [facility] Start: 05-03-2024 End: 05-02-2025 CBC panel - Blood by Automated count [facility] Work Phone: Comment on above: Morning draw (Lab) for 1 Occurrences sta rting 05/03/2024 until 05/03/2024 Expected: 05/03/2024 (Approximate), Expires: 05/02/2025 Start: 05-02-2024 End: 05-02-2024 Admission to same day surgery center 05/02/2024 1:30 PM EDT - 05/02/2024 3:00 PM EDT Surgery [address] [phone] Geovany Ventura MD [address] [place] [address] Loop Recorder Explant [[id number] (CPT )] [facility] Comment on above: Loop Recorder Explant [[id number] (CPT )] Start: 05-02-2024 Subsequent hospital visit by physician 05/02/2024 1:30 PM EDT Hospital Encounter [address] [address] Geovany Ventura MD [address] [place] [address] Sinus node dysfunction (Multi); Sick sinus syndrome (Multi); Bradycardia; Dizziness [facility] Comment on above: Sinus node dysfunction (Multi); Sick sinus syndrome (Multi); Bradycardia; Dizziness Start: 04-19-2024 End: 04-19-2026 US Heart Transthoracic Transthoracic Echo Complete Echocardiography Routine Wide-complex tachycardia Sinus node dysfunction (Multi) Sick sinus syndrome (Multi) Bradycardia Dizziness Expected: 04/19/2024 (Approximate), Expires: 04/19/2026 [facility] Work Phone: Comment on above: Expected: 04/19/2024 (Approximate), Expi res: 04/19/2026 Start: 04-19-2024 End: 04-19-2024 Patient encounter procedure [facility] Start: 04-16-2024 Yearly Adult Physical Yearly Adult Physical [facility] Start: 04-10-2024 End: 02-08-2025 Lipid 1996 panel - Serum or Plasma Lipid panel Lab Routine Hypercholesterolemia Expected: 04/10/2024 (Approximate), Expires: 02/08/2025 [facility] Service Area Work Phone: Comment on above: Expected: 04/10/2024 (Approximate), Expi res: 02/08/2025 Start: 04-06-2024 End: 12-10-2024 Cardiac Device Check - In Clinic Cardiac Device Check - In Clinic Implantable Cardiac Device Routine Irregular menses Expected: 04/06/2024 (Approximate), Expires: 12/10/2024 [facility] Service Area Work Phone: Comment on above: Expected: 04/06/2024 (Approximate), Expi res: 12/10/2024 Start: 03-15-2024 FUVGENERAL, Provider: Gilda Leong, Status: Pen, Time: 1:15 PM FUVGENERAL, Provider: Gilda Leong, Status: Pen, Time: 1:15 PM [facility]- [facility] Work Phone: Start: 03-15-2024 End: 03-15-2024 Patient encounter procedure 03/15/2024 1:15 PM EDT Office Visit [facility] [address] [place] [address] [place] [phone] Gilda Leong MD [address] [facility], [address] [place] [address] [facility] Start: 02-09-2024 End: 02-09-2024 Patient encounter procedure 02/09/2024 9:15 AM EDT Office Visit [facility] [address] [facility] [address] [place] [phone] Ramiro Bhandari MD [address] [facility] Office Bldg, [address] [place] [address] [facility] Start: 02-08-2024 FUV, Provider: Oliver Auguste, Status: Pen, Time: 1:30 PM FUV, Provider: Oliver Auguste, Status: Pen, Time: 1:30 PM IW-Ebddmqnayh-Ynp [place] [address] Work Phone: Start: 02-08-2024 End: 02-08-2024 Patient encounter procedure [facility] Start: 12-22-2023 End: 12-22-2023 Patient encounter procedure 12/22/2023 12:30 PM EST Appointment [facility] [address] [place] [address] [facility] Start: 12-17-2023 End: 12-17-2023 Clinical Support 12/17/2023 8:00 AM EST Clinical Support [facility] [address] [facility] [address] [place] [phone] [facility] Start: 12-15-2023 End: 12-15-2024 CTA Heart and Coronary arteries WO and W contrast IV CT angio coronary art with heartflow if score >30% Imaging Routine Chest pain, unspecified type Shortness of breath HTN (hypertension), benign Hyperlipidemia LDL goal <100 Palpitations Expected: 12/15/2023, Expires: 12/15/2024 [facility] Service Area Work Phone: Comment on above: Expected: 12/15/2023, Expires: Start: 12-15-2023 End: 12-15-2023 Patient encounter procedure 12/15/2023 2:00 PM EST Office Visit [facility] [address] [phone] Ramiro Bhandari MD 125 [address] [facility], [address] [address] [facility] Start: 12-15-2023 End: 12-15-2025 US.doppler Carotid arteries - bilateral Vascular US carotid artery duplex bilateral Vascular Ultrasound Routine HTN (hypertension), benign Hypercholesterolemia Hyperlipidemia LDL goal <100 Bruit of right carotid artery Expected: 12/15/2023 (Approximate), Expires: 12/15/2025 [facility] Work Phone: Comment on above: Expected: 12/15/2023 (Approximate), Expi res: 12/15/2025 Start: 12-08-2023 Hemoglobin A1c measurement [facility] Start: 12-07-2023 End: 12-07-2023 Admission to same day surgery center 12/07/2023 10:00 AM EST - 12/07/2023 10:30 AM EST Surgery [facility] [address] [place] [address] Geovany Ventura MD [address] [address] Loop Insertion [[id number] (CPT )] [facility] Comment on above: Loop Insertion [[id number] (CPT )] Start: 12-07-2023 Subsequent hospital visit by physician 12/07/2023 10:00 AM EST Hospital Encounter [facility] [address] [place] [address] Geovany Ventura MD [address] [address] Syncope and collapse; Wide-complex tachycardia; Palpitations; Night sweats [facility] Comment on above: Syncope and collapse; Wide-complex tachycardia; Palpitations; Night sweats Start: 11-25-2023 End: 11-25-2023 Patient encounter procedure 11/25/2023 11:00 AM EST Office Visit [facility] [address] [place] [address] [place] [address] [address] Department [place] [address] [facility] Start: 11-24-2023 End: 11-24-2023 Patient encounter procedure 11/24/2023 12:30 PM EST Office Visit [facility] [address] [facility] [address] [place] [address] Geovany Ventura MD [address] [facility] Office [facility], [address] [place], [place] [phone] [facility] Start: 11-09-2023 End: 11-09-2023 Patient encounter procedure 11/09/2023 1:00 PM EST Office Visit [address] [place] [address] Jayce Duke [address] [place] [address] [facility] Start: 09-26-2023 Screening for malignant neoplasm of colon [facility] Start: 09-21-2023 End: 09-21-2023 Admission to same day surgery center 09/21/2023 9:00 AM EST - 09/21/2023 10:00 AM EST Surgery [facility] [address] [place] [address] Geovany Ventura MD [address] [facility] Office Bldg, [address] [place] [address] Loop Recorder Explant [[id number] (CPT )] [facility] Comment on above: Loop Recorder Explant [[id number] (CPT )] Start: 09-21-2023 Subsequent hospital visit by physician 09/21/2023 9:00 AM EST Hospital Encounter [facility] [address] [place] [phone] Geovany Ventura MD 125 [address] [facility] Medical Office Bldg, [address] [place], [place] [phone] Syncope and collapse [facility] Comment on above: Syncope and collapse Start: 09-07-2023 End: 09-07-2024 Comprehensive metabolic 2000 panel - Serum or Plasma [facility] Work Phone: Comment on above: Expected: 09/07/2023 (Approximate), Expi res: 09/07/2024 Start: 09-07-2023 End: 09-07-2024 Lipid 1996 panel - Serum or Plasma [facility] Service Area Work Phone: Comment on above: Expected: 09/07/2023 (Approximate), Expi res: 09/07/2024 Start: 09-07-2023 End: 09-07-2024 Microalbumin/Creatinine [Mass Ratio] in Urine [facility] Work Phone: Comment on above: Expected: 09/07/2023 (Approximate), Expi res: 09/07/2024 Start: 09-07-2023 End: 09-07-2024 Thyrotropin [Units/volume] in Serum or Plasma [facility] Work Phone: Comment on above: Expected: 09/07/2023 (Approximate), Expi res: 09/07/2024 Start: 09-07-2023 End: 09-07-2024 Thyroxine (T4) free [Mass/volume] in Serum or Plasma [facility] Work Phone: Comment on above: Expected: 09/07/2023 (Approximate), Expi res: 09/07/2024 Start: 09-07-2023 End: 09-07-2024 Triiodothyronine (T3) [Mass/volume] in Serum or Plasma [facility] Work Phone: Comment on above: Expected: 09/07/2023 (Approximate), Expi res: 09/07/2024 Start: 09-07-2023 FUV, Provider: Oliver Auguste, Status: Pen, Time: 10:00 AM FUV, Provider: Oliver Auguste, Status: Pen, Time: 10:00 AM [facility]inology- [facility] Work Phone: Start: 09-02-2023 Glaucoma screening Diabetes: Retinopathy Screening [facility] Start: 07-09-2023 Covid-19 Vaccine () Covid-19 Vaccine () [facility] Start: 07-09-2023 Influenza vaccination Influenza Vaccine (#1) [facility] Start: 06-03-2023 Screening for malignant neoplasm of breast [facility] Start: 05-11-2023 Hemoglobin A1c measurement Diabetes: Hemoglobin A1C [facility] Start: 05-06-2023 [facility], Provider: Geovany Ventura, Status: Pen, Time: 10:00 AM [facility], Provider: Geovany Ventura, Status: Pen, Time: 10:00 AM [facility] [address] DO Work Phone: Start: 05-06-2023 LOOP IMPLA, Provider: [facility] 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 4,[id number], Status: Pen, Time: 7:30 AM LOOP IMPLA, Provider: [facility] 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 4,[id number], Status: Pen, Time: 7:30 AM [facility] 305 DO Work Phone: Start: 04-27-2023 NPVRFRL, Provider: Geovany Ventura, Status: Pen, Time: 9:15 AM NPVRFRL, Provider: Geovany Ventura, Status: Pen, Time: 9:15 AM [facility] Work Phone: Start: 03-09-2023 FUVGENERAL, Provider: Gilda Leong, Status: Pen, Time: 1:15 PM FUVGENERAL, Provider: Gilda Leong, Status: Pen, Time: 1:15 PM FP-Qgrmfccus-Fhin field [address] Work Phone: Start: 02-09-2023 FUV, Provider: Oliver Auguste, Status: Pen, Time: 1:30 PM FUV, Provider: Oliver Auguste, Status: Pen, Time: 1:30 PM [facility]ocrinology- [facility] Work Phone: Start: 09-29-2022 FUV, Provider: Oliver Auguste, Status: Pen, Time: 3:20 PM FUV, Provider: Oliver Auguste, Status: Pen, Time: 3:20 PM [facility]inology- [facility] Work Phone: Start: 09-29-2022 VIRFUVHOME, Provider: Oliver Auguste, Status: Pen, Time: 3:20 PM VIRFUVHOME, Provider: Oliver Auguste, Status: Pen, Time: 3:20 PM [facility] Work Phone: Start: 09-22-2022 VIRFUVHOME, Provider: Oliver Auguste, Status: Pen, Time: 11:45 AM VIRFUVHOME, Provider: Oliver Auguste, Status: Pen, Time: 11:45 AM LE-Vfncjhmid-Vkpu field [address] Work Phone: Start: 09-17-2022 FUVGENERAL, Provider: Gilda Leong, Status: Pen, Time: 1:00 PM FUVGENERAL, Provider: Gilda Leong, Status: Pen, Time: 1:00 PM QJ-Enbxigxlu-Kpom field [address] Work Phone: Start: 08-08-2022 Influenza vaccination Influenza Vaccine (#1) [facility] Start: 07-09-2022 Influenza vaccination INFLUENZA (#1) [facility] Start: 05-12-2022 FUV, Provider: Oliver Auguste, Status: Pen, Time: 1:00 PM FUV, Provider: Oliver Auguste, Status: Pen, Time: 1:00 PM PA-Yculymthfoxt-V [place] Work Phone: Start: 03-19-2022 FUVGENERAL, Provider: Gilda Leong, Status: Pen, Time: 2:00 PM FUVGENERAL, Provider: Gilda Leong, Status: Pen, Time: 2:00 PM UI-Dooaypotswag-Q [facility] Work Phone: Start: 01-07-2022 POV, Provider: Bryce Bajwa, Status: Pen, Time: 12:15 PM POV, Provider: Bryce Bajwa, Status: Pen, Time: 12:15 PM [facility]Endocrinology- [facility] Work Phone: Start: 12-18-2021 FUVGENERAL, Provider: Gilda Leong, Status: Pen, Time: 2:15 PM FUVGENERAL, Provider: Gilda Leong, Status: Pen, Time: 2:15 PM EA-Nlaoklxzi-Qjeb field 201 Work Phone: Start: 12-17-2021 Admission to same day surgery center RNVISIT, Provider: NURSE VISIT RADHA 5TH,MGNEUROSURGERY, Status: Pen, Time: 11:00 AM [facility]inology- [facility] Work Phone: Start: 12-16-2021 FUV, Provider: Oliver Auguste, Status: Pen, Time: 4:40 PM FUV, Provider: Oliver Auguste, Status: Pen, Time: 4:40 PM [facility]- [facility] Work Phone: Start: 12-04-2021 [facility]: Bryce Bajwa, Status: Pen, Time: 7:00 AM SURGC, Provider: Bryce Bajwa, Status: Pen, Time: 7:00 AM [facility]in[facility] Work Phone: Start: 10-14-2021 FUV, Provider: Oliver Auguste, Status: Pen, Time: 3:40 PM FUV, Provider: Oliver Auguste, Status: Pen, Time: 3:40 PM JW-Oappmqqzd-Fgxo field [address] Work Phone: Start: 10-14-2021 FUV, Provider: Oliver Auguste, Status: Pen, Time: 3:20 PM FUV, Provider: Oliver Auguste, Status: Pen, Time: 3:20 PM [facility]- [facility] Work Phone: Start: 10-14-2021 Patient encounter procedure [facility] Start: 10-13-2021 NPV, Provider: Bryce Bajwa, Status: Pen, Time: 1:00 PM NPV, Provider: Bryce Bajwa, Status: Pen, Time: 1:00 PM KO-Kmwogofhx-Wtsu field 201 Work Phone: Start: 09-18-2021 Patient encounter procedure [facility] Start: 09-18-2021 FUVGENERAL, Provider: Gilda Leong, Status: Pen, Time: 1:15 PM FUVGENERAL, Provider: Gilda Leong, Status: Pen, Time: 1:15 PM BR-Tinuuuuhp-Hfsf field 201 Work Phone: Start: 09-18-2021 Patient encounter procedure [facility] Neurolog [facility] Start: 09-09-2021 Cardiomyopathy Cardiomyopathy Date: 09-Sep-2021 [facility] Start: 08-13-2021 COVID-19 VACCINE (3 - Booster for Pfizer series) COVID-19 VACCINE (3 - Booster for Pfizer series) [facility] Start: 07-31-2021 FUVGENERAL, Provider: Gilda Leong, Status: Pen, Time: 1:00 PM FUVGENERAL, Provider: Gilda Leong, Status: Pen, Time: 1:00 PM AJ-Weyakolyu-Gzxg field 201 Work Phone: Start: 07-22-2021 EEG, Provider: NEURODIAG EEG ELYRIA,[id number], Status: Pen, Time: 10:00 AM EEG, Provider: NEURODIAG EEG ELYRIA,[id number], Status: Pen, Time: 10:00 AM VS-Xzsslpdms-Kggz field 201 Work Phone: Start: 05-29-2021 NPVGENERAL, Provider: Gilda Leong, Status: Pen, Time: 10:00 AM NPVGENERAL, Provider: Gilda Leong, Status: Pen, Time: 10:00 AM [facility]in[facility]- [facility] Work Phone: Start: 05-08-2021 COVID-19 Vaccine (3 - Booster for Pfizer series) COVID-19 Vaccine (3 - Booster for Pfizer series) [facility] Start: 05-08-2021 COVID-19 Vaccine (3 - Pfizer series) COVID-19 Vaccine (3 - Pfizer series) [facility] Start: 02-11-2021 Colonoscopy COLONOSCOPY [facility] Start: 02-11-2021 COLORECTAL CANCER SCREENING COLORECTAL CANCER SCREENING [facility] Start: 02-11-2021 Screening for malignant neoplasm of colon [facility] Start: 10-22-2020 Hemoglobin A1c/Hemoglobin.total in Blood HBA1C [facility] Start: 2020 Cholesterol [Mass/volume] in Serum or Plasma Cholesterol [facility] Start: 2020 COLOGUARD (FIT-DNA) COLOGUARD (FIT-DNA) [facility] Start: [address] COLONOGRAPHY [facility] Start: 2020 FECAL OCCULT BLOOD FECAL OCCULT BLOOD [facility] Start: 2020 Screening for malignant neoplasm of colon [facility] Start: 2020 SIGMOIDOSCOPY SIGMOIDOSCOPY [facility] Start: 07-13-2020 Lipid panel Lipid Panel [facility] Start: 05-28-2020 HbA1c (Bld) [Mass fraction] [facility] Start: 05-18-2020 Adrenocorticotropic hormone acth Adrenocorticotropic Hormone, Plasma [facility] Work Phone: Start: 05-18-2020 Albumin DL <= 20 mg/L (24H U) [Mass/Time] Albumin, Urine 24Hr [facility]ocrinology- [facility] Work Phone: Start: 05-18-2020 Cortisol total Cortisol A.M. [facility]inology- [facility] Work Phone: Start: 05-18-2020 Creatinine measurement, 24 hour urine Creatinine, Urine 24 Hour -[facility] [employer] 1600 Work Phone: Start: 05-18-2020 Dehydroepiandrosterone-sulf ate DHEA Sulfate, Serum [facility] [employer] 1600 Work Phone: Start: 05-18-2020 Urnls dip stick/tablet rgnt auto w/o microscopy Urinalysis -[facility] [employer] [address] Work Phone: Start: 05-18-2020 -[facility] [employer] [facility] Work Phone: Start: 12-01-2019 3 comp foot exam completed DIABETIC FOOT EXAM [facility] Start: 12-01-2019 Diabetic foot examination [facility]abetic Foot Exam [facility] Start: 11-17-2019 PNEUMOCOCCAL (2 - PCV) PNEUMOCOCCAL (2 - PCV) [facility] Start: 11-17-2019 [facility] Start: 11-17-2019 Pneumococcal Vaccine: Pediatrics (0 to 5 Years) and At-Risk Patients (6 to 64 Years) (2 - PCV) Pneumococcal Vaccine: Pediatrics (0 to 5 Years) and At-Risk Patients (6 to 64 Years) (2 - PCV) [facility] Start: 11-17-2019 Pneumococcal Vaccine: Pediatrics (0 to 5 Years) and At-Risk Patients (6 to 64 Years) (2 of 2 - PCV) Pneumococcal Vaccine: Pediatrics (0 to 5 Years) and At-Risk Patients (6 to 64 Years) (2 of 2 - PCV) [facility] Start: 11-17-2019 Pneumococcal Vaccine: Pediatrics and At-Risk Adult Patients (2 of 2 - PCV) Pneumococcal Vaccine: Pediatrics and At-Risk Adult Patients (2 of 2 - PCV) [facility] Start: 11-03-2019 [facility] Work Phone: Start: 2015 Mammography [facility] Start: 2005 HPV TESTING HPV TESTING [facility] Start: 2005 Screening for malignant neoplasm of cervix [facility] Start: 2005 Zoledronic acid therapy ALPHA-1 ANTITRYPSIN DEFICIENCY SCREENING [facility] Start: 1996 PAP TESTING PAP TESTING [facility] Start: 1996 Screening for malignant neoplasm of cervix [facility] Start: 1994 Hepatitis A Vaccines (1 of 2 - Risk 2-dose series) Hepatitis A Vaccines (1 of 2 - Risk 2-dose series) [facility] Start: 1994 HEPATITIS B (1 of 3 - Risk 3-dose series) HEPATITIS B (1 of 3 - Risk 3-dose series) [facility] Start: 1994 Hepatitis B Vaccine (1 of 3 - 19+ 3-dose series) Hepatitis B Vaccine (1 of 3 - 19+ 3-dose series) [facility] Start: 1994 Hepatitis B Vaccines (1 of 3 - 19+ 3-dose series) Hepatitis B Vaccines (1 of 3 - 19+ 3-dose series) [facility] Start: 1994 Urine microalbumin profile DTAP,TDAP,TD (1 - Tdap) [facility] Start: 1994 Urine screening for protein Diabetes: Urine Protein Screening [facility] Start: 1993 ANNUAL PCP TEAM CHRONIC DISEASE VISIT ANNUAL PCP TEAM CHRONIC DISEASE VISIT [facility] Start: 1993 Anxiety Screening Anxiety Screening [facility] Start: 1993 BP CONTROLLED (<130/80) BP CONTROLLED (<130/80) [facility] Start: 1993 Hepatitis B surface antibody level LDL CHOLESTEROL [facility] Start: 1993 HEPATITIS C SCREENING HEPATITIS C SCREENING [facility] Start: 1993 Hepatitis C screening [facility] Start: 1993 HIV SCREENING HIV SCREENING [facility] Start: 1993 HIV screening HIV Screening [facility] Start: 1993 SPIROMETRY SPIROMETRY [facility] Start: 1993 Tetanus + diphtheria + acellular pertussis vaccine (product) Tdap Booster [facility] Start: 1990 HIV screening HIV Test [facility] Start: 1985 Glaucoma screening [facility] Start: 1985 Hepatitis B screening URINE ALBUMIN:CREATININE RATIO [facility] Start: 1985 Hepatitis C antibody, confirmatory test DILATED RETINAL EXAM [facility] Start: 1980 COVID-19 Vaccine (#1) COVID-19 Vaccine (#1) [facility] Start: 1976 MMR Vaccines (1 of 1 - Standard series) MMR Vaccines (1 of 1 - Standard series) [facility] Start: 03-15-1976 COVID-19 VACCINE (#1) COVID-19 VACCINE (#1) [facility] Start: 1975 HEPATITIS B (1 of 3 - 3-dose series) HEPATITIS B (1 of 3 - 3-dose series) [facility] Start: 1975 Hepatitis B Vaccine (1 of 3 - 3-dose series) Hepatitis B Vaccine (1 of 3 - 3-dose series) [facility] Start: 1975 Hepatitis B Vaccines (1 of 3 - 3-dose series) Hepatitis B Vaccines (1 of 3 - 3-dose series) [facility] Start: 1975 HIV screening HIV Screening [facility] Start: 1975 Screening for malignant neoplasm of colon [facility] Start: 1975 Skin Cancer Screening Skin Cancer Screening [facility] Start: 1975 Yearly Adult Physical Yearly Adult Physical [facility] End: 04-19-2025 Basic metabolic 2000 panel - Serum or Plasma Basic Metabolic Panel Lab Routine Sinus node dysfunction (Multi) Sick sinus syndrome (Multi) Bradycardia Dizziness 1 Occurrences starting 04/19/2024 until 04/19/2025 [facility] Work Phone: Comment on above: 1 Occurrences starting 04/19/2024 until 04/19/2025 End: 05-03-2024 Cardiac Device Check - Inpatient Cardiac Device Check - Inpatient Implantable Cardiac Device Routine Pacemaker Once for 1 Occurrences starting 05/03/2024 until 05/03/2024 [facility] Work Phone: Comment on above: Once for 1 Occurrences starting 05/03/20 24 until 05/03/2024 End: 02-07-2025 Cardiac Device Check - Remote Cardiac Device Check - Remote Implantable Cardiac Device Routine Cardiac pacemaker in situ 52 Occurrences starting 08/09/2024 until 02/07/2025 [facility] Work Phone: Comment on above: 52 Occurrences starting 08/09/2024 until 02/07/2025 End: 11-14-2024 Cardiac Device Check - Remote [facility] Work Phone: Comment on above: Once for 1 Occurrences starting 11/14/19 until 11/14/2024 End: 04-19-2025 CBC panel - Blood by Automated count CBC Lab Routine Sinus node dysfunction (Multi) Sick sinus syndrome (Multi) Bradycardia Dizziness 1 Occurrences starting 04/19/2024 until 04/19/2025 [facility] Work Phone: Comment on above: 1 Occurrences starting 04/19/2024 until 04/19/2025 End: 12-10-2023 Choriogonadotropin ( test) [Presence] in Urine POCT , urine Point of Care Testing STAT Syncope and collapse Wide-complex tachycardia Palpitations Night sweats STAT (Lab) for 1 Occurrences starting 12/10/2023 until 12/10/2023 [facility] Work Phone: Comment on above: STAT (Lab) for 1 Occurrences starting until 12/10/2023 End: 12-15-2024 Creatinine [Mass/volume] in Serum or Plasma Creatinine Lab Routine Chest pain, unspecified type Shortness of breath 1 Occurrences starting 12/15/2023 until 12/15/2024 [facility] Work Phone: Comment on above: 1 Occurrences starting 12/15/2023 until 12/15/2024 End: 07-18-2023 Ct angio abd&plvis cntrst mtrl w/wo cntrst img CTA ABD/PEL WO/W IVCON Radiology Routine Vasculopathy 1 Occurrences starting 06/18/2022 until 07/18/2023 [facility] Work Phone: Comment on above: 1 Occurrences starting 06/18/2022 until 07/18/2023 End: 10-05-2024 Ct angio abd&plvis cntrst mtrl w/wo cntrst img CTA ABD/PEL WO/W IVCON Radiology Routine Vasculopathy 1 Occurrences starting 09/06/2023 until 10/05/2024 [facility] Work Phone: Comment on above: 1 Occurrences starting 09/06/2023 until 10/05/2024 End: 07-18-2023 Ct angiography chest w/contrast/noncontrast CTA CHEST (NONGATED) WO/W IVCON Radiology Routine Vasculopathy 1 Occurrences starting 06/18/2022 until 07/18/2023 [facility] Work Phone: Comment on above: 1 Occurrences starting 06/18/2022 until 07/18/2023 End: 10-05-2024 Ct angiography chest w/contrast/noncontrast CTA CHEST (NONGATED) WO/W IVCON Radiology Routine Vasculopathy 1 Occurrences starting 09/06/2023 until 10/05/2024 [facility] Work Phone: Comment on above: 1 Occurrences starting 09/06/2023 until 10/05/2024 End: 03-18-2026 CTA Abdominal vessels and Pelvis vessels WO and W contrast IV CTA ABD/PEL WO/W IVCON Radiology Routine Occlusion and stenosis of unspecified carotid artery 1 Occurrences starting 02/16/2025 until 03/18/2026 [facility] Comment on above: 1 Occurrences starting 02/16/2025 until 03/18/2026 End: 08-07-2025 CTA Chest and abdominal vessels W contrast IV CT angio chest abdomen pelvis Imaging Routine Aortoiliac occlusive disease (Multi) Right subclavian artery occlusion Once for 1 Occurrences starting 08/07/2025 until 08/07/2025 [facility] Work Phone: Comment on above: Once for 1 Occurrences starting 08/07/20 until 08/07/2025 End: 03-18-2026 CTA Chest vessels WO and W contrast IV CTA CHEST (NONGATED) WO/W IVCON Radiology Routine Occlusion and stenosis of unspecified carotid artery 1 Occurrences starting 02/16/2025 until 03/18/2026 [facility] Comment on above: 1 Occurrences starting 02/16/2025 until 03/18/2026 End: 08-07-2025 CTA Heart and Coronary arteries WO and W contrast IV CT angio coronary art with heartflow if score >30% Imaging Routine Abnormal nuclear stress test Coronary artery disease involving [place] coronary artery of [place] heart, unspecified whether angina present Once for 1 Occurrences starting 08/07/2025 until 08/07/2025 [facility] Work Phone: Comment on above: Once for 1 Occurrences starting 08/07/20 until 08/07/2025 ECG 12 Lead ECG 12 Lead ECG Routine Wide-complex tachycardia 11/30/2023 1:00 PM EST [facility] Work Phone: ECG 12 Lead ECG 12 Lead ECG STAT 12/10/2023 6:25 AM EST [facility] Work Phone: ECG 12 lead STAT ECG 12 lead STA T ECG STAT 05/02/2024 12:30 PM EDT [facility] Work Phone: ECG 12 lead STAT ECG 12 lead STA T ECG STAT 05/02/2024 5:28 PM EDT [facility] Work Phone: End: 10-04-2024 Electroencephalogram [facility] Work Phone: Comment on above: Once for 1 Occurrences starting 10/04/20 24 until 10/04/2024 End: 03-07-2025 Hemoglobin A1c/Hemoglobin.total in Blood Hemoglobin A1C Lab Routine Diabetes mellitus type II, non insulin dependent ([facility]/HCC) 90 days for 8 Occurrences starting 09/07/2023 until 03/07/2025 [facility] Work Phone: Comment on above: 90 days for 8 Occurrences starting 09/07 until 03/07/2025 Hemoglobin A1c/Hemoglobin.total in Blood Hemoglobin A1C Lab Routine Diabetes mellitus type II, non insulin dependent ([facility]/HCC) 09/07/2023 11:02 AM EDT [facility] Work Phone: LOOP INSERTION LOOP INSERTION S yncope and collapse Wide-complex tachycardia Palpitations Night sweats [facility] Work Phone: End: 05-03-2025 MR Brain WO contrast [facility] Work Phone: Comment on above: Once for 1 Occurrences starting 05/03/20 until 05/03/2025 End: 04-19-2025 PT and aPTT panel - Platelet poor plasma by Coagulation assay Coagulation Screen Lab Routine Sinus node dysfunction (Multi) Sick sinus syndrome (Multi) Bradycardia Dizziness 1 Occurrences starting 04/19/2024 until 04/19/2025 [facility] Work Phone: Comment on above: 1 Occurrences starting 04/19/2024 until 04/19/2025 End: 05-19-2023 PVR LEG [facility] PVR LEG [facility] Vascular Lab Routine Aortoiliac occlusive disease (HCC) 1 Occurrences starting 05/19/2022 until 05/19/2023 [facility] Work Phone: Comment on above: 1 Occurrences starting 05/19/2022 until 05/19/2023 End: 09-06-2024 PVR LEG [facility] PVR LEG [facility] Vascular Lab Routine Aortoiliac occlusive disease (HCC) 1 Occurrences starting 09/06/2023 until 09/06/2024 [facility] Work Phone: Comment on above: 1 Occurrences starting 09/06/2023 until 09/06/2024 End: 02-16-2026 US Carotid arteries - bilateral US CAROTID ARTERIES [facility] Vascular Lab Routine Subclavian arterial stenosis 1 Occurrences starting 02/16/2025 until 02/16/2026 [facility] Comment on above: 1 Occurrences starting 02/16/2025 until 02/16/2026 End: 09-06-2024 US CAROTID ARTERIES [facility] US CAROTID ARTERIES [facility] Vascular Lab Routine Subclavian arterial stenosis (HCC) 1 Occurrences starting 09/06/2023 until 09/06/2024 [facility] Work Phone: Comment on above: 1 Occurrences starting 09/06/2023 until 09/06/2024 End: 02-16-2026 US Lower extremity artery - bilateral PVR LEG [facility] Vascular Lab Routine PAD (peripheral artery disease) 1 Occurrences starting 02/16/2025 until 02/16/2026 [facility] Work Phone: Comment on above: 1 Occurrences starting 02/16/2025 until 02/16/2026 End: 04-27-2025 US.doppler Carotid arteries - bilateral [facility] Work Phone: Comment on above: Once for 1 Occurrences starting 04/27/20 until 04/27/2025 Vascular US ankle br achial index (ROXY) without exercise Vascular US ankle brachial index (ROXY) without exercise Vascular Ultrasound Routine Aortoiliac occlusive disease (Multi) Atherosclerosis of [place] artery of both lower extremities with intermittent claudication Intermittent claudication 07/11/2025 11:08 AM EDT [facility] Service Area Work Phone: End: 05-03-2024 XR Chest 2 Views XR chest 2 views Imaging Priority Discharge or Observation Once for 1 Occurrences starting 05/03/2024 until 05/03/2024 [facility] Work Phone: Comment on above: Once for 1 Occurrences starting 05/03/20 until 05/03/2024 XR Knee - left 3 Views XR knee 3 views left Imaging Routine Chronic pain of both knees 05/31/2025 11:10 AM EDT [facility] XR Knee - right 3 Views XR knee 3 views right Imaging Routine Chronic pain of both knees 05/31/2025 11:10 AM EDT [facility] Work Phone: MG-Endocrinolog [facility] Work Phone: [facility] NEGATED: Highlighted row has been ruled out! Planned Goals not documented -[facility] Work Phone: Immunizations Immunization Date Immunization Notes Care Provider Sandy david 01-10-2023 tetanus toxoid, redu krish diphtheria toxoid, and acellular pertussis vaccine, adsorbed Gilberto ESTRADA [facility] 09-24-2022 influenza, injectabl e, quadrivalent, preservative free Mindy Morgan Work Phone: VS-Ftsivjrfisuqr-DT C [place] [address] Work Phone: 09-24-2022 influenza virus vacc ine, unspecified formulation Jordan Law MD Work Phone: [facility] 03-13-2021 Pfizer-[employer] COVI D-19 Vacc 30 MCG/0.3ML Intramuscular Suspension Mindy Morgan Work Phone: MU-Iogavcfwmbijf-PY C [place] [address] Work Phone: 02-21-2021 Pfizer-BioNTech COVI D-19 Vacc 30 MCG/0.3ML Intramuscular Suspension Mindytima Morgan Work Phone: QF-Cslxjlpeueupe-UB C [place] [address] Work Phone: 07-31-2019 Influenza, injectabl e, Madin [place] Canine Kidney, preservative free, quadrivalent Mindy López Morgan Work Phone: WP-Hrjghmctgqedz-GH C [place] [facility] Work Phone: 07-31-2019 influenza virus vacc ine, unspecified formulation Oliver MARTIN-Laura Work Phone: [facility] Work Phone: 11-17-2018 pneumococcal polysaccharide vaccine, 23 valent Mindytima Morgan Work Phone: [facility] 09-13-2018 Influenza, injectabl e, Madin [place] Canine Kidney, preservative free, quadrivalent Mindy Maribel Morgan Work Phone: JB-Dcptgyhlklaro-JO C [place] [address] Work Phone: 10-26-2012 influenza virus vacc ine, whole virus Mindy Maribel Eddie Work Phone: MZ-Jobaoduxlqpjy-VR C [place] [address] Work Phone: Payers Date Payer Category Payer Private Health Insurance [facility] MEDICAID [id number] 2020 Medicaid (Managed Care) 1.2. [id number] 2020 Unknown 2020 Unknown [id number] 2018 Medicaid [facility] [id number] 2018-Present [phone] [address] [place] [address] Medicaid [id number] 2018 Medicaid [id number]. [id number] 1975 Unknown [id number] 2.16.840.1.639059.3.579.2. 174 1975 Unknown [id number] 2.16.840.1.138690.3.579.2. 174 1975 Unknown [id number] 2.16.840.1.522114.3.579.2. 593 1975 Unknown [id number] 2.16.840.1.992722.3.579.2. 732 1975 Unknown [id number] 2.16.840.1.139196.3.579.2. 1068 1975 Unknown [id number] 2.16.840.1.033195.3.579.2. 1243 1975 Unknown [id number] 2.16.840.1.060478.3.579.2. 727 1975 Unknown [id number] 2.16.840.1.460221.3.579.2. 727 1975 Unknown [id number] 2.16.840.1.700051.3.579.2. 727 1975 Unknown [id number] 2.16.840.1.498612.3.579.2. 727 1975 Unknown [id number] 2.16.840.1.409222.3.579.2. 727 1975 Unknown [id number] 2.16.840.1.919008.3.579.2. 72 1975 Unknown [id number] 2.16.840.1.974184.3.579.2. 1975 Unknown [id number] 2.16.840.1.714496.3.579.2. 1975 Unknown [id number] 2.16.840.1.757989.3.579.2. 1975 Unknown [id number] 2.16.840.1.473602.3.579.2. 1975 Unknown [id number] 2.16.840.1.115450.3.579.2. 1975 Unknown [id number] 2.16.840.1.431989.3.579.2. 1975 Unknown [id number] 2.16.840.1.336422.3.579.2. 1975 Unknown [id number] 2.16.840.1.842455.3.579.2. 1975 Unknown [id number] 2.16.840.1.288547.3.579.2. 1975 Unknown [id number] 2.16.840.1.242742.3.579.2. 1975 Unknown [id number] 2.16.840.1.650440.3.579.2. 1286 1975 Unknown [id number] 2.16.840.1.270759.3.579.2. 1259 1975 Unknown [id number] 2.16.840.1.832801.3.579.2. 9 1975 Unknown [id number] 2.16.840.1.732131.3.579.2. 1259 1975 Unknown [id number] 2.16.840.1.237399.3.579.2. 1259 1975 Unknown [id number] 2.16.840.1.633495.3.579.2. 1258 1975 Unknown [id number] 2.16.840.1.363689.3.579.2. 1258 1975 Unknown [id number] 2.16.840.1.260495.3.579.2. 1258 1975 Unknown [id number] 2.16.840.1.384919.3.579.2. 1258 1975 Unknown [id number] 2.16.840.1.008737.3.579.2. 1245 1975 Unknown [id number] 2.16.840.1.839598.3.579.2. 1245 1975 Unknown [id number] 2.16.840.1.703468.3.579.2. 1245 1975 Unknown [id number] 2.16.840.1.456894.3.579.2. 1245 1975 Unknown [id number] 2.16.840.1.018169.3.579.2. 1245 1975 Unknown [id number] 2.16.840.1.361388.3.579.2. 1245 1975 Unknown [id number] 2.16.840.1.746318.3.579.2. 1245 1975 Unknown [id number] 2.16.840.1.515309.3.579.2. 1245 1975 Unknown [id number] 2.16.840.1.118998.3.579.2. 1245 1975 Unknown [id number] 2.16.840.1.118640.3.579.2. 1245 1975 Unknown [id number] 2.16.840.1.582773.3.579.2. 1245 1975 Unknown [id number] 2.16.840.1.816868.3.579.2. 6 1975 Unknown [id number] 2.16.840.1.369513.3.579.2. 1245 1975 Unknown [id number] 2.16.840.1.020025.3.579.2. 1245 1975 Unknown [id number] 2.16.840.1.627081.3.579.2. 727 1975 Unknown [id number] 2.16.840.1.373923.3.579.2. 72 1975 Unknown [id number] 2.16.840.1.574373.3.579.2. 1244 1975 Unknown [id number] 2.16.840.1.532138.3.579.2. 1244 1975 Unknown [id number] 2.16.840.1.834347.3.579.2. 1244 1975 Unknown [id number] 2.16.840.1.129553.3.579.2. 1244 1975 Unknown [id number] 2.16.840.1.684211.3.579.2. 1244 1975 Unknown [id number] 2.16.840.1.612125.3.579.2. 1243 1975 Unknown [id number] 2.16.840.1.801472.3.579.2. 1243 1975 Unknown [id number] 2.16.840.1.590946.3.579.2. 1243 1975 Unknown [id number] 2.16.840.1.352054.3.579.2. 1243 1975 Unknown [id number] 2.16.840.1.633860.3.579.2. 1243 1975 Unknown [id number] 2.16.840.1.491478.3.579.2. 1243 1975 Unknown [id number] 2.16.840.1.660350.3.579.2. 1244 1975 Unknown [id number] 2.16.840.1.931991.3.579.2. 1244 1975 Unknown [id number] 2.16.840.1.559269.3.579.2. 1244 1975 Unknown [id number] 2.16.840.1.987265.3.579.2. 1244 1959 Medicaid [id number] Social History Date Type Detail Facility Assertion Unknown if ever smoked [facility] Work Phone: Start: 11-16-2018 End: 07-11-2025 No alcohol use No alcohol use [facility] Comment on above: 1/2 to 3/4 ppd; 6 cokes, 2 coffee da scot; Tobacco smoking consumption unknown [facility] Tobacco Cigarettes [facility] Comment on above: 12ppd Start: 09-06-2023 End: 07-11-2025 Sex Assigned At Female [employer] Other Start: 11-16-2018 End: 07-11-2025 Tobacco smoking status NHIS Smokes tobacco daily [facility] History of tobacco use Cigar Smoker [facility] Start: 11-16-2018 End: 07-11-2025 Tobacco use and exposure Smokeless tobacco non-user [facility] Start: 12-02-2020 End: 01-13-2024 Alcohol intake Current non-drinker of alcohol (finding) [facility] Start: 11-16-2018 History SDOH Alcohol Comment 10 years sober [facility] Start: 12-02-2020 End: 07-16-2022 Tobacco Comment 1-2 cigs day [facility] Start: 1975 [facility] History of tobacco use [facility] Start: 07-06-2022 End: 04-04-2025 Exposure to SARS-CoV-2 (event) Not sure [facility] Tobacco smoking status [facility] Start: 1975 Sex Assigned At Not on file [facility] Start: 10-03-2022 PHQ2 Score 6 [facility] Start: 02-07-2020 Gender identity Identifies as female gender (finding) [facility] Start: 02-07-2020 Sexual orientation Homosexual (findi ng) [facility] Start: 09-07-2023 End: 07-11-2025 Alcohol intake Ex-drinker (finding) [facility] Work Phone: Start: 12-10-2023 Sexual orientation Heterosexual (fin ding) [facility] Work Phone: Start: 12-15-2023 Alcohol Comment quit 2007 [facility] Work Phone: Start: 02-19-2010 Sex Female (finding) [facility] Start: 04-15-2023 End: 03-15-2025 Tobacco smoking status NHIS Occasional tobacco smoker [facility] Start: 08-15-2024 Alcoholic beverage intake Current drinker of alcohol (finding) [facility] How often to you hav e a drink containing alcohol? 2-4 times a month [facility] How many standard drinks containing alcohol do you have on a typical day? 1 or 2 [facility] How often do you hav e 6 or more drinks on 1 occasion? Never [facility] Start: 03-15-2025 End: 05-31-2025 Alcoholic beverage intake Lifetime non-drinker (finding) [facility] History of tobacco use Passive smoker [facility] Work Phone: Medical Equipment Procedure Code Equipment Code Equipment Origin al Text Equipment Identifier Dates Start: 03-10-2017 [facility] Lancets Ultra-Thin 30G TEST BLOOD SUGAR BEFORE MEALS AND AT BEDTIME Quantity: 100 Refills: 0 Start : 14-Jan-2017 Active Start: 01-14-2017 True Metrix Bloo d Glucose Test In Vitro Strip TEST BEFORE MEALS AND AT BEDTIME Quantity: 50 Refills: 0 Start : 17-Nov-2016 Active Start: 11-17-2016 BD Insulin Syr Ultrafine II 31G X 5/16 0.5 ML USE DIRECTED 4 TIMES A DAY Quantity: 120 Refills: 0 Start : 10-Mar-2017 Active Start: 03-10-2017 CVS Lancets Ultra-Thin 30G TEST BLOOD SUGAR BEFORE MEALS AND AT BEDTIME Quantity: 100 Refills: 0 Start : 14-Jan-2017 Active Start: 01-14-2017 FreeStyle Test I n Vitro Strip TEST 4 TIMES DAILY. Quantity: 3 Refills: 0 Oliver Auguste PA-C Start : 14-Sep-2019 Active 100 Strip Box Start: 09-14-2019 Pen [place] 30G X 5 MM Use new needle with each insulin injection Quantity: 180 Refills: 3 Oliver Auguste PA-C Start : 01-Aug-2019 Active Start: 08-01-2019 True Metrix Bloo d Glucose Test In Vitro Strip TEST BEFORE MEALS AND AT BEDTIME Quantity: 50 Refills: 0 Start : 17-Nov-2016 Active Start: 11-17-2016 BD Insulin Syr Ultrafine II 31G X 5/16 0.5 ML USE DIRECTED 4 TIMES A DAY Quantity: 120 Refills: 0 Start : 10-Mar-2017 Active Start: 03-10-2017 [facility] Lancets Ultra-Thin 30G TEST BLOOD SUGAR BEFORE MEALS AND AT BEDTIME Quantity: 100 Refills: 0 Start : 14-Jan-2017 Active Start: 01-14-2017 Pen [place] 30G X 5 MM Use new needle with each insulin injection Quantity: 180 Refills: 3 Oliver Auguste PA-C Start : 01-Aug-2019 Active Start: 08-01-2019 True Metrix Bloo d Glucose Test In Vitro Strip TEST BEFORE MEALS AND AT BEDTIME Quantity: 50 Refills: 0 Start : 17-Nov-2016 Active Start: 11-17-2016 BD Insulin Syr Ultrafine II 31G X 5/16 0.5 ML USE DIRECTED 4 TIMES A DAY Quantity: 120 Refills: 0 Start : 10-Mar-2017 Active Start: 03-10-2017 [facility] Lancets Ultra-Thin 30G TEST BLOOD SUGAR BEFORE MEALS AND AT BEDTIME Quantity: 100 Refills: 0 Start : 14-Jan-2017 Active Start: 01-14-2017 FreeStyle Test I n Vitro Strip TEST 4 TIMES DAILY. Quantity: 3 Refills: 0 Oliver Auguste PA-C Start : 14-Sep-2019 Active 100 Strip Box Start: 09-14-2019 Pen [place] 30G X 5 MM Use new needle with each insulin injection Quantity: 180 Refills: 3 Oliver Auguste PA-C Start : 01-Aug-2019 Active Start: 08-01-2019 True Metrix Bloo d Glucose Test In Vitro Strip TEST BEFORE MEALS AND AT BEDTIME Quantity: 50 Refills: 0 Start : 17-Nov-2016 Active Start: 11-17-2016 BD Insulin Syr Ultrafine II 31G X 5/16 0.5 ML USE DIRECTED 4 TIMES A DAY Quantity: 120 Refills: 0 Start : 10-Mar-2017 Active Start: 03-10-2017 [facility] Lancets Ultra-Thin 30G TEST BLOOD SUGAR BEFORE MEALS AND AT BEDTIME Quantity: 100 Refills: 0 Start : 14-Jan-2017 Active Start: 01-14-2017 FreeStyle Test I n Vitro Strip TEST 4 TIMES DAILY. Quantity: 3 Refills: 0 Oliver Auguste PA-C Start : 14-Sep-2019 Active 100 Strip Box Start: 09-14-2019 Pen [place] 30G X 5 MM Use new needle with each insulin injection Quantity: 180 Refills: 3 Oliver Auguste PA-C Start : 01-Aug-2019 Active Start: 08-01-2019 True Metrix Bloo d Glucose Test In Vitro Strip TEST BEFORE MEALS AND AT BEDTIME Quantity: 50 Refills: 0 Start : 17-Nov-2016 Active Start: 11-17-2016 BD Insulin Syr Ultrafine II 31G X 5/16 0.5 ML USE DIRECTED 4 TIMES A DAY Quantity: 120 Refills: 0 Start : 10-Mar-2017 Active Start: 03-10-2017 [facility] Lancets Ultra-Thin 30G TEST BLOOD SUGAR BEFORE MEALS AND AT BEDTIME Quantity: 100 Refills: 0 Start : 14-Jan-2017 Active Start: 01-14-2017 FreeStyle Test I n Vitro Strip TEST 4 TIMES DAILY. Quantity: 3 Refills: 0 Oliver Auguste PA-C Start : 14-Sep-2019 Active 100 Strip Box Start: 09-14-2019 Pen [place] 30G X 5 MM Use new needle with each insulin injection Quantity: 180 Refills: 3 Steph Auguste PA-Cin Start : 01-Aug-2019 Active Start: 08-01-2019 BD Insulin Syr Ultrafine II 31G X 5/16 0.5 ML USE DIRECTED 4 TIMES A DAY Quantity: 120 Refills: 0 Start : 10-Mar-2017 Active Start: 03-10-2017 [facility] Lancets Ultra-Thin 30G TEST BLOOD SUGAR BEFORE MEALS AND AT BEDTIME Quantity: 100 Refills: 0 Start : 14-Jan-2017 Active Start: 01-14-2017 FreeStyle Test I n Vitro Strip TEST 4 TIMES DAILY. Quantity: 3 Refills: 0 Steph Auguste PA-Cin Start : 14-Sep-2019 Active 100 Strip Box Start: 09-14-2019 Pen [place] 30G X 5 MM Use new needle with each insulin injection Quantity: 180 Refills: 3 Steph Auguste PA-Cin Start : 01-Aug-2019 Active Start: 08-01-2019 True Metrix Bloo d Glucose Test In Vitro Strip TEST BEFORE MEALS AND AT BEDTIME Quantity: 50 Refills: 0 Start : 17-Nov-2016 Active Start: 11-17-2016 BD Insulin Syr Ultrafine II 31G X 5/16 0.5 ML USE DIRECTED 4 TIMES A DAY Quantity: 120 Refills: 0 Start : 10-Mar-2017 Active Start: 03-10-2017 [facility] Lancets Ultra-Thin 30G TEST BLOOD SUGAR BEFORE MEALS AND AT BEDTIME Quantity: 100 Refills: 0 Start : 14-Jan-2017 Active Start: 01-14-2017 FreeStyle Test I n Vitro Strip TEST 4 TIMES DAILY. Quantity: 3 Refills: 0 Steph Auguste PA-Cin Start : 14-Sep-2019 Active 100 Strip Box Start: 09-14-2019 Pen [place] 30G X 5 MM Use new needle with each insulin injection Quantity: 180 Refills: 3 Hina SAUCEDA Oliver Start : 01-Aug-2019 Active Start: 08-01-2019 True Metrix Bloo d Glucose Test In Vitro Strip TEST BEFORE MEALS AND AT BEDTIME Quantity: 50 Refills: 0 Start : 17-Nov-2016 Active Start: 11-17-2016 BD Insulin Syr Ultrafine II 31G X 5/16 0.5 ML USE DIRECTED 4 TIMES A DAY Quantity: 120 Refills: 0 Start : 10-Mar-2017 Active Start: 03-10-2017 [facility] Lancets Ultra-Thin 30G TEST BLOOD SUGAR BEFORE MEALS AND AT BEDTIME Quantity: 100 Refills: 0 Start : 14-Jan-2017 Active Start: 01-14-2017 FreeStyle Test I n Vitro Strip TEST 4 TIMES DAILY. Quantity: 3 Refills: 0 Steph Auguste PA-Cin Start : 14-Sep-2019 Active 100 Strip Box Start: 09-14-2019 Pen [place] 30G X 5 MM Use new needle with each insulin injection Quantity: 180 Refills: 3 Hina KOMALBharathOliver Start : 01-Aug-2019 Active Start: 08-01-2019 BD Insulin Syr Ultrafine II 31G X 5/16 0.5 ML USE DIRECTED 4 TIMES A DAY Quantity: 120 Refills: 0 Start : 10-Mar-2017 Active Start: 03-10-2017 [facility] Lancets Ultra-Thin 30G TEST BLOOD SUGAR BEFORE MEALS AND AT BEDTIME Quantity: 400 Refills: 3 Hina KOMAL Oliver Start : 14-Jan-2017 Active Start: 01-14-2017 FreeStyle Test I n Vitro Strip TEST 4 TIMES DAILY. Quantity: 3 Refills: 3 Hina KOMALBharathOliver Start : 14-Sep-2019 Active 100 Strip Box Start: 09-14-2019 Pen [place] 30G X 5 MM Use new needle with each insulin injection Quantity: 180 Refills: 3 Reginodillanjose KOMAL Oliver Start : 01-Aug-2019 Active Start: 08-01-2019 BD Insulin Syr Ultrafine II 31G X 5/16 0.5 ML USE DIRECTED 4 TIMES A DAY Quantity: 120 Refills: 0 Start : 10-Mar-2017 Active Start: 03-10-2017 BD Pen Needle Mi ni U/F 31G X 5 MM Use new needle with each insulin injection Quantity: 1 Refills: 7 Reginochelsie SAUCEDA Oliver Start : 05-Sep-2020 Active 100 Unit Box Start: 09-05-2020 [facility] Lancets Ultra-Thin 30G TEST BLOOD SUGAR BEFORE MEALS AND AT BEDTIME Quantity: 400 Refills: 3 Reginochelsie SAUCEDA Oliver Start : 14-Jan-2017 Active Start: 01-14-2017 FreeStyle Lite Test In Vitro Strip TEST 4 TIMES DAILY. Quantity: 2 Refills: 11 Reginodillanjose KOMALBharathOliver Start : 20-May-2020 Active 100 Strip Box Start: 05-20-2020 Pen [place] 30G X 5 MM Use new needle with each insulin injection Quantity: 180 Refills: 3 Johnjose SAUCEDA Oliver Start : 01-Aug-2019 Active Start: 08-01-2019 BD Insulin Syr Ultrafine II 31G X 5/16 0.5 ML USE DIRECTED 4 TIMES A DAY Quantity: 120 Refills: 0 Start : 10-Mar-2017 Active Start: 03-10-2017 [facility] Lancets Ultra-Thin 30G TEST BLOOD SUGAR BEFORE MEALS AND AT BEDTIME Quantity: 100 Refills: 0 Start : 14-Jan-2017 Active Start: 01-14-2017 FreeStyle Test I n Vitro Strip TEST 4 TIMES DAILY. Quantity: 3 Refills: 0 Omoregie PA-C, Oliver Start : 14-Sep-2019 Active 100 Strip Box Start: 09-14-2019 Pen [place] 30G X 5 MM Use new needle with each insulin injection Quantity: 180 Refills: 3 Omoregie PA-C, Oliver Start : 01-Aug-2019 Active Start: 08-01-2019 True Metrix Bloo d Glucose Test In Vitro Strip TEST BEFORE MEALS AND AT BEDTIME Quantity: 50 Refills: 0 Start : 17-Nov-2016 Active Start: 11-17-2016 BD Insulin Syr Ultrafine II 31G X 5/16 0.5 ML USE DIRECTED 4 TIMES A DAY Quantity: 120 Refills: 0 Start : 10-Mar-2017 Active Start: 03-10-2017 [facility] Lancets Ultra-Thin 30G TEST BLOOD SUGAR BEFORE MEALS AND AT BEDTIME Quantity: 400 Refills: 3 Omoregie PA-C, Oliver Start : 14-Jan-2017 Active Start: 01-14-2017 FreeStyle Lite Test In Vitro Strip TEST 4 TIMES DAILY. Quantity: 2 Refills: 11 Omoregie PA-C, Oliver Start : 20-May-2020 Active 100 Strip Box Start: 05-20-2020 Pen [place] 30G X 5 MM Use new needle with each insulin injection Quantity: 180 Refills: 3 Omoregie PA-C, Oliver Start : 01-Aug-2019 Active Start: 08-01-2019 Patch, Dura Repair, Duraguard, 4 X 4 Cm Case [id number] Start: 12-04-2021 Comment on above: Description: Convert ed from [facility]. Please see archived information for full log information. Test blood sugar s 4 times a day as directed [id number] Start: 08-05-2021 Audio Video Mechanic Only, Insertable, Reveal Linq Ii, Loop Recorder - [id number] Start: 12-10-2023 Lead, Capsurefix Novus, 52 Cm - [id number] - [id number] Start: 05-02-2024 Lead, Capsurefix Novus, 45 Cm - [id number] - [id number] Start: 05-02-2024 Pacemaker, Dual Chamber, [place] Mri Xt Dr - [id number] Start: 05-02-2024 Check BG [id number] Start: 06-29-2024 Functional Status Date Assessment Result Facility 07-11-2025 Patient Health Questionnaire 2 item (PHQ-2) [Reported] [facility] Work Phone: 04-04-2025 Patient Health Questionnaire 2 item (PHQ-2) [Reported] [facility] Work Phone: 04-04-2025 [place] - suicide severity rating scale screener - recent [C-SSRS] [facility] Work Phone: 01-09-2025 Functional Status N/A [facility] 10-04-2024 Functional Status N/A [facility] 07-26-2024 Functional Status N/A [facility] 01-20-2024 Functional Status N/A [facility] 08-02-2023 Functional Status N/A [facility] 07-01-2023 Functional Status N/A [facility] 10-07-2022 Functional Status N/A [facility] 09-24-2022 Functional Status N/A [facility] 09-04-2022 Functional Status N/A [facility] 11-19-2018 Are you deaf, or do you have serious difficulty hearing No 11/19/2018 10:00 AM Alejandro Ovalle (Rn), RN No [facility] 11-19-2018 Are you blind, or do you have serious difficulty seeing, even when wearing glasses No 11/19/2018 10:00 AM Alejandro Ovalle (Rn), RN No [facility] 11-19-2018 Do you have serious difficulty walking or climbing stairs No 11/19/2018 10:00 AM Alejandro Ovalle (Rn), RN No [facility] 11-19-2018 Do you have difficul ty dressing or bathing No 11/19/2018 10:00 AM Alejandro Ovalle (Rn), RN No [facility] 11-19-2018 Because of a physica l, mental, or emotional condition, do you have difficulty doing errands alone such as visiting a physician's office or shopping No 11/19/2018 10:00 AM Alejandro Oavlle (Rn), RN No [facility] NEGATED: Highlighted row Functional performance Functional status health issues are not documented Disease [facility] [employer] Work Phone: Mental Status Date Assessment Result Facility 11-19-2018 Because of a physical, mental, or emotional condition, do you have serious difficulty concentrating, remembering, or making decisions No 11/19/2018 10:00 AM Alejandro Ovalle (Rn), RN No [facility] NEGATED: Highlighted row Cognitive function [Interpretation] Cognitive status health issues are not documented Disease [facility] [employer] Phone: Clinical Notes 12-21-2018 to 07-22-2025 Suad Jones MD - 07/18/2025 10:00 AM Melissa Leong MD - 07/11/2025 12:45 PM Donald Westbrook MD - 06/04/2025 8:15 AM EDTPatient InstructionsPatient Instructions Note Date & Type Note Facility 07-22-2025 Note ED Patient Education Note Dermatology Skin Yeast Infection A skin yeast infection is a condition in which there is an overgrowth of yeast (Catheirne) that normally lives on the skin. This condition usually occurs in areas of the skin that are constantly warm and moist, such as the skin under the breasts or armpits, or in the groin and other body folds. What are the causes? This condition is caused by a change in the normal balance of the yeast that live on the skin. What increases the risk? You are more likely to develop this condition if you: ??? Are obese. ??? Are . ??? Are 65 years of age or older. ??? Wear tight clothing. ??? Have any of the following conditions: ? Diabetes. ? Malnutrition. ? A weak body defense system (immune system). ??? Take medicines such as: ? control pills. ? Antibiotics. ? Steroid medicines. What are the signs or symptoms? The most common symptom of this condition is itchiness in the affected area. Other symptoms include: ??? A red, swollen area of the skin. ??? Bumps on the skin. How is this diagnosed? This condition is diagnosed with a medical history and physical exam. Your health care provider may check for yeast by taking scrapings of the skin to be viewed under a microscope. How is this treated? This condition is treated with medicine. Medicines may be prescribed or available over the counter. The medicines may be: ??? Taken by mouth (orally). ??? Applied as a cream or powder to your skin. Follow these instructions at home: ??? Take or apply lgcq-ayu-zkgxnid and prescription medicines only as told by your health care provider. ??? Maintain a healthy weight. If you need help losing weight, talk with your health care provider. ??? Keep your skin clean and dry. ??? Wear loose-fitting clothing. ??? If you have diabetes, keep your blood sugar under control. ??? Keep all follow-up visits. This is important. Contact a health care provider if: ??? Your symptoms go away and then come back. ??? Your symptoms do not get better with treatment. ??? Your symptoms get worse. ??? Your rash spreads. ??? You have a fever or chills. ??? You have new symptoms. ??? You have new warmth or redness of your skin. ??? Your rash is painful or bleeding. Summary ??? A skin yeast infection is a condition in which there is an overgrowth of yeast (Catherine) that normally lives on the skin. ??? Take or apply rbgx-dzd-uwtndeh and prescription medicines only as told by your health care provider. ??? Keep your skin clean and dry. ??? Contact a health care provider if your symptoms do not get better with treatment. This information is not intended to replace advice given to you by your health care provider. Make sure you discuss any questions you have with your health care provider. Document Revised: 01/13/2022 Document Reviewed: 01/13/2022 [email or web address] Patient Education ? 2023 [email or web address] Orthopedics Chronic Knee Pain, Adult Chronic knee pain is pain in one or both knees that lasts longer than 3 months. Symptoms of chronic knee pain may include swelling, stiffness, and discomfort. Age-related wear and tear (osteoarthritis) of the knee joint is the most common cause of chronic knee pain. Other possible causes include: ??? A long-term immune-related disease that causes inflammation of the knee (rheumatoid arthritis). This usually affects both knees. ??? Inflammatory arthritis, such as gout or pseudogout. ??? An injury to the knee that causes arthritis. ??? An injury to the knee that damages the ligaments. Ligaments are strong tissues that connect bones to each other. ??? Runner's knee or pain behind the kneecap. Treatment for chronic knee pain depends on the cause. The main treatments for chronic knee pain are physical therapy and weight loss. This condition may also be treated with medicines, injections, a knee sleeve or brace, and by using crutches. Rest, ice, pressure (compression), and elevation, also known as RICE therapy, may also be recommended. Follow these instructions at home: If you have a knee sleeve or brace: ??? Wear the knee sleeve or brace as told by your health care provider. Remove it only as told by your health care provider. ??? Loosen it if your toes tingle, become numb, or turn cold and blue. ??? Keep it clean. ??? If the sleeve or brace is not waterproof: ? Do not let it get wet. ? Remove it if allowed by your health care provider, or cover it with a watertight covering when you take a bath or a shower. Managing pain, stiffness, and swelling ??? If directed, apply heat to the affected area as often as told by your health care provider. Use the heat source that your health care provider recommends, such as a moist heat pack or a heating pad. ? If you alex (more content not included)... [facility] 07-18-2025 History of Present illness Narrative Hien aLm is a 49 y.o. female No ref. provider found presents with chief complaint of Diabetes and Follow-up HPI: IM : 07/2025 Follow-up visit , A1c in the office 8.1 blood sugar 160, currently on Lantus 20, Humalog 04/15/10 plus scale, Trulicity 3 mg once weekly, we did 1 mg DST 4.2 IM : 05/2025 Follow-up visit 05/30/2025 for kidney function within normal limits, total cholesterol 155, triglycerides 625, prolactin 7.58, FSH 15.2, vitamin-D 32, acth 14, cortisol 11.3 she mentioned she took the tablet of dexamethasone the night before? , currently on Trulicity 3 mg once weekly, sliding scale only, does not use fixed dose. 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 SUBJECTIVE: MEDICATIONS: Current Outpatient Medications Medication Instructions Anoro Ellipta 62.5-25 MCG/ACT aerosol powder aspirin 81 mg, Daily RT atorvastatin (Lipitor) 40 MG tablet Every 24 hours Banophen 25 MG capsule TAKE 2 CAPSULES THE MORNING OF THE CTA Briviact 200 mg, 2 times daily buPROPion SR (WELLBUTRIN SR) 150 mg, 2 times daily cholecalciferol (VITAMIN D-3) 50,000 Units, 2 times weekly clotrimazole (Lotrimin) 1 % cream 1 Application, 2 times daily clotrimazole-betamethasone (Lotrisone) cream 2 times daily Continuous Blood Gluc Sensor (FreeStyle [place] 2 Sensor) misc cyanocobalamin (Vitamin B-12) 1000 MCG/ML injection cyclobenzaprine (FLEXERIL) 10 mg, 3 times daily PRN dexAMETHasone (DECADRON) 1 mg, Oral, Once diclofenac sodium 1 % gel ergocalciferol (Vitamin D2) 1.25 MG (68792 UT) capsule ezetimibe (ZETIA) 10 mg, Daily fenofibrate (TRICOR) 145 mg, Daily fluconazole (Diflucan) 100 MG tablet Fycompa 4 mg, Nightly gabapentin (Neurontin) 600 MG tablet Every 8 hours insulin aspart (NOVOLOG) 30 Units, 3 times daily with meals insulin lispro (HUMALOG KWIKPEN) 10 Units, Subcutaneous, 3 times daily with meals lamoTRIgine (LaMICtal) 25 MG tablet TAKE 1 TAB DAILY X 2 WEEKS, THEN 2 TABS DAILY X 2 WEEKS Lancets (pluriSelect Delica Plus Rnonoc96V) mis TEST BLOOD SUGAR Lantus SoloStar 20 Units, Subcutaneous, Nightly lisinopril 5 MG tablet Every 24 hours meclizine (ANTIVERT) 25 mg, Every 6 hours PRN metoprolol tartrate (LOPRESSOR) 25 mg, 2 times daily montelukast (Singulair) 10 MG tablet montelukast (Singulair) 4 MG chewable tablet mupirocin (Bactroban) 2 % ointment Apply topically naloxone (Narcan) 4 mg/0.1 mL nasal spray naproxen (NAPROSYN) 500 mg, 2 times daily PRN nitroglycerin (Nitrostat) 0.[address] 1 TABLET UNDER TONGUE EVERY 5 MINS, UP TO 3 DOSES NEEDED FOR CHEST PAIN ondansetron (Zofran) 4 MG tablet Every 8 hours oxyCODONE-acetaminophen (Percocet) 5-325 MG tablet TAKE 1 - 2 TABS ORALLY EVERY 6 HOURS NEEDED FOR PAIN FOR 3 DAYS pantoprazole (PROTONIX) 40 mg, 2 times daily Pantoprazole Sodium (PROTONIX PO) spironolactone (ALDACTONE) 50 mg, 2 times daily sucralfate (Carafate) 1 GM/10ML suspension TAKE 2 TEASPOONFUL BY MOUTH 4 TIMES A DAY topiramate (TOPAMAX) 100 mg, Daily traMADol (ULTRAM) 50 mg, Every 6 hours PRN Trulicity 1.5 MG/0.5ML solution pen-injector valACYclovir (Valtrex) 500 MG tablet Ventolin HFA 108 (90 Base) MCG/ACT inhaler ALLERGIES: Allergies Allergen Reactions Iodinated Contrast Media Anaphylaxis Other Hives Shellfish-Derived Products Anaphylaxis and Rash Dimenhydrinate Other Reaction(s): Hives Duloxetine Swelling Duloxetine Hcl Swelling Fluticasone-Salmeterol Hives Meclizine Swelling Metformin Other Reaction(s): rash Pregabalin Other Reaction(s): Other (See Comments), tongue swells, Unknown Caused suicidal ideations Causes depression and suicidal thoughts Insulin Aspart (Human Analog) (Yeast) Rash Past Medical History: Diagnosis Date Arnold-Chiari deformity (HCC) 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) Diabetic neuropathy (HCC) Herpes simplex History of MRSA infection Hypercortisolism (HCC) Hypertension IBS (irritable bowel syndrome) Multinodular goiter PCOS (polycystic ovarian syndrome) Seizure disorder (HCC) Sleep apnea SNHL (sensorineural hearing loss) Type 2 diabetes mellitus (HCC) Vitamin D deficiency Past Surgical History: Procedure Laterality Date APPENDECTOMY CHOLECYSTECTOMY CT ANGIOGRAM ABDOMEN PELVIS 01/13/2024 CT ANGIOGRAM ABDOMEN PELVIS 01/13/2024 CT ANGIOGRAM HEART CORONARY 01/14/2024 CT ANGIOGRAM HEART CORONARY 01/14/2024 REVIEW OF SYMPTOMS: 14 POINT OF SYSTEM REVIEWED AND NEGATIVE OBJECTIVE: Constitutional: Afebrile @ home; no weakness or night sweats SKIN: No change in skin color; no itching, rash or lesions; no hair loss; HEENT: No HAs or injury; no dizziness; No difficulty with vision; no eye pain, discharge or lesions; no hearing loss or difficulty; no nasal discharge, NECK: No pain, limitation of motion, lumps or swollen glands RESP: No cough, wheezing or difficulty breathing. No CP with breathing; CARDIO: No CP , SOB or fatigue, No edema, palpitations or dyspnea with exertion GI: No N/V/D or abd. pain; good appetite with no recent change. No heart burn, liver or gallbladder disease; no rectal bleeding or pain : No urinary pain , frequency or odor. MUSCULOSKELETAL: No muscle pain or cramps; no extremity weakness.No joint pain, stiffness, swelling or limitation of movement NEUROLOGY: No H/O seizures, stroke or fainting. No weakness, tremors. Hematology: No bleeding problems or excessive bruising ENDOCRINE: No increase in hunger, thirst or urination; admits compliance to medical management plan Feet: numbness tingling yes , ulcers or skin break no Lab Results Component Value Date HGBA1C 8.1 07/18/2025 HGBA1C 9.0 05/30/2025 HGBA1C 7.8 03/15/2025 Lab Results Component Value Date GLU 160 07/18/2025 GLU 194 05/30/2025 GLU 272 03/15/2025 08/10/2023 1:46 PM 10/19/2023 1:57 PM 03/15/2025 11:00 AM 03/19/2025 9:44 AM 05/30/2025 10:05 AM 05/31/2025 4:06 PM 07/18/2025 10:06 AM Vitals BMI 34.28 kg/m2 34.28 kg/m2 39.31 kg/m2 39.31 kg/m2 39.14 kg/m2 37.86 kg/m2 36.17 kg/m2 BSA (m2) 2.07 m2 2.07 m2 2.17 m2 2.17 m2 2.16 m2 2.15 m2 2.1 m2 Systolic 122 100 124 Diastolic 70 68 86 Heart Rate 74 74 64 SpO2 94 % 99 % 98 % Temp 97.2 F 97.6 F Resp 18 16 16 Height (in) 5' 5 5' 5 5' 4 5' 4 5' 4 5' 4.5 5' 4.5 Weight (lb) 206 206 229 229 228 224 214 Visit Report Report Report Report Report Report Report ASSESSMENT AND PLAN: Assessment/Plan Diagnoses and all orders for this visit: 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 Vitamin D deficiency Hyperlipemia, mixed Encounter for dietary consultation Class 2 severe obesity due to excess calories with serious comorbidity and body mass index (BMI) of 36.0 to 36.9 in adult ([facility]) Diet and exercise reviewed with the patient Hypercortisolism (HCC) Hypercortisolism (HCC) 1 mg Dexamethasone abnormal 4.2 Used to be on korlym for almost 1 year, off since 2021. History of brain surgery Due to Arnold Chiari malformation Follow up in about 4 months (around 11/17/2025). documented in this encounter [facility] 07-11-2025 History of Present illness Narrative Hien Lam 49 y.o. 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 Since last seen she has been having multiple medical problems and has been complaining of right arm left arm pain which is fluctuating. The time of my evaluation she complains of dull pain in the right arm. I would like to continue her Vimpat and Topamax which she is taking but increase the dose to 150 twice a day since she has been still having headache on and off. 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 Due to technical limitations of voice recognition and human error, this note may not accurately reflect the care of the patient. Review of Systems Constitutional: Negative for fatigue, fever and unexpected weight change. HENT: Negative for dental problem, ear pain, hearing loss, sinus pressure, tinnitus and trouble swallowing. Eyes: Negative for photophobia, pain and visual disturbance. Respiratory: Negative for cough, shortness of breath and wheezing. Cardiovascular: Negative for chest pain, palpitations and leg swelling. Gastrointestinal: Negative for abdominal pain, nausea and vomiting. Genitourinary: Negative for difficulty urinating, enuresis and frequency. Musculoskeletal: Positive for arthralgias and gait problem. Negative for back pain, joint swelling, neck pain and neck stiffness. Skin: Negative for pallor and rash. Allergic/Immunologic: Negative for food allergies. Neurological: Positive for seizures. Negative for dizziness, tremors, syncope, facial asymmetry, speech difficulty, weakness, light-headedness, numbness and headaches. Hematological: Negative for adenopathy. Does not bruise/bleed easily. Psychiatric/Behavioral: Negative for agitation, behavioral problems, confusion, hallucinations and sleep disturbance. The patient is not hyperactive. Problem List[1] Medical History[2] Surgical History[3] reports that she has been smoking cigarettes and cigars. She has been exposed to tobacco smoke. She has never used smokeless tobacco. She reports that she does not currently use alcohol. She reports current drug use. Drug: Marijuana. BP 111/65 (BP Location: Left arm, Patient Position: Sitting, BP Cuff Size: Adult) Pulse 76 Ht 1.626 m (5' 4 ) Wt 98.4 kg (217 lb) BMI 37.25 kg/m OBJECTIVE Physical Exam/Neurological Exam Constitutional: General appearance: no acute distress . Patient has quite a few coarse hairs and on the face probably from hirsutism. Auscultation of Heart: Regular rate and rhythm, no murmurs, normal S1 and S2. Carotid Arteries: Intact without any bruits. Neck is supple. No lymph adenopathy. Peripheral Vascular Exam: Pulses 1 +and equal in all extremities. No swelling, varicosities in lower extremities,, edema or tenderness to palpations. Abdomen is soft, nondistended. No organomegaly. Mental status: The patient was in no distress, alert, interactive and cooperative. Affect is appropriate. Orientation: oriented to person, oriented to place and oriented to time. Memory: recent memory intact and remote memory intact. Attention: normal attention span and normal concentrating ability. Language: normal comprehension and no difficulty naming common objects. Fund of knowledge: Patient displays adequate knowledge of current events, adequate fund of knowledge regarding past history and adequate fund of knowledge regarding vocabulary. Eyes: The ophthalmoscopic examination was normal. The fundi are visualized with normal disc margins and without. Cranial nerve II: Visual pool full to confrontation. Cranial nerves III, IV, and : Pupils round, equally reactive to light; no ptosis. EOMs intact. No nystagmus. Cranial Nerve V: Facial sensation intact bilaterally. Cranial nerve VII: Normal and symmetric facial strength. Cranial nerve VIII: Hearing is impaired in the right ear but normal in the left ear. Cranial nerves IX and X: Palate elevates symmetrically. Cranial nerve XI: Shoulder shrug and neck rotation strength are intact. Cranial nerve XII: Tongue midline with normal strength. Motor: Motor exam was normal. Muscle bulk was normal in both upper and lower extremities. Muscle tone was normal in both upper and lower extremities. Muscle strength was 5/5 throughout. no abnormal or adventitious movements were present. Deep Tendon Reflexes: left biceps 2+ , right biceps 2+, left triceps 2+, right triceps 2+, left brachioradialis 2+, right brachioradialis 2+, left patella 2+, right patella 2+, left ankle jerk 2+, right ankle jerk 2+ Plantar Reflex: Toes downgoing to plantar stimulation on the left. Toes downgoing to plantar stimulation on the right. Sensory Exam: Impaired to light touch and pinprick both in the hands and legs in the glove and stocking type. Coordination: Patient is gait is ataxic but she is able to ambulate with minimal assistance Romberg was deferred. ASSESSMENT/PLAN Diagnoses and all orders for this visit: Partial symptomatic epilepsy with complex partial seizures, intractable, without status epilepticus - brivaracetam (Briviact) 100 mg tablet tablet; Take 2 tablets (200 mg) by mouth 2 times a day. - topiramate (Topamax) 100 mg tablet; Take 1.5 tablets (150 mg) by mouth 2 times a day. 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 (Multi) Syringomyelia (Multi) Diabetic polyneuropathy associated with type 2 diabetes mellitus Gilda Leong MD 07/11/2025 1:32 PM [1] Patient Active Problem List Diagnosis Diabetes mellitus type II, non insulin dependent (Multi) Mixed conductive and sensorineural hearing loss of right ear with restricted hearing of left ear 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 (Multi) Diabetic neuropathy (Multi) Fluid level behind tympanic membrane of right ear History of thyroid nodule Hyperlipidemia LDL goal <100 Hypokalemia Multinodular goiter (nontoxic) Nausea and vomiting PCOS (polycystic ovarian syndrome) Seizure disorder (Multi) Sensorineural hearing loss (SNHL) of left ear with restricted hearing of right ear Syringomyelia (Multi) Unilateral headache Vitamin D deficiency Bradycardia Obesity Neuropathy Sinus node dysfunction (Multi) Syncope and collapse Vitamin B12 deficiency Current every day smoker Other emphysema (Multi) Abnormal loss of weight Acid reflux Anxiety Aortoiliac occlusive disease (Multi) Atherosclerosis of [place] artery of both lower extremities with intermittent claudication Harjinder's gland hyperplasia of duodenum Chronic midline low back pain with bilateral sciatica Constipation, unspecified Cramps, extremity Depression Disturbance of skin sensation Drug abuse DUB (dysfunctional uterine bleeding) Epigastric pain Genital HSV H/O ETOH abuse Irregular menses ITB syndrome Melena Menorrhagia АННА on CPAP Sleep apnea Rectal bleed Thyroid nodule Tubular adenoma of colon HTN (hypertension), benign Diabetes mellitus (Multi) Diabetes (Multi) Hypercholesterolemia Asymmetric SNHL (sensorineural hearing loss) Morbid obesity (Multi) Chronic obstructive pulmonary disease (Multi) COPD with asthma (Multi) Epilepsy Seizure (Multi) Headache disorder BMI 38.0-38.9,adult Wide-complex tachycardia Palpitations Night sweats Chest pain Shortness of breath Status post placement of implantable loop recorder NSTEMI (non-ST elevated myocardial infarction) (Multi) Carotid bruit Bipolar 2 disorder, major depressive episode (Multi) NSVT (nonsustained ventricular tachycardia) (Multi) Sick sinus syndrome (Multi) Dizziness Cyst of pituitary gland (Multi) Liver failure (Multi) Benign essential hypertension 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) Coronary artery disease involving [place] coronary artery of [place] heart Cardiac pacemaker in situ Right subclavian artery occlusion Carpal tunnel syndrome, bilateral [2] Past Medical History: Diagnosis Date Arrhythmia Asthma Current smoker Diabetes mellitus (Multi) Disease of thyroid gland History of Chiari malformation 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 Hyperlipidemia Hypertension OCD (obsessive compulsive disorder) Other disorders of lung Lung trouble Personal history of other diseases of the digestive system History of gastroesophageal reflux (GERD) Personal history of other diseases of the musculoskeletal system and connective tissue History of arthritis Personal history of other diseases of the nervous system and sense organs History of sleep apnea Personal history of other diseases of the respiratory system History of chronic obstructive lung disease Personal history of other diseases of the respiratory system History of bronchitis Personal history of other diseases of the respiratory system History of asthma Personal history of other endocrine, nutritional and metabolic disease History of diabetes mellitus Personal history of other endocrine, nutritional and metabolic disease History of thyroid disorder Personal history of other mental and behavioral disorders History of depression Personal history of other mental and behavioral disorders History of mental disorder Personal history of other specified conditions History of snoring [3] Past Surgical History: Procedure Laterality Date BRAIN SURGERY CARDIAC ELECTROPHYSIOLOGY PROCEDURE Left 12/10/2023 Procedure: Loop Insertion; Surgeon: Geovany Ventura MD; Location: [facility]; Service: Electrophysiology; Laterality: Left; CARDIAC ELECTROPHYSIOLOGY PROCEDURE Left 05/02/2024 Procedure: Loop Recorder Explant; Surgeon: Geovany Ventura MD; Location: [facility]; Service: Electrophysiology; Laterality: Left; CARDIAC ELECTROPHYSIOLOGY PROCEDURE Left 05/02/2024 Procedure: PPM IMPLANT DUAL; Surgeon: Geovany Ventura MD; Location: [facility]; Service: Electrophysiology; Laterality: Left; GALLBLADDER SURGERY 10/14/2017 Gallbladder Surgery TONSILLECTOMY 10/14/2017 Tonsillectomy With Adenoidectomy documented in this encounter [facility] Work Phone: 07-06-2025 Note ED Patient Education Note Infectious Disease Cellulitis, Adult Cellulitis is a skin infection. The infected area is usually warm, red, swollen, and tender. It most commonly occurs on the lower body, such as the legs, feet, and toes, but this condition can occur on any part of the body. The infection can travel to the muscles, blood, and underlying tissue and become life-threatening without treatment. It is important to get medical treatment right away for this condition. What are the causes? Cellulitis is caused by bacteria. The bacteria enter through a break in the skin, such as a cut, burn, insect or animal bite, open sore, or crack. What increases the risk? This condition is more likely to occur in people who: ??? Have a weak body's defense system (immune system). ??? Are older than 60 years old. ??? Have diabetes. ??? Have a type of long-term (chronic) liver disease (cirrhosis) or kidney disease. ??? Are obese. ??? Have a skin condition such as: ? An itchy rash, such as eczema or psoriasis. ? A fungal rash on the feet or in skinfolds. ? Blistering rashes, such as shingles or chickenpox. ? Slow movement of blood in the veins (venous stasis). ? Fluid buildup below the skin (edema). ??? Have open wounds on the skin, such as cuts, puncture wounds, rubi, bites, scrapes, tattoos, piercings, or wounds from surgery. ??? Have had radiation therapy. ??? Use IV drugs. What are the signs or symptoms? Symptoms of this condition include: ??? Skin that looks red, purple, or slightly darker than your usual skin color. ??? Streaks or spots on the skin. ??? Swollen area of the skin. ??? Tenderness or pain when an area of the skin is touched. ??? Warm skin. ??? Fever or chills. ??? Blisters. ??? Tiredness (fatigue). How is this diagnosed? This condition is diagnosed based on a medical history and physical exam. You may also have tests, including: ??? Blood tests. ??? Imaging tests. ??? Tests on a sample of fluid taken from the wound (wound culture). How is this treated? Treatment for this condition may include: ??? Medicines. These may include antibiotics or medicines to treat allergies (antihistamines). ??? Rest. ??? Applying cold or warm wet cloths (compresses) to the skin. ??? If the condition is severe, you may need to stay in the hospital and get antibiotics through an IV. The infection usually starts to get better within 1?2 days of treatment. Follow these instructions at home: Medicines ??? Take [id number] and prescription medicines only as told by your health care provider. ??? If you were prescribed antibiotics, take them as told by your provider. Do not stop using the antibiotic even if you start to feel better. General instructions ??? Drink enough fluid to keep your pee (urine) pale yellow. ??? Do not touch or rub the infected area. ??? Raise (elevate) the infected area above the level of your heart while you are sitting or lying down. ??? Return to your normal activities as told by your provider. Ask your provider what activities are safe for you. ??? Apply warm or cold compresses to the affected area as told by your provider. ??? Keep all follow-up visits. Your provider will need to make sure that a more serious infection is not developing. Contact a health care provider if: ??? You have a fever. ??? Your symptoms do not improve within 1?2 days of starting treatment or you develop new symptoms. ??? Your bone or joint underneath the infected area becomes painful after the skin has healed. ??? Your infection returns in the same area or another area. Signs of this may include: ? You notice a swollen bump in the infected area. ? Your red area gets larger, turns dark in color, or becomes more painful. ? Drainage increases. ? Pus or a bad smell develops in your infected area. ? You have more pain. ??? You feel ill and have muscle aches and weakness. ??? You develop vomiting or diarrhea that will not go away. Get help right away if: ??? You notice red streaks coming from the infected area. ??? You notice the skin turns purple or black and falls off. This symptom may be an emergency. Get help right away. Call 911. ??? Do not wait to see if the symptom will go away. ??? Do not drive yourself to the hospital. This information is not intended to replace advice given to you by your health care provider. Make sure you discuss any questions you have with your health care provider. Document Revised: 06/22/2023 Document Reviewed: 06/22/2023 [employer] Patient Education ? 2023 [employer]. [facility] 06-04-2025 History of Present illness Narrative Images from the original note were not included. Referred by Ramiro Crane * Chief complaint: Chief Complaint Patient presents with New Patient Visit Patient is present to establish care . Patient was referred by for Right subclavian artery occlusion and PAD. History of Present Illness Hien Lam is a 49 y.o. year old female patient with history of hypertension, hyperlipidemia, diabetes, smoking, sinus node dysfunction status post pacemaker who is presenting for evaluation of peripheral artery disease. Patient has a history of PAD with known aortoiliac occlusion, previously followed at [facility]. Previously was asymptomatic but now reporting claudication symptoms. Denies rest pain or foot wounds. Reports she is limited in her ambulation, very limited in her regular activities due to claudication. States she is able to walk about 100 feet before limiting leg discomfort. Social History[1] Outpatient Medications: Current Outpatient Medications Medication Instructions albuterol (Ventolin HFA) 90 mcg/actuation inhaler 2 puffs, Every 6 hours PRN aspirin 81 mg, Daily atorvastatin (LIPITOR) 80 mg, oral, Nightly blood sugar diagnostic ([employer] test strips) strip Test blood sugars 4 times a day as directed brivaracetam (BRIVIACT) 200 mg, oral, 2 times daily cholecalciferol (VITAMIN D-3) 2,000 Units, Daily clotrimazole (Lotrimin) 1 % cream 1 Application, As needed diclofenac sodium (Voltaren) 1 % gel gel APPLY 4 INCHES OF MEDICATION TO EACH KNEE EVERY 4 HOURS NEEDED diphenhydrAMINE (BENADryl) 50 mg tablet Take 1 tablet the morning of the CTA ezetimibe (ZETIA) 10 mg, oral, Daily fenofibrate (TRICOR) 145 mg, Daily gabapentin (Neurontin) 600 mg tablet 2 tablets, 3 times daily (0900,1400,1900) ibuprofen 800 mg, oral, Every 8 hours PRN lamoTRIgine (LAMICTAL) 200 mg, Daily lancets ([employer] Delica Plus Lancet) 30 gauge misc Check BG Lantus Solostar U-100 Insulin 100 unit/mL (3 mL) pen INJECT 20 UNITS UNDER THE SKIN EVERY DAY AT BEDTIME lubiprostone (AMITIZA) 24 mcg, 2 times daily PRN metoprolol tartrate (LOPRESSOR) 25 mg, oral, 2 times daily montelukast (SINGULAIR) 10 mg, Nightly nitroglycerin (NITROSTAT) 0.4 mg, sublingual, Every 5 min PRN, May repeat dose every 5 minutes for up to 3 doses total. ondansetron (ZOFRAN) 8 mg, Every 8 hours PRN pantoprazole (ProtoNix) 40 mg EC tablet 1 tablet, 2 times daily predniSONE (Deltasone) 20 mg tablet Take 3 tablets the pm prior to CTA and 3 tablets the morning of the CTA sucralfate (CARAFATE) 1 g, 4 times daily before meals and nightly topiramate (TOPAMAX) 100 mg, oral, 2 times daily Trulicity 3 mg, subcutaneous, Weekly umeclidinium-vilanteroL (Anoro Ellipta) 62.5-25 mcg/actuation blister with device 1 puff, Daily valACYclovir (VALTREX) 500 mg, Daily Vitals: Vitals: 06/04/25 0823 BP: 110/60 Pulse: 67 Physical Exam: General: NAD, well-appearing HEENT: moist mucous membranes, no jaundice Neck: No JVD, no carotid bruit Lungs: CTA rachel, no wheezing or rales Cardiac: RRR, no murmurs Abdomen: soft, non-tender, non-distended Extremities: 2+ radial pulses, Skin: warm, dry, no wound Neurologic: AAOx3, no focal deficits Reviewed Study(s): Carotid Duplex 04/27/25: Diffuse atheromatous plaque, with less than 50% stenosis bilaterally by ICA/CCA ratio. Echo 05/02/24: 1. The left ventricular systolic function is normal, with a visually estimated ejection fraction of 55-60%. 2. There is normal right ventricular global systolic function. 3. There is no evidence of mitral valve stenosis. 4. No evidence of mitral valve regurgitation. 5. Trace tricuspid regurgitation is visualized. 6. Aortic valve stenosis is not present. 7. The main pulmonary artery is normal in size, and position, with normal bifurcation into the left and right pulmonary arteries. CTA Abd/Pelvis 01/13/24 ([facility]) Occlusion of the abdominal aorta inferior to the origin of the inferior mesenteric artery. The occlusion extends into both common iliac arteries. There is reconstitution filling of both external iliac arteries. Findings are unchanged on direct comparison to the prior study Assessment/Plan Diagnoses and all orders for this visit: Right subclavian artery occlusion - ECG 12 lead (Clinic Performed) Hyperlipidemia LDL goal <100 HTN (hypertension), benign Aortoiliac occlusive disease (Multi) Atherosclerosis of [place] artery of both lower extremities with intermittent claudication BMI 38.0-38.9,adult Drug abuse H/O ETOH abuse Current every day smoker Other orders - Referral to Vascular Medicine #AortoIliac Occlusive Disease #Right Subclavian Artery Stenosis #Hyperlipidemia #Intermittent Claudication #Tobacco Abuse -general cardiology has been extensively working on precert for updated CTA Abd/Pelvis. Will await those images to review. -Discussed smoking cessation in detail, patient has tried Chantix and Nicotine Patches and Wellbutrin in past with out success. Discussed referral to Smoking Cessation program- agreeable to consider -Will start Wellbutrin 150mg twice daily, goal 12 week therapy for smoking cessation -Will update ROXY RTC 3 months I, Jj Allen RN am scribing for, and in the presence of Dr. Kaley De La Rosa MD [facility] . I, Kaley De La Rosa MD [facility] , personally performed the services described in the documentation as scribed by Jj Allen RN in my presence, and confirm it is both accurate and complete. Kaley De La Rosa MD [facility] Interventional Cardiology Endovascular Interventions [email or web address] Disclaimer: This note was dictated by speech recognition, and every effort has been made to prevent any error in special events manager, however minor errors may be present [1] Social History Tobacco Use Smoking status: Every Day Current packs/day: 0.50 Types: Cigarettes, Cigars Smokeless tobacco: Never Vaping Use Vaping status: Never Used Substance Use Topics Alcohol use: Not Currently Comment: quit 2007 Drug use: Yes Types: Marijuana Comment: 3 times per week documented in this encounter [facility] Work Phone: 06-04-2025 Instructions Jj Allen RN - 06/04/2025 8:15 AM EDT Patient to follow up in [address] Kaley De La Rosa MD [facility] Encouraged to quit smoking- heart healthy education given today. Please START Wellbutrin 150mg once daily for first 3 days, then increase to twice daily thereafter. Total therapy for 12 weeks to help with smoking cessation Will arrange Vascular PVR in near future as well Office will refer you to our Smoking Cessation Program if you are interested. No other changes today. Continue same medications and treatments. Patient educated on proper medication use. Patient educated on risk factor modification. Please bring any lab results from other providers / physicians to your next appointment. Please bring all medicines, vitamins, and herbal supplements with you when you come to the office. Prescriptions will not be filled unless you are compliant with your follow up appointments or have a follow up appointment scheduled as per instruction of your physician. Refills should be requested at the time of your visit. IJj RN am scribing for and in the presence of Dr. Kaley De La Rosa MD [facility] documented in this encounter [facility] Work Phone: 05-31-2025 History of Present illness Narrative Associated Order(s): L Inj/Asp: bilateral knee Post-Procedure Diagnose(s): Chronic pain of both knees L Inj/Asp: bilateral knee on 05/31/2025 4:26 PM Indications: pain Details: 22 G needle Medications (Right): 6 mg betamethasone acetate-betamethasone sodium phosphate 6 (3-3) MG/ML Medications (Left): 6 mg betamethasone acetate-betamethasone sodium phosphate 6 (3-3) MG/ML Consent was given by the patient. Images from the original note were not included. Hien Lam is a 49 y.o. female presents with chief complaint of bilateral knee pain and stiffness. HPI: Agustin is here of which she has her bilateral knee osteoarthritis. She did have some Visco supplementation over in the [facility]. She states that was helpful. She is requesting cortisone today. She does have an A1C of 9 and has recently had some adjustment with medication. She does have sliding scale breakthrough coverage for elevations. She did get a pacemaker in her heart. She does present with her spouse. SUBJECTIVE: MEDICATIONS: Current Outpatient Medications Medication Instructions Anoro Ellipta 62.5-25 MCG/ACT aerosol powder aspirin 81 mg, Daily RT atorvastatin (Lipitor) 40 MG tablet Every 24 hours Banophen 25 MG capsule TAKE 2 CAPSULES THE MORNING OF THE CTA Briviact 200 mg, 2 times daily buPROPion SR (WELLBUTRIN SR) 150 mg, 2 times daily cholecalciferol (VITAMIN D-3) 50,000 Units, 2 times weekly clotrimazole (Lotrimin) 1 % cream 1 Application, 2 times daily clotrimazole-betamethasone (Lotrisone) cream 2 times daily Continuous Blood Gluc Sensor (FreeStyle [place]olia 2 Sensor) [facility] cyanocobalamin (Vitamin B-12) 1000 MCG/ML injection cyclobenzaprine (FLEXERIL) 10 mg, 3 times daily PRN dexAMETHasone (DECADRON) 1 mg, Oral, Once diclofenac sodium 1 % gel ergocalciferol (Vitamin D2) 1.25 MG (54615 UT) capsule ezetimibe (ZETIA) 10 mg, Daily fenofibrate (TRICOR) 145 mg, Daily fluconazole (Diflucan) 100 MG tablet Fycompa 4 mg, Nightly gabapentin (Neurontin) 600 MG tablet Every 8 hours insulin aspart (NOVOLOG) 30 Units, 3 times daily with meals insulin lispro (HUMALOG KWIKPEN) 10 Units, Subcutaneous, 3 times daily with meals lamoTRIgine (LaMICtal) 25 MG tablet TAKE 1 TAB DAILY X 2 WEEKS, THEN 2 TABS DAILY X 2 WEEKS Lancets ([employer] Delica Plus [id number]) [facility] TEST BLOOD SUGAR Lantus SoloStar 20 Units, Subcutaneous, Nightly lisinopril 5 MG tablet Every 24 hours meclizine (ANTIVERT) 25 mg, Every 6 hours PRN metoprolol tartrate (LOPRESSOR) 25 mg, 2 times daily montelukast (Singulair) 10 MG tablet montelukast (Singulair) 4 MG chewable tablet mupirocin (Bactroban) 2 % ointment Apply topically naloxone (Narcan) 4 mg/0.1 mL nasal spray naproxen (NAPROSYN) 500 mg, 2 times daily PRN nitroglycerin (Nitrostat) 0.[address] 1 TABLET UNDER TONGUE EVERY 5 MINS, UP TO 3 DOSES NEEDED FOR CHEST PAIN ondansetron (Zofran) 4 MG tablet Every 8 hours oxyCODONE-acetaminophen (Percocet) 5-325 MG tablet TAKE 1 - 2 TABS ORALLY EVERY 6 HOURS NEEDED FOR PAIN FOR 3 DAYS pantoprazole (PROTONIX) 40 mg, 2 times daily Pantoprazole Sodium (PROTONIX PO) spironolactone (ALDACTONE) 50 mg, 2 times daily sucralfate (Carafate) 1 GM/10ML suspension TAKE 2 TEASPOONFUL BY MOUTH 4 TIMES A DAY topiramate (TOPAMAX) 100 mg, Daily traMADol (ULTRAM) 50 mg, Every 6 hours PRN Trulicity 1.5 MG/0.5ML solution pen-injector valACYclovir (Valtrex) 500 MG tablet Ventolin HFA 108 (90 Base) MCG/ACT inhaler ALLERGIES: Allergies Allergen Reactions Iodinated Contrast Media Anaphylaxis Other Hives Shellfish-Derived Products Anaphylaxis and Rash Dimenhydrinate Other Reaction(s): Hives Duloxetine Swelling Duloxetine Hcl Swelling Fluticasone-Salmeterol Hives Meclizine Swelling Metformin Other Reaction(s): rash Pregabalin Other Reaction(s): Other (See Comments), tongue swells, Unknown Caused suicidal ideations Causes depression and suicidal thoughts Insulin Aspart (Human Analog) (Yeast) Rash SURGICAL HISTORY: Past Surgical History: Procedure Laterality Date APPENDECTOMY CHOLECYSTECTOMY CT ANGIOGRAM ABDOMEN PELVIS 01/13/2024 CT ANGIOGRAM ABDOMEN PELVIS 01/13/2024 CT ANGIOGRAM HEART CORONARY 01/14/2024 CT ANGIOGRAM HEART CORONARY 01/14/2024 FAMILY HISTORY: Family History Problem Relation Name Age of Onset Hypertension Mother SOCIAL HISTORY: Social History Tobacco Use Smoking status: Some Days Current packs/day: 0.25 Types: Cigars, Cigarettes Smokeless tobacco: Never Vaping Use Vaping status: Some Days Substance Use Topics Alcohol use: Never Drug use: Never Depression: Not at risk (04/04/2025) Received from [facility] PHQ-2 Patient Health Questionnaire-2 Score: 0 REVIEW OF SYMPTOMS: The review of systems, history and current medications list are all reviewed today. OBJECTIVE: Visit Vitals Ht 5' 4.5 Wt 224 lb BMI 37.86 kg/m Smoking Status Some Days BSA 2.15 m Physical Exam On physical exam, she is alert and oriented. Vital signs are stable. The bilateral knees have hypertrophic changes. There is mild varus positioning. Crepitance is present. There is tenderness noted of the medial and patellofemoral joint. Collateral ligaments are intact. Alexa and drawer are stable. Gait is stiff and antalgic. X-rays, permanently saved to the patient's record, are reviewed show moderate to severe degenerative changes that are grade III to IV in nature. This is AP, lateral and sunrise views weight bearing films. There is no fracture, dislocation, tumor or infection seen. ASSESSMENT AND PLAN: Assessment/Plan Bilateral knee advanced osteoarthritis; antalgic gait; multiple medical problems; diabetes A1C of 9. The nature of the findings were discussed at length. Obviously for total knee replacement, she would have to have preoperative clearance from cardiology. She does have a pacemaker. We discussed her A1C has been to under 7.5. She can go back to the [facility] for Visco supplementation every six months. With consent from the patient today, 1 cc of cortisone (3 mg of Betamethasone sodium phosphate with 3 mg of Betamethasone acetate) and 1 cc of 1% plain Lidocaine was injected from a seated sterile approach. The patient tolerated both injections well. Once again, monitoring her sugar for the next three to five days due to transient increase, keeping a close watchful eye. Follow up at this point will be on a p.r.n. basis. She is discharged in stable condition. Numerous questions were answered. The patient was seen and examined. From the time of check in, nurse triage, vital signs, x-ray, x-ray interpretation, review of systems, comprehensive history and physical exam as well as setting up treatment plan and further management took 35 minutes. Cosigned by Charissa Seth DO at 06/05/2025 7:55 AM EDT documented in this encounter [facility] 05-30-2025 History of Present illness Narrative Hien Lam is a 49 y.o. female No ref. provider found presents with chief complaint of Diabetes and Follow-up HPI: IM : 05/2025 Follow-up visit 05/30/2025 for kidney function within normal limits, total cholesterol 155, triglycerides 625, prolactin 7.58, FSH 15.2, vitamin-D 32, acth 14, cortisol 11.3 she mentioned she took the tablet of dexamethasone the night before? , currently on Trulicity 3 mg once weekly, sliding scale only, does not use fixed dose. 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 SUBJECTIVE: MEDICATIONS: Current Outpatient Medications Medication Instructions Anoro Ellipta 62.5-25 MCG/ACT aerosol powder aspirin 81 mg, Daily RT atorvastatin (Lipitor) 40 MG tablet Every 24 hours Briviact 200 mg, 2 times daily buPROPion SR (WELLBUTRIN SR) 150 mg, 2 times daily cholecalciferol (VITAMIN D-3) 50,000 Units, 2 times weekly clotrimazole (Lotrimin) 1 % cream 1 Application, 2 times daily clotrimazole-betamethasone (Lotrisone) cream 2 times daily Continuous Blood Gluc Sensor (FreeStyle Magnolia 2 Sensor) misc cyanocobalamin (Vitamin B-12) 1000 MCG/ML injection cyclobenzaprine (FLEXERIL) 10 mg, 3 times daily PRN dexAMETHasone (DECADRON) 1 mg, Oral, Once diclofenac sodium 1 % gel ergocalciferol (Vitamin D2) 1.25 MG (48507 UT) capsule ezetimibe (ZETIA) 10 mg, Daily fenofibrate (TRICOR) 145 mg, Daily fluconazole (Diflucan) 100 MG tablet Fycompa 4 mg, Nightly gabapentin (Neurontin) 600 MG tablet Every 8 hours insulin aspart (NOVOLOG) 30 Units, 3 times daily with meals insulin lispro (HUMALOG KWIKPEN) 10 Units, Subcutaneous, 3 times daily with meals lamoTRIgine (LaMICtal) 25 MG tablet TAKE 1 TAB DAILY X 2 WEEKS, THEN 2 TABS DAILY X 2 WEEKS Lancets (OneTouch Delica Plus [id number]) misc TEST BLOOD SUGAR Lantus SoloStar 20 Units, Subcutaneous, Nightly lisinopril 5 MG tablet Every 24 hours meclizine (ANTIVERT) 25 mg, Every 6 hours PRN montelukast (Singulair) 10 MG tablet montelukast (Singulair) 4 MG chewable tablet mupirocin (Bactroban) 2 % ointment Apply topically naloxone (Narcan) 4 mg/0.1 mL nasal spray naproxen (NAPROSYN) 500 mg, 2 times daily PRN nitroglycerin (Nitrostat) 0.[address] 1 TABLET UNDER TONGUE EVERY 5 MINS, UP TO 3 DOSES NEEDED FOR CHEST PAIN ondansetron (Zofran) 4 MG tablet Every 8 hours oxyCODONE-acetaminophen (Percocet) 5-325 MG tablet TAKE 1 - 2 TABS ORALLY EVERY 6 HOURS NEEDED FOR PAIN FOR 3 DAYS pantoprazole (PROTONIX) 40 mg, 2 times daily Pantoprazole Sodium (PROTONIX PO) spironolactone (ALDACTONE) 50 mg, 2 times daily sucralfate (Carafate) 1 GM/10ML suspension TAKE 2 TEASPOONFUL BY MOUTH 4 TIMES A DAY topiramate (TOPAMAX) 100 mg, Daily traMADol (ULTRAM) 50 mg, Every 6 hours PRN Trulicity 1.5 MG/0.5ML solution pen-injector valACYclovir (Valtrex) 500 MG tablet Ventolin HFA 108 (90 Base) MCG/ACT inhaler ALLERGIES: Allergies Allergen Reactions Iodinated Contrast Media Anaphylaxis Other Hives Shellfish-Derived Products Anaphylaxis and Rash Dimenhydrinate Other Reaction(s): Hives Duloxetine Swelling Duloxetine Hcl Swelling Fluticasone-Salmeterol Hives Meclizine Swelling Metformin Other Reaction(s): rash Pregabalin Other Reaction(s): Other (See Comments), tongue swells, Unknown Caused suicidal ideations Causes depression and suicidal thoughts Insulin Aspart (Human Analog) (Yeast) Rash Past Medical History: Diagnosis Date Arnold-Chiari deformity (HCC) 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) Diabetic neuropathy (HCC) Herpes simplex History of MRSA infection Hypercortisolism (HCC) Hypertension IBS (irritable bowel syndrome) Multinodular goiter PCOS (polycystic ovarian syndrome) Seizure disorder (HCC) Sleep apnea SNHL (sensorineural hearing loss) Type 2 diabetes mellitus (HCC) Vitamin D deficiency Past Surgical History: Procedure Laterality Date APPENDECTOMY CHOLECYSTECTOMY CT ANGIOGRAM ABDOMEN PELVIS 01/13/2024 CT ANGIOGRAM ABDOMEN PELVIS 01/13/2024 CT ANGIOGRAM HEART CORONARY 01/14/2024 CT ANGIOGRAM HEART CORONARY 01/14/2024 REVIEW OF SYMPTOMS: 14 POINT OF SYSTEM REVIEWED AND NEGATIVE OBJECTIVE: Constitutional: Afebrile @ home; no weakness or night sweats SKIN: No change in skin color; no itching, rash or lesions; no hair loss; HEENT: No HAs or injury; no dizziness; No difficulty with vision; no eye pain, discharge or lesions; no hearing loss or difficulty; no nasal discharge, NECK: No pain, limitation of motion, lumps or swollen glands RESP: No cough, wheezing or difficulty breathing. No CP with breathing; CARDIO: No CP , SOB or fatigue, No edema, palpitations or dyspnea with exertion GI: No N/V/D or abd. pain; good appetite with no recent change. No heart burn, liver or gallbladder disease; no rectal bleeding or pain : No urinary pain , frequency or odor. MUSCULOSKELETAL: No muscle pain or cramps; no extremity weakness.No joint pain, stiffness, swelling or limitation of movement NEUROLOGY: No H/O seizures, stroke or fainting. No weakness, tremors. 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 Vitamin D deficiency Vitamin-D 32 within normal limits. Hyperlipemia, mixed Triglycerides 625 she is on Lipitor and Zetia, we will try to see her medication in the office and adjust next visit. Encounter for dietary consultation Diet and exercise reviewed with the patient Class 2 severe obesity due to excess calories with serious comorbidity and body mass index (BMI) of 39.0 to 39.9 in adult ([facility]) Hypercortisolism (HCC) 1 mg Dexamethasone abnormal I will repeat the test, if still still abnormal then I will do 24 hour urine cortisol. Used to be on korlym for almost 1 year, off since 2021. History of brain surgery Due to Arnold Chiari malformation Follow up in about 6 weeks (around 07/11/2025). documented in this encounter [facility] 05-15-2025 History of Present illness Narrative Associated Order(s): Point of Care Ultrasound Pre-Procedure Diagnose(s): Carpal tunnel syndrome, left; Carpal tunnel syndrome on right Post-Procedure Diagnose(s): Carpal tunnel syndrome, left; Carpal tunnel syndrome on right Performed by: Roger Jones MD Authorized by: Roger Jones MD NEUROMUSCULAR ULTRASOUND OF THE RIGHT AND LEFT UPPER EXTREMITY INDICATION: Clinical Information: History of bilateral carpal tunnel release presents with bilateral upper extremities numbness/paresthesia/pain involving the ring fingers, and little fingers bilaterally that has been persistent in the last 3 months. Also reports intermittent paresthesia involving the lateral 3 digits bilaterally, and radicular type pain involving the bilateral neck radiating distally to the elbow level. Evaluate for bilateral median, and ulnar neuropathies. Neuromuscular ultrasound to be performed: (a) to evaluate the echotexture and size of the right and left median nerves in the limb with attention to the carpal tunnel; (b) to assess for any identifiable structural source of median nerve compression; (c) to assess adjacent structures around the median nerve for abnormalities. (d) to assess the wrist joints for abnormalities (e) to evaluate the echotexture and size of the right and ulnar nerves throughout its course in the limb; (f) to assess for any identifiable mechanical source of ulnar nerve compression; (g) to identify any dynamic source of neuropathy from nerve subluxation or dislocation; (h) to assess adjacent structures around the elbows for abnormalities HEIGHT: 5 ft 4 in WEIGHT: 221 lbs. HANDEDNESS: Right COMPARISON: None. TECHNIQUE: The bilateral median nerves and accompanying structures were studied throughout their entire anatomic course in the limb from the wrist to the axilla, including real-time cine imaging. The examination was performed using a [employer] P9 ultrasound machine with a 15-6 MHz matrix linear transducer. Both axial and longitudinal views were obtained. The patient was examined supine with the arm extended and supinated. Cross sectional area (CSA) was measured within the epineurium, using the trace method. At locations where repeat measurements were taken, the mean value is reported below. Transverse and longitudinal images were obtained. The right and left ulnar nerves and accompanying structures were studied throughout their entire anatomic course in the limb from the wrist to the axilla, including real-time cine imaging. For the ulnar nerves, the patient was placed supine with the arms externally rotated, abducted, and slightly flexed at the elbow. With the elbow extended, the transducer was placed at the level of the medial epicondyle as the patient s elbow was passively flexed to determine if either ulnar nerve subluxed or dislocated out of the groove. FINDINGS: At the right wrist at the distal wrist crease (proximal carpal tunnel), the median nerve CSA was 10.3 mm2 (NL < 10 mm2; borderline 10-13 mm2; ABN > 13 mm2). The echogenicity of the right median nerve at the wrist was normal. The mobility of the right median nerve with flexion and extension of the fingers was normal. Color Doppler of the right median nerve showed normal median nerve vascularity. No abnormal tenosynovitis of the right flexor tendons was noted. Using a longitudinal scan of the right median nerve at the wrist, a notch sign was not seen under the flexor retinaculum. A right persistent median artery was not present. A right bifid median nerve was not present. No other abnormal mass or ganglia was appreciated in the right carpal tunnel. With extension of the fingers, there was no abnormal intrusion of the right flexor digitorum sublimis. With flexion of the fingers, there was no abnormal intrusion of the right lumbrical muscles. In the mid-forearm, approximately 12 cm proximal to the distal wrist crease, the right median nerve was seen between the flexor digitorum sublimis and flexor digitorum profundus muscles. At the mid-forearm, the right median nerve CSA was 7.1 mm2. The ratio of the right median CSAs between the wrist and forearm (WFR) was 1.4 (NL < 1.5; borderline: 1.5 - 2.0). The echogenicity of the right median nerve in the forearm was normal. The right median nerve was then followed proximal into the forearm and then to the axilla. The median nerve was normal in size and echogenicity adjacent to the brachial artery. Scanning the muscles, the echogenicity was normal of the flexor digitorum sublimis, flexor digitorum profundus, flexor pollicis longus, flexor carpi radialis, and pronator teres. The echogenicity of the abductor pollicis brevis was normal. At the right wrist joint, the radial carpal joint was normal. No abnormal effusion was seen. The flexor carpi radialis tendon was normal. Both the radial and ulnar arteries were well seen and were normal. Attention was then turned to the ulnar nerve. At the wrist, the ulnar CSA was 6.5 mm2 (NL < 10 mm2). The echogenicity was normal. At the mid-forearm slightly proximal to the location where the ulnar artery from the ulnar nerve, the CSA was 8.1 mm2 (NL < 10 mm2). The echogenicity was normal. At the level of cubital tunnel, the ulnar nerve with the largest CSA was located in between the two heads of the flexor carpi ulnaris. The CSA at this location was 7.9 mm2 (NL < 10 mm2; mild ABN 10-15 mm2; moderate ABN 15-20 mm2; severely ABN > 20 mm2). The echogenicity was normal. At the level of retrocondylar groove, the ulnar nerve with the largest CSA was located between the medial epicondyle and olecranon. The CSA at this location was 5.6 mm2 (NL < 10 mm2; mild ABN 10-15 mm2; moderate ABN 15-20 mm2; severely ABN > 20 mm2). The echogenicity was normal. No abnormal mass was appreciated affecting the ulnar nerve in the elbow. An anconeus epitrochlearis muscle was not appreciated at the elbow. At the mid-arm under the fascia of the medial triceps, the CSA was 10.3 mm2 (NL < 10 mm2). The echogenicity was normal. The ulnar nerve was the followed to the axilla and was normal. The ratio of the largest CSAs between the elbow and mid-forearm was 0.7 (NL < 1.5). The ratio of the largest CSAs between the elbow and mid-arm was 0.5 (NL < 1.5). Scanning the right ulnar muscles, the echogenicity was normal in the deep head of the flexor pollicis brevis, medial flexor digitorum profundus and flexor carpi ulnaris. At the left wrist at the distal wrist crease (proximal carpal tunnel), the median nerve CSA was 14.7 mm2 (NL < 10 mm2; borderline 10-13 mm2; ABN > 13 mm2). The flattening ratio of the left median nerve (ratio of width / height of median nerve in the short- axis view) was 4.7 (NL < 3). The echogenicity of the left median nerve at the wrist was reduced. The mobility of the left median nerve with flexion and extension of the fingers was normal. Color Doppler of the left median nerve showed normal median nerve vascularity. No abnormal tenosynovitis of the left flexor tendons was noted]. Using a longitudinal scan of the left median nerve at the wrist, a notch sign was not seen under the flexor retinaculum. A left persistent median artery was not present. A left bifid median nerve was not present. No other abnormal mass or ganglia was appreciated in the left carpal tunnel. With extension of the fingers, there was no abnormal intrusion of the left flexor digitorum sublimis. With flexion of the fingers, there was no abnormal intrusion of the left lumbrical muscles. In the mid-forearm, approximately 12 cm proximal to the distal wrist crease, the left median nerve was seen between the flexor digitorum sublimis and flexor digitorum profundus muscles. At the mid-forearm, the left median nerve CSA was 7.1 mm2. The ratio of the left median CSAs between the wrist and forearm (WFR) was 2.1 (NL < 1.5; borderline: 1.5 - 2.0). The echogenicity of the left median nerve in the forearm was normal. The left median nerve was then followed proximal into the forearm and then to the axilla. The median nerve was normal in size and echogenicity adjacent to the brachial artery. Scanning the muscles, the echogenicity was normal of the flexor digitorum sublimis, flexor digitorum profundus, flexor pollicis longus, flexor carpi radialis, and pronator teres. The echogenicity of the abductor pollicis brevis was normal. At the left wrist joint, the radial carpal joint was normal. No abnormal effusion was seen. The flexor carpi radialis tendon was normal. Both the radial and ulnar arteries were well seen and were normal. Attention was then turned to the ulnar nerve. At the wrist, the ulnar CSA was 7.2 mm2 (NL < 10 mm2). The echogenicity was normal. At the mid-forearm slightly proximal to the location where the ulnar artery from the ulnar nerve, the CSA was 7.8 mm2 (NL < 10 mm2). The echogenicity was normal. At the level of cubital tunnel, the ulnar nerve with the largest CSA was located in between the two heads of the flexor carpi ulnaris. The CSA at this location was 6.8 mm2 (NL < 10 mm2; mild ABN 10-15 mm2; moderate ABN 15-20 mm2; severely ABN > 20 mm2). The echogenicity was normal. At the level of retrocondylar groove, the ulnar nerve with the largest CSA was located between the medial epicondyle and olecranon. The CSA at this location was 6.2 mm2 (NL < 10 mm2; mild ABN 10-15 mm2; moderate ABN 15-20 mm2; severely ABN > 20 mm2). The echogenicity was normal. No abnormal mass was appreciated affecting the ulnar nerve in the elbow. An anconeus epitrochlearis muscle was not appreciated at the elbow. At the mid-arm under the fascia of the medial triceps, the CSA was 7.8 mm2 (NL < 10 mm2). The echogenicity was normal. The ulnar nerve was the followed to the axilla and was normal. The ratio of the largest CSAs between the elbow and mid-forearm was 0.9 (NL < 1.5). The ratio of the largest CSAs between the elbow and mid-arm was 0.9 (NL < 1.5). Scanning the left ulnar muscles, the echogenicity was normal in the deep head of the flexor pollicis brevis, medial flexor digitorum profundus and flexor carpi ulnaris. IMPRESSION: This is an essentially normal neuromuscular ultrasound examination of the right and left upper extremities. There was no ultrasound evidence of median neuropathy at the right wrist by absolute criteria. In addition, the right median nerve was followed through its anatomic course in the limb from wrist to axilla and was normal. There was no ultrasound evidence of ulnar neuropathy at the right elbow by absolute criteria. The right ulnar nerve was followed through its anatomic course in the limb from wrist to axilla and was normal. The other visualized osseous, ligamentous, joint and tendinous structures on the right appeared normal. There was ultrasound evidence of a mild median neuropathy at the left wrist. Please note, proper interpretation of this finding is more difficult since the patient has undergone carpal tunnel release surgery. Following carpal tunnel release surgery, the size and echogenicity of the median nerve improves, but may remain abnormal. There is no study prior to the carpal tunnel release surgery for comparison. The ultrasound finding reported to be most specific of ongoing or recurrent compression is that of a notch sign . There was no evidence of a notch sign to suggest recurrent nerve impingement. In addition, the left median nerve was followed through its anatomic course in the limb from wrist to axilla and was normal above the wrist. There was no ultrasound evidence of ulnar neuropathy at the left elbow. The left ulnar nerve was followed through its anatomic course in the limb from wrist to axilla and was normal. The other visualized osseous, ligamentous, joint and tendinous structures on the left appeared normal. documented in this encounter [facility] Work Phone: 05-03-2025 Nurse Note Pt here for MRI, pt has a pacemaker, set to sure scan On DOO 100, MRI completed, pt tolerated scan well, surescan turned off. [facility] 05-03-2025 Nurse Note Pt here for MRI, pt has a pacemaker, set to sure scan On DOO 100, MRI completed, pt tolerated scan well, surescan turned off. documented in this encounter [facility] Work Phone: 04-04-2025 History of Present illness Narrative 49 y.o. female and on 12-04-2021 had a Chiari decompression. Presents with intermittent left right arm pain starting in the face upper neck to the arm to forearm. She notes the pain is changes laterally and never bilateral pain. Pt presented to [facility] ED with referral to Ortho Dr. Temple at [facility] with referral to Neurosurgery. Pt notes some decreased range of motion. Pain is affecting her sleep. 49 yo F who previously underwent Chiari decompression presents because of pain in her neck running down her arms. The pain is mostly in the right arm but sometimes migrates to the left. She states is goes all the way into her hands and she gets tinging in her thumb, index finger, and middle finger. She has a history of carpal tunnel release. On exam, she is alert and interactive. Her incision is well-healed. Strength is full. There is no evidence of hypertonia or hyperreflexia. A Phalen sign is present in both wrists. Xrays of the cervical spine that I personally reviewed demonstrate mild degenerative disease with normal alignment. The patient has bilateral arm pain with mild bony cervical spondylosis. I am concerned about the possibility of a peripheral compressive neuropathy. I would like to obtain bilateral upper extremity neuromuscular ultrasounds for further evaluation. documented in this encounter [facility] Work Phone: 03-28-2025 History of Present illness Narrative CARDIOLOGY OFFICE VISIT CHIEF COMPLAINT Chief Complaint Patient presents with Follow-up Follow up on coronary artery disease and chest pain Hospital Follow-up [facility] Emergency department for chest pain and bilateral arm numbness HISTORY OF PRESENT ILLNESS The patient lives in [place] and she states that she has been having to go to [facility] downtown to see vascular medicine and she would like it if we can follow it here to save her trip downtown. I told her we can do that. 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 She also has possible stenosis of her right subclavian artery. She also does have moderate carotid artery disease by previous carotid ultrasound. She is seeing neurology and they want to know if she can have an MRI. She did have permanent pacemaker put in last year by Dr. PIPER which is MRI compatible. She denies any ischemic chest discomfort. She denies dyspnea. She denies palpitations and syncope. She denies symptoms of transient ischemic neurologic attacks. Impression: Coronary Artery Disease, mild to moderate by CCTA 01/2024, no angina Permanent pacemaker for sinus node dysfunction, follows with Dr. Ventura Normal left ventricular systolic function by echocardiogram 2022 No evidence of myocardial ischemia per stress test 2022 Carotid artery disease, moderate, bilaterally by carotid ultrasound, asymptomatic Obesity History of bronchial asthma PAD /100% occlusion of abdominal aorta at level of inferior mesenteric artery History of possible right subclavian artery stenosis Seizure disorder Arnold-Chiari Syndrome Mario Syndrome Hypertension Hyperlipidemia Diabetes Mellitus, Type 2. ENDO- Dr. Auguste Bipolar/ Anxiety / Drug Abuse COPD/Asthma Obstructive Sleep Apnea on PAP therapy Current Smoker Daily History of Raynaud's Please excuse any errors in grammar or translation related to this dictation. Voice recognition software was utilized to prepare this document. Past Medical History Medical History[1] Social History Social History[2] Family History Family History[3] Allergies: RX Allergies[4] Outpatient Medications: Current Outpatient Medications Medication Instructions albuterol (Ventolin HFA) 90 mcg/actuation inhaler 2 puffs, Every 6 hours PRN aspirin 81 mg, Daily atorvastatin (LIPITOR) 80 mg, oral, Nightly blood sugar diagnostic (YongCheTouch Verio test strips) strip Test blood sugars 4 times a day as directed brivaracetam (BRIVIACT) 200 mg, oral, 2 times daily cholecalciferol (VITAMIN D-3) 2,000 Units, Daily clotrimazole (Lotrimin) 1 % cream 1 Application, As needed diclofenac sodium (Voltaren) 1 % gel gel APPLY 4 INCHES OF MEDICATION TO EACH KNEE EVERY 4 HOURS NEEDED ezetimibe (ZETIA) 10 mg, oral, Daily fenofibrate (TRICOR) 145 mg, Daily gabapentin (Neurontin) 600 mg tablet 2 tablets, 3 times daily (0900,1400,1900) ibuprofen 800 mg, oral, Every 8 hours PRN lamoTRIgine (LAMICTAL) 200 mg, Daily lancets (OneTouch Delica Plus Lancet) 30 gauge misc Check BG lubiprostone (AMITIZA) 24 mcg, 2 times daily PRN metoprolol tartrate (LOPRESSOR) 25 mg, oral, 2 times daily montelukast (SINGULAIR) 10 mg, Nightly nitroglycerin (NITROSTAT) 0.4 mg, sublingual, Every 5 min PRN, May repeat dose every 5 minutes for up to 3 doses total. ondansetron (ZOFRAN) 8 mg, Every 8 hours PRN pantoprazole (ProtoNix) 40 mg EC tablet 1 tablet, 2 times daily sucralfate (CARAFATE) 1 g, 4 times daily before meals and nightly topiramate (TOPAMAX) 100 mg, oral, 2 times daily Trulicity 3 mg, subcutaneous, Weekly umeclidinium-vilanteroL (Anoro Ellipta) 62.5-25 mcg/actuation blister with device 1 puff, Daily valACYclovir (VALTREX) 500 mg, Daily REVIEW OF SYSTEMS Review of Systems All other systems reviewed and are negative. VITALS Vitals: 03/28/25 1344 BP: 132/60 Pulse: 64 PHYSICAL EXAM Vitals and nursing note reviewed. Constitutional: Appearance: Healthy appearance. Eyes: Conjunctiva/sclera: Conjunctivae normal. Pupils: Pupils are equal, round, and reactive to light. Pulmonary: Effort: Pulmonary effort is normal. Breath sounds: Normal breath sounds. Cardiovascular: PMI at left midclavicular line. Normal rate. Regular rhythm. Murmurs: There is no murmur. No gallop. No click. No rub. Pulses: Intact distal pulses. Comments: Decreased bilateral lower extremity pulses. Edema: Peripheral edema absent. Musculoskeletal: Normal range of motion. Skin: General: Skin is warm and dry. Neurological: Mental Status: Alert and oriented to person, place and time. ASSESSMENT AND PLAN Diagnoses and all orders for this visit: Coronary artery disease involving [place] coronary artery of [place] heart, unspecified whether angina present NSVT (nonsustained ventricular tachycardia) (Multi) COPD with asthma (Multi) Atherosclerosis of [place] artery of both lower extremities with intermittent claudication Right subclavian artery occlusion Seizure disorder (Multi) 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 (Multi) HTN (hypertension), benign Hyperlipidemia LDL goal <100 Type 2 diabetes mellitus with other circulatory complication, without long-term current use of insulin Bipolar 2 disorder, major depressive episode (Multi) АННА on CPAP Current every day smoker Aortoiliac occlusive disease (Multi) Occlusion and stenosis of bilateral carotid arteries PAD (peripheral artery disease) @ASSESSMENTANDPLANTEXT@ I,Karis Samuels LPN am scribing for, and in the presence of Dr. Ramiro Bhandari. I, Dr. Ramiro Bhandari, personally performed the services described in the documentation as scribed by Karis Samuels LPN in my presence, and confirm it is both accurate and complete. Dr. Ramiro Bloom MD Thank you for allowing me to participate in the care of this patient. Please do not hesitate to contact me with any further questions or concerns. 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 Hyperlipidemia Hypertension OCD (obsessive compulsive disorder) Other disorders of lung Lung trouble Personal history of other diseases of the digestive system History of gastroesophageal reflux (GERD) Personal history of other diseases of the musculoskeletal system and connective tissue History of arthritis Personal history of other diseases of the nervous system and sense organs History of sleep apnea Personal history of other diseases of the respiratory system History of chronic obstructive lung disease Personal history of other diseases of the respiratory system History of bronchitis Personal history of other diseases of the respiratory system History of asthma Personal history of other endocrine, nutritional and metabolic disease History of diabetes mellitus Personal history of other endocrine, nutritional and metabolic disease History of thyroid disorder Personal history of other mental and behavioral disorders History of depression Personal history of other mental and behavioral disorders History of mental disorder Personal history of other specified conditions History of snoring [2] Social History Tobacco Use Smoking status: Every Day Current packs/day: 0.50 Types: Cigarettes Smokeless tobacco: Never Vaping Use Vaping status: Never Used Substance Use Topics Alcohol use: Not Currently Comment: quit 2007 Drug use: Yes Types: Marijuana Comment: 3 times per week [3] Family History Problem Relation Name Age of Onset Hypertension Mother Arthritis Mother No Known Problems Father [4] Allergies Allergen Reactions Fish Containing Products Anaphylaxis Iodinated Contrast Media Anaphylaxis Duloxetine Unknown Pregabalin Unknown documented in this encounter [facility] Work Phone: 03-28-2025 Instructions Karis Samuels LPN - 03/28/2025 1:45 PM EDT You are being scheduled for a CT angio of the chest, abdomen and pelvis and also a carotid duplex You are being referred to Dr. De La Rosa for your peripheral disease Will call patient with test results once reviewed by physician Follow up office visit in 1 year. Continue same medications/treatment. Patient educated on proper medication use. Patient educated on risk factor modification. Please bring any lab results from other providers / physicians to your next appointment. Please bring all medicines, vitamins and herbal supplements with you when you come to the office. Prescriptions will not be filled unless you are compliant with your follow up appointments or have a follow up appointment scheduled as per instruction of your physician. Refills should be requested at the time of Your visit. documented in this encounter [facility] Work Phone: 03-19-2025 History of Present illness Narrative GENERAL HISTORY AND PHYSICAL: NAME: Hien Lam : 1975 HISTORY OF PRESENT ILLNESS: Hien Lam is an 49 y.o. female is here for orthopedic evaluation neck pain which he has had for about a week now she is here with her and was seen in the emergency department [facility] but only had a CTA of her chest due to complaints of chest painy. She has extensive neurological history with Arnold Chiari syndrome and having basilar skull surgery in the past and at 1 point being nearly paralyzed in an wheelchair I feel that her complaint of cervical pain is outside the norm for this orthopedic office and would suggest her see her neurologist immediately and or returned to the nearest emergency department for more extensive testing. 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) Diabetic neuropathy (CMS/HCC) Herpes simplex History of MRSA infection Hypercortisolism (CMS/HCC) Hypertension (CMS/HCC) IBS (irritable bowel syndrome) Multinodular goiter (CMS/HCC) PCOS (polycystic ovarian syndrome) Seizure disorder (CMS/HCC) Sleep apnea SNHL (sensorineural hearing loss) Type 2 diabetes mellitus Vitamin D deficiency PAST SURGICAL HISTORY: Past Surgical History: Procedure Laterality Date APPENDECTOMY CHOLECYSTECTOMY CT ANGIOGRAM ABDOMEN PELVIS 01/13/2024 CT ANGIOGRAM ABDOMEN PELVIS 01/13/2024 CT ANGIOGRAM HEART CORONARY 01/14/2024 CT ANGIOGRAM HEART CORONARY 01/14/2024 SOCIAL HISTORY: Social History Occupational History Not on file Tobacco Use Smoking status: Some Days Current packs/day: 0.25 Types: Cigars, Cigarettes Smokeless tobacco: Never Vaping Use Vaping status: Some Days Substance and Sexual Activity Alcohol use: Never Drug use: Never Sexual activity: Not on file ALLERGIES: Allergies Allergen Reactions Iodinated Contrast Media Anaphylaxis Other Hives Shellfish-Derived Products Anaphylaxis and Rash Dimenhydrinate Other Reaction(s): Hives Duloxetine Swelling Duloxetine Hcl Swelling Fluticasone-Salmeterol Hives Meclizine Swelling Metformin Other Reaction(s): rash Pregabalin Other Reaction(s): Other (See Comments), tongue swells, Unknown Caused suicidal ideations Causes depression and suicidal thoughts Insulin Aspart (Human Analog) Rash MEDICATIONS: Current Outpatient Medications Medication Instructions Anoro Ellipta 62.5-25 MCG/ACT aerosol powder aspirin 81 mg, Oral, Daily RT atorvastatin (Lipitor) 40 MG tablet Every 24 hours Briviact 200 mg, 2 times daily buPROPion SR (WELLBUTRIN SR) 150 mg, 2 times daily cholecalciferol (VITAMIN D-3) 50,000 Units, 2 times weekly clotrimazole (Lotrimin) 1 % cream 1 Application, 2 times daily clotrimazole-betamethasone (Lotrisone) cream 2 times daily Continuous Blood Gluc Sensor (FreeStyle [place] 2 Sensor) misc cyanocobalamin (Vitamin B-12) 1000 MCG/ML injection cyclobenzaprine (FLEXERIL) 10 mg, 3 times daily PRN dexAMETHasone (DECADRON) 1 mg, Oral, Once diclofenac sodium 1 % gel ergocalciferol (Vitamin D2) 1.25 MG (68031 UT) capsule ezetimibe (ZETIA) 10 mg, Oral, Daily fenofibrate (TRICOR) 145 mg, Daily fluconazole (Diflucan) 100 MG tablet Fycompa 4 mg, Nightly gabapentin (Neurontin) 600 MG tablet Every 8 hours insulin aspart (NOVOLOG) 30 Units, 3 times daily with meals insulin lispro (HUMALOG KWIKPEN) 10 Units, Subcutaneous, 3 times daily with meals insulin NPH-insulin regular (HumuLIN 70/30 KWIKPEN) (70-30) 100 UNIT/ML injection Daily with breakfast lamoTRIgine (LaMICtal) 25 MG tablet TAKE 1 TAB DAILY X 2 WEEKS, THEN 2 TABS DAILY X 2 WEEKS Lancets (pluriSelect Delica Plus [id number]) misc TEST BLOOD SUGAR Lantus SoloStar 80 Units, Nightly lisinopril 5 MG tablet Every 24 hours meclizine (ANTIVERT) 25 mg, Every 6 hours PRN montelukast (Singulair) 10 MG tablet montelukast (Singulair) 4 MG chewable tablet Montelukast Sodium mupirocin (Bactroban) 2 % ointment Apply topically naloxone (Narcan) 4 mg/0.1 mL nasal spray naproxen (NAPROSYN) 500 mg, 2 times daily PRN nitroglycerin (Nitrostat) 0.[address] 1 TABLET UNDER TONGUE EVERY 5 MINS, UP TO 3 DOSES NEEDED FOR CHEST PAIN ondansetron (Zofran) 4 MG tablet Every 8 hours oxyCODONE-acetaminophen (Percocet) 5-325 MG tablet TAKE 1 - 2 TABS ORALLY EVERY 6 HOURS NEEDED FOR PAIN FOR 3 DAYS pantoprazole (PROTONIX) 40 mg, 2 times daily Pantoprazole Sodium (PROTONIX PO) Protonix spironolactone (ALDACTONE) 50 mg, 2 times daily sucralfate (Carafate) 1 GM/10ML suspension TAKE 2 TEASPOONFUL BY MOUTH 4 TIMES A DAY topiramate (TOPAMAX) 100 mg, Daily traMADol (ULTRAM) 50 mg, Every 6 hours PRN Trulicity 1.5 MG/0.5ML solution pen-injector valACYclovir (Valtrex) 500 MG tablet Ventolin HFA 108 (90 Base) MCG/ACT inhaler REVIEW OF SYSTEMS: Review of Systems General: Denies appetite or significant weight change. Denies fever, chills or night sweats. Denies lightheadedness. ENT: Denies dry mouth, sore throat or swollen glands. Denies difficulty swallowing. Denies ear pain. Respiratory: Denies chest pain, SOB, cough or wheezing. Denies asthma or pneumonia symptoms. Cardiovascular: Denies CP or palpitations. No syncope or dyspnea on exertion. Gastrointestinal: Denies nausea or vomiting. Denies heartburn or abdominal pain. Denies diarrhea. Genitourinary: Denies frequent or painful urination. Musculoskeletal: See HPI for comments. Integumentary: Denies rash, lesion or skin infection. Neurologic: Denies dizziness, headache or seizure history. Vitals: Body mass index is 39.31 kg/m . PHYSICAL EXAM: Physical Exam She did ambulate in the office today. She is complaining of numbness in both upper extremities which is new over the last week. She was evaluated in the emergency department but not for her neck. Minimal assessment with passive range of motion only no axial loading performed. Orders Placed This Encounter Procedures XR cervical spine complete 4 to 5 views Is the patient ?: No Reason for exam:: pain XR knee 3 views left Imaging Result: X-rays were reviewed today, fresh x-rays, AP and lateral views with bone on bone severe degenerative changes. ASSESSMENT: Neck pain PLAN: Her symptoms of neck pain and radicular symptoms are beyond this offices abilities, given your history of basilar skull and cervical surgery. This has best obtained to by your neurologist and if symptoms escalate or pain is uncontrollable with regular Tylenol than emergency department for more attentive testing. You need clearance before physical therapy which should be ordered and provided through your neurologist or neurosurgeon. VERONICA Oconnell documented in this encounter [facility] 03-19-2025 Instructions VERONICA Oconnell - 03/19/2025 9:45 AM EDT Her symptoms of neck pain and radicular symptoms are beyond this offices abilities, given your history of basilar skull and cervical surgery. This has best obtained to by your neurologist and if symptoms escalate or pain is uncontrollable with regular Tylenol than emergency department for more attentive testing. You need clearance before physical therapy which should be ordered and provided through your neurologist or neurosurgeon. documented in this encounter [facility] 03-15-2025 History of Present illness Narrative Hine Lam is a 49 y.o. 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 SUBJECTIVE: MEDICATIONS: Current Outpatient Medications Medication Instructions Anoro Ellipta 62.5-25 MCG/ACT aerosol powder atorvastatin (Lipitor) 40 MG tablet Every 24 hours Briviact 200 mg, 2 times daily buPROPion SR (WELLBUTRIN SR) 150 mg, 2 times daily cholecalciferol (VITAMIN D-3) 50,000 Units, 2 times weekly clotrimazole (Lotrimin) 1 % cream 1 Application, 2 times daily clotrimazole-betamethasone (Lotrisone) cream 2 times daily Continuous Blood Gluc Sensor (FreeStyle [place] 2 Sensor) misc cyanocobalamin (Vitamin B-12) 1000 MCG/ML injection cyclobenzaprine (FLEXERIL) 10 mg, 3 times daily PRN dexAMETHasone (DECADRON) 1 mg, Oral, Once diclofenac sodium 1 % gel ergocalciferol (Vitamin D2) 1.25 MG (27021 UT) capsule fenofibrate (TRICOR) 145 mg, Daily fluconazole (Diflucan) 100 MG tablet Fycompa 4 mg, Nightly gabapentin (Neurontin) 600 MG tablet Every 8 hours insulin aspart (NOVOLOG) 30 Units, 3 times daily with meals insulin lispro (HUMALOG KWIKPEN) 10 Units, Subcutaneous, 3 times daily with meals insulin NPH-insulin regular (HumuLIN 70/30 KWIKPEN) (70-30) 100 UNIT/ML injection Daily with breakfast lamoTRIgine (LaMICtal) 25 MG tablet TAKE 1 TAB DAILY X 2 WEEKS, THEN 2 TABS DAILY X 2 WEEKS Lantus SoloStar 80 Units, Nightly lisinopril 5 MG tablet Every 24 hours montelukast (Singulair) 10 MG tablet montelukast (Singulair) 4 MG chewable tablet Montelukast Sodium mupirocin (Bactroban) 2 % ointment Apply topically naloxone (Narcan) 4 mg/0.1 mL nasal spray naproxen (NAPROSYN) 500 mg, 2 times daily PRN ondansetron (Zofran) 4 MG tablet Every 8 hours pantoprazole (PROTONIX) 40 mg, 2 times daily Pantoprazole Sodium (PROTONIX PO) Protonix spironolactone (ALDACTONE) 50 mg, 2 times daily topiramate (TOPAMAX) 100 mg, Daily traMADol (ULTRAM) 50 mg, Every 6 hours PRN Trulicity 1.5 MG/0.5ML solution pen-injector valACYclovir (Valtrex) 500 MG tablet Ventolin HFA 108 (90 Base) MCG/ACT inhaler ALLERGIES: Allergies Allergen Reactions Other Hives Shellfish-Derived Products Anaphylaxis and Rash Duloxetine Swelling Duloxetine Hcl Swelling Fluticasone-Salmeterol Hives Meclizine Swelling Pregabalin Other Reaction(s): Other (See Comments), tongue swells, Unknown Caused suicidal ideations Causes depression and suicidal thoughts Insulin Aspart (Human Analog) Rash Past Medical History: Diagnosis Date Arnold-Chiari deformity (CMS/HCC) 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) Diabetic neuropathy (CMS/HCC) Herpes simplex History of MRSA infection Hypercortisolism (CMS/HCC) Hypertension (CMS/HCC) IBS (irritable bowel syndrome) Multinodular goiter (CMS/HCC) PCOS (polycystic ovarian syndrome) Seizure disorder (CMS/HCC) Sleep apnea SNHL (sensorineural hearing loss) Type 2 diabetes mellitus Vitamin D deficiency Past Surgical History: Procedure Laterality Date APPENDECTOMY CHOLECYSTECTOMY CT ANGIOGRAM ABDOMEN PELVIS 01/13/2024 CT ANGIOGRAM ABDOMEN PELVIS 01/13/2024 CT ANGIOGRAM HEART CORONARY 01/14/2024 CT ANGIOGRAM HEART CORONARY 01/14/2024 REVIEW OF SYMPTOMS: 14 POINT OF SYSTEM REVIEWED AND NEGATIVE OBJECTIVE: Constitutional: Afebrile @ home; no weakness or night sweats SKIN: No change in skin color; no itching, rash or lesions; no hair loss; HEENT: No HAs or injury; no dizziness; No difficulty with vision; no eye pain, discharge or lesions; no hearing loss or difficulty; no nasal discharge, NECK: No pain, limitation of motion, lumps or swollen glands RESP: No cough, wheezing or difficulty breathing. No CP with breathing; CARDIO: No CP , SOB or fatigue, No edema, palpitations or dyspnea with exertion GI: No N/V/D or abd. pain; good appetite with no recent change. No heart burn, liver or gallbladder disease; no rectal bleeding or pain : No urinary pain , frequency or odor. MUSCULOSKELETAL: No muscle pain or cramps; no extremity weakness.No joint pain, stiffness, swelling or limitation of movement NEUROLOGY: No H/O seizures, stroke or fainting. No weakness, tremors. Hematology: No bleeding problems or excessive bruising ENDOCRINE: No increase in hunger, thirst or urination; admits compliance to medical management plan Feet: numbness tingling yes , ulcers or skin break no Lab Results Component Value Date HGBA1C 7.8 03/15/2025 HGBA1C 5.8 (H) 06/29/2024 HGBA1C 5.6 09/07/2023 Lab Results Component Value Date GLU 272 03/15/2025 GLU 97 06/29/2024 GLU 142 (H) 05/02/2024 Visit Vitals BP 122/70 Pulse 74 Resp 18 Ht 5' 4 Wt 229 lb SpO2 94% BMI 39.31 kg/m Smoking Status Some Days BSA 2.17 m ASSESSMENT AND PLAN: Assessment/Plan Diagnoses and all orders for this visit: Type 2 diabetes mellitus with neurological manifestations (CMS/HCC) - POCT glycosylated hemoglobin (Hb A1C) docked device - POCT glucose manually resulted - insulin lispro (HumaLOG KWIKPEN) 100 UNIT/ML injection; Inject 10 Units under the skin in the morning and 10 Units at noon and 10 Units in the evening. Inject with meals. - dexAMETHasone (Decadron) 1 MG tablet; Take 1 tablet (1 mg) by mouth 1 time for 1 dose - Cortisol, morning; Future - Cortisol; Future - ACTH; Future - Growth hormone; Future - Luteinizing hormone; Future - Follicle stimulating hormone; Future - T4, free; Future - TSH; Future - Insulin-like growth factor 1; Future - Prolactin; Future - C-peptide; Future - Vitamin D 25 hydroxy Total; Future - Microalbumin / creatinine urine ratio; Future - Lipid panel; Future - Renal function panel; Future For diabetes we will continue with Trulicity 3 mg once weekly, we will add Humalog 6-8-10 units according to meal size. Will Check all pituitary hormones since she has brain surgery. Vitamin D deficiency Hyperlipemia, mixed ([facility]) Encounter for dietary consultation Class 2 severe obesity due to excess calories with serious comorbidity and body mass index (BMI) of 39.0 to 39.9 in adult ([facility]) Hypercortisolism ([facility]) I will check 1 mg dexamethasone suppression test, she used to be on korlym medication for long-term Follow up in about 6 weeks (around 04/26/2025). documented in this encounter [facility] 02-28-2025 History of Present illness Narrative CARDIOLOGY OFFICE VISIT CHIEF COMPLAINT Chief Complaint Patient presents with Follow-up 6 month with device check HISTORY OF PRESENT ILLNESS HPI 49-year-old female with a past medical history of cystic compulsive disorder and also history of Chiari malformation with brain surgery done approximately a year ago. Patient has been followed by gynecology service since June last year after patient was admitted to outside hospital. 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 Then she got some radiation into the right arm. Then she started noticing right arm and right lower extremity weakness and she went home with those symptoms. At home her blood pressure systolic was found to be in the 80s with heart rates in the 40s. She came to emergency department for an evaluation. During telemetry patient states that her heart rate was always bradycardic. She was referred for cardiology for an evaluation. She had an a stress test and echocardiogram and also a Holter monitor that were unremarkable. Echocardiogram in December 2022 shows left ventricular ejection fraction of 60 to 65% with no significant valvular normalities. Holter monitor in October 2022 shows underlying rhythm of sinus rhythm with minimum heart rate 45 bpm maximal heart rate of 129 beats per hours heart of 64 bpm. There were brief episodes of nonsustained supraventricular tachycardia up to 4 beats of duration. Asymptomatic. No evidence of heart block or atrial fibrillation. Had a stress test in December 2022 shows no evidence of ischemia with a left ventricular ejection fraction of 69%. Due to persisting of symptoms of palpitations chest discomfort and sometimes diaphoresis an event monitor was ordered in March 2023. Event monitor shows underlying rhythm was sinus rhythm. There were 23 triggered events with symptoms that they were not specified. 1 of these episodes were related with wide-complex tachycardia total of 9 beats that occurred on February 22, 2023 at 1 in the morning. rate of 173 bpm. Based on the results of the event monitor a cardiac MRI was done that shows left ventricular ejection fraction of 62% with delayed enhancement normal. No significant valvular normalities with mild asymmetric left ventricular hypertrophy. Patient with implantation of a loop recorder in December 10, 2023 with no complications. Loop recorder interrogation has been showing episodes of sinus bradycardia with pauses up to 5 seconds of duration multiple times for the last 2 months. These episodes happen between afternoon-early evening. Patient underwent implantation of a dual-chamber pacemaker in April 2024 with no complications. Loop recorder was removed. Since the last office visit she has been doing well. She denies any symptoms of chest pain or shortness breath or palpitations. Patient had a pending stress test ordered by primary cardiology service due to chest discomfort and retrosternal area with radiation to the back. Device interrogation today at the device clinic shows dual-chamber pacemaker Medtronic with battery Ingevity 13 years 8 months. No evidence of atrial or ventricular events noted. Past Medical History Medical History[1] Social History Social History[2] Family History Family History[3] Allergies: RX Allergies[4] Outpatient Medications: Current Outpatient Medications Medication Instructions albuterol (Ventolin HFA) 90 mcg/actuation inhaler 2 puffs, Every 6 hours PRN aspirin 81 mg, Daily atorvastatin (LIPITOR) 80 mg, oral, Nightly blood sugar diagnostic ([employer] Ver[employer] test strips) strip Test blood sugars 4 times a day as directed brivaracetam (BRIVIACT) 200 mg, oral, 2 times daily cholecalciferol (VITAMIN D-3) 2,000 Units, Daily clotrimazole (Lotrimin) 1 % cream 1 Application, As needed diclofenac sodium (Voltaren) 1 % gel gel APPLY 4 INCHES OF MEDICATION TO EACH KNEE EVERY 4 HOURS NEEDED ergocalciferol (VITAMIN D-2) 50 mcg, oral, Daily ezetimibe (ZETIA) 10 mg, oral, Daily fenofibrate (TRICOR) 145 mg, Daily gabapentin (Neurontin) 600 mg tablet 2 tablets, 3 times daily (0900,1400,1900) ibuprofen 800 mg, oral, Every 8 hours PRN lamoTRIgine (LAMICTAL) 200 mg, Daily lancets (YongCheTouch Delica Plus Lancet) 30 gauge misc Check BG lubiprostone (AMITIZA) 24 mcg, 2 times daily PRN metoprolol tartrate (LOPRESSOR) 25 mg, oral, 2 times daily montelukast (SINGULAIR) 10 mg, Nightly nitroglycerin (NITROSTAT) 0.4 mg, sublingual, Every 5 min PRN, May repeat dose every 5 minutes for up to 3 doses total. ondansetron (ZOFRAN) 8 mg, Every 8 hours PRN pantoprazole (ProtoNix) 40 mg EC tablet 1 tablet, 2 times daily sucralfate (CARAFATE) 1 g, 4 times daily before meals and nightly topiramate (TOPAMAX) 100 mg, oral, 2 times daily Trulicity 3 mg, subcutaneous, Weekly umeclidinium-vilanteroL (Anoro Ellipta) 62.5-25 mcg/actuation blister with device 1 puff, Daily valACYclovir (VALTREX) 500 mg, Daily REVIEW OF SYSTEMS Review of Systems Constitutional: Negative for malaise/fatigue. Cardiovascular: Positive for chest pain and dyspnea on exertion. Negative for claudication, cyanosis, irregular heartbeat, leg swelling, near-syncope, orthopnea, paroxysmal nocturnal dyspnea and syncope. Respiratory: Negative for cough, shortness of breath, snoring and wheezing. All other systems reviewed and are negative. VITALS Vitals: 02/28/25 1138 BP: 134/66 Pulse: 60 PHYSICAL EXAM Constitutional: Appearance: Normal and healthy appearance. Well-developed and not in distress. Obese. Comments: Left sided device well healed Neck: Vascular: No JVR. JVD normal. Pulmonary: Effort: Pulmonary effort is normal. Breath sounds: Normal breath sounds. No wheezing. No rhonchi. No rales. Chest: Chest wall: Not tender to palpatation. Cardiovascular: PMI at left midclavicular line. Normal rate. Regular rhythm. Normal S1. Normal S2. Murmurs: There is no murmur. No gallop. No click. No rub. Pulses: Intact distal pulses. Edema: Peripheral edema absent. Abdominal: Tenderness: There is no abdominal tenderness. Musculoskeletal: Normal range of motion. General: No tenderness. Skin: General: Skin is warm and dry. Neurological: General: No focal deficit present. Mental Status: Alert and oriented to person, place and time. ASSESSMENT AND PLAN Clinical impression 1. Evidence of bradycardia during admission in outside hospital. 2. Palpitations 3. Evidence of nonsustained ventricular tachycardia on event monitor 4. Normal left ventricular function per echocardiogram in 2022 and cardiac MRI in 2022 5. No evidence of ischemia per stress test in 2022 6. 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 Obsessive-compulsive disorder 8. Status post loop recorder implantation in December 2023 with no complications 9. Evidence of pauses that may be related with near syncope. This was discussed with patient and family members during this office visit. Status post loop recorder removal and implantation of a dual-chamber pacemaker in April 19, 2024 with no complications Plan recommendation From the professor of education on point she is doing well. No recurrence of atrial or ventricular arrhythmias. Continue beta-oswald therapy. Follow my office every 6 months or sooner if needed. Patient should continue with the stress test ordered by cardiology service. Risk factor modification and lifestyle modification discussed with patient. Diet , exercise and hydration discussed with patient. I have personally review with patient during this office visit, laboratory data, echocardiogram results, stress test results, Holter-event monitor results prior and after the last electrophysiology visit. All questions has been answered. Please excuse any errors in grammar or translation related to this dictation. Voice recognition software was utilized to prepare this document. JUDIT Miranda LPN, AM SCRIBING FOR, AND IN THE PRESENCE OF DR. GEOVANY VENTURA MD I, Dr. Ventura, personally performed the services described in the documentation as scribed by the nurse in my presence, and confirm it is both accurate and complete. 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 Hyperlipidemia Hypertension OCD (obsessive compulsive disorder) Other disorders of lung Lung trouble Personal history of other diseases of the digestive system History of gastroesophageal reflux (GERD) Personal history of other diseases of the musculoskeletal system and connective tissue History of arthritis Personal history of other diseases of the nervous system and sense organs History of sleep apnea Personal history of other diseases of the respiratory system History of chronic obstructive lung disease Personal history of other diseases of the respiratory system History of bronchitis Personal history of other diseases of the respiratory system History of asthma Personal history of other endocrine, nutritional and metabolic disease History of diabetes mellitus Personal history of other endocrine, nutritional and metabolic disease History of thyroid disorder Personal history of other mental and behavioral disorders History of depression Personal history of other mental and behavioral disorders History of mental disorder Personal history of other specified conditions History of snoring [2] Social History Tobacco Use Smoking status: Every Day Current packs/day: 0.50 Types: Cigarettes Smokeless tobacco: Never Vaping Use Vaping status: Never Used Substance Use Topics Alcohol use: Not Currently Comment: quit 2007 Drug use: Yes Types: Marijuana Comment: 3 times per week [3] Family History Problem Relation Name Age of Onset Hypertension Mother Arthritis Mother No Known Problems Father [4] Allergies Allergen Reactions Fish Containing Products Anaphylaxis Iodinated Contrast Media Anaphylaxis Duloxetine Unknown Pregabalin Unknown documented in this encounter [facility] Work Phone: 02-28-2025 Instructions Judit Salamanca LPN - 02/28/2025 11:00 AM EDT Follow up in 6 months with Dianna, with an in- clinic device check same day Remote device checks at 3 and 9 months Continue same medications and treatments. Patient educated on proper medication use. Patient educated on risk factor modification. Please bring any lab results from other providers / physicians to your next appointment. Please bring all medicines, vitamins, and herbal supplements with you when you come to the office. Prescriptions will not be filled unless you are compliant with your follow up appointments or have a follow up appointment scheduled as per instruction of your physician. Refills should be requested at the time of your visit. documented in this encounter [facility] Work Phone: 02-14-2025 History of Present illness Narrative CARDIOLOGY OFFICE VISIT CHIEF COMPLAINT Chief complaint: No chief complaint on file. HISTORY OF PRESENT ILLNESS The patient states that she has been having some episodes of high epigastric lower retrosternal chest discomfort which radiate to her back. These usually occur when she is trying to walk a little bit to get into a store so she can get a cart to write around on. She does have completely occluded distal abdominal aorta with distal collateral filling. She also has COPD. She does have shortness of breath with this. She states she has had some studies done at [facility] which I do not have where it appears that she might have some right subclavian artery stenosis. I told her she should always get her blood pressure done from the left arm. She denies palpitations and syncope. She has problems with vertigo. She denies any problem with her medication. I told her I would like to get a Lexiscan nuclear stress test and see her back. She did have CT coronary angiogram done a little over a year ago which demonstrated mild to moderate coronary artery disease. Impression: Coronary Artery Disease, mild to moderate by CCTA 01/2024 History of nonsustained ventricular tachycardia on event monitor, Dr. Ventura Loop Recorder in place, Dr. Ventura managing Normal left ventricular systolic function by echocardiogram 2022 No evidence of myocardial ischemia per stress test 2022 Obesity History of bronchial asthma PAD / 100% Aortoiliac Occlusive Disease. Vascular at [facility] managing Right subclavian artery stenosis Seizure disorder Arnold-Chiari Syndrome Mario Syndrome Hypertension Hyperlipidemia Diabetes Mellitus, Type 2. ENDO- Dr. Auguste Bipolar/ Anxiety / Drug Abuse COPD/Asthma Obstructive Sleep Apnea on PAP therapy Current Smoker Daily History of seizure disorder Chest discomfort, possible angina pectoris Plan: Lexiscan nuclear stress test since patient cannot walk on a treadmill because of significant PAD Office visit after above for further recommendations Please excuse any errors in grammar or translation related to this dictation. Voice recognition software was utilized to prepare this document. 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 Hyperlipidemia Hypertension OCD (obsessive compulsive disorder) Other disorders of lung Lung trouble Personal history of other diseases of the digestive system History of gastroesophageal reflux (GERD) Personal history of other diseases of the musculoskeletal system and connective tissue History of arthritis Personal history of other diseases of the nervous system and sense organs History of sleep apnea Personal history of other diseases of the respiratory system History of chronic obstructive lung disease Personal history of other diseases of the respiratory system History of bronchitis Personal history of other diseases of the respiratory system History of asthma Personal history of other endocrine, nutritional and metabolic disease History of diabetes mellitus Personal history of other endocrine, nutritional and metabolic disease History of thyroid disorder Personal history of other mental and behavioral disorders History of depression Personal history of other mental and behavioral disorders History of mental disorder Personal history of other specified conditions History of snoring Social History Social History Tobacco Use Smoking status: Every Day Current packs/day: 0.50 Types: Cigarettes Smokeless tobacco: Never Vaping Use Vaping status: Never Used Substance Use Topics Alcohol use: Not Currently Comment: quit 2007 Drug use: Yes Types: Marijuana Comment: 3 times per week Family History Family History Problem Relation Name Age of Onset Hypertension Mother Arthritis Mother No Known Problems Father Allergies: Allergies Allergen Reactions Fish Containing Products Anaphylaxis Iodinated Contrast Media Anaphylaxis Duloxetine Unknown Pregabalin Unknown Outpatient Medications: Current Outpatient Medications Medication Instructions albuterol (Ventolin HFA) 90 mcg/actuation inhaler 2 puffs, Every 6 hours PRN atorvastatin (LIPITOR) 80 mg, oral, Nightly blood sugar diagnostic ([employer] Verio test strips) strip Test blood sugars 4 times a day as directed brivaracetam (BRIVIACT) 200 mg, oral, 2 times daily buPROPion SR (Wellbutrin SR) 150 mg 12 hr tablet Take 1 tablet (150 mg) by mouth 3 times a day. cholecalciferol (VITAMIN D-3) 2,000 Units, Daily clotrimazole (Lotrimin) 1 % cream 1 Application, As needed diclofenac sodium (Voltaren) 1 % gel gel APPLY 4 INCHES OF MEDICATION TO EACH KNEE EVERY 4 HOURS NEEDED ergocalciferol (VITAMIN D-2) 50 mcg, oral, Daily ezetimibe (ZETIA) 10 mg, oral, Daily fenofibrate (TRICOR) 145 mg, Daily ibuprofen 800 mg, oral, Every 8 hours PRN lancets (OneTouch Delica Plus Lancet) 30 gauge misc Check BG lubiprostone (AMITIZA) 24 mcg, 2 times daily (morning and late afternoon) metoprolol tartrate (LOPRESSOR) 25 mg, oral, 2 times daily montelukast (SINGULAIR) 10 mg, Nightly ondansetron (ZOFRAN) 8 mg, Every 8 hours PRN pantoprazole (ProtoNix) 40 mg EC tablet 1 tablet, 2 times daily sucralfate (CARAFATE) 1 g, 4 times daily before meals and nightly topiramate (TOPAMAX) 100 mg, oral, 2 times daily Trulicity 3 mg, subcutaneous, Weekly umeclidinium-vilanteroL (Anoro Ellipta) 62.5-25 mcg/actuation blister with device 1 puff, Daily valACYclovir (VALTREX) 500 mg, Daily REVIEW OF SYSTEMS Review of Systems Neurological: Positive for dizziness. All other systems reviewed and are negative. VITALS There were no vitals filed for this visit. PHYSICAL EXAM Vitals and nursing note reviewed. Constitutional: Appearance: Healthy appearance. Eyes: Conjunctiva/sclera: Conjunctivae normal. Pupils: Pupils are equal, round, and reactive to light. Pulmonary: Effort: Pulmonary effort is normal. Breath sounds: Normal breath sounds. Cardiovascular: PMI at left midclavicular line. Normal rate. Regular rhythm. Murmurs: There is no murmur. No gallop. No click. No rub. Pulses: Decreased pulses. Comments: Decreased right radial pulse Edema: Peripheral edema absent. Musculoskeletal: Normal range of motion. Skin: General: Skin is warm and dry. Neurological: Mental Status: Alert and oriented to person, place and time. ASSESSMENT AND PLAN Diagnoses and all orders for this visit: Coronary artery disease involving [place] coronary artery of [place] heart, unspecified whether angina present NSVT (nonsustained ventricular tachycardia) (Multi) Status post placement of implantable loop recorder Atherosclerosis of [place] artery of both lower extremities with intermittent claudication 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 (Multi) HTN (hypertension), benign Hyperlipidemia LDL goal <100 Diabetes mellitus type II, non insulin dependent (Multi) АННА on CPAP Current every day smoker Asthma-chronic obstructive pulmonary disease overlap syndrome (Multi) Bipolar 2 disorder, major depressive episode (Multi) Anxiety Drug abuse Chest pain, unspecified type @ASSESSMENTANDPLANTEXT@ I,Karis Samuels LPN am scribing for, and in the presence of Dr. Ramiro Bhandari. I, Dr. Ramiro Bhandari, personally performed the services described in the documentation as scribed by Karis Samuels LPN in my presence, and confirm it is both accurate and complete. Dr. Ramiro Bloom MD Thank you for allowing me to participate in the care of this patient. Please do not hesitate to contact me with any further questions or concerns. documented in this encounter [facility] Work Phone: 02-14-2025 Instructions Karis Samuels LPN - 02/14/2025 10:00 AM EDT You are being scheduled for a Lexiscan stress test to be done soon Patient to follow up after testing. Continue same medications/treatment. Patient educated on proper medication use. Patient educated on risk factor modification. Please bring any lab results from other providers / physicians to your next appointment. Please bring all medicines, vitamins and herbal supplements with you when you come to the office. Prescriptions will not be filled unless you are compliant with your follow up appointments or have a follow up appointment scheduled as per instruction of your physician. Refills should be requested at the time of Your visit. documented in this encounter [facility] Work Phone: 01-18-2025 History of Present illness Narrative Hien Chunilly 49 y.o. SUBJECTIVE Hien is a 49-year-old young lady who was seen today for follow-up of her partial complex seizure with secondary generalization with history of Chiari malformation, syringomyelia and multiple other medical issues. Since last seen she has been doing very well on Briviact and Topamax and has been seizure-free. She has been complaining of aches and pains and does complain of knee pain for which she is seeing an orthopedic surgeon I would like to continue her medication the way she is taking and I discussed the precautions to be taken and depending on how she does but make future recommendation when she comes back to see me in 6 months I did review the medication list. Due to technical limitations of voice recognition and human error, this note may not accurately reflect the care of the patient. Review of Systems Constitutional: Negative for fatigue, fever and unexpected weight change. HENT: Negative for dental problem, ear pain, hearing loss, sinus pressure, tinnitus and trouble swallowing. Eyes: Negative for photophobia, pain and visual disturbance. Respiratory: Negative for cough, shortness of breath and wheezing. Cardiovascular: Negative for chest pain, palpitations and leg swelling. Gastrointestinal: Negative for abdominal pain, nausea and vomiting. Genitourinary: Negative for difficulty urinating, enuresis and frequency. Musculoskeletal: Positive for arthralgias, back pain and gait problem. Negative for joint swelling, neck pain and neck stiffness. Skin: Negative for pallor and rash. Allergic/Immunologic: Negative for food allergies. Neurological: Positive for seizures and headaches. Negative for dizziness, tremors, syncope, facial asymmetry, speech difficulty, weakness, light-headedness and numbness. Hematological: Negative for adenopathy. Does not bruise/bleed easily. Psychiatric/Behavioral: Negative for agitation, behavioral problems, confusion, hallucinations and sleep disturbance. The patient is not hyperactive. Patient Active Problem List Diagnosis Diabetes mellitus type II, non insulin dependent (Multi) Mixed conductive and sensorineural hearing loss of right ear with restricted hearing of left ear 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 (Multi) Diabetic neuropathy (Multi) Fluid level behind tympanic membrane of right ear History of thyroid nodule Hyperlipidemia LDL goal <100 Hypokalemia Multinodular goiter (nontoxic) Nausea and vomiting PCOS (polycystic ovarian syndrome) Seizure disorder (Multi) Sensorineural hearing loss (SNHL) of left ear with restricted hearing of right ear Syringomyelia (Multi) Unilateral headache Vitamin D deficiency Bradycardia Obesity Neuropathy Sinus node dysfunction (Multi) Syncope and collapse Vitamin B12 deficiency Current every day smoker Other emphysema (Multi) Abnormal loss of weight Acid reflux Anxiety Aortoiliac occlusive disease (Multi) Atherosclerosis of 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 Constipation, unspecified Cramps, extremity Depression Disturbance of skin sensation Drug abuse (Multi) DUB (dysfunctional uterine bleeding) Epigastric pain Genital HSV H/O ETOH abuse Irregular menses ITB syndrome Melena Menorrhagia АННА on CPAP Sleep apnea Rectal bleed Thyroid nodule Tubular adenoma of colon HTN (hypertension), benign Diabetes mellitus (Multi) Diabetes (Multi) High cholesterol Hypercholesterolemia Asymmetric SNHL (sensorineural hearing loss) Morbid obesity (Multi) Chronic obstructive pulmonary disease (Multi) COPD with asthma (Multi) Epilepsy Seizure (Multi) Headache disorder BMI 32.0-32.9,adult Wide-complex tachycardia Palpitations Night sweats Chest pain Shortness of breath Status post placement of implantable loop recorder NSTEMI (non-ST elevated myocardial infarction) (Multi) Carotid bruit Bipolar 2 disorder, major depressive episode (Multi) NSVT (nonsustained ventricular tachycardia) (Multi) Sick sinus syndrome (Multi) Dizziness Cyst of pituitary gland (Multi) Liver failure (Multi) Benign essential hypertension Asthma-chronic obstructive pulmonary disease overlap syndrome (Multi) 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 (Multi) Past Medical History: Diagnosis Date Arrhythmia Asthma Current smoker Diabetes mellitus (Multi) Disease of thyroid gland History of Chiari malformation 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 Hyperlipidemia Hypertension OCD (obsessive compulsive disorder) Other disorders of lung Lung trouble Personal history of other diseases of the digestive system History of gastroesophageal reflux (GERD) Personal history of other diseases of the musculoskeletal system and connective tissue History of arthritis Personal history of other diseases of the nervous system and sense organs History of sleep apnea Personal history of other diseases of the respiratory system History of chronic obstructive lung disease Personal history of other diseases of the respiratory system History of bronchitis Personal history of other diseases of the respiratory system History of asthma Personal history of other endocrine, nutritional and metabolic disease History of diabetes mellitus Personal history of other endocrine, nutritional and metabolic disease History of thyroid disorder Personal history of other mental and behavioral disorders History of depression Personal history of other mental and behavioral disorders History of mental disorder Personal history of other specified conditions History of snoring Past Surgical History: Procedure Laterality Date BRAIN SURGERY CARDIAC ELECTROPHYSIOLOGY PROCEDURE Left 12/10/2023 Procedure: Loop Insertion; Surgeon: Geovany Ventura MD; Location: [facility]; Service: Electrophysiology; Laterality: Left; CARDIAC ELECTROPHYSIOLOGY PROCEDURE Left 05/02/2024 Procedure: Loop Recorder Explant; Surgeon: Geovany Ventura MD; Location: [facility]; Service: Electrophysiology; Laterality: Left; CARDIAC ELECTROPHYSIOLOGY PROCEDURE Left 05/02/2024 Procedure: PPM IMPLANT DUAL; Surgeon: Geovany Ventura MD; Location: [facility]; Service: Electrophysiology; Laterality: Left; GALLBLADDER SURGERY 10/14/2017 Gallbladder Surgery TONSILLECTOMY 10/14/2017 Tonsillectomy With Adenoidectomy reports that she has been smoking cigarettes. She has never used smokeless tobacco. She reports that she does not currently use alcohol. She reports current drug use. Drug: Marijuana. BP 120/68 (BP Location: Left arm, Patient Position: Sitting, BP Cuff Size: Adult) Ht 1.638 m (5' 4.5 ) Wt 98.2 kg (216 lb 6.4 oz) BMI 36.57 kg/m OBJECTIVE Physical Exam/Neurological Exam Constitutional: General appearance: no acute distress . Patient has quite a few coarse hairs and on the face probably from hirsutism. Auscultation of Heart: Regular rate and rhythm, no murmurs, normal S1 and S2. Carotid Arteries: Intact without any bruits. Neck is supple. No lymph adenopathy. Peripheral Vascular Exam: Pulses 1 +and equal in all extremities. No swelling, varicosities in lower extremities,, edema or tenderness to palpations. Abdomen is soft, nondistended. No organomegaly. Mental status: The patient was in no distress, alert, interactive and cooperative. Affect is appropriate. Orientation: oriented to person, oriented to place and oriented to time. Memory: recent memory intact and remote memory intact. Attention: normal attention span and normal concentrating ability. Language: normal comprehension and no difficulty naming common objects. Fund of knowledge: Patient displays adequate knowledge of current events, adequate fund of knowledge regarding past history and adequate fund of knowledge regarding vocabulary. Eyes: The ophthalmoscopic examination was normal. The fundi are visualized with normal disc margins and without. Cranial nerve II: Visual pool full to confrontation. Cranial nerves III, IV, and : Pupils round, equally reactive to light; no ptosis. EOMs intact. No nystagmus. Cranial Nerve V: Facial sensation intact bilaterally. Cranial nerve VII: Normal and symmetric facial strength. Cranial nerve VIII: Hearing is impaired in the right ear but normal in the left ear. Cranial nerves IX and X: Palate elevates symmetrically. Cranial nerve XI: Shoulder shrug and neck rotation strength are intact. Cranial nerve XII: Tongue midline with normal strength. Motor: Motor exam was normal. Muscle bulk was normal in both upper and lower extremities. Muscle tone was normal in both upper and lower extremities. Muscle strength was 5/5 throughout. no abnormal or adventitious movements were present. Deep Tendon Reflexes: left biceps 2+ , right biceps 2+, left triceps 2+, right triceps 2+, left brachioradialis 2+, right brachioradialis 2+, left patella 2+, right patella 2+, left ankle jerk 2+, right ankle jerk 2+ Plantar Reflex: Toes downgoing to plantar stimulation on the left. Toes downgoing to plantar stimulation on the right. Sensory Exam: Impaired to light touch and pinprick both in the hands and legs in the glove and stocking type. Coordination: There is no limb dystaxia and rapid alternating movements are intact. Gait: Gait is ataxic but she was able to ambulate without any assistance. ASSESSMENT/PLAN Diagnoses and all orders for this visit: Seizure (Multi) Partial symptomatic epilepsy with complex partial seizures, intractable, without status epilepticus (Multi) - brivaracetam (Briviact) 100 mg tablet tablet; Take 2 tablets (200 mg) by mouth 2 times a day. - topiramate (Topamax) 100 mg tablet; Take 1 tablet (100 mg) by mouth 2 times a day. 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 (Multi) Diabetic polyneuropathy associated with type 2 diabetes mellitus (Multi) Gilda Leong MD 01/18/2025 12:57 PM documented in this encounter [facility] Work Phone: 01-12-2025 Note ED Patient Education Note Infectious Disease Otitis Externa Otitis externa is an infection of the outer ear canal. The outer ear canal is the area between the outside of the ear and the eardrum. Otitis externa is sometimes called swimmer's ear. What are the causes? Common causes of this condition include: ??? Swimming in dirty water. ??? Moisture in the ear. ??? An injury to the inside of the ear. ??? An object stuck in the ear. ??? A cut or scrape on the outside of the ear or in the ear canal. What increases the risk? You are more likely to develop this condition if you go swimming often. What are the signs or symptoms? The first symptom of this condition is often itching in the ear. Later symptoms of the condition include: ??? Swelling of the ear. ??? Redness in the ear. ??? Ear pain. The pain may get worse when you pull on your ear. ??? Pus coming from the ear. How is this diagnosed? This condition may be diagnosed by examining the ear and testing fluid from the ear for bacteria and funguses. How is this treated? This condition may be treated with: ??? Antibiotic ear drops. These are often given for 10?14 days. ??? Medicines to reduce itching and swelling. Follow these instructions at home: ??? If you were prescribed antibiotic ear drops, use them as told by your health care provider. Do not stop using the antibiotic even if you start to feel better. ??? Take sgda-lxc-pjtggeo and prescription medicines only as told by your health care provider. ??? Avoid getting water in your ears as told by your health care provider. This may include avoiding swimming or water sports for a few days. ??? Keep all follow-up visits. This is important. How is this prevented? Keep your ears dry. Use the corner of a towel to dry your ears after you swim or bathe. ??? Avoid scratching or putting things in your ear. Doing these things can damage the ear canal or remove the protective wax that lines it, which makes it easier for bacteria and funguses to grow. ??? Avoid swimming in lakes, polluted water, or swimming pools that may not have enough chlorine. Contact a health care provider if: ??? You have a fever. ??? Your ear is still red, swollen, painful, or draining pus after 3 days. ??? Your redness, swelling, or pain gets worse. ??? You have a severe headache. Get help right away if: ??? You have redness, swelling, and pain or tenderness in the area behind your ear. Summary ??? Otitis externa is an infection of the outer ear canal. ??? Common causes include swimming in dirty water, moisture in the ear, or a cut or scrape in the ear. ??? Symptoms include pain, redness, and swelling of the ear canal. ??? If you were prescribed antibiotic ear drops, use them as told by your health care provider. Do not stop using the antibiotic even if you start to feel better. This information is not intended to replace advice given to you by your health care provider. Make sure you discuss any questions you have with your health care provider. Document Revised: 01/07/2022 Document Reviewed: 01/07/2022 [email or web address] Patient Education ? 2023 [employer]. [facility] 01-09-2025 Hospital Discharge instructions Follow Up Care 01/09/2025 12:26:52 With:Mindy Morgan Address: [address] [place] [address] [address] Business (1) When:Within 3 Day(s) [facility] 01-09-2025 Evaluation + Plan note Extrac betsy from: Title:ED Note Author:Ubaldo Nevarez DO Date:01/09 Chest pain (R07.9: Chest mindi n, unspecified) COPD exacerbation (J44.1: Chronic obstructive pulmonary disease with (acute) exacerbation) Dehydration (E86.0: Dehydration) Orders: albuterol, 2 puff(s), Inhalation, q6hr for 7 day(s), 6.7 gm, Refill(s) 0, [id number], 165, cm, 01/09/25 12:41:00 EST, Height/Length Dosing, 98, kg, 01/09/25 12:41:00 EST, Weight Dosing azithromycin, 250 mg, Oral, As Directed, Take two tabs by mouth on day one, then one tab daily, # 6 tab(s), Refills(s) 0, Pharmacy: [id number], 165, cm, 01/09/25 12:41:00 EST, Height/Length Dosing, 98, kg, 01/09/25 12:41:00 EST, Weight Dosing predniSONE, 3, Oral, Daily, X 7 day(s), # 21 tab(s), Refills(s) 0, Pharmacy: [id number], 165, cm, 01/09/25 12:41:00 EST, Height/Length Dosing, 98, kg, 01/09/25 12:41:00 EST, Weight Dosing Sodium Chloride 0.9% intravenous solution 1,000 mL, 1,000 mL, IV, 1,000 mL/hr, STAT, Start date 01/09/25 13:38:00 EST, 1 hour(s), Total volume (mL): 1,000, 98 kg, 2.12, m2 Basic Metabolic Panel Blood Gas Dung CBC w/ Auto Diff ED Cardiac Monitoring eGFR Ethanol Level Extra SST Tube Hepatic Function Panel Lipase Level Oxygen Saturation Oxygen Therapy PT & PTT Saline Lock Insert Troponin 0 Hr. Troponin 1 Hr. XR Chest Single View [facility] 02-20-2025 Evaluation + Plan note* Assessment & Plan Note - Rico Coy MD - 12/28/2024 11:00 AM ESTAssociated Problem(s): Diabetes mellitus type II, non insulin dependent (Multi) Orders: dulaglutide (Trulicity) 3 mg/0.5 mL injection; Inject 3 mg under the skin 1 (one) time per week. [facility] Work Phone: [phone] 197-648502-20-2025 Evaluation + Plan note* Assessment & Plan Note - Rico Coy MD - 12/28/2024 11:00 AM ESTAssociated Problem(s): Obesity Orders: Follow Up In Endocrinology; Future Adrenocorticotropic Hormone (ACTH); Future Cortisol AM; Future Dexamethasone; Future DHEA-Sulfate; Future dulaglutide (Trulicity) 3 mg/0.5 mL injection; Inject 3 mg under the skin 1 (one) time per week. [facility] Work Phone: [phone] 164-787902-20-2025 Evaluation + Plan note* Assessment & Plan Note - Rico Coy MD - 12/28/2024 11:00 AM ESTAssociated Problem(s): Multinodular goiter (nontoxic) [facility] Work Phone: [phone] Evaluation + Plan note* Assessment & Plan Note - Rico Coy MD - 12/28/2024 11:00 AM ESTAssociated Problem(s): Morbid obesity (Multi) [facility] Work Phone: [phone] 544-510902-20-2025 History of Present illness Narrative* Rico Coy MD - 12/28/2024 11:00 AM EST Patient coming in for follow up for T2DM Subjective Hien Lam is a 49 y.o. female who presents for follow up for Type 2 diabetes mellitus. Lab Results Component Value Date HGBA1C 5.8 (H) 06/29/2024 Hien Lam is a 49 y.o. female who presents for follow-up of Type 2 diabetes mellitus. The initial diagnosis of diabetes was made over 10 years ago . The patient does have a known family history of diabetes. Current meds: Trulicity 0.75 mg once weekly Was 420lbs now 197lbs. Gained 18lbs. Per patient PCP increased trulicity in November to trulicity 1.5 mg lost 5 lbs since Oct Still working on stopping smoking Now using vape tobacco vape Was previously on depot shots and then OCP Checked BG random and its always in the normal range. Checks it 5 times a week 112 Per patient sometimes 70s. 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 Per records saw Dr. Howe and per notes24 hour urine showed cortisol of 19. Stopped Korlym Oct 2020 Has been trying to eat better Currently doing portion control Has a pacemaker Had a brain surgery due to [place] chiari syndrome. Follows with PCP and prescribes gabapentin 1200 mgTID Getting set up for L knee surgery and aortic stent placement. Hopes to find a new plastic surgeon who accepts her insurance for pannus skin reduction. Foot Exam: Not following with podiatry. On Gabapentin Eye Exam: was seen last aug 2023 Lipid Panel: atorvastatin 80 mg and fenofibrate LDL: 96 and T Urine Albumin: UACR in Aug 2023 18.3. Was previously on lisinopril Per patient she can grow a gleason She shaves her face daily Last Testosterone elevated 71 Review of Systems all pertinent systems reviewed and are otherwise negative Objective BP 96/65 (BP Location: Left arm, Patient Position: Sitting, BP Cuff Size: Large adult) Pulse 83 Temp 36.5 C (97.7 F) Ht 1.651 m (5' 5 ) Wt 97.5 kg (215 lb) BMI 35.78 kg/m Physical Exam Constitutional: General: She is not in acute distress. Appearance: Normal appearance. HENT: Head: Normocephalic and atraumatic. Eyes: Extraocular Movements: Extraocular movements intact. Pupils: Pupils are equal, round, and reactive to light. Cardiovascular: Rate and Rhythm: Normal rate and regular rhythm. Pulmonary: Effort: Pulmonary effort is normal. No respiratory distress. Breath sounds: Normal breath sounds. Abdominal: General: Bowel sounds are normal. Palpations: Abdomen is soft. Tenderness: There is no abdominal tenderness. Skin: Coloration: Skin is not jaundiced or pale. Findings: No erythema or rash. Neurological: General: No focal deficit present. Mental Status: She is alert and oriented to person, place, and time. Deep Tendon Reflexes: Reflexes normal. Psychiatric: Mood and Affect: Mood normal. Behavior: Behavior normal. Lab Review Glucose (mg/dL) Date Value 06/29/2024 97 05/02/2024 142 (H) 12/10/2023 126 (H) Hemoglobin A1C (%) Date Value 06/29/2024 5.8 (H) 09/07/2023 5.6 02/09/2023 5.9 (A) 11/20/2021 8.5 (A) 04/22/2021 7.5 Bicarbonate (mmol/L) Date Value 06/29/2024 19 (L) 05/02/2024 20 (L) 12/10/2023 21 Urea Nitrogen (mg/dL) Date Value 06/29/2024 21 05/02/2024 13 12/10/2023 15 Creatinine (mg/dL) Date Value 06/29/2024 0.75 05/02/2024 0.64 12/10/2023 0.79 Lab Results Component Value Date CHOL 183 06/29/2024 CHOL 161 09/07/2023 CHOL 292 (H) 07/13/2019 Lab Results Component Value Date HDL 32.0 06/29/2024 HDL 33.1 09/07/2023 HDL 18.7 (A) 07/13/2019 Lab Results Component Value Date LDLCALC 93 06/29/2024 LDLCALC 96 09/07/2023 Lab Results Component Value Date TRIG 288 (H) 06/29/2024 TRIG 161 (H) 09/07/2023 TRIG 489 (H) 07/13/2019 No components found for: CHOLHDL Lab Results Component Value Date TSH 0.94 06/29/2024 No results found for: ALBUR , [id number] Health Maintenance: Assessment/Plan Hien Lam is a 49 y.o. female who presents for follow-up of Type 2 diabetes mellitus. The initial diagnosis of diabetes was made over 10 years ago . The patient does have a known family history of diabetes. Current meds: Trulicity 0.75 mg once weekly Was 420lbs now 197lbs. Gained 18lbs. Per patient PCP increased trulicity in November to trulicity 1.5 mg lost 5 lbs since Oct Still working on stopping smoking Now using vape tobacco vape Was previously on depot shots and then OCP Checked BG random and its always in the normal range. Checks it 5 times a week 112 Per patient sometimes 70s. 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 Per records saw Dr. Howe and per notes24 hour urine showed cortisol of 19. Stopped Korlym Oct 2020 Has been trying to eat better Currently doing portion control Has a pacemaker Had a brain surgery due to [place] chiari syndrome. Follows with PCP and prescribes gabapentin 1200 mgTID Getting set up for L knee surgery and aortic stent placement. Hopes to find a new plastic surgeon who accepts her insurance for pannus skin reduction. Foot Exam: Not following with podiatry. On Gabapentin Eye Exam: was seen last aug 2023 Lipid Panel: atorvastatin 80 mg and fenofibrate LDL: 96 and T Urine Albumin: UACR in Aug 2023 18.3. Was previously on lisinopril Per patient she can grow a gleason She shaves her face daily Last Testosterone elevated 71 Plan: Increase Trulicity to 3 mg once weekly Continue to check BG 3-4 times a week Monitor weight Continue to watch diet Dexamethasone suppression test RTC in 6 months Assessment & Plan Diabetes mellitus type II, non insulin dependent (Multi) Orders: dulaglutide (Trulicity) 3 mg/0.5 mL injection; Inject 3 mg under the skin 1 (one) time per week. Class 2 severe obesity with serious comorbidity and body mass index (BMI) of 35.0 to 35.9 in adult,unspecified obesity type Orders: Follow Up In Endocrinology; Future Adrenocorticotropic Hormone (ACTH); Future Cortisol AM; Future Dexamethasone; Future DHEA-Sulfate; Future dulaglutide (Trulicity) 3 mg/0.5 mL injection; Inject 3 mg under the skin 1 (one) time per week. Multinodular goiter (nontoxic) Morbid obesity (Multi) [facility]: [phone] 433-316102-20-2025 Instructions* Patient Instructions* Rico Coy MD - 12/28/2024 11:00 AM EST Increase Trulicity to 3 mg once weekly Continue to check BG 3-4 times a week Monitor weight Continue to watch diet Dexamethasone suppression test -take 1mg of dexamethasone around 10- 11 pm -the following morning, around 8am (Time sensitive) you should go to the lab and get your bloodworkdone -this test is best done if you got good sleep at night and you follow your usual night routing RTC in 6 months [facility] Work Phone: [phone] 450-624102-20-2025 Miscellaneous Notes* Assessment & Plan Note - Rico Coy MD - 12/28/2024 11:00 AM ESTAssociated Problem(s): Diabetes mellitus type II, non insulin dependent (Multi) Orders: dulaglutide (Trulicity) 3 mg/0.5 mL injection; Inject 3 mg under the skin 1 (one) time per week. * Assessment & Plan Note - Rico Coy MD - 12/28/2024 11:00 AM EST Associated Problem(s): Obesity Orders: Follow Up In Endocrinology; Future Adrenocorticotropic Hormone (ACTH); Future Cortisol AM; Future Dexamethasone; Future DHEA-Sulfate; Future dulaglutide (Trulicity) 3 mg/0.5 mL injection; Inject 3 mg under the skin 1 (one) time per week. * Assessment & Plan Note - Rico Coy MD - 12/28/2024 11:00 AM EST Associated Problem(s): Multinodular goiter (nontoxic) * Assessment & Plan Note - Rico Coy MD - 12/28/2024 11:00 AM EST Associated Problem(s): Morbid obesity (Multi) documented in this [facility] Work Phone: [phone] 493-577012-16-2024 History of Present illness Narrative* Lenin Bajwa MD - 10/23/2024 12:45 PM EST 12-04-2021 Chiari decompression. Today is having back of head and neck pain and gets a knot popping out, like a blueberry. Having seizures. Is under a lot of stress. This has been going on for around 9 months. 49-year-old woman who underwent surgery for Chiari decompression in 2021 returns for follow-up. Sheis complaining about neck pain and a feeling of fullness at the region of her incision. The region of fullness can go up and down during the day. The neck pain can be as severe, particularly at night. On exam, the patient is alert and interactive. Her incision is well-healed there has been some atrophy of the soft tissue in the intermuscular plane. She moves all extremities with good strength. At this time the etiology of the patient's symptoms is not clear. She relates that she has multipleareas of vascular stenosis or obstruction. As such, I think would be extremely unlikely that she would be a candidate for any further surgical intervention. In light of this, I think a new MRI to evaluate the Chiari would be superfluous. I will refer her for a pain management evaluation to discuss nonoperative means of symptom control. documented in this [facility] Work Phone: 1([phone]) 311-900512-02-2024 History of Present illness Narrative* Jayce Duke DO - 10/09/2024 1:30 PM EST Impression: 1. History of tympanostomy tube placement 2. Vertigo Recommendations/Plan: I reassured the patient there is no evidence of any impacted cerumen today. Her PE tube is functioning normally and there is no evidence of any infectious drainage. She must continue to keep all water out of that right ear. We will try to coordinate a referral to vestibular therapy for an evaluation regarding her persistent vertigo. This electronic medical record note was created with the use of voice recognition software. Despite proofreading, typographical or grammatical errors may be present that could affect meaning of content Subjective: Hien returns to the office today as a checkup on her ears. She denies any infectious drainagefever or chills. She did notice a large amount of black cerumen draining from her right ear. No problems in the left ear. Recently she has noticed some true spinning and this seems to worsen whenevershe extends her neck backward. She is touching base with her neurosurgeon over the next week or so. Objective: Visit Vitals BP 112/66 Temp 36.2 C (97.2 F) (Temporal) Current Outpatient Medications Medication Instructions albuterol (Ventolin HFA) 90 mcg/actuation inhaler 2 puffs, Every 6 hours PRN aspirin 81 mg, oral, Daily atorvastatin (LIPITOR) 80 mg, oral, Nightly blood sugar diagnostic (YongCheTouch Verio test strips) strip Test blood sugars 4 times a day as directed brivaracetam (BRIVIACT) 200 mg, oral, 2 times daily buPROPion SR (Wellbutrin SR) 150 mg 12 hr tablet Take 1 tablet (150 mg) by mouth 3 times a day. cholecalciferol (VITAMIN D-3) 2,000 Units, Daily clotrimazole (Lotrimin) 1 % cream 1 Application, As needed diclofenac sodium (Voltaren) 1 % gel gel APPLY 4 INCHES OF MEDICATION TO EACH KNEE EVERY 4 HOURS ASNEEDED dulaglutide (TRULICITY) 0.75 mg, subcutaneous, Once Weekly ergocalciferol (VITAMIN D-2) 50 mcg, oral, Daily ezetimibe (ZETIA) 10 mg, oral, Daily fenofibrate (TRICOR) 145 mg, Daily gabapentin (NEURONTIN) 1,200 mg, 3 times daily ibuprofen 800 mg, oral, Every 8 hours PRN lamoTRIgine (LAMICTAL) 200 mg, Daily lancets (OneTouch Delica Plus Lancet) 30 gauge misc Check BG lubiprostone (AMITIZA) 24 mcg, 2 times daily (morning and late afternoon) metoprolol tartrate (LOPRESSOR) 25 mg, oral, 2 times daily montelukast (SINGULAIR) 10 mg, Nightly ondansetron (ZOFRAN) 8 mg, Every 8 hours PRN pantoprazole (ProtoNix) 40 mg EC tablet 1 tablet, 2 times daily sucralfate (CARAFATE) 1 g, 4 times daily before meals and nightly topiramate (TOPAMAX) 100 mg, oral, 2 times daily umeclidinium-vilanteroL (Anoro Ellipta) 62.5-25 mcg/actuation blister with device 1 puff, Daily valACYclovir (VALTREX) 500 mg, Daily Allergies Allergen Reactions Fish Containing Products Anaphylaxis Iodinated Contrast Media Anaphylaxis Duloxetine Unknown Pregabalin Unknown Physical Exam: Right ear-external canal is patent. PE tube is functioning normally. No drainage or signs of infection. Mastoid nontender. Left ear-external canal is patent. Tympanic membrane intact. No effusion. Mastoid nontender. Nose-clear no rhinorrhea Results: [] Procedure: [] Jayce Duke DO documented in this [facility] Work Phone: [phone]) [phone] Evaluation + Plan noteExtracted from: Title:ED Note Author:Sunny SAUCEDA, Vincenzo Hardy te:10/04/24 Lumbago (M54.50: Low back pa in, unspecified) Orders: lidocaine topical, 1 patch(es), Topical, Daily, 7 patch(es), Refill(s) 0, apply 12 hours on and 12 hours off daily, [id number], 165.1, cm, 10/04/24 9:27:00 EST, Height/Length Dosing, 100, kg, 10/04/24 9:27:00 EST, Weight Dosing predniSONE, 50 mg = 1 tab(s), Oral, Daily, X 7 day(s), # 7 tab(s), Refills(s) 0, Pharmacy: [id number], 165.1, cm, 10/04/24 9:27:00 EST, Height/Length Dosing, 100, kg, 10/04/24 9:27:00 EST, Weight Dosing tramadol, 50 mg = 1 tab(s), Oral, q6hr, PRN for pain, X 3 day(s), # 12 tab(s), Refills(s) 0, Pharmacy: [id number], 165.1, cm, 10/04/24 9:27:00 EST, Height/Length Dosing, 100, kg, 10/04/24 9:27:00 EST, Weight Dosing XR Spine Lumbosacral 2 or 3 Views [facility] 11-27-2024 Hospital Discharge instructions Patient Education 10/04/2024 11:29:31 Back Exercises, [id number] Back Exercises These exercises help to make your trunk and back strong. They also help to keep the lower back flexible. Doing these exercises can help to prevent or lessen pain in your lower back. If you have back pain, try to do these exercises 2 3 times each day or as told by your doctor. As you get better, do the exercises once each day. Repeat the exercises more often as told by your doctor. To stop back pain from coming back, do the exercises once each day, or as told by your doctor. Do exercises exactly as told by your doctor. Stop right away if you feel sudden pain or your pain gets worse. Exercises Single knee to chest Do these steps 3 5 times in a row for each le.Lie on your back on a firm bed or the floor with your legs stretched out. 2.Bring one knee to your chest. 3.Grab your knee or thigh with both hands and hold it in place. 4.Pull on your knee until you feel a gentle stretch in your lower back or butt. 5.Keep doing the stretch for 10 30 seconds. 6.Slowly let go of your leg and straighten it. Pelvic tilt Do these steps 5 10 times in a row: 1.Lie on your back on a firm bed or the floor with your legs stretched out. 2.Bend your knees so they point up to the ceiling. Your feet should be flat on the floor. 3.Tighten your lower belly (abdomen) muscles to press your lower back against the floor. This will make your tailbone point up to the ceiling instead of pointing down to your feet or the floor. 4.Stay in this position for 5 10 seconds while you gently tighten your muscles and breathe evenly. Cat cow Do these steps until your lower back bends more easily: 1.Get on your hands and knees on a firm bed or the floor. Keep your hands under your shoulders, andkeep your knees under your hips. You may put padding under your knees. 2.Let your head hang down toward your chest. Tighten (contract) the muscles in your belly. Point your tailbone toward the floor so your lower back becomes rounded like the back of a cat. 3.Stay in this position for 5 seconds. 4.Slowly lift your head. Let the muscles of your belly relax. Point your tailbone up toward the ceiling so your back forms a sagging arch like the back of a cow. 5.Stay in this position for 5 seconds. Press-ups Do these steps 5 10 times in a row: 1.Lie on your belly (face-down) on a firm bed or the floor. 2.Place your hands near your head, about shoulder-width apart. 3.While you keep your back relaxed and keep your hips on the floor, slowly straighten your arms to raise the top half of your body and lift your shoulders. Do not use your back muscles. You may change where you place your hands to make yourself more comfortable. 4.Stay in this position for 5 seconds. Keep your back relaxed. 5.Slowly return to lying flat on the floor. Bridges Do these steps 10 times in a row: 1.Lie on your back on a firm bed or the floor. 2.Bend your knees so they point up to the ceiling. Your feet should be flat on the floor. Your armsshould be flat at your sides, next to your body. 3.Tighten your butt muscles and lift your butt off the floor until your waist is almost as high as your knees. If you do not feel the muscles working in your butt and the back of your thighs, slide your feet 1 2 inches (2.5 5 cm) farther away from your butt. 4.Stay in this position for 3 5 seconds. 5.Slowly lower your butt to the floor, and let your butt muscles relax. If this exercise is too easy, try doing it with your arms crossed over your chest. Belly crunches Do these steps 5 10 times in a row: 1.Lie on your back on a firm bed or the floor with your legs stretched out. 2.Bend your knees so they point up to the ceiling. Your feet should be flat on the floor. 3.Cross your arms over your chest. 4.Tip your chin a little bit toward your chest, but do not bend your neck. 5.Tighten your belly muscles and slowly raise your chest just enough to lift your shoulder blades atiny bit off the floor. Avoid raising your body higher than that because it can put too much stresson your lower back. 6.Slowly lower your chest and your head to the floor. Back lifts Do these steps 5 10 times in a row: 1.Lie on your belly (face-down) with your arms at your sides, and rest your forehead on the floor. 2.Tighten the muscles in your legs and your butt. 3.Slowly lift your chest off the floor while you keep your hips on the floor. Keep the back of yourhead in line with the curve in your back. Look at the floor while you do this. 4.Stay in this position for 3 5 seconds. 5.Slowly lower your chest and your face to the floor. Contact a doctor if: Your back pain gets a lot worse when you do an exercise. Your back pain does not get better within 2 hours after you exercise. If you have any of these problems, stop doing the exercises. Do not do them again unless your doctor says it is okay. Get help right away if: You have sudden, very bad back pain. If this happens, stop doing the exercises. Do not do them again unless your doctor says it is okay. This information is not intended to replace advice given to you by your health care provider. Make sure you discuss any questions you have with your health care provider. Document Revised: 01/07/2022 Document Reviewed: 01/07/2022 [employer] Patient Education 2023 [employer]. 10/04/2024 11:29:31 Lumbar Strain Lumbar Strain A lumbar strain, which is sometimes called a low-back strain, is a stretch or tear in a muscle or tendons in the lower back (lumbar spine). Tendons are the strong cords of tissue that attach muscle to bone. This type of injury occurs when muscles or tendons are torn or are stretched beyond their limits. Lumbar strains can range from mild to severe. Mild strains may involve stretching a muscle or tendon without tearing it. These may heal in 1 2 weeks. More severe strains involve tearing of muscle fibers or tendons. These will cause more pain and may take 6 8 weeks to heal. What are the causes? This condition may be caused by: Trauma, such as a fall or a hit to the body. Twisting or overstretching the back. This may result from doing activities that take a lot of energy, such as lifting heavy objects. What increases the risk? A lumbar strain is more common in: Athletes. People with obesity. People who do repeated lifting, bending, or other movements that involve their back. What are the signs or symptoms? Symptoms of this condition may include: Sharp or dull pain in the lower back that does not go away. The pain may spread to the buttocks. Stiffness or limited range of motion. Sudden muscle tightening (spasms). How is this diagnosed? This condition may be diagnosed based on: Your symptoms. Your medical history. A physical exam. Imaging tests, such as: ?X-rays. ?MRI. How is this treated? Treatment for this condition may include: Rest. Applying heat and cold to the affected area. Enqh-dfh-nbcthka medicines to help with pain and inflammation, such as NSAIDs. Prescription medicine for pain or to relax the muscles. These may be needed for a short time. Physical therapy exercises to improve movement and strength. Follow these instructions at home: Managing pain, stiffness, and swelling If told, put ice on the injured area during the first 24 hours after your injury. ?Put ice in a plastic bag. ?Place a towel between your skin and the bag. ?Leave the ice on for 20 minutes, 2 3 times a day. If told, apply heat to the affected area as often as told by your health care provider. Use the heat source that your health care provider recommends, such as a moist heat pack or a heating pad. ?Place a towel between your skin and the heat source. ?Leave the heat on for 20 30 minutes. If your skin turns bright red, remove the ice or heat right away to prevent skin damage. The risk of damage is higher if you cannot feel pain, heat, or cold. Activity Rest and return to your normal activities as told by your health care provider. Ask your health care provider what activities are safe for you. Do exercises as told by your health care provider. General instructions Take vggb-bya-xezilig and prescription medicines only as told by your health care provider. Ask your health care provider if the medicine prescribed to you: ?Requires you to avoid driving or using machinery. ?Can cause constipation. You may need to take these actions to prevent or treat constipation: ?Drink enough fluid to keep your urine pale yellow. ?Take ftso-kfi-xxbxfis or prescription medicines. ?Eat foods that are high in fiber, such as beans, whole grains, and fresh fruits and vegetables. ?Limit foods that are high in fat and processed sugars, such as fried or sweet foods. Do not use any products that contain nicotine or tobacco. These products include cigarettes, chewing tobacco, and vaping devices, such as e-cigarettes. If you need help quitting, ask your health careprovider. How is this prevented? To prevent a future low-back injury: Always warm up properly before physical activity or sports. Cool down and stretch after being active. Use correct form when playing sports and lifting heavy objects. Bend your knees before you lift heavy objects. Use good posture when sitting and standing. Stay physically fit and keep a healthy weight. ?Do at least 150 minutes of moderate intensity exercise each week, such as brisk walking or water aerobics. ?Do strength exercises at least 2 times each week. Contact a health care provider if: Your back pain does not improve after several weeks of treatment. Your symptoms get worse. You have a fever. Get help right away if: Your back pain is severe. You are unable to stand or walk. You develop pain in your legs. You have weakness in your buttocks or legs. You have trouble controlling when you urinate or when you have a bowel movement. You have frequent, painful, or bloody urination. This information is not intended to replace advice given to you by your health care provider. Make sure you discuss any questions you have with your health care provider. Document Revised: 05/18/2023 Document Reviewed: 05/18/2023 [employer] Patient Education 2023 [employer]. Follow Up Care 10/04/2024 09:10:10 With:Mindy Morgan Address: [address] [place] [address] [place] [place], [place] [id number] Business (1) When:10/07/2024 11:17:17 Comments:Call Dr for diagnosis based follow up [facility] 11-27-2024 NoteED Patient Education Note Orthopedics Back Exercises These exercises help to make your trunk and back strong. They also help to keep the lower back flexible. Doing these exercises can help to prevent or lessen pain in your lower back. ??? If you have back pain, try to do these exercises 2?3 times each day or as told by your doctor. ??? As you get better, do the exercises once each day. Repeat the exercises more often as told by your doctor. ??? To stop back pain from coming back, do the exercises once each day, or as told by your doctor. Do exercises exactly as told by your doctor. Stop right away if you feel sudden pain or your pain gets worse. Exercises Single knee to chest Do these steps 3?5 times in a row for each le. Lie on your back on a firm bed or the floor with your legs stretched out. 2. Bring one knee to your chest. 3. Grab your knee or thigh with both hands and hold it in place. 4. Pull on your knee until you feel a gentle stretch in your lower back or butt. 5. Keep doing the stretch for 10?30 seconds. 6. Slowly let go of your leg and straighten it. Pelvic tilt Do these steps 5?10 times in a row: 1. Lie on your back on a firm bed or the floor with your legs stretched out. 2. Bend your knees so they point up to the ceiling. Your feet should be flat on the floor. 3. Tighten your lower belly (abdomen) muscles to press your lower back against the floor. This willmake your tailbone point up to the ceiling instead of pointing down to your feet or the floor. 4. Stay in this position for 5?10 seconds while you gently tighten your muscles and breathe evenly. Cat?cow Do these steps until your lower back bends more easily: 1. Get on your hands and knees on a firm bed or the floor. Keep your hands under your shoulders, and keep your knees under your hips. You may put padding under your knees. 2. Let your head hang down toward your chest. Tighten (contract) the muscles in your belly. Point your tailbone toward the floor so your lower back becomes rounded like the back of a cat. 3. Stay in this position for 5 seconds. 4. Slowly lift your head. Let the muscles of your belly relax. Point your tailbone up toward the ceiling so your back forms a sagging arch like the back of a cow. 5. Stay in this position for 5 seconds. Press-ups Do these steps 5?10 times in a row: 1. Lie on your belly (face-down) on a firm bed or the floor. 2. Place your hands near your head, about shoulder-width apart. 3. While you keep your back relaxed and keep your hips on the floor, slowly straighten your arms toraise the top half of your body and lift your shoulders. Do not use your back muscles. You may change where you place your hands to make yourself more comfortable. 4. Stay in this position for 5 seconds. Keep your back relaxed. 5. Slowly return to lying flat on the floor. Bridges Do these steps 10 times in a row: 1. Lie on your back on a firm bed or the floor. 2. Bend your knees so they point up to the ceiling. Your feet should be flat on the floor. Your arms should be flat at your sides, next to your body. 3. Tighten your butt muscles and lift your butt off the floor until your waist is almost as high asyour knees. If you do not feel the muscles working in your butt and the back of your thighs, slide your feet 1?2 inches (2.5?5 cm) farther away from your butt. 4. Stay in this position for 3?5 seconds. 5. Slowly lower your butt to the floor, and let your butt muscles relax. If this exercise is too easy, try doing it with your arms crossed over your chest. Belly crunches Do these steps 5?10 times in a row: 1. Lie on your back on a firm bed or the floor with your legs stretched out. 2. Bend your knees so they point up to the ceiling. Your feet should be flat on the floor. 3. Cross your arms over your chest. 4. Tip your chin a little bit toward your chest, but do not bend your neck. 5. Tighten your belly muscles and slowly raise your chest just enough to lift your shoulder blades a tiny bit off the floor. Avoid raising your body higher than that because it can put too much stress on your lower back. 6. Slowly lower your chest and your head to the floor. Back lifts Do these steps 5?10 times in a row: 1. Lie on your belly (face-down) with your arms at your sides, and rest your forehead on the floor. 2. Tighten the muscles in your legs and your butt. 3. Slowly lift your chest off the floor while you keep your hips on the floor. Keep the back of your head in line with the curve in your back. Look at the floor while you do this. 4. Stay in this position for 3?5 seconds. 5. Slowly lower your chest and your face to the floor. Contact a doctor if: ??? Your back pain gets a lot worse when you do an exercise. ??? Your back pain does not get better within 2 hours after you exercise. If you have any of t (more content not included)...[facility] 09-06-2024 History of Present illness Narrative* Gilda Leong MD - 09/06/2024 1:15 PM EDT Hien Lam 48 y.o. 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 Since last seen she complains of on and off headache on the left side with tingling and numbness which are episodic. She was taken off Fycompa when she had a pacemaker and had seen her tester semiconductor packages since it was not compatible. Since then she has been having some breakthrough seizures at night. I would like to increase the dose of her Topamax to 100 mg twice a day and keep Briviact the way she is taking and is scheduled to have an EEG to look for progression advised him to keep a headache diary food diary and seizure calendar and see her back in 4 months. If she continues to have headache and left-sided pain may need to see her neurosurgeon for follow-up I have discussed the warning signs with her and her fianc which they understood. Due to technical limitations of voice recognition and human error, this note may not accurately reflect the care of the patient. Review of Systems Constitutional: Negative for fatigue, fever and unexpected weight change. HENT: Negative for dental problem, ear pain, hearing loss, sinus pressure, tinnitus and trouble swallowing. Eyes: Negative for photophobia, pain and visual disturbance. Respiratory: Negative for cough, shortness of breath and wheezing. Cardiovascular: Negative for chest pain, palpitations and leg swelling. Gastrointestinal: Negative for abdominal pain, nausea and vomiting. Genitourinary: Negative for difficulty urinating, enuresis and frequency. Musculoskeletal: Negative for arthralgias, back pain, joint swelling, neck pain and neck stiffness. Skin: Negative for pallor and rash. Allergic/Immunologic: Negative for food allergies. Neurological: Positive for seizures, numbness and headaches. Negative for dizziness, tremors, syncope, facial asymmetry, speech difficulty, weakness and light-headedness. Hematological: Negative for adenopathy. Does not bruise/bleed easily. Psychiatric/Behavioral: Negative for agitation, behavioral problems, confusion, hallucinations and sleep disturbance. The patient is not hyperactive. Patient Active Problem List Diagnosis Diabetes mellitus type II, non insulin dependent (Multi) Mixed conductive and sensorineural hearing loss of right ear with restricted hearing of left ear 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 (Multi) Diabetic neuropathy (Multi) Fluid level behind tympanic membrane of right ear History of thyroid nodule Hyperlipidemia LDL goal <100 Hypokalemia Multinodular goiter (nontoxic) Nausea and vomiting PCOS (polycystic ovarian syndrome) Seizure disorder (Multi) Sensorineural hearing loss (SNHL) of left ear with restricted hearing of right ear Syringomyelia (Multi) Unilateral headache Vitamin D deficiency Bradycardia Obesity Neuropathy Sinus node dysfunction (Multi) Syncope and collapse Vitamin B12 deficiency Current every day smoker Other emphysema (Multi) Abnormal loss of weight Acid reflux Anxiety Aortoiliac occlusive disease (Multi) Atherosclerosis of 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 Constipation, unspecified Cramps, extremity Depression Disturbance of skin sensation Drug abuse (Multi) DUB (dysfunctional uterine bleeding) Epigastric pain Genital HSV H/O ETOH abuse Irregular menses ITB syndrome Melena Menorrhagia АННА on CPAP Sleep apnea Rectal bleed Thyroid nodule Tubular adenoma of colon HTN (hypertension), benign Diabetes mellitus (Multi) Diabetes (Multi) High cholesterol Hypercholesterolemia Asymmetric SNHL (sensorineural hearing loss) Morbid obesity (Multi) Chronic obstructive pulmonary disease (Multi) COPD with asthma (Multi) Epilepsy Seizure (Multi) Headache disorder BMI 32.0-32.9,adult Wide-complex tachycardia Palpitations Night sweats Chest pain Shortness of breath Status post placement of implantable loop recorder NSTEMI (non-ST elevated myocardial infarction) (Multi) Carotid bruit Bipolar 2 disorder, major depressive episode (Multi) NSVT (nonsustained ventricular tachycardia) (Multi) Sick sinus syndrome (Multi) Dizziness Cyst of pituitary gland (Multi) Liver failure (Multi) Benign essential hypertension 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) Past Medical History: Diagnosis Date Arrhythmia Asthma Current smoker Diabetes mellitus (Multi) Disease of thyroid gland History of Chiari malformation 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 Hyperlipidemia Hypertension OCD (obsessive compulsive disorder) Other disorders of lung Lung trouble Personal history of other diseases of the digestive system History of gastroesophageal reflux (GERD) Personal history of other diseases of the musculoskeletal system and connective tissue History of arthritis Personal history of other diseases of the nervous system and sense organs History of sleep apnea Personal history of other diseases of the respiratory system History of chronic obstructive lung disease Personal history of other diseases of the respiratory system History of bronchitis Personal history of other diseases of the respiratory system History of asthma Personal history of other endocrine, nutritional and metabolic disease History of diabetes mellitus Personal history of other endocrine, nutritional and metabolic disease History of thyroid disorder Personal history of other mental and behavioral disorders History of depression Personal history of other mental and behavioral disorders History of mental disorder Personal history of other specified conditions History of snoring Past Surgical History: Procedure Laterality Date BRAIN SURGERY CARDIAC ELECTROPHYSIOLOGY PROCEDURE Left 12/10/2023 Procedure: Loop Insertion; Surgeon: Geovany Ventura MD; Location: [facility]; Service: Electrophysiology; Laterality: Left; CARDIAC ELECTROPHYSIOLOGY PROCEDURE Left 05/02/2024 Procedure: Loop Recorder Explant; Surgeon: Geovany Ventura MD; Location: [facility]; Service: Electrophysiology; Laterality: Left; CARDIAC ELECTROPHYSIOLOGY PROCEDURE Left 05/02/2024 Procedure: PPM IMPLANT DUAL; Surgeon: Geovany Ventrua MD; Location: [facility]; Service: Electrophysiology; Laterality: Left; GALLBLADDER SURGERY 10/14/2017 Gallbladder Surgery TONSILLECTOMY 10/14/2017 Tonsillectomy With Adenoidectomy reports that she has been smoking cigarettes. She has never used smokeless tobacco. She reports that she does not currently use alcohol. She reports current drug use. Drug: Marijuana. BP 114/76 (BP Location: Left arm, Patient Position: Sitting, BP Cuff Size: Large adult) Pulse 68 Ht 1.657 m (5' 5.25 ) Wt 95.1 kg (209 lb 9.6 oz) BMI 34.61 kg/m OBJECTIVE Physical Exam/Neurological Exam Constitutional: General appearance: no acute distress . Patient has quite a few coarse hairs and onthe face probably from hirsutism. Auscultation of Heart: Regular rate and rhythm, no murmurs, normal S1 and S2. Carotid Arteries: Intact without any bruits. Neck is supple. No lymph adenopathy. Peripheral Vascular Exam: Pulses 1 +and equal in all extremities. No swelling, varicosities in lower extremities,, edema or tenderness to palpations. Abdomen is soft, nondistended. No organomegaly. Mental status: The patient was in no distress, alert, interactive and cooperative. Affect is appropriate. Orientation: oriented to person, oriented to place and oriented to time. Memory: recent memory intact and remote memory intact. Attention: normal attention span and normal concentrating ability. Language: normal comprehension and no difficulty naming common objects. Fund of knowledge: Patient displays adequate knowledge of current events, adequate fund of knowledge regarding past history and adequate fund of knowledge regarding vocabulary. Eyes: The ophthalmoscopic examination was normal. The fundi are visualized with normal disc marginsand without. Cranial nerve II: Visual pool full to confrontation. Cranial nerves III, IV, and : Pupils round, equally reactive to light; no ptosis. EOMs intact. Nonystagmus. Cranial Nerve V: Facial sensation intact bilaterally. Cranial nerve VII: Normal and symmetric facial strength. Cranial nerve VIII: Hearing is impaired in the right ear but normal in the left ear. Cranial nerves IX and X: Palate elevates symmetrically. Cranial nerve XI: Shoulder shrug and neck rotation strength are intact. Cranial nerve XII: Tongue midline with normal strength. Motor: Motor exam was normal. Muscle bulk was normal in both upper and lower extremities. Muscle tone was normal in both upper and lower extremities. Muscle strength was 5/5 throughout. no abnormal or adventitious movements were present. Deep Tendon Reflexes: left biceps 2+ , right biceps 2+, left triceps 2+, right triceps 2+, left brachioradialis 2+, right brachioradialis 2+, left patella 2+, right patella 2+, left ankle jerk 2+, right ankle jerk 2+ Plantar Reflex: Toes downgoing to plantar stimulation on the left. Toes downgoing to plantar stimulation on the right. Sensory Exam: Impaired to light touch and pinprick both in the hands and legs in the glove and stocking type. Coordination: There is no limb dystaxia and rapid alternating movements are intact. Gait: Gait is ataxic but she was able to ambulate without any assistance. ASSESSMENT/PLAN Diagnoses and all orders for this visit: Partial symptomatic epilepsy with complex partial seizures, intractable, without status epilepticus(Multi) - topiramate (Topamax) 50 mg tablet; Take 2 tablets (100 mg) by mouth 2 times a day. - brivaracetam (Briviact) 100 mg tablet tablet; Take 2 tablets (200 mg) by mouth 2 times a day. 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 (Multi) Syringomyelia (Multi) Neuropathy Migraine without aura and without status migrainosus, not intractable Gilda Leong MD 09/06/2024 2:04 PM documented in this [facility] Work Phone: [phone]) 875-102710-02-2024 History of Present illness Narrative* Geovany Ventura MD - 08/09/2024 9:45 AM EDT CARDIOLOGY OFFICE VISIT CHIEF COMPLAINT Chief Complaint Patient presents with Follow-up Pt is here today following up after 6 months with device check HISTORY OF PRESENT ILLNESS HPI 48-year-old female with a past medical history of cystic compulsive disorder and also history of Chiari malformation with brain surgery done approximately a year ago. Patient has been followed by gynecology service since June last year after patient was admitted to outside hospital. 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 Then she got some radiation into the right arm. Then she started noticing right arm and right lower extremity weakness and she went home with those symptoms. At home her blood pressure systolic was found to be in the 80s with heart rates in the 40s. She came to emergency departmentfor an evaluation. During telemetry patient states that her heart rate was always bradycardic. She was referred for cardiology for an evaluation. She had an a stress test and echocardiogram and also a Holter monitor that were unremarkable. Echocardiogram in December 2022 shows left ventricular ejection fraction of 60 to 65% with no significant valvular normalities. Holter monitor in October 2022 shows underlying rhythm of sinus rhythmwith minimum heart rate 45 bpm maximal heart rate of 129 beats per hours heart of 64 bpm. There were brief episodes of nonsustained supraventricular tachycardia up to 4 beats of duration. Asymptomatic. No evidence of heart block or atrial fibrillation. Had a stress test in December 2022 shows no evidence of ischemia with a left ventricular ejection fraction of 69%. Due to persisting of symptoms of palpitations chest discomfort and sometimes diaphoresis an event monitor was ordered in March 2023. Event monitor shows underlying rhythm was sinus rhythm. There were 23 triggered events with symptoms that they were not specified. 1 of these episodes were related withwide-complex tachycardia total of 9 beats that occurred on February 22, 2023 at 1 in the morning. rateof 173 bpm. Based on the results of the event monitor a cardiac MRI was done that shows left ventricular ejection fraction of 62% with delayed enhancement normal. No significant valvular normalities with mild asymmetric left ventricular hypertrophy. Patient with implantation of a loop recorder in December 10, 2023 with no complications. Loop recorder interrogation has been showing episodes of sinus bradycardia with pauses up to 5 seconds of duration multiple times for the last 2 months. These episodes happen between afternoon-early evening. Patient underwent implantation of a dual-chamber pacemaker in April 2024 with no complications. Looprecorder was removed. Since then patient states that she feels much better. She denies any symptoms. EKG performed today shows atrial paced rhythm at rate of 62 bpm QRS duration 88 ms QT corrected 460ms. Rhythm strip shows the same pattern. Patient had a device interrogation today at the device clinic and it shows a dual-chamber pacemakerMedtronic with battery longevity 14 years. No evidence of atrial fibrillation and 1 brief episode of nonsustained ventricular tachycardia. 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 Hyperlipidemia Hypertension OCD (obsessive compulsive disorder) Other disorders of lung Lung trouble Personal history of other diseases of the digestive system History of gastroesophageal reflux (GERD) Personal history of other diseases of the musculoskeletal system and connective tissue History of arthritis Personal history of other diseases of the nervous system and sense organs History of sleep apnea Personal history of other diseases of the respiratory system History of chronic obstructive lung disease Personal history of other diseases of the respiratory system History of bronchitis Personal history of other diseases of the respiratory system History of asthma Personal history of other endocrine, nutritional and metabolic disease History of diabetes mellitus Personal history of other endocrine, nutritional and metabolic disease History of thyroid disorder Personal history of other mental and behavioral disorders History of depression Personal history of other mental and behavioral disorders History of mental disorder Personal history of other specified conditions History of snoring Social History Social History Tobacco Use Smoking status: Every Day Current packs/day: 0.50 Types: Cigarettes Smokeless tobacco: Never Vaping Use Vaping status: Never Used Substance Use Topics Alcohol use: Not Currently Comment: quit 2007 Drug use: Yes Types: Marijuana Comment: 3 times per week Family History Family History Problem Relation Name Age of Onset Hypertension Mother Arthritis Mother No Known Problems Father Allergies: Allergies Allergen Reactions Fish Containing Products Anaphylaxis Iodinated Contrast Media Anaphylaxis Duloxetine Unknown Pregabalin Unknown Outpatient Medications: Current Outpatient Medications Medication Instructions albuterol (Ventolin HFA) 90 mcg/actuation inhaler 2 puffs, inhalation, Every 6 hours PRN aspirin 81 mg, oral, Daily atorvastatin (LIPITOR) 80 mg, oral, Nightly blood sugar diagnostic (pluriSelect Verio test strips) strip Test blood sugars 4 times a day as directed brivaracetam (BRIVIACT) 200 mg, oral, 2 times daily buPROPion SR (Wellbutrin SR) 150 mg 12 hr tablet Take 1 tablet (150 mg) by mouth 3 times a day. cholecalciferol (VITAMIN D-3) 2,000 Units, oral, Daily, Once weekly on wednesday clotrimazole (Lotrimin) 1 % cream 1 Application, Topical, As needed diclofenac sodium (Voltaren) 1 % gel gel APPLY 4 INCHES OF MEDICATION TO EACH KNEE EVERY 4 HOURS ASNEEDED dulaglutide (TRULICITY) 0.75 mg, subcutaneous, Once Weekly ergocalciferol (VITAMIN D-2) 50 mcg, oral, Daily ezetimibe (ZETIA) 10 mg, oral, Daily fenofibrate (TRICOR) 145 mg, oral, Daily gabapentin (NEURONTIN) 1,200 mg, oral, 3 times daily ibuprofen 800 mg, oral, Every 8 hours PRN lamoTRIgine (LAMICTAL) 200 mg, oral, Daily lancets ([employer] Delica Plus Lancet) 30 gauge misc Check BG lubiprostone (AMITIZA) 24 mcg, oral, 2 times daily (morning and late afternoon), As needed metoprolol tartrate (LOPRESSOR) 25 mg, oral, 2 times daily montelukast (SINGULAIR) 10 mg, oral, Nightly ondansetron (ZOFRAN) 8 mg, oral, Every 8 hours PRN pantoprazole (ProtoNix) 40 mg EC tablet 1 tablet, oral, 2 times daily sucralfate (CARAFATE) 1 g, oral, 4 times daily before meals and nightly, As needed topiramate (TOPAMAX) 50 mg, oral, 2 times daily umeclidinium-vilanteroL (Anoro Ellipta) 62.5-25 mcg/actuation blister with device 1 puff, inhalation, Daily valACYclovir (VALTREX) 500 mg, oral, Daily REVIEW OF SYSTEMS Review of Systems Cardiovascular: Negative for chest pain, dyspnea on exertion and palpitations. All other systems reviewed and are negative. VITALS Vitals: 08/09/24 1016 BP: 116/72 Pulse: 62 PHYSICAL EXAM Constitutional: General: Awake. Appearance: Normal and healthy appearance. Well-developed and not in distress. Obese. Neck: Vascular: No JVR. JVD normal. Pulmonary: Effort: Pulmonary effort is normal. Breath sounds: Normal breath sounds. No wheezing. No rhonchi. No rales. Chest: Chest wall: Not tender to palpatation. Comments: Left sided device pocket- healed and well approximated. No swelling or hematoma Cardiovascular: PMI at left midclavicular line. Normal rate. Regular rhythm. Normal S1. Normal S2. Murmurs: There is no murmur. No gallop. No click. No rub. Pulses: Intact distal pulses. Edema: Peripheral edema absent. Abdominal: Tenderness: There is no abdominal tenderness. Musculoskeletal: Normal range of motion. General: No tenderness. Skin: General: Skin is warm and dry. Neurological: General: No focal deficit present. Mental Status: Alert and oriented to person, place and time. ASSESSMENT AND PLAN Clinical impression 1. Evidence of bradycardia during admission in outside hospital. 2. Palpitations 3. Evidence of nonsustained ventricular tachycardia on event monitor 4. Normal left ventricular function per echocardiogram in 2022 and cardiac MRI in 2022 5. No evidence of ischemia per stress test in 2022 6. 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 Obsessive-compulsive disorder 8. Status post loop recorder implantation in December 2023 with no complications 9. Evidence of pauses that may be related with near syncope. This was discussed with patient and family members during this office visit. Status post loop recorder removal and implantation of a dual-chamber pacemaker in April 19, 2024 with no complications Plan recommendations Patient is doing well from the electrophysiology standpoint. Symptoms have improved significantly. Continue with current medical therapy. Continue with beta-oswald therapy. Follow my office every 6 months or sooner if needed. Follow device clinic as scheduled. Risk factor modification and lifestyle modification discussed with patient. Diet , exercise and hydration discussed with patient. I have personally review with patient during this office visit, laboratory data, echocardiogram results, stress test results, Holter-event monitor results prior and after the last electrophysiology visit. All questions has been answered. Please excuse any errors in grammar or translation related to this dictation. Voice recognition software was utilized to prepare this document. [facility] Work Phone: 1(501) 549-500110-02-2024 Instructions* Patient Instructions* Tereza Liu RN - 08/09/2024 9:45 AM EDT Continue same medications/treatment. Patient educated on proper medication use. Patient educated on risk factor modification. Please bring any lab results from other providers/physicians to your next appointment. Please bring all medicines, vitamins, and herbal supplements with you when you come to the office. Prescriptions will not be filled unless you are compliant with your follow up appointments or have a follow up appointment scheduled as per instruction of your physician. Refills should be requested at the time of your visit. Follow up with Dr. Ventura in 6 months with device check Continue remote checks at 3 and 9 months Tereza Miranda RN, AM SCRIBING FOR, AND IN THE PRESENCE OF DR. GEOVANY VENTURA MD documented in this [facility] Work Phone: [phone]) 222-645009-18-2024 Hospital Discharge instructions Patient Education 07/26/2024 17:40:06 Rotator Cuff Tendinitis Rotator Cuff Tendinitis Rotator cuff tendinitis is inflammation of the tendons in the rotator cuff. Tendons are tough, cord-like bands that connect muscle to bone. The rotator cuff includes all of the muscles and tendons that connect the arm to the shoulder. The rotator cuff holds the head of the humerus, or the upper armbone, in the cup of the shoulder blade (scapula). This condition can lead to a long-term (chronic) tear. The tear may be partial or complete. What are the causes? This condition is usually caused by overusing the rotator cuff. What increases the risk? This condition is more likely to develop in athletes and workers who frequently use their shoulder or reach over their heads. This can include activities such as: Tennis. Baseball or softball. Swimming. Construction work. Painting. What are the signs or symptoms? Symptoms of this condition include: Pain that spreads (radiates) from the shoulder to the upper arm. Swelling and tenderness in front of the shoulder. Pain when reaching, pulling, or lifting the arm above the head. Pain when lowering the arm from above the head. Minor pain in the shoulder when resting. Increased pain in the shoulder at night. Difficulty placing the arm behind the back. How is this diagnosed? This condition is diagnosed with a physical exam and medical history. Tests may also be done, including: X-rays. CT. MRI. Ultrasound. How is this treated? Treatment depends on the severity of the condition. In less severe cases, treatment may include: Rest. This may be done with a sling that holds the shoulder still (immobilization). Your health care provider may also recommend avoiding activities that involve lifting your arm over your head. Icing the shoulder. Anti-inflammatory medicines, such as aspirin or ibuprofen. In more severe cases, treatment may include: Physical therapy. Steroid injections. Surgery. Follow these instructions at home: If you have a removable sling: Wear the sling as told by your provider. Remove it only as told by your provider. Check the skin around the sling every day. Tell your provider about any concerns. Loosen the sling if your fingers tingle, become numb, or turn cold or blue. Keep the sling clean and dry. If the sling is not waterproof: ?Do not let it get wet. ?Remove it as told by your provider when you take a bath or shower. Managing pain, stiffness, and swelling If told, put ice on the injured area. ?If you have a removable sling, remove it as told by your provider. ?Put ice in a plastic bag. ?Place a towel between your skin and the bag. ?Leave the ice on for 20 minutes, 2 3 times a day. ?If your skin turns bright red, remove the ice right away to prevent skin damage. The risk of damage is higher if you cannot feel pain, heat, or cold. Move your fingers often to reduce stiffness and swelling. Raise (elevate) the injured area above the level of your heart while you are sitting or lying down. ?Find a comfortable sleeping position, or sleep in a recliner, if available. Activity Rest your shoulder as told by your provider. Ask your provider when it is safe to drive if you have a sling on your arm. Return to your normal activities as told by your provider. Ask your provider what activities are safe for you. Do any exercises or stretches as told by your provider or physical therapist. If you do repetitive overhead tasks, take small breaks in between and include stretching exercises as told by your provider. General instructions Do not use any products that contain nicotine or tobacco. These products include cigarettes, chewing tobacco, and vaping devices, such as e-cigarettes. These can delay healing. If you need help quitting, ask your provider. Take [id number] and prescription medicines only as told by your provider. Contact a health care provider if: Your pain gets worse. You have new pain in your arm, hands, or fingers. Your pain is not relieved with medicine or does not get better after 6 weeks of treatment. You have crackling sensations when moving your shoulder in certain directions. You hear a snapping sound after using your shoulder, followed by severe pain and weakness. Your arm, hand, or fingers are numb or tingling. Get help right away if: Your arm, hand, or fingers are swollen, painful, or they turn white or blue. This information is not intended to replace advice given to you by your health care provider. Make sure you discuss any questions you have with your health care provider. Document Revised: 06/23/2023 Document Reviewed: 06/09/2023 [employer] Patient Education 2023 [employer]. Follow Up Care 07/26/2024 16:08:18 With:Charissa Seth Address: [address] [place], [place] [id number] Business (1) When:07/29/2024 17:32:04 With:Mindy Morgan Address: [address] [place] [phone]- Business (1) When:Within 3 Day(s) [facility] 09-18-2024 NoteED Patient Education Note Orthopedics Rotator Cuff Tendinitis Rotator cuff tendinitis is inflammation of the tendons in the rotator cuff. Tendons are tough, cord-like bands that connect muscle to bone. The rotator cuff includes all of the muscles and tendons that connect the arm to the shoulder. The rotator cuff holds the head of the humerus, or the upper armbone, in the cup of the shoulder blade (scapula). This condition can lead to a long-term (chronic) tear. The tear may be partial or complete. What are the causes? This condition is usually caused by overusing the rotator cuff. What increases the risk? This condition is more likely to develop in athletes and workers who frequently use their shoulder or reach over their heads. This can include activities such as: ? Tennis. ? Baseball or softball. ? Swimming. ? Construction work. ? Painting. What are the signs or symptoms? Symptoms of this condition include: ? Pain that spreads (radiates) from the shoulder to the upper arm. ? Swelling and tenderness in front of the shoulder. ? Pain when reaching, pulling, or lifting the arm above the head. ? Pain when lowering the arm from above the head. ? Minor pain in the shoulder when resting. ? Increased pain in the shoulder at night. ? Difficulty placing the arm behind the back. How is this diagnosed? This condition is diagnosed with a physical exam and medical history. Tests may also be done, including: ? X-rays. ? CT. ? MRI. ? Ultrasound. How is this treated? Treatment depends on the severity of the condition. In less severe cases, treatment may include: ? Rest. This may be done with a sling that holds the shoulder still (immobilization). Your health care provider may also recommend avoiding activities that involve lifting your arm over your head. ? Icing the shoulder. ? Anti-inflammatory medicines, such as aspirin or ibuprofen. In more severe cases, treatment may include: ? Physical therapy. ? Steroid injections. ? Surgery. Follow these instructions at home: If you have a removable sling: ? Wear the sling as told by your provider. Remove it only as told by your provider. ? Check the skin around the sling every day. Tell your provider about any concerns. ? Loosen the sling if your fingers tingle, become numb, or turn cold or blue. ? Keep the sling clean and dry. ? If the sling is not waterproof: ? Do not let it get wet. ? Remove it as told by your provider when you take a bath or shower. Managing pain, stiffness, and swelling ? If told, put ice on the injured area. ? If you have a removable sling, remove it as told by your provider. ? Put ice in a plastic bag. ? Place a towel between your skin and the bag. ? Leave the ice on for 20 minutes, 2?3 times a day. ? If your skin turns bright red, remove the ice right away to prevent skin damage. The risk of damage is higher if you cannot feel pain, heat, or cold. ? Move your fingers often to reduce stiffness and swelling. ? Raise (elevate) the injured area above the level of your heart while you are sitting or lying down. ? Find a comfortable sleeping position, or sleep in a recliner, if available. Activity ? Rest your shoulder as told by your provider. ? Ask your provider when it is safe to drive if you have a sling on your arm. ? Return to your normal activities as told by your provider. Ask your provider what activities are safe for you. ? Do any exercises or stretches as told by your provider or physical therapist. ? If you do repetitive overhead tasks, take small breaks in between and include stretching exercises as told by your provider. General instructions ? Do not use any products that contain nicotine or tobacco. These products include cigarettes, chewing tobacco, and vaping devices, such as e-cigarettes. These can delay healing. If you need help quitting, ask your provider. ? Take [id number] and prescription medicines only as told by your provider. Contact a health care provider if: ? Your pain gets worse. ? You have new pain in your arm, hands, or fingers. ? Your pain is not relieved with medicine or does not get better after 6 weeks of treatment. ? You have crackling sensations when moving your shoulder in certain directions. ? You hear a snapping sound after using your shoulder, followed by severe pain and weakness. ? Your arm, hand, or fingers are numb or tingling. Get help right away if: ? Your arm, hand, or fingers are swollen, painful, or they turn white or blue. This information is not intended to replace advice given to you by your health care provider. Make sure you discuss any questions you have with your health care provider. Document Revised: 06/23/2023 Document Reviewed: 06/09/2023 [employer] Patient Education ? 2023 [employer].[facility] 06-29-2024 Evaluation + Plan note* Assessment & Plan Note - Rico Coy MD - 06/29/2024 1:00 PM EDTAssociated Problem(s): Diabetes mellitus type II, non insulin dependent (Multi) Orders: Referral to Endocrinology Testosterone,Free and Total; Future Adrenocorticotropic Hormone (ACTH); Future Cortisol; Future DHEA-sulfate; Future TSH with reflex to Free T4 if abnormal; Future Prolactin; Future Renal Function Panel; Future Hemoglobin A1C; Future Lipid Panel; Future Albumin-Creatinine Ratio, Urine Random; Future Estradiol; Future FSH & LH; Future lancets (OneTouch Delica Plus Lancet) 30 gauge misc; Check BG [facility] Work Phone: 1([phone]) 252-938208-22-2024 Evaluation + Plan note* Assessment & Plan Note - Rico Coy MD - 06/29/2024 1:00 PM EDTAssociated Problem(s): Multinodular goiter (nontoxic) Orders: Referral to Endocrinology TSH with reflex to Free T4 if abnormal; Future [facility] Work Phone: 1([phone]) 370-741608-22-2024 Evaluation + Plan note* Assessment & Plan Note - Rico Coy MD - 06/29/2024 1:00 PM EDTAssociated Problem(s): Morbid obesity (Multi) Orders: Referral to Endocrinology Testosterone,Free and Total; Future Adrenocorticotropic Hormone (ACTH); Future Cortisol; Future DHEA-sulfate; Future Estradiol; Future FSH & LH; Future [facility] Work Phone: 1(840) 944-317108-22-2024 Evaluation + Plan note* Assessment & Plan Note - Rico Coy MD - 06/29/2024 1:00 PM EDTAssociated Problem(s): Vitamin D deficiency Orders: Vitamin D 25-Hydroxy,Total (for eval of Vitamin D levels); Future [facility] Work Phone: 1([phone]) 823-667808-22-2024 History of Present illness Narrative* Rico Coy MD - 06/29/2024 1:00 PM EDT Patient coming in for follow up for T2DM Subjective Hien Lam is a 48 y.o. female who presents for follow up for Type 2 diabetes mellitus. Lab Results Component Value Date HGBA1C 5.6 09/07/2023 Hien Lam is a 48 y.o. female who presents for follow-up of Type 2 diabetes mellitus. The initial diagnosis of diabetes was made over 10 years ago . The patient does have a known family history of diabetes. Current meds: Trulicity 0.75 mg once weekly Was 420lbs now 197lbs. Checked BG random and its always in the normal range. Checks it 5 times a week 120s Per patient sometimes 70s. 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 Per records saw Dr. Howe and per notes24 hour urine showed cortisol of 19. Stopped Korlym Oct 2020 Chronic pancreatitis? 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 The patient is on an RYLEY inhibitor or angiotensin II receptor oswald. The patient has not been previously hospitalized due to diabetic ketoacidosis. The patient is currently checking the blood glucose 2+ times per day. Patient is using: glucometer Hypoglycemia frequency: n/a Hypoglycemia awareness: Yes Exercise: intermittently Meal panning: She is using avoidance of concentrated sweets. Getting set up for L knee surgery and aortic stent placement. Hopes to find a new plastic surgeon who accepts her insurance for pannus skin reduction. Foot Exam: Not following with podiatry. On Gabapentin Eye Exam: was seen last aug 2023 Lipid Panel: atorvastatin 80 mg and fenofibrate LDL: 96 and T Urine Albumin: UACR in Aug 2023 18.3. Was previously on lisinopril Per patient she can grow a gleason She shaves her face daily Still smoking now cigars Last GC injection in her left knee 5-6 months ago Review of Systems all pertinent systems reviewed and are otherwise negative Objective Visit Vitals BP 119/80 (BP Location: Left arm, Patient Position: Sitting, BP Cuff Size: Adult) Pulse 85 Temp 36.1 C (97 F) Wt 89.5 kg (197 lb 6.4 oz) LMP (LMP Unknown) BMI 32.85 kg/m OB Status Ablation Smoking Status Every Day BSA 2.03 m Physical Exam Constitutional: General: She is not in acute distress. Appearance: Normal appearance. She is obese. Eyes: Extraocular Movements: Extraocular movements intact. Pupils: Pupils are equal, round, and reactive to light. Neck: Comments: Mild buffalo hump Cardiovascular: Rate and Rhythm: Normal rate and regular rhythm. Pulmonary: Effort: Pulmonary effort is normal. No respiratory distress. Breath sounds: Normal breath sounds. Abdominal: General: Bowel sounds are normal. Palpations: Abdomen is soft. Tenderness: There is no abdominal tenderness. Skin: Coloration: Skin is not jaundiced or pale. Findings: No erythema or rash. Neurological: General: No focal deficit present. Mental Status: She is alert and oriented to person, place, and time. Deep Tendon Reflexes: Reflexes normal. Psychiatric: Mood and Affect: Mood normal. Behavior: Behavior normal. Lab Review Glucose (mg/dL) Date Value 05/02/2024 142 (H) 12/10/2023 126 (H) 09/07/2023 111 (H) Hemoglobin A1C (%) Date Value 09/07/2023 5.6 02/09/2023 5.9 (A) 11/20/2021 8.5 (A) 04/22/2021 7.5 Bicarbonate (mmol/L) Date Value 05/02/2024 20 (L) 12/10/2023 21 09/07/2023 18 (L) Urea Nitrogen (mg/dL) Date Value 05/02/2024 13 12/10/2023 15 09/07/2023 15 Creatinine (mg/dL) Date Value 05/02/2024 0.64 12/10/2023 0.79 09/07/2023 0.70 Lab Results Component Value Date CHOL 161 09/07/2023 CHOL 292 (H) 07/13/2019 Lab Results Component Value Date HDL 33.1 09/07/2023 HDL 18.7 (A) 07/13/2019 Lab Results Component Value Date LDLCALC 96 09/07/2023 Lab Results Component Value Date TRIG 161 (H) 09/07/2023 TRIG 489 (H) 07/13/2019 No components found for: CHOLHDL Lab Results Component Value Date TSH 0.84 09/07/2023 No results found for: ROSALINDA ARGUELLO Health Maintenance: Assessment/Plan Hien Lam is a 48 y.o. female who presents for follow up for Type 2 diabetes mellitus. Lab Results Component Value Date HGBA1C 5.6 09/07/2023 Hien Lam is a 48 y.o. female who presents for follow-up of Type 2 diabetes mellitus. The initial diagnosis of diabetes was made over 10 years ago . The patient does have a known family history of diabetes. Current meds: Trulicity 0.75 mg once weekly Was 420lbs now 197lbs. Checked BG random and its always in the normal range. Checks it 5 times a week 120s Per patient sometimes 70s. 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 Per records saw Dr. Howe and per notes24 hour urine showed cortisol of 19. Stopped Korlym Oct 2020 Chronic pancreatitis? 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 Hopes to find a new plastic surgeon who accepts her insurance for pannus skin reduction. Foot Exam: Not following with podiatry. On Gabapentin Eye Exam: was seen last aug 2023 Lipid Panel: atorvastatin 80 mg and fenofibrate LDL: 96 and T Urine Albumin: UACR in Aug 2023 18.3. Was previously on lisinopril Per patient she can grow a gleason She shaves her face daily Still smoking now cigars Last GC injection in her left knee 5-6 months ago Plan: Continue Trulicity Continue to check BG Bring glucometer next time Follow with ophthalmology Continue Gabapentin Blood work today We will decide on Vitamin D dose accordingly RTC in 6 months Assessment & Plan Diabetes mellitus type II, non insulin dependent (Multi) Orders: Referral to Endocrinology Testosterone,Free and Total; Future Adrenocorticotropic Hormone (ACTH); Future Cortisol; Future DHEA-sulfate; Future TSH with reflex to Free T4 if abnormal; Future Prolactin; Future Renal Function Panel; Future Hemoglobin A1C; Future Lipid Panel; Future Albumin-Creatinine Ratio, Urine Random; Future Estradiol; Future FSH & LH; Future lancets (OneTouch Delica Plus Lancet) 30 gauge misc; Check BG Multinodular goiter (nontoxic) Orders: Referral to Endocrinology TSH with reflex to Free T4 if abnormal; Future Morbid obesity (Multi) Orders: Referral to Endocrinology Testosterone,Free and Total; Future Adrenocorticotropic Hormone (ACTH); Future Cortisol; Future DHEA-sulfate; Future Estradiol; Future FSH & LH; Future Vitamin D deficiency Orders: Vitamin D 25-Hydroxy,Total (for eval of Vitamin D levels); Future documented in this [facility] Work Phone: [phone]) 729-480408-22-2024 Instructions* Patient Instructions* Rico Coy MD - 06/29/2024 1:00 PM EDT Continue Trulicity Continue to check BG Bring glucometer next time Follow with ophthalmology Continue Gabapentin Blood work today We will decide on Vitamin D dose accordingly RTC in 6 months documented in this [facility] Work Phone: 1(443) 466-288308-22-2024 Miscellaneous Notes* Assessment & Plan Note - Rico Coy MD - 06/29/2024 1:00 PM EDTAssociated Problem(s): Diabetes mellitus type II, non insulin dependent (Multi) Orders: Referral to Endocrinology Testosterone,Free and Total; Future Adrenocorticotropic Hormone (ACTH); Future Cortisol; Future DHEA-sulfate; Future TSH with reflex to Free T4 if abnormal; Future Prolactin; Future Renal Function Panel; Future Hemoglobin A1C; Future Lipid Panel; Future Albumin-Creatinine Ratio, Urine Random; Future Estradiol; Future FSH & LH; Future lancets (OneTouch Delica Plus Lancet) 30 gauge misc; Check BG * Assessment & Plan Note - Rico Coy MD - 06/29/2024 1:00 PM EDTAssociated Problem(s): Multinodular goiter (nontoxic) Orders: Referral to Endocrinology TSH with reflex to Free T4 if abnormal; Future * Assessment & Plan Note - Rico Coy MD - 06/29/2024 1:00 PM EDTAssociated Problem(s): Morbid obesity (Multi) Orders: Referral to Endocrinology Testosterone,Free and Total; Future Adrenocorticotropic Hormone (ACTH); Future Cortisol; Future DHEA-sulfate; Future Estradiol; Future FSH & LH; Future * Assessment & Plan Note - Rico Coy MD - 06/29/2024 1:00 PM EDTAssociated Problem(s): Vitamin D deficiency Orders: Vitamin D 25-Hydroxy,Total (for eval of Vitamin D levels); Future documented in this [facility] Work Phone: [phone]) 816-588606-27-2024 History of Present illness Narrative* Jayce Duke DO - 05/04/2024 1:15 PM EDT Impression: 1. History of tympanostomy tube placement Recommendations/Plan: I reassured the patient that her T-tube is functioning normally and there is no evidence of any infectious drainage. She will continue to keep all water out of that right ear and if she sees any drainage, she will let us know and we will restart Ciprodex drops. Otherwise I will see her back in the office in 6 months and recheck her ear This electronic medical record note was created with the use of voice recognition software. Despite proofreading, typographical or grammatical errors may be present that could affect meaning of content Subjective: Hien returns to the office today as a checkup on her ears. She denies any drainage from the right ear. She has been keeping all water out of her ears. No upper respiratory complaints fever or chills. Objective: There were no vitals taken for this visit. Current Outpatient Medications Medication Instructions albuterol (Ventolin HFA) 90 mcg/actuation inhaler 2 puffs, inhalation, Every 6 hours PRN aspirin 81 mg, oral, Daily atorvastatin (LIPITOR) 80 mg, oral, Nightly blood sugar diagnostic (YongCheTouch Verio test strips) strip Test blood sugars 4 times a day as directed brivaracetam (BRIVIACT) 200 mg, oral, 2 times daily buPROPion SR (Wellbutrin SR) 150 mg 12 hr tablet cholecalciferol (Vitamin D-3) 125 MCG (5000 UT) capsule 1 capsule, oral, Daily, Once weekly on wednesday clotrimazole (Lotrimin) 1 % cream 1 Application, Topical, 2 times daily diclofenac sodium (Voltaren) 1 % gel gel APPLY 4 INCHES OF MEDICATION TO EACH KNEE EVERY 4 HOURS ASNEEDED dulaglutide (TRULICITY) 0.75 mg, subcutaneous, Once Weekly ergocalciferol (VITAMIN D-2) 1,250 mcg, oral, Once Weekly Fycompa 4 mg, oral, Nightly gabapentin (NEURONTIN) 1,200 mg, oral, 3 times daily ibuprofen 800 mg, oral, Every 8 hours PRN lamoTRIgine (LAMICTAL) 200 mg, oral, Daily lisinopril 5 mg, oral, Daily metoprolol tartrate (LOPRESSOR) 25 mg, oral, 2 times daily montelukast (SINGULAIR) 10 mg, oral, Nightly ondansetron (ZOFRAN) 8 mg, oral, Every 8 hours PRN pantoprazole (ProtoNix) 40 mg EC tablet 1 tablet, oral, 2 times daily topiramate (TOPAMAX) 50 mg, oral, 2 times daily umeclidinium-vilanteroL (Anoro Ellipta) 62.5-25 mcg/actuation blister with device 1 puff, inhalation, Daily valACYclovir (VALTREX) 500 mg, oral, Daily Allergies Allergen Reactions Duloxetine Unknown Pregabalin Unknown Shellfish Derived Unknown Physical Exam: Right ear-external canal is patent. Her T-tube is functioning normally. No drainage or signs of infection. Mastoid nontender. Left ear-external canal is patent. TM intact. No effusion. Mastoid nontender. Nose-clear no rhinorrhea Oral cavity-clear, no lesions, no postnasal drip. Results: [] Procedure: [] Jayce Duke DO documented in this [facility] Work Phone: [phone]) 227-173006-25-2024 Nurse Note* Clementine Rodriguez RN - 05/02/2024 6:47 PM EDT Patient discharged to home, ambulated with girlfriend, refused the w/c. Final Lt chest dressing check done at 1830, IV's removed and patient discharge instructions reviewed, patient able to teachbackinstructions. [facility]06-25-2024 Nurse Note* Clementine Rodriguez RN - 05/02/2024 6:47 PM EDT Patient discharged to home, ambulated with girlfriend, refused the w/c. Final Lt chest dressing check done at 1830, IV's removed and patient discharge instructions reviewed, patient able to teachbackinstructions. * Clementine Rodriguez RN - 05/02/2024 6:03 PM EDT Device check has been completed, all is well. Chest xray has been done. Patient has met all discharge criteria,, ambulated to BR with steady gait. * Clementine Rodriguez RN - 05/02/2024 5:40 PM EDT Device rep at bedside. * Clementine Rodriguez RN - 05/02/2024 5:26 PM EDT Patient met with Dr. Ventura, is discussing plan of care and patient is now asking to go home tonight.Dr. Ventura states patient may opt to go home tonight as long as she has her bloodword drawn tomorrow.Now plan is to discharge patient tonight, once device rep meets with her. Dr. Ventura will contact [employer] rep. * Clementine Rodriguez RN - 05/02/2024 3:50 PM EDT Patient received from EP lab into room 209, S/P Loop Removal and PPM Implant via left chest. Patient has 2 Aquacell dressings to upper lt chest, both are dry/intact, no ecchymosis, no hematoma. Lt arm in sling. Ice pack to Lt chest. Patient denies any complaints of pain, vital signs stable. Patient's significant other and father at bedside. Post-procedure EKG completed. Tele monitor: 1:1 Atrial paced 100% at 60. Nursing call light within reach. [facility]: [phone]) [phone] Nurse Note* Clementine Rodriguez RN - 05/02/2024 6:03 PM EDT Device check has been completed, all is well. Chest xray has been done. Patient has met all discharge criteria,, ambulated to with steady gait. [facility] Work Phone: [phone] Nurse Note* Clementine Rodriguez RN - 05/02/2024 5:40 PM EDT Device rep at bedside. [facility] Work Phone: [phone] Nurse Note* Clementine Rodriguez RN - 05/02/2024 5:26 PM EDT Patient met with Dr. Ventura, is discussing plan of care and patient is now asking to go home tonight.Dr. Ventura states patient may opt to go home tonight as long as she has her bloodword drawn tomorrow.Now plan is to discharge patient tonight, once device rep meets with her. Dr. Ventura will contact [employer] rep. [facility] Work Phone: [phone] NoteTable formatting from the original result was not included. Procedure Details: Permanent Pacemaker System Implantation Dual Chamber and successful removal of loop recorder Summary: Successful implantation of a dual-chamber permanent pacemaker. The pacing and sensing thresholds were satisfactory. Successful removal of loop recorder Recommendations: 1. A chest X-ray should be performed and telemetry monitoring continued for 24 hours. 2. A 12 lead ECG should be performed prior to discharge from the hospital. 3. The patient should continue with the present medications. Discharge: 1. The patient recovered uneventfully from the effects of conscious sedation. The patient left the EP laboratory in stable condition and was transferred to the telemetry unit . Follow up: 1. The patient will be discharged the same day of the procedure if recovery parameters are appropriate. The patient should be alert for bleeding, swelling, or signs of infection. The patient should call the professor of education immediately if symptoms recur, or for any problems. The patient has been instructed accordingly. 2. Follow up with [facility] office in seven days for post-operative wound assessment. 3. Follow up with Device Clinic in twelve weeks for routine device analysis and reprogramming if necessary. Remote monitoring will be instituted if possible. Procedures: Pocket fashioned. Dual-chamber permanent pacemaker implantation. Device testing. Removal of loop recorder Patient history: Please refer to the detailed history and physical on the patient's medical chart. History of significant bradycardia associated with near syncope. Status post loop recorder implantation. Patient is scheduled for dual-chamber pacemaker implantation with removal of loop recorder. Procedure narrative: The risks, benefits, and alternatives to the procedure and sedation were explained to the patient, and informed consent was obtained. The patient was in the fasting state. A grounding pad was placed. Self-adhesive anterior-posterior defibrillation pads were applied. A ZOLL defibrillator was used for monitoring and the defibrillator waveform was set to biphasic. The patient was set up for continuous monitoring of surface 12 lead ECG and pulse oximetry. Blood pressure was monitored. The procedure was performed under IV conscious sedation. The upper chest was prepped and draped in the usual sterile fashion. Local anesthesia: After preoperative IV antibiotic was completely infused, subcutaneous tissues just medial to the left deltopectoral area, were infiltrated with Lidocaine 1 % for local anesthesia. 1. Using a #15 scalpel, an incision was made, which was extended to the prepectoral fascia using blunt dissection. 2. The left cephalic vein was accessed. The distal part was tied off. Using Rivas scissors a venotomy was created. 3. A guidewire was advanced to the heart under fluoroscopic guidance, a sheath was placed over the guidewire, and the guidewire was retained and the dilator was removed. A lead was then advanced to the heart via fluoroscopic guidance, and the sheath was peeled away. The ventricle was mapped, and the lead was fixed to the right ventricular low septum. After lead placement, appropriate sensing and thresholds were obtained. No diaphragmatic pacing occurred at 10V and 1.5ms. A second sheath was placed over the wire and the dilator were removed. A pacemaker lead was advanced to the heart under fluoroscopy guidance and the sheath was peeled away. The lead was placed in the right atrial appendage. After lead placement, appropriate sensing and threshols were obtained. No diaphragmatic pacing occurred at 10V and 1.5ms. 4. The lead was sutured in place to the pectoralis muscle using O-Ethibond suture. Hemostasis was obtained with bovie cautery, one purse string sutures of O-Ethibond, and Stella. Lead measurements were reevaluated. 5. A left prepectoral pocket was fashioned. 6. A dual-chamber permanent pacemaker was attached to the lead and implanted. 7. The device was interrogated and its parameters recorded; telemetered electrograms and pacing and sensing thresholds were measured. 8. The pocket was flushed with saline and vancomycin. Wound hemostasis was obtained with electrocautery. The wound was closed in three layers. The skin was approximated with subcuticular suture and steri-strips. A pressure dressing was applied. 10 cc of lidocaine were infiltrated around the device pocket (loop recorder). An incision was made with a #15 scalpel. A loop recorder was removed intact. The device was sent to the audio video mechanic for analysis. The skin was approximated with subcuticular suture and steri-strips. A pressure dressing was applied. The patient (more content not included)...[id number] Nurse Note* Clementine Rodriguez RN - 05/02/2024 3:50 PM EDT Patient received from EP lab into room 209, S/P Loop Removal and PPM Implant via left chest. Patient has 2 Aquacell dressings to upper lt chest, both are dry/intact, no ecchymosis, no hematoma. Lt arm in sling. Ice pack to Lt chest. Patient denies any complaints of pain, vital signs stable. Patient's significant other and father at bedside. Post-procedure EKG completed. Tele monitor: 1:1 Atrial paced 100% at 60. Nursing call light within reach. [facility] Work Phone: [phone]) [phone] Hospital Discharge instructions* Discharge Instructions* SIMÓN Cohn - 05/02/2024 3:36 PM EDT Images from the original note were not included. Home going instructions after a Pacemaker/ Defibrillator Implant After a procedure using sedation You should return home and rest for the remainder of the day and evening. It is recommended a responsible adult be with you for the first 24 hours after the procedure. Do not make any legal decisions for 24 hours after your procedure. Do not drink alcoholic beverages for 24 hours after your procedure. Wound care Leave the surgical dressing in place for 7 days post implant The dressing will be removed at the 1 week follow up appointment. Please keep your incision dry, the dressing is water resistant. You may shower avoid water directly hitting the dressing. Inspect your incisional site/ dressing each day Apply ice to the site 3-4 times per day in 20 minute intervals for at least 2 days after surgery It is normal for the area around the incision to be tender for a few weeks following surgery. Pain relievers such as Tylenol or Motrin are usually sufficient for pain relief. You may be prescribed Tramadol in addition. Take as prescribed alternating with Tylenol or Motrin. Activity Avoid driving for 1 week. If you have had passing out spells or previously restricted from driving, discuss driving restrictions with your doctor. For the first 4 to 6 weeks after implant avoid excessive/repetitive arm movement on the side of your new implant. Do not raise, push, pull, or stretch your arm above shoulder level. Do not picker and sorter load and unload items that weigh greater than 10 lbs with the device arm. Wear your binder/sling for the first 48 hours then at night to remind you not to move the arm over your head and during the day as needed. Report to your provider Increased redness, swelling, drainage or gaping of your incisional site. Increased pain at site unrelieved by pain medication. Fever or chills prior to the 1 week appointment. Bright red bleeding from the incisional site or complete saturation of the dressing. Dizziness, lightheadedness, passing out, or defibrillator shocks. Remote monitoring/ Device ID card You have been instructed by the device company employment program representative regarding remote home monitoring. There are multiple types of home monitoring units, please follow the instructions given If you have questions please contact the device clinic for further instruction After implant you will receive a temporary card. Permanent card will come in the mail in the next few weeks. It is important that you carry your pacemaker ID card with you at all times. Inform all doctors and healthcare providers that you have a pacemaker. Electromagnetic Interference: Microwave ovens are safe to use. Please inform any physicians of your pacemaker implant prior to MRI for appropriate scheduling. You should be prepared to show your pacemaker identification card to the security guards at metal detectors. Hand wand detector should be kept away from the pacemaker. Read the patient booklet for more information. Follow up appointments Incision (wound) check in 1 week. Appointment for Chest xray, device check, and provider in 3 months. These appointments will be scheduled and appear on your After Visit Summary. * Attachments The following attachments cannot be sent through Care Everywhere. * Pacemaker Insertion Discharge Instructions (Gabonese) documented in this [facility] Work Phone: 1(804) 600-322106-25-2024 Note* Pre-Sedation Documentation - Geovany Ventura MD - 05/02/2024 12:24 PM EDT Sedation Plan ASA 2 Mallampati class: II. Risks, benefits, and alternatives discussed with patient. [facility] Work Phone: [phone]) 246-130806-25-2024 Attending History and physical note* Geovany Ventura MD - 05/02/2024 12:24 PM EDT H&P reviewed. The patient was examined and there are no changes to the H&P. Source Note - Geovany Ventura MD - 04/19/2024 9:15 AM EDT CARDIOLOGY OFFICE VISIT CHIEF COMPLAINT Chief Complaint Patient presents with Follow-up Pt is here today following up with [facility] HISTORY OF PRESENT ILLNESS HPI 48-year-old female with a past medical history of cystic compulsive disorder and also history of Chiari malformation with brain surgery done approximately a year ago. Patient has been followed by gynecology service since June last year after patient was admitted to outside hospital. 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 Then she got some radiation into the right arm. Then she started noticing right arm and right lower extremity weakness and she went home with those symptoms. At home her blood pressure systolic was found to be in the 80s with heart rates in the 40s. She came to emergency departmentfor an evaluation. During telemetry patient states that her heart rate was always bradycardic. She was referred for cardiology for an evaluation. She had an a stress test and echocardiogram and also a Holter monitor that were unremarkable. Echocardiogram in December 2022 shows left ventricular ejection fraction of 60 to 65% with no significant valvular normalities. Holter monitor in October 2022 shows underlying rhythm of sinus rhythmwith minimum heart rate 45 bpm maximal heart rate of 129 beats per hours heart of 64 bpm. There were brief episodes of nonsustained supraventricular tachycardia up to 4 beats of duration. Asymptomatic. No evidence of heart block or atrial fibrillation. Had a stress test in December 2022 shows no evidence of ischemia with a left ventricular ejection fraction of 69%. Due to persisting of symptoms of palpitations chest discomfort and sometimes diaphoresis an event monitor was ordered in March 2023. Event monitor shows underlying rhythm was sinus rhythm. There were 23 triggered events with symptoms that they were not specified. 1 of these episodes were related withwide-complex tachycardia total of 9 beats that occurred on February 22, 2023 at 1 in the morning. rateof 173 bpm. Based on the results of the event monitor a cardiac MRI was done that shows left ventricular ejection fraction of 62% with delayed enhancement normal. No significant valvular normalities with mild asymmetric left ventricular hypertrophy. Patient with implantation of a loop recorder in December 10, 2023 with no complications. Patient states that she continues having episodes of dizziness most of the times with postural changes but sometimes when she is not doing too many activities. Loop recorder interrogation has been showing episodes of sinus bradycardia with pauses up to 5 seconds of duration multiple times for the last 2 months. These episodes happen between afternoon-early evening. EKG performed today shows sinus bradycardia rate of 52 bpm QRS duration 90 ms QT corrected 480 ms. Rhythm strip shows the same pattern. 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 Hyperlipidemia Hypertension OCD (obsessive compulsive disorder) Other disorders of lung Lung trouble Personal history of other diseases of the digestive system History of gastroesophageal reflux (GERD) Personal history of other diseases of the musculoskeletal system and connective tissue History of arthritis Personal history of other diseases of the nervous system and sense organs History of sleep apnea Personal history of other diseases of the respiratory system History of chronic obstructive lung disease Personal history of other diseases of the respiratory system History of bronchitis Personal history of other diseases of the respiratory system History of asthma Personal history of other endocrine, nutritional and metabolic disease History of diabetes mellitus Personal history of other endocrine, nutritional and metabolic disease History of thyroid disorder Personal history of other mental and behavioral disorders History of depression Personal history of other mental and behavioral disorders History of mental disorder Personal history of other specified conditions History of snoring Social History Social History Tobacco Use Smoking status: Every Day Current packs/day: 0.50 Types: Cigarettes Smokeless tobacco: Never Vaping Use Vaping status: Never Used Substance Use Topics Alcohol use: Not Currently Comment: quit 2007 Drug use: Not Currently Types: Marijuana Family History Family History Problem Relation Name Age of Onset Hypertension Mother Arthritis Mother No Known Problems Father Allergies: Allergies Allergen Reactions Duloxetine Unknown Pregabalin Unknown Shellfish Derived Unknown Outpatient Medications: Current Outpatient Medications Medication Instructions albuterol (Ventolin HFA) 90 mcg/actuation inhaler 2 puffs, inhalation, Every 6 hours PRN aspirin 81 mg, oral, Daily atorvastatin (LIPITOR) 80 mg, oral, Nightly blood sugar diagnostic ([employer] test strips) strip Test blood sugars 4 times a day as directed brivaracetam (BRIVIACT) 200 mg, oral, 2 times daily buPROPion SR (Wellbutrin SR) 150 mg 12 hr tablet cholecalciferol (Vitamin D-3) 125 MCG (5000 UT) capsule 1 capsule, oral, Once Weekly, Once weekly on wednesday clotrimazole (Lotrimin) 1 % cream 1 Application, Topical, 2 times daily diclofenac sodium (Voltaren) 1 % gel gel APPLY 4 INCHES OF MEDICATION TO EACH KNEE EVERY 4 HOURS ASNEEDED dulaglutide (TRULICITY) 0.75 mg, subcutaneous, Once Weekly ergocalciferol (VITAMIN D-2) 1,250 mcg, oral, Once Weekly Fycompa 4 mg, oral, Nightly gabapentin (NEURONTIN) 1,200 mg, oral, 3 times daily lamoTRIgine (LAMICTAL) 200 mg, oral, Daily lisinopril 5 mg, oral, Daily metoprolol tartrate (LOPRESSOR) 25 mg, oral, 2 times daily montelukast (SINGULAIR) 10 mg, oral, Nightly ondansetron (ZOFRAN) 8 mg, oral, Every 8 hours PRN pantoprazole (ProtoNix) 40 mg EC tablet 1 tablet, oral, 2 times daily topiramate (TOPAMAX) 50 mg, oral, 2 times daily umeclidinium-vilanteroL (Anoro Ellipta) 62.5-25 mcg/actuation blister with device 1 puff, inhalation, Daily valACYclovir (VALTREX) 500 mg, oral, Daily REVIEW OF SYSTEMS Review of Systems Neurological: Positive for dizziness and light-headedness. VITALS Vitals: 04/19/24 0941 BP: 90/60 Pulse: 52 PHYSICAL EXAM Constitutional: General: Awake. Appearance: Normal and healthy appearance. Well-developed and not in distress. Neck: Vascular: No JVR. JVD normal. Pulmonary: Effort: Pulmonary effort is normal. Breath sounds: Normal breath sounds. No wheezing. No rhonchi. No rales. Chest: Chest wall: Not tender to palpatation. Comments: Loop recorder in place Cardiovascular: PMI at left midclavicular line. Bradycardia present. Regular rhythm. Normal S1. Normal S2. Murmurs: There is no murmur. No gallop. No click. No rub. Pulses: Intact distal pulses. Edema: Peripheral edema absent. Abdominal: Tenderness: There is no abdominal tenderness. Musculoskeletal: Normal range of motion. General: No tenderness. Skin: General: Skin is warm and dry. Neurological: General: No focal deficit present. Mental Status: Alert and oriented to person, place and time. ASSESSMENT AND PLAN Clinical impression 1. Evidence of bradycardia during admission in outside hospital. 2. Palpitations 3. Evidence of nonsustained ventricular tachycardia on event monitor 4. Normal left ventricular function per echocardiogram in 2022 and cardiac MRI in 2022 5. No evidence of ischemia per stress test in 2022 6. 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 Obsessive-compulsive disorder 8. Status post loop recorder implantation in December 2023 with no complications 9. Evidence of pauses that may be related with near syncope. This was discussed with patient and family members during this office visit Plan recommendations I had a lengthy discussion with patient and family member regarding findings of the loop recorder. Patient is having significant pauses up to 5 seconds duration that may be related with near syncope.Patient also understood that episodes of near syncope may be unrelated with this. Somewhat in couldbe related to postural changes/neuromediated syncope. Definitely patient will benefit of a dual-nitesh elma pacemaker and removal of loop recorder. Procedure, risk, benefits and possible complications were explained to patient. All questions were answered. Patient agrees with plan. Informed consent wassigned. Patient is to hold [employer] for 7 days. Get echocardiogram for left ventricular ejection fraction relation prior to pacemaker. Follow my office 7 days postprocedure for wound assessment. Risk factor modification and lifestyle modification discussed with patient. Diet , exercise and hydration discussed with patient. I have personally review with patient during this office visit, laboratory data, echocardiogram results, stress test results, Holter-event monitor results prior and after the last electrophysiology visit. All questions has been answered. Please excuse any errors in grammar or translation related to this dictation. Voice recognition software was utilized to prepare this document. [facility] Work Phone: [phone]) 749-390406-25-2024 History and physical note* Geovany Ventura MD - 05/02/2024 12:24 PM EDT H&P reviewed. The patient was examined and there are no changes to the H&P. Source Note - Geovany Ventura MD - 04/19/2024 9:15 AM EDT CARDIOLOGY OFFICE VISIT CHIEF COMPLAINT Chief Complaint Patient presents with Follow-up Pt is here today following up with [facility] HISTORY OF PRESENT ILLNESS HPI 48-year-old female with a past medical history of cystic compulsive disorder and also history of Chiari malformation with brain surgery done approximately a year ago. Patient has been followed by gynecology service since June last year after patient was admitted to outside hospital. 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 Then she got some radiation into the right arm. Then she started noticing right arm and right lower extremity weakness and she went home with those symptoms. At home her blood pressure systolic was found to be in the 80s with heart rates in the 40s. She came to emergency departmentfor an evaluation. During telemetry patient states that her heart rate was always bradycardic. She was referred for cardiology for an evaluation. She had an a stress test and echocardiogram and also a Holter monitor that were unremarkable. Echocardiogram in December 2022 shows left ventricular ejection fraction of 60 to 65% with no significant valvular normalities. Holter monitor in October 2022 shows underlying rhythm of sinus rhythmwith minimum heart rate 45 bpm maximal heart rate of 129 beats per hours heart of 64 bpm. There were brief episodes of nonsustained supraventricular tachycardia up to 4 beats of duration. Asymptomatic. No evidence of heart block or atrial fibrillation. Had a stress test in December 2022 shows no evidence of ischemia with a left ventricular ejection fraction of 69%. Due to persisting of symptoms of palpitations chest discomfort and sometimes diaphoresis an event monitor was ordered in March 2023. Event monitor shows underlying rhythm was sinus rhythm. There were 23 triggered events with symptoms that they were not specified. 1 of these episodes were related withwide-complex tachycardia total of 9 beats that occurred on February 22, 2023 at 1 in the morning. rateof 173 bpm. Based on the results of the event monitor a cardiac MRI was done that shows left ventricular ejection fraction of 62% with delayed enhancement normal. No significant valvular normalities with mild asymmetric left ventricular hypertrophy. Patient with implantation of a loop recorder in December 10, 2023 with no complications. Patient states that she continues having episodes of dizziness most of the times with postural changes but sometimes when she is not doing too many activities. Loop recorder interrogation has been showing episodes of sinus bradycardia with pauses up to 5 seconds of duration multiple times for the last 2 months. These episodes happen between afternoon-early evening. EKG performed today shows sinus bradycardia rate of 52 bpm QRS duration 90 ms QT corrected 480 ms. Rhythm strip shows the same pattern. 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 Hyperlipidemia Hypertension OCD (obsessive compulsive disorder) Other disorders of lung Lung trouble Personal history of other diseases of the digestive system History of gastroesophageal reflux (GERD) Personal history of other diseases of the musculoskeletal system and connective tissue History of arthritis Personal history of other diseases of the nervous system and sense organs History of sleep apnea Personal history of other diseases of the respiratory system History of chronic obstructive lung disease Personal history of other diseases of the respiratory system History of bronchitis Personal history of other diseases of the respiratory system History of asthma Personal history of other endocrine, nutritional and metabolic disease History of diabetes mellitus Personal history of other endocrine, nutritional and metabolic disease History of thyroid disorder Personal history of other mental and behavioral disorders History of depression Personal history of other mental and behavioral disorders History of mental disorder Personal history of other specified conditions History of snoring Social History Social History Tobacco Use Smoking status: Every Day Current packs/day: 0.50 Types: Cigarettes Smokeless tobacco: Never Vaping Use Vaping status: Never Used Substance Use Topics Alcohol use: Not Currently Comment: quit 2007 Drug use: Not Currently Types: Marijuana Family History Family History Problem Relation Name Age of Onset Hypertension Mother Arthritis Mother No Known Problems Father Allergies: Allergies Allergen Reactions Duloxetine Unknown Pregabalin Unknown Shellfish Derived Unknown Outpatient Medications: Current Outpatient Medications Medication Instructions albuterol (Ventolin HFA) 90 mcg/actuation inhaler 2 puffs, inhalation, Every 6 hours PRN aspirin 81 mg, oral, Daily atorvastatin (LIPITOR) 80 mg, oral, Nightly blood sugar diagnostic ([employer] test strips) strip Test blood sugars 4 times a day as directed brivaracetam (BRIVIACT) 200 mg, oral, 2 times daily buPROPion SR (Wellbutrin SR) 150 mg 12 hr tablet cholecalciferol (Vitamin D-3) 125 MCG (5000 UT) capsule 1 capsule, oral, Once Weekly, Once weekly on wednesday clotrimazole (Lotrimin) 1 % cream 1 Application, Topical, 2 times daily diclofenac sodium (Voltaren) 1 % gel gel APPLY 4 INCHES OF MEDICATION TO EACH KNEE EVERY 4 HOURS ASNEEDED dulaglutide (TRULICITY) 0.75 mg, subcutaneous, Once Weekly ergocalciferol (VITAMIN D-2) 1,250 mcg, oral, Once Weekly Fycompa 4 mg, oral, Nightly gabapentin (NEURONTIN) 1,200 mg, oral, 3 times daily lamoTRIgine (LAMICTAL) 200 mg, oral, Daily lisinopril 5 mg, oral, Daily metoprolol tartrate (LOPRESSOR) 25 mg, oral, 2 times daily montelukast (SINGULAIR) 10 mg, oral, Nightly ondansetron (ZOFRAN) 8 mg, oral, Every 8 hours PRN pantoprazole (ProtoNix) 40 mg EC tablet 1 tablet, oral, 2 times daily topiramate (TOPAMAX) 50 mg, oral, 2 times daily umeclidinium-vilanteroL (Anoro Ellipta) 62.5-25 mcg/actuation blister with device 1 puff, inhalation, Daily valACYclovir (VALTREX) 500 mg, oral, Daily REVIEW OF SYSTEMS Review of Systems Neurological: Positive for dizziness and light-headedness. VITALS Vitals: 04/19/24 0941 BP: 90/60 Pulse: 52 PHYSICAL EXAM Constitutional: General: Awake. Appearance: Normal and healthy appearance. Well-developed and not in distress. Neck: Vascular: No JVR. JVD normal. Pulmonary: Effort: Pulmonary effort is normal. Breath sounds: Normal breath sounds. No wheezing. No rhonchi. No rales. Chest: Chest wall: Not tender to palpatation. Comments: Loop recorder in place Cardiovascular: PMI at left midclavicular line. Bradycardia present. Regular rhythm. Normal S1. Normal S2. Murmurs: There is no murmur. No gallop. No click. No rub. Pulses: Intact distal pulses. Edema: Peripheral edema absent. Abdominal: Tenderness: There is no abdominal tenderness. Musculoskeletal: Normal range of motion. General: No tenderness. Skin: General: Skin is warm and dry. Neurological: General: No focal deficit present. Mental Status: Alert and oriented to person, place and time. ASSESSMENT AND PLAN Clinical impression 1. Evidence of bradycardia during admission in outside hospital. 2. Palpitations 3. Evidence of nonsustained ventricular tachycardia on event monitor 4. Normal left ventricular function per echocardiogram in 2022 and cardiac MRI in 2022 5. No evidence of ischemia per stress test in 2022 6. 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 Obsessive-compulsive disorder 8. Status post loop recorder implantation in December 2023 with no complications 9. Evidence of pauses that may be related with near syncope. This was discussed with patient and family members during this office visit Plan recommendations I had a lengthy discussion with patient and family member regarding findings of the loop recorder. Patient is having significant pauses up to 5 seconds duration that may be related with near syncope.Patient also understood that episodes of near syncope may be unrelated with this. Somewhat in couldbe related to postural changes/neuromediated syncope. Definitely patient will benefit of a dual-nitesh elma pacemaker and removal of loop recorder. Procedure, risk, benefits and possible complications were explained to patient. All questions were answered. Patient agrees with plan. Informed consent wassigned. Patient is to hold [employer] for 7 days. Get echocardiogram for left ventricular ejection fraction relation prior to pacemaker. Follow my office 7 days postprocedure for wound assessment. Risk factor modification and lifestyle modification discussed with patient. Diet , exercise and hydration discussed with patient. I have personally review with patient during this office visit, laboratory data, echocardiogram results, stress test results, Holter-event monitor results prior and after the last electrophysiology visit. All questions has been answered. Please excuse any errors in grammar or translation related to this dictation. Voice recognition software was utilized to prepare this document. [facility] Work Phone: 1(604) 376-679206-25-2024 Miscellaneous Notes* Pre-Sedation Documentation - Geovany Ventura MD - 05/02/2024 12:24 PM EDT Sedation Plan ASA 2 Mallampati class: II. Risks, benefits, and alternatives discussed with patient. documented in this encounterWV[facility] Work Phone: 1(575) 487-648506-12-2024 History of Present illness Narrative* Geovany Ventura MD - 04/19/2024 9:15 AM EDT CARDIOLOGY OFFICE VISIT CHIEF COMPLAINT Chief Complaint Patient presents with Follow-up Pt is here today following up with [facility] HISTORY OF PRESENT ILLNESS HPI 48-year-old female with a past medical history of cystic compulsive disorder and also history of Chiari malformation with brain surgery done approximately a year ago. Patient has been followed by gynecology service since June last year after patient was admitted to outside hospital. 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 Then she got some radiation into the right arm. Then she started noticing right arm and right lower extremity weakness and she went home with those symptoms. At home her blood pressure systolic was found to be in the 80s with heart rates in the 40s. She came to emergency departmentfor an evaluation. During telemetry patient states that her heart rate was always bradycardic. She was referred for cardiology for an evaluation. She had an a stress test and echocardiogram and also a Holter monitor that were unremarkable. Echocardiogram in December 2022 shows left ventricular ejection fraction of 60 to 65% with no significant valvular normalities. Holter monitor in October 2022 shows underlying rhythm of sinus rhythmwith minimum heart rate 45 bpm maximal heart rate of 129 beats per hours heart of 64 bpm. There were brief episodes of nonsustained supraventricular tachycardia up to 4 beats of duration. Asymptomatic. No evidence of heart block or atrial fibrillation. Had a stress test in December 2022 shows no evidence of ischemia with a left ventricular ejection fraction of 69%. Due to persisting of symptoms of palpitations chest discomfort and sometimes diaphoresis an event monitor was ordered in March 2023. Event monitor shows underlying rhythm was sinus rhythm. There were 23 triggered events with symptoms that they were not specified. 1 of these episodes were related withwide-complex tachycardia total of 9 beats that occurred on February 22, 2023 at 1 in the morning. rateof 173 bpm. Based on the results of the event monitor a cardiac MRI was done that shows left ventricular ejection fraction of 62% with delayed enhancement normal. No significant valvular normalities with mild asymmetric left ventricular hypertrophy. Patient with implantation of a loop recorder in December 10, 2023 with no complications. Patient states that she continues having episodes of dizziness most of the times with postural changes but sometimes when she is not doing too many activities. Loop recorder interrogation has been showing episodes of sinus bradycardia with pauses up to 5 seconds of duration multiple times for the last 2 months. These episodes happen between afternoon-early evening. EKG performed today shows sinus bradycardia rate of 52 bpm QRS duration 90 ms QT corrected 480 ms. Rhythm strip shows the same pattern. 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 Hyperlipidemia Hypertension OCD (obsessive compulsive disorder) Other disorders of lung Lung trouble Personal history of other diseases of the digestive system History of gastroesophageal reflux (GERD) Personal history of other diseases of the musculoskeletal system and connective tissue History of arthritis Personal history of other diseases of the nervous system and sense organs History of sleep apnea Personal history of other diseases of the respiratory system History of chronic obstructive lung disease Personal history of other diseases of the respiratory system History of bronchitis Personal history of other diseases of the respiratory system History of asthma Personal history of other endocrine, nutritional and metabolic disease History of diabetes mellitus Personal history of other endocrine, nutritional and metabolic disease History of thyroid disorder Personal history of other mental and behavioral disorders History of depression Personal history of other mental and behavioral disorders History of mental disorder Personal history of other specified conditions History of snoring Social History Social History Tobacco Use Smoking status: Every Day Current packs/day: 0.50 Types: Cigarettes Smokeless tobacco: Never Vaping Use Vaping status: Never Used Substance Use Topics Alcohol use: Not Currently Comment: quit 2007 Drug use: Not Currently Types: Marijuana Family History Family History Problem Relation Name Age of Onset Hypertension Mother Arthritis Mother No Known Problems Father Allergies: Allergies Allergen Reactions Duloxetine Unknown Pregabalin Unknown Shellfish Derived Unknown Outpatient Medications: Current Outpatient Medications Medication Instructions albuterol (Ventolin HFA) 90 mcg/actuation inhaler 2 puffs, inhalation, Every 6 hours PRN aspirin 81 mg, oral, Daily atorvastatin (LIPITOR) 80 mg, oral, Nightly blood sugar diagnostic ([employer] test strips) strip Test blood sugars 4 times a day as directed brivaracetam (BRIVIACT) 200 mg, oral, 2 times daily buPROPion SR (Wellbutrin SR) 150 mg 12 hr tablet cholecalciferol (Vitamin D-3) 125 MCG (5000 UT) capsule 1 capsule, oral, Once Weekly, Once weekly on wednesday clotrimazole (Lotrimin) 1 % cream 1 Application, Topical, 2 times daily diclofenac sodium (Voltaren) 1 % gel gel APPLY 4 INCHES OF MEDICATION TO EACH KNEE EVERY 4 HOURS ASNEEDED dulaglutide (TRULICITY) 0.75 mg, subcutaneous, Once Weekly ergocalciferol (VITAMIN D-2) 1,250 mcg, oral, Once Weekly Fycompa 4 mg, oral, Nightly gabapentin (NEURONTIN) 1,200 mg, oral, 3 times daily lamoTRIgine (LAMICTAL) 200 mg, oral, Daily lisinopril 5 mg, oral, Daily metoprolol tartrate (LOPRESSOR) 25 mg, oral, 2 times daily montelukast (SINGULAIR) 10 mg, oral, Nightly ondansetron (ZOFRAN) 8 mg, oral, Every 8 hours PRN pantoprazole (ProtoNix) 40 mg EC tablet 1 tablet, oral, 2 times daily topiramate (TOPAMAX) 50 mg, oral, 2 times daily umeclidinium-vilanteroL (Anoro Ellipta) 62.5-25 mcg/actuation blister with device 1 puff, inhalation, Daily valACYclovir (VALTREX) 500 mg, oral, Daily REVIEW OF SYSTEMS Review of Systems Neurological: Positive for dizziness and light-headedness. VITALS Vitals: 04/19/24 0941 BP: 90/60 Pulse: 52 PHYSICAL EXAM Constitutional: General: Awake. Appearance: Normal and healthy appearance. Well-developed and not in distress. Neck: Vascular: No JVR. JVD normal. Pulmonary: Effort: Pulmonary effort is normal. Breath sounds: Normal breath sounds. No wheezing. No rhonchi. No rales. Chest: Chest wall: Not tender to palpatation. Comments: Loop recorder in place Cardiovascular: PMI at left midclavicular line. Bradycardia present. Regular rhythm. Normal S1. Normal S2. Murmurs: There is no murmur. No gallop. No click. No rub. Pulses: Intact distal pulses. Edema: Peripheral edema absent. Abdominal: Tenderness: There is no abdominal tenderness. Musculoskeletal: Normal range of motion. General: No tenderness. Skin: General: Skin is warm and dry. Neurological: General: No focal deficit present. Mental Status: Alert and oriented to person, place and time. ASSESSMENT AND PLAN Clinical impression 1. Evidence of bradycardia during admission in outside hospital. 2. Palpitations 3. Evidence of nonsustained ventricular tachycardia on event monitor 4. Normal left ventricular function per echocardiogram in 2022 and cardiac MRI in 2022 5. No evidence of ischemia per stress test in 2022 6. 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 Obsessive-compulsive disorder 8. Status post loop recorder implantation in December 2023 with no complications 9. Evidence of pauses that may be related with near syncope. This was discussed with patient and family members during this office visit Plan recommendations I had a lengthy discussion with patient and family member regarding findings of the loop recorder. Patient is having significant pauses up to 5 seconds duration that may be related with near syncope.Patient also understood that episodes of near syncope may be unrelated with this. Somewhat in couldbe related to postural changes/neuromediated syncope. Definitely patient will benefit of a dual-nitesh elma pacemaker and removal of loop recorder. Procedure, risk, benefits and possible complications were explained to patient. All questions were answered. Patient agrees with plan. Informed consent wassigned. Patient is to hold Trulicity for 7 days. Get echocardiogram for left ventricular ejection fraction relation prior to pacemaker. Follow my office 7 days postprocedure for wound assessment. Risk factor modification and lifestyle modification discussed with patient. Diet , exercise and hydration discussed with patient. I have personally review with patient during this office visit, laboratory data, echocardiogram results, stress test results, Holter-event monitor results prior and after the last electrophysiology visit. All questions has been answered. Please excuse any errors in grammar or translation related to this dictation. Voice recognition software was utilized to prepare this document. documented in this encounter[facility] Work Phone: 1(415) 529-484306-12-2024 Instructions* Patient Instructions* Tereza Liu RN - 04/19/2024 9:15 AM EDT Continue same medications/treatment. Patient educated on proper medication use. Patient educated on risk factor modification. Please bring any lab results from other providers/physicians to your next appointment. Please bring all medicines, vitamins, and herbal supplements with you when you come to the office. Prescriptions will not be filled unless you are compliant with your follow up appointments or have a follow up appointment scheduled as per instruction of your physician. Refills should be requested at the time of your visit. SCHEDULE Echocardiogram SCHEDULE Dual chamber PPM implant. Obtain labs 1 week prior to procedure. Orders are in the system. HOLD Trulicity for 1 week prior to procedure. Tereza Miranda RN, AM SCRIBING FOR, AND IN THE PRESENCE OF DR. GEOVANY VENTURA MD documented in this encounterWV[facility] Work Phone: [phone] History of Present illness Narrative* Gilda Leong MD - 03/15/2024 1:15 PM EDT Hien Chunilly 48 y.o. SUBJECTIVE Seizures Hien is a 48-year-old young lady was seen today for follow-up of her partial complex seizure with secondary generalization with history of Arnold- Chiari malformation s/p surgery. She has multiple other medical issues including [place] syndrome with pituitary tumor and multiple vascular anomalies including thrombosis of the carotid artery, peripheral vascular disease for which she has been seen and followed by vascular surgery at [facility]. She is getting Topamax and Briviact from co and has been seizure-free and only had 1 breakthrough seizure few seconds when she was upset. No history of any other symptoms since last seen no side effects of the medication. Today her physical and neurological nonfocal except slightly wide-based ataxic gait but she was able to ambulate withoutdifficulty. I would like to continue her medicine the way she is taking and have requested her to bring all her medications since she is on quite a few of the medication which she has not been taking. I have discussed the risk and the precautions importance of taking medications regularly and the trigger factors for breakthrough seizures which patient understood. Due to technical limitations of voice recognition and human error, this note may not accurately reflect the care of the patient. Review of Systems Neurological: Positive for seizures. Psychiatric/Behavioral: Positive for behavioral problems and sleep disturbance. Patient Active Problem List Diagnosis Diabetes mellitus type II, non insulin dependent (Multi) Mixed conductive and sensorineural hearing loss of right ear with restricted hearing of left ear 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 (Multi) Diabetic neuropathy (Multi) Fluid level behind tympanic membrane of right ear History of thyroid nodule Hyperlipidemia LDL goal <100 Hypokalemia Multinodular goiter (nontoxic) Nausea and vomiting PCOS (polycystic ovarian syndrome) Seizure disorder (Multi) Sensorineural hearing loss (SNHL) of left ear with restricted hearing of right ear Syringomyelia (Multi) Unilateral headache Vitamin D deficiency Bradycardia Obesity Neuropathy Sinus node dysfunction (Multi) Syncope and collapse Vitamin B12 deficiency Current every day smoker Other emphysema (Multi) Abnormal loss of weight Acid reflux Anxiety Aortoiliac occlusive disease (Multi) Atherosclerosis of 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 Constipation, unspecified Cramps, extremity Depression Disturbance of skin sensation Drug abuse (Multi) DUB (dysfunctional uterine bleeding) Epigastric pain Genital HSV H/O ETOH abuse Irregular menses ITB syndrome Melena Menorrhagia АННА on CPAP Sleep apnea Rectal bleed Thyroid nodule Tubular adenoma of colon HTN (hypertension), benign Diabetes mellitus (Multi) Diabetes (Multi) High cholesterol Hypercholesterolemia Asymmetric SNHL (sensorineural hearing loss) Morbid obesity (Multi) Chronic obstructive pulmonary disease (Multi) COPD with asthma (Multi) Epilepsy (Multi) Seizure (Multi) Headache disorder BMI 32.0-32.9,adult Wide-complex tachycardia Palpitations Night sweats Chest pain Shortness of breath Status post placement of implantable loop recorder NSTEMI (non-ST elevated myocardial infarction) (Multi) Carotid bruit Bipolar 2 disorder, major depressive episode (Multi) NSVT (nonsustained ventricular tachycardia) (Multi) Past Medical History: Diagnosis Date Asthma ([facility]) Current smoker Diabetes mellitus (Multi) Disease of thyroid gland History of Chiari malformation 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 Hyperlipidemia Hypertension OCD (obsessive compulsive disorder) Other disorders of lung Lung trouble Personal history of other diseases of the digestive system History of gastroesophageal reflux (GERD) Personal history of other diseases of the musculoskeletal system and connective tissue History of arthritis Personal history of other diseases of the nervous system and sense organs History of sleep apnea Personal history of other diseases of the respiratory system History of chronic obstructive lung disease Personal history of other diseases of the respiratory system History of bronchitis Personal history of other diseases of the respiratory system History of asthma Personal history of other endocrine, nutritional and metabolic disease History of diabetes mellitus Personal history of other endocrine, nutritional and metabolic disease History of thyroid disorder Personal history of other mental and behavioral disorders History of depression Personal history of other mental and behavioral disorders History of mental disorder Personal history of other specified conditions History of snoring Past Surgical History: Procedure Laterality Date BRAIN SURGERY CARDIAC ELECTROPHYSIOLOGY PROCEDURE Left 12/10/2023 Procedure: Loop Insertion; Surgeon: Geovany Ventura MD; Location: [facility]; Service: Electrophysiology; Laterality: Left; GALLBLADDER SURGERY 10/14/2017 Gallbladder Surgery TONSILLECTOMY 10/14/2017 Tonsillectomy With Adenoidectomy reports that she has been smoking cigarettes. She has never used smokeless tobacco. She reports that she does not currently use alcohol. She reports that she does not currently use drugs after havingused the following drugs: Marijuana. BP 100/60 (BP Location: Left arm, Patient Position: Sitting, BP Cuff Size: Large adult) Pulse 65 Ht 1.651 m (5' 5 ) Wt 89.7 kg (197 lb 12.8 oz) BMI 32.92 kg/m OBJECTIVE Physical Exam/Neurological Exam Constitutional: General appearance: no acute distress . Patient has quite a few coarse hairs and onthe face probably from hirsutism. Auscultation of Heart: Regular rate and rhythm, no murmurs, normal S1 and S2. Carotid Arteries: Intact without any bruits. Neck is supple. No lymph adenopathy. Peripheral Vascular Exam: Pulses 1 +and equal in all extremities. No swelling, varicosities in lower extremities,, edema or tenderness to palpations. Abdomen is soft, nondistended. No organomegaly. Mental status: The patient was in no distress, alert, interactive and cooperative. Affect is appropriate. Orientation: oriented to person, oriented to place and oriented to time. Memory: recent memory intact and remote memory intact. Attention: normal attention span and normal concentrating ability. Language: normal comprehension and no difficulty naming common objects. Fund of knowledge: Patient displays adequate knowledge of current events, adequate fund of knowledge regarding past history and adequate fund of knowledge regarding vocabulary. Eyes: The ophthalmoscopic examination was normal. The fundi are visualized with normal disc marginsand without. Cranial nerve II: Visual pool full to confrontation. Cranial nerves III, IV, and : Pupils round, equally reactive to light; no ptosis. EOMs intact. Nonystagmus. Cranial Nerve V: Facial sensation intact bilaterally. Cranial nerve VII: Normal and symmetric facial strength. Cranial nerve VIII: Hearing is intact bilaterally to finger rub / whisper. Cranial nerves IX and X: Palate elevates symmetrically. Cranial nerve XI: Shoulder shrug and neck rotation strength are intact. Cranial nerve XII: Tongue midline with normal strength. Motor: Motor exam was normal. Muscle bulk was normal in both upper and lower extremities. Muscle tone was normal in both upper and lower extremities. Muscle strength was 5/5 throughout. no abnormal or adventitious movements were present. Deep Tendon Reflexes: left biceps 2+ , right biceps 2+, left triceps 2+, right triceps 2+, left brachioradialis 2+, right brachioradialis 2+, left patella 2+, right patella 2+, left ankle jerk 2+, right ankle jerk 2+ Plantar Reflex: Toes downgoing to plantar stimulation on the left. Toes downgoing to plantar stimulation on the right. Sensory Exam: Impaired to light touch and pinprick both in the hands and legs in the glove and stocking type. Coordination: There is no limb dystaxia and rapid alternating movements are intact. Gait: Gait is ataxic but she was able to ambulate without any assistance. ASSESSMENT/PLAN Diagnoses and all orders for this visit: 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 (Multi) Partial symptomatic epilepsy with complex partial seizures, intractable, without status epilepticus(Multi) - topiramate (Topamax) 50 mg tablet; Take 1 tablet (50 mg) by mouth 2 times a day. - brivaracetam (Briviact) 100 mg tablet tablet; Take 2 tablets (200 mg) by mouth 2 times a day. Syringomyelia (Multi) Chronic tension-type headache, intractable Gilda Leong MD 03/15/2024 2:03 PM documented in this [facility] Work Phone: [phone]) 445-167104-03-2024 History of Present illness Narrative* Ramiro Bhandari MD - 02/09/2024 9:15 AM EDT CARDIOLOGY OFFICE VISIT CHIEF COMPLAINT HISTORY OF PRESENT ILLNESS The patient states that she is not having any further chest discomfort. She does have some dyspnea at times due to her bronchial asthma and COPD. This seems to be stable. She denies palpitations and syncope. Unfortunately she started smoking cigarettes again. I told her she needs to stop smoking. Idid go over her most recent lipid profile with her. This is from August of last year. Cholesterol 161, HDL 33, LDL 96, triglycerides 161. She states her vascular surgeon at [facility] just increased her atorvastatin from 40 mg a day to 80 mg a day. I told her I agree with that and would recommend rechecking her lipids in 2 months. I told her we will call her with results. I did discuss her CT coronary angiograms with her. Her worst lesions are 50% mid RCA and 50% mid circumflex. She has mild CAD elsewhere. I explained to her that she needs to try to get her LDL cholesterol down to 70 or below and discontinue smoking cigarettes again. Impression: Coronary Artery Disease, mild to moderate by CCT[facility] 01/2024 History of nonsustained ventricular tachycardia on event monitor, Dr. Ventura Loop Recorder in place, Dr. Ventura managing Normal left ventricular systolic function by echocardiogram 2022 No evidence of myocardial ischemia per stress test 2022 Obesity History of bronchial asthma PAD / Aortoiliac Occlusive Disease. Vascular at [facility] managing Arnold-Chiari Syndrome [place] Syndrome Hypertension Hyperlipidemia Diabetes Mellitus, Type 2. LAKEISHA Auguste Bipolar/ Anxiety / Drug Abuse COPD/Asthma Obstructive Sleep Apnea on PAP therapy Current Smoker Daily Past Medical History Past Medical History: Diagnosis Date Asthma Current smoker Diabetes mellitus ([facility]) Disease of thyroid gland History of Chiari malformation Hypercortisolism ([facility]) 07/29/2023 Hyperlipidemia Hypertension OCD (obsessive compulsive disorder) Other disorders of lung Lung trouble Personal history of other diseases of the digestive system History of gastroesophageal reflux (GERD) Personal history of other diseases of the musculoskeletal system and connective tissue History of arthritis Personal history of other diseases of the nervous system and sense organs History of sleep apnea Personal history of other diseases of the respiratory system History of chronic obstructive lung disease Personal history of other diseases of the respiratory system History of bronchitis Personal history of other diseases of the respiratory system History of asthma Personal history of other endocrine, nutritional and metabolic disease History of diabetes mellitus Personal history of other endocrine, nutritional and metabolic disease History of thyroid disorder Personal history of other mental and behavioral disorders History of depression Personal history of other mental and behavioral disorders History of mental disorder Personal history of other specified conditions History of snoring Social History Social History Tobacco Use Smoking status: Every Day Packs/day: .5 Types: Cigarettes Smokeless tobacco: Never Substance Use Topics Alcohol use: Not Currently Comment: quit 2007 Drug use: Not Currently Types: Marijuana Family History Family History Problem Relation Name Age of Onset Hypertension Mother Arthritis Mother No Known Problems Father Allergies: Allergies Allergen Reactions Duloxetine Unknown Pregabalin Unknown Shellfish Derived Unknown Outpatient Medications: Current Outpatient Medications Medication Instructions albuterol (Ventolin HFA) 90 mcg/actuation inhaler 2 puffs, inhalation, Every 6 hours PRN atorvastatin (LIPITOR) 40 mg, oral, Nightly blood sugar diagnostic (YongCheTouch Verio test strips) strip Test blood sugars 4 times a day as directed Briviact 200 mg, oral, 2 times daily buPROPion SR (Wellbutrin SR) 150 mg 12 hr tablet cholecalciferol (Vitamin D-3) 125 MCG (5000 UT) capsule 1 capsule, oral, Weekly, Once weekly on wednesday clotrimazole (Lotrimin) 1 % cream 1 Application, Topical, 2 times daily diclofenac sodium (Voltaren) 1 % gel gel APPLY 4 INCHES OF MEDICATION TO EACH KNEE EVERY 4 HOURS ASNEEDED dulaglutide (TRULICITY) 0.75 mg, subcutaneous, Weekly ergocalciferol (VITAMIN D-2) 1,250 mcg, oral, Weekly Fycompa 4 mg, oral, Nightly gabapentin (NEURONTIN) 600 mg, oral, 3 times daily lamoTRIgine (LAMICTAL) 50 mg, oral, Daily lisinopril 5 mg, oral, Daily metoprolol tartrate (LOPRESSOR) 25 mg, oral, 2 times daily montelukast (SINGULAIR) 10 mg, oral, Nightly ondansetron (ZOFRAN) 8 mg, oral, Every 8 hours PRN pantoprazole (ProtoNix) 40 mg EC tablet 1 tablet, oral, 2 times daily topiramate (TOPAMAX) 100 mg, oral, Daily umeclidinium-vilanteroL (Anoro Ellipta) 62.5-25 mcg/actuation blister with device 1 puff, inhalation, Daily valACYclovir (VALTREX) 500 mg, oral, Daily REVIEW OF SYSTEMS Review of Systems All other systems reviewed and are negative. VITALS Vitals: 02/09/24 0945 BP: 138/90 Pulse: 58 PHYSICAL EXAM Vitals reviewed. Constitutional: Appearance: Normal and healthy appearance. Well-developed and not in distress. Eyes: Conjunctiva/sclera: Conjunctivae normal. Pupils: Pupils are equal, round, and reactive to light. Neck: Vascular: No JVR. JVD normal. Pulmonary: Effort: Pulmonary effort is normal. Breath sounds: Normal breath sounds. No wheezing. No rhonchi. No rales. Chest: Chest wall: Not tender to palpatation. Cardiovascular: PMI at left midclavicular line. Normal rate. Regular rhythm. Normal S1. Normal S2. Murmurs: There is no murmur. No gallop. No click. No rub. Pulses: Intact distal pulses. Edema: Peripheral edema absent. Abdominal: Tenderness: There is no abdominal tenderness. Musculoskeletal: Normal range of motion. General: No tenderness. Cervical back: Normal range of motion. Skin: General: Skin is warm and dry. Neurological: General: No focal deficit present. Mental Status: Alert and oriented to person, place and time. Psychiatric: Behavior: Behavior is cooperative. ASSESSMENT AND PLAN Diagnoses and all orders for this visit: Chest pain, unspecified type NSVT (nonsustained ventricular tachycardia) (CMS/HCC) Status post placement of implantable loop recorder Atherosclerosis of [place] artery of both lower extremities with intermittent claudication ([facility]/HCC) Aortoiliac occlusive disease ([facility]) HTN (hypertension), benign Hypercholesterolemia Type 2 diabetes mellitus with other circulatory complication, without long-term current use of insulin ([facility]) Diabetes mellitus type II, non insulin dependent ([facility]) BMI 32.0-32.9,adult Bipolar 2 disorder, major depressive episode ([facility]) Anxiety Drug abuse ([facility]) 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 ([facility]) Chronic obstructive pulmonary disease, unspecified COPD type ([facility]) COPD with asthma ([facility]) АННА on CPAP Current every day smoker Hyperlipidemia LDL goal <100 @ASSESSMENTANDPLANTEXT@ documented in this encounterWV[facility] Work Phone: [phone]) [phone] Instructions* Patient Instructions* Jj Allen RN - 02/09/2024 9:15 AM EDT Patient to follow up in [address] Ramiro Bloom MD Please continue higher dose of Atorvastatin, and repeat lab work in 2 months to check cholesterol. Orders in system. Will call with results. No other changes today. Continue same medications and treatments. Patient educated on proper medication use. Patient educated on risk factor modification. Please bring any lab results from other providers / physicians to your next appointment. Please bring all medicines, vitamins, and herbal supplements with you when you come to the office. Prescriptions will not be filled unless you are compliant with your follow up appointments or have a follow up appointment scheduled as per instruction of your physician. Refills should be requested at the time of your visit. I, Jj Allen RN am scribing for and in the presence of Dr. Ramiro Bhandari MD documented in this encounterWV[facility] Work Phone: 1([phone]) 421-307404-02-2024 History of Present illness Narrative* Oliver Auguste PA-C - 02/08/2024 1:30 PM EDT Subjective Hien Lam is a 48 y.o. female who presents for follow-up of Type 2 diabetes mellitus. The initial diagnosis of diabetes was made over 10 years ago . The patient does have a known family history of diabetes. Known complications due to diabetes included peripheral neuropathy, peripheral vascular disease, and obesity Cardiovascular risk factors include diabetes mellitus, obesity (BMI >= 30 kg/m2), sedentary lifestyle, and smoking/ tobacco exposure. The patient is on an RYLEY inhibitor or angiotensin II receptor oswald. The patient has not been previously hospitalized due to diabetic ketoacidosis. Current symptoms/problems include hyperglycemia and paresthesia of the feet. Her clinical course has been stable. Current diabetes regimen is as follows: been without trulicity for 4 months, lispro sliding scale as needed The patient is currently checking the blood glucose 2+ times per day. Patient is using: glucometer Hypoglycemia frequency: n/a Hypoglycemia awareness: Yes Exercise: intermittently Meal panning: She is using avoidance of concentrated sweets. Getting set up for L knee surgery and aortic stent placement. Hopes to find a new plastic surgeon who accepts her insurance for pannus skin reduction. Review of Systems Psychiatric/Behavioral: The patient is not nervous/anxious. Mood stability improved with lamictal start All other systems reviewed and are negative. Objective BP 119/84 (BP Location: Left arm, Patient Position: Sitting) Pulse 92 Ht 1.651 m (5' 5 ) Wt 85.7 kg (189 lb) SpO2 94% BMI 31.45 kg/m Physical Exam Constitutional: Appearance: Normal appearance. She is obese. Cardiovascular: Pulses: Normal pulses. Abdominal: Palpations: Abdomen is soft. Comments: Pendulous panus Skin: Findings: Erythema and rash present. Rash is macular. Comments: Telangectasias on face, rash under R breast with erythematous satellite borders, Rash under panus is erythematous at friction sites, Neurological: General: No focal deficit present. Mental Status: She is alert and oriented to person, place, and time. Mental status is at baseline. Psychiatric: Mood and Affect: Mood normal. Behavior: Behavior normal. Thought Content: Thought content normal. Judgment: Judgment normal. Comments: Talkative - baseline Lab Review Glucose (mg/dL) Date Value 12/10/2023 126 (H) 09/07/2023 111 (H) 04/27/2023 98 12/05/2021 225 (H) 11/20/2021 159 (H) Hemoglobin A1C (%) Date Value 09/07/2023 5.6 02/09/2023 5.9 (A) 11/20/2021 8.5 (A) 04/22/2021 7.5 Bicarbonate (mmol/L) Date Value 12/10/2023 21 09/07/2023 18 (L) 04/27/2023 20 (L) 12/05/2021 28 11/20/2021 27 Urea Nitrogen (mg/dL) Date Value 12/10/2023 15 09/07/2023 15 04/27/2023 21 12/05/2021 15 11/20/2021 24 (H) Creatinine (mg/dL) Date Value 12/10/2023 0.79 09/07/2023 0.70 04/27/2023 0.90 12/05/2021 0.62 11/20/2021 0.95 Health Maintenance: Foot Exam: up to date as of 09/07/23 Eye Exam: due for update, scheduled for tomorrow Lipid Panel: up to date though above goal <70 LDL as of 09/07/23 Urine Albumin: up to date and at goal of <30 as of 09/07/23 Assessment/Plan Type 2 diabetes mellitus, is at goal. A1C, lipid panel, urine albumin labs all due to for update. RX changes: resume Trulicity as 0.75mg once weekly and lispro as per sliding scale as needed Education: interpretation of lab results and blood sugar goals Follow up: I recommend diabetes care be in 6 months with your primary care provider or 4-5 months with new Assembler Arranger. Skip trulicity for 1 week before any surgeries Current Every Day Smoker Work on quitting smoking in order to safely undergo your vascular, knee, and excess skin removal surgeries Meeting with a smoking cessation hypno-therapist is a valid means to trial a non-medication tobaccouse cessation documented in this [facility] Work Phone: [phone]) 197-175104-02-2024 Instructions* Patient Instructions* Oliver Auguste PA-C - 02/08/2024 1:30 PM EDT Type 2 diabetes mellitus, is at goal. A1C, lipid panel, urine albumin labs all due to for update. RX changes: resume Trulicity as 0.75mg once weekly and lispro as per sliding scale as needed Education: interpretation of lab results and blood sugar goals Follow up: I recommend diabetes care be in 6 months with your primary care provider or 4-5 months with new Assembler Arranger. Skip trulicity for 1 week before any surgeries Current Every Day Smoker Work on quitting smoking in order to safely undergo your vascular, knee, and excess skin removal surgeries Meeting with a smoking cessation hypno-therapist is a valid means to trial a non-medication tobaccouse cessation documented in this [facility] Work Phone: [phone]) 535-868803-14-2024 Hospital Discharge instructions Patient Education 01/20/2024 12:48:52 Viral Illness, Adult Viral Illness, Adult Viruses are tiny germs that can get into a person's body and cause illness. There are many different types of viruses, and they cause many types of illness. Viral illnesses can range from mild to severe. They can affect various parts of the body. Short-term conditions that are caused by a virus include colds and the flu (influenza). Long-term conditions that are caused by a virus include herpes, shingles, and HIV (human immunodeficiency virus) infection. A few viruses have been linked to certain cancers. What are the causes? Many types of viruses can cause illness. Viruses invade cells in your body, multiply, and cause theinfected cells to work abnormally or . When these cells , they release more of the virus. When this happens, you develop symptoms of the illness, and the virus continues to spread to other cells. If the virus takes over the function of the cell, it can cause the cell to divide and grow out ofcontrol. This happens when a virus causes cancer. Different viruses get into the body in different ways. You can get a virus by: Swallowing food or water that has come in contact with the virus (is contaminated). Breathing in droplets that have been coughed or sneezed into the air by an infected person. Touching a surface that has been contaminated with the virus and then touching your eyes, nose, or mouth. Being bitten by an insect or animal that carries the virus. Having sexual contact with a person who is infected with the virus. Being exposed to blood or fluids that contain the virus, either through an open cut or during a transfusion. If a virus enters your body, your body's defense system (immune system) will try to fight the virus. You may be at higher risk for a viral illness if your immune system is weak. What are the signs or symptoms? You may have these symptoms, depending on the type of virus and the location of the cells that it invades: Cold and flu viruses: ?Fever. ?Headache. ?Sore throat. ?Muscle aches. ?Stuffy nose (nasal congestion). ?Cough. Digestive system (gastrointestinal) viruses: ?Fever. ?Pain in the abdomen. ?Nausea. ?Diarrhea. Liver viruses (hepatitis): ?Loss of appetite. ?Tiredness. ?Skin or the white parts of your eyes turning yellow (jaundice). Brain and spinal cord viruses: ?Fever. ?Headache. ?Stiff neck. ?Nausea and vomiting. ?Confusion or sleepiness. Skin viruses: ?Warts. ?Itching. ?Rash. Sexually transmitted viruses: ?Discharge. ?Swelling. ?Redness. ?Rash. How is this diagnosed? This condition may be diagnosed based on one or more of the following: Symptoms. Medical history. Physical exam. Blood test, sample of mucus from your lungs (sputum sample), stool sample, or a swab of body fluidsor a skin sore (lesion). How is this treated? Viruses can be hard to treat because they live within cells. Antibiotic medicines do not treat viruses because these medicines do not get inside cells. Treatment for a viral illness may include: Resting and drinking plenty of fluids. Medicines to relieve symptoms. These can include maan-keo-hydicwx medicine for pain and fever, medicines for cough or congestion, and medicines to relieve diarrhea. Antiviral medicines. These medicines are available only for certain types of viruses. Some viral illnesses can be prevented with vaccinations. A common example is the flu shot. Follow these instructions at home: Medicines Take alnu-svj-jyzruny and prescription medicines only as told by your health care provider. If you were prescribed an antiviral medicine, take it as told by your health care provider. Do not stop taking the antiviral even if you start to feel better. Be aware of when antibiotics are needed and when they are not needed. Antibiotics do not treat viruses. You may get an antibiotic if your health care provider thinks that you may have, or are at riskfor, a bacterial infection and you have a viral infection. ?Do not ask for an antibiotic prescription if you have been diagnosed with a viral illness. Antibiotics will not make your illness go away faster. ?Frequently taking antibiotics when they are not needed can lead to antibiotic resistance. When this develops, the medicine no longer works against the bacteria that it normally fights. General instructions Drink enough fluids to keep your urine pale yellow. Rest as much as possible. Return to your normal activities as told by your health care provider. Ask your health care provider what activities are safe for you. Keep all follow-up visits as told by your health care provider. This is important. How is this prevented? To reduce your risk of viral illness: Wash your hands often with soap and water for at least 20 seconds. If soap and water are not available, use hand acid tank liner. Avoid touching your nose, eyes, and mouth, especially if you have not washed your hands recently. If anyone in your household has a viral infection, clean all household surfaces that may have been in contact with the virus. Use soap and hot water. You may also use bleach that you have added waterto (diluted). Stay away from people who are sick with symptoms of a viral infection. Do not share items such as toothbrushes and water bottles with other people. Keep your vaccinations up to date. This includes getting a yearly flu shot. Eat a healthy diet and get plenty of rest. Contact a health care provider if: You have symptoms of a viral illness that do not go away. Your symptoms come back after going away. Your symptoms get worse. Get help right away if you have: Trouble breathing. A severe headache or a stiff neck. Severe vomiting or pain in your abdomen. These symptoms may represent a serious problem that is an emergency. Do not wait to see if the symptoms will go away. Get medical help right away. Call your local emergency services (911 in the [place] Do not drive yourself to the hospital. Summary Viruses are types of germs that can get into a person's body and cause illness. Viral illnesses canrange from mild to severe. They can affect various parts of the body. Viruses can be hard to treat. There are medicines to relieve symptoms, and there are some antiviralmedicines. If you were prescribed an antiviral medicine, take it as told by your health care provider. Do not stop taking the antiviral even if you start to feel better. Contact a health care provider if you have symptoms of a viral illness that do not go away. This information is not intended to replace advice given to you by your health care provider. Make sure you discuss any questions you have with your health care provider. Document Revised: 03/10/2021 Document Reviewed: 09/03/2020 [employer] Patient Education 2022 [employer]. 01/20/2024 12:48:52 Rash, Adult Rash, Adult A rash is a change in the color of your skin. A rash can also change the way your skin feels. Thereare many different conditions and factors that can cause a rash. Some rashes may disappear after a few days, but some may last for a few weeks. Common causes of rashes include: Viral infections, such as: ?Colds. ?Measles. ?Hand, foot, and mouth disease. Bacterial infections, such as: ?Scarlet fever. ?Impetigo. Fungal infections, such as Catherine. Allergic reactions to food, medicines, or skin care products. Follow these instructions at home: The goal of treatment is to stop the itching and keep the rash from spreading. Pay attention to anychanges in your symptoms. Follow these instructions to help with your condition: Medicine Take or apply cxbt-vkg-whlztrq and prescription medicines only as told by your health care provider. These may include: Corticosteroid creams to treat red or swollen skin. Anti-itch lotions. Oral allergy medicines (antihistamines). Oral corticosteroids for severe symptoms. Skin care Apply cool compresses to the affected areas. Do not scratch or rub your skin. Avoid covering the rash. Make sure the rash is exposed to air as much as possible. Managing itching and discomfort Avoid hot showers or baths, which can make itching worse. A cold shower may help. Try taking a bath with: ?Epsom salts. Follow audio video mechanic instructions on the packaging. You can get these at your local pharmacy or grocery store. ?Baking soda. Pour a small amount into the bath as told by your health care provider. ?Colloidal oatmeal. Follow audio video mechanic instructions on the packaging. You can get this at your local pharmacy or grocery store. Try applying baking soda paste to your skin. Stir water into baking soda until it reaches a paste-like consistency. Try applying calamine lotion. This is an wspq-jvb-gejlkee lotion that helps to relieve itchiness. Keep cool and out of the sun. Sweating and being hot can make itching worse. General instructions Rest as needed. Drink enough fluid to keep your urine pale yellow. Wear loose-fitting clothing. Avoid scented soaps, detergents, and perfumes. Use gentle soaps, detergents, perfumes, and other cosmetic products. Avoid any substance that causes your rash. Keep a journal to help track what causes your rash. Write down: ?What you eat. ?What cosmetic products you use. ?What you drink. ?What you wear. This includes jewelry. Keep all follow-up visits as told by your health care provider. This is important. Contact a health care provider if: You sweat at night. You lose weight. You urinate more than normal. You urinate less than normal, or you notice that your urine is a darker color than usual. You feel weak. You vomit. Your skin or the whites of your eyes look yellow (jaundice). Your skin: ?Tingles. ?Is numb. Your rash: ?Does not go away after several days. ?Gets worse. You are: ?Unusually thirsty. ?More tired than normal. You have: ?New symptoms. ?Pain in your abdomen. ?A fever. ?Diarrhea. Get help right away if you: Have a fever and your symptoms suddenly get worse. Develop confusion. Have a severe headache or a stiff neck. Have severe joint pains or stiffness. Have a seizure. Develop a rash that covers all or most of your body. The rash may or may not be painful. Develop blisters that: ?Are on top of the rash. ?Grow larger or grow together. ?Are painful. ?Are inside your nose or mouth. Develop a rash that: ?Looks like purple pinprick-sized spots all over your body. ?Has a bull's eye or looks like a target. ?Is not related to sun exposure, is red and painful, and causes your skin to peel. Summary A rash is a change in the color of your skin. Some rashes disappear after a few days, but some may last for a few weeks. The goal of treatment is to stop the itching and keep the rash from spreading. Take or apply txup-hcb-uqurcop and prescription medicines only as told by your health care provider. Contact a health care provider if you have new or worsening symptoms. Keep all follow-up visits as told by your health care provider. This is important. This information is not intended to replace advice given to you by your health care provider. Make sure you discuss any questions you have with your health care provider. Document Revised: 08/06/2022 Document Reviewed: 08/06/2022 [employer] Patient Education 2022 [employer]. Follow Up Care 01/20/2024 10:59:39 With:Mindy Morgan Address: [address] [place] [address]. [place] [phone] Business (1) When:01/23/2024 12:26:28 Comments:Make sure to follow-up with your information systems supervisor. Call the office to see if they can see you sooner than 27. Follow-up with your primary doctor as well. Return to the emergency room if the rash gets worse, fever or any new symptoms [facility]03-14-2024 Evaluation + Plan noteExtracted from: Title:ED Note Author:Toro Ghotra, Dana Hardy te:01/20/24 1. Flu-like symptoms (R68.89 : Other general symptoms and signs) 2. Skin rash (R21: Rash and other nonspecific skin eruption) Orders: acetaminophen, 650 mg = 2 tab(s), Tab, Oral, Once, Stop date 01/20/24 12:21:00 EDT, STAT, Start date 01/20/24 12:21:00 EDT, 01/20/24 12:21:00 EDT Influenza A&B Ag [facility]03-08-2024 Nurse Note* Aisha Salguero RN - 01/14/2024 9:15 AM EST Post CCTA pt denies feeling dizzy or lightheaded, denies headache. Steady on feet, skin warm pink and dry. Pt verbalized understanding of increased water intake x24 hours, educated on side effects ofmedications. HL removed with tip intact, manual pressure held until hemostasis achieved, 2x2 and coban to site. Pt DC home to self care [facility] Work Phone: 1([phone]) 264-230903-08-2024 Nurse Note* Aisha Salguero RN - 01/14/2024 9:15 AM EST Post CCTA pt denies feeling dizzy or lightheaded, denies headache. Steady on feet, skin warm pink and dry. Pt verbalized understanding of increased water intake x24 hours, educated on side effects ofmedications. HL removed with tip intact, manual pressure held until hemostasis achieved, 2x2 and coban to site. Pt DC home to self care [facility]: 1([phone]) 856-577703-07-2024 History of Present illness Narrative* Jordan Law MD - 01/13/2024 10:30 AM EST Images from the original note were not included. [facility] [place] DEPARTMENT OF VASCULAR SURGERY OUTPATIENT VISIT DATE January 13, 2024 OUTPATIENT VISIT TYPE ESTABLISHED SERVICE DATE: 01/13/2024 SERVICE TIME: 7:34 AM PRIMARY CARE PHYSICIAN: Mindy Morgan MD, MD HISTORY OF PRESENT ILLNESS: Ms.Bernadette Lam is a 47 year old female who presents today for a vascular surgery for routine follow up for lower extremity claudication with known aortoiliac occlusive disease. The patient was found to have diminished ABIs bilaterally on last follow-up with a right ROXY of 0.49 and left ROXY of0.55. The patient does have chronic knee pain. The patient was being seen for preoperative work-up for bilateral knee replacements. She has still not undergone knee replacement as she will need to stop smoking as well as needs vascular surgery clearance. She is ambulating without lower extremity claudication. She complains of knee and hop pain. She hasknown aortic occlusion extending into bilateral common iliac arteries with reconstitution bilaterally at the iliac bifurcation. The patient continues to smoke cigarettes and marijuana. She does have a history of diabetes which is not insulin-dependent. Her most recent hemoglobin A1c completed 09/07/2023 5.6. Patient remains on Aspirin and Lipitor 40 mg. She was seen by cardiology and underwent a loop recorder implantation on 12/10/2023 She was noted to concerning from right subclavian artery stenosis secondary to unequal blood pressures on today's exam. She admits that she does have some claudication symptoms of the right upper extremity. She has no active wound of the right upper extremity. Cardiac MRI 04/09/2023- Completed at [facility] 1. Normal left ventricular cavity size with preserved systolic function. Ejection fraction 62%. 2. Delayed enhancement imaging is normal. No evidence of fibrosis, infiltrative disease, previous myocardial infarction, or inflammation of the left ventricular or right ventricular myocardium. 3. Normal right ventricular cavity size with preserved systolic function. RV EF 59%. No CMR evidence of ARVC. 4. Mild basal asymmetric septal left ventricular hypertrophy. Basal anterior septum 1.3 cm. LEFT VENTRICLE: Quantitative LVEF 62 %. There is mild LV hypertrophy. There is asymmetric LVH. LV cavity size is normal. LV systolic function is normal. VIABILITY: Hyperenhancement is normal. RIGHT VENTRICLE: Quantitative RVEF 59 %. RV wall thickness is normal. RV cavity size is normal. RV systolic function is normal. LV/RV SEPTUM: The ventricular septum is intact. LA/RA SEPTUM: The atrial septum is intact. LEFT ATRIUM: LA cavity size is normal. RIGHT ATRIUM: RA cavity size is normal. PERICARDIUM: Pericardium is normal. There is no pericardial effusion. There are no signs of increased intrapericardial pressures. PLEURAL EFFUSION: There is no pleural effusion. AORTIC VALVE: Aortic valve is trileaflet. There is no aortic regurgitation. There is no aortic stenosis. MITRAL VALVE: Mitral valve leaflets are normal. There is mild mitral regurgitation. TRICUSPID VALVE: Tricuspid valve leaflets are normal. There is mild tricuspid regurgitation. PULMONIC VALVE: Pulmonic valve leaflets are normal. AORTIC ROOT: The aortic root is normal. PAST MEDICAL HISTORY Diagnosis Date Abnormal loss of weight Asthma Bipolar disorder ([facility]) Harjinder's gland hyperplasia of duodenum Constipation, unspecified COPD (chronic obstructive pulmonary disease) (HCC) [place]'s disease (HCC) 2018 diagnosed in 2018 Depression Diabetes mellitus (HCC) Drug abuse (HCC) in remission Epigastric pain H/O ETOH abuse ITB syndrome Nausea and vomiting Neuropathy Polycystic disease, ovaries Rectal bleed Seizure (HCC) last seizure in 2018 Sleep apnea does not use CPAP ,claustrophobic PAST SURGICAL HISTORY Procedure Laterality Date APPENDECTOMY CHOLECYSTECTOMY Lap COLONOSCOPY 02/12/2020 normal colonoscopy and no biopsies were taken EGD 02/12/2020 normal esophagus and stomach, duodenitis TONSILLECTOMY AND ADENOIDECTOMY HX SOCIAL HISTORY Social History Tobacco Use Smoking status: Every Day Packs/day: .5 Types: Cigars, Cigarettes Smokeless tobacco: Never Tobacco comments: 1-2 cigs day Vaping Use Vaping Use: Never used Substance Use Topics Alcohol use: No Comment: 10 years sober Drug use: Yes Types: Marijuana Comment: once a week MEDICATIONS: lamoTRIgine (LAMICTAL) 25 mg tablet Take 200 mg by mouth once daily. BRIVIACT 100 mg tablet Take 200 mg by mouth twice daily. clotrimazole (LOTRIMIN, CLOTRIM) 1 % cream Clotrimazole [facility] Clotrimazole 1 % External Cream APPLY TWICE A DAY TO FUNGAL RASH IN BELLY BUTTON, UNDER BREASTS, AND I Quantity: 30 Refills: 0 Start : 20-Apr-2017 Active 04-20-2017 [facility] ([id number]) diclofenac (VOLTAREN) 1 % topical gel APPLY 4 INCHES OF MEDICATION TO EACH KNEE EVERY 4 HOURS NEEDED umeclidinium-vilanterol (ANORO ELLIPTA) 62.5-25 mcg/actuation inhaler Inhale as instructed q 24 HR. FYCOMPA 4 mg tablet Take 4 mg by mouth daily at bedtime. ergocalciferol 50,000 unit capsule (VITAMIN D2, DRISDOL) Take 50,000 Units by mouth one time a week. ondansetron (ZOFRAN) 8 mg tablet Take 8 mg by mouth every 8 hours as needed for nausea/vomiting. valACYclovir (VALTREX) 500 mg tablet Take 500 mg by mouth once daily. montelukast (SINGULAIR) 10 mg tablet Take 10 mg by mouth daily at bedtime. aspirin, enteric coated (ECOTRIN LOW STRENGTH) 81 mg EC tablet Take 1 tablet by mouth once daily. gabapentin (NEURONTIN) 800 mg tablet Take 1,200 mg by mouth three times a day. topiramate (TOPAMAX) 100 mg tablet Take 100 mg by mouth twice daily. pantoprazole DR (PROTONIX) 40 mg tablet Take 40 mg by mouth twice daily. albuterol HFA (PROVENTIL HFA, VENTOLIN HFA) 90 mcg/actuation inhaler Inhale 2 Puffs as instructed. fenofibrate nanocrystallized (TRICOR) 145 mg tablet Take 145 mg by mouth once daily. atorvastatin (LIPITOR) 20 mg tablet Take 40 mg by mouth once daily. lisinopril (ZESTRIL, PRINIVIL) 10 mg tablet Take 5 mg by mouth once daily. TRULICITY 1.5 mg/0.5 mL pen injector INJECT 1.5MG ONCE WEEKLY ON THE SAME DAY EACH WEEK mifepristone (KORLYM ORAL) Take 600 mg by mouth once daily. (Patient not taking: Reported on 01/13/2024) lubiprostone (AMITIZA) 24 mcg capsule Take 24 mcg by mouth twice daily as needed. (Patient not taking: Reported on 07/16/2022) ertugliflozin (STEGLATRO) 5 mg tablet 15 mg q 24 HR. (Patient not taking: Reported on 07/16/2022) spironolactone (ALDACTONE) 25 mg tablet Take 150 mg by mouth twice daily. (Patient not taking: Reported on 09/06/2023) tiotropium (SPIRIVA RESPIMAT) 2.5 mcg/actuation inhaler Inhale 2 Puffs as instructed once daily. (Patient not taking: Reported on 07/16/2022) ertugliflozin 5 mg tab Take 5 mg by mouth once daily. (Patient not taking: Reported on 07/16/2022) insulin glargine (LANTUS SOLOSTAR, BASAGLAR KWIKPEN) 100 unit/mL (3 mL) Inject 80 Units subcutaneously daily at bedtime. (Patient not taking: Reported on 07/16/2022) exenatide microspheres (BYDUREON) 2 mg/0.65 mL injection Inject 2 mg subcutaneously once each week.(Patient not taking: Reported on 07/16/2022) pioglitazone (ACTOS) 15 mg tablet Take 15 mg by mouth once daily. (Patient not taking: Reported on 07/16/2022) insulin NPH-insulin regular (HumuLIN 70/30) pen Inject subcutaneously daily with breakfast. (Patient not taking: Reported on 07/16/2022) cholecalciferol, Vitamin D3, (VITAMIN D3) 50,000 unit cap capsule Take 50,000 Units by mouth two times a week. (Patient not taking: Reported on 01/13/2024) traMADol (ULTRAM) 50 mg tablet Take 50 mg by mouth every 6 hours as needed. (Patient not taking: Reported on 01/13/2024) ALBUTEROL INHALATION Inhale as instructed. sucralfate (CARAFATE) 1 gram tablet Take 1 g by mouth four times daily as needed. (Patient not taking: Reported on 09/06/2023) budesonide-formoterol (SYMBICORT) 160-4.5 mcg/actuation inhaler Inhale 2 Puffs as instructed twice daily. (Patient not taking: Reported on 07/16/2022) triamcinolone acetonide (NASACORT AQ) 55 mcg nasal inhaler Use 2 Sprays in the nose once daily. (Patient not taking: Reported on 09/06/2023) insulin aspart U-100 (NOVOLOG) 100 unit/mL (3 mL) Inject 30 Units subcutaneously three times daily before meals. Taking 1-3 units daily (Patient not taking: Reported on 09/06/2023) ALLERGIES: ALLERGIES Allergen Reactions Fish Derived Anaphylaxis, Rash Advair Diskus [Flut* Hives Cymbalta [Duloxetin* Swelling Dramamine Ii [Mecli* Swelling Pregabalin Unknown Insulin Aspart Rash PHYSICAL EXAM: BP 83/51 Pulse (!) 52 General: Alert and oriented, No acute distress Integumentary: Normal color, no rash, no lesions. HEENT: No carotid bruits bilaterally Cardiovascular: Normal S1 & S2, no rubs, murmurs or gallops. No JVD., Pulse regular. Lungs: Normal breath sounds, no wheezes or crackles. Abdomen: Soft, non-tender, obese Extremities: No lower extremity wounds, no lower extremity discoloration , no lower extremity edema Neurological: Normal cognition and motor skills. Gait normal. No weakness or sensory deficit. Vascular: Carotid Pulse Right: No bruit - Left: No bruit Brachial Pulse Right: Absent - Left: palpable Radial Pulse Right: Absent - Left: palpable Posterior Tibial Right: Absent - Left: Absent Dorsalis Pedal Right: Absent - Left: Absent Diagnostic tests reviewed for today's visit: Carotid Duplex 12/22/2023- Completed at [facility] Right Carotid: Findings are consistent with 50 to 69% stenosis of the right proximal internal carotid artery. Laminar flow seen by color Doppler. There are elevated velocities in the right ECA that are suggestive of disease. No evidence of hemodynamically significant stenosis of the right common carotid artery. The right vertebral artery is patent with antegrade flow. Left Carotid: Findings are consistent with 50 to 69% stenosis of the left proximal internal carotidartery. Laminar flow seen by color Doppler. Left external carotid artery appears patent with no evidence of stenosis. No evidence of hemodynamically significant stenosis of the left common carotid artery. The left vertebral artery is patent with antegrade flow. ROXY/PVR 01/13/2024 IMPRESSION: Ms. Hien Lam is a 47 year old female with diminished ABIs bilaterally with known aortoiliac occlusive disease who presents for routine follow-up. PLAN and RECOMMENDATIONS: -PVR and ROXY stable since prior exam 4 months ago. No lower extremity wounds or rest pain. She can proceed with knee replacement from vascular surgery standpoint as ROXY is 0.6 bilaterally. Cleared for - Patient noted to have unequal blood pressures in upper extremities concerning from right subclavian artery disease. Continue medical management. 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 Will need completion imaging of the right upper extremity. -Continue 81 mg Aspirin recommend to increase Lipitor 80 mg -Discussed smoking cessation patient continues to smoke daily. Trailing Wellbutrin -Diabetes with most recent hemoglobin A1c 5.6 follows with endocrinology - Cardiology following the patient with plans for loop recorder -Plan to see patient back 4 months for routine follow-up with ROXY and PVR as well as CTA of chest, abdomen, and pelvis when post op from knee replacement surgery. Counseled patient should she developrest pain or active wounds to call for sooner appointment. - All questions answered. Patient is in agreement with the above plan SIGNATURE: Jordan Law MD PATIENT NAME: Hien Lam DATE: January 13, 2024 TIME: 7:34 AM documented in [facility] History of Present illness Narrative* Analia Ortiz RN - 01/13/2024 10:00 AM EST Radiology Service Progress Note DATE OF SERVICE: January 13, 2024 TIME: 9:16 AM PATIENT WEIGHT: 225 LBS PATIENT IDENTITY VERIFICATION COMPLETED USING TWO (2) STANDARD IDENTIFIERS: Name and Date of confirmed by patient verbally and Name and Date of confirmed by identification band. FALL SCREENING: Has the patient had 2 falls in the last year or 1 fall with injury or currently using an Ambulatory Assistive Device (Walker, Cane, Wheelchair, Crutches, etc.)? Yes, Patient High Riskfor Falls What interventions were put in place to prevent falls during this visit? Instructed Patient to Callfor Help if Needed and Offered Assistance with Transfers/Clothing PATIENT GENDER DATA: Female. status: : No status: NO. ALLERGIES: Reviewed and unchanged CONTRAST ALLERGY: No EXAM: CT -CONTRAST INDUCED NEPHROPATHY RISK FACTORS: Not applicable CREATININE: Creatinine Date Value Ref Range Status 02/09/2020 0.65 0.58 - 0.96 mg/dL Final Creatinine (POCT) Date Value Ref Range Status 07/16/2022 0.60 (A) 0.7 - 1.4 mg/dL Final 12/02/2020 0.80 0.7 - 1.4 mg/dL Final eGFR (POCT) Date Value Ref Range Status 07/16/2022 >60 mL/min/1.73 m2 Final eGFR- (POCT) Date Value Ref Range Status 12/02/2020 >60 mL/min/1.73 m2 Final P.O.C.T. RESULTS: N/A January 13, 2024 TREATMENT: No Hydration needed. IV SITE: Ambulatory: A peripheral IV was started in the Left forearm with a Angio cath: 20 gauge. and A Saline lock was inserted per protocol IV SITE APPEARANCE: Clean,Dry and Intact SIGNATURE: Analia Ortiz RN PATIENT NAME: Hien Lam DATE: January 13, 2024 TIME: 9:16 AM * Alcides Perez RT(R) - 01/13/2024 10:00 AM EST Radiology Service Progress Note PATIENT NAME: Hien Lam DATE OF SERVICE: January 13, 2024 TIME: 9:33 AM PATIENT IDENTITY VERIFICATION COMPLETED USING TWO (2) IDENTIFIERS: Name and Date of confirmedby patient verbally and Name and Date of confirmed by identification band. FALL SCREENING: Has the patient had 2 falls in the last year or 1 fall with injury or currently using an Ambulatory Assistive Device (Walker, Cane, Wheelchair, Crutches, etc.)? No PATIENT GENDER DATA: Female. status: : No status: NO. PATIENT RELEVANT IMPLANT DATA REVIEWED: Yes PATIENT PRESENTS WITH AN IMPLANTABLE OR ATTACHED SALES CONSULTING DIRECTOR: No RADIOLOGY DEPARTMENT: CT; Exam(s) Completed: CTA Cardiac PERIPHERAL IV DATA: Site assessment: Clean,Dry and Intact, Site disposition Discontinued SIGNED BY: RT Ozzy(R) January 13, 2024 9:33 AM documented in this encounterOhio[facility] History of Present illness Narrative* Ramiro Bhandari MD - 12/15/2023 2:00 PM EST CARDIOLOGY OFFICE VISIT CHIEF COMPLAINT HISTORY OF PRESENT ILLNESS The patient has been having some problems with chest discomfort and dyspnea with exertion. Her symptoms sound suspicious for myocardial ischemia. It sometimes difficult to get a good history on her. Because of her past history of significant peripheral arterial disease I am going to obtain a CT coronary angiogram to further evaluate. She denies any significant palpitations or syncope. She does have a loop recorder in by Dr. PIPER. She denies any problem with her current medication. Impression: Chest pain, with walking and shortness of breath- will proceed with CCTA History of nonsustained ventricular tachycardia on event monitor, Dr. Ventura Loop Recorder in place, Dr. Ventura managing Normal left ventricular systolic function by echocardiogram 2022 No evidence of myocardial ischemia per stress test 2022 Obesity History of bronchial asthma History of some sort of atherosclerotic disease of left iliac artery, [facility]Chiari Syndrome [place] Syndrome Past Medical History Past Medical History: Diagnosis Date Asthma Current smoker Diabetes mellitus (CMS/HCC) Disease of thyroid gland History of Chiari malformation Hyperlipidemia Hypertension OCD (obsessive compulsive disorder) Other disorders of lung Lung trouble Personal history of other diseases of the digestive system History of gastroesophageal reflux (GERD) Personal history of other diseases of the musculoskeletal system and connective tissue History of arthritis Personal history of other diseases of the nervous system and sense organs History of sleep apnea Personal history of other diseases of the respiratory system History of chronic obstructive lung disease Personal history of other diseases of the respiratory system History of bronchitis Personal history of other diseases of the respiratory system History of asthma Personal history of other endocrine, nutritional and metabolic disease History of diabetes mellitus Personal history of other endocrine, nutritional and metabolic disease History of thyroid disorder Personal history of other mental and behavioral disorders History of depression Personal history of other mental and behavioral disorders History of mental disorder Personal history of other specified conditions History of snoring Social History Social History Tobacco Use Smoking status: Every Day Packs/day: .5 Types: Cigarettes Smokeless tobacco: Never Substance Use Topics Alcohol use: Not Currently Comment: quit 2007 Drug use: Not Currently Types: Marijuana Family History Family History Problem Relation Name Age of Onset No Known Problems Mother No Known Problems Father Allergies: Allergies Allergen Reactions Duloxetine Unknown Pregabalin Unknown Shellfish Derived Unknown Outpatient Medications: Current Outpatient Medications Medication Instructions albuterol (Ventolin HFA) 90 mcg/actuation inhaler 2 puffs, inhalation, Every 6 hours PRN atorvastatin (LIPITOR) 40 mg, oral, Nightly blood sugar diagnostic (YongCheTouch Verio test strips) strip Test blood sugars 4 times a day as directed Briviact 200 mg, oral, 2 times daily buPROPion SR (Wellbutrin SR) 150 mg 12 hr tablet cholecalciferol (Vitamin D-3) 125 MCG (5000 UT) capsule 1 capsule, oral, Weekly, Once weekly on wednesday clotrimazole (Lotrimin) 1 % cream 1 Application, Topical, 2 times daily diclofenac sodium (Voltaren) 1 % gel gel APPLY 4 INCHES OF MEDICATION TO EACH KNEE EVERY 4 HOURS ASNEEDED ergocalciferol (VITAMIN D-2) 1,250 mcg, oral, Weekly Fycompa 4 mg, oral, Nightly gabapentin (NEURONTIN) 600 mg, oral, 3 times daily lamoTRIgine (LAMICTAL) 50 mg, oral, Daily lisinopril 5 mg, oral, Daily metoprolol tartrate (LOPRESSOR) 25 mg, oral, 2 times daily montelukast (SINGULAIR) 10 mg, oral, Nightly ondansetron (ZOFRAN) 8 mg, oral, Every 8 hours PRN pantoprazole (ProtoNix) 40 mg EC tablet 1 tablet, oral, 2 times daily spironolactone (ALDACTONE) 50 mg, oral, 2 times daily topiramate (TOPAMAX) 100 mg, oral, Daily Trulicity 1.5 mg, subcutaneous, Weekly umeclidinium-vilanteroL (Anoro Ellipta) 62.5-25 mcg/actuation blister with device 1 puff, inhalation, Daily valACYclovir (VALTREX) 500 mg, oral, Daily REVIEW OF SYSTEMS Review of Systems Constitutional: Positive for malaise/fatigue. Cardiovascular: Positive for palpitations. Respiratory: Positive for shortness of breath. All other systems reviewed and are negative. VITALS Vitals: 12/15/23 1408 BP: 126/76 Pulse: 60 PHYSICAL EXAM Vitals reviewed. Constitutional: Appearance: Normal and healthy appearance. Well-developed and not in distress. Eyes: Conjunctiva/sclera: Conjunctivae normal. Pupils: Pupils are equal, round, and reactive to light. Neck: Vascular: Carotid bruit present. No JVR. JVD normal. Pulmonary: Effort: Pulmonary effort is normal. Breath sounds: Normal breath sounds. No wheezing. No rhonchi. No rales. Chest: Chest wall: Not tender to palpatation. Cardiovascular: PMI at left midclavicular line. Normal rate. Regular rhythm. Normal S1. Normal S2. Murmurs: There is no murmur. No gallop. No click. No rub. Pulses: Intact distal pulses. Edema: Peripheral edema absent. Abdominal: Tenderness: There is no abdominal tenderness. Musculoskeletal: Normal range of motion. General: No tenderness. Cervical back: Normal range of motion. Skin: General: Skin is warm and dry. Neurological: General: No focal deficit present. Mental Status: Alert and oriented to person, place and time. Psychiatric: Behavior: Behavior is cooperative. ASSESSMENT AND PLAN Diagnoses and all orders for this visit: Chest pain, unspecified type Shortness of breath HTN (hypertension), benign Hypercholesterolemia Atherosclerosis of 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 Ramiro Bloom MD Office will arrange Catscan Coronary arteries in near future. Will also arrange Carotid Ultrasound Please complete lab work prior to Catscan- orders in system. No other changes today. Continue same medications and treatments. Patient educated on proper medication use. Patient educated on risk factor modification. Please bring any lab results from other providers / physicians to your next appointment. Please bring all medicines, vitamins, and herbal supplements with you when you come to the office. Prescriptions will not be filled unless you are compliant with your follow up appointments or have a follow up appointment scheduled as per instruction of your physician. Refills should be requested at the time of your visit. I, Jj Allen RN am scribing for and in the presence of Dr. Ramiro Bhandari MD documented in this encounterWVUM[facility] Work Phone: [phone]) 482-260502-02-2024 Hospital Discharge instructions* Discharge Instructions* Analia Gray APRN-UZAIR - 12/10/2023 9:50 AM EST Images from the original note were not included. Home going instructions after a loop recorder implant After a procedure using sedation You should return home and rest for the remainder of the day and evening. It is recommended a responsible adult be with you for the first 24 hours after the procedure. Do not make any legal decisions for 24 hours after your procedure. Do not drink alcoholic beverages for 24 hours after your procedure. Wound care Leave the surgical dressing in place for 7 days post implant The dressing will be removed at the 1 week follow up appointment. The dressing is water resistant. You may shower and avoid water directly hitting the dressing. Inspect your incisional site/ dressing each day It is normal for the area around the incision to be tender for a few weeks following surgery. Apply ice to the site 3-4 times per day in 20 minute intervals for at least 2 days after surgery. Pain relievers such as Tylenol or Motrin are usually sufficient for pain relief. Activity Avoid driving for 24 hours If you have had passing out spells or previously restricted from driving, discuss driving restrictions with your doctor. Report to your physician Increased redness, swelling, drainage or gaping of your incisional site Increased pain at site unrelieved by pain medication Fever or chills prior to the 1 week appointment Bright red bleeding from the incisional site or complete saturation of the dressing Dizziness, lightheadedness, or passing out Remote monitoring/ Device ID card You have been instructed by the device company employment program representative regarding remote home monitoring. There are multiple types of home monitoring units, please follow the instructions given If you have questions please contact the device clinic for further instruction After implant you will receive a temporary card. Permanent card will come in the mail in the next few weeks. It is important that you carry your ID card with you at all times. Follow up appointments Incision (wound) check in 1 week Appointment for device check and provider follow up in the next 4 months These appointments will be scheduled and appear on your after visit summary documented in this [facility] Work Phone: 1(710) 389-573402-02-2024 NoteTable formatting from the original result was not included. Procedure Details: Event recorder implantation Summary: Successful implantation of an event recorder Recommendations: 1. A chest X-ray should be performed and telemetry monitoring continued for 24 hours. 2. A 12 lead ECG should be performed prior to discharge from the hospital. 3. The patient should continue with the present medications. Discharge: 1. The patient recovered uneventfully from the effects of conscious sedation. The patient left the EP laboratory in stable condition and was transferred to the telemetry unit . Follow up: 1. The patient will be discharged the same day of the procedure if recovery parameters are appropriate. The patient should be alert for bleeding, swelling, or signs of infection. The patient should call the professor of education immediately if symptoms recur, or for any problems. The patient has been instructed accordingly. 2. Follow up with [facility] office in seven days for post-operative wound assessment. 3. Follow up with Device Clinic in twelve weeks for routine device analysis and reprogramming if necessary. Remote monitoring will be instituted if possible. Procedures: Pocket fashioned. Loop recorder implantation. Device testing. Patient history: Please refer to the detailed history and physical on the patient's medical chart. History of palpitations and dizziness. Patient is a scheduled for loop recorder implantation. Procedure narrative: The risks, benefits, and alternatives to the procedure and sedation were explained to the patient, and informed consent was obtained. The patient was in the fasting state. A grounding pad was placed. Self-adhesive anterior-posterior defibrillation pads were applied. A ZOLL defibrillator was used for monitoring and the defibrillator waveform was set to biphasic. The patient was set up for continuous monitoring of surface 12 lead ECG and pulse oximetry. Blood pressure was monitored. The procedure was performed under IV conscious sedation. The upper chest was prepped and draped in the usual sterile fashion. Local anesthesia: After preoperative IV antibiotic was completely infused, subcutaneous tissues around the fourth and fifth intercostal space along the left parasternal line, were infiltrated with Lidocaine 1 % for local anesthesia. 1. An incision was made with a #15 scalpel. 2. A loop recorder was deployed and inserted in the subcutaneous area. Appropriate sensing was obtained. 3. The skin was approximated with Dermabond. Strips were placed. A dressing was placed. The patient was transferred to the telemetry unit. Complications: The patient tolerated the procedure without any complications or incident. Prepared and signed by Tolerance: good Complications: None Estimated blood loss 2 cc Device implanted [employer] loop recorder Linq 2 MRI compatible [id number] Note* Pre-Sedation Documentation - Geovany Ventura MD - 12/10/2023 9:11 AM EST Sedation Plan ASA 2 Mallampati class: II. Risks, benefits, and alternatives discussed with patient. [facility] Work Phone: [phone]) 766-711702-02-2024 Miscellaneous Notes* Pre-Sedation Documentation - Geovany Ventura MD - 12/10/2023 9:11 AM EST Sedation Plan ASA 2 Mallampati class: II. Risks, benefits, and alternatives discussed with patient. documented in this encounterWVUMed[facility] Work Phone: [phone]) 148-206902-02-2024 Attending History and physical note* Geovany Ventura MD - 12/10/2023 8:23 AM EST H&P reviewed. The patient was examined and there are no changes to the H&P. Source Note - Geovany Ventura MD - 11/24/2023 12:30 PM EST CARDIOLOGY OFFICE VISIT CHIEF COMPLAINT Chief Complaint Patient presents with Follow-up Discuss loop alternative HISTORY OF PRESENT ILLNESS HPI 48-year-old female with a past medical history of cystic compulsive disorder and also history of Chiari malformation with brain surgery done approximately a year ago. Patient has been followed by gynecology service since June last year after patient was admitted to outside hospital. 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 Then she got some radiation into the right arm. Then she started noticing right arm and right lower extremity weakness and she went home with those symptoms. At home her blood pressure systolic was found to be in the 80s with heart rates in the 40s. She came to emergency departmentfor an evaluation. During telemetry patient states that her heart rate was always bradycardic. She was referred for cardiology for an evaluation. She had an a stress test and echocardiogram and also a Holter monitor that were unremarkable. Echocardiogram in December 2022 shows left ventricular ejection fraction of 60 to 65% with no significant valvular normalities. Holter monitor in October 2022 shows underlying rhythm of sinus rhythmwith minimum heart rate 45 bpm maximal heart rate of 129 beats per hours heart of 64 bpm. There were brief episodes of nonsustained supraventricular tachycardia up to 4 beats of duration. Asymptomatic. No evidence of heart block or atrial fibrillation. Had a stress test in December 2022 shows no evidence of ischemia with a left ventricular ejection fraction of 69%. Due to persisting of symptoms of palpitations chest discomfort and sometimes diaphoresis an event monitor was ordered in March 2023. Event monitor shows underlying rhythm was sinus rhythm. There were 23 triggered events with symptoms that they were not specified. 1 of these episodes were related withwide-complex tachycardia total of 9 beats that occurred on February 22, 2023 at 1 in the morning. rateof 173 bpm. Based on the results of the event monitor a cardiac MRI was done that shows left ventricular ejection fraction of 62% with delayed enhancement normal. No significant valvular normalities with mild asymmetric left ventricular hypertrophy. During the last visit, we discussed the option of loop recorder implantation. Apparently for insurance did not cover her for this procedure. Today she complains of multiple symptoms including palpitations diaphoresis dizziness lightheadedness chest discomfort and also some pain in the legs. She hasbeen followed by vascular surgery [facility]. EKG performed today shows sinus rhythm at a rate of 70 bpm QRS duration 80 ms QT corrected 440 ms. Rhythm strip shows the same pattern. Past Medical History Past Medical History: Diagnosis Date Other disorders of lung Lung trouble Personal history of other diseases of the digestive system History of gastroesophageal reflux (GERD) Personal history of other diseases of the musculoskeletal system and connective tissue History of arthritis Personal history of other diseases of the nervous system and sense organs History of sleep apnea Personal history of other diseases of the respiratory system History of chronic obstructive lung disease Personal history of other diseases of the respiratory system History of bronchitis Personal history of other diseases of the respiratory system History of asthma Personal history of other endocrine, nutritional and metabolic disease History of diabetes mellitus Personal history of other endocrine, nutritional and metabolic disease History of thyroid disorder Personal history of other mental and behavioral disorders History of depression Personal history of other mental and behavioral disorders History of mental disorder Personal history of other specified conditions History of snoring Social History Social History Tobacco Use Smoking status: Every Day Packs/day: .5 Types: Cigarettes Smokeless tobacco: Never Substance Use Topics Alcohol use: Not Currently Drug use: Yes Types: Marijuana Family History Family History Problem Relation Name Age of Onset No Known Problems Mother No Known Problems Father Allergies: Allergies Allergen Reactions Duloxetine Unknown Pregabalin Unknown Shellfish Derived Unknown Outpatient Medications: Current Outpatient Medications Medication Instructions albuterol (Ventolin HFA) 90 mcg/actuation inhaler 2 puffs, inhalation, Every 6 hours PRN atorvastatin (LIPITOR) 40 mg, oral, Nightly blood sugar diagnostic (YongCheTouch Verio test strips) strip Test blood sugars 4 times a day as directed Briviact 200 mg, oral, 2 times daily buPROPion SR (Wellbutrin SR) 150 mg 12 hr tablet cholecalciferol (Vitamin D-3) 125 MCG (5000 UT) capsule 1 capsule, oral, Weekly, Once weekly on wednesday clotrimazole (Lotrimin) 1 % cream 1 Application, Topical, 2 times daily diclofenac sodium (Voltaren) 1 % gel gel APPLY 4 INCHES OF MEDICATION TO EACH KNEE EVERY 4 HOURS ASNEEDED ergocalciferol (VITAMIN D-2) 1,250 mcg, oral, Weekly Fycompa 4 mg, oral, Nightly gabapentin (NEURONTIN) 600 mg, oral, 3 times daily insulin lispro (HUMALOG) 1 Units, subcutaneous, 3 times daily with meals, Sliding scale lamoTRIgine (LAMICTAL) 50 mg, oral, Daily lisinopril 5 mg, oral, Daily montelukast (SINGULAIR) 10 mg, oral, Nightly ondansetron (ZOFRAN) 8 mg, oral, Every 8 hours PRN pantoprazole (ProtoNix) 40 mg EC tablet 1 tablet, oral, 2 times daily spironolactone (ALDACTONE) 50 mg, oral, 2 times daily topiramate (TOPAMAX) 100 mg, oral, Daily Trulicity 1.5 mg, subcutaneous, Weekly umeclidinium-vilanteroL (Anoro Ellipta) 62.5-25 mcg/actuation blister with device 1 puff, inhalation, Daily valACYclovir (VALTREX) 500 mg, oral, Daily REVIEW OF SYSTEMS Review of Systems Constitutional: Positive for night sweats. Cardiovascular: Positive for palpitations. Negative for chest pain and dyspnea on exertion. VITALS Vitals: 11/24/23 1227 BP: 102/60 Pulse: 70 PHYSICAL EXAM Constitutional: General: Awake. Appearance: Normal and healthy appearance. Well-developed and not in distress. Neck: Vascular: No JVR. JVD normal. Pulmonary: Effort: Pulmonary effort is normal. Breath sounds: Normal breath sounds. No wheezing. No rhonchi. No rales. Chest: Chest wall: Not tender to palpatation. Cardiovascular: PMI at left midclavicular line. Normal rate. Regular rhythm. Normal S1. Normal S2. Murmurs: There is no murmur. No gallop. No click. No rub. Pulses: Intact distal pulses. Edema: Peripheral edema absent. Abdominal: Tenderness: There is no abdominal tenderness. Musculoskeletal: Normal range of motion. General: No tenderness. Skin: General: Skin is warm and dry. Neurological: General: No focal deficit present. Mental Status: Alert and oriented to person, place and time. ASSESSMENT AND PLAN Clinical impression 1. Evidence of bradycardia during admission in outside hospital. 2. Palpitations 3. Evidence of nonsustained ventricular tachycardia on event monitor 4. Normal left ventricular function per echocardiogram in 2022 and cardiac MRI in 2022 5. No evidence of ischemia per stress test in 2022 6. 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 Obsessive-compulsive disorder Plan-recommendations Patient still having multiple symptoms including palpitations and dizziness. She has a history of bradycardia and also wide-complex rhythm by event monitors in the past. Patient needs to have long-term monitoring with a loop recorder implantation.Procedure, risk, benefits and possible complicationswere explained to patient. All questions were answered. Patient agrees with plan. Patient also needs to cut the dose of caffeine and also caffeine drinks that she takes to try to counteract her episodes of hypotension. She needs to talk to primary cardiology service for adjustmentof medical therapy if needed. Patient also was instructed to talk to vascular surgery regarding pain in her legs and questionableblood clots in her legs. Follow my office 7 days postprocedure for wound assessment. Risk factor modification and lifestyle modification discussed with patient. Diet , exercise and hydration discussed with patient. I have personally review with patient during this office visit, laboratory data, echocardiogram results, stress test results, Holter-event monitor results prior and after the last electrophysiology visit. All questions has been answered. Please excuse any errors in grammar or translation related to this dictation. Voice recognition software was utilized to prepare this document. [facility] Work Phone: 1([phone]) 212-441702-02-2024 History and physical note* Geovany Ventura MD - 12/10/2023 8:23 AM EST H&P reviewed. The patient was examined and there are no changes to the H&P. Source Note - Geovany Ventura MD - 11/24/2023 12:30 PM EST CARDIOLOGY OFFICE VISIT CHIEF COMPLAINT Chief Complaint Patient presents with Follow-up Discuss loop alternative HISTORY OF PRESENT ILLNESS HPI 48-year-old female with a past medical history of cystic compulsive disorder and also history of Chiari malformation with brain surgery done approximately a year ago. Patient has been followed by gynecology service since June last year after patient was admitted to outside hospital. 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 Then she got some radiation into the right arm. Then she started noticing right arm and right lower extremity weakness and she went home with those symptoms. At home her blood pressure systolic was found to be in the 80s with heart rates in the 40s. She came to emergency departmentfor an evaluation. During telemetry patient states that her heart rate was always bradycardic. She was referred for cardiology for an evaluation. She had an a stress test and echocardiogram and also a Holter monitor that were unremarkable. Echocardiogram in December 2022 shows left ventricular ejection fraction of 60 to 65% with no significant valvular normalities. Holter monitor in October 2022 shows underlying rhythm of sinus rhythmwith minimum heart rate 45 bpm maximal heart rate of 129 beats per hours heart of 64 bpm. There were brief episodes of nonsustained supraventricular tachycardia up to 4 beats of duration. Asymptomatic. No evidence of heart block or atrial fibrillation. Had a stress test in December 2022 shows no evidence of ischemia with a left ventricular ejection fraction of 69%. Due to persisting of symptoms of palpitations chest discomfort and sometimes diaphoresis an event monitor was ordered in March 2023. Event monitor shows underlying rhythm was sinus rhythm. There were 23 triggered events with symptoms that they were not specified. 1 of these episodes were related withwide-complex tachycardia total of 9 beats that occurred on February 22, 2023 at 1 in the morning. rateof 173 bpm. Based on the results of the event monitor a cardiac MRI was done that shows left ventricular ejection fraction of 62% with delayed enhancement normal. No significant valvular normalities with mild asymmetric left ventricular hypertrophy. During the last visit, we discussed the option of loop recorder implantation. Apparently for insurance did not cover her for this procedure. Today she complains of multiple symptoms including palpitations diaphoresis dizziness lightheadedness chest discomfort and also some pain in the legs. She hasbeen followed by vascular surgery at [facility]. EKG performed today shows sinus rhythm at a rate of 70 bpm QRS duration 80 ms QT corrected 440 ms. Rhythm strip shows the same pattern. Past Medical History Past Medical History: Diagnosis Date Other disorders of lung Lung trouble Personal history of other diseases of the digestive system History of gastroesophageal reflux (GERD) Personal history of other diseases of the musculoskeletal system and connective tissue History of arthritis Personal history of other diseases of the nervous system and sense organs History of sleep apnea Personal history of other diseases of the respiratory system History of chronic obstructive lung disease Personal history of other diseases of the respiratory system History of bronchitis Personal history of other diseases of the respiratory system History of asthma Personal history of other endocrine, nutritional and metabolic disease History of diabetes mellitus Personal history of other endocrine, nutritional and metabolic disease History of thyroid disorder Personal history of other mental and behavioral disorders History of depression Personal history of other mental and behavioral disorders History of mental disorder Personal history of other specified conditions History of snoring Social History Social History Tobacco Use Smoking status: Every Day Packs/day: .5 Types: Cigarettes Smokeless tobacco: Never Substance Use Topics Alcohol use: Not Currently Drug use: Yes Types: Marijuana Family History Family History Problem Relation Name Age of Onset No Known Problems Mother No Known Problems Father Allergies: Allergies Allergen Reactions Duloxetine Unknown Pregabalin Unknown Shellfish Derived Unknown Outpatient Medications: Current Outpatient Medications Medication Instructions albuterol (Ventolin HFA) 90 mcg/actuation inhaler 2 puffs, inhalation, Every 6 hours PRN atorvastatin (LIPITOR) 40 mg, oral, Nightly blood sugar diagnostic ([employer] test strips) strip Test blood sugars 4 times a day as directed Briviact 200 mg, oral, 2 times daily buPROPion SR (Wellbutrin SR) 150 mg 12 hr tablet cholecalciferol (Vitamin D-3) 125 MCG (5000 UT) capsule 1 capsule, oral, Weekly, Once weekly on wednesday clotrimazole (Lotrimin) 1 % cream 1 Application, Topical, 2 times daily diclofenac sodium (Voltaren) 1 % gel gel APPLY 4 INCHES OF MEDICATION TO EACH KNEE EVERY 4 HOURS ASNEEDED ergocalciferol (VITAMIN D-2) 1,250 mcg, oral, Weekly Fycompa 4 mg, oral, Nightly gabapentin (NEURONTIN) 600 mg, oral, 3 times daily insulin lispro (HUMALOG) 1 Units, subcutaneous, 3 times daily with meals, Sliding scale lamoTRIgine (LAMICTAL) 50 mg, oral, Daily lisinopril 5 mg, oral, Daily montelukast (SINGULAIR) 10 mg, oral, Nightly ondansetron (ZOFRAN) 8 mg, oral, Every 8 hours PRN pantoprazole (ProtoNix) 40 mg EC tablet 1 tablet, oral, 2 times daily spironolactone (ALDACTONE) 50 mg, oral, 2 times daily topiramate (TOPAMAX) 100 mg, oral, Daily Trulicity 1.5 mg, subcutaneous, Weekly umeclidinium-vilanteroL (Anoro Ellipta) 62.5-25 mcg/actuation blister with device 1 puff, inhalation, Daily valACYclovir (VALTREX) 500 mg, oral, Daily REVIEW OF SYSTEMS Review of Systems Constitutional: Positive for night sweats. Cardiovascular: Positive for palpitations. Negative for chest pain and dyspnea on exertion. VITALS Vitals: 11/24/23 1227 BP: 102/60 Pulse: 70 PHYSICAL EXAM Constitutional: General: Awake. Appearance: Normal and healthy appearance. Well-developed and not in distress. Neck: Vascular: No JVR. JVD normal. Pulmonary: Effort: Pulmonary effort is normal. Breath sounds: Normal breath sounds. No wheezing. No rhonchi. No rales. Chest: Chest wall: Not tender to palpatation. Cardiovascular: PMI at left midclavicular line. Normal rate. Regular rhythm. Normal S1. Normal S2. Murmurs: There is no murmur. No gallop. No click. No rub. Pulses: Intact distal pulses. Edema: Peripheral edema absent. Abdominal: Tenderness: There is no abdominal tenderness. Musculoskeletal: Normal range of motion. General: No tenderness. Skin: General: Skin is warm and dry. Neurological: General: No focal deficit present. Mental Status: Alert and oriented to person, place and time. ASSESSMENT AND PLAN Clinical impression 1. Evidence of bradycardia during admission in outside hospital. 2. Palpitations 3. Evidence of nonsustained ventricular tachycardia on event monitor 4. Normal left ventricular function per echocardiogram in 2022 and cardiac MRI in 2022 5. No evidence of ischemia per stress test in 2022 6. 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 Obsessive-compulsive disorder Plan-recommendations Patient still having multiple symptoms including palpitations and dizziness. She has a history of bradycardia and also wide-complex rhythm by event monitors in the past. Patient needs to have long-term monitoring with a loop recorder implantation.Procedure, risk, benefits and possible complicationswere explained to patient. All questions were answered. Patient agrees with plan. Patient also needs to cut the dose of caffeine and also caffeine drinks that she takes to try to counteract her episodes of hypotension. She needs to talk to primary cardiology service for adjustmentof medical therapy if needed. Patient also was instructed to talk to vascular surgery regarding pain in her legs and questionableblood clots in her legs. Follow my office 7 days postprocedure for wound assessment. Risk factor modification and lifestyle modification discussed with patient. Diet , exercise and hydration discussed with patient. I have personally review with patient during this office visit, laboratory data, echocardiogram results, stress test results, Holter-event monitor results prior and after the last electrophysiology visit. All questions has been answered. Please excuse any errors in grammar or translation related to this dictation. Voice recognition software was utilized to prepare this document. documented in this [facility] Work Phone: [phone] History of Present illness Narrative* Luis Armando Schwab MD - 11/25/2023 11:00 AM ESTAssociated Order(s): L Inj/Asp: L knee Post-Procedure Diagnose(s): Primary osteoarthritis of both knees Orthopaedic Surgery New Patient Clinic Note Hien Lam [id number] November 25, 2023 Reason for Consult: Left knee osteoarthritis HPI: This is a pleasant 48-year-old female with multiple medical comorbidities at baseline including diabetes, obesity, syringomyelia, multiple GI issues, Mario's, as well as significant bilateral peripheral vascular disease with decreased ABIs bilaterally. She has had multiple years of left greater than right knee pain. She is currently trying a brace. She is never done physical therapy. She is never tried injections. She states that she was interested in getting a knee injection about 4 years ago but put it off. She seen another orthopedic surgeon closer to her home who said she was too high risk for any surgery. She is here to discuss total knee replacement surgery. She is also had recently an arrhythmia and had a loop monitor placed or is at least pending to and is also recently seen her vascular surgeon team for preoperative total knee replacement clearance. She does occasionallytake NSAIDs and states that that does seem to help with the pain. ROS: 15 point review of systems collected per intake sheet and negative except for as noted in HPI. PMH: Past Medical History: Diagnosis Date Other disorders of lung Lung trouble Personal history of other diseases of the digestive system History of gastroesophageal reflux (GERD) Personal history of other diseases of the musculoskeletal system and connective tissue History of arthritis Personal history of other diseases of the nervous system and sense organs History of sleep apnea Personal history of other diseases of the respiratory system History of chronic obstructive lung disease Personal history of other diseases of the respiratory system History of bronchitis Personal history of other diseases of the respiratory system History of asthma Personal history of other endocrine, nutritional and metabolic disease History of diabetes mellitus Personal history of other endocrine, nutritional and metabolic disease History of thyroid disorder Personal history of other mental and behavioral disorders History of depression Personal history of other mental and behavioral disorders History of mental disorder Personal history of other specified conditions History of snoring No history of DVT. PSH: Past Surgical History: Procedure Laterality Date BRAIN SURGERY GALLBLADDER SURGERY 10/14/2017 Gallbladder Surgery TONSILLECTOMY 10/14/2017 Tonsillectomy With Adenoidectomy SHx: No smoking. No IVDU Meds: Current Outpatient Medications on File Prior to Visit Medication Sig Dispense Refill albuterol (Ventolin HFA) 90 mcg/actuation inhaler Inhale 2 puffs every 6 hours if needed. atorvastatin (Lipitor) 40 mg tablet TAKE 1 TABLET BY MOUTH EVERYDAY AT BEDTIME 90 tablet 3 [] blood pressure monitor kit 1 kit 1 time for 1 dose. 1 kit 0 blood sugar diagnostic ([employer] test strips) strip Test blood sugars 4 times a day as directed Briviact 100 mg tablet tablet TAKE 2 TABLETS BY MOUTH TWICE A DAY 120 tablet 5 buPROPion SR (Wellbutrin SR) 150 mg 12 hr tablet cholecalciferol (Vitamin D-3) 125 MCG (5000 UT) capsule Take 1 capsule (125 mcg) by mouth 1 (one) time per week. Once weekly on wednesday clotrimazole (Lotrimin) 1 % cream Apply 1 Application topically 2 times a day. diclofenac sodium (Voltaren) 1 % gel gel APPLY 4 INCHES OF MEDICATION TO EACH KNEE EVERY 4 HOURS ASNEEDED dulaglutide (Trulicity) 1.5 mg/0.5 mL pen injector injection Inject 1.5 mg under the skin 1 (one) time per week. (Patient taking differently: Inject 1.5 mg under the skin 1 (one) time per week. Patient states dr. Salcido on hold.) 2 mL 11 ergocalciferol (Vitamin D-2) 1.25 MG (11579 UT) capsule TAKE 1 CAPSULE BY MOUTH ONE TIME PER WEEK 4capsule 4 gabapentin (Neurontin) 600 mg tablet Take 1 tablet (600 mg) by mouth 3 times a day. lamoTRIgine (LaMICtal) 25 mg tablet Take 2 tablets (50 mg) by mouth once daily. lisinopril 5 mg tablet TAKE 1 TABLET BY MOUTH EVERY DAY 30 tablet 3 metoprolol tartrate (Lopressor) 25 mg tablet Take 1 tablet (25 mg) by mouth 2 times a day. 180 tablet 3 montelukast (Singulair) 10 mg tablet Take 1 tablet (10 mg) by mouth once daily at bedtime. ondansetron (Zofran) 8 mg tablet Take 1 tablet (8 mg) by mouth every 8 hours if needed for nausea. pantoprazole (ProtoNix) 40 mg EC tablet Take 1 tablet (40 mg) by mouth 2 times a day. perampaneL (Fycompa) 4 mg tablet TAKE 1 TABLET BY MOUTH EVERYDAY AT BEDTIME 30 tablet 5 topiramate (Topamax) 25 mg tablet Take 4 tablets (100 mg) by mouth once daily. umeclidinium-vilanteroL (Anoro Ellipta) 62.5-25 mcg/actuation blister with device Inhale 1 puff once daily. valACYclovir (Valtrex) 500 mg tablet Take 1 tablet (500 mg) by mouth once daily. [DISCONTINUED] aspirin 81 mg EC tablet Take 1 tablet (81 mg) by mouth once daily. [DISCONTINUED] clotrimazole-betamethasone (Lotrisone) cream [DISCONTINUED] cyclobenzaprine (Flexeril) 10 mg tablet Take 1 tablet (10 mg) by mouth 3 times a dayas needed for muscle spasms. [DISCONTINUED] fenofibrate (Tricor) 145 mg tablet Take 1 tablet (145 mg) by mouth once daily. [DISCONTINUED] insulin lispro (HumaLOG) 100 unit/mL injection Inject 1 Units under the skin 3 timesa day with meals. Sliding scale 3 mL 11 [DISCONTINUED] lamoTRIgine (LaMICtal) 100 mg tablet Take by mouth. [DISCONTINUED] lamoTRIgine (LaMICtal) 25 mg tablet Take 2 tablets (50 mg) by mouth once daily. [DISCONTINUED] spironolactone (Aldactone) 50 mg tablet TAKE 1 TABLET BY MOUTH TWICE A DAY 60 tablet3 [DISCONTINUED] spironolactone (Aldactone) 50 mg tablet Take 1 tablet (50 mg) by mouth once daily. [DISCONTINUED] topiramate (Topamax) 100 mg tablet Take 1 tablet (100 mg) by mouth once daily. [DISCONTINUED] traMADol (Ultram) 50 mg tablet Take 1 tablet (50 mg) by mouth 3 times a day. No current facility-administered medications on file prior to visit. PHYSICAL EXAM GEN: AaOx4, NAD HEENT: normocephalic atraumatic, EOMI, MMM, pupils equal and round PSYCH: appropriate mood and affect RESP: nonlabored breathing CARDIAC: Extremities WWP, RRR to peripheral palpation NEURO: CN 2-12 grossly intact SKIN: Atraumatic Physical exam of the left lower extremity reveals no obvious knee joint effusion. She has mild medial joint line pain but no lateral joint line pain. Knee is stable to varus valgus stress. She has a stable Alexa. Sensation is intact light touch in all distributions. She has palpable pulses and brisk capillary fill distally. She has full knee flexion extension with no evidence of crepitation. She does have palpable pulses although they are noticeably diminished. Imaging: XR of the bilateral knee, obtained and personally reviewed today, shows moderate tricompartmental osteoarthritis bilaterally with joint space narrowing as well as peripheral osteophyte formation. Patient ID: Hien Lam is a 48 y.o. female. L Inj/Asp: L knee on 11/25/2023 11:01 AM Indications: pain Details: 22 G needle, anterolateral approach Medications: 2 mL lidocaine 20 mg/mL (2 %); 2.5 mg triamcinolone acetonide 40 mg/mL Outcome: tolerated well, no immediate complications Procedure, treatment alternatives, risks and benefits explained, specific risks discussed. Consent was given by the patient. Immediately prior to procedure a time out was called to verify the correctpatient, procedure, equipment, sales support engineer and site/side marked as required. Patient was prepped and draped in the usual sterile fashion. Assessment: 48-year-old female with left knee osteoarthritis Plan: I discussed with the patient that she certainly does have a higher risk profile than others in regards to total knee arthroplasty. She is very young and although she does have diabetes at baseline her hemoglobin A1c has been optimized and her weight is definitely coming down. She does have multiple medical comorbidities and my largest concerning 1 would be smoking as well as her peripheral vascular disease. I told her it would be a absolute necessity for her to completely stop smoking before elective surgery would be entertained. Additionally I told her that it may be worth seeing if her vascular surgeons would entertain any sort of procedure in order to optimize her wound healing potentialin the lower extremities before proceeding to elective total knee arthroplasty. I also think it is worthwhile to try some conservative measures as she has yet to try any formal therapy or injections.For that reason we gave her a PT prescription today as well as an intra-articular knee injection. Pelon morales should give us a call once she is completely quit smoking and wants from a vascular disease standpoint she is more optimized if she wants to consider total knee arthroplasty in the future. documented in this [facility] Work Phone: 1(121) 499-122401-02-2024 History of Present illness Narrative* Jayce Duke DO - 11/09/2023 1:00 PM EST Impression: 1. Acute nonsuppurative otitis media Recommendations/Plan: I reassured the patient there is no further evidence of infection in that right ear and her ear tube is functioning normally now. She can stop her Ciprodex drops for now however she must keep all water out of her right ear. We also discussed the fact that she absolutely must quit smoking sooner than later. I will see her back in the office in 6 months and recheck her right ear tube. This electronic medical record note was created with the use of voice recognition software. Despite proofreading, typographical or grammatical errors may be present that could affect meaning of content Subjective: Hien returns to the office today as a recheck on her ears. She had been using her Ciprodex drops as directed. She no longer has had drainage from that right ear. Her hearing has improved. She has been keeping all water out of her ears. No problems in the left ear. Objective: Visit Vitals Temp 36.4 C (97.6 F) (Temporal) Current Outpatient Medications Medication Instructions albuterol (Ventolin HFA) 90 mcg/actuation inhaler 2 puffs, inhalation, Every 6 hours PRN aspirin 81 mg EC tablet 1 tablet, oral, Daily atorvastatin (LIPITOR) 40 mg, oral, Nightly blood sugar diagnostic ([employer] test strips) strip Test blood sugars 4 times a day as directed Briviact 200 mg, oral, 2 times daily buPROPion SR (Wellbutrin SR) 150 mg 12 hr tablet cholecalciferol (Vitamin D-3) 125 MCG (5000 UT) capsule 1 capsule, oral, Weekly, Once weekly on wednesday clotrimazole (Lotrimin) 1 % cream 1 Application, Topical, 2 times daily clotrimazole-betamethasone (Lotrisone) cream cyclobenzaprine (FLEXERIL) 10 mg, oral, 3 times daily PRN diclofenac sodium (Voltaren) 1 % gel gel APPLY 4 INCHES OF MEDICATION TO EACH KNEE EVERY 4 HOURS ASNEEDED ergocalciferol (VITAMIN D-2) 1,250 mcg, oral, Weekly fenofibrate (TRICOR) 145 mg, oral, Daily Fycompa 4 mg, oral, Nightly gabapentin (NEURONTIN) 1,200 mg, oral insulin lispro (HUMALOG) 1 Units, subcutaneous, 3 times daily with meals, Sliding scale lamoTRIgine (LaMICtal) 100 mg tablet oral lamoTRIgine (LAMICTAL) 50 mg, oral, Daily lisinopril 5 mg, oral, Daily montelukast (SINGULAIR) 10 mg, oral, Nightly ondansetron (ZOFRAN) 8 mg, oral, Every 8 hours PRN pantoprazole (ProtoNix) 40 mg EC tablet 1 tablet, oral, 2 times daily spironolactone (ALDACTONE) 50 mg, oral, 2 times daily spironolactone (ALDACTONE) 50 mg, oral, Daily topiramate (TOPAMAX) 100 mg, oral, Daily topiramate (TOPAMAX) 100 mg, oral, Daily traMADol (Ultram) 50 mg tablet 1 tablet, oral, 3 times daily Trulicity 1.5 mg, subcutaneous, Weekly umeclidinium-vilanteroL (Anoro Ellipta) 62.5-25 mcg/actuation blister with device 1 puff, inhalation, Daily valACYclovir (VALTREX) 500 mg, oral, Daily Allergies Allergen Reactions Duloxetine Unknown Pregabalin Unknown Shellfish Derived Unknown Physical Exam: Right ear-external canal is patent. Her PE tube is functioning normally. She no longer has pus draining through the tube and there is no further infection today. No granulation tissue. Mastoid nontender. Left ear-external canal is patent. TM intact with good mobility. No effusion. Mastoid nontender. Nose-clear no rhinorrhea Results: [] Procedure: [] Jayce Duke DO [facility] Work Phone: [phone]) 896-655212-15-2023 Evaluation note* Encounter Date Diagnosis Assessment Notes Treatment Notes Treatment Clinical Notes Oct, Asthma (ICD-10 - J45.909) [facility] Other 12-05-2023 History of Present illness Narrative* Jayce Duke DO - 10/12/2023 9:00 AM EST Impression: 1. Acute nonsuppurative otitis media ciprofloxacin-dexamethasone (CiproDEX) otic suspension 2. Otorrhea of right ear ciprofloxacin-dexamethasone (CiproDEX) otic suspension 3. Impacted cerumen of right ear RECOMMENDATIONS/PLAN : I explained to the patient that she does have a middle ear infection on that right side with significant drainage coming through her PE tube. I was able to remove a large amount of cerumen and infection from her external canal using the operative microscope and suction. We will need to start her onCiprodex drops-4 drops in that right ear twice daily for the next 10 days. She absolutely must keepall water out of her ears and she absolutely must stop smoking. I will see her back in the office over the next 4 weeks to recheck that right ear. This electronic medical record note was created with the use of voice recognition software. Despite proofreading, typographical or grammatical errors may be present that could affect meaning of content Subjective Patient ID: Hien Lam is a 48 y.o. female who presents to the office today complaining of persistent drainage and fullness with pressure in the right ear. Apparently she had a PE tube placed by a different ENT surgeon about 4 -5 years ago. Recently she has had persistent drainage and she has been on some other eardrop however the drainage continues. She has been trying to keep all water out of her right ear. No problems in the left ear. Unfortunately she is still smoking and we had a lengthy discussion regarding the fact that she absolutely must quit. ROS: A detailed 12 system review of systems is noted on the intake form has been reviewed with the patient with details noted in the HPI and scanned into the patient's medical record. Objective Past Medical History: Diagnosis Date Other disorders of lung Lung trouble Personal history of other diseases of the digestive system History of gastroesophageal reflux (GERD) Personal history of other diseases of the musculoskeletal system and connective tissue History of arthritis Personal history of other diseases of the nervous system and sense organs History of sleep apnea Personal history of other diseases of the respiratory system History of chronic obstructive lung disease Personal history of other diseases of the respiratory system History of bronchitis Personal history of other diseases of the respiratory system History of asthma Personal history of other endocrine, nutritional and metabolic disease History of diabetes mellitus Personal history of other endocrine, nutritional and metabolic disease History of thyroid disorder Personal history of other mental and behavioral disorders History of depression Personal history of other mental and behavioral disorders History of mental disorder Personal history of other specified conditions History of snoring Past Surgical History: Procedure Laterality Date BRAIN SURGERY GALLBLADDER SURGERY 10/14/2017 Gallbladder Surgery TONSILLECTOMY 10/14/2017 Tonsillectomy With Adenoidectomy Allergies Allergen Reactions Duloxetine Unknown Pregabalin Unknown Shellfish Derived Unknown Current Outpatient Medications: atorvastatin (Lipitor) 40 mg tablet, TAKE 1 TABLET BY MOUTH EVERYDAY AT BEDTIME (Patient taking differently: Take 2 tablets (80 mg) by mouth once daily at bedtime.), Disp: 90 tablet, Rfl: 3 blood sugar diagnostic (YongCheTouch Verio test strips) strip, Test blood sugars 4 times a day as directed, Disp: , Rfl: Briviact 100 mg tablet tablet, TAKE 2 TABLETS BY MOUTH TWICE A DAY, Disp: 120 tablet, Rfl: 0 cholecalciferol (Vitamin D-3) 125 MCG (5000 UT) capsule, Take 1 capsule (125 mcg) by mouth 1 (one) time per week. Once weekly on wednesday, Disp: , Rfl: clotrimazole (Lotrimin) 1 % cream, Apply 1 Application topically 2 times a day., Disp: , Rfl: diclofenac sodium (Voltaren) 1 % gel gel, APPLY 4 INCHES OF MEDICATION TO EACH KNEE EVERY 4 HOURS NEEDED, Disp: , Rfl: dulaglutide (Trulicity) 1.5 mg/0.5 mL pen injector injection, Inject 1.5 mg under the skin 1 (one) time per week. (Patient taking differently: Inject 1.5 mg under the skin 1 (one) time per week. Patient states Put on hold.), Disp: 2 mL, Rfl: 11 gabapentin (Neurontin) 600 mg tablet, Take 2 tablets (1,200 mg) by mouth., Disp: , Rfl: lisinopril 5 mg tablet, TAKE 1 TABLET BY MOUTH EVERY DAY, Disp: 30 tablet, Rfl: 3 montelukast (Singulair) 10 mg tablet, Take 1 tablet (10 mg) by mouth once daily at bedtime., Disp: , Rfl: ondansetron (Zofran) 8 mg tablet, Take 1 tablet (8 mg) by mouth every 8 hours if needed for nausea., Disp: , Rfl: pantoprazole (ProtoNix) 40 mg EC tablet, Take 1 tablet (40 mg) by mouth 2 times a day., Disp: , Rfl: perampaneL (Fycompa) 4 mg tablet, Take 1 tablet (4 mg) by mouth once daily at bedtime., Disp: , Rfl: topiramate (Topamax) 25 mg tablet, Take 4 tablets (100 mg) by mouth once daily., Disp: , Rfl: traMADol (Ultram) 50 mg tablet, Take 1 tablet (50 mg) by mouth 3 times a day., Disp: , Rfl: umeclidinium-vilanteroL (Anoro Ellipta) 62.5-25 mcg/actuation blister with device, Inhale 1 puff once daily., Disp: , Rfl: valACYclovir (Valtrex) 500 mg tablet, Take 1 tablet (500 mg) by mouth once daily., Disp: , Rfl: albuterol (Ventolin HFA) 90 mcg/actuation inhaler, Inhale 2 puffs every 6 hours if needed., Disp: ,Rfl: aspirin 81 mg EC tablet, Take 1 tablet (81 mg) by mouth once daily., Disp: , Rfl: ciprofloxacin-dexamethasone (CiproDEX) otic suspension, Administer 4 drops into the right ear 2 times a day for 10 days., Disp: 7.5 mL, Rfl: 0 cyclobenzaprine (Flexeril) 10 mg tablet, Take 1 tablet (10 mg) by mouth 3 times a day as needed formuscle spasms., Disp: , Rfl: fenofibrate (Tricor) 145 mg tablet, Take 1 tablet (145 mg) by mouth once daily., Disp: , Rfl: insulin lispro (HumaLOG) 100 unit/mL injection, Inject 1 Units under the skin 3 times a day with meals. Sliding scale (Patient not taking: Reported on 10/12/2023), Disp: 3 mL, Rfl: 11 lamoTRIgine (LaMICtal) 100 mg tablet, Take by mouth., Disp: , Rfl: lamoTRIgine (LaMICtal) 25 mg tablet, Take 2 tablets (50 mg) by mouth once daily., Disp: , Rfl: spironolactone (Aldactone) 50 mg tablet, TAKE 1 TABLET BY MOUTH TWICE A DAY (Patient not taking: Reported on 10/12/2023), Disp: 60 tablet, Rfl: 3 spironolactone (Aldactone) 50 mg tablet, Take 1 tablet (50 mg) by mouth once daily., Disp: , Rfl: Tobacco Use: High Risk (10/12/2023) Patient History Smoking Tobacco Use: Every Day Smokeless Tobacco Use: Never Passive Exposure: Not on file Alcohol Use: Not on file Social History Substance and Sexual Activity Drug Use Yes Types: Marijuana Physical Exam: Visit Vitals Temp 36.2 C (97.1 F) (Temporal) Ht 1.588 m (5' 2.5 ) Wt 91.5 kg (201 lb 12.8 oz) BMI 36.32 kg/m Smoking Status Every Day BSA 2.01 m General: Patient is alert, oriented, cooperative in no apparent distress. Head: Normocephalic, atraumatic. Eyes: PERRL, EOMI, Conjunctiva is clear. No nystagmus. Ears: Right Ear-- Pinna is normal. External auditory canal is occluded with wet cerumen. Using the operative microscope and suction I was able to remove this and she was feeling better.. Her PE tube is in place and she does have infectious drainage that is draining through it. I was able to remove this and 4 drops of Ciprodex were placed in the external canal followed by cottonball. Mastoid is nontender. Left ear-- Pinna is normal. External auditory canal is patent. Tympanic membrane is [intact, translucent and has good mobility with my pneumatic otoscope. No effusion]. Mastoid is nontender. Nose: Septum is straight. No septal perforation or lesions. No septal hematoma/ seroma. No signs ofbleeding. Inferior turbinates are mildly swollen. No evidence of intranasal polyps. No infectious drainage. Throat: Floor of mouth is clear, no masses. Tongue appears normal, no lesions or masses. Gums, gingiva, buccal mucosa appear pink and moist, no lesions. Teeth are in good repair. No obvious dental infections. Peritonsillar regions appear symmetric without swelling. Hard and soft palate appear normal, no obvious cleft. Uvula is midline. Oropharynx: No lesions. Retropharyngeal wall is flat. No active postnasal drip. Neck: Supple, no lymphadenopathy. No masses. Salivary Glands: Symmetric bilaterally. No palpable masses. No evidence of acute infection or salivary stones Neurologic: Cranial Nerves 2-12 are grossly intact without focal deficits. Cerebellar function testing is normal. Results: [] Procedure: After informed consent was obtained with the risks, benefits, complications, and alternatives explained to the patient / guardian, the patient was laid back in the ENT chair and the operative microscope was brought to the right ear. A speculum was placed and using the operative microscope and/or curette/ suction, I was able to carefully remove all of the impacted wet cerumen that was causing pain/ hearing loss. After doing so, the patient was feeling much better and had much less pain. She does have infectious drainage that iscoming through her PE tube. 4 drops of Ciprodex suspension were instilled in the external canal followed by cottonball. The patient tolerated the procedure well and there were no complications. Jayce Duke DO documented in this [facility] Work Phone: [phone] 847-212610-31-2023 History of Present illness Narrative* Oliver Auguste PA-C - 09/07/2023 10:00 AM EDT Jose Ramon Lam is a 47 y.o. female who presents for follow-up of Type 2 diabetes mellitus. The initial diagnosis of diabetes was made over 10 years ago . The patient does have a known family history of diabetes. Known complications due to diabetes included peripheral neuropathy, peripheral vascular disease, and obesity Cardiovascular risk factors include diabetes mellitus, obesity (BMI >= 30 kg/m2), sedentary lifestyle, and smoking/ tobacco exposure. The patient is on an RYLEY inhibitor or angiotensin II receptor oswald. The patient has not been previously hospitalized due to diabetic ketoacidosis. Current symptoms/problems include hyperglycemia and paresthesia of the feet. Her clinical course has been stable. Current diabetes regimen is as follows: trulicity 1.5mg, lispro sliding scale as needed The patient is currently checking the blood glucose 2+ times per day. Patient is using: glucometer Hypoglycemia frequency: n/a Hypoglycemia awareness: Yes Exercise: intermittently Meal panning: She is using avoidance of concentrated sweets. Getting set up for L knee surgery and aortic stent placement. Hopes to find a new plastic surgeon who accepts her insurance for pannus skin reduction. Review of Systems Psychiatric/Behavioral: The patient is not nervous/anxious. Mood stability improved with lamictal start All other systems reviewed and are negative. Objective There were no vitals taken for this visit. Physical Exam Constitutional: Appearance: Normal appearance. She is obese. Cardiovascular: Pulses: Normal pulses. Dorsalis pedis pulses are 2+ on the right side and 2+ on the left side. Posterior tibial pulses are 2+ on the right side and 2+ on the left side. Feet: Right foot: Protective Sensation: 10 sites tested. 1 site sensed. Skin integrity: Dry skin present. No skin breakdown. Toenail Condition: Right toenails are normal. Left foot: Protective Sensation: 10 sites tested. 1 site sensed. Skin integrity: Dry skin present. No skin breakdown. Toenail Condition: Left toenails are normal. Skin: Findings: Erythema present. Comments: Telangectasias on face Neurological: General: No focal deficit present. Mental Status: She is alert and oriented to person, place, and time. Mental status is at baseline. Psychiatric: Mood and Affect: Mood normal. Behavior: Behavior normal. Thought Content: Thought content normal. Judgment: Judgment normal. Comments: Talkative - baseline Lab Review Glucose (mg/dL) Date Value 04/27/2023 98 12/05/2021 225 (H) 11/20/2021 159 (H) Hemoglobin A1C (%) Date Value 02/09/2023 5.9 (A) 11/20/2021 8.5 (A) 04/22/2021 7.5 Bicarbonate (mmol/L) Date Value 04/27/2023 20 (L) 12/05/2021 28 11/20/2021 27 Urea Nitrogen (mg/dL) Date Value 04/27/2023 21 12/05/2021 15 11/20/2021 24 (H) Creatinine (mg/dL) Date Value 04/27/2023 0.90 12/05/2021 0.62 11/20/2021 0.95 Health Maintenance: Foot Exam: updated today Eye Exam: due for update, scheduled for tomorrow Lipid Panel: due for update, ordered today Urine Albumin: due for update, ordered today Assessment/Plan Type 2 diabetes mellitus, is at goal. A1C, lipid panel, urine albumin labs all due to for update. RX changes: none - continue Trulicity 1.5mg once weekly and lispro as per sliding scale as needed Education: interpretation of lab results and blood sugar goals Follow up: I recommend diabetes care be in 6 months. [facility] Work Phone: [phone]) 590-387410-31-2023 Instructions* Patient Instructions* Oliver Auguste PA-C - 09/07/2023 10:00 AM EDT Type 2 diabetes mellitus, is at goal. A1C, lipid panel, urine albumin labs all due to for update. RX changes: none - continue Trulicity 1.5mg once weekly and lispro as per sliding scale as needed Education: interpretation of lab results and blood sugar goals Follow up: I recommend diabetes care be in 6 months. [facility] Work Phone: [phone] 290-645610-30-2023 History of Present illness Narrative* Jordan Law MD - 09/06/2023 11:45 AM EDT Images from the original note were not included. [facility] [place] DEPARTMENT OF VASCULAR SURGERY OUTPATIENT VISIT DATE September 06, 2023 OUTPATIENT VISIT TYPE ESTABLISHED SERVICE DATE: 09/06/2023 SERVICE TIME: 7:21 AM PRIMARY CARE PHYSICIAN: Mindy Morgan MD, MD HISTORY OF PRESENT ILLNESS: Ms.Bernadette Lam is a 47 year old female who presents today for a vascular surgery follow-up visit. The patient was previously followed by Dr. Hicks. The patient was found to have diminished ABIs bilaterally on last follow-up with a right ROXY of 0.49 and left ROXY of 0.55. At that time she had no claudication of the lower extremities. The patient was being seen for preoperative work-up for bilateral knee replacements. She has still not undergone knee replacement and request clearance. She has been ambulating without symptoms of claudication or rest pain in bilateral lower extremities. She has known aortic occlusion extending into bilateral common iliac arteries with reconstitutionbilaterally at the iliac bifurcation. The patient continues to smoke cigarettes and marijuana. She does have a history of diabetes which is not insulin-dependent. Her most recent hemoglobin A1c was completed in 2019 which was 8.5. Patient remains on Aspirin and Lipitor 40 mg. She was noted to concerning from right subclavian artery stenosis secondary to unequal blood pressures on today's exam. She admits that she does have some claudication symptoms of the right upper extremity. She has no active wound of the right upper extremity. PAST MEDICAL HISTORY Diagnosis Date Abnormal loss of weight Asthma Bipolar disorder ([facility]) Harjinder's gland hyperplasia of duodenum Constipation, unspecified COPD (chronic obstructive pulmonary disease) ([facility]) [place]'s disease ([facility]) 2018 diagnosed in 2018 Depression Diabetes mellitus ([facility]) Drug abuse ([facility]) in remission Epigastric pain H/O ETOH abuse ITB syndrome Nausea and vomiting Neuropathy Polycystic disease, ovaries Rectal bleed Seizure ([facility]) last seizure in 2018 Sleep apnea does not use CPAP ,claustrophobic PAST SURGICAL HISTORY Procedure Laterality Date APPENDECTOMY CHOLECYSTECTOMY Lap COLONOSCOPY 02/12/2020 normal colonoscopy and no biopsies were taken EGD 02/12/2020 normal esophagus and stomach, duodenitis TONSILLECTOMY AND ADENOIDECTOMY HX SOCIAL HISTORY Social History Tobacco Use Smoking status: Every Day Packs/day: .5 Types: Cigars, Cigarettes Smokeless tobacco: Never Tobacco comments: 1-2 cigs day Vaping Use Vaping Use: Never used Substance Use Topics Alcohol use: No Comment: 10 years sober Drug use: Yes Types: Marijuana Comment: once a week MEDICATIONS: lamoTRIgine (LAMICTAL) 25 mg tablet TAKE 1 TAB DAILY X 2 WEEKS, THEN 2 TABS DAILY X 2 WEEKS BRIVIACT 100 mg tablet Take 200 mg by mouth twice daily. clotrimazole (LOTRIMIN, CLOTRIM) 1 % cream Clotrimazole [facility] Clotrimazole 1 % External Cream APPLY TWICE A DAY TO FUNGAL RASH IN BELLY BUTTON, UNDER BREASTS, AND I Quantity: 30 Refills: 0 Start : 20-Apr-2017 Active 04-20-2017 [facility] ([id number]) diclofenac (VOLTAREN) 1 % topical gel APPLY 4 INCHES OF MEDICATION TO EACH KNEE EVERY 4 HOURS NEEDED TRULICITY 1.5 mg/0.5 mL pen injector INJECT 1.5MG ONCE WEEKLY ON THE SAME DAY EACH WEEK umeclidinium-vilanterol (ANORO ELLIPTA) 62.5-25 mcg/actuation inhaler Inhale as instructed q 24 HR. FYCOMPA 4 mg tablet Take 4 mg by mouth daily at bedtime. ergocalciferol 50,000 unit capsule (VITAMIN D2, DRISDOL) Take 50,000 Units by mouth one time a week. ondansetron (ZOFRAN) 8 mg tablet Take by mouth. valACYclovir (VALTREX) 500 mg tablet Take by mouth. montelukast (SINGULAIR) 10 mg tablet Take 10 mg by mouth daily at bedtime. gabapentin (NEURONTIN) 800 mg tablet Take 900 mg by mouth four times daily. topiramate (TOPAMAX) 100 mg tablet Take 100 mg by mouth twice daily. traMADol (ULTRAM) 50 mg tablet Take 50 mg by mouth every 6 hours as needed. pantoprazole DR (PROTONIX) 40 mg tablet Take 40 mg by mouth twice daily. albuterol HFA (PROVENTIL HFA, VENTOLIN HFA) 90 mcg/actuation inhaler Inhale 2 Puffs as instructed. atorvastatin (LIPITOR) 20 mg tablet Take 40 mg by mouth once daily. lisinopril (ZESTRIL, PRINIVIL) 10 mg tablet Take 5 mg by mouth once daily. mifepristone (KORLYM ORAL) Take 600 mg by mouth once daily. (Patient not taking: Reported on 07/16/2022) lubiprostone (AMITIZA) 24 mcg capsule Take 24 mcg by mouth twice daily as needed. (Patient not taking: Reported on 07/16/2022) ertugliflozin (STEGLATRO) 5 mg tablet 15 mg q 24 HR. (Patient not taking: Reported on 07/16/2022) spironolactone (ALDACTONE) 25 mg tablet Take 150 mg by mouth twice daily. (Patient not taking: Reported on 09/06/2023) tiotropium (SPIRIVA RESPIMAT) 2.5 mcg/actuation inhaler Inhale 2 Puffs as instructed once daily. (Patient not taking: Reported on 07/16/2022) aspirin, enteric coated (ECOTRIN LOW STRENGTH) 81 mg EC tablet Take 1 tablet by mouth once daily. ertugliflozin 5 mg tab Take 5 mg by mouth once daily. (Patient not taking: Reported on 07/16/2022) insulin glargine (LANTUS SOLOSTAR, BASAGLAR KWIKPEN) 100 unit/mL (3 mL) Inject 80 Units subcutaneously daily at bedtime. (Patient not taking: Reported on 07/16/2022) exenatide microspheres (BYDUREON) 2 mg/0.65 mL injection Inject 2 mg subcutaneously once each week.(Patient not taking: Reported on 07/16/2022) pioglitazone (ACTOS) 15 mg tablet Take 15 mg by mouth once daily. (Patient not taking: Reported on 07/16/2022) insulin NPH-insulin regular (HumuLIN 70/30) pen Inject subcutaneously daily with breakfast. (Patient not taking: Reported on 07/16/2022) cholecalciferol, Vitamin D3, (VITAMIN D3) 50,000 unit cap capsule Take 50,000 Units by mouth twice a week. (Patient not taking: Reported on 09/06/2023) ALBUTEROL INHALATION Inhale as instructed. sucralfate (CARAFATE) 1 gram tablet Take 1 g by mouth four times daily as needed. (Patient not taking: Reported on 09/06/2023) budesonide-formoterol (SYMBICORT) 160-4.5 mcg/actuation inhaler Inhale 2 Puffs as instructed twice daily. (Patient not taking: Reported on 07/16/2022) triamcinolone acetonide (NASACORT AQ) 55 mcg nasal inhaler Use 2 Sprays in the nose once daily. (Patient not taking: Reported on 09/06/2023) fenofibrate nanocrystallized (TRICOR) 145 mg tablet Take 145 mg by mouth once daily. (Patient not taking: Reported on 07/16/2022) insulin aspart U-100 (NOVOLOG) 100 unit/mL (3 mL) Inject 30 Units subcutaneously three times daily before meals. Taking 1-3 units daily (Patient not taking: Reported on 09/06/2023) ALLERGIES: ALLERGIES Allergen Reactions Fish Derived Anaphylaxis, Rash Advair Diskus [Flut* Hives Cymbalta [Duloxetin* Swelling Dramamine Ii [Mecli* Swelling Pregabalin Unknown Insulin Aspart Rash PHYSICAL EXAM: BP 134/67 Pulse 69 General: Alert and oriented, No acute distress Integumentary: Normal color, no rash, no lesions. HEENT: No carotid bruits bilaterally Cardiovascular: Normal S1 & S2, no rubs, murmurs or gallops. No JVD., Pulse regular. Lungs: Normal breath sounds, no wheezes or crackles. Abdomen: Soft, non-tender, obese Extremities: No lower extremity wounds, no lower extremity discoloration , no lower extremity edema Neurological: Normal cognition and motor skills. Gait normal. No weakness or sensory deficit. Vascular: Carotid Pulse Right: No bruit - Left: No bruit Brachial Pulse Right: Absent - Left: palpable Radial Pulse Right: Absent - Left: palpable Posterior Tibial Right: Absent - Left: Absent Dorsalis Pedal Right: Absent - Left: Absent Diagnostic tests reviewed for today's visit: PVR/ROXY Bilateral lower extremities 07/16/2022 RIGHT SIDE Resting right ankle brachial index: 0.49 Abnormal ankle brachial index at rest diagnostic of peripheral artery disease. Right ankle: Moderate disease at rest. Aortic or bilateral iliofemoral disease. Right small vessel disease versus vasoconstriction. LEFT SIDE Resting left ankle brachial index: 0.55 Abnormal ankle brachial index at rest diagnostic of peripheral artery disease. Left ankle: Moderate disease at rest. Aortic or bilateral iliofemoral disease. Left small vessel disease versus vasoconstriction. PVR/ROXY Bilateral lower extremities 09/06/2023 Compared to prior study of 07/16/2022, right subclavian/axillary artery disease called on today's exam, otherwise no other change RIGHT SIDE Resting right ankle brachial index: 0.49 Abnormal ankle brachial index at rest diagnostic of peripheral artery disease. Right ankle: Moderate disease at rest. Right subclavian, axillary, or innominate disease. Aortic or bilateral iliofemoral disease. LEFT SIDE Resting left ankle brachial index: 0.50 Abnormal ankle brachial index at rest diagnostic of peripheral artery disease. Left ankle: Moderate disease at rest. Aortic or bilateral iliofemoral disease. IMPRESSION: Ms. Hien Lam is a 47 year old female with diminished ABIs bilaterally with known aortoiliac occlusive disease who presents for routine follow-up. PLAN and RECOMMENDATIONS: -PVR and ROXY stable from prior exam one year ago. No lower extremity wounds or rest pain. She can proceed with knee replacement from vascular surgery standpoint. - Patient noted to have unequal blood pressures in upper extremities concerning from right subclavian artery disease. Continue medical management. Plan for CTA of chest on return visit with carotid duplex. -Continue 81 mg Aspirin recommend to increase Lipitor 80 mg -Discussed smoking cessation patient continues to smoke daily -Diabetes with most recent hemoglobin A1c 4.9 02/09/2023 follows with endocrinology - Cardiology following the patient with plans for loop recorder -Plan to see patient back 4 months for routine follow-up with ROXY and PVR as well as CTA of chest, abdomen, and pelvis when post op from knee replacement surgery. Counseled patient should she developrest pain or active wounds to call for sooner appointment. - All questions answered. Patient is in agreement with the above plan. SIGNATURE: Jordan Law MD PATIENT NAME: Hien Lam DATE: September 06, 2023 TIME: 7:21 AM [facility]* Encounter Date Diagnosis Assessment Notes Treatment Notes Treatment Clinical Notes Aug, Asthma with COPD (ICD-10 - J44.9) Patient is doing well from the respiratory standpoint, with abstinence from smoking she is low risk for any perioperative complications in regard to her knee surgery and is cleared to undergo surgery as planned Aug, Cigarette nicotine dependence (ICD-10 - F17.210) Aug, Obstructive sleep apnea (ICD-10 - G47.33) [employer] Other 09-26-2023 Hospital Discharge instructions Patient Education 08/02/2023 23:20:44 Acute Knee Pain, Adult, Vzik-nk-Wdkz Acute Knee Pain, Adult Many things can cause knee pain. Sometimes, knee pain is sudden (acute) and may be caused by damage, swelling, or irritation of the muscles and tissues that support your knee. The pain often goes away on its own with time and rest. If the pain does not go away, tests may be done to find out what is causing the pain. Follow these instructions at home: If you have a knee sleeve or brace: Wear the knee sleeve or brace as told by your doctor. Take it off only as told by your doctor. Loosen it if your toes: ?Tingle. ?Become numb. ?Turn cold and blue. Keep it clean. If the knee sleeve or brace is not waterproof: ?Do not let it get wet. ?Cover it with a watertight covering when you take a bath or shower. Activity Rest your knee. Do not do things that cause pain or make pain worse. Avoid activities where both feet leave the ground at the same time (high-impact activities). Examples are running, jumping rope, and doing jumping jacks. Work with a physical therapist to make a safe exercise program, as told by your doctor. Managing pain, stiffness, and swelling If told, put ice on the knee. To do this: ?If you have a removable knee sleeve or brace, take it off as told by your doctor. ?Put ice in a plastic bag. ?Place a towel between your skin and the bag. ?Leave the ice on for 20 minutes, 2 3 times a day. ?Take off the ice if your skin turns bright red. This is very important. If you cannot feel pain, heat, or cold, you have a greater risk of damage to the area. If told, use an elastic bandage to put pressure (compression) on your injured knee. Raise your knee above the level of your heart while you are sitting or lying down. Sleep with a pillow under your knee. General instructions Take uadr-gqj-wicakiz and prescription medicines only as told by your doctor. Do not smoke or use any products that contain nicotine or tobacco. If you need help quitting, ask your doctor. If you are overweight, work with your doctor and a food expert (dietitian) to set goals to lose weight. Being overweight can make your knee hurt more. Watch for any changes in your symptoms. Keep all follow-up visits. Contact a doctor if: The knee pain does not stop. The knee pain changes or gets worse. You have a fever along with knee pain. Your knee is red or feels warm when you touch it. Your knee gives out or locks up. Get help right away if: Your knee swells, and the swelling gets worse. You cannot move your knee. You have very bad knee pain that does not get better with pain medicine. Summary Many things can cause knee pain. The pain often goes away on its own with time and rest. Your doctor may do tests to find out the cause of the pain. Watch for any changes in your symptoms. Relieve your pain with rest, medicines, light activity, anduse of ice. Get help right away if you cannot move your knee or your knee pain is very bad. This information is not intended to replace advice given to you by your health care provider. Make sure you discuss any questions you have with your health care provider. Document Revised: 04/09/2021 Document Reviewed: 04/09/2021 [employer] Patient Education 2022 [employer]. Follow Up Care 08/02/2023 21:51:22 With:Charissa Seth Address: [address] [place] [address] Business (1) When:08/05/2023 With:Mindy Morgan Address: [address] [place] [address] [place] [address] Business (1) When:08/05/2023 Comments:You can use the pain medication as prescribed as needed for pain. Please follow-up with your primary care doctor in addition to orthopedics for further evaluation management. Please return to the ED for any new or worsening symptoms. [facility]09-18-2023 Evaluation note* Encounter Date Diagnosis Assessment Notes Treatment Notes Treatment Clinical Notes Jul, Asthma (ICD-10 - J45.909) [facility] Other 08-24-2023 Hospital Discharge instructions Patient Education 07/01/2023 12:24:23 Wound Infection Wound Infection A wound infection happens when tiny organisms (microorganisms) start to grow in a wound. A wound infection is most often caused by bacteria. Infection can cause the wound to break open or worsen. Wound infection needs treatment. If a wound infection is left untreated, complications can occur. Untreated wound infections may lead to an infection in the bloodstream (septicemia) or a bone infection (o steomyelitis). What are the causes? This condition is most often caused by bacteria growing in a wound. Other microorganisms, like yeast and fungi, can also cause wound infections. What increases the risk? The following factors may make you more likely to develop this condition: Having a weak body defense system (immune system). Having diabetes. Taking steroid medicines for a long time (chronic use). Smoking. Being an older person. Being overweight. Taking chemotherapy medicines. What are the signs or symptoms? Symptoms of this condition include: Having more redness, swelling, or pain at the wound site. Having more blood or fluid at the wound site. A bad smell coming from a wound or bandage (dressing). Having a fever. Feeling tired or fatigued. Having warmth at or around the wound. Having pus at the wound site. How is this diagnosed? This condition is diagnosed with a medical history and physical exam. You may also have a wound culture or blood tests or both. How is this treated? This condition is usually treated with an antibiotic medicine. The infection should improve 24 48 hours after you start antibiotics. After 24 48 hours, redness around the wound should stop spreading, and the wound should be less painful. Follow these instructions at home: Medicines Take or apply akep-zkh-oafeupf and prescription medicines only as told by your health care provider. If you were prescribed an antibiotic medicine, take or apply it as told by your health care provider. Do not stop using the antibiotic even if you start to feel better. Wound care Clean the wound each day, or as told by your health care provider. ?Wash the wound with mild soap and water. ?Rinse the wound with water to remove all soap. ?Pat the wound dry with a clean towel. Do not rub it. Follow instructions from your health care provider about how to take care of your wound. Make sure you: ?Wash your hands with soap and water before and after you change your dressing. If soap and water are not available, use hand acid tank liner. ?Change your dressing as told by your health care provider. ?Leave stitches (sutures), skin glue, or adhesive strips in place if your wound has been closed. These skin closures may need to stay in place for 2 weeks or longer. If adhesive strip edges start to loosen and curl up, you may trim the loose edges. Do not remove adhesive strips completely unless your health care provider tells you to do that. Some wounds are left open to heal on their own. Check your wound every day for signs of infection. Watch for: ?More redness, swelling, or pain. ?More fluid or blood. ?Warmth. ?Pus or a bad smell. General instructions Keep the dressing dry until your health care provider says it can be removed. Do not take baths, swim, or use a hot tub until your health care provider approves. Ask your healthcare provider if you may take showers. You may only be allowed to take sponge baths. Raise (elevate) the injured area above the level of your heart while you are sitting or lying down. Do not scratch or pick at the wound. Keep all follow-up visits as told by your health care provider. This is important. Contact a health care provider if: Your pain is not controlled with medicine. You have more redness, swelling, or pain around your wound. You have more fluid or blood coming from your wound. Your wound feels warm to the touch. You have pus coming from your wound. You continue to notice a bad smell coming from your wound or your dressing. Your wound that was closed breaks open. Get help right away if: You have a red streak going away from your wound. You have a fever. Summary A wound infection happens when tiny organisms (microorganisms) start to grow in a wound. This condition is usually treated with an antibiotic medicine. Follow instructions from your health care provider about how to take care of your wound. Contact a health care provider if your wound infection does not begin to improve in 24 48 hours, oryour symptoms worsen. Keep all follow-up visits as told by your health care provider. This is important. This information is not intended to replace advice given to you by your health care provider. Make sure you discuss any questions you have with your health care provider. Document Revised: 08/20/2022 Document Reviewed: 08/20/2022 [employer] Patient Education 2022 [employer]. Follow Up Care 07/01/2023 11:34:08 With:Mindy Morgan Address: [address] [place] [address]. [address] [place] [phone]- Business (1) When:07/04/2023 12:07:16 Comments:Return to the emergency room if the redness around the wounds gets worse, drainage from the wound, fever, red streaks or any new symptoms. [facility]08-24-2023 Evaluation + Plan noteExtracted from: Title:ED Note Author:Dana Engel M.D. te:07/01/23 1. Wound infection (T14.8XXA : Other injury of unspecified body region, initial encounter) Local infection of the skin and subcutaneous tissue, unspecified (L08.9: Local infection of the skin and subcutaneous tissue, unspecified) Orders: doxycycline, 100 mg = 1 cap(s), Oral, BID, X 10 day(s), # 20 cap(s), Refills(s) 0, Pharmacy: [id number], 167, cm, 07/01/23 11:45:00 EDT, Height/Length Dosing, 88, kg, 07/01/23 11:45:00 EDT, Weight Dosing mupirocin topical, 1 tramaine, Topical, TID, 22 gram, Refill(s) 0, [id number], 167, cm, 07/01/23 11:45:00 EDT, Height/Length Dosing, 88, kg, 07/01/23 11:45:00 EDT, Weight Dosing [facility]04-04-2023 Chief complaint Narrative - Reported* An interactive audio and video telecommunication system which permits real time communications between the patient (at the originating site) and provider (at the distant site) was utilized to providethis telehealth service. * Verbal consent was requested and obtained from HIEN LAM on this date, 02/09/2023 01:30 PM , for a telehealth visit. * f/u DM2 * f/u DM2 [id number]-Tqjubvlj [id number] Work Phone: [phone]) 392-213403-07-2023 Evaluation note* Encounter Date Diagnosis Assessment Notes Treatment Notes Treatment Clinical Notes Jan, Asthma with COPD (ICD-10 - J44.9) Jan, Asthma (ICD-10 - J45.909) [employer] Other 01-23-2023 History of Present illness Narrative* HIEN LAM is being seen for routine follow-up for, type 2 diabetes. Date of last HbA1c: 11/30/22 and results: 6.0%. * Current DM Regimen:. diet controlled. injectables. insulin. CGM. compliant with current DM regimen. * Home Glucose Monitoring: * Source: reported by patient. * Frequency of Testing: * Compliant with home glucose monitoring. * Glucose Ranges: 80-175. * No recent hypoglycemic episodes. * Diet Plan: * Type of Diet: Low carb * Patient is non-compliant with diet plan. * Cardiovascular: peripheral arterial disease. * Renal: no nephropathy. * Neurologic: peripheral neuropathy. * Pt is feeling much better since her chiari malformation was surgically corrected. she is more comfortable walking more and has stopped her GLP1 and spironolactone tx's. * Pt has lost 30lb in the last year and is looking forward to excess skin removal surgery and L knee replacement surgery. she is down 65lb from her highest weight on [facility] record, and down nearly 200lb from highest weight to pt's memory * we discussed importance of smoking cessation to promote adequate healing for possible skin resection and knee replacement * agrees to updated labs to evaluate thyroid, metabolic panel, and A1C HO-Bpsjmdrjvs-Mjrhmsfm 23[address] Work Phone: 1(662) 726-746511-17-2022 Hospital Discharge instructions Patient Education 09/24/2022 18:59:32 Otitis Externa Otitis Externa Otitis externa is an infection of the outer ear canal. The outer ear canal is the area between the outside of the ear and the eardrum. Otitis externa is sometimes called swimmer's ear. What are the causes? Common causes of this condition include: Swimming in dirty water. Moisture in the ear. An injury to the inside of the ear. An object stuck in the ear. A cut or scrape on the outside of the ear. What increases the risk? You are more likely to develop this condition if you go swimming often. What are the signs or symptoms? The first symptom of this condition is often itching in the ear. Later symptoms of the condition include: Swelling of the ear. Redness in the ear. Ear pain. The pain may get worse when you pull on your ear. Pus coming from the ear. How is this diagnosed? This condition may be diagnosed by examining the ear and testing fluid from the ear for bacteria and funguses. How is this treated? This condition may be treated with: Antibiotic ear drops. These are often given for 10 14 days. Medicines to reduce itching and swelling. Follow these instructions at home: If you were prescribed antibiotic ear drops, use them as told by your health care provider. Do not stop using the antibiotic even if your condition improves. Take vwvm-ymt-qqimnou and prescription medicines only as told by your health care provider. Avoid getting water in your ears as told by your health care provider. This may include avoiding swimming or water sports for a few days. Keep all follow-up visits as told by your health care provider. This is important. How is this prevented? Keep your ears dry. Use the corner of a towel to dry your ears after you swim or bathe. Avoid scratching or putting things in your ear. Doing these things can damage the ear canal or remove the protective wax that lines it, which makes it easier for bacteria and funguses to grow. Avoid swimming in lakes, polluted water, or pools that may not have enough chlorine. Contact a health care provider if: You have a fever. Your ear is still red, swollen, painful, or draining pus after 3 days. Your redness, swelling, or pain gets worse. You have a severe headache. You have redness, swelling, pain, or tenderness in the area behind your ear. Summary Otitis externa is an infection of the outer ear canal. Common causes include swimming in dirty water, moisture in the ear, or a cut or scrape in the ear. Symptoms include pain, redness, and swelling of the ear. If you were prescribed antibiotic ear drops, use them as told by your health care provider. Do not stop using the antibiotic even if your condition improves. This information is not intended to replace advice given to you by your health care provider. Make sure you discuss any questions you have with your health care provider. Document Released: 10/25/2006 Document Revised: 03/31/2019 Document Reviewed: 03/31/2019 [employer] Patient Education 2020 [employer]. 09/24/2022 18:59:32 Ear Drops, Adult Ear Drops, Adult You have been diagnosed with a condition that requires you to put drops of medicine into your ears.Ear drops are a medicine that is placed in the ear. This sheet gives you information about how to use ear drops. Your health care provider may also give you more specific instructions. Supplies needed: Cotton ball. Medicine. How to put ear drops into your ear 1.Wash your hands thoroughly with soap and water. 2.Make sure your ears are clean and dry. If there is any ear wax or drainage at the outermost portion of the ear canal, wipe it out gently with a cotton-tipped applicator. 3.Warm up the medicine by holding it in the palm of your hand for a few minutes. 4.Shake the medicine if it is a suspension. 5.Use the dropper to draw up the medicine. 6.Hold the dropper above your ear canal and put the drops in the affected ear as instructed. Do notput the dropper into your ear at any time. It may help to pull the outer flap of the ear up and back while you put the drops in. Doing this will straighten out the ear canal so the medicine can get into the canal easier. 7.To make sure your ear soaks up the medicine, do either of these things: Lie down with the affected ear facing up for 10 minutes. This will cause the drops to stay in the ear canal and run down and fill the canal. Gently put a cotton ball in your ear canal. Leave enough of the cotton ball out so it can be easilyremoved. Do not push the cotton ball down into your ear with a cotton-tipped swab or other instrument. You can remove the cotton ball once the medicine has been absorbed. 8.If both ears need the drops, repeat the procedure for the other ear. Your health care provider will let you know if you need to put drops in both ears. Follow these instructions at home: Use the ear drops for as long as directed by your health care provider, even if you begin to feel better. Always wash your hands before and after handling the ear drops. Keep the ear drops at room temperature. Keep all follow-up visits as told by your health care provider. This is important. Contact a health care provider if: Your condition gets worse. Your pain gets worse. You notice any unusual drainage from your ear, especially if the drainage has a bad smell. You have trouble hearing. You have used the ear drops for the amount of time recommended by your health care provider, but your symptoms have not improved. Get help right away if: You experience a form of dizziness in which you feel as if the room is spinning and you feel nauseated (vertigo). The outside of your ear becomes red or swollen. You develop a severe headache with or without neck stiffness. Summary Ear drops are a medicine that is placed in the ear. Put drops in the affected ear as instructed. Use the ear drops for as long as directed by your health care provider, even if your symptoms beginto get better. Keep all follow-up visits as told by your health care provider. This is important. This information is not intended to replace advice given to you by your health care provider. Make sure you discuss any questions you have with your health care provider. Document Released: 10/19/2002 Document Revised: 10/07/2018 Document Reviewed: 10/28/2017 [employer] Patient Education 2020 [employer]. Follow Up Care 09/24/2022 16:55:48 With:Melony Martines Address: [address] [place] [address] 3, [address] [place] [phone] Business (1) When:09/27/2022 18:49:27 [facility]11-15-2022 Chief complaint Narrative - Reported* An interactive audio and video telecommunication system which permits real time communications between the patient (at the originating site) and provider (at the distant site) was utilized to providethis telehealth service. * Verbal consent was requested and obtained from HIEN LAM on this date, 09/22/2022 11:45 AM , for a telehealth visit. * f/u DM2 [id number]-EWT [address] Work Phone: [phone] 133-483411-10-2022 Evaluation note* Encounter Date Diagnosis Assessment Notes Treatment Notes Treatment Clinical Notes Sep, Asthma with COPD (ICD-10 - J44.9) Sep, Obstructive sleep apnea (ICD-10 - G47.33) Sep, Arnold-Chiari syndrome (ICD-10 - Q07.00) Sep, Bradycardia (ICD-10 - R00.1) [employer] Other 11-07-2022 Evaluation note* Encounter Date Diagnosis Assessment Notes Treatment Notes Treatment Clinical Notes Sep, Asthma (ICD-10 - J45.909) [facility] [employer] Other 10-28-2022 Hospital Discharge instructions Follow Up Care 09/04/2022 14:40:04 With:Elsa SHANKS, David Mishra. Address: [address] [place] [address]- When:6 weeks [facility]10-03-2022 History of Present illness Narrative* Santi Garcia MD - 08/10/2022 7:22 PM EDT Images from the original note were not included. EMERGENCY TRIAGE, TREAT AND TRANSPORT (ET3) DOCUMENTATION OF TELEHEALTH VISIT Date / Time: 07/11/2022944 Name: Hien Lam : 1975 SSN: [id number] EMS Agency: [facility] [x] Verbal consent obtained [] Implied consent - patient with potential emergency medical condition requiring assessment of capacity to refuse treatment and/or transport VITAL SIGNS: see flowsheet documentation Reason for Telehealth Visit: Chief Complaint Patient presents with Chest symptoms/complaints History of Present Ilness: Pleasant 46-year-old female complaining of chest pain for the last few hours. Pain is midsternal radiating to the left arm and left jaw. Patient has a history of heart disease. She is followed at [facility]. She states he has mild shortness of breath. There is no fever, nausea, vomiting. Additional pertinent PMHx, SocHx, FamHx: Social history: Lives with Review of Systems: Denies the following: : headache, neck pain, cough, wheezing, abdominal pain, leg pain or swelling Exam: General: Awake, no distress ENT: normocephalic, atraumatic Pulmonary: No respiratory distress Cardiovascular: Well perfused Neurologic: Oriented to person, place, time and events. Moving all extremities equally. Psychiatric: Appropriate. Good insight and judgement. Medical Decision Makin year-old female with history of heart disease as well as chest pain with radiation today. Patient initially refused transport, stage I to go to hospital father weight. Explain note the patient that regardless of which hospital she went to if the symptoms represented a myocardial infarction she would need to be transported to the [facility] from either hospital. [facility] No further questions from the patient or the EMS crew. Disposition Supported by Telehealth Assessment: ET3 transport decisions: Transport to hospital EMS Disposition Reported: Same ET3 Encounter Completed by: Santi Garcia MD documented in this [id number] History of Present illness Narrative* Vickey Hicks MD - 07/16/2022 1:07 PM EDT Images from the original note were not included. [facility] [place] DEPARTMENT OF VASCULAR SURGERY OUTPATIENT VISIT DATE July 16, 2022 OUTPATIENT VISIT TYPE ESTABLISHED SERVICE DATE: 07/16/2022 SERVICE TIME: 1:07 PM PRIMARY CARE PHYSICIAN: Mindy Morgan MD HISTORY OF PRESENT ILLNESS: Ms. Lam is a 46 year old female who presents today for a vascular surgery follow-up visit for AIOD. Since her last visit she has begun work up for b/l knee replacements, as her DJD limites her mobility more than claudication symptoms. Otherwise, she is doing well and intentionally losing weight, still smoking. Her PVRs today are unchanged from 1 year prior. Her CTA is also largely unchanged. PAST MEDICAL HISTORY Diagnosis Date Abnormal loss of weight Asthma Bipolar disorder (HCC) Harjinder's gland hyperplasia of duodenum Constipation, unspecified COPD (chronic obstructive pulmonary disease) (HCC) [place]'s disease (HCC) 2018 diagnosed in 2018 Depression Diabetes mellitus (HCC) Drug abuse (HCC) in remission Epigastric pain H/O ETOH abuse ITB syndrome Nausea and vomiting Neuropathy Polycystic disease, ovaries Rectal bleed Seizure (HCC) last seizure in 2018 Sleep apnea does not use CPAP ,claustrophobic PAST SURGICAL HISTORY Procedure Laterality Date APPENDECTOMY CHOLECYSTECTOMY Lap COLONOSCOPY 02/12/2020 normal colonoscopy and no biopsies were taken EGD 02/12/2020 normal esophagus and stomach, duodenitis TONSILLECTOMY AND ADENOIDECTOMY HX SOCIAL HISTORY Social History Tobacco Use Smoking status: Every Day Packs/day: 0.50 Types: Cigars, Cigarettes Smokeless tobacco: Never Tobacco comments: 1-2 cigs day Vaping Use Vaping Use: Never used Substance Use Topics Alcohol use: No 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 clotrimazole (LOTRIMIN, CLOTRIM) 1 % cream Clotrimazole [facility] Clotrimazole 1 % External Cream APPLY TWICE A DAY TO FUNGAL RASH IN [place], UNDER BREASTS, AND I Quantity: 30 Refills: 0 Start : 20-Apr-2017 Active 04-20-2017 [facility] ([id number]) diclofenac (VOLTAREN) 1 % topical gel APPLY 4 INCHES OF MEDICATION TO EACH KNEE EVERY 4 HOURS NEEDED TRULICITY 1.5 mg/0.5 mL pen injector INJECT 1.5MG ONCE WEEKLY ON THE SAME DAY EACH WEEK umeclidinium-vilanterol (ANORO ELLIPTA) 62.5-25 mcg/actuation inhaler Inhale as instructed q 24 HR. FYCOMPA 4 mg tablet Take 4 mg by mouth daily at bedtime. ergocalciferol 50,000 unit capsule (VITAMIN D2, DRISDOL) Take 50,000 Units by mouth one time a week. ondansetron (ZOFRAN) 8 mg tablet Take by mouth. valACYclovir (VALTREX) 500 mg tablet Take by mouth. montelukast (SINGULAIR) 10 mg tablet Take 10 mg by mouth daily at bedtime. spironolactone (ALDACTONE) 25 mg tablet Take 150 mg by mouth twice daily. aspirin, enteric coated (ECOTRIN LOW STRENGTH) 81 mg EC tablet Take 1 tablet by mouth once daily. gabapentin (NEURONTIN) 800 mg tablet Take 900 mg by mouth four times daily. topiramate (TOPAMAX) 100 mg tablet Take 100 mg by mouth twice daily. traMADol (ULTRAM) 50 mg tablet Take 50 mg by mouth every 6 hours as needed. ALBUTEROL INHALATION Inhale as instructed. pantoprazole DR (PROTONIX) 40 mg tablet Take 40 mg by mouth twice daily. sucralfate (CARAFATE) 1 gram tablet Take 1 g by mouth four times daily as needed. triamcinolone acetonide (NASACORT AQ) 55 mcg nasal inhaler Use 2 Sprays in the nose once daily. albuterol HFA (PROVENTIL HFA, VENTOLIN HFA) 90 mcg/actuation inhaler Inhale 2 Puffs as instructed. atorvastatin (LIPITOR) 20 mg tablet Take 40 mg by mouth once daily. lisinopril (ZESTRIL, PRINIVIL) 10 mg tablet Take 5 mg by mouth once daily. insulin aspart U-100 (NOVOLOG) 100 unit/mL (3 mL) Inject 30 Units subcutaneously three times daily before meals. Taking 1-3 units daily mifepristone (KORLYM ORAL) Take 600 mg by mouth once daily. (Patient not taking: Reported on 07/16/2022) lubiprostone (AMITIZA) 24 mcg capsule Take 24 mcg by mouth twice daily as needed. (Patient not taking: Reported on 07/16/2022) ertugliflozin (STEGLATRO) 5 mg tablet 15 mg q 24 HR. (Patient not taking: Reported on 07/16/2022) tiotropium (SPIRIVA RESPIMAT) 2.5 mcg/actuation inhaler Inhale 2 Puffs as instructed once daily. (Patient not taking: Reported on 07/16/2022) ertugliflozin 5 mg tab Take 5 mg by mouth once daily. (Patient not taking: Reported on 07/16/2022) insulin glargine (LANTUS SOLOSTAR, BASAGLAR KWIKPEN) 100 unit/mL (3 mL) Inject 80 Units subcutaneously daily at bedtime. (Patient not taking: Reported on 07/16/2022) exenatide microspheres (BYDUREON) 2 mg/0.65 mL injection Inject 2 mg subcutaneously once each week.(Patient not taking: Reported on 07/16/2022) pioglitazone (ACTOS) 15 mg tablet Take 15 mg by mouth once daily. (Patient not taking: Reported on 07/16/2022) insulin NPH-insulin regular (HumuLIN 70/30) pen Inject subcutaneously daily with breakfast. (Patient not taking: Reported on 07/16/2022) cholecalciferol, Vitamin D3, (VITAMIN D3) 50,000 unit cap capsule Take 50,000 Units by mouth twice a week. (Patient not taking: Reported on 07/16/2022) budesonide-formoterol (SYMBICORT) 160-4.5 mcg/actuation inhaler Inhale 2 Puffs as instructed twice daily. (Patient not taking: Reported on 07/16/2022) fenofibrate nanocrystallized (TRICOR) 145 mg tablet Take 145 mg by mouth once daily. (Patient not taking: Reported on 07/16/2022) ALLERGIES: ALLERGIES Allergen Reactions Fish Derived Anaphylaxis, Rash Advair Diskus [Flut* Hives Cymbalta [Duloxetin* Swelling Dramamine Ii [Mecli* Swelling Pregabalin Unknown Insulin Aspart Rash PHYSICAL EXAM: BP 136/85 Pulse 75 General: Alert and oriented Integumentary: Normal color, no rash, no lesions. HEENT: EOM, pupils equal, round and reactive. Cardiovascular: No JVD., Pulse regular. Lungs: Normal breath sounds, no wheezes or crackles. Abdomen: Soft, non-tender, no rigidity. Extremities: No deformity, no edema or tenderness, no joint swelling or clubbing. Neurological: Normal cognition and motor skills. Vascular: Posterior Tibial Right: Weak - Left: Weak Dorsalis Pedal Right: Weak - Left: Weak Diagnostic tests reviewed for today's visit: Most recent imaging PVR LEG B/L Compared to prior study of 12/02/2020, Essentially, no change. RIGHT SIDE Resting right ankle brachial index: 0.49 Abnormal ankle brachial index at rest diagnostic of peripheral artery disease. Right ankle: Moderate disease at rest. Aortic or bilateral iliofemoral disease. Right small vessel disease versus vasoconstriction. LEFT SIDE Resting left ankle brachial index: 0.55 Abnormal ankle brachial index at rest diagnostic of peripheral artery disease. Left ankle: Moderate disease at rest. Aortic or bilateral iliofemoral disease. Left small vessel disease versus vasoconstriction. IMPRESSION: Ms. Lam is a 46 year old female with AIOD with stable PVRs and CTA today. Denies claudication symptoms as her DJD limits her mobility, for which she is undergoing knee replacement evaluation. PLAN and RECOMMENDATIONS: - Cleared from a vascular surgery prospective to undergo knee replacement. PVRs within a marginal but acceptable range to heal - RTC in 1 year for repeat PVRs Namrata Rai MD [facility] STAFF PHYSICIAN NOTE OF PERSONAL INVOLVEMENT IN CARE IMPRESSION: 46 year old female with aortoiliac occlusive disease with stable ROXY R 0.49 L 0.55 withsevere arthritis of both knees, which is her primary limitation. No claudication symptoms. PLAN: Encourage smoking cessation, continue CV risk factor modification. Follow- up in 1 year with ROXY. No contra-indication to knee replacement if needed. I have reviewed the documentation obtained and documented by the Resident. I have personally performed a face to face assessment of the patient and have personally participated on the grey components of the history, exam and medical decision making. I have discussed the case and management of the patient's care with patient. SIGNATURE: Vickey Hicks MD PATIENT NAME: Hien Lam DATE: July 16, 2022 TIME: 1:07 PM documented in this encounterOhio[facility]09-[facility]22 History of Present illness Narrative* Kiet Mack RN - 07/16/2022 10:45 AM EDT Radiology Service Progress Note DATE OF SERVICE: July 16, 2022 TIME: 10:29 AM PATIENT WEIGHT: 226 LBS PATIENT IDENTITY VERIFICATION COMPLETED USING TWO (2) STANDARD IDENTIFIERS: Name and Date of confirmed by patient verbally. FALL SCREENING: Has the patient had 2 falls in the last year or 1 fall with injury or currently using an Ambulatory Assistive Device (Walker, Cane, Wheelchair, Crutches, etc.)? No PATIENT GENDER DATA: Female. status: : No status: NO. ALLERGIES: Reviewed and unchanged CONTRAST ALLERGY: No EXAM: CT -CONTRAST INDUCED NEPHROPATHY RISK FACTORS: Diabetic: Yes. Current medication(s): N/A. Patient currently has insulin pump?: No. CREATININE: Creatinine Date Value Ref Range Status 02/09/2020 0.65 0.58 - 0.96 mg/dL Final 11/17/2018 0.58 0.58 - 0.96 mg/dL Final Creatinine (POCT) Date Value Ref Range Status 12/02/2020 0.80 0.7 - 1.4 mg/dL Final eGFR (POCT) Date Value Ref Range Status 12/02/2020 >60 mL/min/1.73 m2 Final eGFR- (POCT) Date Value Ref Range Status 12/02/2020 >60 mL/min/1.73 m2 Final P.O.C.T. RESULTS: POC done: Yes, See Lab Tab July 16, 2022 TREATMENT: N/A and No Hydration needed. IV SITE: Ambulatory: A peripheral IV was started in the Left antecubital site with a Angio cath: 20gauge. and A Saline lock was inserted per protocol IV SITE APPEARANCE: Clean,Dry and Intact SIGNATURE: Kiet Mack RN PATIENT NAME: Hien Lam DATE: July 16, 2022 TIME: 10:29 AM * RT Ozzy(R) - 07/16/2022 10:45 AM EDT Radiology Service Progress Note PATIENT NAME: Hien Lam DATE OF SERVICE: July 16, 2022 TIME: 11:06 AM PATIENT IDENTITY VERIFICATION COMPLETED USING TWO (2) IDENTIFIERS: Name and Date of confirmedby patient verbally and Name and Date of confirmed by identification band. FALL SCREENING: Has the patient had 2 falls in the last year or 1 fall with injury or currently using an Ambulatory Assistive Device (Walker, Cane, Wheelchair, Crutches, etc.)? No PATIENT GENDER DATA: Female. status: : No status: NO. PATIENT RELEVANT IMPLANT DATA REVIEWED: Yes RADIOLOGY DEPARTMENT: CT; Exam(s) Completed: CTA Aorta/leg runoff PERIPHERAL IV DATA: Site assessment: Clean,Dry and Intact, Site disposition Discontinued SIGNED BY: RT Ozzy(R) July 16, 2022 11:06 AM documented in this encounterOhio[facility]08-11-2022 Miscellaneous Notes* Telephone Encounter - Yola Fairbanks - 06/18/2022 3:22 PM EDT Patient called in to reschedule t her appointment due upcoming surgery with another provider. Thanks .hiral PSS documented in this encounterOhiohealth [facility]07-11-2022 Evaluation note* Encounter Date Diagnosis Assessment Notes Treatment Notes Treatment Clinical Notes May, Asthma (ICD-10 - J45.909) [facility] Other 07-01-2022 Miscellaneous Notes* Telephone Encounter - Maricel Pérez - 05/08/2022 1:02 PM EDT Patient called stating that she has to have knee surgery. She has some artery issues and the surgeon wants her get her artery issues cleared before he does the surgery. I explained that Dr Stout was out for awhile and was it ok for her see another Dr and she is ok with that. Please call patient and advise her on what she is to do next. Thanks Maricel Pérez Cash Teller documented in this encounterOhiohealth [facility]06-24-2022 History of Present illness Narrative* HIEN LAM is being seen for routine follow-up for, type 2 diabetes. Date of last HbA1c: 05/01/22 and results: 6.8%. * Current DM Regimen:. diet controlled. injectables. insulin. CGM. compliant with current DM regimen. * Home Glucose Monitoring: * Source: reported by patient. * Frequency of Testing: * Compliant with home glucose monitoring. * Glucose Ranges: 80-175. * No recent hypoglycemic episodes. * Diet Plan: * Type of Diet: Low carb * Patient is non-compliant with diet plan. * Cardiovascular: peripheral arterial disease. * Renal: no nephropathy. * Neurologic: peripheral neuropathy. * weight 228lb up from 210lb last week, she sees swelling in feet and ankles, labs show lower potassium of 3.0 * - we discussed plan to restart spironolactone 50mg twice a day for 2 weeks, then recheck labs to see if potassium comes back up * diarrhea for several weeks since eating mostly liquid to avoid upset stomach * she has been very stressed with her family and is looking for a new place to stay other than her parents' house. she had a big argument with her mom and step dad * she is looking to have knee surgery to improve her ability to work - she has to f/u on her vascularphysician in order to be cleared for knee surgery * she wishes to come off of her SSRIs [facility] [place] [address] Work Phone: 1(374) 692-752006-24-2022 History of Present illness Narrative* HIEN LAM is being seen for routine follow-up for, type 2 diabetes. Date of last HbA1c: 05/01/22 and results: 6.8%. * Current DM Regimen:. diet controlled. injectables. insulin. CGM. compliant with current DM regimen. * Home Glucose Monitoring: * Source: reported by patient. * Frequency of Testing: * Compliant with home glucose monitoring. * Glucose Ranges: 80-175. * No recent hypoglycemic episodes. * Diet Plan: * Type of Diet: Low carb * Patient is non-compliant with diet plan. * Cardiovascular: peripheral arterial disease. * Renal: no nephropathy. * Neurologic: peripheral neuropathy. * 212lb weigh-in yesterday * having bradycardia 2/2 chiari malformation - her inspector health care facilities educated her that this is related, her neurologist confirmed and shared that cardiology can typically manage this symptom effectively * tube in ear collapse - she can't hear well and has more ear infections with ear tube * tolerating Trulicity 1.5mg - denies dyspepsia * agrees to updated labs to evaluate thyroid, metabolic panel, and A1C [facility] [employer] Work Phone: 1(827) 105-200206-20-2022 History of Present illness Narrative* 47-year-old female with a past medical history of cystic compulsive disorder and also history of Chiari malformation with brain surgery done approximately a year ago. Patient has been followed by gynecology service since June last year after patient was admitted to outside hospital. 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 Then she got some radiation into the right arm. Then she started noticing right arm and right lower extremity weakness and she went home with those symptoms. At home her blood pressure systolic was found to be in the 80s with heart rates in the 40s. She came to emergency departmentfor an evaluation. During telemetry patient states that her heart rate was always bradycardic. She was referred for cardiology for an evaluation. She had an a stress test and echocardiogram and also a Holter monitor that were unremarkable. * Echocardiogram in December 2022 shows left ventricular ejection fraction of 60 to 65% with no significant valvular normalities. Holter monitor in October 2022 shows underlying rhythm of sinus rhythmwith minimum heart rate 45 bpm maximal heart rate of 129 beats per hours heart of 64 bpm. There were brief episodes of nonsustained supraventricular tachycardia up to 4 beats of duration. Asymptomatic. No evidence of heart block or atrial fibrillation. Had a stress test in December 2022 shows no evidence of ischemia with a left ventricular ejection fraction of 69%. * Due to persisting of symptoms of palpitations chest discomfort and sometimes diaphoresis an event monitor was ordered in March 2023. Event monitor shows underlying rhythm was sinus rhythm. There were 23 triggered events with symptoms that they were not specified. 1 of these episodes were related with wide-complex tachycardia total of 9 beats that occurred on February 22, 2023 at 1 in the morning. rateof 173 bpm. * Based on the results of the event monitor a cardiac MRI was done that shows left ventricular actionfraction of 62% with delayed enhancement normal. No significant valvular normalities with mild asymmetric left ventricular hypertrophy.EKG performed today shows sinus rhythm rate of 71 bpm QRS duration 94 ms. QT corrected 430 ms. * Clinical impression * 1. Evidence of bradycardia during admission in outside hospital. * 2. Palpitations * 3. Evidence of nonsustained ventricular tachycardia on event monitor * 4. Normal left ventricular function per echocardiogram in 2022 and cardiac MRI in 2022 * 5. No evidence of ischemia per stress test in 2022 * 6. 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 Obsessive-compulsive disorder * Plan recommendations * I had a lengthy discussion with patient regarding symptoms of palpitations and also evidence of bradycardia during outside hospital evaluation and also nonsustained ventricular tachycardia. Patient will benefit of long-term monitoring with a loop recorder implantation. Procedure, risk, benefits and possible complications discussed with patient. All questions answered. * We will consider beta-oswald therapy depending on results of the loop recorder interrogations. * Follow my office in 7 days for wound assessment postprocedure. * Risk factor modifications and lifestyle modifications discussed with patient. Diet , exercise and hydration discussed during this office visit, as well as avoid alcohol, smoking and excessive caffeine use. * Prescriptions were refilled during this office visit * I have personally review with patient during this office visit, laboratory data, echocardiogram results, stress test results, Holter event monitor results prior and after the last electrophysiology visit. All questions has been answered. * Please excuse any errors in grammar or translation related to this dictation. Voice recognition software was utilized to prepare this document. [facility] [address] DO Work Phone: 1([phone]) 403-581406-08-2022 Hospital Discharge instructions Patient Education 04/15/2022 15:04:20 Finger Sprain, Adult, Neqi-op-Bvbl Finger Sprain, Adult A finger sprain is a tear or stretch in a ligament in your finger. Ligaments are tissues that connect bones to each other. Follow these instructions at home: If you have a splint: Do not put pressure on any part of the splint until it is fully hardened. This may take many hours. Wear the splint as told by your doctor. Take it off only as told by your doctor. Loosen the splint if your fingers tingle, lose feeling (get numb), or turn cold and blue. Keep the splint clean. If the splint is not waterproof: ?Do not let it get wet. ?Cover it with a watertight covering when you take a bath or a shower. If you have a cast: Do not put pressure on any part of the cast until it is fully hardened. This may take many hours. Do not stick anything inside the cast to scratch your skin. Check the skin around the cast every day. Tell your doctor about any concerns. You may put lotion on dry skin around the edges of the cast. Do not put lotion on the skin under the cast. Keep the cast clean. If the cast is not waterproof: ?Do not let it get wet. ?Cover it with a watertight covering when you take a bath or a shower. Managing pain, stiffness, and swelling If directed, put ice on the injured area: ?If you have a removable splint, take it off as told by your doctor. ?Put ice in a plastic bag. ?Place a towel between your skin and the bag or between your cast and the bag. ?Leave the ice on for 20 minutes, 2 3 times a day. Gently move your fingers often to avoid stiffness and to lessen swelling. Raise (elevate) the injured area above the level of your heart while you are sitting or lying down. Medicines Take bnin-bwe-frydytb and prescription medicines only as told by your doctor. Do not drive or use heavy machinery while taking prescription pain medicine. General instructions Keep any bandages (dressings) dry until your doctor says they can be taken off. Do exercises as told by your doctor or physical therapist. Do not wear rings on your injured finger. Keep all follow-up visits as told by your doctor. This is important. Get help right away if: Your pain is not helped by medicine. Your bruising or swelling gets worse. Your splint or cast is damaged. You lose feeling in your finger. Your finger turns blue. Your finger feels colder than normal when you touch it. You have a fever. Summary A finger sprain is a tear or stretch in a ligament in your finger. Ligaments are tissues that connect bones to each other. If you have a splint, loosen the splint if your fingers tingle, lose feeling (get numb), or turn cold and blue. Gently move your fingers often to avoid stiffness and to lessen swelling. If directed, put ice on the injured area. This information is not intended to replace advice given to you by your health care provider. Make sure you discuss any questions you have with your health care provider. Document Released: 11/27/2011 Document Revised: 10/07/2018 Document Reviewed: 01/14/2018 [employer] Patient Education 2020 [employer]. Follow Up Care 04/15/2022 14:08:44 With:Eddie SHANKS, STONE Dave Address:Unknown When:04/18/2022 [facility]06-08-2022 Evaluation + Plan noteExtracted from: Title:ED Note Author:Anette Manning PA-C Date :04/15/22 1. Unspecified sprain of lef t middle finger, initial encounter (S63.613A: Unspecified sprain of left middle finger, initial encounter) Orders: XR Hand 3+ Views Left [facility]06-06-2022 Evaluation note* Encounter Date Diagnosis Assessment Notes Treatment Notes Treatment Clinical Notes Apr, Asthma with COPD (ICD-10 - J44.9) Apr, Asthma (ICD-10 - J45.909) [facility] Other 05-12-2022 Evaluation note* Encounter Date Diagnosis Assessment Notes Treatment Notes Treatment Clinical Notes March, Asthma with COPD (ICD-10 - J44.9) March, Obstructive sleep apnea (ICD-10 - G47.33) March, Cigarette nicotine dependence (ICD-10 - F17.210) March, Arnold-Chiari syndrome (ICD-10 - Q07.00) [facility] Other 01-13-2022 Evaluation note* Encounter Date Diagnosis Assessment Notes Treatment Notes Treatment Clinical Notes Nov, Asthma (ICD-10 - J45.909) [facility] Other 01-04-2022 Evaluation note* Encounter Date Diagnosis Assessment Notes Treatment Notes Treatment Clinical Notes Nov, Asthma (ICD-10 - J45.909) [facility] Other 10-20-2021 History of Present illness Narrative* HIEN LAM is being seen for routine follow-up for, type 2 diabetes. Date of last HbA1c: 08/27/2021 and results: 7.5%. * Current DM Regimen:. diet controlled. orals. insulin. compliant with current DM regimen. * Home Glucose Monitoring: * Source: reported by patient. * Frequency of Testing: * Compliant with home glucose monitoring. * Glucose Ranges: 140-200. * No recent hypoglycemic episodes. * Diet Plan: * Type of Diet: Low carb * Patient is non-compliant with diet plan. * Cardiovascular: peripheral arterial disease. * Renal: no nephropathy. * Neurologic: peripheral neuropathy. * seizures are more violent from her mother's perspective * - new anti-seizure medications are helping * - plan for chirai malformation correction * intersted in medication re-do * sugar 140's in the AM and 250's after meals * - pt now has wheelchair * - pt is getting her neurology surgery in [facility] * - pt needs her ear drum drain removed , dog has been sniffing this R ear [facility] [place] [address] Work Phone: 1([phone]) 883-344410-20-2021 History of Present illness Narrative* HIEN LAM is being seen for routine follow-up for, type 2 diabetes. Date of last HbA1c: 08/27/2021 and results: 7.5%. * Current DM Regimen:. diet controlled. orals. insulin. compliant with current DM regimen. * Home Glucose Monitoring: * Source: reported by patient. * Frequency of Testing: * Compliant with home glucose monitoring. * Glucose Ranges: 140-200. * No recent hypoglycemic episodes. * Diet Plan: * Type of Diet: Low carb * Patient is non-compliant with diet plan. * Cardiovascular: peripheral arterial disease. * Renal: no nephropathy. * Neurologic: peripheral neuropathy. * seizures are more violent from her mother's perspective * - new anti-seizure medications are helping * - plan for chirai malformation correction * intersted in medication re-do to reduce number of overall medications * - we discussed options to stop pioglitazone and to start trulicity to lessen daily medication burden * risk/benefit of starting GLP1 medication was reviewed and discussed. Pt understands that this classof medication slows gastric emptying and improves pancreatic beta cell function. In order to minimize GI upset side effects, patient will follow titrated dosing. Risk of pancreatitis and c-cell thyroid cancers were discussed as most prevalent in rat studies, but to go to ER for sudden onset intenseabdominal pain. Patient agrees to start trulicity 0.75mg * sugar 140's in the AM and 250's after meals * - pt now has wheelchair * - pt is getting her neurology surgery in [facility] * - pt needs her ear drum drain removed , dog has been sniffing this R ear [facility] [place] [address] Work Phone: 1(945) 765-249210-20-2021 History of Present illness Narrative* HIEN LAM is being seen for routine follow-up for, type 2 diabetes. Date of last HbA1c: 08/27/2021 and results: 7.5%. * Current DM Regimen:. diet controlled. orals. insulin. compliant with current DM regimen. * Home Glucose Monitoring: * Source: reported by patient. * Frequency of Testing: * Compliant with home glucose monitoring. * Glucose Ranges: 140-200. * No recent hypoglycemic episodes. * Diet Plan: * Type of Diet: Low carb * Patient is non-compliant with diet plan. * Cardiovascular: peripheral arterial disease. * Renal: no nephropathy. * Neurologic: peripheral neuropathy. * Pt feels much better since getting her chiari malformation correction surgery. her sugar is more stable, she notes her neuropathy improved to only fingers and toes, no nausea * we discussed increase in trulicity to 1.5mg * sugar 140's in the AM and 250's after meals * - pt now has wheelchair * - pt is getting her neurology surgery in main campus * - pt needs her ear drum drain removed , dog has been sniffing this R ear HW-Pekmgrwqutweh-MQH [address] Work Phone: [phone] 860-603906-15-2021 History of Present illness Narrative* HIEN LAM is being seen for routine follow-up for, type 2 diabetes. Date of last HbA1c: 04/22/2021 and results: 7.5%. * Current DM Regimen:. diet controlled. orals. insulin. compliant with current DM regimen. * Home Glucose Monitoring: * Source: reported by patient. * Frequency of Testing: * Compliant with home glucose monitoring. * Glucose Ranges: 140-200. * No recent hypoglycemic episodes. * Diet Plan: * Type of Diet: Low carb * Patient is non-compliant with diet plan. * Pt has been enjoying more high carb foods at cookouts * Cardiovascular: peripheral arterial disease. * Renal: no nephropathy. * Neurologic: peripheral neuropathy. * Non Insulin Medications: pioglitazone, . * Insulin Administration: Insulin Pens * Short Acting Insulin: Humalog (lispro) * Insulin Sliding Scale: * Blood Glucose 0-149 mg/dl, 0 units at breakfast, 0 units at lunch, 0 units at dinner. * Blood Glucose 150-175 mg/dl, 1 units at breakfast, 1 units at lunch, 1 units at dinner. * Blood Glucose 176-200 mg/dl, 2 units at breakfast, 2 units at lunch, 2 units at dinner. * Blood Glucose 201-225 mg/dl. 3 units at breakfast 3 units at lunch 3 units at dinner * Blood Glucose 226-250 mg/dl, 4 units at breakfast, 4 units at lunch, 4 units at dinner. 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 Pt remains compliant in taking her novolog, pioglitazone, and korlym as directed. * Pt notes that her glucose has improved since restarting korlym. * She expresses concern for continued ssx of peripheral muscular weakness. we discussed this may be asymptom of cortisol withdraw. * Pt has been tolerating pioglitazone restart well with no pedal edema * Pt agrees to remain on spironolactone * Pt's glucose was well controlled previously on SGLT2i, but she suffered from persistant candidiasis * Pt would like to reduce medications, but we reviewed her med list and none are safely eliminated atthis time * pt had seizures 04/05/21 with new start of valproic acid as a result - lost urinary control in * - feels drunk on this med AR-Inndhwpnngnns-[facility] [address] Work Phone: 1(277) 709-724902-01-2021 History of Present illness Narrative* Hien Mahoney a 46-year-old young lady was seen today for follow-up of her Chiari I malformationwith syringomyelia and history of intractable seizure and chronic pain. Since last seen she has been seizure-free since December 2020 her first seizure was in 2009. Since her surgery her headaches have gone and she is able to ambulate without any difficulty and her symptoms has improved. Today her physical and neurological exam nonfocal and I would like to continue her Briviact and Fycompa the way she is taking and have discussed the seizure risk and the precautions to be taken and see her backin 6 months. * I did review of the medication list. ML-Sugdkaizu-[address] Work Phone: [phone]) 959-356801-06-2021 History of Present illness Narrative* HIEN LAM is being seen for routine follow-up for, type 2 diabetes. Date of last HbA1c: 11/13/2020 and results: 8.6%. * Current DM Regimen:. diet controlled. orals. insulin. compliant with current DM regimen. * Home Glucose Monitoring: * Source: reported by patient. * Frequency of Testing: * Compliant with home glucose monitoring. * Glucose Ranges: 140-200. * No recent hypoglycemic episodes. * Cardiovascular: peripheral arterial disease. * Renal: no nephropathy. * Neurologic: peripheral neuropathy. * Non Insulin Medications: pioglitazone, . * Insulin Administration: Insulin Pens * Short Acting Insulin: Humalog (lispro) * Insulin Sliding Scale: * Blood Glucose 0-149 mg/dl, 0 units at breakfast, 0 units at lunch, 0 units at dinner. * Blood Glucose 150-175 mg/dl, 1 units at breakfast, 1 units at lunch, 1 units at dinner. * Blood Glucose 176-200 mg/dl, 2 units at breakfast, 2 units at lunch, 2 units at dinner. * Blood Glucose 201-225 mg/dl. 3 units at breakfast 3 units at lunch 3 units at dinner * Blood Glucose 226-250 mg/dl, 4 units at breakfast, 4 units at lunch, 4 units at dinner. 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 Pt remains compliant in taking her novolog, pioglitazone, and korlym as directed. * Pt notes that her glucose has improve since restarting korlym. * She expresses concern for continued ssx of peripheral muscular weakness. we discussed this may be asymptom of cortisol withdraw. * Pt has been tolerating pioglitazone restart well with no pedal edema * Pt agrees to remain on spironolactone * Pt's glucose was well controlled previously on SGLT2i, but she suffered from persistant candidiasis * Pt would like to reduce medications, but we reviewed her med list and none are safely eliminated atthis time * pt had seizures 04/05/21 with new start of valproic acid as a result - lost urinary control in * - feels drunk on this med DN-Rhubenggteocd-THI [address] Work Phone: [phone]) 259-956202-07-2020 Evaluation + Plan note Future Appointments Appointment Date:12/15/2022 10:00:00 AM Scheduled Provider: Location:.[facility] Appointment Type:CV Echo (FT) Appointment Date:12/15/2022 11:30:00 AM Scheduled Provider: [facility] Type:NM Myocard Spect Multi Rest/Stress-Res Appointment Date:12/15/2022 12:30:00 PM Scheduled Provider: [facility] Type:NM Myocard Spect Multi Rest/Stress - R Appointment Date:12/15/2022 01:00:00 PM Scheduled Provider: [facility] App[facility] Type:NM Myocard Spect Multi Rest/Stress-Str Appointment Date:12/15/2022 02:00:00 PM Scheduled Provider: [facility] App[facility] Type:NM Myocar Spect Multi Rest/Stress - St Appointment Date:12/17/2022 09:30:00 AM Scheduled Provider:Gilberto ESTRADA CNP Location[facility] Appointment Type:Cardiology Follow Up (FT) Future Scheduled Tests Radiology* NM Myocardial Spect Rest/Stress 1 Day 12/15/22 * Echo Transthoracic Complete 2/7/23 [facility]01-10-2020 Evaluation + Plan note Future Appointments Appointment Date:11/17/2022 10:00:00 AM Scheduled Provider: Location:.[facility] Appointment Type:CV Echo (FT) Appointment Date:11/17/2022 11:30:00 AM Scheduled Provider: Location[facility] Appointment Type:NM Myocard Spect Multi Rest/Stress-Res Appointment Date:11/17/2022 12:30:00 PM Scheduled Provider: Location[facility] Appointment Type:NM Myocard Spect Multi Rest/Stress - R Appointment Date:11/17/2022 01:00:00 PM Scheduled Provider: Location[facility] Appointment Type:NM Myocard Spect Multi Rest/Stress-Str Appointment Date:11/17/2022 02:00:00 PM Scheduled Provider: Location[facility] Appointment Type:NM Myocar Spect Multi Rest/Stress - St Appointment Date:11/18/2022 09:30:00 AM Scheduled Provider:Gilberto ESTRADA CNP Location[facility] Appointment Type:Cardiology Follow Up (FT) Future Scheduled Tests Radiology* NM Myocardial Spect Rest/Stress 1 Day 11/17/22 * Echo Transthoracic Complete 11/17/22 [facility]02-13-2019 History of Past illness Narrative* Problem Noted Date Resolved Date Diabetes mellitus 12/21/2018 12/02/2020 Type 2 diabetes mellitus without complication 12/02/2020 Last Assessment & Plan: Assessment: takes Insulin and oral meds for control Last HGBA1C of 11/17/19(8.5) documented as of this encounter (statuses as of 05/08/2022) [facility]02-13-2019 History of Past illness Narrative* Problem Noted Date Resolved Date Diabetes mellitus 12/21/2018 12/02/2020 Type 2 diabetes mellitus without complication 12/02/2020 Last Assessment & Plan: Assessment: takes Insulin and oral meds for control Last HGBA1C of 11/17/19(8.5) documented as of this encounter (statuses as of 05/19/2022) [facility]02-13-2019 History of Past illness Narrative* Problem Noted Date Resolved Date Diabetes mellitus 12/21/2018 12/02/2020 Type 2 diabetes mellitus without complication 12/02/2020 Last Assessment & Plan: Assessment: takes Insulin and oral meds for control Last HGBA1C of 11/17/19(8.5) documented as of this encounter (statuses as of 06/18/2022) [facility]02-13-2019 History of Past illness Narrative* Problem Noted Date Resolved Date Diabetes mellitus 12/21/2018 12/02/2020 Type 2 diabetes mellitus without complication 12/02/2020 Last Assessment & Plan: Assessment: takes Insulin and oral meds for control Last HGBA1C of 11/17/19(8.5) documented as of this encounter (statuses as of 06/18/2022) [facility]02-13-2019 History of Past illness Narrative* Problem Noted Date Resolved Date Diabetes mellitus 12/21/2018 12/02/2020 Type 2 diabetes mellitus without complication 12/02/2020 Last Assessment & Plan: Assessment: takes Insulin and oral meds for control Last HGBA1C of 11/17/19(8.5) documented as of this encounter (statuses as of 07/17/2022) [facility]02-13-2019 History of Past illness Narrative* Problem Noted Date Resolved Date Diabetes mellitus 12/21/2018 12/02/2020 Type 2 diabetes mellitus without complication 12/02/2020 Last Assessment & Plan: Assessment: takes Insulin and oral meds for control Last HGBA1C of 11/17/19(8.5) documented as of this encounter (statuses as of 07/17/2022) [address]13-2019 History of Past illness Narrative* Problem Noted Date Diagnosed Date Resolved Date Diabetes mellitus 12/21/2018 12/02/2020 Type 2 diabetes mellitus without complication 05/29/20 16 12/02/2020 Last Assessment & Plan: Assessment: takes Insulin and oral meds for control Last HGBA1C of 11/17/19(8.5) documented as of this encounter (statuses as of 09/06/2023) [facility]02-13-2019 History of Past illness Narrative* Problem Noted Date Diagnosed Date Resolved Date Diabetes mellitus 12/21/2018 12/02/2020 Type 2 diabetes mellitus without complication 05/29/20 16 12/02/2020 Last Assessment & Plan: Assessment: takes Insulin and oral meds for control Last HGBA1C of 11/17/19(8.5) documented as of this encounter (statuses as of 09/06/2023) [facility]02-13-2019 History of Past illness Narrative* Problem Noted Date Diagnosed Date Resolved Date Diabetes mellitus 12/21/2018 12/02/2020 Type 2 diabetes mellitus without complication 05/29/20 16 12/02/2020 Last Assessment & Plan: Assessment: takes Insulin and oral meds for control Last HGBA1C of 11/17/19(8.5) documented as of this encounter (statuses as of 09/06/2023) [facility]02-13-2019 History of Past illness Narrative* Problem Noted Date Diagnosed Date Resolved Date Diabetes mellitus 12/21/2018 12/02/2020 Type 2 diabetes mellitus without complication 05/29/20 16 12/02/2020 Last Assessment & Plan: Assessment: takes Insulin and oral meds for control Last HGBA1C of 11/17/19(8.5) documented as of this encounter (statuses as of 01/13/2024) [facility]13-2019 History of Past illness Narrative* Problem Noted Date Diagnosed Date Resolved Date Diabetes mellitus 12/21/2018 12/02/2020 Type 2 diabetes mellitus without complication 05/29/20 16 12/02/2020 Last Assessment & Plan: Assessment: takes Insulin and oral meds for control Last HGBA1C of 11/17/19(8.5) documented as of this encounter (statuses as of 01/14/2024) [facility] - [facility]orted* npv * Neurologic Evaluation. * pt is here for seizures SP-Frwmattew-I[address]cf[address] Work Phone: chiyg complaint Narrative - Reported* f/u * Neurologic Evaluation. * pt is here for a follow up , test results [place] [address] Work Phone: chimh complaint Narrative - Reported* f/u * Neurologic Evaluation. * pt is doing well on [facility] [place] [address] Work Phone: chiez complaint Narrative - Reported* f/u * Neurologic Evaluation. * pt is doing well on meds [place] [address] Work Phone: chiac complaint Narrative - Reported* f/u * Neurologic Evaluation. * pt is doing well on [facility] Work Phone: Chiea complaint Narrative - Reported* f/u * Neurologic Evaluation. * pt is doing well on [facility] Work Phone: chief complaint Narrative - Reported* Patient is being seen for an initial Neurosurgical evaluation. * Has seen Neurology and found Chiari malformation. Having headaches and Blurry vision. Has neck and back pain. Has numbness and tingling in her hands and toes to her hips. AK-Togvczyaexdj-PKVUA Work Phone: chief complaint Narrative - Reported* F/U * Neurologic Evaluation. * Pt meds are doing good. [place] [address] Work Phone: chief complaint Narrative - Reported* F/U * Neurologic Evaluation. * Pt meds are doing good. [place] [address] Work Phone: Evaluation + Plan note Future Appointments Appointment Date:10/07/2022 09:30:00 AM Scheduled Provider:Gilberto ESTRADA CNP Location:[facility] Appointment Type:Cardiology Follow Up (FT) Future Scheduled Tests Radiology* NM Myocardial Spect Rest/Stress 1 Day 09/04/22 * Echo [facility]horacic [facility] Appointment Date:10/27/2022 11:00:00 AM Scheduled Provider: Location:FT[facility] Appointment Type:CV Holter/Event (FT) Appointment Date:11/18/2022 09:30:00 AM Scheduled Provider:Gilberto ESTRADA CNP Location:[facility] Appointment Type:Cardiology Follow Up (FT) Future Scheduled Tests Radiology* NM Myocardial Spect Rest/Stress 1 Day 10/07/22 * Echo Transthoracic [facility]07/22 [facility] Future App[facility]ments Appointment Date:10/27/2022 11:00:00 AM Scheduled Provider: Location:.[facility] Appointment Type:CV Holter/Event (FT) Appointment Date:11/17/2022 10:00:00 AM Scheduled Provider: Location:.[facility] Appointment Type:CV Echo (FT) Appointment Date:11/17/2022 11:30:00 AM Scheduled Provider: Location[facility] Appointment Type:NM Myocard Spect Multi Rest/Stress-Res Appointment Date:11/17/2022 12:30:00 PM Scheduled Provider: Location[facility] Appointment Type:NM Myocard Spect Multi Rest/Stress - R Appointment Date:11/17/2022 01:00:00 PM Scheduled Provider: Location[facility] Appointment Type:NM Myocard Spect Multi Rest/Stress-Str Appointment Date:11/17/2022 02:00:00 PM Scheduled Provider: Location[facility] Appointment Type:NM Myocar Spect Multi Rest/Stress - St Appointment Date:11/18/2022 09:30:00 AM Scheduled Provider:Gilberto ESTRADA CNP Location:[facility] Appointment Type:Cardiology Follow Up (FT) Future Scheduled Tests Radiology* NM Myocardial Spect Rest/Stress 1 Day 11/17/22 * Echo Transthoracic [facility] Future App[facility]ments Appointment Date:12/17/2022 09:30:00 AM Scheduled Provider:Gilberto ESTRADA CNP Location:[facility] Appointment Type:Cardiology Follow Up (FT) [facility] Future Appointments Appointment Date:03/10/2023 09:30:00 AM Scheduled Provider:Gilberto ESTRADA CNP Location:[facility] Appointment Type:Cardiology Follow Up (FT) [facility] Future Appointments Appointment Date:03/29/2023 11:15:00 AM Scheduled Provider:Gilberto ESTRADA CNP Location:[facility] Appointment Type:Cardiology Phone Visit (FT) Josué Alexi [facility] Other Evaluation note* Diagnosis Aortoiliac occlusive disease (HCC)- Primary Other arterial embolism and thrombosis of abdominal aorta documented in this encounter [facility] note* Diagnosis Vasculopathy- Primary Unspecified circulatory system disorder documented in this encounter [facility] note* Diagnosis Vasculopathy Unspecified circulatory system disorder Peripheral vascular disease (HCC) Peripheral vascular disease, unspecified documented in this encounter [facility] note* Diagnosis Aortoiliac occlusive disease (HCC)- Primary Other arterial embolism and thrombosis of abdominal aorta Nicotine use disorder, F17.2 Tobacco use disorder [facility]* Diagnosis Chest pain, unspecified type- Primary [facility] Vasculopathy- Primary Unspecified circulatory system disorder Aortoiliac occlusive disease (HCC) Other arterial embolism and thrombosis of abdominal aorta documented in this encounter [facility] note* Diagnosis Subclavian arterial stenosis (HCC)- Primary Stricture of artery Aortoiliac occlusive disease (HCC) Other arterial embolism and thrombosis of abdominal aorta Primary hypertension Unspecified essential hypertension Controlled type 2 diabetes mellitus without complication, without long-term current use of insulin (HCC) Hyperlipidemia, unspecified hyperlipidemia type Chronic pain of both knees documented in this encounter [facility] note* Diagnosis Subclavian arterial stenosis (HCC)- Primary Stricture of artery documented in this encounter [facility] note* Diagnosis Syncope and collapse- Primary Diabetes mellitus type II, non insulin dependent (CMS/HCC)- Primary Type II or unspecified type diabetes mellitus without mention of complication, not stated as uncontrolled History of thyroid nodule Other emphysema (CMS/HCC) Other emphysema Syringomyelia (CMS/HCC) Syringomyelia and syringobulbia Seizure disorder (CMS/HCC) Unspecified epilepsy without mention of intractable epilepsy Diabetic polyneuropathy associated with type 2 diabetes mellitus (CMS/HCC) Hypercortisolism (CMS/HCC) [place]unc[place]'s syndrome 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 (CMS/HCC) Syncope and collapse documented in this encounter [facility] Work Phone: Evaluation note* Diagnosis Acute nonsuppurative otitis media- Primary Unspecified acute nonsuppurative otitis media Otorrhea of right ear Impacted cerumen of right ear Impacted cerumen documented in this encounter [facility] Work Phone: Evaluation noteNo [facility] Other Evaluation note* Diagnosis Acute nonsuppurative otitis media- Primary Unspecified acute nonsuppurative otitis media documented in this encounter [facility] Work Phone: Evaluation note* Diagnosis Primary osteoarthritis of both knees- Primary Syncope and collapse Wide-complex tachycardia Paroxysmal ventricular tachycardia Palpitations Night sweats Generalized hyperhidrosis Syncope and collapse Wide-complex tachycardia Paroxysmal ventricular tachycardia Palpitations Night sweats Generalized hyperhidrosis documented in this encounter [facility] Work Phone: Evaluation note* Diagnosis Syncope and collapse Wide-complex tachycardia Paroxysmal ventricular tachycardia Palpitations Night sweats Generalized hyperhidrosis Wide-complex tachycardia Paroxysmal ventricular tachycardia Syncope and collapse Wide-complex tachycardia Paroxysmal ventricular tachycardia Palpitations Night sweats Generalized hyperhidrosis documented in this encounter [facility] Work Phone: Evaluation note* Diagnosis Syncope and collapse Wide-complex tachycardia Paroxysmal ventricular tachycardia Palpitations Night sweats Generalized hyperhidrosis Wide-complex tachycardia Paroxysmal ventricular tachycardia Syncope and collapse Wide-complex tachycardia Paroxysmal ventricular tachycardia Palpitations Night sweats Generalized hyperhidrosis documented in this encounter [facility] Work Phone: Evaluation note* Diagnosis Wide-complex tachycardia- Primary Paroxysmal ventricular tachycardia Syncope and collapse Wide-complex tachycardia Paroxysmal ventricular tachycardia Palpitations Night sweats Generalized hyperhidrosis Irregular menses Irregular menstrual cycle Syncope and collapse Palpitations Night sweats Generalized hyperhidrosis Syncope and collapse Wide-complex tachycardia Paroxysmal ventricular tachycardia Palpitations Night sweats Generalized hyperhidrosis documented in this encounter [facility] Work Phone: Evaluation note* Diagnosis Chest pain, unspecified type Shortness of breath HTN (hypertension), benign Essential hypertension, benign Hypercholesterolemia Pure hypercholesterolemia Atherosclerosis of 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 Diabetes mellitus type II, non insulin dependent ([facility]) Type II or unspecified type diabetes mellitus without mention of complication, not stated as uncontrolled 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 ([facility]) COPD with asthma АННА on CPAP Current every day smoker BMI 35.0-35.9,adult Bruit of right carotid artery documented in this encounter [facility] Work Phone: Evaluation note* Diagnosis HTN (hypertension), benign Essential hypertension, benign Hypercholesterolemia Pure hypercholesterolemia Hyperlipidemia LDL goal <100 Other and unspecified hyperlipidemia Bruit of right carotid artery documented in this encounter [facility] Work Phone: Evaluation note* Diagnosis PAD (peripheral artery disease) ([facility])- Primary Peripheral vascular disease, unspecified Diabetes mellitus type 2 with peripheral artery disease (HCC) Type II or unspecified type diabetes mellitus with peripheral circulatory disorders, not stated as uncontrolled Hyperlipidemia, unspecified hyperlipidemia type Pulmonary emphysema, unspecified emphysema type ([facility]) Mario's syndrome (HCC) Muncie's syndrome Morbid obesity (HCC) Morbid obesity Primary hypertension Unspecified essential hypertension Cardiac arrhythmia due to premature depolarization, unspecified type [facility] Diagnosis Vasculopathy Unspecified circulatory system disorder [facility]* Diagnosis Chest pain, unspecified type Shortness of breath HTN (hypertension), benign Essential hypertension, benign Hyperlipidemia LDL goal <100 Other and unspecified hyperlipidemia Palpitations documented in this encounter [facility] Work Phone: Evaluation note* Diagnosis Abnormal findings on diagnostic imaging of heart and coronary circulation documented in this encounter [facility] Work Phone: Evaluation note* Diagnosis Presence of other cardiac implants and grafts Palpitations documented in this encounter [facility] Work Phone: Evaluation note* Diagnosis Diabetes mellitus type II, non insulin dependent ([facility])- Primary Type II or unspecified type diabetes mellitus without mention of complication, not stated as uncontrolled Diabetic polyneuropathy associated with type 2 diabetes mellitus ([facility]) Multinodular goiter (nontoxic) Nontoxic multinodular goiter Morbid obesity ([facility]) Morbid obesity Current every day smoker documented in this encounter [facility] Work Phone: Evaluation note* Diagnosis Chest pain, unspecified type NSVT (nonsustained ventricular tachycardia) ([facility]) Status post placement of implantable loop recorder Atherosclerosis of [place] artery of both lower extremities with intermittent claudication ([facility]) Aortoiliac occlusive disease ([facility]) HTN (hypertension), benign Essential hypertension, benign Hypercholesterolemia Pure hypercholesterolemia Type 2 diabetes mellitus with other circulatory complication, without long-term current use of insulin ([facility]) BMI 32.0-32.9,adult Bipolar 2 disorder, major depressive episode ([facility]) Anxiety Anxiety state, unspecified Drug abuse ([facility]) Other, mixed, or unspecified nondependent drug abuse, unspecified 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 ([facility]) Chronic obstructive pulmonary disease, unspecified COPD type ([facility]) COPD with asthma ([facility]) АННА on CPAP Current every day smoker Hyperlipidemia LDL goal <100 Other and unspecified hyperlipidemia documented in this encounter [facility] Work Phone: Evaluation note* Diagnosis Presence of other cardiac implants and grafts Palpitations documented in this encounter [facility] Work Phone: Evaluation note* Diagnosis 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 (Multi)- Primary Partial symptomatic epilepsy with complex partial seizures, intractable, without status epilepticus (Multi) Syringomyelia (Multi) Syringomyelia and syringobulbia Chronic tension-type headache, intractable Chronic tension type headache documented in this encounter [facility] Work Phone: Evaluation note* Diagnosis Wide-complex tachycardia- Primary Paroxysmal ventricular tachycardia Pacemaker reprogramming/check Fitting and adjustment of cardiac pacemaker Palpitations Sinus node dysfunction (Multi) Status post placement of implantable loop recorder BMI 32.0-32.9,adult Current every day smoker Sick sinus syndrome (Multi) Sinoatrial node dysfunction Bradycardia Other specified cardiac dysrhythmias Dizziness Dizziness and giddiness Sinus node dysfunction (Multi) Sick sinus syndrome (Multi) Sinoatrial node dysfunction Bradycardia Other specified cardiac dysrhythmias Dizziness Dizziness and giddiness Sinus node dysfunction (Multi) Sick sinus syndrome (Multi) Sinoatrial node dysfunction Bradycardia Other specified cardiac dysrhythmias Dizziness Dizziness and giddiness documented in this encounter [facility] Work Phone: Evaluation note* Diagnosis Irregular menses Irregular menstrual cycle Sinus node dysfunction (Multi) Sick sinus syndrome (Multi) Sinoatrial node dysfunction Bradycardia Other specified cardiac dysrhythmias Dizziness Dizziness and giddiness Sinus node dysfunction (Multi) Sick sinus syndrome (Multi) Sinoatrial node dysfunction Bradycardia Other specified cardiac dysrhythmias Dizziness Dizziness and giddiness documented in this encounter [facility] Work Phone: Evaluation note* Diagnosis Vitamin D deficiency- Primary Diabetes mellitus type II, non insulin dependent (Multi) Type II or unspecified type diabetes mellitus without mention of complication, not stated as uncontrolled Multinodular goiter (nontoxic) Nontoxic multinodular goiter Morbid obesity (Multi) Morbid obesity Cardiac pacemaker in situ- Primary Sinus node dysfunction (Multi) Sick sinus syndrome (Multi) Sinoatrial node dysfunction Pacemaker Cardiac pacemaker in situ NSVT (nonsustained ventricular tachycardia) (Multi) BMI 34.0-34.9,adult Current every day smoker documented in this encounter [facility] Work Phone: Evaluation note* Diagnosis Vitamin D deficiency- Primary Diabetes mellitus type II, non insulin dependent (Multi) Type II or unspecified type diabetes mellitus without mention of complication, not stated as uncontrolled Multinodular goiter (nontoxic) Nontoxic multinodular goiter Morbid obesity (Multi) Morbid obesity Pacemaker Cardiac pacemaker in situ documented in this encounter [facility] Work Phone: Evaluation note* Diagnosis Vitamin D deficiency- Primary Diabetes mellitus type II, non insulin dependent (Multi) Type II or unspecified type diabetes mellitus without mention of complication, not stated as uncontrolled Multinodular goiter (nontoxic) Nontoxic multinodular goiter Morbid obesity (Multi) Morbid obesity Pacemaker Cardiac pacemaker in situ documented in this encounter [facility] Work Phone: Evaluation note* Diagnosis Vitamin D deficiency- Primary Diabetes mellitus type II, non insulin dependent (Multi) Type II or unspecified type diabetes mellitus without mention of complication, not stated as uncontrolled Multinodular goiter (nontoxic) Nontoxic multinodular goiter Morbid obesity (Multi) Morbid obesity Partial symptomatic epilepsy with complex partial seizures, intractable, without status epilepticus (Multi)- Primary 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 (Multi) Syringomyelia (Multi) Syringomyelia and syringobulbia Neuropathy Mononeuritis of unspecified site Migraine without aura and without status migrainosus, not intractable documented in this encounter [facility] Work Phone: Evaluation note* Diagnosis Vitamin D deficiency- Primary Diabetes mellitus type II, non insulin dependent (Multi) Type II or unspecified type diabetes mellitus without mention of complication, not stated as uncontrolled Multinodular goiter (nontoxic) Nontoxic multinodular goiter Morbid obesity (Multi) Morbid obesity Partial symptomatic epilepsy with complex partial seizures, intractable, without status epilepticus (Multi) documented in this encounter [facility] Work Phone: Evaluation note* Diagnosis Vitamin D deficiency- Primary Diabetes mellitus type II, non insulin dependent (Multi) Type II or unspecified type diabetes mellitus without mention of complication, not stated as uncontrolled Multinodular goiter (nontoxic) Nontoxic multinodular goiter Morbid obesity (Multi) Morbid obesity History of tympanostomy tube placement- Primary Vertigo Dizziness and giddiness documented in this encounter [facility] Work Phone: Evaluation note* Diagnosis Sinus node dysfunction (Multi)- Primary Sinus node dysfunction (Multi) Sick sinus syndrome (Multi) Sinoatrial node dysfunction Bradycardia Other specified cardiac dysrhythmias Dizziness Dizziness and giddiness NSVT (nonsustained ventricular tachycardia) (Multi) Pacemaker Cardiac pacemaker in situ Encounter for preprocedural cardiovascular examination Postoperative pain Other acute postoperative pain Bradycardia Other specified cardiac dysrhythmias Sick sinus syndrome (Multi) Sinoatrial node dysfunction Dizziness Dizziness and giddiness Sinus node dysfunction (Multi) Sick sinus syndrome (Multi) Sinoatrial node dysfunction Bradycardia Other specified cardiac dysrhythmias Dizziness Dizziness and giddiness documented in this encounter [facility] Work Phone: Evaluation note* Diagnosis History of tympanostomy tube placement- Primary documented in this encounter [facility] Work Phone: Evaluation note* Diagnosis Vitamin D deficiency- Primary Diabetes mellitus type II, non insulin dependent (Multi) Type II or unspecified type diabetes mellitus without mention of complication, not stated as uncontrolled Multinodular goiter (nontoxic) Nontoxic multinodular goiter Morbid obesity (Multi) Morbid obesity 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 (Multi)- Primary documented in this encounter [facility] Work Phone: Evaluation note* Diagnosis Vitamin D deficiency- Primary Diabetes mellitus type II, non insulin dependent (Multi) Type II or unspecified type diabetes mellitus without mention of complication, not stated as uncontrolled Multinodular goiter (nontoxic) Nontoxic multinodular goiter Morbid obesity (Multi) Morbid obesity documented in this encounter [facility] Work Phone: Evaluation note* Diagnosis Vitamin D deficiency- Primary Diabetes mellitus type II, non insulin dependent (Multi) Type II or unspecified type diabetes mellitus without mention of complication, not stated as uncontrolled Multinodular goiter (nontoxic) Nontoxic multinodular goiter Morbid obesity (Multi) Morbid obesity Cardiac pacemaker in situ documented in this encounter [facility] Work Phone: Evaluation note* Diagnosis Vitamin D deficiency- Primary Diabetes mellitus type II, non insulin dependent (Multi) Type II or unspecified type diabetes mellitus without mention of complication, not stated as uncontrolled Multinodular goiter (nontoxic) Nontoxic multinodular goiter Morbid obesity (Multi) Morbid obesity Seizure (Multi)- Primary Other convulsions Partial symptomatic epilepsy with complex partial seizures, intractable, without status epilepticus (Multi) 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 (Multi) Diabetic polyneuropathy associated with type 2 diabetes mellitus (Multi) documented in this encounter [facility] Work Phone: Evaluation note* Diagnosis Vitamin D deficiency- Primary Diabetes mellitus type II, non insulin dependent (Multi) Type II or unspecified type diabetes mellitus without mention of complication, not stated as uncontrolled Multinodular goiter (nontoxic) Nontoxic multinodular goiter Morbid obesity (Multi) Morbid obesity Diabetes mellitus type II, non insulin dependent (Multi)- Primary Type II or unspecified type diabetes mellitus without mention of complication, not stated as uncontrolled Class 2 severe obesity with serious comorbidity and body mass index (BMI) of 35.0 to 35.9 in adult, unspecified obesity type Multinodular goiter (nontoxic) Nontoxic multinodular goiter Morbid obesity (Multi) Morbid obesity documented in this encounter [facility] Work Phone: Evaluation note* Diagnosis Vitamin D deficiency- Primary Diabetes mellitus type II, non insulin dependent (Multi) Type II or unspecified type diabetes mellitus without mention of complication, not stated as uncontrolled Multinodular goiter (nontoxic) Nontoxic multinodular goiter Morbid obesity (Multi) Morbid obesity Diabetes mellitus type II, non insulin dependent (Multi)- Primary Type II or unspecified type diabetes mellitus without mention of complication, not stated as uncontrolled Class 2 severe obesity with serious comorbidity and body mass index (BMI) of 35.0 to 35.9 in adult, unspecified obesity type Multinodular goiter (nontoxic) Nontoxic multinodular goiter Morbid obesity (Multi) Morbid obesity Coronary artery disease involving [place] coronary artery of [place] heart, unspecified whether angina present NSVT (nonsustained ventricular tachycardia) (Multi) Status post placement of implantable loop recorder Atherosclerosis of [place] artery of both lower extremities with intermittent claudication 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 (Multi) HTN (hypertension), benign Essential hypertension, benign Hyperlipidemia LDL goal <100 Other and unspecified hyperlipidemia Diabetes mellitus type II, non insulin dependent (Multi) Type II or unspecified type diabetes mellitus without mention of complication, not stated as uncontrolled АННА on CPAP Current every day smoker Asthma-chronic obstructive pulmonary disease overlap syndrome (Multi) Bipolar 2 disorder, major depressive episode (Multi) Anxiety Anxiety state, unspecified Drug abuse Other, mixed, or unspecified nondependent drug abuse, unspecified Chest pain, unspecified type documented in this encounter [facility] Work Phone: Evaluation note* Diagnosis Seizure (HCC) Other convulsions Pre-op exam- Primary Preoperative examination, unspecified Abnormal loss of weight Loss of weight Constipation, unspecified constipation type Rectal bleed Hemorrhage of rectum and anus Epigastric pain Abdominal pain, epigastric Nausea and vomiting, intractability of vomiting not specified, unspecified vomiting type Uncontrolled type 2 diabetes mellitus with peripheral neuropathy Type II or unspecified type diabetes mellitus with neurological manifestations, uncontrolled Essential hypertension Unspecified essential hypertension Other emphysema (HCC) Other emphysema Harjinder's gland hyperplasia of duodenum Other specified disorder of stomach and duodenum Chronic obstructive pulmonary disease, unspecified COPD type (HCC) Seizure (HCC) Other convulsions 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 artery of both lower extremities with intermittent claudication Atherosclerosis of [place] arteries of the extremities with intermittent claudication Sleep apnea, unspecified type Polycystic disease, ovaries Polycystic ovaries Drug abuse (HCC) Other, mixed, or unspecified nondependent drug abuse, unspecified H/O ETOH abuse Nondependent alcohol abuse, in remission Aortoiliac occlusive disease (HCC) Other arterial embolism and thrombosis of abdominal aorta Morbid obesity (HCC) Morbid obesity High blood cholesterol Pure hypercholesterolemia Occlusion and stenosis of unspecified carotid artery- Primary PAD (peripheral artery disease) Peripheral vascular disease, unspecified Subclavian arterial stenosis Stricture of [facility] Vitamin D deficiency- Primary Diabetes mellitus type II, non insulin dependent (Multi) Type II or unspecified type diabetes mellitus without mention of complication, not stated as uncontrolled Multinodular goiter (nontoxic) Nontoxic multinodular goiter Morbid obesity (Multi) Morbid obesity Diabetes mellitus type II, non insulin dependent (Multi)- Primary Type II or unspecified type diabetes mellitus without mention of complication, not stated as uncontrolled Class 2 severe obesity with serious comorbidity and body mass index (BMI) of 35.0 to 35.9 in adult, unspecified obesity type Multinodular goiter (nontoxic) Nontoxic multinodular goiter Morbid obesity (Multi) Morbid obesity Coronary artery disease involving [place] coronary artery of [place] heart, unspecified whether angina present- Primary NSVT (nonsustained ventricular tachycardia) (Multi) Current every day smoker Sinus node dysfunction (Multi) High cholesterol Pure hypercholesterolemia Cardiac pacemaker in situ BMI 37.0-37.9, adult documented in this encounter [facility] Work Phone: Evaluation note* Diagnosis Vitamin D deficiency- Primary Diabetes mellitus type II, non insulin dependent (Multi) Type II or unspecified type diabetes mellitus without mention of complication, not stated as uncontrolled Multinodular goiter (nontoxic) Nontoxic multinodular goiter Morbid obesity (Multi) Morbid obesity Diabetes mellitus type II, non insulin dependent (Multi)- Primary Type II or unspecified type diabetes mellitus without mention of complication, not stated as uncontrolled Class 2 severe obesity with serious comorbidity and body mass index (BMI) of 35.0 to 35.9 in adult, unspecified obesity type Multinodular goiter (nontoxic) Nontoxic multinodular goiter Morbid obesity (Multi) Morbid obesity Cardiac pacemaker in situ documented in this encounter [facility] Work Phone: Evaluation note* Diagnosis 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 HealthcareEvaluation [facility]* Diagnosis Neck pain- Primary Cervicalgia documented in this encounter [facility]* Diagnosis Vitamin D deficiency- Primary Diabetes mellitus type II, non insulin dependent (Multi) Type II or unspecified type diabetes mellitus without mention of complication, not stated as uncontrolled Multinodular goiter (nontoxic) Nontoxic multinodular goiter Morbid obesity (Multi) Morbid obesity Diabetes mellitus type II, non insulin dependent (Multi)- Primary Type II or unspecified type diabetes mellitus without mention of complication, not stated as uncontrolled Class 2 severe obesity with serious comorbidity and body mass index (BMI) of 35.0 to 35.9 in adult, unspecified obesity type Multinodular goiter (nontoxic) Nontoxic multinodular goiter Morbid obesity (Multi) Morbid obesity Coronary artery disease involving [place] coronary artery of [place] heart, unspecified whether angina present NSVT (nonsustained ventricular tachycardia) (Multi) COPD with asthma (Multi) Atherosclerosis of [place] artery of both lower extremities with intermittent claudication Right subclavian artery occlusion Seizure disorder (Multi) Unspecified epilepsy without mention of intractable epilepsy 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 (Multi) HTN (hypertension), benign Essential hypertension, benign Hyperlipidemia LDL goal <100 Other and unspecified hyperlipidemia Type 2 diabetes mellitus with other circulatory complication, without long-term current use of insulin Bipolar 2 disorder, major depressive episode (Multi) АННА on CPAP Current every day smoker Aortoiliac occlusive disease (Multi) Occlusion and stenosis of bilateral carotid arteries PAD (peripheral artery disease) Unspecified peripheral vascular disease documented in this encounter [facility] Work Phone: Evaluation note* Diagnosis Vitamin D deficiency- Primary Diabetes mellitus type II, non insulin dependent (Multi) Type II or unspecified type diabetes mellitus without mention of complication, not stated as uncontrolled Multinodular goiter (nontoxic) Nontoxic multinodular goiter Morbid obesity (Multi) Morbid obesity Diabetes mellitus type II, non insulin dependent (Multi)- Primary Type II or unspecified type diabetes mellitus without mention of complication, not stated as uncontrolled Class 2 severe obesity with serious comorbidity and body mass index (BMI) of 35.0 to 35.9 in adult, unspecified obesity type Multinodular goiter (nontoxic) Nontoxic multinodular goiter Morbid obesity (Multi) Morbid obesity Carpal tunnel syndrome, bilateral Carpal tunnel syndrome documented in this encounter [facility] Work Phone: Evaluation note* Diagnosis Vitamin D deficiency- Primary Diabetes mellitus type II, non insulin dependent (Multi) Type II or unspecified type diabetes mellitus without mention of complication, not stated as uncontrolled Multinodular goiter (nontoxic) Nontoxic multinodular goiter Morbid obesity (Multi) Morbid obesity Diabetes mellitus type II, non insulin dependent (Multi)- Primary Type II or unspecified type diabetes mellitus without mention of complication, not stated as uncontrolled Class 2 severe obesity with serious comorbidity and body mass index (BMI) of 35.0 to 35.9 in adult, unspecified obesity type Multinodular goiter (nontoxic) Nontoxic multinodular goiter Morbid obesity (Multi) Morbid obesity Coronary artery disease involving [place] coronary artery of [place] heart, unspecified whether angina present Chest pain, unspecified type documented in this encounter [facility] Work Phone: Evaluation note* Diagnosis Vitamin D deficiency- Primary Diabetes mellitus type II, non insulin dependent (Multi) Type II or unspecified type diabetes mellitus without mention of complication, not stated as uncontrolled Multinodular goiter (nontoxic) Nontoxic multinodular goiter Morbid obesity (Multi) Morbid obesity Diabetes mellitus type II, non insulin dependent (Multi)- Primary Type II or unspecified type diabetes mellitus without mention of complication, not stated as uncontrolled Class 2 severe obesity with serious comorbidity and body mass index (BMI) of 35.0 to 35.9 in adult, unspecified obesity type Multinodular goiter (nontoxic) Nontoxic multinodular goiter Morbid obesity (Multi) Morbid obesity Occlusion and stenosis of bilateral carotid arteries documented in this encounter [facility] Work Phone: Evaluation note* Diagnosis Vitamin D deficiency- Primary Diabetes mellitus type II, non insulin dependent (Multi) Type II or unspecified type diabetes mellitus without mention of complication, not stated as uncontrolled Multinodular goiter (nontoxic) Nontoxic multinodular goiter Morbid obesity (Multi) Morbid obesity Diabetes mellitus type II, non insulin dependent (Multi)- Primary Type II or unspecified type diabetes mellitus without mention of complication, not stated as uncontrolled Class 2 severe obesity with serious comorbidity and body mass index (BMI) of 35.0 to 35.9 in adult, unspecified obesity type Multinodular goiter (nontoxic) Nontoxic multinodular goiter Morbid obesity (Multi) Morbid obesity Seizures (Multi) Other convulsions documented in this encounter [facility] Work Phone: Evaluation note* Diagnosis Vitamin D deficiency- Primary Diabetes mellitus type II, non insulin dependent (Multi) Type II or unspecified type diabetes mellitus without mention of complication, not stated as uncontrolled Multinodular goiter (nontoxic) Nontoxic multinodular goiter Morbid obesity (Multi) Morbid obesity Diabetes mellitus type II, non insulin dependent (Multi)- Primary Type II or unspecified type diabetes mellitus without mention of complication, not stated as uncontrolled Class 2 severe obesity with serious comorbidity and body mass index (BMI) of 35.0 to 35.9 in adult, unspecified obesity type Multinodular goiter (nontoxic) Nontoxic multinodular goiter Morbid obesity (Multi) Morbid obesity Carpal tunnel syndrome, left- Primary Carpal tunnel syndrome Carpal tunnel syndrome on right Carpal tunnel syndrome documented in this encounter [facility] Work Phone: Evaluation note* Diagnosis 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)- Primary Type II or unspecified type diabetes mellitus with neurological manifestations, not stated as uncontrolled Vitamin D deficiency Hyperlipemia, mixed Mixed hyperlipidemia Encounter for dietary consultation Class 2 severe obesity due to excess calories with serious comorbidity and body mass index (BMI) of 39.0 to 39.9 in adult ([facility]) Hypercortisolism ([facility]) Mario's syndrome documented in this encounter [facility] HealthcareEvaluation note* Diagnosis Chronic pain of both knees- Primary documented in this encounter [facility] HealthcareEvaluation note* Diagnosis Vitamin D deficiency- Primary Diabetes mellitus type II, non insulin dependent (Multi) Type II or unspecified type diabetes mellitus without mention of complication, not stated as uncontrolled Multinodular goiter (nontoxic) Nontoxic multinodular goiter Morbid obesity (Multi) Morbid obesity Diabetes mellitus type II, non insulin dependent (Multi)- Primary Type II or unspecified type diabetes mellitus without mention of complication, not stated as uncontrolled Class 2 severe obesity with serious comorbidity and body mass index (BMI) of 35.0 to 35.9 in adult, unspecified obesity type Multinodular goiter (nontoxic) Nontoxic multinodular goiter Morbid obesity (Multi) Morbid obesity Sinus node dysfunction (Multi) Cardiac pacemaker in situ documented in this encounter [facility] Work Phone: Evaluation note* Diagnosis Vitamin D deficiency- Primary Diabetes mellitus type II, non insulin dependent (Multi) Type II or unspecified type diabetes mellitus without mention of complication, not stated as uncontrolled Multinodular goiter (nontoxic) Nontoxic multinodular goiter Morbid obesity (Multi) Morbid obesity Diabetes mellitus type II, non insulin dependent (Multi)- Primary Type II or unspecified type diabetes mellitus without mention of complication, not stated as uncontrolled Class 2 severe obesity with serious comorbidity and body mass index (BMI) of 35.0 to 35.9 in adult, unspecified obesity type Multinodular goiter (nontoxic) Nontoxic multinodular goiter Morbid obesity (Multi) Morbid obesity Right subclavian artery occlusion- Primary Hyperlipidemia LDL goal <100 Other and unspecified hyperlipidemia HTN (hypertension), benign Essential hypertension, benign Aortoiliac occlusive disease (Multi) Atherosclerosis of [place] artery of both lower extremities with intermittent claudication BMI 38.0-38.9,adult Drug abuse Other, mixed, or unspecified nondependent drug abuse, unspecified H/O ETOH abuse Current every day smoker Intermittent claudication Unspecified peripheral vascular disease documented in this encounter [facility] Work Phone: Evaluation note* Diagnosis Vitamin D deficiency- Primary Diabetes mellitus type II, non insulin dependent (Multi) Type II or unspecified type diabetes mellitus without mention of complication, not stated as uncontrolled Multinodular goiter (nontoxic) Nontoxic multinodular goiter Morbid obesity (Multi) Morbid obesity Diabetes mellitus type II, non insulin dependent (Multi)- Primary Type II or unspecified type diabetes mellitus without mention of complication, not stated as uncontrolled Class 2 severe obesity with serious comorbidity and body mass index (BMI) of 35.0 to 35.9 in adult, unspecified obesity type Multinodular goiter (nontoxic) Nontoxic multinodular goiter Morbid obesity (Multi) Morbid obesity Partial symptomatic epilepsy with complex partial seizures, intractable, without status epilepticus- Primary 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 (Multi) Syringomyelia (Multi) 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 documented in this encounter [facility] Work Phone: Evaluation note* Diagnosis Vitamin D deficiency- Primary Diabetes mellitus type II, non insulin dependent (Multi) Type II or unspecified type diabetes mellitus without mention of complication, not stated as uncontrolled Multinodular goiter (nontoxic) Nontoxic multinodular goiter Morbid obesity (Multi) Morbid obesity Diabetes mellitus type II, non insulin dependent (Multi)- Primary Type II or unspecified type diabetes mellitus without mention of complication, not stated as uncontrolled Class 2 severe obesity with serious comorbidity and body mass index (BMI) of 35.0 to 35.9 in adult, unspecified obesity type Multinodular goiter (nontoxic) Nontoxic multinodular goiter Morbid obesity (Multi) Morbid obesity Aortoiliac occlusive disease (Multi) Atherosclerosis of 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)- Primary Type II or unspecified type diabetes mellitus with neurological manifestations, not stated as uncontrolled Vitamin D deficiency Hyperlipemia, mixed Mixed hyperlipidemia Encounter for dietary consultation Class 2 severe obesity due to excess calories with serious comorbidity and body mass index (BMI) of 36.0 to 36.9 in adult ([facility]) 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 [facility] HealthcareEvaluation note* Diagnosis Vitamin D deficiency- Primary Diabetes mellitus type II, non insulin dependent (Multi) Type II or unspecified type diabetes mellitus without mention of complication, not stated as uncontrolled Multinodular goiter (nontoxic) Nontoxic multinodular goiter Morbid obesity (Multi) Morbid obesity Diabetes mellitus type II, non insulin dependent (Multi)- Primary Type II or unspecified type diabetes mellitus without mention of complication, not stated as uncontrolled Class 2 severe obesity with serious comorbidity and body mass index (BMI) of 35.0 to 35.9 in adult, unspecified obesity type Multinodular goiter (nontoxic) Nontoxic multinodular goiter Morbid obesity (Multi) Morbid obesity Abnormal nuclear stress test Coronary artery disease involving [place] coronary artery of [place] heart, unspecified whether angina present documented in this encounter [facility] Work Phone: Evaluation note* Diagnosis Vitamin D deficiency- Primary Diabetes mellitus type II, non insulin dependent (Multi) Type II or unspecified type diabetes mellitus without mention of complication, not stated as uncontrolled Multinodular goiter (nontoxic) Nontoxic multinodular goiter Morbid obesity (Multi) Morbid obesity Diabetes mellitus type II, non insulin dependent (Multi)- Primary Type II or unspecified type diabetes mellitus without mention of complication, not stated as uncontrolled Class 2 severe obesity with serious comorbidity and body mass index (BMI) of 35.0 to 35.9 in adult, unspecified obesity type Multinodular goiter (nontoxic) Nontoxic multinodular goiter Morbid obesity (Multi) Morbid obesity Aortoiliac occlusive disease (Multi) Right subclavian artery occlusion documented in this encounter [facility] Work Phone: History general Narrative - ReportedNort [facility] Other History general Narrative - Reported* Type Description Date Medical History DM Medical History SEIZURE DISORDER Medical History NEUROPATHY Medical History SLEEP APNEA Medical History BIPOLAR Medical History asthma Medical History Muncie's disease Surgical History T & A Surgical History CHOLECYSTECTOMY Surgical History appendectomy 07/2018 Hospitalization History as above [facility] Other History general Narrative - Reported* Type Description Date Medical History DM Medical History SEIZURE DISORDER Medical History NEUROPATHY Medical History SLEEP APNEA Medical History BIPOLAR Medical History asthma Medical History Mario syndrome Surgical History T & A Surgical History CHOLECYSTECTOMY Surgical History appendectomy 07/2018 Surgical History brain surgery 12/04/2021 Hospitalization History as above [facility] Other History general Narrative - Reported* Type Description Date Medical History DM Medical History SEIZURE DISORDER Medical History NEUROPATHY Medical History SLEEP APNEA Medical History BIPOLAR Medical History asthma Medical History [place] syndrome Medical History bradycardia Surgical History T & A Surgical History CHOLECYSTECTOMY Surgical History appendectomy 07/2018 Surgical History brain surgery 12/04/2021 Hospitalization History as above [facility] Other History of Present illness Narrative* Hien Lam 45-year-old young lady who was seen today for evaluation of her recurrent seizures. 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. She had multiple seizures then she started smoking marijuana which seemed to have controlled her seizure. Prior to that she was tried on Depakote Dilantin Topamax Keppra which all did not seem to work with her and had side effects. Seizure around the weekend where she had a generalized tonic-clonic activity with her head turned towards 1 side and then tongue bite and was taken to the emergency room. She was stabilized and sent home without any medication. Since then she denies having any seizures but at that time her blood pressure was low and was given IV fluids. Based on the history of not sure whether it was idiopathic seizures versus hypotension resulting in a convulsive episode. Since she had a history of traumatic brain injury and multiple other risk factors for seizures I would like to try her on Briviact 10 mg twice a day and have scheduled her to have an MRI of the head and the EEG and have advised herto follow-up with an mail list processor for her uncontrolled diabetes and Mario's disease. I have discussed the seizure risk and the precaution with her and she does not drive which she and her understood and see her back in 2 to 3 months. * I did review all the medical records and the charts. 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 [facility]Exmnqnyqk[facility]Vzxsbvasd 201 Work Phone: History of Present illness Narrative* Hien Mahoney 45-year-old young lady who was seen today for follow-up of her intractable seizures with history of multiple medical problems including chronic headache. She has a history of polycystic ovarian syndrome as well as hyper cortisol lives in. Today her physical and neurological examination was unchanged. She continues to have breakthrough seizures and the EEG was normal. MRI did showa Chiari I malformation and cyst which was fairly benign. At this point I would like to increase the dose of Briviact 2 mg twice a day for a few weeks and then increase it to 200 mg twice a day if seizure continues. In the meantime she had seen an epileptologist at [facility] when she had herfirst seizure in 2007 and had continuous monitoring done. I would recommend her to be seen and followed by an epileptologist. In the meantime I have advised her to see a neurosurgeon for her Chiari Imalformation seen she continues to have persistent headache and may need surgery. I have scheduled her to come back and see me in 2 months and had a very long discussion about the planned course prognosis as well as the course of actions with her and her mom with the understood. * Does the MRI of the head and the EEG. [facility] 201 Work Phone: History of Present illness NarrativeBerkatherine Mahoney 26-year-old young lady who was seen today for follow-up of her Arnold-Chiari malformation with history of thoracic syringomyelia and intractable seizures. Since last seen she has been doing very well but had 1 or 2 minor seizure since adjusting her medication. Today her physical and neurological nonfocal and she was able to ambulate with the help of a walker. I have advised her to see her epileptologist in view of her intractable seizures since she has been tried on multiple medications in the past but would like to add Fycompa to Briviact. In the meantime I will refer her toneurosurgery for surgical evaluation of her Arnold-Chiari malformation. I have discussed the planned course and the prognosis with her and her mom who was in the room and see her back one more time in 3 months.TO-Jtqyvvyym-Gvstfxrhy 201 Work Phone: History of Present illness NarrativeHien Mahoney 26-year-old young lady who was seen today for follow-up of her Arnold-Chiari malformation with history of thoracic syringomyelia and intractable seizures. Since last seen she has been doing very well but had 1 or 2 minor seizure since adjusting her medication. Today her physical and neurological nonfocal and she was able to ambulate with the help of a walker. I have advised her to see her epileptologist in view of her intractable seizures since she has been tried on multiple medications in the past but would like to add Fycompa to Briviact. In the meantime I will refer her toneurosurgery for surgical evaluation of her Arnold-Chiari malformation. I have discussed the planned course and the prognosis with her and her mom who was in the room and see her back one more time in 3 months.[facility] Work Phone: History of Present illness Peg Mahoney 26-year-old young lady who was seen today for follow-up of her Arnold-Chiari malformation with history of thoracic syringomyelia and intractable seizures. Since last seen she has been doing very well but had 1 or 2 minor seizure since adjusting her medication. Today her physical and neurological nonfocal and she was able to ambulate with the help of a walker. I have advised her to see her epileptologist in view of her intractable seizures since she has been tried on multiple medications in the past but would like to add Fycompa to Briviact. In the meantime I will refer her toneurosurgery for surgical evaluation of her Arnold-Chiari malformation. I have discussed the planned course and the prognosis with her and her mom who was in the room and see her back one more time in 3 months.[facility] Work Phone: History of Present illness [id number]-bfoe-tbw woman presents for evaluation of Chiari malformation and syringomyelia. Patient has a complex past medical history significant for diabetes, seizures, and irritable bowel syndrome. The patient reports that she has had worsening diffuse weakness, sensory loss in her arms and her legs, and bowel and bladder incontinence. She also has chronic daily headaches.TV-Cvykdfsgofie-CFMTK Work Phone: History of Present illness [id number]-vwzh-rny woman who underwent Chiari decompression returns for follow-up. The patient reports that her Chiari headaches have resolved though her migraines, which she clearly differentiates is different headaches, have worsened. She complains about headaches going from the top of her head to her eyes. They are often associated with photophobia and nausea. The patient reports that much of the numbness in her body is better and she is able to feel hot and cold again but she still has tingling inthe tips of her fingers and in her toes.UY-Uvaidnseycyg-Zcqfemq Work Phone: History of Present illness Narrative* Hien Quevedo 47-year-old young lady who was seen today for follow-up of Chiari I malformation s/p surgery with syringomyelia and history of partial complex seizure with secondary generalization. 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 She is asymptomatic and today she describes of some drainage from the right ear. Today her physical and neurological examination was unremarkable. Like to continue all her medication the way she is taking and have discussed the precautions to be taken and depending on how she does I might make future recommendation when she comes back to see me in 6 months. * I did review the medication list. HA-Ixyizfsls-Qwkomwnwt 201 Work Phone: Hospital course Narrative No data available for this section [facility] No data available for this section [facility] No data available for this section [facility] Outpatient Procedure (Routine) - Authorized Specialty Diagnoses / Procedures Referred By Emili t Referred To [facility] Diagnoses Aortoiliac occlusive disease (HCC) Procedures PVR LEG [facility]HEL [facility] NON-INVASIVE PHYSIOLOGIC STUDY EXTREMITY 3 Michael Marie MD [address] [place] [address] [facility] [place] [address] [place] [address] Referral ID Status Reason Start Date Expiration Date Visits Requested Visits Authorized [id number] Authorized Auto-Generat ed Referral 05/19/2022 05/19/2023 1 1 [facility] for referral (narrative)* Outpatient Procedure (Routine) - Authorized Specialty Diagnoses / Procedures Referred By Contac t Referred To [facility] Diagnoses Aortoiliac occlusive disease (HCC) Procedures PVR LEG RACHEL VAS LAB NON-INVASIVE PHYSIOLOGIC STUDY EXTREMITY 3 Jordan Oliva MD [address] [place] [address] [facility] [place] [address] [place] [address] Referral ID Status Reason Start Date Expiration Date Visits Requested Visits Authorized [id number] Authorized Auto-Generat ed Referral 3 09/05/2024 1 1 * MRI/CT (Routine) - Pending Review Specialty Diagnoses / Procedures Referred By Contac t Referred To Contact CT IMAGING Diagnoses Vasculopathy Procedures CTA ABD/PEL WO/W IVCON CT ANGIO ABD&PLVIS CNTRST MTRL W/WO CNTRST IMGES Jordan Law MD [address] [place] [address] Ct Imaging [place] [address] Referral ID Status Reason Start Date Expiration Date Visits Requested Visits Authorized [id number] Pending Review Auto-Generat ed Referral 3 10/05/2024 1 1 * MRI/CT (Routine) - Pending Review Specialty Diagnoses / Procedures Referred By Contac t Referred To Contact CT IMAGING Diagnoses Vasculopathy Procedures CTA CHEST (NONGATED) WO/W IVCON CT ANGIOGRAPHY CHEST W/CONTRAST/NONCONTRAST Jordan Law MD [address] [place] [id number] Ct Imaging [facility] Referral ID Status Reason Start Date Expiration Date Visits Requested Visits Authorized [id number] Pending Review Auto-Generat ed Referral 3 10/05/2024 1 1 [facility] for referral (narrative)* Outpatient Procedure (Routine) - Authorized Specialty Diagnoses / Procedures Referred By Emili t Referred To Contact HEART [facility] [place] Diagnoses Subclavian arterial stenosis (HCC) Procedures US CAROTID ARTERIES RACHEL [facility] DUPLEX SCAN EXTRACRANIAL ART COMPL BI STUDY Jordan Law MD [address] [facility] [place] [address] [facility] [place] [address] [place] [address] Referral ID Status Reason Start Date Expiration Date Visits Requested Visits Authorized [id number] Authorized Auto-Generat ed Referral 3 09/05/2024 1 1 [facility] for referral (narrative)* Consultation (Routine) - Authorized Specialty Diagnoses / Procedures Referred By Emili mejia Referred To Contact Endocrinology Diagnoses Diabetes mellitus type II, non insulin dependent (CMS/HCC) Multinodular goiter (nontoxic) Morbid obesity (CMS/HCC) Oliver Auguste PA-C [address] [facility] Department of [place] [address] [place] [address] [facility] Department of [place] [address] Referral ID Status Reason Start Date Expiration Date Visits Requested Visits Authorized [id number] Authorized Specialty Services Required 02/08/2024 02/07/2025 1 1 [facility] Work Phone: Reotai for visit Narrative* Neurology (Routine) - Pending Review Specialty Diagnoses / Procedures Referred By Emili mejia Referred To Contact Diagnoses Partial symptomatic epilepsy with complex partial seizures, intractable, without status epilepticus (Multi) Procedures EEG Gilda Leong MD [address] [facility], [place] [id number] Phone: tel: fax: Referral ID Status Reason Start Date Expiration Date V isits Requested Visits Authorized [id number] Pending Review 09/06/2024 09/06/2025 1 1 [facility] Work Phone: reason for visit Narrative* Imaging (Routine) - Pending Review Specialty Diagnoses / Procedures Referred By Contac t Referred To Contact Cardiology Diagnoses Cardiac pacemaker in situ Procedures Cardiac Device Check - Remote Geovany Ventura MD [address] [address] Phone: tel: fax: Referral ID Status Reason Start Date Expiration Date Visits Requested Visits Authorized [id number] Pending Review Perform Procedure 08/09/2024 08/09/2025 52 52 [facility] Work Phone: reason for visit Narrative* Imaging (Routine) - Pending Review Specialty Diagnoses / Procedures Referred By Contac t Referred To Contact Cardiology Diagnoses Cardiac pacemaker in situ Procedures Cardiac Device Check - In Clinic Geovany Ventura MD [address] [address] Phone: tel: fax: Referral ID Status Reason Start Date Expiration Date Visits Requested Visits Authorized [id number] Pending Review Perform Procedure 08/09/2024 08/09/2025 52 52 [facility] Work Phone: reason for visit Narrative* Cardiac Stress Testing (Routine) - Authorized Specialty Diagnoses / Procedures Referred By Contac t Referred To Contact Radiology Diagnoses Coronary artery disease involving [place] coronary artery of [place] heart, unspecified whether angina present Chest pain, unspecified type Procedures Nuclear Stress Test CHG MYOCARDIAL SPECT MULTIPLE STUDIES Ramiro Bhandari MD [address] [facility] Medical [facility], [address] [address] Phone: tel: fax: Referral ID Status Reason Start Date Expiration Date V isits Requested Visits Authorized [id number] Authorized 02/14/2025 02/14/2026 5 5 [facility] Work Phone: Rekmwb for visit Narrative* Cardiac Stress Testing (Routine) - Authorized Specialty Diagnoses / Procedures Referred By Milyac t Referred To Contact Radiology Diagnoses Coronary artery disease involving [place] coronary artery of [place] heart, unspecified whether angina present Chest pain, unspecified type Procedures Nuclear Stress Test CHG MYOCARDIAL SPECT MULTIPLE STUDIES Ramiro Bhanadri MD [address] [facility], [facility] [address] [place] [address] Phone: tel: fax: Referral ID Status Reason Start Date Expiration Date V isits Requested Visits Authorized [id number] Authorized 02/14/2025 02/14/2026 5 5 [facility] Work Phone: reason for visit Narrative* Imaging (Routine) - Authorized Specialty Diagnoses / Procedures Referred By Emili t Referred To Contact Cardiology Diagnoses Occlusion and stenosis of bilateral carotid arteries Procedures Vascular US Carotid Artery Duplex Bilateral Ramiro Bhandari MD [address] [facility], [address] [address] Phone: tel: fax: Referral ID Status Reason Start Date Expiration Date Visits Requested Visits Authorized [id number] Authorized Perform Procedure 03/28/2025 03/28/2026 1 1 [facility] Work Phone: Remmlu for visit Narrative* Imaging (Routine) - Authorized Specialty Diagnoses / Procedures Referred By Emili t Referred To Contact Radiology Diagnoses Seizures (Multi) Procedures MR brain wo IV contrast Gilda Leong MD [address] [facility], [place] [address] [place] [address] Phone: tel: fax: Referral ID Status Reason Start Date Expiration Date Visits Requested Visits Authorized [id number] Authorized Perform Procedure 03/29/2025 03/29/2026 1 1 [facility] Work Phone: reason for visit Narrative* Imaging (Routine) - Pending Review Specialty Diagnoses / Procedures Referred By Emili t Referred To Contact Cardiology Diagnoses Sinus node dysfunction (Multi) Cardiac pacemaker in situ Procedures Cardiac device check - Remote Geovany Ventura MD [address] [facility] [place] [address] [place] [address] Phone: tel: fax: Referral ID Status Reason Start Date Expiration Date Visits Requested Visits Authorized [id number] Pending Review Perform Procedure 02/28/2025 02/28/2026 1 1 [facility] Work Phone: Reqqts for visit Narrative* Imaging (Routine) - Authorized Specialty Diagnoses / Procedures Referred By Contac t Referred To Contact Cardiology Diagnoses Aortoiliac occlusive disease (Multi) Atherosclerosis of [place] artery of both lower extremities with intermittent claudication Intermittent claudication Procedures Vascular US ankle brachial index (ROXY) without exercise Vascular US ankle brachial index (ROXY) with exercise [place] [address] [facility] [address] [place] [address] Phone: tel: fax: Referral ID Status Reason Start Date Expiration Date Visits Requested Visits Authorized [id number] Authorized Perform Procedure 06/04/2025 06/04/2026 1 1 [facility] Work Phone: Rercpq for visit Narrative* Imaging (Routine) - Authorized Specialty Diagnoses / Procedures Referred By Contac t Referred To Contact Radiology Diagnoses Abnormal nuclear stress test Coronary artery disease involving [place] coronary artery of [place] heart, unspecified whether angina present Procedures CT angio coronary art with heartflow if score >30% Ramiro Bhandari MD [address] [facility], [address] [place] [address] Phone: tel: fax: Referral ID Status Reason Start Date Expiration Date Visits Requested Visits Authorized [id number] Authorized Perform Procedure 04/27/2025 04/27/2026 5 5 [facility] Work Phone: reason for visit Narrative* Imaging (Routine) - Authorized Specialty Diagnoses / Procedures Referred By Contac t Referred To Contact Radiology Diagnoses Aortoiliac occlusive disease (Multi) Right subclavian artery occlusion Procedures CT angio chest abdomen pelvis O'Martinez, Ramiro D, MD [address] [facility] [address], [address] [place] [address] Phone: tel: fax: Referral ID Status Reason Start Date Expiration Date Visits Requested Visits Authorized [id number] Authorized Perform Procedure 06/06/2025 06/06/2026 5 5 [facility] Work Phone: Summary Purpose Family History No Family History Records Found Mother Name Dates Details No pertinent family history( V49.89, Z78.9) Status:Active Father Name Dates Details No pertinent family history( V49.89, Z78.9) Status:Active Mother Name Dates Details No pertinent family history( V49.89, Z78.9) Status:Active Father Name Dates Details No pertinent family history( V49.89, Z78.9) Status:Active Mother Name Dates Details No pertinent family history( V49.89, Z78.9) Status:Active Father Name Dates Details No pertinent family history( V49.89, Z78.9) Status:Active Mother Name Dates Details No pertinent family history( V49.89, Z78.9) Status:Active Father Name Dates Details No pertinent family history( V49.89, Z78.9) Status:Active Mother Name Dates Details No pertinent family history( V49.89, Z78.9) Status:Active Father Name Dates Details No pertinent family history( V49.89, Z78.9) Status:Active Mother Name Dates Details No pertinent family history( V49.89, Z78.9) Status:Active Father Name Dates Details No pertinent family history( V49.89, Z78.9) Status:Active Mother Name Dates Details No pertinent family history( V49.89, Z78.9) Status:Active Father Name Dates Details No pertinent family history( V49.89, Z78.9) Status:Active Mother Name Dates Details No pertinent family history( V49.89, Z78.9) Status:Active Father Name Dates Details No pertinent family history( V49.89, Z78.9) Status:Active Mother Name Dates Details No pertinent family history( V49.89, Z78.9) Status:Active Father Name Dates Details No pertinent family history( V49.89, Z78.9) Status:Active Mother Name Dates Details No pertinent family history( V49.89, Z78.9) Status:Active Father Name Dates Details No pertinent family history( V49.89, Z78.9) Status:Active Mother Name Dates Details No pertinent family history( V49.89, Z78.9) Status:Active Father Name Dates Details No pertinent family history( V49.89, Z78.9) Status:Active Mother Name Dates Details No pertinent family history( V49.89, Z78.9) Status:Active Father Name Dates Details No pertinent family history( V49.89, Z78.9) Status:Active Mother Name Dates Details No pertinent family history( V49.89, Z78.9) Status:Active Father Name Dates Details No pertinent family history( V49.89, Z78.9) Status:Active Unknown Family Member Name Dates Details No pertinent family history: Mother, Father(V49.89, Z78.9) Status:Active Unknown Family Member Name Dates Details No pertinent family history: Mother, Father(V49.89, Z78.9) Status:Active Unknown Family Member Name Dates Details No pertinent family history: Mother, Father(V49.89, Z78.9) Status:Active Unknown Family Member Name Dates Details No pertinent family history: Mother, Father(V49.89, Z78.9) Status:Active Unknown Family Member Name Dates Details No pertinent family history: Mother, Father(V49.89, Z78.9) Status:Active Unknown Family Member Name Dates Details No pertinent family history: Mother, Father(V49.89, Z78.9) Status:Active Unknown Family Member Name Dates Details No pertinent family history: Mother, Father(V49.89, Z78.9) Status:Active Unknown Family Member Name Dates Details No pertinent family history: Mother, Father(V49.89, Z78.9) Status:Active Unknown Family Member Name Dates Details No pertinent family history: Mother, Father(V49.89, Z78.9) Status:Active Unknown Family Member Name Dates Details No pertinent family history: Mother, Father(V49.89, Z78.9) Status:Active Unknown Family Member Name Dates Details No pertinent family history: Mother, Father(V49.89, Z78.9) Status:Active Unknown Family Member Name Dates Details No pertinent family history: Mother, Father(V49.89, Z78.9) Status:Active Unknown Family Member Name Dates Details No pertinent family history: Mother, Father(V49.89, Z78.9) Status:Active Unknown Family Member Name Dates Details No pertinent family history: Mother, Father(V49.89, Z78.9) Status:Active Unknown Family Member Name Dates Details No pertinent family history: Mother, Father(V49.89, Z78.9) Status:Active Unknown Family Member Name Dates Details No pertinent family history: Mother, Father(V49.89, Z78.9) Status:Active Unknown Family Member Name Dates Details No pertinent family history: Mother, Father(V49.89, Z78.9) Status:Active Unknown Family Member Name Dates Details No pertinent family history: Mother, Father(V49.89, Z78.9) Status:Active Unknown Family Member Name Dates Details No pertinent family history: Mother, Father(V49.89, Z78.9) Status:Active Unknown Family Member Name Dates Details No pertinent family history: Mother, Father(V49.89, Z78.9) Status:Active Unknown Family Member Name Dates Details No pertinent family history: Mother, Father(V49.89, Z78.9) Status:Active Unknown Family Member Name Dates Details No pertinent family history: Mother, Father(V49.89, Z78.9) Status:Active Unknown Family Member Name Dates Details No pertinent family history: Mother, Father(V49.89, Z78.9) Status:Active Unknown Family Member Name Dates Details No pertinent family history: Mother, Father(V49.89, Z78.9) Status:Active Unknown Family Member Name Dates Details No pertinent family history: Mother, Father(V49.89, Z78.9) Status:Active Unknown Family Member Name Dates Details No pertinent family history: Mother, Father(V49.89, Z78.9) Status:Active Unknown Family Member Name Dates Details No pertinent family history: Mother, Father(V49.89, Z78.9) Status:Active Unknown Family Member Name Dates Details No pertinent family history: Mother, Father(V49.89, Z78.9) Status:Active Unknown Family Member Name Dates Details No pertinent family history: Mother, Father(V49.89, Z78.9) Status:Active Unknown Family Member Name Dates Details No pertinent family history: Mother, Father(V49.89, Z78.9) Status:Active Unknown Family Member Name Dates Details No pertinent family history: Mother, Father(V49.89, Z78.9) Status:Active Unknown Family Member Name Dates Details No pertinent family history: Mother, Father(V49.89, Z78.9) Status:Active Unknown Family Member Name Dates Details No pertinent family history: Mother, Father(V49.89, Z78.9) Status:Active Unknown Family Member Name Dates Details No pertinent family history: Mother, Father(V49.89, Z78.9) Status:Active Unknown Family Member Name Dates Details No pertinent family history: Mother, Father(V49.89, Z78.9) Status:Active Unknown Family Member Name Dates Details No pertinent family history: Mother, Father(V49.89, Z78.9) Status:Active Unknown Family Member Name Dates Details No pertinent family history: Mother, Father(V49.89, Z78.9) Status:Active Unknown Family Member Name Dates Details No pertinent family history: Mother, Father(V49.89, Z78.9) Status:Active Unknown Family Member Name Dates Details No pertinent family history: Mother, Father(V49.89, Z78.9) Status:Active Advance Directives No Advanced Directives Records FoundDocuments on File Type Date Recorded Patient Straightener Expl inocencio Living Will 08/27/2023 10:54 AM Date Activated Date Inactivated Comments 12/10/2023 5:42 AM Question Answer Comments Plan of Care: Code Status Discussion Completed Decision Maker: Patient Documents on File Type Date Recorded Patient Straightener Expl anation Advance Directive(s) 02/12/2020 7:06 AM Advance Directive(s) 11/17/2018 9:59 PM Advance Directive(s) 10/20/2018 9:41 AM Documents on File Type Date Recorded Patient Straightener Expl anation Advance Directive(s) 02/12/2020 7:06 AM Advance Directive(s) 11/17/2018 9:59 PM Advance Directive(s) 10/20/2018 9:41 AM Documents on File Type Date Recorded Patient Straightener Expl sachiion Living Will 08/27/2023 10:54 AM Latest Code Status on File Code Status Date Activated Date Inactivated Comments Full Code 12/10/2023 5:42 AM Question Answer Comments Plan of Care: Code Status Discussion Completed Decision Maker: Patient Latest Code Status on File Code Status Date Activated Date Inactivated Comments Full Code 12/10/2023 5:42 AM Question Answer Comments Plan of Care: Code Status Discussion Completed Decision Maker: Patient Latest Code Status on File Code Status Date Activated Date Inactivated Comments Full Code 12/10/2023 5:42 AM Question Answer Comments Plan of Care: Code Status Discussion Completed Decision Maker: Patient Date Activated Date Inactivated Comments 12/10/2023 5:42 AM Question Answer Comments Plan of Care: Code Status Discussion Completed Decision Maker: Patient Chief Complaint f/u DM2 and hypercortisolismf/u DM2 and hypercortisolismf/u DM2 and hypercortisolism. wants to reduce number of medicationsf/u DM2 and hypercortisolism. wants to reduce number of medications* Patient is being seen for a follow-up Neurosurgical visit. * 12-04-2021 Chiari decompression. Having migraines since middle of December. Saw PCP started on Flexeril and Topiramate. Having headaches every day. Incision is with out redness, drainage or swelling. * A telephone visit (audio only) between the patient (at the originating site) and the provider (at the distant site) was utilized to provide this telehealth service. * Verbal consent was requested and obtained from HIEN LAM on this date, 05/12/2022 01:40 PM , for a telehealth visit. * f/u DM2 New patient referred by Dr. Hunter for possible loop recorder Reason for Referral Specialty Diagnoses / Procedures Referred By Emili mejia Referred To Contact Cardiology Diagnoses Pacemaker Procedures Cardiac Device Check - In Clinic Analia Gray APRN-IT SYSTEMS ANALYST [address] [facility], [address] [address] Referral ID Status Reason Start Date Expiration Date Visits Requested Visits Authorized [id number] Pending Review Perform Procedure 05/02/2024 05/02/2025 1 1 Specialty Diagnoses / Procedures Referred By Emili mejia Referred To Contact Radiology Diagnoses Pacemaker Procedures XR chest 2 views Analia Gray APRN-IT SYSTEMS ANALYST [address] [facility], [address] [address] Referral ID Status Reason Start Date Expiration Date Visits Requested Visits Authorized [id number] Authorized Perform Procedure 05/02/2024 05/02/2025 1 1 Specialty Diagnoses / Procedures Referred By Contac t Referred To Contact Cardiology Diagnoses Cardiac pacemaker in situ Procedures Cardiac Device Check - Remote Geovany Ventura MD [address] [place] [id number] Referral ID Status Reason Start Date Expiration Date Visits Requested Visits Authorized [id number] Pending Review Perform Procedure 08/09/2024 08/09/2025 52 52 Specialty Diagnoses / Procedures Referred By Contac t Referred To Contact Cardiology Diagnoses Cardiac pacemaker in situ Procedures Cardiac Device Check - In Clinic Geovany Ventura MD [address] [place] [address] Referral ID Status Reason Start Date Expiration Date Visits Requested Visits Authorized [id number] Pending Review Perform Procedure 08/09/2024 08/09/2025 52 52 Specialty Diagnoses / Procedures Referred By Contac t Referred To Contact Diagnoses Cardiac pacemaker in situ Sinus node dysfunction (Multi) Procedures ECG 12 lead (Clinic Performed) Geovany Ventura MD [address] [place] [address] Referral ID Status Reason Start Date Expiration Date V isits Requested Visits Authorized [id number] Authorized 08/09/2024 08/09/2025 1 1 Specialty Diagnoses / Procedures Referred By Contac t Referred To Contact Cardiology Diagnoses Wide-complex tachycardia Sinus node dysfunction (Multi) Sick sinus syndrome (Multi) Bradycardia Dizziness Procedures Transthoracic Echo Complete DC ECHO TTHRC R-T 2D W/WOM-MODE COMPL SPEC&COLR D Geovany Ventura MD [address] [place] [address] Referral ID Status Reason Start Date Expiration Date Visits Requested Visits Authorized [id number] Pending Review Perform Procedure 04/19/2024 04/19/2025 1 1 Specialty Diagnoses / Procedures Referred By Contac t Referred To Contact Diagnoses Pacemaker reprogramming/check Procedures ECG 12 lead (Clinic Performed) Geovany Ventura MD [address] [facility] [address] [place] [address] Referral ID Status Reason Start Date Expiration Date V isits Requested Visits Authorized [id number] Authorized 04/19/2024 04/19/2025 1 1 Specialty Diagnoses / Procedures Referred By Contac t Referred To Contact Cardiology Diagnoses Presence of other cardiac implants and grafts Palpitations Procedures Cardiac Device Check - Remote Geovany Ventura MD [address] [facility] [address] [place] [address] Referral ID Status Reason Start Date Expiration Date Visits Requested Visits Authorized [id number] Pending Review Perform Procedure 12/10/2023 12/09/2024 1 1 Specialty Diagnoses / Procedures Referred By Contac t Referred To Contact Radiology Diagnoses Abnormal findings on diagnostic imaging of heart and coronary circulation Procedures CT heartflow analysis Ramiro Bhandari MD [address] [address] Referral ID Status Reason Start Date Expiration Date Visits Requested Visits Authorized [id number] Authorized Perform Procedure 01/14/2024 01/13/2025 1 1 Specialty Diagnoses / Procedures Referred By Contac t Referred To Contact Cardiology Diagnoses HTN (hypertension), benign Hypercholesterolemia Hyperlipidemia LDL goal <100 Bruit of right carotid artery Procedures Vascular US carotid artery duplex bilateral Ramiro Bhandari MD [address] [address] Referral ID Status Reason Start Date Expiration Date Visits Requested Visits Authorized [id number] Pending Review Perform Procedure 12/15/2023 12/14/2024 1 1 Specialty Diagnoses / Procedures Referred By Contac t Referred To Contact Radiology Diagnoses Chest pain, unspecified type Shortness of breath HTN (hypertension), benign Hyperlipidemia LDL goal <[address] angio coronary art with heartflow if score >30% Ramiro Bhandari MD 125 [facility], [address] [address] Referral ID Status Reason Start Date Expiration Date Visits Requested Visits Authorized [id number] Pending Review Perform Procedure 12/15/2023 12/14/2024 1 1 Specialty Diagnoses / Procedures Referred By Contac t Referred To Contact Cardiology Diagnoses Irregular menses Procedures Cardiac Device Check - In Clinic Analia Gray Jerod, SECURITY ALARM TECHNICIAN-IT SYSTEMS ANALYST [address] [facility], [address] [address] Referral ID Status Reason Start Date Expiration Date Visits Requested Visits Authorized [id number] Pending Review Perform Procedure 12/10/2023 12/09/2024 1 1 Specialty Diagnoses / Procedures Referred By Contac t Referred To Contact Diagnoses Wide-complex tachycardia Procedures ECG 12 Lead Geovany Ventura MD [address] [facility], [address] [address] Referral ID Status Reason Start Date Expiration Date V isits Requested Visits Authorized [id number] Authorized 11/24/2023 11/23/2024 1 1 Specialty Diagnoses / Procedures Referred By Contac t Referred To Contact Diagnoses Primary osteoarthritis of both knees Procedures [place] [address] [facility] [place] [address] Referral ID Status Reason Start Date Expiration Date V isits Requested Visits Authorized [id number] Pending Review 11/25/2023 11/24/2024 1 1 Specialty Diagnoses / Procedures Referred By Contac t Referred To Contact Orthopaedic Surgery / Orthopedic Surgery Diagnoses Primary osteoarthritis of both knees Procedures L Inj/Asp: [place] [address] [facility] [place] [address] Referral ID Status Reason Start Date Expiration Date V isits Requested Visits Authorized Pending Review 11/25/2023 11/24/2024 1 1 Specialty Diagnoses / Procedures Referred By Contac t Referred To Contact CT IMAGING Diagnoses Vasculopathy Procedures CTA ABD/PEL WO/W IVCON CT ANGIO ABD&PLVIS CNTRST MTRL W/WO CNTRST Vickey Hermosillo MD [address] [place] [address] Ct Imaging Referral ID Status Reason Start Date Expiration Date Visits Requested Visits Authorized [id number] Additional Clinical Info Needed Auto-Generat ed Referral 06/18/2022 07/18/2023 1 1 Specialty Diagnoses / Procedures Referred By Contac t Referred To Contact CT IMAGING Diagnoses Vasculopathy Procedures CTA CHEST (NONGATED) WO/W IVCON CT ANGIOGRAPHY CHEST W/CONTRAST/NONCONTRAST Vickey Hicks MD [address] [place] [address] Ct Imaging Referral ID Status Reason Start Date Expiration Date Visits Requested Visits Authorized [id number] Additional Clinical Info Needed Auto-Generat ed Referral 06/18/2022 07/18/2023 1 1 Additional Source Comments INFORMATION SOURCE (unrecogn ized section and content) DATE CREATED AUTHOR 05/03/2018 [facility] DATE CREATED AUTHOR AUTHOR'S ORGANIZ ATION 07/17/2018 [facility] DATE CREATED AUTHOR AUTHOR'S ORGANIZ ATION 09/27/2018 [facility] DATE CREATED AUTHOR AUTHOR'S ORGANIZ ATION 01/30/2020 [facility] DATE CREATED AUTHOR AUTHOR'S ORGANIZ ATION 02/13/2020 [facility] DATE CREATED AUTHOR AUTHOR'S ORGANIZ ATION 07/01/2021 [facility] DATE CREATED AUTHOR AUTHOR'S ORGANIZ ATION 07/16/2022 [facility] DATE CREATED AUTHOR AUTHOR'S ORGANIZ ATION 08/31/2022 [facility] DATE CREATED AUTHOR AUTHOR'S ORGANIZ ATION 09/25/2022 [facility] DATE CREATED AUTHOR AUTHOR'S ORGANIZ ATION 04/28/2023 [employer] DATE CREATED AUTHOR AUTHOR'S ORGANIZ ATION 04/28/2023 [facility] DATE CREATED AUTHOR AUTHOR'S ORGANIZ ATION 10/14/2023 [facility] DATE CREATED AUTHOR AUTHOR'S ORGANIZ ATION 05/04/2024 [facility] DATE CREATED AUTHOR AUTHOR'S ORGANIZ ATION 05/05/2024 [facility] DATE CREATED AUTHOR AUTHOR'S ORGANIZ ATION 05/12/[address] [facility] DATE CREATED AUTHOR AUTHOR'S ORGANIZ ATION 05/23/2024 [facility] DATE CREATED AUTHOR AUTHOR'S ORGANIZ ATION 08/10/2024 [facility] DATE CREATED AUTHOR AUTHOR'S ORGANIZ ATION 11/17/[address] [facility] DATE CREATED AUTHOR AUTHOR'S ORGANIZ ATION 11/18/[address] [facility] [facility] DATE CREATED AUTHOR AUTHOR'S ORGANIZ ATION 01/11/[address] [facility] DATE CREATED AUTHOR AUTHOR'S ORGANIZ ATION 02/03/[address] [facility] DATE CREATED AUTHOR AUTHOR'S ORGANIZ ATION 02/20/2025 [facility] DATE CREATED AUTHOR AUTHOR'S ORGANIZ ATION 02/22/2025 [facility] DATE CREATED AUTHOR AUTHOR'S ORGANIZ ATION 07/20/2025 [facility] DATE CREATED AUTHOR AUTHOR'S ORGANIZ ATION 07/24/2025 [facility] DATE CREATED AUTHOR AUTHOR'S ORGANIZ ATION 07/26/2025 [facility] DATE CREATED AUTHOR AUTHOR'S ORGANIZ ATION 08/12/2025 [facility] DATE CREATED AUTHOR AUTHOR'S ORGANIZ ATION 08/13/2025 [facility] DATE CREATED AUTHOR AUTHOR'S ORGANIZ ATION 08/14/2025 [facility] <item> Privacy Markings (unrecogniz ed section and content) Section Author: Lindsey Devlin PROHIBITION ON REDISCLOSURE OF CONFIDENTIAL INFORMATION This notice accompanies a disclosure of information concerning a client made to you with the consent of such client. REASON FOR VISIT (unrecogniz ed section and content) Reason Comments Patient Question Reason Comments Appointment Reason Comments Radiology CT Specialty Diagnoses / Procedures Referred By Contac t Referred To Contact CT IMAGING Diagnoses Vasculopathy Procedures CTA ABD/PEL WO/W IVCON CT ANGIO ABD&PLVIS CNTRST MTRL W/WO CNTRST Vickey Hermosillo MD [address] [place] [address] Ct Imaging Referral ID Status Reason Start Date Expiration Date V isits Requested Visits Authorized [id number] Closed Auto-Generate d Referral 06/22/2022 08/21/2022 1 1 Reason Comments Established Patient Reason Comments Chest symptoms/complaints Reason Comments Follow-up Reason Comments Earache Patient is here for right ear pain. Reason Comments Ear Problem Patient is here for 3 week recheck of ear. Specialty Diagnoses / Procedures Referred By Contac t Referred To Contact Diagnoses Wide-complex tachycardia Procedures ECG 12 Lead Geovany Ventura MD [address] [address] Referral ID Status Reason Start Date Expiration Date V isits Requested Visits Authorized [id number] Authorized 11/24/2023 11/23/2024 1 1 Specialty Diagnoses / Procedures Referred By Contac t Referred To Contact Diagnoses Syncope and collapse Wide-complex tachycardia Palpitations Night sweats Syncope and collapse [R55] Wide-complex tachycardia [R00.0] Palpitations [R00.2] Night sweats [R61] Procedures DC INSERTION SUBQ CARDIAC RHYTHM MONITOR W/PRGRMG Loop Insertion Geovany Ventura MD [address] [address] [address] [place] [address] Referral ID Status Reason Start Date Expiration Date Visits Re quested Visits Authorized [id number] 1 1 Reason Comments Follow-up Loop recorder insert ed 12/10/2023 Specialty Diagnoses / Procedures Referred By Contac t Referred To Contact Cardiology Diagnoses HTN (hypertension), benign Hypercholesterolemia Hyperlipidemia LDL goal <100 Bruit of right carotid artery Procedures Vascular US carotid artery duplex bilateral Ramiro Bhandari MD [address] [facility], [address] [address] Referral ID Status Reason Start Date Expiration Date Visits Requested Visits Authorized [id number] Authorized Perform Procedure 12/15/2023 12/14/2024 1 1 Specialty Diagnoses / Procedures Referred By Contac t Referred To Contact CT IMAGING Diagnoses Vasculopathy Procedures CTA ABD/PEL WO/W IVCON CT ANGIO ABD&PLVIS CNTRST MTRL W/WO CNTRST Jordan Reyna MD [address] [place] [address] [place] [address] Referral ID Status Reason Start Date Expiration Date V isits Requested Visits Authorized [id number] Closed Auto-Generate d Referral 12/31/2023 02/29/2024 1 1 Specialty Diagnoses / Procedures Referred By Contac t Referred To Contact Radiology Diagnoses Chest pain, unspecified type Shortness of breath HTN (hypertension), benign Hyperlipidemia LDL goal <[address] angio coronary art with heartflow if score >30% Ramiro Bhandari MD [address] [address] Referral ID Status Reason Start Date Expiration Date Visits Requested Visits Authorized [id number] Authorized Perform Procedure 12/15/2023 12/14/2024 1 1 Specialty Diagnoses / Procedures Referred By Contac t Referred To Contact Radiology Diagnoses Abnormal findings on diagnostic imaging of heart and coronary circulation Procedures CT heartflow analysis Ramiro Bhandari MD [address] [facility], [address] [address] Referral ID Status Reason Start Date Expiration Date Visits Requested Visits Authorized [id number] Authorized Perform Procedure 01/14/2024 01/13/2025 1 1 Specialty Diagnoses / Procedures Referred By Contac t Referred To Contact Cardiology Diagnoses Presence of other cardiac implants and grafts Palpitations Procedures Cardiac Device Check - Remote Geovany Ventura MD [address] [address] Referral ID Status Reason Start Date Expiration Date Visits Requested Visits Authorized [id number] Pending Review Perform Procedure 12/10/2023 12/09/2024 1 1 Reason Comments Follow-up Pt is here today fol lowing up with results to review Reason Comments Seizures 1 yr FU. Specialty Diagnoses / Procedures Referred By Contac t Referred To Contact Cardiology Diagnoses Presence of other cardiac implants and grafts Palpitations Procedures Cardiac Device Check - Remote Geovany Ventura MD [address] [address] Reason Comments Follow-up Pt is here today fol lowing up with PMC Specialty Diagnoses / Procedures Referred By Contac t Referred To Contact Cardiology Diagnoses Irregular menses Procedures Cardiac Device Check - In Clinic Analia Gray, SECURITY ALARM TECHNICIAN-IT SYSTEMS ANALYST [address] [address] Referral ID Status Reason Start Date Expiration Date Visits Requested Visits Authorized [id number] Pending Review Perform Procedure 12/10/2023 12/09/2024 1 1 Reason Comments Follow-up Pt is here today fol lowing up after 6 months with device check Specialty Diagnoses / Procedures Referred By Contac t Referred To Contact Diagnoses Cardiac pacemaker in situ Sinus node dysfunction (Multi) Procedures ECG 12 lead (Clinic Performed) Geovany Ventura MD [address] [address] Referral ID Status Reason Start Date Expiration Date V isits Requested Visits Authorized [id number] Authorized 08/09/2024 08/09/2025 1 1 Specialty Diagnoses / Procedures Referred By Contac t Referred To Contact Radiology Diagnoses Pacemaker Procedures XR chest 2 views Analia Gray, SECURITY ALARM TECHNICIAN-IT SYSTEMS ANALYST [address] [facility], [address] [address] Referral ID Status Reason Start Date Expiration Date Visits Requested Visits Authorized [id number] Authorized Perform Procedure 05/02/2024 05/02/2025 1 1 Specialty Diagnoses / Procedures Referred By Contac t Referred To Contact Cardiology Diagnoses Pacemaker Procedures Cardiac Device Check - In Clinic Analia Gray, SECURITY ALARM TECHNICIAN-IT SYSTEMS ANALYST [address] [facility] Medical Office [facility], [address] [place] [address] Referral ID Status Reason Start Date Expiration Date Visits Requested Visits Authorized [id number] Pending Review Perform Procedure 05/02/2024 05/02/2025 1 1 Reason Comments Ear Problem Patient is here for an ear problem. Specialty Diagnoses / Procedures Referred By Emili t Referred To Contact Diagnoses Sinus node dysfunction (Multi) Sick sinus syndrome (Multi) Bradycardia Dizziness Sinus node dysfunction (Multi) [I49.5] Sick sinus syndrome (Multi) [I49.5] Bradycardia [R00.1] Dizziness [R42] Procedures DC REMOVAL SUBCUTANEOUS CARDIAC RHYTHM MONITOR DC INS NEW/RPLCMT PRM PM W/TRANSV ELTRD ATRIAL&VENT Loop Recorder Explant PPM IMPLANT DUAL Geovany Ventura MD [address] [facility] [address] [place] [address] Aletha Cvepinv [address] [place] [address] Referral ID Status Reason Start Date Expiration Date Visits Re quested Visits Authorized [id number] 1 1 Reason Comments Ear Tube Check Patient is here for a 6 month recheck of ear tube. Reason Comments Diabetes Specialty Diagnoses / Procedures Referred By Emili mejia Referred To Contact Endocrinology Diagnoses Diabetes mellitus type II, non insulin dependent (Multi) Multinodular goiter (nontoxic) Morbid obesity (Multi) Oliver Auguste PA-C [id number] [facility] Department of [place] [address] [place] [address] [facility] Department of [place] [address] Referral ID Status Reason Start Date Expiration Date Visits Requested Visits Authorized [id number] Pending Review Specialty Services Required 02/08/2024 02/07/2025 1 1 Reason Comments Seizures Reason Comments Diabetes Reason Comments Follow-up 1 year visit. CAD, N SVT, patient reports hypotension Reason Comments Follow-up 6 month with device check Reason Comments Pain Reason Comments Follow-up Follow up on coronar y artery disease and chest pain Hospital Follow-up [facility] Emergency department for chest pain and bilateral arm numbness Reason Comments Follow-up Neck Pain With radiation to ar ms. Reason Comments Diabetes Follow-up Reason Comments Follow-up Reason Comments New Patient Visit Patient is present t o establish care . Patient was referred by for Right subclavian artery occlusion and PAD. Specialty Diagnoses / Procedures Referred By Emili t Referred To Contact Diagnoses Right subclavian artery occlusion PAD (peripheral artery disease) Ramiro Bhandari MD [address] [facility], [address] [address] Phone: tel: fax: Kaley Dale MD [address] [facility], [address] [address] Phone: tel: fax: Referral ID Status Reason Start Date Expiration Date Visits Requested Visits Authorized [id number] Authorized Specialty Services Required 03/28/2025 03/28/2026 1 1 Reason Comments Seizures 6 month follow up. Med Refill Source Comments (unrecognize d section and content) In the event this informatio n is protected by the Federal Confidentiality of Alcohol and Drug Abuse Patient Records regulations: The Federal rules restrict any use of the information to criminally investigate or prosecute any alcohol or drug abuse patient.[facility] the event this information is protected by the Federal Confidentiality of Alcohol and Drug Abuse Patient Records regulations: The Federal rules restrict any use of the information to criminally investigate or prosecute any alcohol or drug abuse patient.[facility] the event this information is protected by the Federal Confidentiality of Alcohol and Drug Abuse Patient Records regulations: The Federal rules restrict any use of the information to criminally investigate or prosecute any alcohol or drug abuse patient.[facility] Hospital[facility] the event this information is protected by the Federal Confidentiality of Alcohol and Drug Abuse Patient Records regulations: The Federal rules restrict any use of the information to criminally investigate or prosecute any alcohol or drug abuse patient.[facility] Hospital[facility] the event this information is protected by the Federal Confidentiality of Alcohol and Drug Abuse Patient Records regulations: The Federal rules restrict any use of the information to criminally investigate or prosecute any alcohol or drug abuse patient.[facility] Hospital[facility] the event this information is protected by the Federal Confidentiality of Alcohol and Drug Abuse Patient Records regulations: The Federal rules restrict any use of the information to criminally investigate or prosecute any alcohol or drug abuse patient.[facility] Hospital[facility] the event this information is protected by the Federal Confidentiality of Alcohol and Drug Abuse Patient Records regulations: The Federal rules restrict any use of the information to criminally investigate or prosecute any alcohol or drug abuse patient.[facility] Hospital[facility] the event this information is protected by the Federal Confidentiality of Alcohol and Drug Abuse Patient Records regulations: The Federal rules restrict any use of the information to criminally investigate or prosecute any alcohol or drug abuse patient.[facility] HospitalIn the event this information is protected by the Federal Confidentiality of Alcohol and Drug Abuse Patient Records regulations: The Federal rules restrict any use of the information to criminally investigate or prosecute any alcohol or drug abuse patient.[facility] HospitalIn the event this information is protected by the Federal Confidentiality of Alcohol and Drug Abuse Patient Records regulations: The Federal rules restrict any use of the information to criminally investigate or prosecute any alcohol or drug abuse patient.[facility] Hospital[facility] the event this information is protected by the Federal Confidentiality of Alcohol and Drug Abuse Patient Records regulations: The Federal rules restrict any use of the information to criminally investigate or prosecute any alcohol or drug abuse patient.[facility] HospitalIn the event this information is protected by the Federal Confidentiality of Alcohol and Drug Abuse Patient Records regulations: The Federal rules restrict any use of the information to criminally investigate or prosecute any alcohol or drug abuse patient.[facility] Care Teams (unrecognized sec tion and content) Oracle Drm Consultant Relationship Specialty Start Date End Date Mindy Morgan [address] [place] [address] PCP - General Family Practice 11/15/18 Brianna Kamara Internal Medicine 02/09/20 Oracle Drm Consultant Relationship Specialty Start Date End Date Mindy Morgan [address] [place] [address] PCP - General Family Practice 11/15/18 Brianna Kamara Internal Medicine 02/09/20 Oracle Drm Consultant Relationship Specialty Start Date End Date Mindy Morgan [address] [place] [address] PCP - General Family Practice 11/15/18 Brianna Kamara Internal Medicine 02/09/20 Oracle Drm Consultant Relationship Specialty Start Date End Date Mindy Morgan [address] [place] [address] PCP - General Family Practice 11/15/18 Brianna Kamara Internal Medicine 02/09/20 Oracle Drm Consultant Relationship Specialty Start Date End Date Mindy Morgan [address] [place] [address] PCP - General Family Practice 11/15/18 Brianna Kamara Internal Medicine 02/09/20 Oracle Drm Consultant Relationship Specialty Start Date End Date Mindy Morgan [address] [place] [address] PCP - General Family Practice 11/15/18 Brianna Kamara Internal Medicine 02/09/20 Oracle Drm Consultant Relationship Specialty Start Date End Date Mindy Morgan MD [address] [place] [address] PCP - General Family Medicine 11/15/18 Brianna Kamara DO [address] [place] [address] Internal Medicine 02/09/20 Oracle Drm Consultant Relationship Specialty Start Date End Date Mindy Morgan MD [address] [place] [address] PCP - General Family Medicine 11/15/18 Brianna Kamara DO [address] [place] [address] Internal Medicine 02/09/20 Oracle Drm Consultant Relationship Specialty Start Date End Date Mindy Morgan MD [address] [place] [address] PCP - General Family Medicine 11/15/18 Brianna Kamara DO [address] [place] [address] Internal Medicine 02/09/20 Oracle Drm Consultant Relationship Specialty Start Date End Date Mindy Morgan MD [address] [address] PCP - General 03/19/22 Oracle Drm Consultant Relationship Specialty Start Date End Date Mindy Morgan MD [address] [address] PCP - General 03/19/22 Oracle Drm Consultant Relationship Specialty Start Date End Date Mindy Morgan MD [address] [address] PCP - General 03/19/22 Oracle Drm Consultant Relationship Specialty Start Date End Date Mindy Morgan MD [address] [address] PCP - General 03/19/22 Oracle Drm Consultant Relationship Specialty Start Date End Date Mindy Morgan MD [address] [place] [id number] PCP - General 03/19/22 Oracle Drm Consultant Relationship Specialty Start Date End Date Mindy Morgan MD [address] [place] [id number] PCP - General 03/19/22 Oracle Drm Consultant Relationship Specialty Start Date End Date Mindy Morgan MD [address] [place] [id number] PCP - General 03/19/22 Oracle Drm Consultant Relationship Specialty Start Date End Date Mindy Morgan MD [address] [place] [id number] PCP - General 03/19/22 Oracle Drm Consultant Relationship Specialty Start Date End Date Mindy Morgan MD [address] [address] PCP - General Family Medicine 12/10/23 Oracle Drm Consultant Relationship Specialty Start Date End Date Mindy Morgan MD [address] [place] [id number] PCP - General Family Medicine 12/10/23 Ramiro Bhandari MD [address] [facility], [address] [place] [address] Welt Insole Channeler Cardiology 12/13/23 Oracle Drm Consultant Relationship Specialty Start Date End Date Mindy Morgan MD [address] [address] PCP - General Family Medicine 12/10/23 Ramiro Bhandari MD [address] [facility], [address] [place] [address] [employer] In[employer] Channeler Cardiology 12/13/23 Oracle Drm Consultant Relationship Specialty Start Date End Date Mindy Morgan MD [address] [place] [address] PCP - General Family Medicine 11/15/18 Brianna Kamara DO [address] [place] [address] Internal Medicine 02/09/20 Oracle Drm Consultant Relationship Specialty Start Date End Date Mindy Morgan MD [address] [address] PCP - General Family Medicine 12/10/23 Ramiro Bhandari MD [address] [facility], [address] [place] [address] [employer] Channeler Cardiology 12/13/23 Oracle Drm Consultant Relationship Specialty Start Date End Date Mindy Morgan MD [address] [address] PCP - General Family Medicine 12/10/23 Ramiro Bhandari MD [address] [facility], [address] [place] [address] [employer] In[employer] Channeler Cardiology 12/13/23 Oracle Drm Consultant Relationship Specialty Start Date End Date Mindy Morgan MD [address] [address] PCP - General Family Medicine 12/10/23 Ramiro Bhandari MD [address] [facility], [address] [place] [address] [employer] In[employer] Channeler Cardiology 12/13/23 Oracle Drm Consultant Relationship Specialty Start Date End Date Mindy Morgan MD [address] [address] PCP - General Family Medicine 12/10/23 Ramiro Bhandari MD [address] [facility], [address] [place] [address] [employer] In[employer] Channeler Cardiology 12/13/23 Oracle Drm Consultant Relationship Specialty Start Date End Date Mindy Morgan MD [address] [place] [address] PCP - General Family Medicine 12/10/23 Ramiro Bhandari MD [address] [facility], [address] [address] Welt Insole Channeler Cardiology 12/13/23 Oracle Drm Consultant Relationship Specialty Start Date End Date Mindy Morgan MD [address] [address] PCP - General Family Medicine 12/10/23 Oliver Auguste PA-C [id number] [facility] Department of [place] [address] PCP - Anurag ACO PCP 12/09/23 Ramiro Bhandari MD [address] [facility], [address] [address] [employer] Channeler Cardiology 12/13/23 Oracle Drm Consultant Relationship Specialty Start Date End Date Mindy Morgan MD [address] [address] PCP - General Family Medicine 12/10/23 Oliver Auguste PA-C [address] [facility] Department of [place] [address] PCP - Anurag ACO PCP 12/09/23 Ramiro Bhandari MD [address] [facility], [address] [address] [employer] Channel[employer] Cardiology 12/13/23 Gilda Leong MD [address] [facility], [address] [place] [address] Consulting Physician Neurology 03/15/24 Oracle Drm Consultant Relationship Specialty Start Date End Date Mindy Morgan MD [address] [address] PCP - General Family Medicine 12/10/23 Oliver Auguste PA-C [address] [facility] Department of [place] [address] PCP - Anurag ACO PCP 12/09/23 Ramiro Bhandari MD [address] [facility], [address] [place] [address] [employer] Channeler Cardiology 12/13/23 Gilda Leong MD [address] [facility], [address] [place] [address] Consulting Physician Neurology 03/15/24 Oracle Drm Consultant Relationship Specialty Start Date End Date Mindy Morgan MD [address] [address] PCP - General Family Medicine 12/10/23 Oliver Auguste PA-C [address] [facility] [place] [address] PCP - Anurag NOELO PCP 12/09/23 Ramiro Bhandari MD [address] [facility], [address] [place] [address] [employer] Channeler Cardiology 12/13/23 Gilda Leong MD [address] [facility], [address] [address] Consulting Physician Neurology 03/15/24 Geovany Ventura MD [address] [facility], [address] [address] [employer] Channeler Cardiology 04/14/24 Oracle Drm Consultant Relationship Specialty Start Date End Date Mindy Morgan MD [address] [address] PCP - General Family Medicine 12/10/23 Oliver Auguste PA-C [address] [facility] Department of [place] [address] PCP - Anurag ARAGON PCP 12/09/23 Ramiro Bhandari MD [address] [facility], [address] [address] [employer] Cardiology 12/13/23 Gilda Leong MD [address] [facility], [address] [address] Consulting Physician Neurology 03/15/24 Geovany Ventura MD [address] [facility], [address] [address] [employer] Channeler Cardiology 04/14/24 Oracle Drm Consultant Relationship Specialty Start Date End Date Mindy Morgan MD [address] [address] PCP - General Family Medicine 12/10/23 Oliver Auguste PA-C [address] [facility] of [place] [address] PCP - [facility] Medicaid PCP 05/08/24 Ramiro Bhandari MD [address] [facility], [facility] [address] [place] [address] [employer] Channeler Cardiology 12/13/23 Gilda Leong MD [address] [facility], [place] [place], [place] [address] Consulting Physician Neurology 03/15/24 Geovany Ventura MD [address] [facility], [facility] [address] [place] [address] [employer] Channeler Electrophysiology 04/14/24 Oracle Drm Consultant Relationship Specialty Start Date End Date Mindy Morgan MD [address] [address] PCP - General Family Medicine 12/10/23 Oliver Auguste PA-C [address] [facility] of [place] [address] PCP - [facility] Medicaid PCP 05/08/24 Ramiro Bhandari MD [address] [facility], [facility] [address] [place] [address] [employer] Channeler Cardiology 12/13/23 Gilda Leong MD [address] [facility], [address] [address] Consulting Physician Neurology 03/15/24 Geovany Ventura MD [address] [facility], [address] [address] [employer] Channeler Electrophysiology 04/14/24 Oracle Drm Consultant Relationship Specialty Start Date End Date Mindy Morgan MD [address] [address] PCP - General Family Medicine 12/10/23 Oliver Auguste PA-C [address] [facility] Department of [place] [address] PCP - [facility] Medicaid PCP 05/08/24 Ramiro Bhandari MD [address] [facility], [address] [address] [employer] Channeler Cardiology 12/13/23 Gilda Leong MD [address] [facility], [address] [address] Consulting Physician Neurology 03/15/24 Geovany Ventura MD [address] [facility], [address] [address] [employer] Channeler Electrophysiology 04/14/24 Oracle Drm Consultant Relationship Specialty Start Date End Date Mindy Morgan MD [address] [place] [address] [address] PCP - General Family Medicine 12/10/23 Oliver Auguste PA-C [address] [facility] Department of [place] [address] PCP - [facility] Medicaid PCP 05/08/24 Ramiro Bhandari MD [address] [facility], [address] [address] [employer] Channeler Cardiology 12/13/23 Gilda Leong MD [address] [facility], [address] [address] Consulting Physician Neurology 03/15/24 Geovany Ventura MD [address] [facility], [address] [address] [employer] Channeler Electrophysiology 04/14/24 Oracle Drm Consultant Relationship Specialty Start Date End Date Mindy Morgan MD [address] [address] PCP - General Family Medicine 12/10/23 Ramiro Bhandari MD [address] [facility], [address] [address] [employer] Channeler Cardiology 12/13/23 Gilda Leong MD [address] [facility], [address] [address] Consulting Physician Neurology 03/15/24 Geovany Ventura MD [address] [facility], [address] [address] [employer] Channeler Electrophysiology 04/14/24 Oracle Drm Consultant Relationship Specialty Start Date End Date Mindy Morgan MD [address] [address] PCP - General Family Medicine 12/10/23 Ramiro Bhandari MD [address] [facility], [address] [address] [employer] Channeler Cardiology 12/13/23 Gilad Leong MD [address] [facility], [place] [place] [address] Consulting Physician Neurology 03/15/24 Geovany Ventura MD [address] [facility], [address] [address] [employer] In[employer] Channeler Electrophysiology 04/14/24 Oracle Drm Consultant Relationship Specialty Start Date End Date Mindy Morgan MD [address] [address] PCP - General Family Medicine 12/10/23 Oliver Auguste PA-C [address] [facility] Department of [place] [address] PCP - Anurag ARAGON PCP 12/09/23 Ramiro Bhandari MD [address] [facility], [facility] [address] [place] [address] [employer] Channeler Cardiology 12/13/23 Gilda Leong MD [address] [facility], [facility] [address] [facility] [place] [address] Consulting Physician Neurology 03/15/24 Geovany Ventura MD [address] [facility], [facility] [address] [place] [address] [employer] Channeler Cardiology 04/14/24 Oracle Drm Consultant Relationship Specialty Start Date End Date Mindy Morgan MD [address] [id number] PCP - General Family Medicine 12/10/23 Oliver Auguste PA-C [address] [facility] Department of [place] [address] PCP - Anurag ARAGON PCP 12/09/23 Ramiro Bhandari MD [address] [facility], [address] [address] [employer] Channeler Cardiology 12/13/23 Gilda Leong MD [address] [facility], [address] [address] Consulting Physician Neurology 03/15/24 Geovany Ventura MD [address] [facility], [address] [address] Welt In[employer] Channeler Cardiology 04/14/24 Oracle Drm Consultant Relationship Specialty Start Date End Date Mindy Morgan MD [address] [address] PCP - General Family Medicine 12/10/23 Oliver Auguste PA-C [address] [address] [facility] Department of [place] [address] PCP - Anurag ARAGON PCP 12/09/23 Ramiro Bhandari MD [address] [facility], [address] [address] [employer] Channeler Cardiology 12/13/23 Gilda Leong MD [address] [facility], [address] [address] Consulting Physician Neurology 03/15/24 Geovany Ventura MD [address] [facility], [address] [address] Welt In[employer] Channeler Cardiology 04/14/24 Oracle Drm Consultant Relationship Specialty Start Date End Date Mindy Morgan MD [address] [address] PCP - General Family Medicine 12/10/23 Ramiro Bhandari MD [address] [facility], [address] [address] Welt Insole [facility] 12/13/23 Gilda Leong MD [address] [place] [address] Consulting Physician Neurology 03/15/24 Geovany Ventura MD [address] [facility], [address] [place] [address] [employer] [facility] 04/14/24 [employer] Consultant Relationship Specialty Start Date End Date Mnidy Morgan MD [address] [address] PCP - General Family Medicine 12/10/23 Ramiro Bhandari MD [address] [facility], [address] [address] [employer] [facility] 12/13/23 Gilda Leong MD [address] [facility], [place] [address] [place] [address] Consulting Physician Neurology 03/15/24 Geovany Ventura MD [address] [facility], [address] [place] [address] [employer] [facility] 04/14/24 [employer] D[employer] Consultant Relationship Specialty Start Date End Date Mindy Morgan MD [address] [address] PCP - General Family Medicine 12/10/23 Ramiro Bhandari MD [address] [facility], [address] [place] [address] [employer] [facility] 12/13/23 Gilda Leong MD [address] [facility], [address] [address] Consulting Physician Neurology 03/15/24 Geovany Ventura MD [address] [facility], [address] [address] [employer] [facility] 04/14/24 [employer] D[employer] Consultant Relationship Specialty Start Date End Date Mindy Morgan MD [address] [address] PCP - General Family Medicine 12/10/23 Ramiro Bhandari MD [address] [facility], [address] [address] [employer] [facility] 12/13/23 Gilda Leong MD [address] [facility], [facility] [address] [place] [address] Consulting Physician Neurology 03/15/24 Geovany Ventura MD [address] [facility], [address] [address] [employer] [facility] 04/14/24 [employer] Consultant Relationship Specialty Start Date End Date Mindy Morgan MD [address] [address] PCP - General Family Medicine 12/10/23 Ramiro Bhandari MD [address] [facility], [address] [address] [employer] [facility] 12/13/23 Gilda Leong MD [address] [facility], [facility] [address] [facility] [place] [address] Consulting Physician Neurology 03/15/24 Geovany Ventura MD [address] [facility], [place] [address] [place] [address] [employer] [facility] 04/14/24 [employer] D[employer] Consultant Relationship Specialty Start Date End Date Mindy Morgan MD 85 [facility] [address] [place], [place] [id number] PCP - General Family Medicine 12/10/23 Ramiro Bhandari MD [address] [facility], [facility] [address] [place] [address] [employer] [facility]iology 12/13/23 Gilda Leong MD [address] [facility], [facility] [address] [facility] [place] [address] Consulting Physician Neurology 03/15/24 Geovany Ventura MD [address] [facility], [facility] [address] [place] [address] [employer] [facility] 04/14/24 [employer] D[employer] Consultant Relationship Specialty Start Date End Date Mindy Morgan MD [address] [place] [address] PCP - General Family Medicine 11/15/18 Brianna Kamara DO [address] [place] [address] Internal Medicine 02/09/20 [employer] Consultant Relationship Specialty Start Date End Date Mindy Morgan MD [address] [address] PCP - General Family Medicine 12/10/23 Ramiro Bhandari MD [address] [facility], [address] [address] [employer] [facility] 12/13/23 Gilda Leong MD [address] [facility], [address] [address] Consulting Physician Neurology 03/15/24 Geovany Ventura MD [address] [facility], [address] [address] [employer] [facility] 04/14/24 [employer] D[employer] Consultant Relationship Specialty Start Date End Date Mindy Morgan MD [address] [address] PCP - General Family Medicine 12/10/23 Ramiro Bhandari MD [address] [facility], [address] [address] [employer] [facility] 12/13/23 Gilda Leong MD [address] [facility], [address] [address] Consulting Physician Neurology 03/15/24 Geovany Ventura MD [address] [facility], [address] [address] [employer] [facility] 04/14/24 [employer] D[employer] Consultant Relationship Specialty Start Date End Date Mindy Morgan MD 85 [place] [address] PCP - General Family Medicine 04/15/23 [employer] Consultant Relationship Specialty Start Date End Date Mindy Morgan MD [address] [place] [id number] PCP - General Family Medicine 04/15/23 [employer] D[employer] Consultant Relationship Specialty Start Date End Date Mindy Morgan MD [address] [place] [id number] PCP - General Family Medicine 04/15/23 [employer] Drm Consultant Relationship Specialty Start Date End Date Mindy Morgan MD [address] [address] PCP - General Family Medicine 12/10/23 Ramiro Bhandari MD [address] [facility], [address] [address] [employer] [facility] 12/13/23 Gilda Leong MD [address] [facility], [facility] [address] [place] [address] Consulting Physician Neurology 03/15/24 Geovany Ventura MD [address] [facility], [address] [address] [employer] [facility] 04/14/24 [employer] D[employer] Consultant Relationship Specialty Start Date End Date Mindy Morgan MD [address] [address] PCP - General Family Medicine 12/10/23 Ramiro Bhandari MD [address] [facility] Office [facility], [address] [address] [employer] [facility] Inter[facility]iology 12/13/23 Gilda Leong MD [address] [facility], [facility] [address] [place], [place] [id number] Consulting Physician Neurology 03/15/24 Geovany Ventura MD [address] [facility], [address] [address] [employer] [facility] 04/14/24 Oracle Drm Consultant Relationship Specialty Start Date End Date Mindy Morgan MD [address] [address] PCP - General Family Medicine 12/10/23 Oliver Auguste PA-C [address] [address] Department of [place] [address] PCP - Anurag ARAGON PCP 02/06/25 Ramiro Bhandari MD [address] [facility], [address] [address] [employer] [facility] 12/13/23 Gilda Leong MD [address] [facility], [address] [address] Consulting Physician Neurology 03/15/24 Geovany Ventura MD [address] [facility], [address] [address] [employer] [facility] 04/14/24 [employer] Drm Consultant Relationship Specialty Start Date End Date Mindy Morgan MD [address]az She[address] [address] PCP - General Family Medicine 12/10/23 Oliver Auguste PA-C [address] [address] Department of [place] [address] PCP - Anurag ARAGON PCP 02/06/25 Ramiro Bhandari MD [address] [facility], [address] [address] [employer] [facility] 12/13/23 Gilda Leong MD [address] [facility], [facility] [address] [place] [address] Consulting Physician Neurology 03/15/24 Geovany Ventura MD [address] [facility], [address] [address] [employer] [facility] 04/14/24 [employer] Drm Consultant Relationship Specialty Start Date End Date Mindy Morgan MD [address] [address] PCP - General Family Medicine 12/10/23 Oliver Auguste PA-C [address] [facility] Department of [place] [address] PCP - Anurag ACO PCP 02/06/25 Ramiro Bhandari MD [address] [facility], [place] [address] [place] [address] [employer] [facility] 12/13/23 Gilda Leong MD [address] [facility], [place] [address] [place], [place] [id number] Consulting Physician Neurology 03/15/24 Geovany Ventura MD [address] [facility], [facility] [address] [place] [address] [employer] [facility] 04/14/24 [employer] Drm Consultant Relationship Specialty Start Date End Date Mindy Morgan MD [address] [address] PCP - General Family Medicine 12/10/23 Oliver Auguste PA-C [address] [facility] Department of [place] [address] PCP - Anurag ACO PCP 02/06/25 Ramiro Bhandari MD [address] [facility], [facility] [address] [place] [address] [employer] [facility] 12/13/23 Gilda Leong MD [address] [facility], [facility] [address] [facility] [place] [address] Consulting Physician Neurology 03/15/24 Geovany Ventura MD [address] [facility], [place] [address] [place] [address] [employer] [facility] 04/14/24 Oracle Drm Consultant Relationship Specialty Start Date End Date Mindy Morgan MD 85 [facility] [address] [place] [address] PCP - General Family Medicine 12/10/23 Oliver Auguste PA-C [address] [facility] Department of [place] [address] PCP - Anurag ARAGON PCP 02/06/25 Ramiro Bhandari MD [address] [facility], [facility] [address] [place] [address] [employer] [facility] 12/13/23 Gilda Leong MD [address] [facility], [facility] [address] [facility] [address] Consulting Physician Neurology 03/15/24 Geovany Ventura MD [address] [facility], [place] [address] [place] [address] [employer] [facility] 04/14/24 Oracle Drm Consultant Relationship Specialty Start Date End Date Mindy Morgan MD 85 [facility] [address] [place] [address] PCP - General Family Medicine 12/10/23 Oliver Auguste PA-C [address] [facility] Department of [place] [address] PCP - Anurag [facility] PCP 02/06/25 Ramiro Bhandari MD [address] [facility], [address] [address] [employer] [facility] 12/13/23 Gilda Leong MD [address] [facility], [facility] [address] [place], [place] [address] Consulting Physician Neurology 03/15/24 Geovany Vnetura MD [address] [facility], [address] [address] [employer] [facility] 04/14/24 Oracle Drm Consultant Relationship Specialty Start Date End Date Mindy Morgan MD [address] [place] [address] PCP - General Family Medicine 04/15/23 Oracle Drm Consultant Relationship Specialty Start Date End Date Mindy Morgan MD [address] [place] [address] PCP - General Family Medicine 04/15/23 [employer] D[employer] Consultant Relationship Specialty Start Date End Date Mindy Morgan MD [address] [place] [address] PCP - General Family Medicine 04/15/23 [employer] Drm Consultant Relationship Specialty Start Date End Date Mindy Morgan MD [address] [address] PCP - General Family Medicine 12/10/23 Oliver Auguste PA-C [id number] [facility] Department of [place] [address] PCP - Anurag ARAGON PCP 02/06/25 Ramiro Bhandari MD [address] [facility], [place] [address] [place] [address] [employer] [facility] 12/13/23 Gilda Leong MD [address] [facility], [place] [address] [place] [address] Consulting Physician Neurology 03/15/24 Geovany Ventura MD [address] [facility], [place] [address] [place] [address] [employer] [facility] 04/14/24 Kaley Dale MD [address] [facility], [place] [address] [place] [address] [employer] [facility] Vascular Surgery 05/24/25 [employer] Drm Consultant Relationship Specialty Start Date End Date Minyd Morgan MD [address] [address] PCP - General Family Medicine 12/10/23 Oliver Auguste PA-C [address] [address] Department of [place] [address] PCP - Anurag ACO PCP 02/06/25 Ramiro Bhandari MD [address] [facility], [address] [address] [employer] [facility] 12/13/23 Gilda Leong MD [address] [facility], [place] [address] [place], [place] [address] Consulting Physician Neurology 03/15/24 Geovany Ventura MD [address] [facility], [address] [address] [employer] [facility] 04/14/24 Kaley Dale MD [address] [facility], [address] [address] [employer] [facility] V[facility] Surgery 05/24/25 [employer] Drm Consultant Relationship Specialty Start Date End Date Mindy Morgan MD [address] [place] [address] [address] [place] [address] PCP - General Family Medicine 12/10/23 Oliver Auguste PA-C [address] [facility] Department of [place] [address] PCP - Anurag ACO PCP 02/06/25 Ramiro Bhandari MD [address] [facility], [facility] [address] [place] [address] [employer] [facility] 12/13/23 Gilda Leong MD [address] [facility], [address] [address] Consulting Physician Neurology 03/15/24 Geovany Ventura MD [address] [facility], [facility] [address] [place] [address] [employer] [facility] 04/14/24 Kaley Dale MD [address] [facility], [address] [address] [employer] [facility] V[facility] Surgery 05/24/25 [employer] Drm Consultant Relationship Specialty Start Date End Date Mindy Morgan MD 85 [facility] [address] [place] [address] PCP - General Family Medicine 12/10/23 Oliver Auguste PA-C [address] [facility] Department of [place] [address] PCP - Anurag ARAGON PCP 02/06/25 Ramiro Bhandari MD [address] [facility], [facility] [address] [place] [address] [employer] [facility] 12/13/23 Gilda Leong MD [address] [facility], [address] [address] Consulting Physician Neurology 03/15/24 Geovany Ventura MD [address] [facility], [facility] [address] [place] [address] [employer] [facility] 04/14/24 Kaley Dale MD [address] [facility], [address] [address] [employer] [facility] V[facility] Surgery 05/24/25 [employer] Drm Consultant Relationship Specialty Start Date End Date Minyd Morgan MD [address] [place] [address] PCP - General Family Medicine 04/15/23 Oracle Drm Consultant Relationship Specialty Start Date End Date Mindy Morgan MD [address] [place] [address] PCP - General Family Medicine 04/15/23 Oracle Drm Consultant Relationship Specialty Start Date End Date Mindy Morgan MD [address] [place] [id number] PCP - General Family Medicine 12/10/23 Oliver Auguste PA-C [id number] [address] Department of [place] [address] PCP - Anurag NOELO PCP 02/06/25 Ramiro Bhandari MD [address] [facility], [address] [address] [employer] [facility]iology 12/13/23 Gilda Leong MD [address] [facility], [place] [address] [place] [address] Consulting Physician Neurology 03/15/24 Geovany Ventura MD [address] [facility], [place] [address] [place] [address] [employer] [facility] 04/14/24 Kaley Dale MD [address] [facility], [facility] [address] [place] [address] [employer] [facility] V[facility] Surgery 05/24/25 Oracle Drm Consultant Relationship Specialty Start Date End Date Mindy Morgan MD [address] [address] PCP - General Family Medicine 12/10/23 Oliver Auguste PA-C [address] [facility] Department of [place] [address] PCP - Anurag ARAGON PCP 02/06/25 Ramiro Bhandari MD [address] [facility], [facility] [address] [place] [address] [employer] [facility] Inter[facility] Cardiology 12/13/23 Gilda Leong MD [address] [facility], [place] [address] [place] [address] Consulting Physician Neurology 03/15/24 Geovany Ventura MD [address] [facility], [facility] [address] [place] [address] [employer] [facility] 04/14/24 Kaley Dale MD [address] [facility] [address], [place] [address] [employer] [facility] V[facility] Surgery 05/24/25 Scheduled Active and Recently Administ ered Medications (unrecognized section and content) Medication Order 12/08/2023 12/09/2023 12/10/2023 ceFAZolin (Ancef) 2 g IV in dextrose 5% 50 mL (COMPLETED) 2 g, intravenous, at 100 mL/hr, Administer over 30 Minutes, Once, On Wed12/10/23 at 0545, For 1 dose, Preprocedure, Administer within 60 minutes prior to incision. Duplex bag - activate before hanging., Dosing of this medication varies based on severity of illness. Does this patient have sepsis or concern for sepsis (probable or documented infection plus systemic manifestations of infection)? No, Suspected Indication (Select all that apply): Surgical Prophylaxis 0545 (New Bag - Prov ider: Pamella Prajapati, RT)0615 (Stopped - Provider: Pamella Prajapati RT) chlorhexidine (Hibiclens) 4 % liquid Topical, Once, On Wed12/10/23 at 0545, For 1 dose, Preprocedure, For pre-op skin preparation 0545 (Due) mupirocin (Bactroban) 2 % ointment 1 Application 1 Application, Topical, Once, On Wed12/10/23 at 0545, For 1 dose, Preprocedure, Apply topically to both nares prior to procedure. Do not initiate until staph screening obtained first. 0545 (Due) Continuous Medication Order 12/08/2023 12/09/2023 12/10/2023 sodium chloride 0.9% infusion 100 mL/hr, intravenous, Continuous, Starting on Wed12/10/23 at 0545, Preprocedure 0545 (Due) PRN Medication Order 12/08/2023 12/09/2023 12/10/2023 acetaminophen (Tylenol) tablet 650 mg 650 mg, oral, Every 4 hours PRN, pain mild (1-3), first line, Starting on Wed12/10/23 at 0947, If ordered PRN for pain, nurse is permitted to administer this medication for higher pain scores based on patient preference? Yes lidocaine PF (Xylocaine) 10 mg/mL (1 %) injection (CANCELED) As needed, Starting on Wed12/10/23 at 0900, Intraprocedure 0900 (Given - Provid er: Geovany Ventura MD) ondansetron (Zofran) injection 4 mg 4 mg, intravenous, Every 8 hours PRN, nausea/vomiting, first line, Starting on Wed12/10/23 at 0947, 1st Line. Give IV if patient is unable to take orally. If inadequate response within 60 minutes, proceed to next-line agent for same PRN reason or contact provider if no further options ordered. When administering via IV Push, administer over 3-5 minutes. Scheduled Medication Order 04/30/2024 05/01/2024 05/02/2024 ceFAZolin in dextrose (iso-os) (Ancef) IVPB 1 g (COMPLETED) 1 g, intravenous, at 100 mL/hr, Administer over 30 Minutes, Once, On Wed05/02/24 at 1245, For 1 dose, Preprocedure, Administer within 60 minutes prior to incision. premix bag, Dosing of this medication varies based on severity of illness. Does this patient have sepsis or concern for sepsis (probable or documented infection plus systemic manifestations of infection)? No, Suspected Indication (Select all that apply): Surgical Prophylaxis, Indications: Surgical Prophylaxis 1416 (New Bag - Prov ider: Ely Ibarra RN)1434 (Stopped - Provider: Maria Isabel Fallon RN) chlorhexidine (Hibiclens) 4 % liquid (COMPLETED) Topical, Once, On Wed05/02/24 at 1245, For 1 dose, Preprocedure, For pre-op skin preparation 1301 (Given - Provid er: Wilma Mejia RN) mupirocin (Bactroban) 2 % ointment 1 Application (COMPLETED) 1 Application, Topical, Once, On Wed05/02/24 at 1245, For 1 dose, Preprocedure, Apply topically to both nares prior to procedure. Do not initiate until staph screening obtained first. 1301 (Given - Provid er: Wilma Mejia RN) perflutren lipid microspheres (Definity) injection 0.5-10 mL of dilution 0.5-10 mL of dilution, intravenous, Once in imaging, Starting on Wed05/02/24 at 1217, For 1 dose, Preprocedure, Contrast - for use by imaging provider only. Prior to administration, Definity product must be activated. First, bring vial to room temperature. Then, shake vial for 45 seconds. Do not use if the 45 second activation cycle has not been completed. Following activation, the product will appear as a milky white suspension and may be used immediately. If not used within 5 minutes of activation, re-suspend by inverting and shaking the vial for 10 seconds. Discard unused product. Administration: Dilute 1.3 mL of activated DEFINITY with 8.7 mL of normal saline in a 10 mL syringe. Inject 0.5 mL of diluted DEFINITY when notified the images/film are unclear to enhance view of Left Ventricular borders. Repeat 0.5 mL of DEFINITY until clear images are obtained, not to exceed 10 mLs. Once images are obtained or limit of medication is reached, flush line with 10 mL of Normal Saline. Continuous Medication Order 04/30/2024 05/01/2024 05/02/2024 sodium chloride 0.9% infusion (CANCELED) 20 mL/hr, intravenous, Continuous, Starting on Wed05/02/24 at 1245, Preprocedure 1259 (New Bag - Prov ider: Wilma Mejia RN)1612 (Due: Stopped - Provider: SIMÓN Cohn) sodium chloride 0.9% infusion (CANCELED) 10 mL/hr, intravenous, Continuous, Starting on Wed05/02/24 at 1245, Preprocedure 1259 (New Bag - Prov ider: Wilma Mejia RN)1612 (Due: Stopped - Provider: SIMÓN Cohn) PRN Medication Order 04/30/2024 05/01/2024 05/02/2024 acetaminophen (Tylenol) tablet 650 mg 650 mg, oral, Every 4 hours PRN, pain mild (1-3), first line, pain moderate (4-6), first line, Starting on Wed05/02/24 at 1534, If ordered PRN for pain, nurse is permitted to administer this medication for higher pain scores based on patient preference? Yes fentaNYL PF (Sublimaze) injection (CANCELED) As needed, Starting on Wed05/02/24 at 1436, Intraprocedure 1436 (Given - Provid er: Ely Ibarra RN - Comment: sedation)1439 (Given - Provider: Ely Ibarra RN - Comment: sedation)1446 (Given - Provider: Ely Ibarra RN - Comment: sedation) ibuprofen tablet 800 mg 800 mg, oral, Every 8 hours PRN, pain mild (1-3), first line, pain moderate (4-6), first line, pain severe (7-10), first line, Starting on Wed05/02/24 at 1714, May administer with food to reduce GI upset., If ordered PRN for pain, nurse is permitted to administer this medication for higher pain scores based on patient preference? Yes lidocaine PF (Xylocaine) 10 mg/mL (1 %) injection (CANCELED) As needed, Starting on Wed05/02/24 at 1442, Intraprocedure 1442 (Given - Provid er: Geovany Ventura MD)1512 (Given - Provider: Geovany Ventura MD)1526 (Given - Provider: Geovany Ventura MD - Comment: loop removal) midazolam (Versed) injection (CANCELED) As needed, Starting on Wed05/02/24 at 1437, Intraprocedure 1437 (Given - Provid er: Ely Ibarra RN - Comment: sedation)1446 (Given - Provider: Ely Ibarra RN - Comment: sedation) FOR RECORDS PERTAINING TO PATIENTS WHO ARE OR HAVE BEEN ENROLLED IN A CHEMICAL DEPENDENCY/SUBSTANCEABUSE PROGRAM, SOME INFORMATION MAY BE OMITTED. This clinical summary was aggregated from multiple sources. Caution should be exercised in using it in the provision of clinical care. This summary normalizes information from multiple sources, and as a consequence, information in this document may materially change the coding, format and clinical context of patient data. In addition, data may be omitted in some cases. CLINICAL DECISIONS SHOULD BE BASED ON THE PRIMARY CLINICAL RECORDS. [employer] [facility]. provides no warranty or guarantee of the accuracy or completeness of information in this document.
[2025-08-15] MEDS: HYDROMORPHONE HCL 1 MG/ML CARTRIDGE IM (12:09)
[2025-08-15 12:26] VITALS: BP 143/71; PULSE 76; O2SAT 90
--- NOTE | 2025-08-15 13:48 | ED.GENADUL1 ---
HPI HPI - General Adult General Chief complaint: Extremity Problem, Nontraumatic Stated complaint: DIZZINESS Time Seen by Provider: 08/15/25 11:07 Source: patient Mode of arrival: Wheelchair Limitations: no limitations History of Present Illness HPI narrative: Patient is a 49-year-old female presenting to the emergency department for concerns of right lower extremity pain. Patient states she has a history of neuropathy and chronic pain. She states that over the last few weeks she has had worsening pain in the right lower back going into the lateral aspect of her right leg. She states that it is difficult to walk because of the pain, and is requiring a walker. She denies any numbness tingling lower extremities. No loss of bladder/bowel function. No history of IV drug use. No fevers or chills. No prior surgeries to the back. She states she was recently admitted to the hospital a few days ago and left AMA because she was unhappy with the care provided. She has been treated for abdominal pressure ulcers that were infected and being worked up for thrombocytopenia. She denies any current chest pain or shortness breath. No abdominal pain, nausea, or vomiting. No history of trauma. Related Data Home Medications ?Medication ?Instructions ?Recorded ?Confirmed albuterol sulfate 90 mcg/actuation 2 inh inhalation Q6H PRN shortness 02/26/25 08/15/25 aerosol inhaler (Ventolin HFA) of breath or wheezing aspirin 81 mg tablet,delayed 81 mg PO DAILY 02/26/25 08/15/25 release (Adult Low Dose Aspirin) atorvastatin 80 mg tablet 80 mg PO DAILY 02/26/25 08/15/25 brivaracetam 100 mg tablet 200 mg PO BID 02/26/25 08/15/25 (Briviact) bupropion HCl 100 mg tablet 100 mg PO TID 02/26/25 08/15/25 dulaglutide 3 mg/0.5 mL 3 mg subcut QWEEK 02/26/25 08/15/25 subcutaneous pen injector (Trulicity) ezetimibe 10 mg tablet 10 mg PO DAILY 02/26/25 08/15/25 fenofibrate nanocrystallized 145 145 mg PO DAILY 02/26/25 08/15/25 mg tablet gabapentin 600 mg tablet 1,200 mg PO TID 02/26/25 08/15/25 lamotrigine 200 mg tablet 200 mg PO DAILY 02/26/25 08/15/25 metoprolol tartrate 25 mg tablet 25 mg PO BID 02/26/25 08/15/25 montelukast 10 mg tablet 10 mg PO DAILY 02/26/25 08/15/25 nitroglycerin 0.4 mg sublingual 0.4 mg sublingual Q5M PRN chest 02/26/25 08/15/25 tablet pain ondansetron HCl 8 mg tablet 8 mg PO Q8H PRN nausea and vomiting 02/26/25 08/15/25 pantoprazole 40 mg tablet,delayed 40 mg PO BID 02/26/25 08/15/25 release sucralfate 1 gram tablet (Carafate) 1 g PO Q6H PRN stomach upset 02/26/25 08/15/25 topiramate 100 mg tablet 250 mg PO BID 02/26/25 08/15/25 umeclidinium 62.5 mcg-vilanterol 1 inh inhalation DAILY 02/26/25 08/15/25 25 mcg/actuation powdr for inhalation (Anoro Ellipta) valacyclovir 500 mg tablet 500 mg PO DAILY 02/26/25 08/15/25 hydrocodone 5 mg-acetaminophen 325 1 tab PO Q6H PRN pain 08/15/25 08/15/25 mg tablet Previous Rx's ?Medication ?Instructions ?Recorded oxycodone 5 mg tablet 5 mg PO Q8H PRN pain 4 days #10 08/15/25 tabs Allergies Allergy/AdvReac Type Severity Reaction Status Date / Time dimenhydrinate (From Allergy Severe tongue Verified 08/15/25 11:09 Dramamine) swelling pregabalin (From Lyrica) Allergy Severe tonue Verified 08/15/25 11:09 swelling seafood Allergy Severe Hives Uncoded 08/15/25 11:09 Opioid HPI Opioid Management Most Recent Opioid Data: Last Pain Scale 9 Today, 12:45 Last ED Pain Assessment Today, 11:00 Last MAR Pain Assessment Today, 12:09 Review of Systems ROS Status of ROS 10 or more systems reviewed and unremarkable except as noted in history and below [facility] Medical History (Updated 08/15/25 @ 13:24 by Umberto Falcon DO) Bradycardia ?R00.1 - Bradycardia, unspecified (ICD-10) HTN (hypertension) ?I10 - Essential (primary) hypertension (ICD-10) GERD (gastroesophageal reflux disease) ?K21.9 - Gastro-esophageal reflux disease without esophagitis (ICD-10) IBS (irritable bowel syndrome) ?K58.9 - Irritable bowel syndrome, unspecified (ICD-10) On home oxygen therapy ?Z99.81 - Dependence on supplemental oxygen (ICD-10) Diabetes ?E11.9 - Type 2 diabetes mellitus without complications (ICD-10) Cardiac pacemaker ?Z95.0 - Presence of cardiac pacemaker (ICD-10) Social History Little interest or pleasure in doing things: not at all Feeling down, depressed, or hopeless: not at all Exam Narrative Exam Narrative: CONSTITUTIONAL: Lying flat on the stretcher, does not appear to be significantly uncomfortable, answering questions and following commands appropriately SKIN: Was warm and dry. EYES: Sclerae white. EARS, NOSE, THROAT: Moist oral mucosa. RESPIRATORY: Clear to auscultation bilaterally, no wheezes, crackles, or stridor, no use of accessory muscles CARDIOVASCULAR: Normal rate and regular rhythm. Lower extremities are warm and well-perfused with good distal pulses GASTROINTESTINAL: Abdomen is soft, nontender, nondistended. No rebound tenderness or guarding. There are two ulcerations on the patient's lower abdomen which do not appear to be significant infected, there is no active drainage or surrounding cellulitic changes. MUSCULOSKELETAL: No peripheral edema. No midline L-spine tenderness. NEUROLOGIC: Patient is awake and alert. Equal strength and sensation to light touch to bilateral lower extremities. Ambulates with an antalgic gait. Facies were symmetrical. Constitutional Vital Signs, click to edit/add: Last Vital Signs Temp 99.0 F 08/15/25 11:03 Pulse 76 08/15/25 12:26 Resp 18 08/15/25 12:26 BP 143/71 H 08/15/25 12:26 Pulse Ox 90 L 08/15/25 12:26 O2 Del Method Room Air 08/15/25 12:26 Course Vital Signs Vital signs: Vital Signs Temperature 99.0 F 08/15/25 11:03 Pulse Rate 81 08/15/25 11:03 Respiratory Rate 20 08/15/25 11:03 Blood Pressure 107/80 08/15/25 11:03 Pulse Oximetry 97 08/15/25 11:03 Oxygen Delivery Method Room Air 08/15/25 11:03 Temperature 99.0 F 08/15/25 11:03 Pulse Rate 76 08/15/25 12: Respiratory Rate 18 08/15/25 12: Blood Pressure 143/71 H 08/15/25 12: Pulse Oximetry 90 L 08/15/25 12: Oxygen Delivery Method Room Air 08/15/25 12:26 Medical Decision Making MDM Narrative Medical decision making narrative: Patient is a 49-year-old female presenting to the emergency department for 3-week history of atraumatic right lower extremity pain, acutely worsening today. Vital signs arrival are within normal limits. She is afebrile and hemodynamically stable. Examination as noted above, however was notable for reproducible tender palpation throughout the lateral aspect of the right hip/thigh. No midline L-spine tenderness. On review of external documentation, patient was admitted to the hospital 3 days ago at [facility] for abdominal ulcers which were infected. She had a CT abdomen/pelvis which was unremarkable without fluid collections, subcutaneous air, or herniation. CT was also unremarkable for osseus abnormalities of the spine. She had a surgical consultation at that time, and no acute inventions were recommended. She is currently on an appropriate antibiotic therapy based on wound cultures. Additionally, she was being worked up for chronic thrombocytopenia. The patient presents today requesting acute pain management. Differential diagnosis includes musculoskeletal pain, neuropathy, lateral femoral cutaneous syndrome, sciatica, lumbar radiculopathy. No findings that would be suggestive of cauda equina syndrome. No history of IV drug use, fevers, midline vertebral tenderness to suggest spinal epidural abscess. No recent injuries to suggest fracture or dislocations. No history of cancer to suggest metastatic disease. Patient will be treated symptomatically with IM Dilaudid. On reevaluation, the patient states she feels improved and wants to go home to take a nap . She does not want to be readmitted to the hospital. The patient was able to ambulate, and has a walker at home for assistance. She also lives with her mother who can help her get around the house. I do believe the patient is stable for discharge. They were instructed to follow up with her PCP for further care. Return precautions were given including any new or worsening symptoms. They were given a prescription for [place] 5 mg x 10 tablets. Patient understands and agrees to the plan. FINAL IMPRESSION: #Acute right lower extremity pain DISPOSITION: Discharged home CONDITION: Fair Medical Records Medical records reviewed: Yes I reviewed the patient's medical records Discharge Plan Discharge Chief Complaint: Extremity Problem, Nontraumatic Clinical Impression: Chronic leg pain, Neuropathy Patient Disposition: Home, Self-Care Time of Disposition Decision: 13:24 Condition: Good Mode of Transportation: Private Vehicle Prescriptions / Home Meds: New oxycodone 5 mg tablet 5 mg PO Q8H PRN (Reason: pain) 4 Days Qty: 10 0RF No Action hydrocodone-acetaminophen 5-325 mg tablet 1 tab PO Q6H PRN (Reason: pain) atorvastatin 80 mg tablet 80 mg PO DAILY Briviact 100 mg tablet 200 mg PO BID Trulicity 3 mg/0.5 mL pen injector 3 mg SUBCUT QWEEK ezetimibe 10 mg tablet 10 mg PO DAILY fenofibrate nanocrystallized 145 mg tablet 145 mg PO DAILY gabapentin 600 mg tablet 1,200 mg PO TID lamotrigine 200 mg tablet 200 mg PO DAILY metoprolol tartrate 25 mg tablet 25 mg PO BID montelukast 10 mg tablet 10 mg PO DAILY nitroglycerin 0.4 mg tablet, sublingual 0.4 mg sublingual Q5M PRN (Reason: chest pain) pantoprazole 40 mg tablet,delayed release (DR/EC) 40 mg PO BID topiramate 100 mg tablet 250 mg PO BID umeclidinium-vilanterol [Anoro Ellipta] 62.5-25 mcg/actuation blister with device 1 inh INHALATION DAILY valacyclovir 500 mg tablet 500 mg PO DAILY sucralfate [Carafate] 1 gram tablet 1 g PO Q6H PRN (Reason: stomach upset) bupropion HCl 100 mg tablet 100 mg PO TID Rx Instructions: administer 6 hours apart ondansetron HCl 8 mg tablet 8 mg PO Q8H PRN (Reason: nausea and vomiting) Rx Instructions: 1st dose 1-2 hr before radiation albuterol sulfate [Ventolin HFA] 90 mcg/actuation HFA aerosol inhaler 2 inh inhalation Q6H PRN (Reason: shortness of breath or wheezing) aspirin [Adult Low Dose Aspirin] 81 mg tablet,delayed release (DR/EC) 81 mg PO DAILY Print Language: Lao Instructions: Narcotic Safety (ED), Leg Pain (ED) Referrals: TUSHAR MALDONADO [Primary Care Provider, Family Practice] - 1 week Discharge Date/Time: 08/15/25 13:37
== END 2025-08-15 13:37 | disposition home or self-care (01) ==
PROVIDERS: Emergency Provider Student in an Organized Health Care Education/Training Program; PCP Family Medicine
DX: M79.604 Pain in right leg (principal); G62.9 Polyneuropathy, unspecified; G89.29 Other chronic pain
CPT/HCPCS: 96372; 99284; J1171